=== PATIENT | male | born 1945 | race African-American/Black ===

== ENCOUNTER 2016-08-17 07:40 | Day surgery (SDC) | payer OTHER, BC ==
[2016-08-17 08:48] LABS: MCH 28.3 pg (25.7-33.7); MCHC 31.1 g/dl (32.0-35.9); MEAN CELL VOLUME 91.2 fl (80-96); MEAN PLT VOLUME 9.9 fl (7.5-11.1); PLATELET COUNT 618 K/MM3 (134-434); RDW 31.2 % (11.9-15.9); WHITE BLOOD COUNT 12.5 K/mm3 (4.0-10.0)
[2016-08-17 09:13] LABS: BILIRUBIN,DIRECT 0.3 mg/dL (0.0-0.2); BILIRUBIN,TOTAL 1.3 mg/dL (0.2-1.0); CALCIUM 9.1 mg/dL (8.5-10.1); CREATININE 0.7 mg/dL (0.7-1.3); TOT PROT 6.2 g/dl (6.4-8.2)
[2016-08-17 10:38] LABS: METAMYELOCYTE 1 % (0-2)
[2016-08-17 10:39] LABS: ANISOCYTOSIS 3+; HYPOCHROMIA 2+; MICROCYTOSIS 1+; PLATELET ESTIMATE MOD INCREASED (NORMAL); POLYCHROMASIA 1+
[2016-08-17] MEDS ORDERED: FUROSEMIDE 100 MG/10 ML INJECTABLE VIAL ONE (18:04)
[2016-08-17] MEDS ORDERED: FUROSEMIDE 40 MG/4 ML INJECTABLE VIAL IVPUSH STA (18:19)
[2016-08-17 20:09] LABS: MCH 27.8 pg (25.7-33.7); MCHC 30.8 g/dl (32.0-35.9); MEAN CELL VOLUME 90.3 fl (80-96); RDW 25.2 % (11.9-15.9)
[2016-08-17 21:16] LABS: PLATELET COUNT 604 K/MM3 (134-434); PLATELET ESTIMATE INCREASED (NORMAL)
[2016-08-17 22:12] LABS: MEAN PLT VOLUME 10.5 fl (7.5-11.1)
--- NOTE | 2016-08-17 23:05 | HP ---
Satellite [facility] - Chief Complaint Chief Complaint: Here for elective blood transfusion. no complaints History Source: Patient Limitations to Obtaining History: No Limitations - Past Medical History Allergies/Adverse Reactions: Allergies Allergy/AdvReac Type Severity Reaction Status Date / Time No Known Allergies Allergy Verified 07/12/16 12:22 Cardiovascular: Yes: HTN Pulmonary: Yes: COPD Heme/Onc: Yes: Myeloproliferative Synd, Other (MDS) - Current Medications Current Medications: Medication Instructions Recorded Tamsulosin HCl 0.4 mg PO DAILY 08/31/12 Anagrelide HCl [Agrylin -] 1 mg PO BID 04/11/14 Aspirin [ASA -] 81 mg PO DAILY 04/11/14 Prochlorperazine Maleate 10 mg PO PRN PRN 12/22/15 Deferasirox [Jadenu] 720 mg OD BID 07/12/16 Sotalol HCl [Betapace -] 80 mg PO BID@0800,2000 #60 tablet 07/14/16 Ceftin - 500 mg PO BID 08/17/16 Omeprazole 20 mg PO DAILY 08/17/16 Prednisone 10 mg PO BID 08/17/16 Satellite Physical Exam - Physical Examination Vital Signs: Vital Signs Period Temp Pulse Resp BP Sys/Paredes Pulse Ox Last 24 Hr 97.9 F-98.2 F 75-79 20-20 128-137/62-65 99 General Appearance: Well Nourished, Well Developed, Alert & Oriented x3 Lung: Clear to auscultation, Normal air movement Heart: Regular rate & rhythm, Normal S1, Normal S2 Abdomen: Soft, No tenderness, Normal bowel sounds Extremities: No edema Neurological: Intact Satellite Impression/Plan - Impression/Plan Impression: 71 y/o patient with myeloproliferative disorder. On anagrelide/asa/ jadenu/prednisone. transfuse
[2016-08-18 07:28] LABS: MCH 28.3 pg (25.7-33.7); MCHC 32.1 g/dl (32.0-35.9); MEAN CELL VOLUME 88.3 fl (80-96); MEAN PLT VOLUME 8.4 fl (7.5-11.1); PLATELET COUNT 489 K/MM3 (134-434); RDW 24.6 % (11.9-15.9); WHITE BLOOD COUNT 13.6 K/mm3 (4.0-10.0)
--- NOTE | 2016-08-18 17:27 | PN ---
Progress Note (short form) - Note Progress Note: Patient seen and examined Denies any complaints Last Vital Signs Temp Pulse Resp BP Pulse Ox 97.9 F 75 20 125/57 98 08/18/16 14:09 08/18/16 14:09 08/18/16 14:09 08/18/16 14:09 08/18/16 09:00 HEENT: VIVIAN, EOM Intact Oropharynx: No thrush, No mucositis Cor: RSR, No murmurs, No gallops Lungs: Clear to P&A Abd: Soft, Normal bowel sounds, No organomegaly Ext:No significant edema Skin: No rashes, Integument intact Abnormal Lab Results 08/17/16 08/17/16 08/18/16 06:00 19:20 06:00 WBC 13.0 H 13.6 H RBC 2.92 L 2.85 L Hgb 8.1 L D 8.1 L Hct 26.4 L D 25.2 L MCHC 30.8 L RDW 25.2 H 24.6 H Plt Count 604 H 489 H Crossmatch See Detail Abnormal Lab Results 08/17/16 08/17/16 08/18/16 06:00 19:20 06:00 WBC 13.0 H 13.6 H RBC 2.92 L 2.85 L Hgb 8.1 L D 8.1 L Hct 26.4 L D 25.2 L MCHC 30.8 L RDW 25.2 H 24.6 H Plt Count 604 H 489 H Crossmatch See Detail MEds reviewed A/P 71 y/o patient with MPD On agrylin/jadenu/ASA On prednisone 10mg bid s/p 3 units PRBCs
[2016-08-18] MEDS ORDERED: FUROSEMIDE 40 MG/4 ML INJECTABLE VIAL IVPB ONE (17:48)
[2016-08-18 18:50] VITALS: BP 143/63; PULSE 80; TEMP 98.1
== END 2016-08-18 19:31 | disposition home or self-care (01) ==
LOC: JBLOOD 07:40 → J7W 07:41 → JBLOOD 08-18 19:31
PROVIDERS: ATTEND Internal Medicine Hematology & Oncology
PROC: 30233N1 Transfusion of Nonautologous Red Blood Cells into Peripheral Vein, Percutaneous Approach (ICD-10-PCS; principal; 2016-08-17)
DX: D46.9 Myelodysplastic syndrome, unspecified (principal); I10 Essential (primary) hypertension; J44.9 Chronic obstructive pulmonary disease, unspecified
CPT/HCPCS: 36415; 36430; 80048; 80076; 85025; 85027; 86850; 86900; 86901; 86922; P9038; P9058

== ENCOUNTER 2016-10-17 08:01 | Day surgery (SDC) | payer OTHER, BC ==
[2016-10-17 09:08] LABS: MCH 29.8 pg (25.7-33.7); MCHC 31.3 g/dl (32.0-35.9); MEAN CELL VOLUME 95.2 fl (80-96); MEAN PLT VOLUME 10.4 fl (7.5-11.1); PLATELET COUNT 210 K/MM3 (134-434); RDW 34.6 % (11.9-15.9); WHITE BLOOD COUNT 15.3 K/mm3 (4.0-10.0)
[2016-10-17 09:29] LABS: ALBUMIN 4.2 g/dl (3.4-5.0); ANION GAP 6 (8-16); BILIRUBIN,TOTAL 1.7 mg/dL (0.2-1.0); CALCIUM 9.4 mg/dL (8.5-10.1); CO2 31 mmol/L (21-32); CREATININE 0.7 mg/dL (0.7-1.3); GLUCOSE,RANDOM 91 mg/dL (74-106); SGOT/AST 16 U/L (15-37); SGPT/ALT 30 U/L (12-78); TOT PROT 6.4 g/dl (6.4-8.2)
[2016-10-17 09:30] LABS: ALK PHOS 55 U/L (45-117)
[2016-10-17 16:47] VITALS: BP 134/62; PULSE 90; TEMP 98.4
[2016-10-17 19:05] LABS: METAMYELOCYTE 1 % (0-2)
[2016-10-17 19:06] LABS: ANISOCYTOSIS 2+; HYPOCHROMIA 1+; MICROCYTOSIS 1+; OVALOCYTES 1+; PLATELET ESTIMATE ADEQUATE (NORMAL); POLYCHROMASIA 1+
[2016-10-17 20:40] LABS: MCH 29.7 pg (25.7-33.7); MCHC 32.1 g/dl (32.0-35.9); MEAN CELL VOLUME 92.6 fl (80-96); RDW 29.3 % (11.9-15.9); WHITE BLOOD COUNT 13.1 K/mm3 (4.0-10.0)
--- NOTE | 2016-10-17 20:46 | HP ---
Satellite [facility] - Chief Complaint Chief Complaint: here for elective blood transfusion. RLE pain much improved History Source: Patient Limitations to Obtaining History: No Limitations - Past Medical History Allergies/Adverse Reactions: Allergies Allergy/AdvReac Type Severity Reaction Status Date / Time No Known Allergies Allergy Verified 07/12/16 12:22 Cardiovascular: Yes: HTN Pulmonary: Yes: COPD Heme/Onc: Yes: Myeloproliferative Synd, Other (MDS) - Current Medications Current Medications: Home Medications Medication Instructions Recorded Tamsulosin HCl 0.4 mg PO DAILY 08/31/12 Anagrelide HCl [Agrylin -] 1 mg PO BID 04/11/14 Aspirin [ASA -] 81 mg PO DAILY 04/11/14 Deferasirox [Jadenu] 720 mg OD BID 07/12/16 Sotalol HCl [Betapace -] 80 mg PO BID@0800,2000 #60 tablet 07/14/16 Ceftin - 500 mg PO BID 08/17/16 Omeprazole 20 mg PO DAILY 08/17/16 Prednisone 10 mg PO BID 08/17/16 Atovaquone 1,500 mg PO DAILY 10/17/16 Satellite Physical Exam - Physical Examination Vital Signs: Vital Signs Period Temp Pulse Resp BP Sys/Paredes Pulse Ox Last 24 Hr 98.0 F-98.4 F 90-98 20-20 134-134/62-85 General Appearance: Alert & Oriented x3, No Distress Lung: Clear to auscultation, Normal air movement Heart: Regular rate & rhythm, Normal S1, Normal S2 Abdomen: Soft, No tenderness, Normal bowel sounds Neurological: Intact Satellite Impression/Plan - Impression/Plan Impression: 71 y/o with myeloproliferative disorder. on anagrelide/asa/jadenu. transfuse 2 units prbcs. continue prednisone. f/u outpatient 2 weeks
[2016-10-18 02:57] LABS: PLATELET COUNT 211 K/MM3 (134-434)
[2016-10-18 02:58] LABS: PLATELET COMMENT2 NO CLUMPING NOTED; PLATELET ESTIMATE ADEQUATE (NORMAL)
[2016-10-18 02:59] LABS: ANISOCYTOSIS 1+; HYPOCHROMIA 2+; MICROCYTOSIS 1+; POIKILOCYTOSIS 1+; POLYCHROMASIA 1+
== END 2016-10-17 22:14 | disposition home or self-care (01) ==
LOC: JBLOOD 08:01 → J7W 08:01 → JBLOOD 22:14
PROVIDERS: ATTEND Internal Medicine Hematology & Oncology
PROC: 30233N1 Transfusion of Nonautologous Red Blood Cells into Peripheral Vein, Percutaneous Approach (ICD-10-PCS; principal; 2016-10-17)
DX: D64.9 Anemia, unspecified (principal); D75.81 Myelofibrosis
CPT/HCPCS: 36415; 36430; 80053; 85025; 86850; 86900; 86901; 86922; P9038; P9058

== ENCOUNTER 2016-11-21 06:59 | Day surgery (SDC) | payer OTHER, BC ==
[2016-11-21] MEDS ORDERED: FUROSEMIDE 40 MG/4 ML INJECTABLE VIAL IVPUSH SCH (11:30)
[2016-11-21 12:31] LABS: ALBUMIN 3.8 g/dl (3.4-5.0); ALK PHOS 44 U/L (45-117); ANION GAP 9 (8-16); BILIRUBIN,TOTAL 1.2 mg/dL (0.2-1.0); CALCIUM 8.8 mg/dL (8.5-10.1); CO2 26 mmol/L (21-32); COCKROFT - GAULT 0; CREATININE 0.7 mg/dL (0.7-1.3); GLUCOSE,RANDOM 115 mg/dL (74-106); SGOT/AST 16 U/L (15-37); SGPT/ALT 32 U/L (12-78)
[2016-11-21 12:32] LABS: MCH 29.5 pg (25.7-33.7); MCHC 30.7 g/dl (32.0-35.9); MEAN PLT VOLUME 10.3 fl (7.5-11.1); RDW 34.1 % (11.9-15.9); WHITE BLOOD COUNT 14.4 K/mm3 (4.0-10.0)
[2016-11-21 15:10] LABS: PLATELET COUNT 246 K/MM3 (134-434); PLATELET ESTIMATE ADEQUATE (NORMAL)
[2016-11-21 15:11] LABS: HYPOCHROMIA 2+; TEAR DROP CELLS 2+
[2016-11-21 15:12] LABS: FRAGMENTED CELL FEW; PLATELET COMMENT2 NO CLUMPING NOTED; TARGET CELLS 2+
[2016-11-21 23:30] VITALS: BP 153/70; PULSE 81; TEMP 98.4
--- NOTE | 2016-11-22 06:59 | HP ---
[facility] - Chief Complaint Chief Complaint: Patient seen and examined 11/21/16. Admitted for elective blood transfusion. denies any specific complaints History Source: Patient Limitations to Obtaining History: No Limitations - Past Medical History Allergies/Adverse Reactions: Allergies Allergy/AdvReac Type Severity Reaction Status Date / Time No Known Allergies Allergy Verified 07/12/16 12:22 Cardiovascular: Yes: HTN Pulmonary: Yes: COPD Heme/Onc: Yes: Myeloproliferative Synd, Other (MDS) - Current Medications Current Medications: Home Medications Medication Instructions Recorded Tamsulosin HCl 0.4 mg PO DAILY 08/31/12 Anagrelide HCl [Agrylin -] 1 mg PO BID 04/11/14 Aspirin [ASA -] 81 mg PO DAILY 04/11/14 Deferasirox [Jadenu] 720 mg OD BID 07/12/16 Sotalol HCl [Betapace -] 80 mg PO BID@0800,2000 #60 tablet 07/14/16 Ceftin - 500 mg PO BID 08/17/16 Omeprazole 20 mg PO DAILY 08/17/16 Prednisone 10 mg PO BID 08/17/16 Atovaquone 1,500 mg PO DAILY 10/17/16 [facility] Physical Exam - Physical Examination Vital Signs: Vital Signs Period Temp Pulse Resp BP Sys/Paredes Pulse Ox Last 24 Hr 98.4 F-99.4 F 80-81 18-20 115-161/52-80 General Appearance: Well Nourished, Alert & Oriented x3 Lung: Clear to auscultation, Normal air movement Heart: Regular rate & rhythm, Normal S1, Normal S2 Abdomen: Soft, No tenderness Extremities: No edema Neurological: Intact Satellite Impression/Plan - Impression/Plan Impression: MPD/MDS. transfusion dependent. On prednisone, anagrelide, asa, mepron. On jadenu. platelets well controlled. 2 units PRBCs with lasix in between. f/u 2 weeks
== END 2016-11-21 22:43 | disposition home or self-care (01) ==
LOC: JONCBLOOD 06:59 → J7W 09:06 → JONCBLOOD 22:43
PROVIDERS: ATTEND Internal Medicine Hematology & Oncology
PROC: 30233N1 Transfusion of Nonautologous Red Blood Cells into Peripheral Vein, Percutaneous Approach (ICD-10-PCS; principal; 2016-11-21)
DX: D46.9 Myelodysplastic syndrome, unspecified (principal)
CPT/HCPCS: 36415; 36430; 80053; 85027; 86850; 86900; 86901; 86922; P9038; P9058

== ENCOUNTER 2017-01-05 07:19 | Day surgery (SDC) | payer OTHER, BC ==
[2017-01-05 09:34] LABS: MCHC 30.3 g/dl (32.0-35.9); MEAN CELL VOLUME 95.7 fl (80-96); MEAN PLT VOLUME 10.9 fl (7.5-11.1); WHITE BLOOD COUNT 19.8 K/mm3 (4.0-10.0)
[2017-01-05 10:00] LABS: ALBUMIN 4.4 g/dl (3.4-5.0); ALK PHOS 58 U/L (45-117); ANION GAP 5 (8-16); BILIRUBIN,TOTAL 1.4 mg/dL (0.2-1.0); CALCIUM 9.7 mg/dL (8.5-10.1); CO2 30 mmol/L (21-32); COCKROFT - GAULT 0; CREATININE 0.7 mg/dL (0.7-1.3); GLUCOSE,RANDOM 97 mg/dL (74-106); SGOT/AST 22 U/L (15-37); SGPT/ALT 29 U/L (12-78); TOT PROT 6.6 g/dl (6.4-8.2)
[2017-01-05] MEDS ORDERED: FUROSEMIDE 40 MG/4 ML INJECTABLE VIAL IVPUSH ONE ×2 (10:00→14:30)
[2017-01-05 12:51] LABS: HYPOCHROMIA 3+; MICROCYTOSIS 2+; PLATELET COUNT 330 K/MM3 (134-434)
[2017-01-05 12:52] LABS: ANISOCYTOSIS 2+
--- NOTE | 2017-01-05 14:53 | HP ---
Satellite [facility] - Chief Complaint Chief Complaint: Here for f/u of MPD. Denies any fever/chills/cough/SOB/ abdominal pain/nausea/vomiting/diarrhea/urinary symptoms History Source: Patient Limitations to Obtaining History: No Limitations - Past Medical History Allergies/Adverse Reactions: Allergies Allergy/AdvReac Type Severity Reaction Status Date / Time No Known Allergies Allergy Verified 07/12/16 12:22 Cardiovascular: Yes: HTN Pulmonary: Yes: COPD Heme/Onc: Yes: Myeloproliferative Synd, Other (MDS) - Current Medications Current Medications: Home Medications Medication Instructions Recorded Tamsulosin HCl 0.4 mg PO DAILY 08/31/12 Anagrelide HCl [Agrylin -] 1 mg PO BID 04/11/14 Aspirin [ASA -] 81 mg PO DAILY 04/11/14 Deferasirox [Jadenu] 720 mg OD BID 07/12/16 Sotalol HCl [Betapace -] 80 mg PO BID@0800,2000 #60 tablet 07/14/16 Ceftin - 500 mg PO BID 08/17/16 Omeprazole 20 mg PO DAILY 08/17/16 Prednisone 10 mg PO BID 08/17/16 Atovaquone 1,500 mg PO DAILY 10/17/16 Satellite Physical Exam - Physical Examination Vital Signs: Vital Signs Period Temp Pulse Resp BP Sys/Paredes Pulse Ox Last 24 Hr 97.8 F 72 18 122/74 General Appearance: Well Nourished, Well Developed Lung: Clear to auscultation, Normal air movement Heart: Regular rate & rhythm, Normal S1, Normal S2 Abdomen: Soft, No tenderness, Normal bowel sounds Extremities: No edema Neurological: Intact Satellite Impression/Plan - Impression/Plan Impression: Myeloproliferative disorder/MDS. transfusion dependent. continue anagrelide/asa/prednisone/mepron, jadenu. patient leaving on vacation and returning on 01/25
[2017-01-05] MEDS ORDERED: FUROSEMIDE 100 MG/10 ML INJECTABLE VIAL ONE (15:30)
[2017-01-05 21:27] LABS: MCH 28.5 pg (25.7-33.7); MCHC 31.1 g/dl (32.0-35.9); MEAN CELL VOLUME 91.6 fl (80-96); MEAN PLT VOLUME 11.2 fl (7.5-11.1); PLATELET COUNT 335 K/MM3 (134-434); WHITE BLOOD COUNT 21.3 K/mm3 (4.0-10.0)
[2017-01-05 21:31] VITALS: BP 149/77; PULSE 86; TEMP 98.8
[2017-01-06 03:19] LABS: PLATELET ESTIMATE INCREASED (NORMAL)
[2017-01-06 03:20] LABS: PLATELET COMMENT2 FEW GIANT PLTS; PLATELET COMMENT3 NO CLUMPING NOTED
== END 2017-01-05 21:48 | disposition home or self-care (01) ==
LOC: JONCBLOOD 07:19 → J7W 08:34 → JONCBLOOD 21:48
PROVIDERS: ATTEND Internal Medicine Hematology & Oncology
PROC: 30233N1 Transfusion of Nonautologous Red Blood Cells into Peripheral Vein, Percutaneous Approach (ICD-10-PCS; principal; 2017-01-05)
PROC: 3E033GC Introduction of Other Therapeutic Substance into Peripheral Vein, Percutaneous Approach (ICD-10-PCS; 2017-01-05)
DX: D46.9 Myelodysplastic syndrome, unspecified (principal); I10 Essential (primary) hypertension; J44.9 Chronic obstructive pulmonary disease, unspecified
CPT/HCPCS: 36415; 36430; 80053; 85027; 86850; 86900; 86901; 86922; P9038; P9058

== ENCOUNTER 2017-01-07 10:46 | Emergency (ER) | payer OTHER, BC ==
[2017-01-07 10:51] VITALS: TEMP 98; BMI 24.3
--- NOTE | 2017-01-07 11:08 | PDOC ---
History of Present Illness - General History Source: Patient Exam Limitations: No Limitations - History of Present Illness Initial Comments: 01/07/17 11:26 The patient is a 71 year old male with a significant past medical history of myeloproliferative disorder and hypertension, who presents to the ER with left hip swelling and pain s/p fall last night. Patient states he slipped and fell in his bathtub, landing on the bathroom floor. Patient says he hit the left side of his body. On interview, patient states he has pain and swelling in the left hip. He says he has difficulty walking and decreased range of motion to the left leg secondary to the pain. Denies loss of consciousness Denies back pain or head trauma Denies lightheadedness, dizziness Denies numbness or paresthesia Cracking And Fanning Machine Operator: Dr. Bogdan Childs Oncologist: Dr. Guzman <Nicolette Wagner - Last Filed: 01/07/17 13:17> <Reba Escoto - Last Filed: 01/07/17 13:31> - General Chief Complaint: Injury Stated Complaint: FALL/ SWOLLEN LT SIDE, PAIN Time Seen by Provider: 01/07/17 10:55 Past History <Nicolette Wagner - Last Filed: 01/07/17 13:17> - Past Medical History Anemia: Yes Asthma: No Cancer: Yes (Blood (MDS)) Cardiac Disorders: Yes CVA: No COPD: No CHF: No Dementia: No Diabetes: No GI Disorders: No Disorders: No HTN: Yes Hypercholesterolemia: No Liver Disease: No Seizures: No Thyroid Disease: No - Surgical History Abdominal Surgery: Yes (RT INGUINAL HERNIA) Appendectomy: No Cardiac Surgery: No Cholecystectomy: No Lung Surgery: No Neurologic Surgery: No Orthopedic Surgery: No - Psycho/Social/Smoking Cessation Hx Suicidal Ideation: No Smoking Status: Yes Smoking History: Former smoker Have you smoked in the past 12 months: No Number of Cigarettes Smoked Daily: 0 If you are a former smoker, when did you quit?: 1 YR Information on smoking cessation initiated: No 'Breaking Loose' booklet given: 08/17/16 Hx Alcohol Use: No Drug/Substance Use Hx: No Substance Use Type: None Hx Substance Use Treatment: No <Reba Escoto - Last Filed: 01/07/17 13:31> - Past Medical History Allergies/Adverse Reactions: Allergies Allergy/AdvReac Type Severity Reaction Status Date / Time No Known Allergies Allergy Verified 01/07/17 10:51 Home Medications: Ambulatory Orders Tamsulosin HCl 0.4 mg PO DAILY 08/31/12 Anagrelide HCl [Agrylin -] 1 mg PO BID 04/11/14 Aspirin [ASA -] 81 mg PO DAILY 04/11/14 Deferasirox [Jadenu] 720 mg OD BID 07/12/16 Sotalol HCl [Betapace -] 80 mg PO BID@0800,2000 #60 tablet 07/14/16 Omeprazole 20 mg PO DAILY 08/17/16 Prednisone 10 mg PO BID 08/17/16 Atovaquone 1,500 mg PO DAILY 10/17/16 Methocarbamol [Robaxin -] 500 mg PO BID PRN #14 tablet 01/07/17 Tramadol HCl [Ultram -] 50 mg PO Q6H PRN #12 tablet MDD 4 tabs 01/07/17 Review of Systems - Review of Systems Able to Perform ROS?: Yes Comments:: 01/07/17 11:26 GENERAL/CONSTITUTIONAL: No fever or chills. No weakness. HEAD, EYES, EARS, NOSE AND THROAT: No change in vision. No ear pain or discharge. No sore throat. CARDIOVASCULAR: No chest pain or shortness of breath. RESPIRATORY: No cough, wheezing, or hemoptysis. GASTROINTESTINAL: No nausea, vomiting, diarrhea or constipation. GENITOURINARY: No dysuria, frequency, or change in urination. MUSCULOSKELETAL: (+) left hip swelling and associated pain. No neck or back pain. SKIN: No rash NEUROLOGIC: No headache, vertigo, loss of consciousness, or change in strength/ sensation. ENDOCRINE: No increased thirst. No abnormal weight change. HEMATOLOGIC/LYMPHATIC: No anemia, easy bleeding, or history of blood clots. ALLERGIC/IMMUNOLOGIC: No hives or skin allergy. <Uts,Nicolette - Last Filed: 01/07/17 13:17> *Physical Exam - Vital Signs Last Vital Signs Temp Pulse Resp BP Pulse Ox 98.0 F 90 20 115/62 98 01/07/17 10:48 01/07/17 10:48 01/07/17 10:48 01/07/17 10:48 01/07/17 10:48 <Uts,Nicolette - Last Filed: 01/07/17 13:17> - Vital Signs Last Vital Signs Temp Pulse Resp BP Pulse Ox 98.0 F 90 20 115/62 98 01/07/17 10:48 01/07/17 10:48 01/07/17 10:48 01/07/17 10:48 01/07/17 10:48 - Physical Exam Comments: GENERAL: Awake, alert, and fully oriented, in no acute distress HEAD: No signs of trauma EYES: PERRLA, EOMI, sclera anicteric, conjunctiva clear ENT: Auricles normal inspection, hearing grossly normal, nares patent, oropharynx clear without exudates. Moist mucosa NECK: Normal ROM, supple, no lymphadenopathy, JVD, or masses LUNGS: Breath sounds equal, clear to auscultation bilaterally. No wheezes, and no crackles HEART: Regular rate and rhythm, normal S1 and S2, no murmurs, rubs or gallops ABDOMEN: Soft, nontender, normoactive bowel sounds. No guarding, no rebound. No masses EXTREMITIES: L hip slightly decreased forward flexion due to pain. +Tenderness to L hip and iliac crest. Remainder of extremities with normal range of motion, no edema. No clubbing or cyanosis. No cords, erythema, or tenderness NEUROLOGICAL: Cranial nerves II through XII grossly intact. Normal speech. Motor and sensation intact. +Antalgic gait. SKIN: Warm, Dry, normal turgor, no rashes or lesions noted. <Reba Escoto - Last Filed: 01/07/17 13:31> ED Treatment Course - RADIOLOGY Radiograph Interpretation: 01/07/17 13:18 Left hip/pelvis XR impression reported by Dr. Dov Ramos: Old left hip deformity. No acute pathology appreciated <[facility]Wilmera - Last Filed: 01/07/17 13:17> *DC/Admit/Observation/Transfer <[facility] HospitalNicolette - Last Filed: 01/07/17 13:17> - Discharge Dispostion Admit: No <Reba Escoto - Last Filed: 01/07/17 13:31> Diagnosis at time of Disposition: Low back pain Qualifiers: Chronicity: acute Back pain laterality: unspecified Sciatica presence: without sciatica Qualified Code(s): M54.5 - Low back pain - Discharge Dispostion Disposition: HOME Condition at time of disposition: Stable - Prescriptions Prescriptions: Methocarbamol [Robaxin -] 500 mg PO BID PRN #14 tablet PRN Reason: Muscle Spasms Tramadol HCl [Ultram -] 50 mg PO Q6H PRN #12 tablet MDD 4 tabs PRN Reason: Pain
[2017-01-07] MEDS ORDERED: traMADol HCL 50 MG TABLET PO ONE (12:19)
[2017-01-07] MEDS ORDERED: traMADol HCL 50 MG TABLET ONE (12:30)
[2017-01-07 13:39] VITALS: BP 132/72; PULSE 79
== END 2017-01-07 13:38 | disposition home or self-care (01) ==
LOC: JER 10:46
DX: M54.5 Low back pain (principal); C94.6 Myelodysplastic disease, not elsewhere classified; W18.2XXA Fall in (into) shower or empty bathtub, initial encounter; Y93.E1 Activity, personal bathing and showering; Y92.012 Bathroom of single-family (private) house as the place of occurrence of the external cause
CPT/HCPCS: 73523-TC; 99282-25

== ENCOUNTER 2017-01-27 08:11 | Day surgery (SDC) | payer OTHER, BC ==
[2017-01-27 08:36] LABS: MCH 29.1 pg (25.7-33.7); MCHC 30.9 g/dl (32.0-35.9); MEAN CELL VOLUME 93.9 fl (80-96); MEAN PLT VOLUME 10.5 fl (7.5-11.1); PLATELET COUNT 353 K/MM3 (134-434); RDW 33.3 % (11.9-15.9)
[2017-01-27 08:37] LABS: WHITE BLOOD COUNT 19.1 K/mm3 (4.0-10.0)
[2017-01-27 09:02] LABS: ALBUMIN 3.8 g/dl (3.4-5.0); ALK PHOS 54 U/L (45-117); ANION GAP 6 (8-16); BILIRUBIN,TOTAL 1.5 mg/dL (0.2-1.0); CALCIUM 9.5 mg/dL (8.5-10.1); CO2 28 mmol/L (21-32); CREATININE 0.6 mg/dL (0.7-1.3); GLUCOSE,RANDOM 94 mg/dL (74-106); SGOT/AST 18 U/L (15-37); SGPT/ALT 23 U/L (12-78); TOT PROT 5.9 g/dl (6.4-8.2)
[2017-01-27 09:51] LABS: METAMYELOCYTE 1 % (0-2)
[2017-01-27 09:56] LABS: HYPOCHROMIA 2+
[2017-01-27 09:57] LABS: ANISOCYTOSIS 4+; FRAGMENTED CELL FEW; MICROCYTOSIS 1+; SCHISTOCYTES FEW; TARGET CELLS 3+; TEAR DROP CELLS FEW
[2017-01-27 10:04] LABS: PLATELET COMMENT2 FEW GIANT PLTS; PLATELET ESTIMATE ADEQUATE (NORMAL)
[2017-01-27 10:40] VITALS: TEMP 98.2
[2017-01-27] MEDS ORDERED: FUROSEMIDE 40 MG/4 ML INJECTABLE VIAL IVPUSH ONE (15:15)
--- NOTE | 2017-01-27 17:50 | HP ---
Satellite [facility] - Chief Complaint Chief Complaint: PAtient seen and examined. Here for f/u of MPD. No fever/ chills/cough/SOB/abdominal pain/n/vomiting/diarhea/urinary symptoms History Source: Patient Limitations to Obtaining History: No Limitations - Past Medical History Allergies/Adverse Reactions: Allergies Allergy/AdvReac Type Severity Reaction Status Date / Time No Known Allergies Allergy Verified 01/07/17 10:51 Cardiovascular: Yes: HTN Pulmonary: Yes: COPD Heme/Onc: Yes: Myeloproliferative Synd, Other (MDS) - Current Medications Current Medications: Home Medications Medication Instructions Recorded Tamsulosin HCl 0.4 mg PO DAILY 08/31/12 Anagrelide HCl [Agrylin -] 1 mg PO BID 04/11/14 Aspirin [ASA -] 81 mg PO DAILY 04/11/14 Deferasirox [Jadenu] 720 mg OD BID 07/12/16 Sotalol HCl [Betapace -] 80 mg PO BID@0800,2000 #60 tablet 07/14/16 Omeprazole 20 mg PO DAILY 08/17/16 Prednisone 10 mg PO BID 08/17/16 Atovaquone 1,500 mg PO DAILY 10/17/16 Methocarbamol [Robaxin -] 500 mg PO BID PRN #14 tablet 01/07/17 Tramadol HCl [Ultram -] 50 mg PO Q6H PRN #12 tablet MDD 4 01/07/17 tabs Satellite Physical Exam - Physical Examination Vital Signs: Vital Signs Period Temp Pulse Resp BP Sys/Paredes Pulse Ox Last 24 Hr 98.2 F 86 17 150/68 General Appearance: Well Nourished, Alert & Oriented x3 Lung: Clear to auscultation, Normal air movement Heart: Regular rate & rhythm, Normal S1, Normal S2 Abdomen: Soft, No tenderness Extremities: No edema Neurological: Intact Satellite Impression/Plan - Impression/Plan Impression: MPD. On anagrelide/jadenu/ASA/prednisone. getting PRBCS. platelets well controlled
[2017-01-27 20:45] LABS: MCH 28.6 pg (25.7-33.7); MCHC 30.7 g/dl (32.0-35.9); MEAN CELL VOLUME 93.4 fl (80-96); MEAN PLT VOLUME 9.9 fl (7.5-11.1); PLATELET COUNT 299 K/MM3 (134-434); RDW 31.1 % (11.9-15.9); WHITE BLOOD COUNT 19.6 K/mm3 (4.0-10.0)
[2017-01-27 21:21] VITALS: BP 140/72; PULSE 85
== END 2017-01-27 21:00 | disposition home or self-care (01) ==
LOC: JONCBLOOD 08:11 → J7W 08:12 → JONCBLOOD 21:00
PROVIDERS: ATTEND Internal Medicine Hematology & Oncology
PROC: 30233N1 Transfusion of Nonautologous Red Blood Cells into Peripheral Vein, Percutaneous Approach (ICD-10-PCS; principal; 2017-01-27)
PROC: 3E033GC Introduction of Other Therapeutic Substance into Peripheral Vein, Percutaneous Approach (ICD-10-PCS; 2017-01-27)
DX: D46.9 Myelodysplastic syndrome, unspecified (principal); I10 Essential (primary) hypertension; J44.9 Chronic obstructive pulmonary disease, unspecified; Z79.82 Long term (current) use of aspirin
CPT/HCPCS: 36415; 36430; 80053; 85027; 86850; 86900; 86901; 86922; P9038; P9058

== ENCOUNTER 2017-02-28 07:20 | Day surgery (SDC) | payer OTHER, BC ==
[2017-02-28 08:36] LABS: MCH 28.8 pg (25.7-33.7); MCHC 31.3 g/dl (32.0-35.9); MEAN CELL VOLUME 91.8 fl (80-96); MEAN PLT VOLUME 10.6 fl (7.5-11.1); PLATELET COUNT 413 K/MM3 (134-434); WHITE BLOOD COUNT 23.8 K/mm3 (4.0-10.0)
[2017-02-28] MEDS ORDERED: FUROSEMIDE 40 MG/4 ML INJECTABLE VIAL IVPUSH ONE ×2 (11:00→13:45)
[2017-02-28 12:23] LABS: ANISOCYTOSIS 4+; MICROCYTOSIS 1+; TARGET CELLS 3+; TEAR DROP CELLS 1+
[2017-02-28 20:59] LABS: MCH 27.4 pg (25.7-33.7); MCHC 30.4 g/dl (32.0-35.9); MEAN CELL VOLUME 90.2 fl (80-96); MEAN PLT VOLUME 10.9 fl (7.5-11.1); WHITE BLOOD COUNT 25.7 K/mm3 (4.0-10.0)
--- NOTE | 2017-02-28 21:17 | HP ---
Admitting History and Physical - Admission Chief Complaint: Symptomatic anemia History Source: Patient, Medical Record - Past Medical History Cardiovascular: Yes: HTN Pulmonary: Yes: COPD Heme/Onc: Yes: Myeloproliferative Synd, Other (MDS) - Past Surgical History Past Surgical History: Yes: Hernia Repair - Smoking History Smoking history: Former smoker Have you smoked in the past 12 months: No Aproximately how many cigarettes per day: 0 If you are a former smoker, when did you quit?: 1 YR - Alcohol/Substance Use Hx Alcohol Use: No Home Medications - Allergies Allergies/Adverse Reactions: Allergies Allergy/AdvReac Type Severity Reaction Status Date / Time No Known Allergies Allergy Verified 01/07/17 10:51 - Home Medications Home Medications: Ambulatory Orders Tamsulosin HCl 0.4 mg PO DAILY 08/31/12 Anagrelide HCl [Agrylin -] 1 mg PO BID 04/11/14 Aspirin [ASA -] 81 mg PO DAILY 04/11/14 Deferasirox [Jadenu] 720 mg OD BID 07/12/16 Sotalol HCl [Betapace -] 80 mg PO BID@0800,2000 #60 tablet 07/14/16 Omeprazole 20 mg PO DAILY 08/17/16 Prednisone 10 mg PO BID 08/17/16 Atovaquone 1,500 mg PO DAILY 10/17/16 Methocarbamol [Robaxin -] 500 mg PO BID PRN #14 tablet 01/07/17 Tramadol HCl [Ultram -] 50 mg PO Q6H PRN #12 tablet MDD 4 tabs 01/07/17 Cefuroxime Axetil [Ceftin -] 500 mg PO Q12H 01/27/17 Amlodipine Besylate [Norvasc -] 5 mg PO DAILY 02/28/17 Review of Systems - Review of Systems Constitutional: denies: Diaphoresis, Lethargy, Loss of Appetite, Night Sweats, Weakness Eyes: reports: Other (for cataract surgery) HENT: denies: Difficult Swallowing Neck: denies: Pain on Movement, Stiffness Cardiovascular: denies: Chest Pain, Shortness of Breath Respiratory: denies: SOB, SOB on Exertion Gastrointestinal: denies: Constipation, Diarrhea, Nausea, Vomiting Genitourinary: reports: Other (nocturia x 2). denies: Burning, Dysuria Musculoskeletal: reports: No Symptoms Integumentary: reports: No Symptoms Neurological: reports: No Symptoms, Seizure Hematology/Lymphatic: denies: Easily Bruised, Excessive Bleeding, Swollen Glands Psychiatric: reports: No Symptoms Physical Examination Vital Signs: Vital Signs Temperature 98.2 F 02/28/17 13:49 Pulse Rate 86 02/28/17 13:49 Respiratory Rate 18 02/28/17 13:49 Blood Pressure 127/56 02/28/17 13:49 O2 Sat by Pulse Oximetry (%) Constitutional: Yes: No Distress Eyes: Yes: PERRL. No: Ptosis, Sclera Icterus HENT: No: Nasal Congestion, Pharyngeal Erythema, Thrush Neck: Yes: Supple. No: Lymphadenopathy, Thyromegaly Cardiovascular: Yes: Regular Rate and Rhythm Respiratory: Yes: CTA Bilaterally Gastrointestinal: Yes: Normal Bowel Sounds, Soft Renal/: No: CVA Tenderness - Left, CVA Tenderness - Right Musculoskeletal: No: Muscle Pain Extremities: No: Calf Tenderness, Cyanosis Edema: No Integumentary: Yes: WNL Neurological: Yes: WNL ...Motor Strength: WNL Psychiatric: Yes: WNL Problem List - Problems (1) MDS (myelodysplastic syndrome) Assessment/Plan: MDS/MPD on agrylin /prednisone Code(s): D46.9 - MYELODYSPLASTIC SYNDROME, UNSPECIFIED (2) Anemia Assessment/Plan: Symptomatic anemia For transfusion of 2 packed cells. Code(s): D64.9 - ANEMIA, UNSPECIFIED Qualifiers:
[2017-02-28 21:38] LABS: PLATELET COMMENT2 MANY LARGE PLTS; PLATELET COUNT 388 K/MM3 (134-434); PLATELET ESTIMATE ADEQUATE (NORMAL)
[2017-02-28 21:47] VITALS: TEMP 98.3
[2017-02-28 22:50] VITALS: BP 145/66; PULSE 81
== END 2017-02-28 21:35 | disposition home or self-care (01) ==
LOC: JONCBLOOD 07:20 → J7W 07:49 → JONCBLOOD 21:35
PROVIDERS: ATTEND Internal Medicine Hematology & Oncology
PROC: 30233N1 Transfusion of Nonautologous Red Blood Cells into Peripheral Vein, Percutaneous Approach (ICD-10-PCS; principal; 2017-02-28)
PROC: 3E033GC Introduction of Other Therapeutic Substance into Peripheral Vein, Percutaneous Approach (ICD-10-PCS; 2017-02-28)
DX: D46.9 Myelodysplastic syndrome, unspecified (principal)
CPT/HCPCS: 36415; 36430; 85027; 86850; 86900; 86901; 86922; 96374; P9038; P9058

== ENCOUNTER 2017-03-15 07:28 | Day surgery (SDC) | payer OTHER, BC ==
[2017-03-15 08:25] LABS: MCH 27.5 pg (25.7-33.7); MCHC 30.8 g/dl (32.0-35.9); MEAN CELL VOLUME 89.5 fl (80-96); MEAN PLT VOLUME 10.5 fl (7.5-11.1); PLATELET COUNT 332 K/MM3 (134-434); RDW 30.6 % (11.9-15.9); WHITE BLOOD COUNT 18.8 K/mm3 (4.0-10.0)
[2017-03-15 08:52] LABS: ALBUMIN 4.2 g/dl (3.4-5.0); ALK PHOS 58 U/L (45-117); ANION GAP 9 (8-16); BILIRUBIN,DIRECT 0.3 mg/dL (0.0-0.2); BILIRUBIN,TOTAL 1.5 mg/dL (0.2-1.0); CALCIUM 9.1 mg/dL (8.5-10.1); CO2 29 mmol/L (21-32); CREATININE 0.6 mg/dL (0.7-1.3); GLUCOSE,RANDOM 90 mg/dL (74-106); SGOT/AST 14 U/L (15-37); SGPT/ALT 23 U/L (12-78); TOT PROT 6.3 g/dl (6.4-8.2)
[2017-03-15 09:54] LABS: ANISOCYTOSIS 3+; HYPOCHROMIA 3+; MICROCYTOSIS 1+; PLATELET ESTIMATE ADEQUATE (NORMAL); SCHISTOCYTES 1+; TARGET CELLS 2+
[2017-03-15 14:23] LABS: BASOPHIL 1.9 % (0-2.0); EOSINOPHIL 1.3 % (0-4.5); MCH 28.2 pg (25.7-33.7); MCHC 31.5 g/dl (32.0-35.9); MEAN CELL VOLUME 89.4 fl (80-96); MEAN PLT VOLUME 10.8 fl (7.5-11.1); NEUTROPHILS 84.2 % (42.8-82.8); RDW 28.2 % (11.9-15.9); WHITE BLOOD COUNT 18.5 K/mm3 (4.0-10.0)
[2017-03-15] MEDS ORDERED: FUROSEMIDE 40 MG/4 ML INJECTABLE VIAL IVPB ONE (14:49)
[2017-03-15 15:29] LABS: PLATELET COMMENT2 NO CLOTTING DETECTED; PLATELET ESTIMATE SLT INCREASED (NORMAL)
--- NOTE | 2017-03-15 16:02 | HP ---
Satellite [facility] - Chief Complaint History of Present Illness: here for PRBC transfusion History Source: Patient Limitations to Obtaining History: No Limitations - Past Medical History Allergies/Adverse Reactions: Allergies Allergy/AdvReac Type Severity Reaction Status Date / Time No Known Allergies Allergy Verified 01/07/17 10:51 Cardiovascular: Yes: HTN Pulmonary: Yes: COPD Heme/Onc: Yes: Myeloproliferative Synd, Other (MDS) - Current Medications Current Medications: Home Medications Medication Instructions Recorded Tamsulosin HCl 0.4 mg PO DAILY 08/31/12 Anagrelide HCl [Agrylin -] 1 mg PO BID 04/11/14 Aspirin [ASA -] 81 mg PO DAILY 04/11/14 Deferasirox [Jadenu] 720 mg OD BID 07/12/16 Sotalol HCl [Betapace -] 80 mg PO BID@0800,2000 #60 tablet 07/14/16 Omeprazole 20 mg PO DAILY 08/17/16 Prednisone 10 mg PO BID 08/17/16 Atovaquone 1,500 mg PO DAILY 10/17/16 Methocarbamol [Robaxin -] 500 mg PO BID PRN #14 tablet 01/07/17 Tramadol HCl [Ultram -] 50 mg PO Q6H PRN #12 tablet MDD 4 01/07/17 tabs Cefuroxime Axetil [Ceftin -] 500 mg PO Q12H 01/27/17 Amlodipine Besylate [Norvasc -] 5 mg PO DAILY 02/28/17 Satellite Physical Exam - Physical Examination Vital Signs: Vital Signs Period Temp Pulse Resp BP Sys/Paredes Pulse Ox Last 24 Hr 97.7 F-97.9 F 70-70 20-20 112-112/59-59 General Appearance: Well Nourished, Well Developed, Alert & Oriented x3 Lung: Clear to auscultation Heart: Regular rate & rhythm Breasts: Soft, Non-Tender Satellite Impression/Plan - Impression/Plan Impression: MPD. On anagrelide/jadenu/ASA/prednisone. getting PRBCS. Will give 2U ,with lasix inbetween
[2017-03-15 18:17] VITALS: BP 142/68; PULSE 77; TEMP 98.2
== END 2017-03-15 18:17 | disposition home or self-care (01) ==
LOC: JINFUSION 07:28 → J7W 07:29 → JINFUSION 18:17
PROVIDERS: ATTEND Internal Medicine Hematology & Oncology
PROC: 30233N1 Transfusion of Nonautologous Red Blood Cells into Peripheral Vein, Percutaneous Approach (ICD-10-PCS; principal; 2017-03-15)
DX: D46.9 Myelodysplastic syndrome, unspecified (principal); D64.9 Anemia, unspecified
CPT/HCPCS: 36415; 36430; 80048; 80076; 85025; 86850; 86900; 86901; 86922; P9038; P9058

== ENCOUNTER 2017-04-25 13:30 | Day surgery (SDC) | payer OTHER, BC ==
[2017-04-25] MEDS ORDERED: FUROSEMIDE 40 MG/4 ML INJECTABLE VIAL IVPUSH SCH (14:15)
--- NOTE | 2017-04-25 14:37 | HP ---
Satellite [facility] - Chief Complaint Chief Complaint: Here for prbc History of Present Illness: Here for 2U PRBC transfusion, sent from office, Hgb is low during the office visit. he feels fatigued and short of breath, denies any bleeding History Source: Patient Limitations to Obtaining History: No Limitations - Past Medical History Allergies/Adverse Reactions: Allergies Allergy/AdvReac Type Severity Reaction Status Date / Time No Known Allergies Allergy Verified 01/07/17 10:51 Cardiovascular: Yes: HTN Pulmonary: Yes: COPD Heme/Onc: Yes: Myeloproliferative Synd, Other (MDS) - Current Medications Current Medications: Home Medications Medication Instructions Recorded Tamsulosin HCl 0.4 mg PO DAILY 08/31/12 Anagrelide HCl [Agrylin -] 1 mg PO BID 04/11/14 Aspirin [ASA -] 81 mg PO DAILY 04/11/14 Deferasirox [Jadenu] 720 mg OD BID 07/12/16 Sotalol HCl [Betapace -] 80 mg PO BID@0800,2000 #60 tablet 07/14/16 Omeprazole 20 mg PO DAILY 08/17/16 Prednisone 10 mg PO BID 08/17/16 Atovaquone 1,500 mg PO DAILY 10/17/16 Methocarbamol [Robaxin -] 500 mg PO BID PRN #14 tablet 01/07/17 Tramadol HCl [Ultram -] 50 mg PO Q6H PRN #12 tablet MDD 4 01/07/17 tabs Cefuroxime Axetil [Ceftin -] 500 mg PO Q12H 01/27/17 Amlodipine Besylate [Norvasc -] 5 mg PO DAILY 02/28/17 Satellite Physical Exam - Physical Examination General Appearance: Well Developed, Alert & Oriented x3, Calm ENT: No Discharge Heart: Regular rate & rhythm, Normal S1, Normal S2 Abdomen: Soft, No tenderness Extremities: No edema, No tenderness/swelling Satellite Impression/Plan - Impression/Plan Impression: MPD. On anagrelide/jadenu/ASA/prednisone. getting PRBCS. Will give 2U ,with lasix inbetween
[2017-04-25 15:03] LABS: ALBUMIN 4.2 g/dl (3.4-5.0); ANION GAP 12 (8-16); BILIRUBIN,TOTAL 1.8 mg/dL (0.2-1.0); CALCIUM 9.2 mg/dL (8.5-10.1); CO2 24 mmol/L (21-32); CREATININE 0.8 mg/dL (0.7-1.3); GLUCOSE,RANDOM 97 mg/dL (74-106); SGOT/AST 14 U/L (15-37); SGPT/ALT 20 U/L (12-78); TOT PROT 6.5 g/dl (6.4-8.2)
[2017-04-25 15:04] LABS: ALK PHOS 57 U/L (45-117)
[2017-04-25 16:26] LABS: MCH 26.5 pg (25.7-33.7); MCHC 29.7 g/dl (32.0-35.9); MEAN PLT VOLUME 11.1 fl (7.5-11.1); PLATELET COUNT 608 K/MM3 (134-434); RDW 32.6 % (11.9-15.9); WHITE BLOOD COUNT 20.9 K/mm3 (4.0-10.0)
[2017-04-25 17:42] LABS: PLATELET ESTIMATE MOD INCREASED (NORMAL)
[2017-04-25 17:43] LABS: ANISOCYTOSIS 3+; MACROCYTOSIS 1+; OVALOCYTE 1+; POIKILOCYTOSIS 2+; POLYCHROMASIA 1+; TEAR DROP CELLS 1+
[2017-04-25] MEDS ORDERED: FUROSEMIDE 40 MG/4 ML INJECTABLE VIAL ONE (20:15)
[2017-04-26 01:36] LABS: MCH 27.1 pg (25.7-33.7); MEAN CELL VOLUME 87.3 fl (80-96); PLATELET COUNT 580 K/MM3 (134-434); RDW 24.8 % (11.9-15.9); WHITE BLOOD COUNT 21.1 K/mm3 (4.0-10.0)
[2017-04-26 07:34] LABS: MCH 27.5 pg (25.7-33.7); MCHC 31.5 g/dl (32.0-35.9); MEAN CELL VOLUME 87.3 fl (80-96); MEAN PLT VOLUME 9.8 fl (7.5-11.1); PLATELET COUNT 495 K/MM3 (134-434); RDW 25.5 % (11.9-15.9); WHITE BLOOD COUNT 24.1 K/mm3 (4.0-10.0)
[2017-04-26 08:49] LABS: PLATELET ESTIMATE INCREASED (NORMAL)
[2017-04-26 08:50] LABS: ANISOCYTOSIS 3+; HYPOCHROMIA 2+; MICROCYTOSIS 1+; NUCLEATED RED BLOOD CELL 1 % (0-0); TOTAL CELLS COUNTED 100
--- NOTE | 2017-04-26 11:24 | PN ---
Progress Note (short form) - Note Progress Note: CBC reviewed One more unit of prbc ordered Pt agreed he denies any complains. discharge after one unit PRBC.
[2017-04-26 11:27] VITALS: BP 127/64; PULSE 92; TEMP 97.9
== END 2017-04-26 14:57 | disposition home or self-care (01) ==
LOC: JBLOOD 13:30 → J7W 13:31 → JBLOOD 04-26 14:57
PROVIDERS: ATTEND Internal Medicine Hematology & Oncology
PROC: 30233N1 Transfusion of Nonautologous Red Blood Cells into Peripheral Vein, Percutaneous Approach (ICD-10-PCS; principal; 2017-04-25)
DX: D46.9 Myelodysplastic syndrome, unspecified (principal)
CPT/HCPCS: 36415; 36430; 80053; 85025; 85027; 86850; 86900; 86901; 86922; P9038; P9058

== ENCOUNTER 2017-07-19 07:33 | Day surgery (SDC) | payer OTHER, BC ==
[2017-07-19 08:41] LABS: MCH 26.8 pg (25.7-33.7); MCHC 31.5 g/dl (32.0-35.9); MEAN CELL VOLUME 85.1 fl (80-96); MEAN PLT VOLUME 10.4 fl (7.5-11.1); PLATELET COUNT 470 K/MM3 (134-434); RDW 27.1 % (11.9-15.9); WHITE BLOOD COUNT 17.3 K/mm3 (4.0-10.0)
[2017-07-19 09:14] LABS: ALBUMIN 4.1 g/dl (3.4-5.0); ANION GAP 8 (8-16); BILIRUBIN,TOTAL 1.7 mg/dL (0.2-1.0); CALCIUM 8.7 mg/dL (8.5-10.1); CO2 25 mmol/L (21-32); CREATININE 0.7 mg/dL (0.7-1.3); GLUCOSE,RANDOM 91 mg/dL (74-106); SGOT/AST 10 U/L (15-37); SGPT/ALT 17 U/L (12-78); TOT PROT 6.3 g/dl (6.4-8.2)
[2017-07-19 09:15] LABS: ALK PHOS 68 U/L (45-117)
[2017-07-19] MEDS ORDERED: FUROSEMIDE 40 MG/4 ML INJECTABLE VIAL IVPUSH ONE (16:00)
--- NOTE | 2017-07-19 16:22 | HP ---
Satellite [facility] - Chief Complaint Chief Complaint: here for prbc History Source: Patient, Medical Record - Past Medical History Allergies/Adverse Reactions: Allergies Allergy/AdvReac Type Severity Reaction Status Date / Time No Known Allergies Allergy Verified 01/07/17 10:51 Cardiovascular: Yes: HTN Pulmonary: Yes: COPD Heme/Onc: Yes: Myeloproliferative Synd, Other (MDS) - Current Medications Current Medications: Home Medications Medication Instructions Recorded Tamsulosin HCl 0.4 mg PO DAILY 08/31/12 Anagrelide HCl [Agrylin -] 1 mg PO BID 04/11/14 Aspirin [ASA -] 81 mg PO DAILY 04/11/14 Deferasirox [Jadenu] 720 mg OD DAILY 07/12/16 Sotalol HCl [Betapace -] 80 mg PO BID@0800,2000 #60 tablet 07/14/16 Omeprazole 20 mg PO DAILY 08/17/16 Prednisone 10 mg PO BID 08/17/16 Atovaquone 1,500 mg PO DAILY 10/17/16 Amlodipine Besylate [Norvasc -] 5 mg PO DAILY 02/28/17 Gabapentin 300 mg PO BID 04/25/17 Satellite Physical Exam - Physical Examination Vital Signs: Vital Signs Period Temp Pulse Resp BP Sys/Paredes Pulse Ox Last 24 Hr 97.8 F-97.8 F 64-64 18-20 96-96/52-52 General Appearance: Well Nourished, Well Developed, Alert & Oriented x3 Heart: Regular rate & rhythm Abdomen: Soft Extremities: No edema Neurological: Alert, Oriented Satellite Impression/Plan - Impression/Plan Impression: for 2U PRBC. Followed by raheem
[2017-07-19] MEDS ORDERED: PORTA CATH FLUSH 10 ML IVPUSH ONE (16:53)
[2017-07-19 20:34] VITALS: BP 142/73; PULSE 87; TEMP 98.4
== END 2017-07-19 20:20 | disposition home or self-care (01) ==
LOC: JONCBLOOD 07:33 → J7W 08:18 → JONCBLOOD 20:20
PROVIDERS: ATTEND Internal Medicine Hematology & Oncology
PROC: 30233N1 Transfusion of Nonautologous Red Blood Cells into Peripheral Vein, Percutaneous Approach (ICD-10-PCS; principal; 2017-07-19)
DX: D46.9 Myelodysplastic syndrome, unspecified (principal)
CPT/HCPCS: 36415; 36430; 36511; 80053; 85027; 86850; 86900; 86901; 86922; P9038; P9058

== ENCOUNTER 2017-08-10 10:14 | Inpatient (IN) | payer OTHER, BC ==
[2017-08-10 11:10] LABS: HEMATOCRIT 21.5 % (35.4-49); MCH 25.7 pg (25.7-33.7); MCHC 29.8 g/dl (32.0-35.9); MEAN CELL VOLUME 86.2 fl (80-96); PLATELET COUNT 472 K/MM3 (134-434); RBC 2.49 M/mm3 (4.00-5.60); RDW 25.4 % (11.9-15.9); WHITE BLOOD COUNT 25.6 K/mm3 (4.0-10.0)
[2017-08-10 11:16] LABS: HEMOGLOBIN 6.4 GM/dL (11.7-16.9)
[2017-08-10 11:30] LABS: ALBUMIN 3.9 g/dl (3.4-5.0); ALK PHOS 70 U/L (45-117); ANION GAP 7 (8-16); BILIRUBIN,DIRECT 0.3 mg/dL (0.0-0.2); BILIRUBIN,TOTAL 1.4 mg/dL (0.2-1.0); BLOOD UREA NITROGEN 13 mg/dL (7-18); CALCIUM 9.1 mg/dL (8.5-10.1); CHLORIDE 107 mmol/L (98-107); CO2 28 mmol/L (21-32); CREATININE 0.8 mg/dL (0.7-1.3); GLUCOSE,RANDOM 115 mg/dL (74-106); POTASSIUM 4.5 mmol/L (3.5-5.1); SGOT/AST 11 U/L (15-37); SGPT/ALT 13 U/L (12-78); SODIUM 142 mmol/L (136-145); TOT PROT 6.4 g/dl (6.4-8.2)
[2017-08-10 11:31] LABS: BILIRUBIN,TOTAL 1.5 mg/dL (0.2-1.0); TOT PROT 6.5 g/dl (6.4-8.2)
[2017-08-10 13:30] LABS: ANISOCYTOSIS 1+; TARGET CELLS 1+
[2017-08-10] MEDS ORDERED: FUROSEMIDE 40 MG/4 ML INJECTABLE VIAL IVPUSH ONE ×2 (13:30→18:00)
[2017-08-10 13:31] LABS: OVALOCYTE 1+
--- NOTE | 2017-08-10 23:27 | HP ---
Satellite H - Chief Complaint Chief Complaint: Here for elective blood transfusion. Denies fever/chills/cough /SOB/abdominal pain/nausea/vomiting/diarrhea. ++ low back pain. HAd disk herniation in the past. Hsving difficulty ambulating History Source: Patient Limitations to Obtaining History: No Limitations - Past Medical History Allergies/Adverse Reactions: Allergies Allergy/AdvReac Type Severity Reaction Status Date / Time No Known Allergies Allergy Verified 01/07/17 10:51 Cardiovascular: Yes: HTN Pulmonary: Yes: COPD Heme/Onc: Yes: Myeloproliferative Synd, Other (MDS) - Current Medications Current Medications: Home Medications Medication Instructions Recorded Tamsulosin HCl 0.4 mg PO DAILY 08/31/12 Anagrelide HCl [Agrylin -] 1 mg PO BID 04/11/14 Aspirin [ASA -] 81 mg PO DAILY 04/11/14 Deferasirox [Jadenu] 720 mg OD DAILY 07/12/16 Sotalol HCl [Betapace -] 80 mg PO BID@0800,2000 #60 tablet 07/14/16 Omeprazole 20 mg PO DAILY 08/17/16 Prednisone 5 mg PO DAILY 08/17/16 Atovaquone 1,500 mg PO DAILY 10/17/16 Amlodipine Besylate [Norvasc -] 5 mg PO DAILY 02/28/17 Gabapentin 300 mg PO BID 04/25/17 Satellite Physical Exam - Physical Examination Vital Signs: Vital Signs Period Temp Pulse Resp BP Sys/Paredes Pulse Ox Last 24 Hr 97.7 F-98.8 F 83-89 18-18 108-145/55-65 General Appearance: Well Developed, Alert & Oriented x3 Lung: Clear to auscultation, Normal air movement Heart: Regular rate & rhythm, Normal S1, Normal S2 Abdomen: Soft, No tenderness, Normal bowel sounds Extremities: No edema Neurological: Intact Satellite Impression/Plan - Impression/Plan Impression: 72 y/o patient with myeloproliferative disorder. Here for elective blood transfusion. low back pain --check CT LS spine. check neuro consult. physical therapy
--- NOTE | 2017-08-11 09:50 | CONSULT ---
Consult - text type - Consultation Consultation Note: Neurology History of Present Illness The patient is a 71 year old male with a significant past medical history of myeloproliferative disorder and hypertension, who is admitted for transfusion but reports acute on chronic low back. States he was movign some furniture several days ago and felt a pop and since has been having worsened low back pain. He did have an MRI L spine from 03/2017 which I reviewed and has multilevel disc degeneration and hernation with nerve root compression and neural foramna stenosis. Has been taking fátima 600mg twice daily with some relief but still with discomfort. Past History - Past Medical History Anemia: Yes Asthma: No Cancer: Yes (Blood (MDS)) Cardiac Disorders: Yes CVA: No COPD: No CHF: No Dementia: No Diabetes: No GI Disorders: No Disorders: No HTN: Yes Hypercholesterolemia: No Liver Disease: No Seizures: No Thyroid Disease: No - Surgical History Abdominal Surgery: Yes (RT INGUINAL HERNIA) Appendectomy: No Cardiac Surgery: No Cholecystectomy: No Lung Surgery: No Neurologic Surgery: No Orthopedic Surgery: No - Psycho/Social/Smoking Cessation Hx Suicidal Ideation: No Smoking Status: Yes Smoking History: Former smoker Have you smoked in the past 12 months: No Number of Cigarettes Smoked Daily: 0 If you are a former smoker, when did you quit?: 1 YR Information on smoking cessation initiated: No 'Breaking Loose' booklet given: 08/17/16 Hx Alcohol Use: No Drug/Substance Use Hx: No Substance Use Type: None Hx Substance Use Treatment: No - Past Medical History Allergies/Adverse Reactions: Allergies Allergy/AdvReac Type Severity Reaction Status Date / Time No Known Allergies Allergy Verified 01/07/17 10:51 Home Medication List Medication Instructions Recorded Confirmed Type Tamsulosin HCl 0.4 mg PO DAILY 08/31/12 07/19/17 History Anagrelide HCl [Agrylin -] 1 mg PO BID 04/11/14 07/19/17 History Aspirin [ASA -] 81 mg PO DAILY 04/11/14 07/19/17 History Deferasirox [Jadenu] 720 mg OD DAILY 07/12/16 07/19/17 History Omeprazole 20 mg PO DAILY 08/17/16 07/19/17 History Prednisone 5 mg PO DAILY 08/17/16 07/19/17 History Atovaquone 1,500 mg PO DAILY 10/17/16 07/19/17 History Amlodipine Besylate [Norvasc -] 5 mg PO DAILY 02/28/17 07/19/17 History Gabapentin 300 mg PO BID 04/25/17 07/19/17 History Review of Systems GENERAL/CONSTITUTIONAL: No fever or chills. No weakness. HEAD, EYES, EARS, NOSE AND THROAT: No change in vision. No ear pain or discharge. No sore throat. CARDIOVASCULAR: No chest pain or shortness of breath. RESPIRATORY: No cough, wheezing, or hemoptysis. GASTROINTESTINAL: No nausea, vomiting, diarrhea or constipation. GENITOURINARY: No dysuria, frequency, or change in urination. MUSCULOSKELETAL: (+) left hip swelling and associated pain. No neck or back pain. SKIN: No rash NEUROLOGIC: No headache, vertigo, loss of consciousness, or change in strength/ sensation. ENDOCRINE: No increased thirst. No abnormal weight change. HEMATOLOGIC/LYMPHATIC: No anemia, easy bleeding, or history of blood clots. ALLERGIC/IMMUNOLOGIC: No hives or skin allergy. *Physical Exam Vital Signs Period Temp Pulse Resp BP Sys/Paredes Pulse Ox Last 24 Hr 97.7 F-98.8 F 79-89 18-20 108-145/55-65 GENERAL: Awake, alert, and fully oriented, in no acute distress HEAD: No signs of trauma EYES: PERRLA, EOMI, sclera anicteric, conjunctiva clear ENT: Auricles normal inspection, hearing grossly normal, nares patent, oropharynx clear without exudates. Moist mucosa NECK: Normal ROM, supple, no lymphadenopathy, JVD, or masses LUNGS: Breath sounds equal, clear to auscultation bilaterally. No wheezes, and no crackles HEART: Regular rate and rhythm, normal S1 and S2, no murmurs, rubs or gallops ABDOMEN: Soft, nontender, normoactive bowel sounds. No guarding, no rebound. No masses EXTREMITIES: L hip slightly decreased forward flexion due to pain. +Tenderness to L hip and iliac crest. Remainder of extremities with normal range of motion, no edema. No clubbing or cyanosis. No cords, erythema, or tenderness NEUROLOGICAL: Cranial nerves II through XII grossly intact. Normal speech. Strenght grossly 5-/5 in LE, pain limited, gait deferred SKIN: Warm, Dry, normal turgor, no rashes or lesions noted. MRI L spine reviewed Plan: 71 year old male with a significant past medical history of myeloproliferative disorder and hypertension, who is admitted for transfusion but reports acute on chronic low back. States he was movign some furniture several days ago and felt a pop and since has been having worsened low back pain. He did have an MRI L spine from 03/2017 which I reviewed and has multilevel disc degeneration and hernation with nerve root compression and neural foramna stenosis. Has been taking fátima 600mg twice daily with some relief but still with discomfort. Will add muscle relaxant and will increase fátima to 600mg three times a day. Phyiscial therapy order. Consider pain mgmt consult for further pain mgmt. Awaiting L spine CT result.
[2017-08-11] MEDS: CYCLOBENZAPRINE HCL 10 MG TABLET (FP) PO SCH ×2 (11:04→22:23)
[2017-08-11 12:00] LABS: EOS % 0.9 % (0-4.5); HEMATOCRIT 25.6 % (35.4-49); HEMOGLOBIN 7.9 GM/dL (11.7-16.9); LYMPH % 8.1 % (8-40); MCH 26.5 pg (25.7-33.7); MEAN CELL VOLUME 85.6 fl (80-96); MEAN PLT VOLUME 10.8 fl (7.5-11.1); MONO % 3.4 % (3.8-10.2); NEUT % 83.6 % (42.8-82.8); PLATELET COUNT 389 K/MM3 (134-434); RBC 2.99 M/mm3 (4.00-5.60); RDW 20.2 % (11.9-15.9); WHITE BLOOD COUNT 19.1 K/mm3 (4.0-10.0)
--- NOTE | 2017-08-11 14:12 | CONSULT ---
Consult Consult Specialty:: Pain Management Reason for Consultation:: Back pain - History of Present Illness Chief Complaint: Back pain History of Present Illness: 72 yr male with h/o LBP s/p moving the furniture at home. Gupta 9/10 mostly localized but also feels pain in legs , no numbness and tingling. no bowel/bladder issues. he was admitted for blood transfusion for MDS. - Past Medical History Cardio/Vascular: Yes: HTN Pulmonary: Yes: COPD Heme/Onc: Yes: Myeloproliferative Synd - Past Surgical History Past Surgical History: Yes: Hernia Repair - Alcohol/Substance Use Hx Alcohol Use: No - Smoking History Smoking history: Never smoked Have you smoked in the past 12 months: No Aproximately how many cigarettes per day: 0 If you are a former smoker, when did you quit?: 1 YR - Social History Usual Living Arrangement: Alone Home Medications - Allergies Allergies/Adverse Reactions: Allergies Allergy/AdvReac Type Severity Reaction Status Date / Time No Known Allergies Allergy Verified 01/07/17 10:51 - Home Medications Home Medications: Ambulatory Orders Tamsulosin HCl 0.4 mg PO DAILY 08/31/12 Anagrelide HCl [Agrylin -] 1 mg PO BID 04/11/14 Aspirin [ASA -] 81 mg PO DAILY 04/11/14 Deferasirox [Jadenu] 720 mg OD DAILY 07/12/16 Sotalol HCl [Betapace -] 80 mg PO BID@0800,2000 #60 tablet 07/14/16 Omeprazole 20 mg PO DAILY 08/17/16 Prednisone 5 mg PO DAILY 08/17/16 Atovaquone 1,500 mg PO DAILY 10/17/16 Amlodipine Besylate [Norvasc -] 5 mg PO DAILY 02/28/17 Gabapentin 300 mg PO BID 04/25/17 Review of Systems - Review of Systems Constitutional: reports: No Symptoms Eyes: reports: No Symptoms HENT: reports: No Symptoms Neck: reports: No Symptoms Respiratory: reports: No Symptoms Gastrointestinal: reports: No Symptoms Genitourinary: reports: No Symptoms, Other (BPH) Musculoskeletal: reports: Back Pain Neurological: reports: No Symptoms Psychiatric: reports: No Symptoms Pain Intensity: 9 Physical Exam Vital Signs: Vital Signs Temperature 98.5 F 08/11/17 06:28 Pulse Rate 79 08/11/17 06:28 Respiratory Rate 20 08/11/17 06:28 Blood Pressure 140/65 08/11/17 06:28 O2 Sat by Pulse Oximetry (%) Constitutional: Yes: Well Nourished, No Distress Eyes: Yes: WNL HENT: Yes: WNL Neck: Yes: WNL Respiratory: Yes: WNL Gastrointestinal: Yes: WNL Musculoskeletal: Yes: Back Pain, Other (Tenderness + Paraspinal muscles spasm) Extremities: Yes: WNL Edema: No Neurological: Yes: WNL ...Motor Strength: WNL Labs: CBC, BMP 08/11/17 11:30 08/10/17 10:43 Imaging - Results Cat Scan: Report Reviewed Problem List - Problems (1) Compression fracture of L1 lumbar vertebra Code(s): S32.010A - WEDGE COMPRESSION FRACTURE OF FIRST LUMBAR VERTEBRA, INIT Qualifiers: Encounter type: initial encounter Fracture type: closed Qualified Code(s) : S32.010A - Wedge compression fracture of first lumbar vertebra, initial encounter for closed fracture Assessment/Plan Discussed in details and answered all the questions. 1. continue current care 1. Consult with Spine Surgeon 3. Physical therapy 4. He may need Back Brace after Spine surgeon evaluation and Physical therapy eval. 5. Percocet 5/325 po q6 PRN . Please call me at [phone] if no improvement. Thanks Dr. Mccabe
[2017-08-11] MEDS ORDERED: DOCUSATE SODIUM 100 MG CAPSULE (FP) PO PRN (14:17)
[2017-08-11] MEDS: GABAPENTIN 300 MG CAPSULE (FP) PO SCH ×2 (16:38→22:23)
[2017-08-11] MEDS: oxyCODONE HCL 5 MG TABLET PO PRN (20:07)
--- NOTE | 2017-08-12 01:54 | PN ---
Progress Note (short form) - Note Progress Note: Patient seen and examined 08/11/17 c/o back pain' aFVSS HEENT: VIVIAN, EOM Intact Oropharynx: No thrush, No mucositis Neck: Supple Cor: RSR, No murmurs, No gallops Lungs: Clear to P&A Abd: Soft, Normal bowel sounds, No organomegaly Ext:No significant edema Abnormal Lab Results 08/11/17 11:30 WBC 19.1 H RBC 2.99 L D Hgb 7.9 L D Hct 25.6 L D MCHC 31.0 L RDW 20.2 H D Neutrophils % 83.6 H Monocytes % 3.4 L Basophils % 4.0 H Home Medication List Medication Instructions Recorded Confirmed Type Tamsulosin HCl 0.4 mg PO DAILY 08/31/12 08/11/17 History Anagrelide HCl [Agrylin -] 1 mg PO BID 04/11/14 08/11/17 History Aspirin [ASA -] 81 mg PO DAILY 04/11/14 08/11/17 History Deferasirox [Jadenu] 720 mg OD DAILY 07/12/16 08/11/17 History Omeprazole 20 mg PO DAILY 08/17/16 08/11/17 History Prednisone 5 mg PO DAILY 08/17/16 08/11/17 History Atovaquone 1,500 mg PO DAILY 10/17/16 08/11/17 History Amlodipine Besylate [Norvasc -] 5 mg PO DAILY 02/28/17 08/11/17 History Gabapentin 600 mg PO BID 04/25/17 08/11/17 History Active Medications Generic Name Dose Route Start Last Admin Trade Name Freq PRN Reason Stop Dose Admin Amlodipine Besylate 5 mg 08/12/17 10:00 Norvasc - PO DAILY ABBY Anagrelide HCl 1 mg 08/12/17 10:00 Agrylin PO BID ABBY Aspirin 81 mg 08/12/17 10:00 Asa - PO DAILY ABBY Atovaquone 1,500 mg 08/12/17 08:00 Mepron - PO DAILY@0800 ABBY Cyclobenzaprine HCl 10 mg 08/11/17 10:00 08/11/17 22:23 Flexeril - PO 10 mg BID ABBY Administration Docusate Sodium 100 mg 08/11/17 14:17 Colace - PO Q8H PRN CONSTIPATION Gabapentin 600 mg 08/11/17 14:00 08/12/17 05:20 Neurontin - PO 600 mg TID ABBY Administration Non-Formulary Medication 1 each 08/12/17 10:00 Patient's Own Med PO DAILY ABBY Oxycodone HCl 5 mg 08/11/17 14:17 08/12/17 05:21 Roxicodone - PO 5 mg Q6H PRN Administration PAIN Prednisone 5 mg 08/12/17 10:00 Deltasone - PO DAILY [facility] Senna 2 tab 08/12/17 07:42 Senna - PO HS PRN CONSTIPATION Sotalol HCl 80 mg 08/12/17 10:00 Betapace - PO BID [facility] Tamsulosin HCl 0.4 mg 08/12/17 08:30 Flomax - PO DAILY@0830 ABBY A/P 72 y/o patient with myeloproliferative disorder, on anagrelide Here for transfusions also noted to have back pain-- CT L spine shows L1 vertebral compression fx will get neuro/neurosurgery consults pain control physical therapy
[2017-08-12] MEDS: GABAPENTIN 300 MG CAPSULE (FP) PO SCH ×3 (05:20→22:13)
[2017-08-12] MEDS: oxyCODONE HCL 5 MG TABLET PO PRN ×2 (05:21→19:21)
[2017-08-12] MEDS ORDERED: SENNOSIDES 8.6MG TABLET (FP) PO PRN (07:42)
[2017-08-12] MEDS: TAMSULOSIN HCL 0.4 MG CAP.ER.24H (FP) PO SCH (08:40)
[2017-08-12] MEDS: SOTALOL HCL 80 MG TABLET (FP) PO SCH ×2 (10:00→22:13)
[2017-08-12] MEDS: ASPIRIN 81 MG CHEWABLE TABLETS PO SCH (10:00)
[2017-08-12] MEDS: amLODIPine BESYLATE 5 MG TABLET (FP) PO SCH (10:01)
[2017-08-12] MEDS: predniSONE 5 MG TABLET (UD) PO SCH (10:01)
[2017-08-12] MEDS: ANAGRELIDE HCL 1 MG PO SCH ×2 (11:09→22:13)
--- NOTE | 2017-08-12 11:17 | PN ---
Progress Note (short form) - Note Progress Note: NEUROSURGERY CONSULT DICTATED Chart reviewed History obtained MRI/CT reviewed h/o myeloproliferative disorder and hypertension reports acute on chronic low back. Moving furniture several days ago and felt a pop with worsening low back pain. MRI earlier in the year only demonstrated DDD. EMG last year reportedly showed "nerve problem" R foot PE: AF, VSS HEENT- NC/AT; Neck- supple; Cor- RR; Lungs- CTA; Abd- benign; Ext- old R ankle fx, no sign of DVT CN- intact; Motor- 4+-5 B UE/LE; Sensation- mildly decreased distal vibration distal B LE; DTR- hyporeflexic; Back- mild tenderness waist to waist WBC 19.1, HGB 7.9, Hct 25.6; BUN/Cr 13/0.8 MRI LS spine (): multilevel DDD, facet hypertrophy, ligamentum hypertrophy , mild foramenal narrowing at multiple levels; R L3-4 paracentral disc pritrusion/extrusion with mild thecal sac impingement and prox foramenal narrowing; L5-S1 disc bulge with facet hypetrophy B L5-S1 foramenal stenosis R > L LS CT- L1 burst fx with 50% vertebral column height reduction, 20 % anterior canal impingement Oteoporotic L1 burst fracture R L3-4 paracentral HNP and L5-S1 disc bulge and foramenal stenosis Neurosurgical intervention not recommended as pt has no significant deficits Recommend TLSO brace x 3 months when OOB If persistent pain consider vertebroplasty (not a good candidate for kyphoplastic as posterior cortex is breached) with time Observed for worsening pain, strength, sensation, B/B dysfunction, though most burst fractures when not associated with neurological deficit initially generally heal and remodel with time
--- NOTE | 2017-08-12 11:24 | CON.CARD ---
Cardiology Consult (text) - Consultation Consultation Note: covering for Dr Childs - History of Present Illness Chief Complaint: admitted for elective blood transfusion History of Present Illness: 72 m hx of anemia, MDS/MPD , pafib, sent to ER for elective prbcs. Pt has no cp , sob, palps, dizzy, loc, pnd, orthopnea, le edema. Cardio consulted due to need for anagralide which can cause long qt. - History Source History Provided By: Patient, Medical Record Limitations to Obtaining History: No Limitations - Past Medical History Cardio/Vascular: Yes: HTN Pulmonary: Yes: COPD Heme/Onc: Yes: Myeloproliferative Synd, Other (MDS) - Past Surgical History Past Surgical History: Yes: Hernia Repair - Alcohol/Substance Use Hx Alcohol Use: No - Smoking History Smoking history: Former smoker Home Medications - Allergies Allergies/Adverse Reactions: Allergies Allergy/AdvReac Type Severity Reaction Status Date / Time No Known Allergies Allergy Verified 01/07/17 10:51 - Home Medications Home Medications: Tamsulosin HCl 0.4 mg PO DAILY 08/31/12 Anagrelide HCl [Agrylin -] 1 mg PO BID 04/11/14 Aspirin [ASA -] 81 mg PO DAILY 04/11/14 Deferasirox [Jadenu] 720 mg OD DAILY 07/12/16 Sotalol HCl [Betapace -] 80 mg PO BID@0800,2000 #60 tablet 07/14/16 Omeprazole 20 mg PO DAILY 08/17/16 Prednisone 5 mg PO DAILY 08/17/16 Atovaquone 1,500 mg PO DAILY 10/17/16 Amlodipine Besylate [Norvasc -] 5 mg PO DAILY 02/28/17 Gabapentin 600 mg PO BID 04/25/17 Review of Systems - Review of Systems Constitutional: denies: Chills, Fever Cardiovascular: denies: Chest Pain, Shortness of Breath Respiratory: denies: Cough, Hemoptysis, Orthopnea, PND, SOB, SOB on Exertion Gastrointestinal: denies: Abdominal Pain, Constipation, Melena, Rectal Bleeding Genitourinary: denies: Dysuria Musculoskeletal: denies: Joint Pain Neurological: denies: Dizziness, Headache, Seizure, Syncope Vital Signs: Vital Signs Period Temp Pulse Resp BP Sys/Paredes Pulse Ox Last 24 Hr 97.9 F-98.3 F 76-84 18-18 125-140/56-63 Neck: Yes: Supple Respiratory: Yes: CTA Bilaterally Gastrointestinal: Yes: Normal Bowel Sounds, Soft. No: Tenderness Cardiovascular: Yes: Pulse Irregular JVD: No Carotid Bruit: No PMI: Non-Displaced Heart Sounds: Yes: S1, S2. No: Gallop Murmur: No: Systolic Murmur Edema: No no jaundice diaphoresis - Other Data Labs, Other Data: Laboratory Last Values WBC 19.1 K/mm3 (4.0-10.0) H 08/11/17 11:30 RBC 2.99 M/mm3 (4.00-5.60) L D 08/11/17 11:30 Hgb 7.9 GM/dL (11.7-16.9) L D 08/11/17 11:30 Hct 25.6 % (35.4-49) L D 08/11/17 11:30 MCV 85.6 fl (80-96) 08/11/17 11:30 MCH 26.5 pg (25.7-33.7) 08/11/17 11:30 MCHC 31.0 g/dl (32.0-35.9) L 08/11/17 11:30 RDW 20.2 % (11.9-15.9) H D 08/11/17 11:30 Plt Count 389 K/MM3 (134-434) 08/11/17 11:30 MPV 10.8 fl (7.5-11.1) 08/11/17 11:30 Total Counted 100 08/10/17 10:43 Neutrophils % 83.6 % (42.8-82.8) H 08/11/17 11:30 Neutrophils % (Manual) 78.0 % (42.8-82.8) 08/10/17 10:43 Band Neutrophils % 11.0 % 08/10/17 10:43 Lymphocytes % 8.1 % (8-40) 08/11/17 11:30 Lymphocytes % (Manual) 7.0 % (8-40) L D 08/10/17 10:43 Monocytes % 3.4 % (3.8-10.2) L 08/11/17 11:30 Monocytes % (Manual) 2 % (3.8-10.2) L D 08/10/17 10:43 Eosinophils % 0.9 % (0-4.5) 08/11/17 11:30 Basophils % 4.0 % (0-2.0) H 08/11/17 11:30 Basophils % (Manual) 2.0 % (0-2.0) 08/10/17 10:43 Nucleated RBC % 2 % (0-0) H 08/10/17 10:43 Hypochromia 1+ 08/10/17 10:43 Anisocytosis 1+ 08/10/17 10:43 Target Cells 1+ 08/10/17 10:43 Ovalocytes 1+ 08/10/17 10:43 Sodium 142 mmol/L (136-145) 08/10/17 10:43 Potassium 4.5 mmol/L (3.5-5.1) 08/10/17 10:43 Chloride 107 mmol/L (98-107) 08/10/17 10:43 Carbon Dioxide 28 mmol/L (21-32) 08/10/17 10:43 Anion Gap 7 (8-16) L 08/10/17 10:43 BUN 13 mg/dL (7-18) 08/10/17 10:43 Creatinine 0.8 mg/dL (0.7-1.3) 08/10/17 10:43 Creat Clearance w eGFR > 60 (>60) 08/10/17 10:43 Random Glucose 115 mg/dL (74-106) H 08/10/17 10:43 Calcium 9.1 mg/dL (8.5-10.1) 08/10/17 10:43 Total Bilirubin 1.5 mg/dL (0.2-1.0) H 08/10/17 10:43 Direct Bilirubin 0.3 mg/dL (0.0-0.2) H 08/10/17 10:43 AST 10 U/L (15-37) L 08/10/17 10:43 ALT 13 U/L (12-78) 08/10/17 10:43 Alkaline Phosphatase 71 U/L (45-117) 08/10/17 10:43 Total Protein 6.5 g/dl (6.4-8.2) 08/10/17 10:43 Albumin 4.0 g/dl (3.4-5.0) 08/10/17 10:43 Blood Type B POSITIVE 01/04/18 10:43 Antibody Screen Negative 08/10/17 10:43 Crossmatch See Detail 08/10/17 10:43 echo 07/2016: nl lv/rv, mod arnulfo, mod mr, mod-sev tr, rvsp 50-60 a/p: 72 m hx of anemia, MDS/MPD , pafib, sent to ER for elective prbcs. mds, anemia: -prbcs per Heme pafb: -maintained on sotalol at home, rate controlled, cont same -not on ac 2/2 severe anemia from MDS, cont asa as has been doing -pt requires anagralide for mds which can prolong qtc, as well as sotalol -would check ecg here to see qtc. If stable/nl then can continue these meds with periodic monitoring of ecg
[2017-08-12] MEDS: JADENU 360 MG PO SCH (12:37)
[2017-08-12] MEDS: ATOVAQUONE 750 MG/5 ML (UNIT-DOSE PACKAGING) PO SCH (12:38)
--- NOTE | 2017-08-12 13:22 | EKG ---
Test Reason : Blood Pressure : / mmHG Vent. Rate : 082 BPM Atrial Rate : 082 BPM P-R Int : 182 ms QRS Dur : 084 ms QT Int : 380 ms P-R-T Axes : 059 008 044 degrees QTc Int : 443 ms SINUS RHYTHM WITH PREMATURE ATRIAL COMPLEXES OTHERWISE NORMAL ECG WHEN COMPARED WITH ECG OF 20-FEB-2017 08:22, PREMATURE ATRIAL COMPLEXES ARE NOW PRESENT Confirmed by MORIAH DICKENS MD ([id number]) on 08/12/2017 1:21:52 PM Referred By: Darlene HERNANDEZ Confirmed By:MORIAH DICKENS MD
--- NOTE | 2017-08-12 13:42 | CONS ---
DATE OF CONSULTATION: 08/12/2017 REQUESTING PHYSICIAN: Yashira Mendoza MD CLINICAL TRIAL ASSOCIATE: Chance Escobar MD, Neurosurgery. CHIEF COMPLAINT: L1 burst fracture. HISTORY OF PRESENT ILLNESS: The patient is a 72-year-old, right-handed male with a history of myeloproliferative disorder and anemia, who was lifting a nightstand at the bedside about 5 days ago and felt increasing mid-back pain. He had previously experienced lower back pain. He had a couple MRI in the last couple years, which only demonstrated degenerative disk disease. After the onset of acute lower back pain and hearing a pop in his back, the pain has persisted. He has been taking gabapentin and oxycodone which helps his pain somewhat. He denies bowel or bladder incontinence. Pain is worse with straining. He has no leg weakness or tingling even though he does have intermittent numbness. He reportedly had an EMG done last year, which demonstrated some abnormality in the right foot area. PAST MEDICAL HISTORY: Significant for hypertension, COPD, myeloproliferative disorder, lumbar degenerative disk disease, hypercholesterolemia. MEDICATIONS ON ADMISSION: Included Flomax, Agrylin, baby aspirin, Jadenu, Betapace, omeprazole, prednisone, Norvasc, gabapentin, atovaquone. ALLERGIES: There is no known drug allergy. FAMILY HISTORY: Noncontributory. SOCIAL HISTORY: He does not smoke or drink. He lives at home. REVIEW OF SYSTEMS: Otherwise negative for other major cardiovascular, pulmonary , gastrointestinal, genitourinary, endocrinological, neurological, or psychological problem except for the above. PHYSICAL EXAMINATION: Vital Signs: Temperature is 98.3, blood pressure is 140/63 with pulse rate of 76. HEENT: Examination shows him to be normocephalic, atraumatic, anicteric. Neck: Supple with no carotid bruit. Coronary: Examination demonstrated a regular rhythm. Lungs: Clear to auscultation bilaterally. Abdomen: Benign. Extremities: Examination showed no signs of DVT. He has a chronic old right ankle fracture. Neurologic: He is awake and alert and oriented x4. Cranial nerve examination is intact 2-12. Motor examination shows 4+ to 5/5 strength in the bilateral upper and lower extremities without fasciculation or atrophy. Sensory examination is intact to light touch. He does have decreased distal lower extremity vibratory sensation. Deep tendon reflexes are hyporeflexic throughout. There is no pathologic long tract sign. Back: Examination of his back shows tenderness along the waist line and just above, that is slightly different from the prior lower back pain that he experienced which is generally lower. Gait is not tested for safety reasons. LABORATORY: Examination shows a white blood cell count of 19, hemoglobin 7.9, and platelet count is 389,000. Serum sodium is 142, and potassium is 4.5. BUN is 13 and creatinine 0.8 respectively. LFTs are normal except for increasing bilirubin at 1.5. MRI examination of the lumbar spine from March 2017 demonstrated multi-level degenerative disk disease with broad-base disk bulge and right-sided, small extruded disk at L3-4 with thecal sac impingement. There is right L3-4 foraminal narrowing. There is L5-S1 broad-based disk bulge and facet hypertrophy resulting in [id number]-[id number]-left L5-S1 foraminal stenosis. Facet hypertrophy is noted at multiple levels. Lumbar lordosis is maintained. The L3-4 right-sided paracentral disk protrusion/extrusion is slightly more pronounced than in prior MRI from 2013. CT scan of the lumbar spine demonstrated mild spondylosis throughout. There is a L1 vertebral fracture with approximately 50% reduction of vertebral column height. There is retropulsion of posterior cortex with about 15% to 20% impingement in the anterior spinal canal. IMPRESSION: 1. Acute L1 osteoporotic vertebral burst fracture. 2. Myeloproliferative disorder. 3. Hypertension. 4. Chronic obstructive pulmonary disease on chronic steroid. RECOMMENDATIONS: The patient presents with 5-day history of increasing mid-to- lower back pain as a result of an osteoporotic compression fracture. He was lifting, and this likely has come about as a result. A prior MRI only demonstrated degenerative disk disease, and he previously had the right L3-4 paracentral disk protrusion with a small extruded disk fragment. That MRI was back in March. His pain is now mostly slightly higher, and it is bilateral. The neurological examination is nonfocal at this time other than his symptoms are most consistent with peripheral neuropathy. He does have CT scan evidence of acute L1 fracture with the posterior cortex breach. There is approximately 15% to 20% anterior canal impingement. As the patient has no neurological deficit, no neurosurgical intervention is recommended. Generally, vertebral burst fractures will heal and remodel with time. A TLSO brace is recommended. This is to be used whenever the patient is out of bed. If pain persists, the patient could be considered for vertebroplasty. The patient is advised to observe for any increasing weakness, numbness, or loss of bowel/bladder control. All questions were answered at the bedside. The patient expresses understanding of his condition as well as his treatment options. CHANCE ESCOBAR M.D. DANIEL/[id number] MTDD
[2017-08-12] MEDS: CYCLOBENZAPRINE HCL 10 MG TABLET (FP) PO SCH ×2 (15:44→22:13)
--- NOTE | 2017-08-12 16:34 | PN ---
Progress Note (short form) - Note Progress Note: pt seen and examined seen by NSG continues to have pain , no incontinence. HEENT: VIVIAN, EOM Intact Oropharynx: No thrush, No mucositis Neck: Supple Cor: RSR, No murmurs, No gallops Lungs: Clear to P&A Abd: Soft, Normal bowel sounds, No organomegaly Ext:No significant edema Temp Pulse Resp BP Pulse Ox 98.1 F 86 18 125/65 08/12/17 15:04 08/12/17 15:04 08/12/17 15:04 08/12/17 15:04 CBC, BMP 08/11/17 11:30 08/10/17 10:43 Current Medications Generic Name Dose Route Start Last Admin Trade Name Freq PRN Reason Stop Dose Admin Amlodipine Besylate 5 mg 08/12/17 10:00 08/12/17 10:01 Norvasc - PO Not Given DAILY ABBY Anagrelide HCl 1 mg 08/12/17 10:00 08/12/17 11:09 Agrylin PO Not Given BID ABBY Aspirin 81 mg 08/12/17 10:00 08/12/17 10:00 Asa - PO Not Given DAILY ABBY Atovaquone 1,500 mg 08/12/17 08:00 08/12/17 12:38 Mepron - PO 1,500 mg DAILY@0800 ABBY Administration Cyclobenzaprine HCl 10 mg 08/11/17 10:00 08/12/17 15:44 Flexeril - PO Not Given BID ABBY Docusate Sodium 100 mg 08/11/17 14:17 Colace - PO Q8H PRN CONSTIPATION Gabapentin 600 mg 08/11/17 14:00 08/12/17 15:43 Neurontin - PO 600 mg TID ABBY Administration Nf-Jadenu 360mg Tabs 2 each 08/12/17 10:00 08/12/17 12:37 PO 2 each DAILY ABBY Administration Oxycodone HCl 5 mg 08/11/17 14:17 08/12/17 05:21 Roxicodone - PO 5 mg Q6H PRN Administration PAIN Prednisone 5 mg 08/12/17 10:00 08/12/17 10:01 Deltasone - PO Not Given DAILY ABBY Senna 2 tab 08/12/17 07:42 Senna - PO HS PRN CONSTIPATION Sotalol HCl 80 mg 08/12/17 10:00 08/12/17 10:00 Betapace - PO Not Given BID [facility] Tamsulosin HCl 0.4 mg 08/12/17 08:30 08/12/17 08:40 Flomax - PO Not Given DAILY@0830 ABBY 72 y/o patient with myeloproliferative disorder, on anagrelide for labs in the am appreciate NSG, for TLSO brace for CT L spine shows L1 vertebral compression fx pain control, seen by , presently on oxy, will monitor on the same regimen appreciate cardiology input , will f.u on ECG physical therapy
[2017-08-12] MEDS ORDERED: PT OWN MED DRAWER 7, Y5N ONE (22:10)
[2017-08-13] MEDS: GABAPENTIN 300 MG CAPSULE (FP) PO SCH ×3 (06:27→21:03)
[2017-08-13] MEDS: oxyCODONE HCL 5 MG TABLET PO PRN ×2 (06:30→21:02)
[2017-08-13 08:13] LABS: HEMATOCRIT 17.4 % (35.4-49); MCH 28.2 pg (25.7-33.7); MCHC 31.9 g/dl (32.0-35.9); MEAN CELL VOLUME 88.4 fl (80-96); MEAN PLT VOLUME 10.3 fl (7.5-11.1); RBC 1.97 M/mm3 (4.00-5.60); RDW 20.7 % (11.9-15.9); WHITE BLOOD COUNT 9.4 K/mm3 (4.0-10.0)
[2017-08-13 08:22] LABS: ADD RBC MORPHOLOGY YES
[2017-08-13 08:24] LABS: HEMOGLOBIN 5.5 GM/dL (11.7-16.9)
[2017-08-13 08:35] LABS: ALBUMIN 3.5 g/dl (3.4-5.0); ALK PHOS 64 U/L (45-117); ANION GAP 3 (8-16); BILIRUBIN,TOTAL 1.3 mg/dL (0.2-1.0); BLOOD UREA NITROGEN 17 mg/dL (7-18); CALCIUM 8.5 mg/dL (8.5-10.1); CHLORIDE 106 mmol/L (98-107); CO2 32 mmol/L (21-32); CREATININE 0.8 mg/dL (0.7-1.3); GLUCOSE,RANDOM 77 mg/dL (74-106); POTASSIUM 4.3 mmol/L (3.5-5.1); SGOT/AST 9 U/L (15-37); SGPT/ALT 10 U/L (12-78); SODIUM 141 mmol/L (136-145); TOT PROT 5.8 g/dl (6.4-8.2)
[2017-08-13] MEDS ORDERED: PT OWN MED DRAWER 7, Y5N ONE ×2 (09:49→15:21)
[2017-08-13 09:53] LABS: ANISOCYTOSIS 2+
[2017-08-13] MEDS: TAMSULOSIN HCL 0.4 MG CAP.ER.24H (FP) PO SCH (09:55)
[2017-08-13] MEDS: predniSONE 5 MG TABLET (UD) PO SCH (09:55)
[2017-08-13] MEDS: amLODIPine BESYLATE 5 MG TABLET (FP) PO SCH (09:55)
[2017-08-13] MEDS: CYCLOBENZAPRINE HCL 10 MG TABLET (FP) PO SCH ×2 (09:55→21:03)
[2017-08-13] MEDS: SOTALOL HCL 80 MG TABLET (FP) PO SCH ×2 (09:55→21:03)
[2017-08-13] MEDS: ANAGRELIDE HCL 0.5 MG CAPSULE PO SCH ×2 (09:56→21:03)
[2017-08-13] MEDS: ASPIRIN 81 MG CHEWABLE TABLETS PO SCH (09:57)
[2017-08-13] MEDS: ATOVAQUONE 750 MG/5 ML (UNIT-DOSE PACKAGING) PO SCH (09:57)
[2017-08-13 10:03] LABS: HEMATOCRIT 26.1 % (35.4-49); HEMOGLOBIN 8.2 GM/dL (11.7-16.9); MCH 27.4 pg (25.7-33.7); MCHC 31.3 g/dl (32.0-35.9); MEAN CELL VOLUME 87.6 fl (80-96); MEAN PLT VOLUME 9.7 fl (7.5-11.1); RBC 2.98 M/mm3 (4.00-5.60); RDW 20.7 % (11.9-15.9); WHITE BLOOD COUNT 16.1 K/mm3 (4.0-10.0)
--- NOTE | 2017-08-13 10:16 | PN ---
Progress Note (short form) - Note Progress Note: NEUROSURGERY h/o myeloproliferative disorder and hypertension reports acute on chronic low back. Moving furniture several days ago and felt a pop with worsening low back pain. MRI earlier in the year only demonstrated DDD. EMG last year reportedly showed "nerve problem" R foot. Pain slightly better than previously on meds. PE: AF, VSS HEENT- NC/AT; Neck- supple; Cor- RR; Lungs- CTA; Abd- benign; Ext- old R ankle fx, no sign of DVT CN- intact; Motor- 4+-5 B UE/LE; Sensation- mildly decreased distal vibration distal B LE; DTR- hyporeflexic; Back- mild tenderness waist to waist MRI LS spine (): multilevel DDD, facet hypertrophy, ligamentum hypertrophy , mild foramenal narrowing at multiple levels; R L3-4 paracentral disc pritrusion/extrusion with mild thecal sac impingement and prox foramenal narrowing; L5-S1 disc bulge with facet hypetrophy B L5-S1 foramenal stenosis R > L LS CT- L1 burst fx with 50% vertebral column height reduction, 20 % anterior canal impingement Oteoporotic L1 burst fracture R L3-4 paracentral HNP and L5-S1 disc bulge and foramenal stenosis Neurosurgical intervention not recommended as pt has no significant deficits Recommend TLSO brace x 3 months when OOB If persistent pain consider vertebroplasty (not a good candidate for kyphoplastic as posterior cortex is breached) with time Observed for worsening pain, strength, sensation, B/B dysfunction, and pt aware Most traumatic burst fractures when not associated with neurological deficit initially generally heal and remodel with time, though some further vertebral height reduction possible given osteoporosis/steroid use
[2017-08-13 11:11] LABS: PLATELET COUNT 266 K/MM3 (134-434); PLATELET ESTIMATE ADEQUATE
--- NOTE | 2017-08-13 11:11 | PN ---
Progress Note (short form) - Note Progress Note: s: no cp sob palps dizzy o: Vital Signs Period Temp Pulse Resp BP Sys/Paredes Pulse Ox Last 24 Hr 98.1 F-98.6 F 75-87 12-20 121-147/64-85 96 Neck: Yes: Supple Respiratory: Yes: CTA Bilaterally Gastrointestinal: Yes: Normal Bowel Sounds, Soft. No: Tenderness Cardiovascular: Yes: Pulse Irregular JVD: No PMI: Non-Displaced Heart Sounds: Yes: S1, S2. No: Gallop Murmur: No: Systolic Murmur Edema: No no jaundice diaphoresis Current Medications Generic Name Dose Route Start Last Admin Trade Name Freq PRN Reason Stop Dose Admin Amlodipine Besylate 5 mg 08/12/17 10:00 08/13/17 09:55 Norvasc - PO 5 mg DAILY ABBY Administration Anagrelide HCl 1 mg 08/13/17 10:00 08/13/17 09:56 Agrylin - PO 1 mg BID ABBY Administration Aspirin 81 mg 08/12/17 10:00 08/13/17 09:57 Asa - PO 81 mg DAILY ABBY Administration Atovaquone 1,500 mg 08/12/17 08:00 08/13/17 09:57 Mepron - PO 1,500 mg DAILY@0800 ABBY Administration Cyclobenzaprine HCl 10 mg 08/11/17 10:00 08/13/17 09:55 Flexeril - PO 10 mg BID ABBY Administration Docusate Sodium 100 mg 08/11/17 14:17 08/12/17 19:21 Colace - PO 100 mg Q8H PRN Administration CONSTIPATION Gabapentin 600 mg 08/11/17 14:00 08/13/17 06:27 Neurontin - PO 600 mg TID ABBY Administration Nf-Jadenu 360mg Tabs 2 each 08/12/17 10:00 08/12/17 12:37 PO 2 each DAILY ABBY Administration Oxycodone HCl 5 mg 08/11/17 14:17 08/13/17 06:30 Roxicodone - PO 5 mg Q6H PRN Administration PAIN Prednisone 5 mg 08/12/17 10:00 08/13/17 09:55 Deltasone - PO 5 mg DAILY ABBY Administration Senna 2 tab 08/12/17 07:42 Senna - PO HS PRN CONSTIPATION Sotalol HCl 80 mg 08/12/17 10:00 08/13/17 09:55 Betapace - PO 80 mg BID ABBY Administration Tamsulosin HCl 0.4 mg 08/12/17 08:30 08/13/17 09:55 Flomax - PO 0.4 mg DAILY@0830 ABBY Administration CBC, BMP 08/13/17 09:35 08/13/17 06:30 echo 07/2016: nl lv/rv, mod arnulfo, mod mr, mod-sev tr, rvsp 50-60 a/p: 72 m hx of anemia, MDS/MPD , pafib, sent to ER for elective prbcs. mds, anemia: -prbcs per Heme pafib: -maintained on sotalol at home, rate controlled, cont same -not on ac 2/2 severe anemia from MDS, cont asa as has been doing -pt requires anagralide for mds which can prolong qtc, as well as sotalol-->ECG done here 08/12/17 is unremarkable and shows normal qtc. -can continue anagralide and sotalol with periodic monitoring of ecg
[2017-08-13 11:16] LABS: PLATELET COUNT 266 K/MM3 (134-434)
--- NOTE | 2017-08-13 11:31 | PN ---
Progress Note (short form) - Note Progress Note: pt seen and examined CBC error this am, repeat hgb with 8.2. Pt condition unchanged. HEENT: VIVIAN, EOM Intact Oropharynx: No thrush, No mucositis Neck: Supple Cor: RSR, No murmurs, No gallops Lungs: Clear to P&A Abd: Soft, Normal bowel sounds, No organomegaly Ext:No significant edema Last Vital Signs Temp Pulse Resp BP Pulse Ox 98.5 F 75 12 146/64 96 08/13/17 05:48 08/13/17 05:48 08/13/17 05:48 08/13/17 05:48 08/12/17 21:00 CBC, BMP 08/13/17 09:35 08/13/17 06:30 Current Medications Generic Name Dose Route Start Last Admin Trade Name Freq PRN Reason Stop Dose Admin Amlodipine Besylate 5 mg 08/12/17 10:00 08/13/17 09:55 Norvasc - PO 5 mg DAILY ABBY Administration Anagrelide HCl 1 mg 08/13/17 10:00 08/13/17 09:56 Agrylin - PO 1 mg BID ABBY Administration Aspirin 81 mg 08/12/17 10:00 08/13/17 09:57 Asa - PO 81 mg DAILY ABBY Administration Atovaquone 1,500 mg 08/12/17 08:00 08/13/17 09:57 Mepron - PO 1,500 mg DAILY@0800 ABBY Administration Cyclobenzaprine HCl 10 mg 08/11/17 10:00 08/13/17 09:55 Flexeril - PO 10 mg BID ABBY Administration Docusate Sodium 100 mg 08/11/17 14:17 08/12/17 19:21 Colace - PO 100 mg Q8H PRN Administration CONSTIPATION Gabapentin 600 mg 08/11/17 14:00 08/13/17 06:27 Neurontin - PO 600 mg TID ABBY Administration Nf-Jadenu 360mg Tabs 2 each 08/12/17 10:00 08/12/17 12:37 PO 2 each DAILY ABBY Administration Oxycodone HCl 5 mg 08/11/17 14:17 08/13/17 06:30 Roxicodone - PO 5 mg Q6H PRN Administration PAIN Prednisone 5 mg 08/12/17 10:00 08/13/17 09:55 Deltasone - PO 5 mg DAILY ABBY Administration Senna 2 tab 08/12/17 07:42 Senna - PO HS PRN CONSTIPATION Sotalol HCl 80 mg 08/12/17 10:00 08/13/17 09:55 Betapace - PO 80 mg BID ABBY Administration Tamsulosin HCl 0.4 mg 08/12/17 08:30 08/13/17 09:55 Flomax - PO 0.4 mg DAILY@0830 ABBY Administration 72 y/o patient with myeloproliferative disorder, on anagrelide for labs in the am ,monitor CBC L1 compression fracture: conservative mgmt. pain control On oxy prn, cyclobenzaprine, gabapentin , will consider long acting? appreciate Cardiology, will c.w BB and Anagrelide, with frequent monitoring of CBC physical therapy
[2017-08-13] MEDS: JADENU 360 MG PO SCH (12:03)
[2017-08-14] MEDS ORDERED: PT OWN MED DRAWER 7, Y5N ONE ×2 (05:33→08:46)
[2017-08-14] MEDS: oxyCODONE HCL 5 MG TABLET PO PRN ×3 (06:25→21:32)
[2017-08-14] MEDS: GABAPENTIN 300 MG CAPSULE (FP) PO SCH ×3 (06:25→21:31)
[2017-08-14] MEDS: predniSONE 5 MG TABLET (UD) PO SCH (09:02)
[2017-08-14] MEDS: amLODIPine BESYLATE 5 MG TABLET (FP) PO SCH (09:02)
[2017-08-14] MEDS: CYCLOBENZAPRINE HCL 10 MG TABLET (FP) PO SCH ×2 (09:02→21:31)
[2017-08-14] MEDS: JADENU 360 MG PO SCH (09:02)
[2017-08-14] MEDS: SOTALOL HCL 80 MG TABLET (FP) PO SCH ×2 (09:02→21:30)
[2017-08-14] MEDS: ASPIRIN 81 MG CHEWABLE TABLETS PO SCH (09:02)
[2017-08-14] MEDS: ATOVAQUONE 750 MG/5 ML (UNIT-DOSE PACKAGING) PO SCH (09:03)
[2017-08-14] MEDS: TAMSULOSIN HCL 0.4 MG CAP.ER.24H (FP) PO SCH (09:03)
[2017-08-14] MEDS: ANAGRELIDE HCL 0.5 MG CAPSULE PO SCH ×2 (09:03→21:30)
--- NOTE | 2017-08-14 10:08 | PN ---
Progress Note (short form) - Note Progress Note: NEUROSURGERY Pain better 3-4 when lying down, 6 when up, better than on admission Sitting up in bed PE: AF, VSS HEENT- NC/AT; Neck- supple; Cor- RR; Lungs- CTA; Abd- benign; Ext- old R ankle fx, no sign of DVT CN- intact; Motor- 4+-5 B UE/LE, L DF 4/5; Sensation- mildly decreased distal vibration distal B LE; DTR- hyporeflexic; Back- mild tenderness waist to waist LS CT- L1 burst fx with 50% vertebral column height reduction, 20 % anterior canal impingement Oteoporotic L1 burst fracture R L3-4 paracentral HNP and L5-S1 disc bulge and foramenal stenosis Neurosurgical intervention not recommended as pt has no significant deficits Recommended TLSO brace x 3 months when OOB (order to central supply) If persistent pain consider vertebroplasty Observed for worsening pain, strength, sensation, B/B dysfunction, and pt aware Most traumatic burst fractures when not associated with neurological deficit initially generally heal and remodel with time, though some further vertebral height reduction possible given osteoporosis/steroid use
--- NOTE | 2017-08-14 10:24 | PN ---
Progress Note (short form) - Note Progress Note: Neurology History of Present Illness The patient is a 71 year old male with a significant past medical history of myeloproliferative disorder and hypertension, who is admitted for transfusion but reports acute on chronic low back. States he was movign some furniture several days ago and felt a pop and since has been having worsened low back pain. He did have an MRI L spine from 03/2017 which I reviewed and has multilevel disc degeneration and hernation with nerve root compression and neural foramna stenosis. CT L spine, L1 compression Fx reported, seen by Dr. Mccabe and Dr. Patel, notes reviewed. Getting pain mgmt, Dr. Patel recommended vertebroplasty and patient considering further intervention. Active Medications Amlodipine Besylate (Norvasc -) 5 mg PO DAILY [facility] Last Admin: 08/14/17 09:02 Dose: 5 mg Anagrelide HCl (Agrylin -) 1 mg PO BID [facility] Last Admin: 08/14/17 09:03 Dose: 1 mg Aspirin (Asa -) 81 mg PO DAILY [facility] Last Admin: 08/14/17 09:02 Dose: 81 mg Atovaquone (Mepron -) 1,500 mg PO DAILY@0800 [facility] Last Admin: 08/14/17 09:03 Dose: 1,500 mg Cyclobenzaprine HCl (Flexeril -) 10 mg PO BID [facility] Last Admin: 08/14/17 09:02 Dose: 10 mg Docusate Sodium (Colace -) 100 mg PO Q8H PRN PRN Reason: CONSTIPATION Last Admin: 08/12/17 19:21 Dose: 100 mg Gabapentin (Neurontin -) 600 mg PO TID [facility] Last Admin: 08/14/17 06:25 Dose: 600 mg Nf-Jadenu 360mg Tabs 2 each PO DAILY [facility] Last Admin: 08/14/17 09:02 Dose: 2 each Oxycodone HCl (Roxicodone -) 5 mg PO Q6H PRN PRN Reason: PAIN Last Admin: 08/14/17 06:25 Dose: 5 mg Prednisone (Deltasone -) 5 mg PO DAILY [facility] Last Admin: 08/14/17 09:02 Dose: 5 mg Senna (Senna -) 2 tab PO HS PRN PRN Reason: CONSTIPATION Sotalol HCl (Betapace -) 80 mg PO BID [facility] Last Admin: 08/14/17 09:02 Dose: 80 mg Tamsulosin HCl (Flomax -) 0.4 mg PO DAILY@0830 [facility] Last Admin: 08/14/17 09:03 Dose: 0.4 mg *Physical Exam Vital Signs Period Temp Pulse Resp BP Sys/Paredes Pulse Ox Last 24 Hr 97.5 F-98.4 F 86-100 16-20 111-148/66-75 96 GENERAL: Awake, alert, and fully oriented, in no acute distress HEAD: No signs of trauma EYES: PERRLA, EOMI, sclera anicteric, conjunctiva clear ENT: Auricles normal inspection, hearing grossly normal, nares patent, oropharynx clear without exudates. Moist mucosa NECK: Normal ROM, supple, no lymphadenopathy, JVD, or masses LUNGS: Breath sounds equal, clear to auscultation bilaterally. No wheezes, and no crackles HEART: Regular rate and rhythm, normal S1 and S2, no murmurs, rubs or gallops ABDOMEN: Soft, nontender, normoactive bowel sounds. No guarding, no rebound. No masses EXTREMITIES: L hip slightly decreased forward flexion due to pain. +Tenderness to L hip and iliac crest. Remainder of extremities with normal range of motion, no edema. No clubbing or cyanosis. No cords, erythema, or tenderness NEUROLOGICAL: Cranial nerves II through XII grossly intact. Normal speech. Strenght grossly 5-/5 in LE, pain limited, gait deferred SKIN: Warm, Dry, normal turgor, no rashes or lesions noted. MRI L spine reviewed CT L spine reviewed Plan: 71 year old male with a significant past medical history of myeloproliferative disorder and hypertension, who is admitted for transfusion but reports acute on chronic low back. States he was moving some furniture and felt a pop and since has been having worsened low back pain. He did have an MRI L spine from 03/2017 which I reviewed and has multilevel disc degeneration and hernation with nerve root compression and neural foramna stenosis. CT L spine with L1 fx noted. Has been taking fátima 600mg twice daily with some relief but still with discomfort. Added muscle relaxantand is also on prednisone with some relief. Dr. Patel note appreciated and being considered for vertebroplasty.
[2017-08-14 10:34] LABS: BASO % 4.1 % (0-2.0); EOS % 3.1 % (0-4.5); HEMATOCRIT 27.4 % (35.4-49); HEMOGLOBIN 8.5 GM/dL (11.7-16.9); LYMPH % 14.9 % (8-40); MCH 26.9 pg (25.7-33.7); MEAN CELL VOLUME 86.8 fl (80-96); MEAN PLT VOLUME 10.9 fl (7.5-11.1); MONO % 3.5 % (3.8-10.2); NEUT % 74.4 % (42.8-82.8); PLATELET COUNT 240 K/MM3 (134-434); RBC 3.16 M/mm3 (4.00-5.60); RDW 21.5 % (11.9-15.9); WHITE BLOOD COUNT 20.1 K/mm3 (4.0-10.0)
--- NOTE | 2017-08-14 10:48 | PN ---
Progress Note (short form) - Note Progress Note: 72 year old AA male known case of hypertension, paroxysmal atrial fib, myelodysplastic syndrome admitted with acute low back pain after moving a piece of furniture. C/o of back pain, no Sob or chest discomfort. On Anagrelide which can prolong Qtc for thrombocythemia. Active Medications Generic Name Dose Route Start Last Admin Trade Name Freq PRN Reason Stop Dose Admin Amlodipine Besylate 5 mg 08/12/17 10:00 08/15/17 09:18 Norvasc - PO 5 mg DAILY ABBY Administration Anagrelide HCl 1 mg 08/13/17 10:00 08/15/17 09:20 Agrylin - PO 1 mg BID ABBY Administration Aspirin 81 mg 08/12/17 10:00 08/15/17 09:18 Asa - PO 81 mg DAILY ABBY Administration Atovaquone 1,500 mg 08/12/17 08:00 08/15/17 09:34 Mepron - PO Not Given DAILY@0800 ABBY Cyclobenzaprine HCl 10 mg 08/11/17 10:00 08/15/17 09:19 Flexeril - PO 10 mg BID ABBY Administration Docusate Sodium 100 mg 08/11/17 14:17 08/12/17 19:21 Colace - PO 100 mg Q8H PRN Administration CONSTIPATION Gabapentin 600 mg 08/11/17 14:00 08/15/17 06:20 Neurontin - PO 600 mg TID ABBY Administration Nf-Jadenu 360mg Tabs 2 each 08/12/17 10:00 08/15/17 09:20 PO 2 each DAILY ABBY Administration Oxycodone HCl 5 mg 08/14/17 19:47 08/15/17 09:56 Roxicodone - PO 5 mg Q6H PRN Administration Prednisone 5 mg 08/12/17 10:00 08/15/17 09:18 Deltasone - PO 5 mg DAILY ABBY Administration Senna 2 tab 08/12/17 07:42 Senna - PO HS PRN CONSTIPATION Sotalol HCl 80 mg 08/12/17 10:00 08/15/17 09:18 Betapace - PO 80 mg BID ABBY Administration Tamsulosin HCl 0.4 mg 08/12/17 08:30 08/15/17 09:18 Flomax - PO 0.4 mg DAILY@0830 ABBY Administration 72 year old AA male, c/o back pain, pallor+, no cyanosis, clubbing or jaundice. Last Vital Signs Temp Pulse Resp BP Pulse Ox 98 F 87 18 157/76 96 08/15/17 09:53 08/15/17 09:53 08/15/17 09:53 08/15/17 09:53 08/14/17 09:00 NECK: Supple, no JVD, carotids equal, no bruits heard. HEART: PMI in the 5th ICS, no heaves or thrills, No murmur or gallops heard. LUNGS: Clear. ABDOMEN: Soft, nontender, no hepatomegaly, dullnes left upper quadrant. EXTREMITIES: No edema or calf tenderness. CBC, BMP 08/14/17 09:35 08/13/17 06:30 A: 1.Hypertension. 2.Myelodysplastic syndrome. 3.Low back pain, related to compression fracture. 4.Paroxysmal atrial fibrillation. P: 1.Close f/u EKG. 2.Continue current therapy.
[2017-08-14 11:15] LABS: ADD RBC MORPHOLOGY YES
[2017-08-14 11:16] LABS: ANISOCYTOSIS 2+; OVALOCYTE 1+; PLATELET ESTIMATE ADEQUATE; TARGET CELLS 1+; TEAR DROP CELLS 1+
--- NOTE | 2017-08-14 18:20 | PN ---
Progress Note (short form) - Note Progress Note: Patient seen and examined 08/11/17 c/o back pain' Last Vital Signs Temp Pulse Resp BP Pulse Ox 98.1 F 84 20 130/60 96 08/14/17 21:35 08/14/17 21:35 08/14/17 21:35 08/14/17 21:35 08/14/17 09:00 HEENT: VIVIAN, EOM Intact Oropharynx: No thrush, No mucositis Neck: Supple Cor: RSR, No murmurs, No gallops Lungs: Clear to P&A Abd: Soft, Normal bowel sounds, No organomegaly Ext:No significant edema Abnormal Lab Results 08/14/17 09:35 WBC 20.1 H RBC 3.16 L Hgb 8.5 L Hct 27.4 L MCHC 31.0 L RDW 21.5 H Monocytes % 3.5 L Basophils % 4.1 H Active Medications Amlodipine Besylate (Norvasc -) 5 mg PO DAILY [facility] Last Admin: 08/14/17 09:02 Dose: 5 mg Anagrelide HCl (Agrylin -) 1 mg PO BID [facility] Last Admin: 08/14/17 21:30 Dose: 1 mg Aspirin (Asa -) 81 mg PO DAILY [facility] Last Admin: 08/14/17 09:02 Dose: 81 mg Atovaquone (Mepron -) 1,500 mg PO DAILY@0800 [facility] Last Admin: 08/14/17 09:03 Dose: 1,500 mg Cyclobenzaprine HCl (Flexeril -) 10 mg PO BID [facility] Last Admin: 08/14/17 21:31 Dose: 10 mg Docusate Sodium (Colace -) 100 mg PO Q8H PRN PRN Reason: CONSTIPATION Last Admin: 08/12/17 19:21 Dose: 100 mg Gabapentin (Neurontin -) 600 mg PO TID [facility] Last Admin: 08/14/17 21:31 Dose: 600 mg Nf-Jadenu 360mg Tabs 2 each PO DAILY [facility] Last Admin: 08/14/17 09:02 Dose: 2 each Oxycodone HCl (Roxicodone -) 5 mg PO Q6H PRN Last Admin: 08/14/17 21:32 Dose: 5 mg Prednisone (Deltasone -) 5 mg PO DAILY [facility] Last Admin: 08/14/17 09:02 Dose: 5 mg Senna (Senna -) 2 tab PO HS PRN PRN Reason: CONSTIPATION Sotalol HCl (Betapace -) 80 mg PO BID [facility] Last Admin: 08/14/17 21:30 Dose: 80 mg Tamsulosin HCl (Flomax -) 0.4 mg PO DAILY@0830 [facility] Last Admin: 08/14/17 09:03 Dose: 0.4 mg A/P 72 y/o patient with myeloproliferative disorder, on anagrelide Here for transfusions also noted to have back pain-- CT L spine shows L1 vertebral compression fx pain control brace to f/uneuro surgery recs regarding kyphoplasty
[2017-08-15] MEDS: GABAPENTIN 300 MG CAPSULE (FP) PO SCH ×2 (06:20→15:13)
--- NOTE | 2017-08-15 08:13 | PN ---
Progress Note (short form) - Note Progress Note: NEUROSURGERY Pain to R hip area > L Thoracic-lumbar support brace at bedside Pt tried it last night PE: AF, VSS HEENT- NC/AT; Neck- supple; Cor- RR; Lungs- CTA; Abd- benign; Ext- old R ankle fx, no sign of DVT CN- intact; Motor- 5 B UE/LE; Sensation- mildly decreased distal vibration distal B LE; DTR- hyporeflexic; Back- mild tenderness waist to waist LS CT- L1 burst fx with avg 50% vertebral column height reduction, 20 % anterior canal impingement Oteoporotic L1 burst fracture R L3-4 paracentral HNP and L5-S1 disc bulge and foramenal stenosis Neurosurgical intervention not recommended as pt has no significant focal deficits referable to L1 fx TLSO brace x 3 months when OOB Upright LS spine x rays in 1 week to assess L1 vertebral stature If persistent pain consider vertebroplasty Observed for worsening pain, strength, sensation, B/B dysfunction, and pt aware OOB wth PT/brace today
[2017-08-15] MEDS ORDERED: PT OWN MED DRAWER 7, Y5N ONE ×2 (09:06→10:04)
[2017-08-15] MEDS: SOTALOL HCL 80 MG TABLET (FP) PO SCH (09:18)
[2017-08-15] MEDS: amLODIPine BESYLATE 5 MG TABLET (FP) PO SCH (09:18)
[2017-08-15] MEDS: ASPIRIN 81 MG CHEWABLE TABLETS PO SCH (09:18)
[2017-08-15] MEDS: predniSONE 5 MG TABLET (UD) PO SCH (09:18)
[2017-08-15] MEDS: TAMSULOSIN HCL 0.4 MG CAP.ER.24H (FP) PO SCH (09:18)
[2017-08-15] MEDS: CYCLOBENZAPRINE HCL 10 MG TABLET (FP) PO SCH (09:19)
[2017-08-15] MEDS: JADENU 360 MG PO SCH (09:20)
[2017-08-15] MEDS: ANAGRELIDE HCL 0.5 MG CAPSULE PO SCH (09:20)
[2017-08-15] MEDS: ATOVAQUONE 750 MG/5 ML (UNIT-DOSE PACKAGING) PO SCH ×2 (09:34→15:03)
[2017-08-15] MEDS: oxyCODONE HCL 5 MG TABLET PO PRN (09:56)
--- NOTE | 2017-08-15 10:35 | PN ---
Progress Note (short form) - Note Progress Note: Neurology History of Present Illness The patient is a 71 year old male with a significant past medical history of myeloproliferative disorder and hypertension, who is admitted for transfusion but reports acute on chronic low back. States he was movign some furniture several days ago and felt a pop and since has been having worsened low back pain. He did have an MRI L spine from 03/2017 which I reviewed and has multilevel disc degeneration and hernation with nerve root compression and neural foramna stenosis. CT L spine, L1 compression Fx reported, seen by Dr. Mccabe and Dr. Patel, notes reviewed. Getting pain mgmt, Dr. Patel recommended vertebroplasty and patient considering further intervention. This AM, seen walking with physical therapist and with antalgic gait and requiring rolling walker but still with two therapists seemed slightly unsteady. Has brace in place and this is also difficult for him to put on. Discussed with patient, therapist, and case picker, rehab maybe of benefit. Patient interested in facility nearby and in agreement. 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 Active Medications Amlodipine Besylate (Norvasc -) 5 mg PO DAILY [facility] Last Admin: 08/15/17 09:18 Dose: 5 mg Anagrelide HCl (Agrylin -) 1 mg PO BID [facility] Last Admin: 08/15/17 09:20 Dose: 1 mg Aspirin (Asa -) 81 mg PO DAILY [facility] Last Admin: 08/15/17 09:18 Dose: 81 mg Atovaquone (Mepron -) 1,500 mg PO DAILY@0800 [facility] Last Admin: 08/15/17 09:34 Dose: Not Given Cyclobenzaprine HCl (Flexeril -) 10 mg PO BID [facility] Last Admin: 08/15/17 09:19 Dose: 10 mg Docusate Sodium (Colace -) 100 mg PO Q8H PRN PRN Reason: CONSTIPATION Last Admin: 08/12/17 19:21 Dose: 100 mg Gabapentin (Neurontin -) 600 mg PO TID [facility] Last Admin: 08/15/17 06:20 Dose: 600 mg Nf-Jadenu 360mg Tabs 2 each PO DAILY [facility] Last Admin: 08/15/17 09:20 Dose: 2 each Oxycodone HCl (Roxicodone -) 5 mg PO Q6H PRN Last Admin: 08/15/17 09:56 Dose: 5 mg Prednisone (Deltasone -) 5 mg PO DAILY [facility] Last Admin: 08/15/17 09:18 Dose: 5 mg Senna (Senna -) 2 tab PO HS PRN PRN Reason: CONSTIPATION Sotalol HCl (Betapace -) 80 mg PO BID [facility] Last Admin: 08/15/17 09:18 Dose: 80 mg Tamsulosin HCl (Flomax -) 0.4 mg PO DAILY@0830 [facility] Last Admin: 08/15/17 09:18 Dose: 0.4 mg *Physical Exam Vital Signs Temperature 98 F 08/15/17 09:53 Pulse Rate 87 08/15/17 09:53 Respiratory Rate 18 08/15/17 09:53 Blood Pressure 157/76 08/15/17 09:53 O2 Sat by Pulse Oximetry (%) 96 08/14/17 09:00 GENERAL: Awake, alert, and fully oriented, in no acute distress HEAD: No signs of trauma EYES: PERRLA, EOMI, sclera anicteric, conjunctiva clear ENT: Auricles normal inspection, hearing grossly normal, nares patent, oropharynx clear without exudates. Moist mucosa NECK: Normal ROM, supple, no lymphadenopathy, JVD, or masses LUNGS: Breath sounds equal, clear to auscultation bilaterally. No wheezes, and no crackles HEART: Regular rate and rhythm, normal S1 and S2, no murmurs, rubs or gallops ABDOMEN: Soft, nontender, normoactive bowel sounds. No guarding, no rebound. No masses EXTREMITIES: L hip slightly decreased forward flexion due to pain. +Tenderness to L hip and iliac crest. Remainder of extremities with normal range of motion, no edema. No clubbing or cyanosis. No cords, erythema, or tenderness NEUROLOGICAL: Cranial nerves II through XII grossly intact. Normal speech. Strenght grossly 5-/5 in LE, pain limited, gait deferred SKIN: Warm, Dry, normal turgor, no rashes or lesions noted. MRI L spine reviewed CT L spine reviewed Plan: 71 year old male with a significant past medical history of myeloproliferative disorder and hypertension, who is admitted for transfusion but reports acute on chronic low back. States he was moving some furniture and felt a pop and since has been having worsened low back pain. He did have an MRI L spine from 03/2017 which I reviewed and has multilevel disc degeneration and hernation with nerve root compression and neural foramna stenosis. CT L spine with L1 fx noted. Has been taking fátima 600mg twice daily with some relief but still with discomfort. Added muscle relaxantand is also on prednisone with some relief. Dr. Patel note appreciated and being considered for vertebroplasty. Antalgic gait and requiring rolling walker with brace in place and this is also difficult for him to put on. Discussed with patient, therapist, and case picker, rehab maybe of benefit. Patient interested in facility nearby and in agreement. 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 Monitor for fall precautions Will need assistance with putting on and taking off brace at facility
--- NOTE | 2017-08-15 13:11 | PN ---
Progress Note (short form) - Note Progress Note: Pt seen and examined. Chart reviewed. Pain a little better PT notes reviewed All consults reviewed. O/E: HEENT: VIVIAN, EOM Intact Oropharynx: No thrush, No mucositis Neck: Supple Cor: RSR, No murmurs, No gallops Lungs: Clear to P&A Abd: Soft, Normal bowel sounds, No organomegaly Ext:No significant edema Last Vital Signs Temp Pulse Resp BP Pulse Ox 98 F 87 18 157/76 96 08/15/17 09:53 08/15/17 09:53 08/15/17 09:53 08/15/17 09:53 08/14/17 09:00 CBC, BMP 08/14/17 09:35 08/13/17 06:30 Current Medications Generic Name Dose Route Start Last Admin Trade Name Freq PRN Reason Stop Dose Admin Amlodipine Besylate 5 mg 08/12/17 10:00 08/15/17 09:18 Norvasc - PO 5 mg DAILY [facility] Administration Anagrelide HCl 1 mg 08/13/17 10:00 08/15/17 09:20 Agrylin - PO 1 mg BID [facility] Administration Aspirin 81 mg 08/12/17 10:00 08/15/17 09:18 Asa - PO 81 mg DAILY [facility] Administration Atovaquone 1,500 mg 08/12/17 08:00 08/15/17 09:34 Mepron - PO Not Given DAILY@0800 [facility] Cyclobenzaprine HCl 10 mg 08/11/17 10:00 08/15/17 09:19 Flexeril - PO 10 mg BID [facility] Administration Docusate Sodium 100 mg 08/11/17 14:17 08/12/17 19:21 Colace - PO 100 mg Q8H PRN Administration CONSTIPATION Gabapentin 600 mg 08/11/17 14:00 08/15/17 06:20 Neurontin - PO 600 mg TID [facility] Administration Nf-Jadenu 360mg Tabs 2 each 08/12/17 10:00 08/15/17 09:20 PO 2 each DAILY [facility] Administration Oxycodone HCl 5 mg 08/14/17 19:47 08/15/17 09:56 Roxicodone - PO 5 mg Q6H PRN Administration Prednisone 5 mg 08/12/17 10:00 08/15/17 09:18 Deltasone - PO 5 mg DAILY [facility] Administration Senna 2 tab 08/12/17 07:42 Senna - PO HS PRN CONSTIPATION Sotalol HCl 80 mg 08/12/17 10:00 08/15/17 09:18 Betapace - PO 80 mg BID [facility] Administration Tamsulosin HCl 0.4 mg 08/12/17 08:30 08/15/17 09:18 Flomax - PO 0.4 mg DAILY@0830 [facility] Administration 72 y/o patient with myeloproliferative disorder, on anagrelide Here for transfusions also noted to have back pain-- CT L spine shows L1 vertebral compression fx Appreciate NSG/Neuro c/s/PT eval pain control TLSO brace need a Lumbar spine Xray in ONE week as per NSG ( 08/22/2017 ) for [facility] today. PRBCs prior to d/c ALL the meds to be continued including anagrelide/Jadenu/Asa/pred/Atovoquone and others 08/29/2017 1130- follow-up in office.
--- NOTE | 2017-08-15 15:18 | DS ---
Physical Examination Vital Signs: Vital Signs Temperature 97.9 F 08/15/17 15:00 Pulse Rate 86 08/15/17 15:00 Respiratory Rate 20 08/15/17 15:00 Blood Pressure 115/63 08/15/17 15:00 O2 Sat by Pulse Oximetry (%) 96 08/14/17 09:00 Labs: CBC, BMP 08/14/17 09:35 08/13/17 06:30 Discharge Summary Reason For Visit: OSTEOMYELOFIBROSIS Current Active Problems Compression fracture of L1 lumbar vertebra (Acute) Hospital Course: 72 y/o patient with myeloproliferative disorder, on anagrelide Here for transfusions also noted to have back pain-- CT L spine shows L1 vertebral compression fx Appreciate NSG/Neuro c/s/PT eval pain control TLSO brace need a Lumbar spine Xray in ONE week as per NSG ( 08/22/2017 ) for [facility] today. PRBCs prior to d/c ALL the meds to be continued including anagrelide/Jadenu/Asa/pred/Atovoquone and others 08/29/2017 1130- follow-up in office. Condition: Fair - Instructions Disposition: [facility]ILITY - Home Medications Comprehensive Discharge Medication List: Ambulatory Orders Tamsulosin HCl 0.4 mg PO DAILY 08/31/12 Anagrelide HCl [Agrylin -] 1 mg PO BID 04/11/14 Aspirin [ASA -] 81 mg PO DAILY 04/11/14 Deferasirox [Jadenu] 720 mg OD DAILY 07/12/16 Sotalol HCl [Betapace -] 80 mg PO BID@0800,2000 #60 tablet 07/14/16 Omeprazole 20 mg PO DAILY 08/17/16 Prednisone 5 mg PO DAILY 08/17/16 Atovaquone 1,500 mg PO DAILY 10/17/16 Amlodipine Besylate [Norvasc -] 5 mg PO DAILY 02/28/17 Gabapentin 600 mg PO BID 04/25/17
[2017-08-15 18:35] VITALS: BP 131/66; PULSE 85; TEMP 98.3
== END 2017-08-15 20:51 | DRG 552 ==
LOC: JONCBLOOD 10:14 → J7W 10:14
PROVIDERS: ADMIT Internal Medicine Hematology & Oncology; ATTEND Internal Medicine Hematology & Oncology
PROC: 30233N1 Transfusion of Nonautologous Red Blood Cells into Peripheral Vein, Percutaneous Approach (ICD-10-PCS; principal; 2017-08-10)
DX: S32.010A Wedge compression fracture of first lumbar vertebra, initial encounter for closed fracture (principal); D47.4 Osteomyelofibrosis; D46.9 Myelodysplastic syndrome, unspecified; J44.9 Chronic obstructive pulmonary disease, unspecified; I10 Essential (primary) hypertension; K40.90 Unilateral inguinal hernia, without obstruction or gangrene, not specified as recurrent; M51.37 Other intervertebral disc degeneration, lumbosacral region; I48.0 Paroxysmal atrial fibrillation; M54.5 Low back pain; Z87.891 Personal history of nicotine dependence; G54.4 Lumbosacral root disorders, not elsewhere classified; X58.XXXA Exposure to other specified factors, initial encounter; Y93.89 Activity, other specified; Y92.098 Other place in other non-institutional residence as the place of occurrence of the external cause
CPT/HCPCS: 36415; 36430; 36511; 72131-TC; 80048; 80053; 80076; 85025; 85027; 86850; 86900; 86901; 86922; 93005; 93010; 97116-GP; 97161-GP; P9038; P9058

== ENCOUNTER 2017-09-18 22:06 | Observation (INO) | payer OTHER, BC ==
--- NOTE | 2017-09-18 22:38 | PDOC ---
History of Present Illness - General History Source: Patient Exam Limitations: No Limitations - History of Present Illness Initial Comments: 09/18/17 22:33 The patient is a 72M with a PMH of myelodysplastic disorder and HTN who presents to the ER from [facility] stating he requires a transfusion. The patient states that he fractured one of his vertebrae and he's at [facility] for rehab. He says that they take his blood once a week to check for hgb levels. He says that on their last draw, his hgb was in the 6's which is very low for him so he came to the ER. He denies any complaints including palpitations, lightheadedness, SOB. <Ethan Dumont - Last Filed: 09/19/17 03:22> <China Mittal - Last Filed: 09/19/17 07:02> - General Chief Complaint: Revisit, Lab Variance Stated Complaint: REVISIT, ABNORMAL LABS Time Seen by Provider: 09/18/17 22:11 Past History - Past Medical History Anemia: Yes Asthma: No Cancer: Yes (Blood (MDS)) Cardiac Disorders: Yes CVA: No COPD: Yes CHF: No DVT: No Dementia: No Diabetes: No GI Disorders: No Disorders: No HTN: Yes Hypercholesterolemia: No Liver Disease: No Seizures: No Thyroid Disease: No - Surgical History Abdominal Surgery: Yes (RT INGUINAL HERNIA) Appendectomy: No Cardiac Surgery: No Cholecystectomy: No Lung Surgery: No Neurologic Surgery: No Orthopedic Surgery: No - Suicide/Smoking/Psychosocial Hx Smoking Status: Yes Smoking History: Never smoked Have you smoked in the past 12 months: No Number of Cigarettes Smoked Daily: 0 If you are a former smoker, when did you quit?: 1 YR Information on smoking cessation initiated: No 'Breaking Loose' booklet given: 08/17/16 Hx Alcohol Use: No Drug/Substance Use Hx: No Substance Use Type: None Hx Substance Use Treatment: No <Ethan Dumont - Last Filed: 09/19/17 03:22> <China Mittal - Last Filed: 09/19/17 07:02> - Past Medical History Allergies/Adverse Reactions: Allergies Allergy/AdvReac Type Severity Reaction Status Date / Time No Known Allergies Allergy Verified 09/18/17 22:19 Home Medications: Ambulatory Orders Tamsulosin HCl 0.4 mg PO DAILY 08/31/12 Anagrelide HCl [Agrylin -] 1 mg PO BID 04/11/14 Aspirin [ASA -] 81 mg PO DAILY 04/11/14 Deferasirox [Jadenu] 720 mg OD DAILY 07/12/16 Sotalol HCl [Betapace -] 80 mg PO BID@0800,2000 #60 tablet 07/14/16 Omeprazole 20 mg PO DAILY 08/17/16 Prednisone 5 mg PO DAILY 08/17/16 Atovaquone 1,500 mg PO DAILY 10/17/16 Amlodipine Besylate [Norvasc -] 5 mg PO DAILY 02/28/17 Gabapentin 600 mg PO BID 04/25/17 Review of Systems - Review of Systems Able to Perform ROS?: Yes Comments:: 09/19/17 00:37 GENERAL/CONSTITUTIONAL: No fever or chills. No weakness. HEAD, EYES, EARS, NOSE AND THROAT: No change in vision. No ear pain or discharge. No sore throat. CARDIOVASCULAR: No chest pain, palpitations, or lightheadedness. RESPIRATORY: No cough, wheezing, shortness of breath, or hemoptysis. GASTROINTESTINAL: No nausea, vomiting, diarrhea, constipation, or abdominal pain. GENITOURINARY: No dysuria, frequency, hematuria, or change in urination. MUSCULOSKELETAL: No joint or muscle swelling or pain. No neck or back pain. SKIN: No rash or lesions. NEUROLOGIC: No headache, numbness, tingling, weakness, loss of consciousness, or change in strength/sensation. ENDOCRINE: No increased thirst. No abnormal weight change. HEMATOLOGIC/LYMPHATIC: Positive for anemia. No easy bleeding or history of blood clots. ALLERGIC/IMMUNOLOGIC: No hives or skin allergy. Is the patient limited Malay proficient: No <Ethan Dumont - Last Filed: 09/19/17 03:22> *Physical Exam - Vital Signs Last Vital Signs Temp Pulse Resp BP Pulse Ox 98.7 F 89 14 135/66 96 09/18/17 22:19 09/18/17 22:19 09/18/17 22:19 09/18/17 22:19 09/18/17 22:19 - Physical Exam Comments: 09/19/17 00:37 GENERAL: Well developed, well nourished. Awake and alert. No acute distress. In spinal brace. HEENT: Normocephalic, atraumatic. Hearing grossly normal. Moist mucous membranes. PERRLA, EOMI. No conjunctival pallor. Sclera are non-icteric. NECK: Supple. Full ROM. No JVD. CARDIOVASCULAR: Regular rate and rhythm. No murmurs, rubs, or gallops. PULMONARY: No evidence of respiratory distress. Lungs clear to auscultation bilaterally. No wheezing, rales or rhonchi. ABDOMINAL: Soft. Non-tender. Non-distended. No rebound or guarding. GENITOURINARY: No CVA tenderness bilaterally. MUSCULOSKELETAL: Normal range of motion at all joints. No bony deformities or tenderness. EXTREMITIES: No cyanosis. No clubbing. No edema. No calf tenderness. SKIN: Warm and dry. Normal capillary refill. No rashes. No jaundice. NEUROLOGICAL: Alert, awake, appropriate. Cranial nerves 2-12 intact. Normal speech. Gait is normal without ataxia. PSYCHIATRIC: Cooperative. Good eye contact. Appropriate mood and affect. <Ethan Dumont - Last Filed: 09/19/17 03:22> - Vital Signs Last Vital Signs Temp Pulse Resp BP Pulse Ox 98.5 F 77 15 128/66 98 09/19/17 06:33 09/19/17 06:33 09/19/17 06:33 09/19/17 06:33 09/19/17 06:33 <China Mittal - Last Filed: 09/19/17 07:02> Heart Score/ECG Review #1 09/19/17 07:01 Twelve-lead EKG was performed and reviewed by me. Normal sinus rhythm, rate 82. Normal axis and intervals. No ST elevations. <China Mittal - Last Filed: 09/19/17 07:02> ED Treatment Course - LABORATORY CBC & Chemistry Diagram: 09/19/17 00:50 09/19/17 00:50 <Ethan Dumont - Last Filed: 09/19/17 03:22> - LABORATORY CBC & Chemistry Diagram: 09/19/17 00:50 09/19/17 00:50 - ADDITIONAL ORDERS Additional order review: Laboratory Results 09/19/17 09/19/17 09/19/17 00:50 00:50 00:50 PT with INR 14.40 H INR 1.27 H PTT (Actin FS) 27.4 D Sodium 146 H Potassium 4.4 Chloride 107 Carbon Dioxide 26 Anion Gap 13 BUN 20 H Creatinine 0.9 Creat Clearance w eGFR > 60 Random Glucose 88 Calcium 8.8 Magnesium 1.8 Total Bilirubin 1.7 H D AST 7 L D ALT 11 L Alkaline Phosphatase 59 Total Protein 6.3 L Albumin 4.2 Blood Type B POSITIVE Antibody Screen Negative Crossmatch See Detail 09/19/17 00:50 RBC 2.27 L D MCV 85.6 MCHC 30.6 L RDW 25.8 H MPV 10.5 Neutrophils % No Result Required. Lymphocytes % No Result Required. - RADIOLOGY Radiology Studies Ordered: Category Date Time Status CHEST PA & LAT [RAD] Stat Radiology 09/19/17 00:11 Taken <China Mittal - Last Filed: 09/19/17 07:02> Medical Decision Making - Medical Decision Making 09/19/17 00:37 The patient is a 72 M with a PMH of MDS who presents after having a low Hgb at his rehab facility. Pending labs and possible transfusion. 09/19/17 01:54 Hgb 5.9. 2 units PRBC's ordered. 09/19/17 03:23 Pt endorsed to [facility]. <Ethan Dumont - Last Filed: 09/19/17 03:22> *DC/Admit/Observation/Transfer - Discharge Dispostion Admit: Yes <Ethan Dumont - Last Filed: 09/19/17 03:22> <China Mittal - Last Filed: 09/19/17 07:02> Diagnosis at time of Disposition: MDS (myelodysplastic syndrome) - Discharge Dispostion Condition at time of disposition: Guarded
--- NOTE | 2017-09-19 00:45 | PDOC ---
Attending Attestation - HPI HPI: 09/19/17 02:23 The patient is a 72 year old male with history of MDS sent from [facility] for transfusions for anemia noted today. The patient reports his last blood draw demonstrated Hg in the low 6.s. On evaluation, the patient denies any chest pain , palpitations, shortness of breath, or lightheadedness. He denies any other physical complaint. - Physicial Exam PE: 09/19/17 02:26 GENERAL: Awake, alert, and fully oriented, in no acute distress HEAD: No signs of trauma EYES: PERRLA, EOMI, sclera anicteric, conjunctiva clear ENT: Auricles normal inspection, hearing grossly normal, nares patent, oropharynx clear without exudates. Moist mucosa NECK: Normal ROM, supple, no lymphadenopathy, JVD, or masses LUNGS: Breath sounds equal, clear to auscultation bilaterally. No wheezes, and no crackles HEART: Regular rate and rhythm, normal S1 and S2, no murmurs, rubs or gallops ABDOMEN: Soft, nontender, normoactive bowel sounds. No guarding, no rebound. No masses EXTREMITIES: Normal range of motion, no edema. No clubbing or cyanosis. No cords, erythema, or tenderness BACK: No midline spinal tenderness in cervical/thoracic/lumbar region NEUROLOGICAL: Normal speech, cranial nerves intact, negative pronator drift, 5/ 5 strength in all 4 extremities, normal sensation to light touch in all 4 extremities, normal cerebellar exam, normal gait, normal reflexes and tone SKIN: Warm, Dry, normal turgor, no rashes or lesions noted. - Medical Decision Making 09/19/17 02:29 Documentation prepared by Wendy Celeste, acting as medical dir for China Mittal MD. <Wendy Celeste - Last Filed: 09/19/17 02:23> - Resident Resident Name: Ethan Dumont - ED Attending Attestation I have performed the following: I have examined & evaluated the patient, The case was reviewed & discussed with the resident, I agree w/resident's findings & plan, Exceptions are as noted - Medical Decision Making 09/19/17 00:42 72-year-old male with MDS, transfusion dependent presents emergency Department with hemoglobin of 6.1. Vitals unremarkable. Exam unremarkable. Will repeat labs and transfuse/admit to observation if necessary 09/19/17 03:35 HGB 5.9, pt ordered for 2 units, admitted to Dr. Gardner for further management. Case discussed in detail with admitting physician including history, physical exam and ancillary studies. Admitting physician has assumed care for the patient, will follow all pending diagnostics and will complete the evaluation and treatment. <China Mittal - Last Filed: 09/19/17 03:43>
[2017-09-19 01:05] LABS: HEMATOCRIT 19.4 % (35.4-49); MCH 26.2 pg (25.7-33.7); MCHC 30.6 g/dl (32.0-35.9); MEAN CELL VOLUME 85.6 fl (80-96); MEAN PLT VOLUME 10.5 fl (7.5-11.1); PLATELET COUNT 338 K/MM3 (134-434); RBC 2.27 M/mm3 (4.00-5.60); RDW 25.8 % (11.9-15.9)
[2017-09-19 01:20] LABS: INR 1.27 (0.82-1.09); PROTHROMBIN TIME (PATIENT) 14.4 SEC (9.98-11.88)
[2017-09-19 01:23] LABS: ACTIVATED PTT 27.4 SECONDS (26.9-34.4)
[2017-09-19 01:25] LABS: HEMOGLOBIN 5.9 GM/dL (11.7-16.9)
[2017-09-19 01:38] LABS: ALBUMIN 4.2 g/dl (3.4-5.0); ANION GAP 13 (8-16); BILIRUBIN,TOTAL 1.7 mg/dL (0.2-1.0); BLOOD UREA NITROGEN 20 mg/dL (7-18); CALCIUM 8.8 mg/dL (8.5-10.1); CHLORIDE 107 mmol/L (98-107); CO2 26 mmol/L (21-32); CREATININE 0.9 mg/dL (0.7-1.3); GLUCOSE,RANDOM 88 mg/dL (74-106); MAGNESIUM 1.8 mg/dL (1.8-2.4); POTASSIUM 4.4 mmol/L (3.5-5.1); SGOT/AST 7 U/L (15-37); SGPT/ALT 11 U/L (12-78); SODIUM 146 mmol/L (136-145); TOT PROT 6.3 g/dl (6.4-8.2)
[2017-09-19 01:39] LABS: ALK PHOS 59 U/L (45-117)
--- NOTE | 2017-09-19 04:18 | HP ---
CHIEF COMPLAINT: low hemoglobin PCP: Ela Mosquera [facility] [place] HISTORY OF PRESENT ILLNESS: This is a 72 year old male with a significant past medical history of myelodysplastic disorder who presented to the ED with a low hemoglobin from his STR facility. He is there for a L1 fracture. Pt with no acute complaints on exam. He reports this is the lowest his Hgb has been since he has been receiving transfusions. ER course was notable for: (1) Hgb 5.9 Recent Travel: pt denies PAST MEDICAL HISTORY: myelodysplastic d/o, HTN, L1 fracture, BPH PAST SURGICAL HISTORY: R inguinal hernia repair 1960s L cataract surgery Social History: Smoking: quit 1 year ago, smoked 5-6 cig/day since age 13 Alcohol: pt denies Drugs: pt denies Family History: mother age 85, alzheimers disease father "young", "heat stroke" brother with HTN Allergies No Known Allergies Allergy (Verified 09/18/17 22:19) HOME MEDICATIONS: 3 Medication Instructions Recorded Tamsulosin HCl 0.4 mg PO DAILY 08/31/12 Anagrelide HCl [Agrylin -] 1 mg PO BID 04/11/14 Aspirin [ASA -] 81 mg PO DAILY 04/11/14 Deferasirox [Jadenu] 720 mg OD DAILY 07/12/16 Sotalol HCl [Betapace -] 80 mg PO BID@0800,2000 #60 tablet 07/14/16 Omeprazole 20 mg PO DAILY 08/17/16 Prednisone 2.5 mg PO DAILY 08/17/16 Atovaquone 1,500 mg PO DAILY 10/17/16 Amlodipine Besylate [Norvasc -] 5 mg PO DAILY 02/28/17 Gabapentin 600 mg PO BID 04/25/17 fosamax 35mg po every Monday calcium/vitamin D 500mg/400u po BID icy hot patch 1 patch to low back REVIEW OF SYSTEMS CONSTITUTIONAL: Absent: fever, chills, diaphoresis, generalized weakness, malaise, loss of appetite, weight change HEENT: Absent: rhinorrhea, nasal congestion, throat pain, throat swelling, difficulty swallowing, mouth swelling, ear pain, eye pain, visual changes CARDIOVASCULAR: Absent: chest pain, syncope, palpitations, irregular heart rate, lightheadedness , peripheral edema RESPIRATORY: Absent: cough, shortness of breath, dyspnea with exertion, orthopnea, wheezing, stridor, hemoptysis GASTROINTESTINAL: Absent: abdominal pain, abdominal distension, nausea, vomiting, diarrhea, constipation, melena, hematochezia GENITOURINARY: Absent: dysuria, frequency, urgency, hesitancy, hematuria, flank pain, genital pain MUSCULOSKELETAL: Absent: myalgia, arthralgia, joint swelling, back pain, neck pain SKIN: Absent: rash, itching, pallor HEMATOLOGIC/IMMUNOLOGIC: Absent: easy bleeding, easy bruising, lymphadenopathy, frequent infections ENDOCRINE: Absent: unexplained weight gain, unexplained weight loss, heat intolerance, cold intolerance NEUROLOGIC: Absent: headache, focal weakness or paresthesias, dizziness, unsteady gait, seizure, mental status changes, bladder or bowel incontinence PSYCHIATRIC: Absent: anxiety, depression, suicidal or homicidal ideation, hallucinations. PHYSICAL EXAMINATION Vital Signs - 24 hr 3 09/18/17 22:19 Temperature 98.7 F Pulse Rate 89 Respiratory 14 Rate Blood Pressure 135/66 O2 Sat by Pulse 96 Oximetry (%) GENERAL: Awake, alert, and fully oriented, in no acute distress. HEAD: Normal with no signs of trauma. EYES: Pupils equal, round and reactive to light, extraocular movements intact, sclera anicteric, conjunctiva clear, pale. No lid lag. EARS, NOSE, THROAT: Ears normal, nares patent, oropharynx clear without exudates. Moist mucous membranes. NECK: Normal range of motion, supple without lymphadenopathy, JVD, or masses. LUNGS: Breath sounds equal, clear to auscultation bilaterally. No wheezes, and no crackles. No accessory muscle use. HEART: Regular rate and rhythm, normal S1 and S2 without murmur, rub or gallop. ABDOMEN: Soft, nontender, not distended, normoactive bowel sounds, no guarding, no rebound, no masses. No hepatomegaly or splenomegaly. MUSCULOSKELETAL: Normal range of motion at all joints. No bony deformities or tenderness. No CVA tenderness. UPPER EXTREMITIES: 2+ pulses, warm, well-perfused. No cyanosis. No clubbing. No peripheral edema. LOWER EXTREMITIES: 2+ pulses, warm, well-perfused. No calf tenderness. No peripheral edema. NEUROLOGICAL: Cranial nerves II-XII intact. Normal speech. Normal gait. PSYCHIATRIC: Cooperative. Good eye contact. Appropriate mood and affect. SKIN: Warm, dry, normal turgor, no rashes or lesions noted, normal capillary refill. Slightly pale Laboratory Results - last 24 hr 3 09/19/17 09/19/17 09/19/17 00:50 00:50 00:50 WBC 16.0 H RBC 2.27 L D Hgb 5.9 L* D Hct 19.4 L D MCV 85.6 MCH 26.2 MCHC 30.6 L RDW 25.8 H Plt Count 338 D MPV 10.5 Neutrophils % No Result Required. Lymphocytes % No Result Required. PT with INR 14.40 H INR 1.27 H PTT (Actin FS) 27.4 D Sodium Potassium Chloride Carbon Dioxide Anion Gap BUN Creatinine Creat Clearance w eGFR Random Glucose Calcium Magnesium Total Bilirubin AST ALT Alkaline Phosphatase Total Protein Albumin Blood Type B POSITIVE Antibody Screen Negative Crossmatch See Detail 3 09/19/17 00:50 WBC RBC Hgb Hct MCV MCH MCHC RDW Plt Count MPV Neutrophils % Lymphocytes % PT with INR INR PTT (Actin FS) Sodium 146 H Potassium 4.4 Chloride 107 Carbon Dioxide 26 Anion Gap 13 BUN 20 H Creatinine 0.9 Creat Clearance w eGFR > 60 Random Glucose 88 Calcium 8.8 Magnesium 1.8 Total Bilirubin 1.7 H D AST 7 L D ALT 11 L Alkaline Phosphatase 59 Total Protein 6.3 L Albumin 4.2 Blood Type Antibody Screen Crossmatch ASSESSMENT/PLAN: 72yM with PMH myelodysplastic d/o, HTN, L1 fracture, BPH presented with low H/H. anemia secondary to myelodysplastic disease - transfuse 2uPRBC - CBC after transfusions complete - heme consult HTN - cont home norvasc, betapace BPH - cont home flomax DVT PPX - deferred, anticipated LOS <48h FEN - tolerating po - BMP ok - low sodium diet Dispo: Pt currently requires further observation for receipt of 2u PRBC. Visit type - Emergency Visit Emergency Visit: Yes ED Registration Date: 09/18/17 Care time: The patient presented to the Emergency Department on the above date and was hospitalized for further evaluation of their emergent condition. - New Patient This patient is new to me today: Yes Date on this admission: 09/19/17 - Critical Care Critical Care patient: No
[2017-09-19 04:39] LABS: ANISOCYTOSIS 3+; MACROCYTOSIS 1+; PLATELET ESTIMATE NORMAL; TARGET CELLS 1+
[2017-09-19] MEDS: SOTALOL HCL 80 MG TABLET (FP) PO SCH ×2 (08:47→20:48)
[2017-09-19] MEDS: TAMSULOSIN HCL 0.4 MG CAP.ER.24H (FP) PO SCH (08:47)
[2017-09-19] MEDS: predniSONE 5 MG TABLET (UD) PO SCH (09:54)
[2017-09-19] MEDS: GABAPENTIN 300 MG CAPSULE (FP) PO SCH ×2 (09:54→21:17)
[2017-09-19] MEDS: ASPIRIN 81 MG CHEWABLE TABLETS PO SCH (09:54)
[2017-09-19] MEDS: ANAGRELIDE HCL 1 MG PO SCH ×2 (09:54→22:35)
[2017-09-19] MEDS: amLODIPine BESYLATE 5 MG TABLET (FP) PO SCH (09:54)
[2017-09-19] MEDS: ATOVAQUONE 750 MG/5 ML (UNIT-DOSE PACKAGING) PO SCH (09:54)
[2017-09-19] MEDS: PANTOPRAZOLE 20 MG TABLET (FP) PO SCH (09:54)
[2017-09-19] MEDS: CALCIUM 500MG/VIT-D 200 UNITS COMBO TABLET (FP) PO SCH ×2 (09:54→21:17)
--- NOTE | 2017-09-19 11:10 | PN ---
Progress Note, Physician Chief Complaint: admitted for low hgb s/p one unit prbc - Current Medication List Current Medications: Active Medications Amlodipine Besylate (Norvasc -) 5 mg PO DAILY [facility] Last Admin: 09/19/17 09:54 Dose: 5 mg Anagrelide HCl (Agrylin) 1 mg PO BID [facility] Last Admin: 09/19/17 09:54 Dose: 1 mg Aspirin (Asa -) 81 mg PO DAILY [facility] Last Admin: 09/19/17 09:54 Dose: 81 mg Atovaquone (Mepron -) 1,500 mg PO DAILY [facility] Last Admin: 09/19/17 09:54 Dose: 1,500 mg Calcium Carbonate/Cholecalciferol (Os-Kristopher 500+D -) 1 tab PO BID [facility] Last Admin: 09/19/17 09:54 Dose: 1 tab Gabapentin (Neurontin -) 600 mg PO BID [facility] Last Admin: 09/19/17 09:54 Dose: 600 mg Non-Formulary Medication (Deferasirox [Jadenu]) 720 mg OD DAILY [facility] Pantoprazole Sodium (Protonix -) 20 mg PO DAILY [facility] Last Admin: 09/19/17 09:54 Dose: 20 mg Prednisone (Deltasone -) 2.5 mg PO DAILY [facility] Last Admin: 09/19/17 09:54 Dose: 2.5 mg Sotalol HCl (Betapace -) 80 mg PO BID@0800,2000 [facility] Last Admin: 09/19/17 08:47 Dose: 80 mg Tamsulosin HCl (Flomax -) 0.4 mg PO DAILY@0830 [facility] Last Admin: 09/19/17 08:47 Dose: 0.4 mg - Objective Vital Signs: Vital Signs Temperature 98.4 F 09/19/17 07:48 Pulse Rate 80 09/19/17 07:48 Respiratory Rate 18 09/19/17 07:48 Blood Pressure 123/50 09/19/17 07:48 O2 Sat by Pulse Oximetry (%) 100 09/19/17 07:48 Constitutional: Yes: Calm Cardiovascular: Yes: Murmur, S1, S2 Respiratory: Yes: CTA Bilaterally Gastrointestinal: Yes: Normal Bowel Sounds, Soft Edema: No Neurological: Yes: Alert, Oriented Labs: CBC, BMP 09/19/17 00:50 09/19/17 00:50 INR, PTT INR 1.27 (0.82-1.09) H 09/19/17 00:50 Problem List - Problems (1) Anemia Assessment/Plan: recheck cbc transfuse one more unit heme eval Code(s): D64.9 - ANEMIA, UNSPECIFIED Qualifiers: (2) MDS (myelodysplastic syndrome) Assessment/Plan: heme eval on Agrylin Code(s): D46.9 - MYELODYSPLASTIC SYNDROME, UNSPECIFIED (3) Paroxysmal atrial fibrillation Assessment/Plan: sotalol Code(s): I48.0 - PAROXYSMAL ATRIAL FIBRILLATION (4) Compression fracture of L1 lumbar vertebra Assessment/Plan: getting rheba at [facility] doesnot want to go back there wants another snf PT eval [facility] Code(s): S32.010A - WEDGE COMPRESSION FRACTURE OF FIRST LUMBAR VERTEBRA, INIT Qualifiers: Encounter type: initial encounter Fracture type: closed Qualified Code(s) : S32.010A - Wedge compression fracture of first lumbar vertebra, initial encounter for closed fracture
--- NOTE | 2017-09-19 13:55 | PN ---
Progress Note (short form) - Note Progress Note: Pt seen and examined. Was sent for PRBCs from [facility]. O/E: HEENT: VIVIAN, EOM Intact Oropharynx: No thrush, No mucositis Neck: Supple Cor: RSR, No murmurs, No gallops Lungs: Clear to P&A Abd: Soft, Normal bowel sounds, No organomegaly Ext:No significant edema Last Vital Signs Temp Pulse Resp BP Pulse Ox 98.8 F 84 20 120/70 98 09/19/17 13:05 09/19/17 13:05 09/19/17 13:05 09/19/17 13:05 09/19/17 13:05 CBC, BMP 09/19/17 00:50 09/19/17 00:50 Current Medications Generic Name Dose Route Start Last Admin Trade Name Freq PRN Reason Stop Dose Admin Amlodipine Besylate 5 mg 09/19/17 10:00 09/19/17 09:54 Norvasc - PO 5 mg DAILY ABBY Administration Anagrelide HCl 1 mg 09/19/17 10:00 09/19/17 09:54 Agrylin PO 1 mg BID ABBY Administration Aspirin 81 mg 09/19/17 10:00 09/19/17 09:54 Asa - PO 81 mg DAILY ABBY Administration Atovaquone 1,500 mg 09/19/17 10:00 09/19/17 09:54 Mepron - PO 1,500 mg DAILY ABBY Administration Calcium Carbonate/Cholecalciferol 1 tab 09/19/17 10:00 09/19/17 09:54 Os-Kristopher 500+D - PO 1 tab BID ABBY Administration Gabapentin 600 mg 09/19/17 10:00 09/19/17 09:54 Neurontin - PO 600 mg BID ABBY Administration Non-Formulary Medication 720 mg 09/19/17 10:00 Deferasirox [Jadenu] OD DAILY ABBY Pantoprazole Sodium 20 mg 09/19/17 10:00 09/19/17 09:54 Protonix - PO 20 mg DAILY ABBY Administration Prednisone 2.5 mg 09/19/17 10:00 09/19/17 09:54 Deltasone - PO 2.5 mg DAILY ABBY Administration Sotalol HCl 80 mg 09/19/17 08:00 09/19/17 08:47 Betapace - PO 80 mg BID@0800,2000 ABBY Administration Tamsulosin HCl 0.4 mg 09/19/17 08:30 09/19/17 08:47 Flomax - PO 0.4 mg DAILY@0830 ABBY Administration 72 y/o patient with myeloproliferative disorder, on anagrelide -repeat CBC -s/p 2U PRBCs -c.w jadenu and anagrelide. -c/w Asa/pred/Atovoquone h/o L1 fracture TLSO brace as per him doing well at rehab. seen NS[facility] as an OP. Dispo: he has told me though the facility is not his favorite, but he does think that the therapist really helping him and would like to go back. But he wanted to discuss certain logistics with CCM. CCM consulted prior for OP f/u
[2017-09-19 14:10] VITALS: BMI 23.5
--- NOTE | 2017-09-19 16:41 | EKG ---
Test Reason : Blood Pressure : / mmHG Vent. Rate : 082 BPM Atrial Rate : 082 BPM P-R Int : 168 ms QRS Dur : 084 ms QT Int : 398 ms P-R-T Axes : 041 015 048 degrees QTc Int : 464 ms POOR DATA QUALITY, INTERPRETATION MAY BE ADVERSELY AFFECTED NORMAL SINUS RHYTHM NORMAL ECG WHEN COMPARED WITH ECG OF 12-AUG-2017 12:38, PREMATURE ATRIAL COMPLEXES ARE NO LONGER PRESENT Confirmed by MD Abner, Kb ([id number]) on 09/19/2017 4:40:42 PM Referred By: Confirmed By:Kb Levine MD
[2017-09-19 17:31] LABS: HEMATOCRIT 22.7 % (35.4-49); HEMOGLOBIN 7.3 GM/dL (11.7-16.9); MCH 27.6 pg (25.7-33.7); MCHC 32.3 g/dl (32.0-35.9); MEAN CELL VOLUME 85.4 fl (80-96); MEAN PLT VOLUME 10.9 fl (7.5-11.1); PLATELET COUNT 386 K/MM3 (134-434); RBC 2.65 M/mm3 (4.00-5.60); RDW 19.7 % (11.9-15.9); WHITE BLOOD COUNT 17.3 K/mm3 (4.0-10.0)
[2017-09-19 20:59] LABS: SMUDGE CELLS FEW
[2017-09-19 21:00] LABS: ANISOCYTOSIS 1+; PLATELET ESTIMATE ADEQUATE
[2017-09-20 07:32] LABS: HEMATOCRIT 25.9 % (35.4-49); HEMOGLOBIN 8.6 GM/dL (11.7-16.9); MCH 27.5 pg (25.7-33.7); MCHC 33.1 g/dl (32.0-35.9); MEAN CELL VOLUME 83.1 fl (80-96); MEAN PLT VOLUME 9.9 fl (7.5-11.1); RBC 3.11 M/mm3 (4.00-5.60); RDW 17.6 % (11.9-15.9); WHITE BLOOD COUNT 15.3 K/mm3 (4.0-10.0)
--- NOTE | 2017-09-20 07:35 | PN ---
Progress Note, Physician History of Present Illness: feels better no cp - Current Medication List Current Medications: Active Medications Amlodipine Besylate (Norvasc -) 5 mg PO DAILY [facility] Last Admin: 09/19/17 09:54 Dose: 5 mg Anagrelide HCl (Agrylin) 1 mg PO BID [facility] Last Admin: 09/19/17 22:35 Dose: 1 mg Aspirin (Asa -) 81 mg PO DAILY [facility] Last Admin: 09/19/17 09:54 Dose: 81 mg Atovaquone (Mepron -) 1,500 mg PO DAILY [facility] Last Admin: 09/19/17 09:54 Dose: 1,500 mg Calcium Carbonate/Cholecalciferol (Os-Kristopher 500+D -) 1 tab PO BID [facility] Last Admin: 09/19/17 21:17 Dose: 1 tab Gabapentin (Neurontin -) 600 mg PO BID [facility] Last Admin: 09/19/17 21:17 Dose: 600 mg Non-Formulary Medication (Deferasirox [Jadenu]) 720 mg OD DAILY [facility] Pantoprazole Sodium (Protonix -) 20 mg PO DAILY [facility] Last Admin: 09/19/17 09:54 Dose: 20 mg Prednisone (Deltasone -) 2.5 mg PO DAILY [facility] Last Admin: 09/19/17 09:54 Dose: 2.5 mg Sotalol HCl (Betapace -) 80 mg PO BID@0800,2000 [facility] Last Admin: 09/19/17 20:48 Dose: 80 mg Tamsulosin HCl (Flomax -) 0.4 mg PO DAILY@0830 [facility] Last Admin: 09/19/17 08:47 Dose: 0.4 mg - Objective Vital Signs: Vital Signs Temperature 98.8 F 09/20/17 06:00 Pulse Rate 77 09/20/17 06:00 Respiratory Rate 20 09/20/17 06:00 Blood Pressure 134/64 09/20/17 06:00 O2 Sat by Pulse Oximetry (%) 97 09/20/17 00:35 Cardiovascular: Yes: Regular Rate and Rhythm Respiratory: Yes: Regular, CTA Bilaterally Gastrointestinal: Yes: Normal Bowel Sounds, Soft. No: Tenderness Labs: CBC, BMP 09/19/17 00:50 INR, PTT INR 1.27 (0.82-1.09) H 09/19/17 00:50 Assessment/Plan - Problems (1) Anemia Assessment/Plan: recheck cbc transfuse one more unit heme eval noted Code(s): D64.9 - ANEMIA, UNSPECIFIED Qualifiers: (2) MDS (myelodysplastic syndrome) Assessment/Plan: heme eval on Agrylin Code(s): D46.9 - MYELODYSPLASTIC SYNDROME, UNSPECIFIED (3) Paroxysmal atrial fibrillation Assessment/Plan: sotalol Code(s): I48.0 - PAROXYSMAL ATRIAL FIBRILLATION (4) Compression fracture of L1 lumbar vertebra Assessment/Plan: getting Rehab at [facility] PT eval [facility] Code(s): S32.010A - WEDGE COMPRESSION FRACTURE OF FIRST LUMBAR VERTEBRA, INIT Qualifiers: Encounter type: initial encounter Fracture type: closed Qualified Code(s) : S32.010A - Wedge compression fracture of first lumbar vertebra, initial encounter for closed fracture
[2017-09-20] MEDS: PANTOPRAZOLE 20 MG TABLET (FP) PO SCH (10:13)
[2017-09-20] MEDS: ASPIRIN 81 MG CHEWABLE TABLETS PO SCH (10:13)
[2017-09-20] MEDS: CALCIUM 500MG/VIT-D 200 UNITS COMBO TABLET (FP) PO SCH (10:13)
[2017-09-20] MEDS: TAMSULOSIN HCL 0.4 MG CAP.ER.24H (FP) PO SCH (10:13)
[2017-09-20] MEDS: SOTALOL HCL 80 MG TABLET (FP) PO SCH (10:13)
[2017-09-20] MEDS: amLODIPine BESYLATE 5 MG TABLET (FP) PO SCH (10:14)
[2017-09-20] MEDS: GABAPENTIN 300 MG CAPSULE (FP) PO SCH (10:14)
[2017-09-20] MEDS: predniSONE 5 MG TABLET (UD) PO SCH (10:14)
[2017-09-20] MEDS ORDERED: PT OWN MED DRAWER 7, Y5N ONE (10:17)
[2017-09-20] MEDS: ATOVAQUONE 750 MG/5 ML (UNIT-DOSE PACKAGING) PO SCH (10:18)
[2017-09-20] MEDS: ANAGRELIDE HCL 1 MG PO SCH (10:18)
[2017-09-20 10:46] LABS: MACROCYTOSIS 1+; OVALOCYTE 1+; PLATELET ESTIMATE NORMAL
[2017-09-20 11:06] LABS: PLATELET COUNT 332 K/MM3 (134-434)
[2017-09-20 17:12] VITALS: BP 140/67; PULSE 84; TEMP 98.6
[2017-09-20] MEDS: DEFERASIROX 720 MG OD SCH (18:09)
== END 2017-09-20 17:52 ==
LOC: JER 22:06 → JERBED 09-19 03:23 → J8W 09-19 14:08
PROVIDERS: ADMIT Internal Medicine; ATTEND Family Medicine
PROC: 30233N1 Transfusion of Nonautologous Red Blood Cells into Peripheral Vein, Percutaneous Approach (ICD-10-PCS; principal; 2017-09-19)
DX: D46.9 Myelodysplastic syndrome, unspecified (principal); D63.0 Anemia in neoplastic disease; I10 Essential (primary) hypertension; N40.0 Benign prostatic hyperplasia without lower urinary tract symptoms; I48.0 Paroxysmal atrial fibrillation; S32.010D Wedge compression fracture of first lumbar vertebra, subsequent encounter for fracture with routine healing; X58.XXXD Exposure to other specified factors, subsequent encounter
CPT/HCPCS: 36415; 36430; 71046-TC-FY; 72100-TC-FY; 80053; 83735; 85025; 85610; 85730; 86850; 86900; 86901; 86922; 93005; 93010; 97116-GP; 97161-GP; 99284-25; G0378; P9038; P9058

== ENCOUNTER 2017-10-13 07:24 | Day surgery (SDC) | payer OTHER, BC ==
[2017-10-13] MEDS ORDERED: FUROSEMIDE 40 MG/4 ML INJECTABLE VIAL IVPUSH SCH (08:30)
[2017-10-13 10:03] LABS: HEMATOCRIT 20.7 % (35.4-49); MCH 27.1 pg (25.7-33.7); MCHC 31.3 g/dl (32.0-35.9); MEAN CELL VOLUME 86.6 fl (80-96); MEAN PLT VOLUME 10.1 fl (7.5-11.1); PLATELET COUNT 255 K/MM3 (134-434); RBC 2.39 M/mm3 (4.00-5.60); RDW 23.3 % (11.9-15.9); WHITE BLOOD COUNT 19.9 K/mm3 (4.0-10.0)
[2017-10-13 10:20] LABS: ALBUMIN 3.9 g/dl (3.4-5.0); ALK PHOS 77 U/L (45-117); ANION GAP 11 (8-16); BILIRUBIN,DIRECT 0.3 mg/dL (0.0-0.2); BLOOD UREA NITROGEN 13 mg/dL (7-18); CALCIUM 8.9 mg/dL (8.5-10.1); CHLORIDE 108 mmol/L (98-107); CO2 25 mmol/L (21-32); CREATININE 0.7 mg/dL (0.7-1.3); GLUCOSE,RANDOM 79 mg/dL (74-106); POTASSIUM 4.6 mmol/L (3.5-5.1); SGOT/AST 12 U/L (15-37); SGPT/ALT 7 U/L (12-78); SODIUM 144 mmol/L (136-145); TOT PROT 6.4 g/dl (6.4-8.2)
[2017-10-13 10:21] LABS: HEMOGLOBIN 6.5 GM/dL (11.7-16.9)
[2017-10-13] MEDS ORDERED: PORTA CATH FLUSH 10 ML IVPUSH ONE (11:33)
--- NOTE | 2017-10-13 12:36 | HP ---
[facility] - Chief Complaint History of Present Illness: Here for PRBCs. Pt seen and examined. d/c from rehab. Yet to see . Back pain still present, on brace. +fatigue History Source: Patient - Past Medical History Allergies/Adverse Reactions: Allergies Allergy/AdvReac Type Severity Reaction Status Date / Time No Known Allergies Allergy Verified 09/18/17 22:19 Cardiovascular: Yes: HTN Pulmonary: Yes: COPD Heme/Onc: Yes: Myeloproliferative Synd - Current Medications Current Medications: Home Medications Medication Instructions Recorded Tamsulosin HCl 0.4 mg PO DAILY 08/31/12 Anagrelide HCl [Agrylin -] 1 mg PO BID 04/11/14 Aspirin [ASA -] 81 mg PO DAILY 04/11/14 Deferasirox [Jadenu] 720 mg OD DAILY 07/12/16 Sotalol HCl [Betapace -] 80 mg PO BID@0800,2000 #60 tablet 07/14/16 Prednisone 2.5 mg PO DAILY 08/17/16 Atovaquone 1,500 mg PO DAILY 10/17/16 Amlodipine Besylate [Norvasc -] 5 mg PO DAILY 02/28/17 Gabapentin 600 mg PO BID 04/25/17 Acetaminophen [Acetaminophen ER] 650 mg PO Q6H PRN 09/19/17 Alendronate Na [Fosamax (Weekly)] 70 mg PO MO 09/19/17 Calcium Carbonate/Vitamin D3 2 tab PO DAILY 09/19/17 [Calcium 500-Vit D3 400 Tablet] Menthol [Icy Hot] 1 each TP DAILY 09/19/17 Satellite Physical Exam - Physical Examination Vital Signs: Vital Signs Period Temp Pulse Resp BP Sys/Paredes Pulse Ox Last 24 Hr 98 F-98.3 F 66-68 16-18 118-132/55-60 General Appearance: Well Developed, Alert & Oriented x3 ENT: No Discharge Heart: Regular rate & rhythm, Normal S1 Abdomen: Soft, No tenderness Extremities: No edema Neurological: Alert, Oriented Satellite Impression/Plan - Impression/Plan Impression: PRBCs X 2 today. will f/'u in office post PRBCS. with
[2017-10-13 20:42] LABS: HEMATOCRIT 27.4 % (35.4-49); HEMOGLOBIN 8.8 GM/dL (11.7-16.9); MCH 27.2 pg (25.7-33.7); MCHC 31.9 g/dl (32.0-35.9); MEAN CELL VOLUME 85.2 fl (80-96); MEAN PLT VOLUME 10.8 fl (7.5-11.1); PLATELET COUNT 266 K/MM3 (134-434); RBC 3.22 M/mm3 (4.00-5.60); RDW 19.8 % (11.9-15.9); WHITE BLOOD COUNT 22.7 K/mm3 (4.0-10.0)
[2017-10-13 22:31] LABS: ANISOCYTOSIS 1+; PLATELET ESTIMATE ADEQUATE; TARGET CELLS 1+
[2017-10-14 08:21] VITALS: BP 141/72; PULSE 80; TEMP 97.9
== END 2017-10-14 08:56 | disposition home or self-care (01) ==
LOC: JONCBLOOD 07:24 → J7W 08:04 → JONCBLOOD 10-14 08:56
PROVIDERS: ATTEND Internal Medicine Hematology & Oncology
PROC: 30233N1 Transfusion of Nonautologous Red Blood Cells into Peripheral Vein, Percutaneous Approach (ICD-10-PCS; principal; 2017-10-13)
DX: D46.9 Myelodysplastic syndrome, unspecified (principal)
CPT/HCPCS: 36415; 36430; 80048; 80076; 85025; 85027; 86850; 86900; 86901; 86922; 87177; 87209; 87324; 87449; P9038; P9058

== ENCOUNTER 2017-12-08 07:27 | Day surgery (SDC) | payer OTHER, BC ==
[2017-12-08] MEDS ORDERED: FUROSEMIDE 40 MG/4 ML INJECTABLE VIAL IVPUSH SCH (08:30)
[2017-12-08 08:59] LABS: HEMATOCRIT 19.1 % (35.4-49); HEMOGLOBIN 5.9 GM/dL (11.7-16.9); MCH 26.7 pg (25.7-33.7); MCHC 31.1 g/dl (32.0-35.9); MEAN CELL VOLUME 85.7 fl (80-96); MEAN PLT VOLUME 10.8 fl (7.5-11.1); PLATELET COUNT 492 K/MM3 (134-434); RBC 2.23 M/mm3 (4.00-5.60); RDW 37.4 % (11.9-15.9)
[2017-12-08 09:12] LABS: WHITE BLOOD COUNT 17.4 K/mm3 (4.0-10.0)
[2017-12-08 09:25] LABS: ANION GAP 8 (8-16); BLOOD UREA NITROGEN 12 mg/dL (7-18); CALCIUM 8.8 mg/dL (8.5-10.1); CHLORIDE 108 mmol/L (98-107); CO2 27 mmol/L (21-32); CREATININE 0.7 mg/dL (0.7-1.3); GLUCOSE,RANDOM 106 mg/dL (74-106); POTASSIUM 4.4 mmol/L (3.5-5.1); SODIUM 143 mmol/L (136-145)
--- NOTE | 2017-12-08 09:39 | HP ---
[facility]ellite H - Chief Complaint History of Present Illness: Patient with MPD/MDS. here for PRBCs. Seen in office this Monday.Pt seen and examined. Feels fatigue. History Source: Patient, Medical Record - Past Medical History Allergies/Adverse Reactions: Allergies Allergy/AdvReac Type Severity Reaction Status Date / Time No Known Allergies Allergy Verified 09/18/17 22:19 Cardiovascular: Yes: HTN Pulmonary: Yes: COPD Heme/Onc: Yes: Myeloproliferative Synd - Current Medications Current Medications: Home Medications Medication Instructions Recorded Tamsulosin HCl 0.4 mg PO DAILY 08/31/12 Anagrelide HCl [Agrylin -] 1 mg PO BID 04/11/14 Aspirin [ASA -] 81 mg PO DAILY 04/11/14 Deferasirox [Jadenu] 720 mg OD DAILY 07/12/16 Sotalol HCl [Betapace -] 80 mg PO BID@0800,2000 #60 tablet 07/14/16 Prednisone 2.5 mg PO DAILY 08/17/16 Atovaquone 1,500 mg PO DAILY 10/17/16 Amlodipine Besylate [Norvasc -] 5 mg PO DAILY 02/28/17 Gabapentin 600 mg PO BID 04/25/17 Acetaminophen [Acetaminophen ER] 650 mg PO Q6H PRN 09/19/17 Alendronate Na [Fosamax (Weekly)] 70 mg PO MO 09/19/17 Calcium Carbonate/Vitamin D3 2 tab PO DAILY 09/19/17 [Calcium 500-Vit D3 400 Tablet] Menthol [Icy Hot] 1 each TP DAILY 09/19/17 Satellite Physical Exam - Physical Examination General Appearance: Well Nourished, Alert & Oriented x3 ENT: No Discharge Lung: Clear to auscultation Heart: Regular rate & rhythm Abdomen: Soft Extremities: No edema Neurological: Alert, Oriented Satellite Impression/Plan - Impression/Plan Impression: for 2U PRBCs today. f/u in office post d/c
[2017-12-08 10:14] LABS: ALBUMIN 3.9 g/dl (3.4-5.0); BILIRUBIN,DIRECT 0.3 mg/dL (0.0-0.2); BILIRUBIN,TOTAL 0.9 mg/dL (0.2-1.0); TOT PROT 5.8 g/dl (6.4-8.2)
[2017-12-08 18:26] VITALS: PULSE 18
[2017-12-08 21:53] LABS: HEMATOCRIT 23.4 % (35.4-49); HEMOGLOBIN 7.6 GM/dL (11.7-16.9); MCH 27.6 pg (25.7-33.7); MCHC 32.3 g/dl (32.0-35.9); MEAN CELL VOLUME 85.4 fl (80-96); RBC 2.74 M/mm3 (4.00-5.60); RDW 29.7 % (11.9-15.9); WHITE BLOOD COUNT 15.6 K/mm3 (4.0-10.0)
[2017-12-08 22:51] LABS: MEAN PLT VOLUME 10.1 fl (7.5-11.1); PLATELET COUNT 393 K/MM3 (134-434)
[2017-12-09 09:01] LABS: BASO % 4.9 % (0-2.0); EOS % 2.8 % (0-4.5); HEMATOCRIT 26.3 % (35.4-49); HEMOGLOBIN 8.5 GM/dL (11.7-16.9); LYMPH % 13.2 % (8-40); MCH 27.6 pg (25.7-33.7); MCHC 32.5 g/dl (32.0-35.9); MEAN CELL VOLUME 84.8 fl (80-96); MEAN PLT VOLUME 9.8 fl (7.5-11.1); MONO % 2.8 % (3.8-10.2); NEUT % 76.3 % (42.8-82.8); RDW 25.8 % (11.9-15.9); WHITE BLOOD COUNT 18.4 K/mm3 (4.0-10.0)
[2017-12-09 09:30] LABS: PLATELET COUNT 397 K/MM3 (134-434)
[2017-12-09 09:43] VITALS: BP 144/64; TEMP 98.3
== END 2017-12-09 10:00 | disposition home or self-care (01) ==
LOC: JONCBLOOD 07:27 → J7W 07:31 → JONCBLOOD 12-09 10:00
PROVIDERS: ATTEND Internal Medicine Hematology & Oncology
PROC: 30233N1 Transfusion of Nonautologous Red Blood Cells into Peripheral Vein, Percutaneous Approach (ICD-10-PCS; principal; 2017-12-08)
DX: D46.4 Refractory anemia, unspecified (principal)
CPT/HCPCS: 36415; 36430; 80048; 80076; 85025; 85027; 86850; 86900; 86901; 86922; P9038; P9058

== ENCOUNTER 2018-02-05 08:17 | Day surgery (SDC) | payer OTHER, BC ==
[2018-02-05 09:46] LABS: BASO % 6.5 % (0-2.0); EOS % 3.5 % (0-4.5); HEMATOCRIT 22.1 % (35.4-49); LYMPH % 15.1 % (8-40); MCH 26.7 pg (25.7-33.7); MONO % 3.3 % (3.8-10.2); NEUT % 71.6 % (42.8-82.8); PLATELET COUNT 451 K/MM3 (134-434); RBC 2.57 M/mm3 (4.00-5.60); RDW 36.7 % (11.9-15.9); WHITE BLOOD COUNT 15.2 K/mm3 (4.0-10.0)
[2018-02-05 09:58] LABS: HEMOGLOBIN 6.8 GM/dL (11.7-16.9)
[2018-02-05 10:13] LABS: ALK PHOS 62 U/L (45-117); ANION GAP 8 (8-16); BILIRUBIN,TOTAL 1.4 mg/dL (0.2-1.0); BLOOD UREA NITROGEN 13 mg/dL (7-18); CALCIUM 8.7 mg/dL (8.5-10.1); CHLORIDE 108 mmol/L (98-107); CO2 27 mmol/L (21-32); CREATININE 0.6 mg/dL (0.7-1.3); GLUCOSE,RANDOM 86 mg/dL (74-106); MAGNESIUM 1.9 mg/dL (1.8-2.4); POTASSIUM 4.2 mmol/L (3.5-5.1); SGOT/AST 16 U/L (15-37); SGPT/ALT 16 U/L (12-78); SODIUM 143 mmol/L (136-145); TOT PROT 6.4 g/dl (6.4-8.2)
[2018-02-05 11:46] LABS: ANISOCYTOSIS 3+; PLATELET ESTIMATE INCREASED; TARGET CELLS 2+; TEAR DROP CELLS 2+
[2018-02-05] MEDS ORDERED: FUROSEMIDE 40 MG/4 ML INJECTABLE VIAL IVPUSH ONE (13:30)
[2018-02-05] MEDS ORDERED: POTASSIUM CHLORIDE TABS 20 MEQ TABLET.ER (FP) PO ONE (13:30)
--- NOTE | 2018-02-05 15:09 | HP ---
[facility]ellite [facility] - Chief Complaint Chief Complaint: Patient here for elective blood transfusion. Deies any fever/ chills/cough/SOB/abdominal pain/n/v/diarrhea. No urinary symptoms History Source: Patient - Past Medical History Allergies/Adverse Reactions: Allergies Allergy/AdvReac Type Severity Reaction Status Date / Time No Known Allergies Allergy Verified 09/18/17 22:19 Cardiovascular: Yes: HTN Pulmonary: Yes: COPD Heme/Onc: Yes: Myeloproliferative Synd - Current Medications Current Medications: Home Medications Medication Instructions Recorded Tamsulosin HCl 0.4 mg PO DAILY 08/31/12 Anagrelide HCl [Agrylin -] 1 mg PO BID 04/11/14 Aspirin [ASA -] 81 mg PO DAILY 04/11/14 Deferasirox [Jadenu] 720 mg OD DAILY 07/12/16 Sotalol HCl [Betapace -] 80 mg PO BID@0800,2000 #60 tablet 07/14/16 Prednisone 2.5 mg PO DAILY 08/17/16 Atovaquone 1,500 mg PO DAILY 10/17/16 Amlodipine Besylate [Norvasc -] 5 mg PO DAILY 02/28/17 Gabapentin 600 mg PO BID 04/25/17 Acetaminophen [Acetaminophen ER] 650 mg PO Q6H PRN 09/19/17 Alendronate Na [Fosamax (Weekly)] 70 mg PO MO 09/19/17 Calcium Carbonate/Vitamin D3 2 tab PO DAILY 09/19/17 [Calcium 500-Vit D3 400 Tablet] Menthol [Icy Hot] 1 each TP DAILY 09/19/17 Satellite Physical Exam - Physical Examination General Appearance: Well Nourished, Alert & Oriented x3 Lung: Clear to auscultation, Normal air movement Heart: Regular rate & rhythm, Normal S1, Normal S2 Abdomen: Soft, No tenderness, Normal bowel sounds Extremities: No edema Neurological: Intact Satellite Impression/Plan - Impression/Plan Impression: MDS/MPD. On anagrelide/aspirin. Iron overload. For transfusion for Hgb 6.8
[2018-02-05] MEDS ORDERED: PORTA CATH FLUSH 10 ML IVPUSH ONE (16:00)
[2018-02-05 21:15] LABS: EOS % 2.7 % (0-4.5); HEMATOCRIT 25.1 % (35.4-49); HEMOGLOBIN 7.7 GM/dL (11.7-16.9); LYMPH % 12.7 % (8-40); MCH 26.2 pg (25.7-33.7); MCHC 30.7 g/dl (32.0-35.9); MEAN CELL VOLUME 85.4 fl (80-96); MEAN PLT VOLUME 10.1 fl (7.5-11.1); MONO % 3.7 % (3.8-10.2); NEUT % 75.1 % (42.8-82.8); PLATELET COUNT 456 K/MM3 (134-434); RBC 2.94 M/mm3 (4.00-5.60); RDW 29.4 % (11.9-15.9); WHITE BLOOD COUNT 14.1 K/mm3 (4.0-10.0)
[2018-02-05 23:10] LABS: SMUDGE CELLS FEW
[2018-02-05 23:11] LABS: ANISOCYTOSIS 3+; PLATELET ESTIMATE SLT INCREASE
[2018-02-06 06:12] VITALS: TEMP 98
[2018-02-06 10:44] VITALS: BP 145/65; PULSE 79
== END 2018-02-06 09:16 | disposition home or self-care (01) ==
LOC: JONCBLOOD 08:17 → J7W 08:44 → JONCBLOOD 02-06 09:16
PROVIDERS: ATTEND Internal Medicine Hematology & Oncology
PROC: 30233N1 Transfusion of Nonautologous Red Blood Cells into Peripheral Vein, Percutaneous Approach (ICD-10-PCS; principal; 2018-02-05)
DX: D46.9 Myelodysplastic syndrome, unspecified (principal); I10 Essential (primary) hypertension; J44.9 Chronic obstructive pulmonary disease, unspecified
CPT/HCPCS: 36415; 36430; 36511; 80053; 83735; 84550; 85025; 86850; 86900; 86901; 86922; P9038; P9058

== ENCOUNTER 2018-04-26 07:35 | Day surgery (SDC) | payer OTHER, BC ==
[2018-04-26 10:16] LABS: BASO % 4.5 % (0-2.0); EOS % 2.8 % (0-4.5); HEMATOCRIT 22.6 % (35.4-49); LYMPH % 10.6 % (8-40); MCH 27.1 pg (25.7-33.7); MCHC 30.7 g/dl (32.0-35.9); MEAN CELL VOLUME 88.2 fl (80-96); MEAN PLT VOLUME 9.4 fl (7.5-11.1); NEUT % 79.1 % (42.8-82.8); PLATELET COUNT 372 K/MM3 (134-434); RBC 2.56 M/mm3 (4.00-5.60); WHITE BLOOD COUNT 24.6 K/mm3 (4.0-10.0)
[2018-04-26 10:23] LABS: HEMOGLOBIN 6.9 GM/dL (11.7-16.9)
[2018-04-26 12:09] LABS: ANISOCYTOSIS 1+; MACROCYTOSIS 1+; OVALOCYTE 1+; PLATELET ESTIMATE NORMAL; TARGET CELLS 1+
--- NOTE | 2018-04-26 21:25 | HP ---
[facility]ellite H - Chief Complaint Chief Complaint: Here for elective blood transfusion. Denies any symptoms History Source: Patient - Past Medical History Allergies/Adverse Reactions: Allergies Allergy/AdvReac Type Severity Reaction Status Date / Time No Known Allergies Allergy Verified 09/18/17 22:19 Cardiovascular: Yes: HTN Pulmonary: Yes: COPD Heme/Onc: Yes: Myeloproliferative Synd - Current Medications Current Medications: Home Medications Medication Instructions Recorded Tamsulosin HCl 0.4 mg PO DAILY 08/31/12 Anagrelide HCl [Agrylin -] 1 mg PO BID 04/11/14 Aspirin [ASA -] 81 mg PO DAILY 04/11/14 Deferasirox [Jadenu] 720 mg OD DAILY 07/12/16 Sotalol HCl [Betapace -] 80 mg PO BID@0800,2000 #60 tablet 07/14/16 Prednisone 2.5 mg PO DAILY 08/17/16 Atovaquone 1,500 mg PO DAILY 10/17/16 Amlodipine Besylate [Norvasc -] 5 mg PO DAILY 02/28/17 Gabapentin 600 mg PO BID 04/25/17 Acetaminophen [Acetaminophen ER] 650 mg PO Q6H PRN 09/19/17 Alendronate Na [Fosamax (Weekly)] 70 mg PO MO 09/19/17 Calcium Carbonate/Vitamin D3 2 tab PO DAILY 09/19/17 [Calcium 500-Vit D3 400 Tablet] Menthol [Icy Hot] 1 each TP DAILY 09/19/17 [facility]ellite Physical Exam - Physical Examination Vital Signs: Vital Signs Period Temp Pulse Resp BP Sys/Paredes Pulse Ox Last 24 Hr 98.2 F-98.6 F 67-80 20-20 116-148/56-76 General Appearance: Alert & Oriented x3 Lung: Clear to auscultation Heart: Regular rate & rhythm, Normal S1, Normal S2 Abdomen: Soft, No tenderness Extremities: No edema Neurological: Intact Satellite Impression/Plan - Impression/Plan Impression: Myeloproliferative disorder. Transfusion dependency. On anagrelide /asa for thrombocytosis
[2018-04-27 08:15] VITALS: BP 140/63; PULSE 71; TEMP 98.1
== END 2018-04-27 09:16 | disposition home or self-care (01) ==
LOC: JONCBLOOD 07:35 → J7W 08:13 → JONCBLOOD 04-27 09:16
PROVIDERS: ATTEND Internal Medicine Hematology & Oncology
PROC: 30233N1 Transfusion of Nonautologous Red Blood Cells into Peripheral Vein, Percutaneous Approach (ICD-10-PCS; principal; 2018-04-26)
DX: D46.9 Myelodysplastic syndrome, unspecified (principal)
CPT/HCPCS: 36415; 36430; 85025; 86850; 86900; 86901; 86922; P9038; P9058

== ENCOUNTER 2018-06-11 07:19 | Day surgery (SDC) | payer OTHER, BC ==
[2018-06-11 09:51] LABS: BASO % 6.5 % (0-2.0); EOS % 3.3 % (0-4.5); HEMATOCRIT 20.2 % (35.4-49); LYMPH % 13.1 % (8-40); MCH 28.3 pg (25.7-33.7); MCHC 32.7 g/dl (32.0-35.9); MEAN CELL VOLUME 86.5 fl (80-96); MEAN PLT VOLUME 10.6 fl (7.5-11.1); MONO % 3.4 % (3.8-10.2); NEUT % 73.7 % (42.8-82.8); PLATELET COUNT 218 K/MM3 (134-434); RBC 2.34 M/mm3 (4.00-5.60); RDW 32.4 % (11.9-15.9); WHITE BLOOD COUNT 15.3 K/mm3 (4.0-10.0)
[2018-06-11 10:21] LABS: ALK PHOS 69 U/L (45-117); ANION GAP 9 MMOL/L (8-16); BILIRUBIN,TOTAL 1.2 mg/dL (0.2-1); BLOOD UREA NITROGEN 10 mg/dL (7-18); CALCIUM 8.6 mg/dL (8.5-10.1); CHLORIDE 108 mmol/L (98-107); CO2 26 mmol/L (21-32); CREATININE 0.5 mg/dL (0.55-1.3); GLUCOSE,RANDOM 78 mg/dL (74-106); POTASSIUM 4.6 mmol/L (3.5-5.1); SGOT/AST 13 U/L (15-37); SGPT/ALT 13 U/L (13-61); SODIUM 144 mmol/L (136-145); TOT PROT 6.2 g/dl (6.4-8.2)
[2018-06-11 10:26] LABS: HEMOGLOBIN 6.6 GM/dL (11.7-16.9)
[2018-06-11 12:22] LABS: ANISOCYTOSIS 2+; MACROCYTOSIS 1+; OVALOCYTE 1+; PLATELET ESTIMATE NORMAL; TARGET CELLS 1+
[2018-06-11] MEDS ORDERED: PORTA CATH FLUSH 10 ML IVPUSH ONE (14:58)
[2018-06-11 15:06] VITALS: BP 120/53; PULSE 76; TEMP 98.1
[2018-06-11 19:06] LABS: HEMOGLOBIN 8.5 GM/dL (11.7-16.9); MCH 28.3 pg (25.7-33.7); MCHC 32.8 g/dl (32.0-35.9); MEAN CELL VOLUME 86.2 fl (80-96); MEAN PLT VOLUME 11.2 fl (7.5-11.1); PLATELET COUNT 234 K/MM3 (134-434); RBC 3.01 M/mm3 (4.00-5.60); RDW 26.3 % (11.9-15.9); WHITE BLOOD COUNT 19.1 K/mm3 (4.0-10.0)
== END 2018-06-11 22:18 | disposition home or self-care (01) ==
LOC: JONCBLOOD 07:19 → J7W 08:46 → JONCBLOOD 22:18
PROVIDERS: ATTEND Internal Medicine Hematology & Oncology
PROC: 30233N1 Transfusion of Nonautologous Red Blood Cells into Peripheral Vein, Percutaneous Approach (ICD-10-PCS; principal; 2018-06-11)
DX: D46.9 Myelodysplastic syndrome, unspecified (principal)
CPT/HCPCS: 36415; 36430; 80053; 85025; 85027; 86850; 86900; 86901; 86922; P9038; P9058

== ENCOUNTER 2018-08-03 08:26 | Day surgery (SDC) | payer OTHER, BC ==
[2018-08-03 10:51] LABS: HEMATOCRIT 18.6 % (35.4-49); MCH 26.5 pg (25.7-33.7); MCHC 31.4 g/dl (32.0-35.9); MEAN CELL VOLUME 84.4 fl (80-96); MEAN PLT VOLUME 10.5 fl (7.5-11.1); PLATELET COUNT 229 K/MM3 (134-434); RBC 2.21 M/mm3 (4.00-5.60); RDW 30.6 % (11.9-15.9); WHITE BLOOD COUNT 9.6 K/mm3 (4.0-10.0)
[2018-08-03 11:01] LABS: HEMOGLOBIN 5.9 GM/dL (11.7-16.9)
[2018-08-03 20:21] VITALS: TEMP 98.5
--- NOTE | 2018-08-03 23:13 | HP ---
[facility] - Chief Complaint Chief Complaint: Here for elective blood transfusion. No fever/chills/cough/SOB /abdominal pain/nausea/vomiting/diarrhea/urinary symptoms History Source: Patient - Past Medical History Allergies/Adverse Reactions: Allergies Allergy/AdvReac Type Severity Reaction Status Date / Time No Known Allergies Allergy Verified 09/18/17 22:19 Cardiovascular: Yes: HTN Pulmonary: Yes: COPD Heme/Onc: Yes: Myeloproliferative Synd - Current Medications Current Medications: Home Medications Medication Instructions Recorded Tamsulosin HCl 0.4 mg PO DAILY 08/31/12 Anagrelide HCl [Agrylin -] 1 mg PO BID 04/11/14 Aspirin [ASA -] 81 mg PO DAILY 04/11/14 Deferasirox [Jadenu] 720 mg OD DAILY 07/12/16 Sotalol HCl [Betapace -] 80 mg PO BID@0800,2000 #60 tablet 07/14/16 Prednisone 2.5 mg PO DAILY 08/17/16 Atovaquone 1,500 mg PO DAILY 10/17/16 Amlodipine Besylate [Norvasc -] 5 mg PO DAILY 02/28/17 Gabapentin 600 mg PO BID 04/25/17 Acetaminophen [Acetaminophen ER] 650 mg PO Q6H PRN 09/19/17 Alendronate Na [Fosamax (Weekly)] 70 mg PO MO 09/19/17 Calcium Carbonate/Vitamin D3 2 tab PO DAILY 09/19/17 [Calcium 500-Vit D3 400 Tablet] Menthol [Icy Hot] 1 each TP DAILY 09/19/17 Satellite Physical Exam - Physical Examination Vital Signs: Vital Signs Period Temp Pulse Resp BP Sys/Paredes Pulse Ox Last 24 Hr 98.1 F-98.5 F 77-84 - 118-142/49-68 96 General Appearance: Alert & Oriented x3 Lung: Clear to auscultation, Normal air movement Heart: Regular rate & rhythm, Normal S1, Normal S2 Abdomen: Soft, No tenderness Extremities: No edema Satellite Impression/Plan - Impression/Plan Impression: 73 y/o patient with MPD/MDS, overlap syndrome. Admitted for elective blood transfusion. For possible hernia surgery on 08/17/18. Platelest well controlled. Understands risks/benefits of surgery
[2018-08-04 10:48] LABS: BASO % 1.3 % (0-2.0); EOS % 4.1 % (0-4.5); HEMATOCRIT 23.6 % (35.4-49); MEAN CELL VOLUME 82.1 fl (80-96); MEAN PLT VOLUME 10.7 fl (7.5-11.1); MONO % 3.5 % (3.8-10.2); NEUT % 84.1 % (42.8-82.8); PLATELET COUNT 268 K/MM3 (134-434); RBC 2.87 M/mm3 (4.00-5.60); RDW 25.1 % (11.9-15.9); WHITE BLOOD COUNT 16.5 K/mm3 (4.0-10.0)
[2018-08-04 12:01] VITALS: BP 144/67; PULSE 84
[2018-08-04 12:43] LABS: ANISOCYTOSIS 1+; MACROCYTOSIS 0; PLATELET ESTIMATE NORMAL
== END 2018-08-04 12:07 | disposition home or self-care (01) ==
LOC: JONCBLOOD 08:26 → J6S 08:40 → JONCBLOOD 08-04 12:07
PROVIDERS: ATTEND Internal Medicine Hematology & Oncology
PROC: 30233N1 Transfusion of Nonautologous Red Blood Cells into Peripheral Vein, Percutaneous Approach (ICD-10-PCS; principal; 2018-08-03)
DX: D46.9 Myelodysplastic syndrome, unspecified (principal); I10 Essential (primary) hypertension
CPT/HCPCS: 36415; 36430; 85025; 85027; 86850; 86900; 86901; 86922; P9038; P9058

== ENCOUNTER 2018-08-15 05:49 | Day surgery (SDC) | payer OTHER, BC ==
[2018-08-15 09:04] LABS: HEMATOCRIT 20.8 % (35.4-49); MCH 27.3 pg (25.7-33.7); MCHC 32.5 g/dl (32.0-35.9); MEAN CELL VOLUME 84.1 fl (80-96); MEAN PLT VOLUME 10.2 fl (7.5-11.1); PLATELET COUNT 315 K/MM3 (134-434); RBC 2.47 M/mm3 (4.00-5.60); RDW 26.3 % (11.9-15.9); WHITE BLOOD COUNT 9.9 K/mm3 (4.0-10.0)
[2018-08-15 09:22] LABS: HEMOGLOBIN 6.8 GM/dL (11.7-16.9)
[2018-08-15 09:40] LABS: ALBUMIN 3.8 g/dl (3.4-5.0); ALK PHOS 64 U/L (45-117); ANION GAP 7 MMOL/L (8-16); BILIRUBIN,DIRECT 0.3 mg/dL (0.0-0.2); BILIRUBIN,TOTAL 1.3 mg/dL (0.2-1); BLOOD UREA NITROGEN 12 mg/dL (7-18); CALCIUM 8.5 mg/dL (8.5-10.1); CHLORIDE 108 mmol/L (98-107); CO2 28 mmol/L (21-32); CREATININE 0.5 mg/dL (0.55-1.3); GLUCOSE,RANDOM 85 mg/dL (74-106); POTASSIUM 4.4 mmol/L (3.5-5.1); SGOT/AST 12 U/L (15-37); SGPT/ALT 14 U/L (13-61); SODIUM 143 mmol/L (136-145); TOT PROT 5.8 g/dl (6.4-8.2)
[2018-08-15] MEDS ORDERED: FUROSEMIDE 40 MG/4 ML INJECTABLE VIAL IVPUSH ONE (12:30)
[2018-08-15] MEDS ORDERED: PORTA CATH FLUSH 10 ML IVPUSH ONE (16:14)
[2018-08-15 17:37] VITALS: BP 148/60; PULSE 84; TEMP 97.9
[2018-08-15 19:20] LABS: HEMATOCRIT 23.7 % (35.4-49); MCHC 33.6 g/dl (32.0-35.9); MEAN CELL VOLUME 83.3 fl (80-96); MEAN PLT VOLUME 9.9 fl (7.5-11.1); PLATELET COUNT 305 K/MM3 (134-434); RBC 2.84 M/mm3 (4.00-5.60); RDW 22.1 % (11.9-15.9); WHITE BLOOD COUNT 11.2 K/mm3 (4.0-10.0)
== END 2018-08-15 20:12 | disposition home or self-care (01) ==
LOC: JONCBLOOD 05:49 → J7W 07:32 → JONCBLOOD 20:12
PROVIDERS: ATTEND Internal Medicine Hematology & Oncology
PROC: 30233N1 Transfusion of Nonautologous Red Blood Cells into Peripheral Vein, Percutaneous Approach (ICD-10-PCS; principal; 2018-08-15)
DX: D46.9 Myelodysplastic syndrome, unspecified (principal)
CPT/HCPCS: 36415; 36430; 80048; 80076; 85027; 86850; 86900; 86901; 86922; P9038; P9058

== ENCOUNTER 2018-09-07 07:16 | Day surgery (SDC) | payer OTHER, BC ==
[2018-09-07] MEDS ORDERED: FUROSEMIDE 40 MG/4 ML INJECTABLE VIAL IVPUSH SCH (09:15)
[2018-09-07 10:35] LABS: HEMATOCRIT 20.6 % (35.4-49); MCH 27.7 pg (25.7-33.7); MCHC 31.7 g/dl (32.0-35.9); MEAN CELL VOLUME 87.4 fl (80-96); MEAN PLT VOLUME 10.4 fl (7.5-11.1); PLATELET COUNT 296 K/MM3 (134-434); RBC 2.36 M/mm3 (4.00-5.60); RDW 25.8 % (11.9-15.9); WHITE BLOOD COUNT 14.1 K/mm3 (4.0-10.0)
[2018-09-07 10:38] LABS: HEMOGLOBIN 6.5 GM/dL (11.7-16.9)
--- NOTE | 2018-09-07 10:44 | HP ---
Admitting History and Physical - Primary Care Physician PCP: Dr. Ac - Admission Chief Complaint: Elective transfusion History Source: Patient Limitations to Obtaining History: No Limitations - Past Medical History Cardiovascular: Yes: HTN Pulmonary: Yes: COPD Heme/Onc: Yes: Myeloproliferative Synd - Past Surgical History Past Surgical History: Yes: Hernia Repair - Smoking History Smoking history: Never smoked Have you smoked in the past 12 months: No Aproximately how many cigarettes per day: 0 If you are a former smoker, when did you quit?: 1 YR - Alcohol/Substance Use Hx Alcohol Use: No Home Medications - Allergies Allergies/Adverse Reactions: Allergies Allergy/AdvReac Type Severity Reaction Status Date / Time No Known Allergies Allergy Verified 09/18/17 22:19 - Home Medications Home Medications: Ambulatory Orders Tamsulosin HCl 0.4 mg PO DAILY 08/31/12 Anagrelide HCl [Agrylin -] 1 mg PO BID 04/11/14 Aspirin [ASA -] 81 mg PO DAILY 04/11/14 Sotalol HCl [Betapace -] 80 mg PO BID@0800,2000 #60 tablet 07/14/16 Amlodipine Besylate [Norvasc -] 5 mg PO DAILY 02/28/17 Alendronate Na [Fosamax (Weekly)] 70 mg PO WEEKLY 09/19/17 Calcium Carbonate/Vitamin D3 [Calcium 500-Vit D3 400 Tablet] 2 tab PO DAILY Menthol [Icy Hot] 1 each TP DAILY 09/19/17 Review of Systems - Review of Systems Constitutional: denies: Loss of Appetite, Unintentional Wgt. Loss, Weakness Eyes: denies: Double Vision, Photophobia, Recent Change in Vision HENT: denies: Difficult Swallowing, Epistaxis, Hearing Loss, Throat Pain Neck: denies: Pain on Movement, Stiffness, Swollen Glands, Tenderness Cardiovascular: denies: Chest Pain, Palpitations, Shortness of Breath Respiratory: reports: Exercise Intolerance. denies: Hemoptysis Gastrointestinal: denies: Abdominal Pain, Constipation, Diarrhea Genitourinary: denies: Burning Musculoskeletal: reports: Back Pain Integumentary: denies: Erythema Neurological: reports: Other (left carotid stenosis) Hematology/Lymphatic: denies: Easily Bruised, Excessive Bleeding, Swollen Glands Psychiatric: reports: No Symptoms Physical Examination Constitutional: Yes: No Distress Eyes: Yes: PERRL. No: Diplopia, Ptosis, Sclera Icterus HENT: Yes: Atraumatic, Normocephalic. No: Tonsillar Exudate Neck: Yes: Supple, Trachea Midline. No: Lymphadenopathy, Thyromegaly Cardiovascular: Yes: Regular Rate and Rhythm, Murmur Respiratory: Yes: WNL Gastrointestinal: Yes: Normal Bowel Sounds, Soft. No: Hepatomegaly, Splenomegaly Musculoskeletal: Yes: Back Pain Extremities: No: Calf Tenderness, Cyanosis Edema: No Integumentary: Yes: WNL Neurological: Yes: WNL Psychiatric: Yes: WNL Labs: CBC, BMP 09/07/18 09:35 Problem List - Problems (1) Anemia Assessment/Plan: MDS/MPD For transfusion therapy Code(s): D64.9 - ANEMIA, UNSPECIFIED Qualifiers: (2) Carotid arterial disease Assessment/Plan: Left carotid artery disease Endarterectomy planned--09/10 Code(s): I77.9 - DISORDER OF ARTERIES AND ARTERIOLES, UNSPECIFIED
[2018-09-07 10:45] LABS: ALK PHOS 59 U/L (45-117); ANION GAP 9 MMOL/L (8-16); BILIRUBIN,DIRECT 0.4 mg/dL (0.0-0.2); BILIRUBIN,TOTAL 1.3 mg/dL (0.2-1); BLOOD UREA NITROGEN 14 mg/dL (7-18); CALCIUM 8.8 mg/dL (8.5-10.1); CHLORIDE 108 mmol/L (98-107); CO2 24 mmol/L (21-32); CREATININE 0.6 mg/dL (0.55-1.3); GLUCOSE,RANDOM 134 mg/dL (74-106); POTASSIUM 4.5 mmol/L (3.5-5.1); SGOT/AST 14 U/L (15-37); SGPT/ALT 14 U/L (13-61); SODIUM 141 mmol/L (136-145); TOT PROT 5.9 g/dl (6.4-8.2)
[2018-09-07] MEDS ORDERED: PORTA CATH FLUSH 10 ML IVPUSH ONE (11:12)
[2018-09-07 21:24] LABS: HEMATOCRIT 24.2 % (35.4-49); MCH 29.1 pg (25.7-33.7); MCHC 33.1 g/dl (32.0-35.9); MEAN CELL VOLUME 87.8 fl (80-96); MEAN PLT VOLUME 10.8 fl (7.5-11.1); PLATELET COUNT 284 K/MM3 (134-434); RBC 2.75 M/mm3 (4.00-5.60); RDW 19.7 % (11.9-15.9); WHITE BLOOD COUNT 12.8 K/mm3 (4.0-10.0)
[2018-09-08 08:08] VITALS: BP 143/69; PULSE 73; TEMP 97.8
[2018-09-08 10:28] LABS: HEMATOCRIT 28.8 % (35.4-49); HEMOGLOBIN 9.5 GM/dL (11.7-16.9); MCH 28.8 pg (25.7-33.7); MCHC 32.9 g/dl (32.0-35.9); MEAN CELL VOLUME 87.6 fl (80-96); MEAN PLT VOLUME 10.4 fl (7.5-11.1); PLATELET COUNT 261 K/MM3 (134-434); RBC 3.28 M/mm3 (4.00-5.60); RDW 17.8 % (11.9-15.9)
[2018-09-08 10:43] LABS: INR 1.3 (0.83-1.09); PROTHROMBIN TIME (PATIENT) 15.4 SEC (9.7-13.0)
[2018-09-08 10:46] LABS: ACTIVATED PTT 35.5 SECONDS (25.2-36.5)
[2018-09-08 10:51] LABS: ALBUMIN 3.9 g/dl (3.4-5.0); ALK PHOS 61 U/L (45-117); ANION GAP 7 MMOL/L (8-16); BILIRUBIN,TOTAL 1.5 mg/dL (0.2-1); BLOOD UREA NITROGEN 13 mg/dL (7-18); CALCIUM 8.8 mg/dL (8.5-10.1); CHLORIDE 108 mmol/L (98-107); CO2 28 mmol/L (21-32); CREATININE 0.5 mg/dL (0.55-1.3); GLUCOSE,RANDOM 97 mg/dL (74-106); POTASSIUM 4.6 mmol/L (3.5-5.1); SGOT/AST 12 U/L (15-37); SGPT/ALT 16 U/L (13-61); SODIUM 143 mmol/L (136-145); TOT PROT 6.1 g/dl (6.4-8.2)
== END 2018-09-08 13:24 | disposition home or self-care (01) ==
LOC: JONCBLOOD 07:16 → J7W 08:22 → JONCBLOOD 09-08 13:24
PROVIDERS: ATTEND Internal Medicine Hematology & Oncology
PROC: 30233N1 Transfusion of Nonautologous Red Blood Cells into Peripheral Vein, Percutaneous Approach (ICD-10-PCS; principal; 2018-09-07)
DX: D46.9 Myelodysplastic syndrome, unspecified (principal)
CPT/HCPCS: 36415; 36430; 36511; 80048; 80053; 80076; 85027; 85610; 85730; 86850; 86900; 86901; 86922; P9038; P9058

== ENCOUNTER 2018-09-10 11:00 | Inpatient (IN) | payer OTHER, BC ==
[~2018-09-10 11:00] MED LIST: HEPARIN NA (PORCINE) 5,000 UNITS/ML 1ML VIAL SQ ONE; LIDOCAINE HCL 0.5%, 5 MG/ML (50mL SDVIAL) INF ONE
[2018-09-10] MEDS ORDERED: HEPARIN NA (PORCINE) 5,000 UNITS/ML 1ML VIAL ONE ×3 (12:07→14:48)
[2018-09-10] MEDS ORDERED: LIDOCAINE HCL 0.5%, 5 MG/ML (50mL SDVIAL) ONE (12:09)
[2018-09-10 13:15] LABS: HEMATOCRIT 29.9 % (35.4-49); MCH 29.7 pg (25.7-33.7); MCHC 33.3 g/dl (32.0-35.9); RBC 3.36 M/mm3 (4.00-5.60); RDW 20.4 % (11.9-15.9); WHITE BLOOD COUNT 16.2 K/mm3 (4.0-10.0)
[2018-09-10] MEDS ORDERED: ROCURONIUM BROMIDE 50 MG/5 ML VIAL ONE ×3 (13:21→15:39)
[2018-09-10] MEDS ORDERED: ETOMIDATE 20 MG/10 ML AMPUL IVPUSH ONE (13:21)
[2018-09-10] MEDS ORDERED: MIDAZOLAM HCL 2 MG/2 ML SINGLE DOSE VIAL ONE (13:21)
[2018-09-10] MEDS ORDERED: PHENYLEPHRINE HCL 10 MG/1 ML SINGLE DOSE VIAL ONE (13:21)
[2018-09-10] MEDS ORDERED: LIDOCAINE HCL/PF 2% SDV 5ML VIAL ONE (13:26)
[2018-09-10] MEDS ORDERED: PROPOFOL 20 ML ONE (14:00)
[2018-09-10] MEDS ORDERED: ceFAZolin SODIUM 1 GM VIAL ONE (14:14)
[2018-09-10] MEDS ORDERED: HEPARIN NA (PORCINE) 5,000 UNITS/ML 1ML VIAL SQ ONE (14:30)
[2018-09-10] MEDS ORDERED: PROTAMINE SULFATE 50 MG/5 ML VIAL ONE (15:48)
[2018-09-10] MEDS ORDERED: POVIDONE-IODINE OINTMENT 10% - 28.4 GM TUBE ONE (15:54)
--- NOTE | 2018-09-10 16:09 | OP ---
Operative Note - Note: Operative Date: 09/10/18 Pre-Operative Diagnosis: Left Carotid stenosis Operation: Left carotid endarterectomy Findings: High bifurcation left carotid, small diameter left ICA Eccentric plaque in proximal ICA with severe luminal stenosis Implants: Thin collagen coated Dacron patch Post-Operative Diagnosis: Same as Pre-op Surgeon: Hernan Holloway [place]: Irasema Tim Anesthesiologist/CLOUD ARCHITECT: Lani Mcdermott Anesthesia: General Specimens Removed: Left carotid plaque Estimated Blood Loss (mls): 50
--- NOTE | 2018-09-10 16:13 | HP ---
Admitting History and Physical - Primary Care Physician PCP: Alfredito Ortega - Admission History of Present Illness: 73 year old man was found to have left carotid bruit during work-up for hernia surgery. Carotid Duplex and MRA confirmed a severe stenosis >90%. He has no prior history of CVA, TIA or TMB History Source: Patient, Medical Record - Past Medical History Cardiovascular: Yes: AFIB, HTN Pulmonary: Yes: COPD Heme/Onc: Yes: Myeloproliferative Synd, Other (Thrombocytosis) - Past Surgical History Past Surgical History: Yes: Hernia Repair - Smoking History Smoking history: Never smoked Have you smoked in the past 12 months: No Aproximately how many cigarettes per day: 0 If you are a former smoker, when did you quit?: 1 YR - Alcohol/Substance Use Hx Alcohol Use: No Home Medications - Allergies Allergies/Adverse Reactions: Allergies Allergy/AdvReac Type Severity Reaction Status Date / Time No Known Allergies Allergy Verified 09/07/18 14:05 - Home Medications Home Medications: Ambulatory Orders Tamsulosin HCl 0.4 mg PO DAILY 08/31/12 Anagrelide HCl [Agrylin -] 1 mg PO BID 04/11/14 Aspirin [ASA -] 81 mg PO DAILY 04/11/14 Sotalol HCl [Betapace -] 80 mg PO BID@0800,2000 #60 tablet 07/14/16 Amlodipine Besylate [Norvasc -] 5 mg PO DAILY 02/28/17 Calcium Carbonate/Vitamin D3 [Calcium 500-Vit D3 400 Tablet] 2 tab PO DAILY Physical Examination Vital Signs: Vital Signs Temperature 98.0 F 09/10/18 13:18 Pulse Rate 66 09/10/18 13:18 Respiratory Rate 20 09/10/18 13:18 Blood Pressure 126/55 L 09/10/18 13:18 O2 Sat by Pulse Oximetry (%) 98 09/10/18 13:18 Constitutional: Yes: No Distress Eyes: Yes: WNL HENT: Yes: WNL Neck: Yes: Supple, Other (bilateral bruit) Cardiovascular: Yes: Regular Rate and Rhythm Respiratory: Yes: Regular Gastrointestinal: Yes: Soft Extremities: Yes: WNL Edema: No Peripheral Pulses WNL: Yes Neurological: Yes: Alert, Oriented Labs: CBC, BMP 09/10/18 12:53 Problem List - Problems (1) Carotid stenosis, left Assessment/Plan: Severe stenosis left ICA, asymptomatic. After discussion of risks and benefits of carotid surgery patient requested procedure to lower risk for future stroke. Code(s): I65.22 - OCCLUSION AND STENOSIS OF LEFT CAROTID ARTERY
[2018-09-10] MEDS ORDERED: ONDANSETRON 4 MG/2 ML VIAL IVPB PRN (16:16)
[2018-09-10] MEDS ORDERED: DEXTROSE 5%-0.45% SALINE 1,000 ML IV SCH (16:30)
--- NOTE | 2018-09-10 16:30 | CONSULT ---
Consultation: REQUESTING PROVIDER:Dr Cruz CONSULT REQUEST: We have been asked to medically evaluate this patient for ( post op monitoring ). HISTORY OF PRESENT ILLNESS: 73 year old man with h/o HTN, AFIB, , COPD was found to have left carotid bruit during work-up for hernia surgery. Carotid Duplex and MRA confirmed a severe stenosis >90%. He has no prior history of CVA, TIA or TMB. pt presented to ICU S/p left carotid endarterectomy denies nay fever, chills, N/V/D/C , denies any chest pain , sob , denies palpitation , abdominal pain or urinary symptoms. denies any headache, blurry vision, focal weakness , numbness, tingling REVIEW OF SYSTEMS: CONSTITUTIONAL: Absent: fever, chills, diaphoresis, generalized weakness, malaise, loss of appetite, weight change HEENT: Absent: rhinorrhea, nasal congestion, throat pain, throat swelling, difficulty swallowing, mouth swelling, ear pain, eye pain, visual changes CARDIOVASCULAR: Absent: chest pain, syncope, palpitations, irregular heart rate, lightheadedness , peripheral edema RESPIRATORY: Absent: cough, shortness of breath, dyspnea with exertion, orthopnea, wheezing, stridor, hemoptysis GASTROINTESTINAL: Absent: abdominal pain, abdominal distension, nausea, vomiting, diarrhea, constipation, melena, hematochezia GENITOURINARY: Absent: dysuria, frequency, urgency, hesitancy, hematuria, flank pain, genital pain MUSCULOSKELETAL: Absent: myalgia, arthralgia, joint swelling, back pain, neck pain SKIN: Absent: rash, itching, pallor ENDOCRINE: Absent: unexplained weight gain, unexplained weight loss, heat intolerance, cold intolerance NEUROLOGIC: Absent: headache, focal weakness or paresthesias, dizziness, unsteady gait, seizure, mental status changes, bladder or bowel incontinence PSYCHIATRIC: Absent: anxiety, depression, suicidal or homicidal ideation, hallucinations. PHYSICAL EXAMINATION Vital Signs - 24 hr 09/10/18 13:18 Temperature 98.0 F Pulse Rate 66 Respiratory 20 Rate Blood Pressure 126/55 L O2 Sat by Pulse 98 Oximetry (%) GENERAL: Awake, alert, and fully oriented, in no acute distress. HEAD: Normal with no signs of trauma. EYES: Pupils equal, round and reactive to light, extraocular movements intact, EARS, NOSE, THROAT: Ears normal, nares patent, oropharynx clear without exudates. Moist mucous membranes. NECK: Normal range of motion, sipple , left carotid surgery wound covered with gauze LUNGS: Breath sounds equal, clear to auscultation bilaterally. No wheezes, and no crackles. No accessory muscle use. HEART: Regular rate and rhythm, normal S1 and S2 without murmur, rub or gallop. ABDOMEN: Soft, nontender, not distended, normoactive bowel sounds, no guarding, MUSCULOSKELETAL: Normal range of motion at all joints. No bony deformities or tenderness. No CVA tenderness. LOWER EXTREMITIES: 2+ pulses, warm, well-perfused. No calf tenderness. No peripheral edema. NEUROLOGICAL: Cranial nerves II-XII intact. Normal speech. PSYCHIATRIC: Cooperative. Good eye contact. Appropriate mood and affect. SKIN: Warm, dry, normal turgor, Laboratory Results - last 24 hr 09/10/18 09/10/18 12:53 12:53 WBC 16.2 H RBC 3.36 L Hgb 10.0 L Hct 29.9 L MCV 89.0 MCH 29.7 MCHC 33.3 RDW 20.4 H Plt Count No Result Required. Platelet Comment Mod plt clumping Blood Type B POSITIVE Antibody Screen Negative Active Medications Generic Name Dose Route Start Last Admin Trade Name Freq PRN Reason Stop Dose Admin Amlodipine Besylate 5 mg 09/11/18 10:00 Norvasc - PO DAILY [facility] Anagrelide HCl 1 mg 09/10/18 22:00 Agrylin - PO BID [facility] Aspirin 81 mg 09/11/18 10:00 Asa - PO DAILY [facility] Enoxaparin Sodium 30 mg 09/11/18 10:00 Lovenox - SQ DAILY [facility] Hydromorphone HCl 2 mg 09/10/18 16:16 Dilaudid Injection - IVPB Q3H PRN PAIN LEVEL 6-10 Cefazolin Sodium 50 mls @ 100 mls/hr 09/10/18 18:00 Ancef 1 Gm Premixed Ivpb - IVPB 09/11/18 02:29 Q8H-IV ABBY Dextrose/Sodium Chloride 1,000 mls @ 75 mls/hr 09/10/18 16:30 D5-1/2ns - IV ASDIR [facility] Non-Formulary Medication 2 tab 09/11/18 10:00 Calcium Carbonate/Vitamin D3 [Calcium 500-Vit D3 400 Tablet] PO DAILY [facility] Ondansetron HCl 4 mg 09/10/18 16:16 Zofran Injection IVPB Q6H PRN NAUSEA Oxycodone/Acetaminophen 1 combo 09/10/18 16:16 Percocet 5/325 - PO Q4H PRN PAIN LEVEL 1-5 Oxycodone/Acetaminophen 2 combo 09/10/18 16:16 Percocet 5/325 - PO Q4H PRN PAIN LEVEL 6-10 Sotalol HCl 80 mg 09/10/18 20:00 Betapace - PO BID@0800,2000 [facility] Tamsulosin HCl 0.4 mg 09/11/18 10:00 Flomax - PO DAILY [facility] CBC, BMP 09/10/18 12:53 ASSESSMENT/PLAN: 73 year old male with pmhx of HTN , COPD, AFIB not on AC , recent diagnosed carotid stenosis (90% on left side )presented to the ICU post carotidectomy for monitoring # Neuro: * AAOx3 * denies any blurry vision or headach Cardiovascular # S/P carotidedtomy * POD#0 * Pain management per anesthesia Dilauded 2 mg Q 3hr PRN , Percocet 1 or 2 mg po Q 4hr PRN * clear liquids advance tomorrow as tolerated * PT/OT * IV fluids D5/1/2 NS @ 75CC/hr * resume home meds * CBC, CMP, PT, PTT, INR, Mg, P in AM * follow surgeon recommendations * head of bed elevated 30-45 degree * aspiration precautions * Cefazolin X1 * ASA 81 mg po daily , Anagrelide 1 mg po BID * zofran for nausea # HTN # PAFIB * stable , resume home meds Norvasc 5 mg po daily , sotalol 80 po bid Pulm # COPD * Not in exacerbation * resume home meds Heme # Myeloprophelative disorder * or regular transfusion last session was last Monday * f/u out pt # PBH * resume Tamsolusin 0.4 PO daily GI: no active issues * clear liquid today and advance tomorrow to low sodium diet # Musculoskeletal * FROL all ext # FEN * F: D5/1/2 NS @ 75 CC/hr * E: Monitor lytes * N: clear liquid tonight , advance to low sodium diet tomorrow # Proph * DVTS: SCDS , lovenox 30 SQ daily * GI not needed # Dispo: monitor iN ICU # Code status : full code Dispo: We will continue to follow the patient. Thank you for this consultative opportunity. Visit type - Emergency Visit Emergency Visit: Yes ED Registration Date: 09/10/18 Care time: The patient presented to the Emergency Department on the above date and was hospitalized for further evaluation of their emergent condition. - New Patient This patient is new to me today: Yes Date on this admission: 09/10/18 - Critical Care Critical Care patient: Yes Total Critical Care Time (in minutes): 45 Critical Care Statement: The care of this patient involved high complexity decision making to prevent further life threatening deterioration of the patient 's condition and/or to evaluate & treat vital organ system(s) failure or risk of failure.
[2018-09-10] MEDS ORDERED: oxyCODONE HCL 5 MG TABLET PO PRN ×2 (17:09→17:10)
[2018-09-10] MEDS ORDERED: ACETAMINOPHEN 325 MG TABLET (FP) PO PRN ×2 (17:09→17:10)
[2018-09-10] MEDS: CEFAZOLIN 1 GM/D5W 1 GM/50 ML BAG IVPB SCH (18:27)
[2018-09-10] MEDS ORDERED: NITROGLYCERIN 25MG/D5W 250ML 25 MG/250 ML ML IVPB SCH (18:30)
[2018-09-10] MEDS ORDERED: METOCLOPRAMIDE HCL INJECTION 10 MG/2 ML VIAL IVPUSH ONE (19:14)
[2018-09-10] MEDS: HYDROmorphone HCl 2 MG/ML VIAL IVPB PRN (19:56)
[2018-09-10 21:34] LABS: BASO % 5.5 % (0-2.0); EOS % 2.3 % (0-4.5); HEMATOCRIT 28.1 % (35.4-49); HEMOGLOBIN 9.2 GM/dL (11.7-16.9); MCH 29.2 pg (25.7-33.7); MCHC 32.8 g/dl (32.0-35.9); MEAN CELL VOLUME 89.1 fl (80-96); MEAN PLT VOLUME 11.1 fl (7.5-11.1); MONO % 2.4 % (3.8-10.2); NEUT % 82.8 % (42.8-82.8); RBC 3.15 M/mm3 (4.00-5.60); RDW 20.3 % (11.9-15.9)
[2018-09-10 21:42] LABS: WHITE BLOOD COUNT 36.2 K/mm3 (4.0-10.0)
[2018-09-10 22:00] LABS: INR 1.35 (0.83-1.09)
[2018-09-10] MEDS ORDERED: ANAGRELIDE HCL 0.5 MG CAPSULE PO SCH (22:00)
[2018-09-10 22:03] LABS: ACTIVATED PTT 32.8 SECONDS (25.2-36.5)
[2018-09-10] MEDS: SOTALOL HCL 80 MG TABLET (FP) PO SCH (22:15)
[2018-09-10 22:25] LABS: PLATELET COUNT 311 K/MM3 (134-434)
[2018-09-10 22:26] LABS: ANISOCYTOSIS 2+; PLATELET ESTIMATE ADEQUATE; TARGET CELLS FEW
[2018-09-11] MEDS: CEFAZOLIN 1 GM/D5W 1 GM/50 ML BAG IVPB SCH (03:26)
[2018-09-11] MEDS: HYDROmorphone HCl 2 MG/ML VIAL IVPB PRN (03:29)
[2018-09-11 06:21] LABS: EOS % 0.4 % (0-4.5); MCH 28.4 pg (25.7-33.7); MCHC 32.1 g/dl (32.0-35.9); MEAN CELL VOLUME 88.5 fl (80-96); MEAN PLT VOLUME 10.4 fl (7.5-11.1); MONO % 2.4 % (3.8-10.2); NEUT % 86.2 % (42.8-82.8); PLATELET COUNT 484 K/MM3 (134-434); RBC 3.16 M/mm3 (4.00-5.60); RDW 20.6 % (11.9-15.9)
[2018-09-11 06:47] LABS: ANION GAP 4 MMOL/L (8-16); BLOOD UREA NITROGEN 18 mg/dL (7-18); CALCIUM 8.8 mg/dL (8.5-10.1); CHLORIDE 108 mmol/L (98-107); CO2 30 mmol/L (21-32); CREATININE 0.4 mg/dL (0.55-1.3); GLUCOSE,RANDOM 141 mg/dL (74-106); MAGNESIUM 1.8 mg/dL (1.8-2.4); PHOSPHOROUS 4.6 mg/dL (2.5-4.9); POTASSIUM 4.8 mmol/L (3.5-5.1); SODIUM 142 mmol/L (136-145)
--- NOTE | 2018-09-11 07:36 | PN ---
Progress Note (short form) - Note Progress Note: POD#1 Pt seen this am. He has no complaints of SOB/difficulty swallowing. Last night the patient had vomiting and elevated BP, started of a nitro drip. According to the nursing his neck hematoma was unchanged overnight. Vital Signs Period Temp Pulse Resp BP Sys/Paredes Pulse Ox Last 24 Hr 97.4 F-98.4 F 64-92 15-20 126-171/55-87 98-100 GEN: A&0x3, following commands HEENT: anterior neck soft, trachea midline without any stridor with auscultation. Posterior neck/mandible area with firm palpable mass. Left side droop to corner of his mouth, smile asymmetrical and unable to puff out left side of cheek. Tongue midline. Able to raise eyebrows symetrical and keep eye shut with resistance. Neuro: moving all upper/lower extremities without difficulty and against resistance. CBC, BMP 02// 05:30 02// 05:30 A/P: 73 yo male s/p left CEA, POD #1 with hematoma, h/o PVD/HTN Continue to titrate nitro for elevated BP Npo for possible evacuation of hematoma and further monitoring Aspirin 81 mg held this am. Pt seen by hematology, 1 unit platlets transfused.
[2018-09-11] MEDS: SOTALOL HCL 80 MG TABLET (FP) PO SCH (08:29)
[2018-09-11] MEDS ORDERED: TAMSULOSIN HCL 0.4 MG CAP PO SCH (08:30)
[2018-09-11] MEDS ORDERED: amLODIPine BESYLATE 5 MG TABLET (FP) PO SCH (10:00)
[2018-09-11] MEDS ORDERED: ENOXAPARIN NA (PORCINE) 30 MG/0.3 ML DISP.SYRIN SQ SCH (10:00)
[2018-09-11] MEDS ORDERED: ASPIRIN 81 MG CHEWABLE TABLETS PO SCH (10:00)
[2018-09-11] MEDS ORDERED: CALCIUM 500MG/VIT-D 200 UNITS COMBO TABLET (FP) PO SCH (10:00)
--- NOTE | 2018-09-11 10:04 | OP ---
DATE OF OPERATION: 09/10/2018 SURGEON: Hernan Holloway MD PRODUCTION GRADER: TORI Tim PROCEDURE: Left carotid endarterectomy. PREOPERATIVE DIAGNOSIS: Left carotid stenosis. POSTOPERATIVE DIAGNOSIS: Left carotid stenosis. ANESTHESIA: General. ANESTHESIOLOGIST: Baldemar OPERATIVE FINDINGS: There was high bifurcation of the left common carotid. There was plaque at the origin of the left internal carotid artery with greater than 90% stenosis. DESCRIPTION OF PROCEDURE: Following routine patient identification with side and site verification, general anesthesia was induced. The left neck and chest were prepped with ChloraPrep. A time-out was performed. A skin incision was made in the upper neck near the angle of the jaw over the carotid artery, which had been mapped preoperatively with duplex imaging. The subcutaneous tissues were divided using cautery for hemostasis. The platysmal was divided. The anterior border of the sternocleidomastoid was freed with cautery and also retracted laterally. Crossing venous branches were ligated with silk ties and divided. The common carotid artery was mobilized at the base of the incision and secured with an umbilical tape. Distal dissection allowed identification of the bifurcation. The external carotid was mobilized and secured with a Vessel Loop. The internal carotid was then exposed to a point distal to atherosclerotic disease. The hypoglossal nerve was identified and left undisturbed in its bed. The internal carotid artery was felt to be of small caliber. Evaluation with a handheld Doppler showed there was flow within the vessel. The patient was systemically heparinized. The internal carotid was occluded with a Yasargil clip, the external with a Vessel Loop, and the common carotid with a vascular clamp. A longitudinal arteriotomy was made from the common to the internal carotid artery to a point distal to occluding plaque. Back bleeding from the distal internal carotid artery was pulsatile. Endarterectomy was performed to remove all plaque from the common, internal, and external branches. Loose media fibers were removed. The distal intima was tacked down with interrupted sutures of 7-0 Prolene to prevent dissection. The arteriotomy was then closed with a thin collagen-coated Dacron patch, which was sutured to the arterial martines with 6-0 Prolene sutures. Prior to completion of the suture line, the artery was allowed to back bleed and flush, and the limb was filled with heparin saline solution. The suture line was completed , and flow was restored first to the external and then the internal carotid artery. Evaluation of the handheld Doppler revealed good flow in all branches. Surgicel was applied to control any suture site bleeding. The hemostasis was achieved. The wounds were irrigated and closed with interrupted suture of 3-0 Vicryl and skin she. Sterile dressings were applied. The patient was awakened from anesthesia and extubated and found to be intact neurologic condition. He was transferred to the ICU in stable condition. Rajinder MEEHAN/[id number] MTDD
[2018-09-11] MEDS ORDERED: ONDANSETRON 4 MG/2 ML VIAL IVPB PRN (11:58)
[2018-09-11] MEDS ORDERED: NICARDIPINE 25 MG in DEXTROSE 5%-WATER - 240 ML IVPB SCH ×2 (12:00→19:48)
[2018-09-11] MEDS ORDERED: RAPID SEQUENCE INTUBATION KIT NR ONE (12:40)
[2018-09-11] MEDS ORDERED: PROPOFOL 200 MG/20 ML VIAL IVPUSH ONE (12:41)
[2018-09-11] MEDS ORDERED: SUCCINYLCHOLINE CHLORIDE 200 MG/10 ML VIAL IVPUSH ONE (12:41)
[2018-09-11] MEDS ORDERED: PROPOFOL 1,000,000 MCG/100 ML VIAL IVPUSH SCH (12:45)
[2018-09-11] MEDS ORDERED: HEPARIN NA (PORCINE) 5,000 UNITS/ML 1ML VIAL ONE ×2 (12:53→12:54)
[2018-09-11] MEDS ORDERED: LIDOCAINE HCL 1%, 10 MG/ML (20ML VIAL) ONE (12:54)
[2018-09-11] MEDS ORDERED: PAPAVERINE HCL 30 MG/1 ML 10 ML VIAL NR ONE (12:54)
[2018-09-11] MEDS ORDERED: PROPOFOL 20 ML ONE (13:06)
[2018-09-11] MEDS ORDERED: ROCURONIUM BROMIDE 50 MG/5 ML VIAL ONE ×2 (13:07→17:18)
[2018-09-11] MEDS ORDERED: ceFAZolin SODIUM 1 GM VIAL ONE (13:31)
[2018-09-11] MEDS ORDERED: ceFAZolin SODIUM 1 GM VIAL IVPB ONE (13:32)
[2018-09-11] MEDS ORDERED: PHENYLEPHRINE HCL 10 MG/1 ML SINGLE DOSE VIAL ONE ×2 (13:44→15:58)
[2018-09-11] MEDS ORDERED: BACITRACIN 50,000 UNITS VIAL TP ONE (13:48)
[2018-09-11] MEDS ORDERED: POVIDONE-IODINE OINTMENT 10% - 28.4 GM TUBE ONE ×2 (13:55→16:53)
--- NOTE | 2018-09-11 14:00 | PN ---
Teaching Attending Note Name of Resident: Reba Cotton ATTENDING PHYSICIAN STATEMENT I saw and evaluated the patient. I reviewed the resident's note and discussed the case with the resident. I agree with the resident's findings and plan as documented. SUBJECTIVE: Pt seen and examined in the ICU. Post op hematoma stable this AM but then coughed with expansion of hematoma with new dysphagia and voice changes. Pt electively intubated by anesthesia and brought back to OR for exploration. OBJECTIVE: Vital Signs Period Temp Pulse Resp BP Sys/Paredes Pulse Ox Last 24 Hr 97.1 F-98.4 F 64-92 15-20 139-171/57-87 100-100 Intake & Output 09/08/18 09/09/18 09/10/18 09/11/18 23:59 23:59 23:59 23:59 Intake Total 950 1659 Output Total 400 350 Balance 550 1309 Gen: intubated, sedated Neck: left neck edema Heart: RRR Lung: decreased breath sounds at the bases Abd: soft, nontender Ext: no edema CBC, BMP 09/11/18 05:30 09/11/18 05:30 Active Medications Acetaminophen (Tylenol -) 325 mg PO Q4H PRN PRN Reason: PAIN SCALE 1-5 Stop: 09/13/18 17:08 Acetaminophen (Tylenol -) 650 mg PO Q4H PRN PRN Reason: PAIN SCALE 6-10 Stop: 09/13/18 17:09 Amlodipine Besylate (Norvasc -) 5 mg PO DAILY [facility] Last Admin: 09/11/18 09:26 Dose: 5 mg Calcium Carbonate/Cholecalciferol (Os-Kristopher 500+D -) 2 tab PO DAILY [facility] Last Admin: 09/11/18 09:26 Dose: Not Given Hydromorphone HCl (Dilaudid Vial -) 2 mg IVPB Q3H PRN PRN Reason: PAIN LEVEL 6-10 Last Admin: 09/11/18 03:29 Dose: 2 mg Dextrose/Sodium Chloride (D5-1/2ns -) 1,000 mls @ 75 mls/hr IV ASDIR [facility] Last Admin: 09/10/18 15:30 Dose: 75 mls/hr Nicardipine HCl 25 mg/ (Dextrose) 250 mls @ 25 mls/hr IVPB TITR [facility]; Protocol Propofol (Diprivan -) 1,000,000 mcg in 100 mls @ 1.837 mls/hr IVPUSH TITR [facility]; Protocol Ondansetron HCl (Zofran Injection) 8 mg IVPB Q6H PRN PRN Reason: NAUSEA Oxycodone HCl (Roxicodone -) 5 mg PO Q4H PRN PRN Reason: PAIN SCALE 1-5 Oxycodone HCl (Roxicodone -) 10 mg PO Q4H PRN PRN Reason: PAIN SCALE 6-10 Sotalol HCl (Betapace -) 80 mg PO BID@0800,2000 [facility] Last Admin: 09/11/18 08:29 Dose: 80 mg Tamsulosin HCl (Flomax -) 0.4 mg PO DAILY@0830 [facility] Last Admin: 09/11/18 08:29 Dose: Not Given ASSESSMENT AND PLAN: Left Carotid Stenosis s/p L CEA Post op Hematoma/Bleeding Acute Respiratory Failure Atrial Fibrillation Myeloproliferative Disorder HTN COPD - back to OR for exploration - transfuse PRBC, platelets - monitor CBC - BP control - pain control - rate control - holding anticoagulation - will need to assess for cuff leak when ready for extubation - DVT prophylaxis - continue ICU monitoring critical care time spent in reviewing chart, evaluating patient and formulating plan 35 min
--- NOTE | 2018-09-11 14:13 | CONSULT ---
Consult Consult Specialty:: Hematology-Oncology Referred by:: Dr. Holloway Reason for Consultation:: MPD/MDS overlap syndrome - History of Present Illness Chief Complaint: Long standing MPD/MDS overlap on various meds who underwent left carotid endarterectomy. Developed hematoma post op. - History Source History Provided By: Patient, Medical Record - Past Medical History Cardio/Vascular: Yes: AFIB, HTN Pulmonary: Yes: COPD - Past Surgical History Past Surgical History: Yes: Hernia Repair - Alcohol/Substance Use Hx Alcohol Use: No - Smoking History Smoking history: Never smoked Have you smoked in the past 12 months: No Aproximately how many cigarettes per day: 0 If you are a former smoker, when did you quit?: 1 YR - Social History Usual Living Arrangement: Alone Home Medications - Allergies Allergies/Adverse Reactions: Allergies Allergy/AdvReac Type Severity Reaction Status Date / Time No Known Allergies Allergy Verified 09/07/18 14:05 - Home Medications Home Medications: Ambulatory Orders Tamsulosin HCl 0.4 mg PO DAILY 08/31/12 Anagrelide HCl [Agrylin -] 1 mg PO BID 04/11/14 Aspirin [ASA -] 81 mg PO DAILY 04/11/14 Sotalol HCl [Betapace -] 80 mg PO BID@0800,2000 #60 tablet 07/14/16 Amlodipine Besylate [Norvasc -] 5 mg PO DAILY 02/28/17 Calcium Carbonate/Vitamin D3 [Calcium 500-Vit D3 400 Tablet] 2 tab PO DAILY Review of Systems - Review of Systems Constitutional: reports: Unintentional Wgt. Loss, Weakness. denies: Night Sweats Eyes: denies: Double Vision, Photophobia HENT: reports: Difficult Swallowing Neck: reports: Decreased ROM, Pain on Movement, Stiffness, Tenderness, Other ( hematoma post surgery) Cardiovascular: denies: Shortness of Breath Respiratory: reports: Exercise Intolerance, SOB on Exertion Gastrointestinal: reports: No Symptoms Genitourinary: reports: Frequency. denies: Dysuria, Flank Pain, Hematuria Musculoskeletal: reports: Back Pain. denies: Extremity Pain Integumentary: denies: Erythema, Rash Neurological: reports: No Symptoms Endocrine: reports: No Symptoms Hematology/Lymphatic: reports: Easily Bruised. denies: Swollen Glands Psychiatric: reports: No Symptoms Physical Exam Vital Signs: Vital Signs Temperature 97.1 F L 09/11/18 10:00 Pulse Rate 90 09/11/18 12:00 Respiratory Rate 17 09/11/18 12:00 Blood Pressure 162/85 09/11/18 12:00 O2 Sat by Pulse Oximetry (%) 100 09/11/18 10:00 Constitutional: Yes: Moderate Distress Eyes: Yes: PERRL. No: Ptosis HENT: Yes: Normocephalic, Hoarseness. No: Epistaxis, Thrush Neck: Yes: Other (s/p surgery ; left neck hematoma) Cardiovascular: Yes: Regular Rate and Rhythm Respiratory: Yes: Regular Gastrointestinal: Yes: Normal Bowel Sounds, Soft. No: Hepatomegaly, Splenomegaly Renal/: No: CVA Tenderness - Left, CVA Tenderness - Right, Hematuria Musculoskeletal: Yes: Back Pain Extremities: No: Calf Tenderness Edema: No Neurological: Yes: WNL ...Motor Strength: WNL Psychiatric: Yes: WNL Labs: CBC, BMP 09/11/18 05:30 09/11/18 05:30 Problem List - Problems (1) Carotid stenosis, left Assessment/Plan: 90% left carotid occlusion s/p left CEA. Hematoma post op Had been on ASA prior to surgical procedure Code(s): I65.22 - OCCLUSION AND STENOSIS OF LEFT CAROTID ARTERY (2) HTN (hypertension) Code(s): I10 - ESSENTIAL (PRIMARY) HYPERTENSION Qualifiers: Hypertension type: essential hypertension Qualified Code(s): I10 - Essential (primary) hypertension (3) MDS (myelodysplastic syndrome) Assessment/Plan: Patient has overlap syndrome of MDS/MPD. Has been on multiple meds in past. Recently on anagrelide and ASA. Anagrelide discontinued 09/08, ASA continued. Transfusion dependent and received 2 units of packed cells on 09/08. Surgery with left CEA 09/10 and developed post op hematoma in neck. Has received 2 units of platelets 09/10 and additional 2 units to be administered on 09/11 . 1/3 of MPD plateletes are dysfunctional and MDS platelets likewise can be dysfunctional. In addition, patient had been on ASA prior to procedure. All predispose to thrombocytopathy. INR-1.35, PTT-32.8. No intervention required . Code(s): D46.9 - MYELODYSPLASTIC SYNDROME, UNSPECIFIED (4) Anemia Assessment/Plan: Secondary to Overlap MPD/MDS Transfusion dependent . Trial of erythropoietin a and revlimid in past unsuccessful. Code(s): D64.9 - ANEMIA, UNSPECIFIED Qualifiers:
[2018-09-11] MEDS ORDERED: MIDAZOLAM HCL 2 MG/2 ML SINGLE DOSE VIAL ONE (14:17)
[2018-09-11 14:21] LABS: TARGET CELLS FEW
[2018-09-11] MEDS ORDERED: METOPROLOL TARTRATE 5 MG/5 ML VIAL IVPUSH PRN ×2 (14:47→19:48)
[2018-09-11] MEDS ORDERED: ACETAMINOPHEN 650 MG SUPP.RECT PR PRN ×2 (14:50→19:48)
[2018-09-11] MEDS ORDERED: SODIUM CHLORIDE 1,000 ML IV SCH (15:00)
[2018-09-11] MEDS ORDERED: DESMOPRESSIN ACETATE 4 MCG/ML AMP IVPB ONE (15:24)
[2018-09-11 15:56] LABS: ANION GAP 6 MMOL/L (8-16); BLOOD UREA NITROGEN 16 mg/dL (7-18); CALCIUM 8.8 mg/dL (8.5-10.1); CHLORIDE 108 mmol/L (98-107); CO2 28 mmol/L (21-32); CREATININE 0.6 mg/dL (0.55-1.3); GLUCOSE,RANDOM 127 mg/dL (74-106); POTASSIUM 4.8 mmol/L (3.5-5.1); SODIUM 143 mmol/L (136-145)
[2018-09-11] MEDS ORDERED: THROMBIN (BOVINE) 5,000 UNIT VIAL TP ONE (16:01)
[2018-09-11 16:05] LABS: BASO % 2.5 % (0-2.0); EOS % 0.2 % (0-4.5); HEMATOCRIT 28.1 % (35.4-49); HEMOGLOBIN 8.8 GM/dL (11.7-16.9); LYMPH % 3.4 % (8-40); MCH 28.1 pg (25.7-33.7); MCHC 31.5 g/dl (32.0-35.9); MEAN CELL VOLUME 89.1 fl (80-96); MONO % 4.2 % (3.8-10.2); NEUT % 89.7 % (42.8-82.8); RBC 3.15 M/mm3 (4.00-5.60); RDW 19.7 % (11.9-15.9)
[2018-09-11 16:11] LABS: WHITE BLOOD COUNT 41.2 K/mm3 (4.0-10.0)
[2018-09-11 16:16] LABS: INR 1.18 (0.83-1.09)
--- NOTE | 2018-09-11 17:21 | PN ---
Progress Note (short form) - Note Progress Note: SUBJECTIVE Patient seen and examined at the bedside. Reports that his pain is adequately controlled. No shortness of breath. Patient with swelling on the left side of his neck. In anticipation for possible hematoma evacuation, patient was transfused two units of platelets, aspirin was held, and he was kept NPO. He later complained of difficulty swallowing and sensation of mass in the back of his throat, which corresponded with expanding hematoma. Patient coughed, and bleeding extended through the gauze dressing on his neck that was recently changed. Vascular surgery team made the decision to take patient back to the OR. Patient was intubated around 12:45pm while in the ICU in preparation for the procedure. Per surgical PA no active bleed was found, though there was a significant clot and evacuation of the hemotoma. Patient brought back to the ICU and still intubated, however, found to still be bleeding. PRBCs, DDAVP, and platelets were ordered per recommendations from hematology. CXR with opacification of the RUL, significant for atelectasis. Again evaluated by vascular surgery team who brought patient back to the OR for the second time today. OBJECTIVE Vital Signs Temperature 97.1 F L 09/11/18 10:00 Pulse Rate 86 09/11/18 14:00 Respiratory Rate 14 09/11/18 14:32 Blood Pressure 104/53 L 09/11/18 14:00 O2 Sat by Pulse Oximetry (%) 100 09/11/18 10:00 General: Intubated and sedated Head: No signs of trauma Eyes: EOMI, sclera anicteric ENT: Moist mucus membranes Neck: bulge on left side of neck, bleeding Lungs: diminished breath sounds at bilateral bases Cardio: Regular rhythm, S1 and S2 present Abdomen: Soft, nontender Extremities: Normal range of motion, Distal pulses present SKIN: Warm, Dry, normal turgor Neurologic: Sedated ASSESSMENT 73yo M with myeloproliferative disorder, hypertension, Afib, COPD status post left carotid endarterectomy on 09/11/18. Course complicated by expanding neck hematoma as described above. Left the unit to be taken to the OR. PLAN POD #1 -Hematoma -Pain control: Dilauded 2 mg q3hr PRN, Percocet 1 or 2 mg po q4hr PRN -surgery following -head of bed elevated 30-45 degree -aspiration precautions -Dexamethasone q8h NEURO Propofol drip while intubated CV History of hypertension, AFib -Was on nitro drip, switched to cardene -hold home meds while NPO HEME Myeloproliferative disorder -dependent on transfusions, last transfused 09/07/18 -Heme/onc following -Normal transfusion threshold GI Nausea -Zofran dose increased PULM RUL Atelectasis History of COPD -Intubated -assess for cuff leak when ready for extubation FEN D5-1/2NS @75cc/hr Follow electrolytes, replete as needed NPO PPX VTE: SCD's GI: Protonix #Disposition: Continue to monitor in the ICU #Full Code
--- NOTE | 2018-09-11 17:30 | OP ---
Operative Note - Note: Operative Date: 09/11/18 (1 PM) Pre-Operative Diagnosis: Left neck hematoma following carotid endarterectomy Operation: Exploration left neck wound. Placement of drain Findings: Hematoma overlying carotid artery. No active arterial or venous bleeding seen Post-Operative Diagnosis: Same as Pre-op Surgeon: Hernan Holloway Director Of Compensation: Irasema Tim Anesthesiologist/WELDING MACHINE OPERATOR SUBMERGED ARC: Lani Mcdermott Anesthesia: General Estimated Blood Loss (mls): 150 (clot) Drains & Tubes with Location: J-P in wound
--- NOTE | 2018-09-11 17:32 | OP ---
Operative Note - Note: Operative Date: 09/11/18 Pre-Operative Diagnosis: Recurrent hemorrhage left neck wound Operation: Exploration left neck wound, suture carotid artery Findings: Fresh clot over carotid artery. Small bleeding site at apex of patch Surgeon: Hernan Holloway Pony Trimmer: Irasema Tim Anesthesiologist/DRY FINISHER: Dov Quiñonez Anesthesia: General Estimated Blood Loss (mls): 50
--- NOTE | 2018-09-11 17:33 | SURG ---
Surgery Restrooms Or Lounges Maid Note Restrooms Or Lounges Maid: Irasema Tim PA-C Date of Service: 09/10/18 Diagnosis: Left Carotid stenosis Procedure: Left carotid endarterectomy I was present for the entirety of the operative procedure. For further detail, please refer to operative report. Visit type - Case Type Case Type: Scheduled - Emergency Emergency Visit: No - New patient This patient is new to me today: Yes Date on this admission: 09/10/18
[2018-09-11 17:59] LABS: PLATELET COUNT 649 K/MM3 (134-434)
[2018-09-11 18:00] LABS: MEAN PLT VOLUME 10.1 fl (7.5-11.1)
[2018-09-11 18:10] LABS: ANISOCYTOSIS 1+
[2018-09-11 18:11] LABS: MACROCYTOSIS 1+
[2018-09-11 18:12] LABS: PLATELET ESTIMATE MOD INCREASED
[2018-09-11] MEDS ORDERED: PANTOPRAZOLE SODIUM 40 MG VIAL IVPUSH SCH (19:00)
[2018-09-11] MEDS ORDERED: fentaNYL CITRATE 250 MCG/5 ML VIAL ONE ×2 (19:29→23:59)
[2018-09-11] MEDS ORDERED: HYDROmorphone HCl 2 MG/ML VIAL IVPB PRN (19:48)
[2018-09-11] MEDS: SODIUM CHLORIDE 1,000 ML IV SCH (20:14)
[2018-09-11] MEDS: PROPOFOL 1,000,000 MCG/100 ML VIAL IVPUSH SCH (20:14)
[2018-09-11] MEDS: FENTANYL INJECTION 500 MCG in DEXTROSE 5%-WATER - 90 ML IVPB SCH (20:14)
[2018-09-11] MEDS ORDERED: CEFAZOLIN 1 GM/D5W 1 GM/50 ML BAG IVPB SCH ×2 (21:30)
[2018-09-11] MEDS: DEXAMETHASONE SOD PHOSPHATE 10 MG/1 ML VIAL IVPUSH SCH (21:43)
--- NOTE | 2018-09-11 21:51 | PN ---
Progress Note (short form) - Note Progress Note: ICU progress note: Cardiology9:40pm 73 yr old man AA gentleman with a hx of HTN, MPD, hx of paroxysmal Afib, hemachromatosis, left ventricular diastolic dysfunction, recurring anemia, thrombocytopenia and critical carotid artery stenosis, underwent left carotid end artectomy. Patient after a bout of coughing developed hematoma over the left neck and patient was intubated as a precautionary measure for airway protection. Post- operatively he was hypertensive requiring nitroprusside. Presently patient is sedated and is hemodynamically stable. Patient received 5 unit of platelets, with one pending, 1 unit of DDAVP, and 2 units of prbcs. He required re-op to locate the source of the bleed. Active Medications Acetaminophen (Tylenol Suppository -) 650 mg ND Q6H PRN PRN Reason: FEVER Dexamethasone Sodium Phosphate (Decadron Injection -) 10 mg IVPUSH Q8H-IV ABBY Last Admin: 09/11/18 21:43 Dose: 10 mg Hydromorphone HCl (Dilaudid Vial -) 1 mg IVPB Q6H PRN PRN Reason: PAIN LEVEL 6-10 Fentanyl 500 mcg/ Dextrose 100 mls @ 5 mls/hr IVPB TITR ABBY; Protocol Last Titration: 09/11/18 21:43 Dose: 50 mcg/hr, 10 mls/hr Nicardipine HCl 25 mg/ (Dextrose) 250 mls @ 25 mls/hr IVPB TITR ABBY; Protocol Last Admin: 09/11/18 20:15 Dose: Not Given Propofol (Diprivan -) 1,000,000 mcg in 100 mls @ 1.837 mls/hr IVPUSH TITR ABBY; Protocol Last Admin: 09/11/18 20:14 Dose: 50 mcg/kg/min, 18.371 mls/hr Sodium Chloride (Normal Saline -) 1,000 mls @ 75 mls/hr IV ASDIR ABBY Last Admin: 09/11/18 20:14 Dose: 75 mls/hr Metoprolol Tartrate (Lopressor Injection -) 5 mg IVPUSH Q6H PRN PRN Reason: HYPERTENSION Mupirocin (Bactroban Ointment (For Decolonization) -) 1 applic NS BID ABBY Stop: 09/16/18 21:59 Pantoprazole Sodium (Protonix Iv) 40 mg IVPUSH DAILY ABBY Last Vital Signs Temp Pulse Resp BP Pulse Ox 99.3 F 85 18 140/58 L 98 09/11/18 18:16 09/11/18 20:00 09/11/18 21:19 09/11/18 20:00 09/11/18 19:51 Physical exam Neck: no JVD on right side,HRJ -ve. swelling left side with drainage tube with minimal drainage Heart: PMI in 5th intercostal space, no heaves or thrills, S1, S2 are normal. Grade 2/6 ejection systolic murmur in 2nd right intercostal space no diastolic murmur or gallops heard. Lungs: clear on auscultation b/l. Abdomen: soft, nontender, no hepatomegaly or palpable masses. 2+ spleenomegaly Ext: no calf tenderness or dependent edema, pulses are normal CBC, BMP 09/11/18 15:25 09/11/18 15:25 09/11/18 09/11/18 14:30 15:25 PT with INR 14.00 H INR 1.18 H Fibrinogen 212.0 L Impression: 1. Hypertension, Hypertensive cardiovascular disease, currently normotensive 2. Post-operative bleeding from surgical site. 3. Status post- left carotid end artectomy 4. Myeloproliferative disorder. 5. History of moderate tricuspid regurgitation. Recommendation: 1. ECG today and in the morning 2. Troponin levels x2 3. Follow up chest xray Prognosis: Guarded
[2018-09-11] MEDS: MUPIROCIN 2% TOPICAL OINTMENT FOR DECOLONIZATION NS SCH (21:53)
[2018-09-11] MEDS ORDERED: DEXAMETHASONE SOD PHOSPHATE 10 MG/1 ML VIAL IVPUSH SCH (22:00)
[2018-09-11] MEDS ORDERED: MUPIROCIN 2% TOPICAL OINTMENT FOR DECOLONIZATION NS SCH (22:00)
[2018-09-11] MEDS ORDERED: CHLORHEXIDINE GLUCONATE 4% CLEANSER FOR DECOLONIZATION TP SCH (22:00)
[2018-09-11 22:47] LABS: HEMATOCRIT 23.8 % (35.4-49); HEMOGLOBIN 7.8 GM/dL (11.7-16.9); MCH 28.9 pg (25.7-33.7); MEAN CELL VOLUME 87.7 fl (80-96); RBC 2.71 M/mm3 (4.00-5.60); RDW 18.7 % (11.9-15.9)
[2018-09-11 22:53] LABS: WHITE BLOOD COUNT 33.8 K/mm3 (4.0-10.0)
[2018-09-11 23:20] LABS: INR 1.27 (0.83-1.09)
[2018-09-11 23:23] LABS: ACTIVATED PTT 31.9 SECONDS (25.2-36.5)
[2018-09-11 23:49] LABS: MEAN PLT VOLUME 10.6 fl (7.5-11.1); PLATELET COUNT 587 K/MM3 (134-434)
[2018-09-12] MEDS: DEXAMETHASONE SOD PHOSPHATE 10 MG/1 ML VIAL IVPUSH SCH ×3 (03:22→18:38)
[2018-09-12] MEDS ORDERED: fentaNYL CITRATE 250 MCG/5 ML VIAL ONE ×3 (05:57→20:08)
[2018-09-12 06:55] LABS: EOS % 0.1 % (0-4.5); HEMATOCRIT 22.7 % (35.4-49); HEMOGLOBIN 7.6 GM/dL (11.7-16.9); LYMPH % 6.4 % (8-40); MCH 28.9 pg (25.7-33.7); MCHC 33.3 g/dl (32.0-35.9); MEAN PLT VOLUME 10.6 fl (7.5-11.1); MONO % 1.2 % (3.8-10.2); NEUT % 90.3 % (42.8-82.8); PLATELET COUNT 571 K/MM3 (134-434); RBC 2.61 M/mm3 (4.00-5.60); RDW 18.7 % (11.9-15.9); WHITE BLOOD COUNT 23.4 K/mm3 (4.0-10.0)
[2018-09-12] MEDS: FENTANYL INJECTION 500 MCG in DEXTROSE 5%-WATER - 90 ML IVPB SCH ×3 (07:00→21:55)
[2018-09-12 07:14] LABS: ALBUMIN 3.5 g/dl (3.4-5.0); ALK PHOS 62 U/L (45-117); ANION GAP 5 MMOL/L (8-16); BILIRUBIN,TOTAL 0.8 mg/dL (0.2-1); BLOOD UREA NITROGEN 25 mg/dL (7-18); CALCIUM 7.7 mg/dL (8.5-10.1); CHLORIDE 109 mmol/L (98-107); CO2 28 mmol/L (21-32); CREATININE 0.7 mg/dL (0.55-1.3); GLUCOSE,RANDOM 108 mg/dL (74-106); PHOSPHOROUS 4.4 mg/dL (2.5-4.9); POTASSIUM 5.7 mmol/L (3.5-5.1); SGOT/AST 16 U/L (15-37); SGPT/ALT 13 U/L (13-61); SODIUM 141 mmol/L (136-145); TOT PROT 5.7 g/dl (6.4-8.2)
--- NOTE | 2018-09-12 07:29 | PN ---
Progress Note (short form) - Note Progress Note: Patient seen and examined Intubated , sedated . Events noted Second surgical procedure for bleeding site sutured Currently receiving packed cells with fall in Hct to 23% Has received 6 units of platelets and DDAVP to date. Left neck are less swollen s/p evacuation of hematoma and surgery Current wound dressing site dry withminimal J-P drainage . Dressing changed 2 x over night Last Vital Signs Temp Pulse Resp BP Pulse Ox 99.9 F H 73 16 122/60 98 09/12/18 06:00 09/12/18 06:00 09/12/18 06:40 09/12/18 06:00 09/11/18 19:51 HEENT: VIVIAN, EOM Intact Oropharynx:intubated Cor: RSR, systolic murmur Lungs: Clear to P&A Abd: Soft, Normal bowel sounds, No organomegaly Ext:No significant edema Skin: No rashes, Integument intact CBC, BMP 09/12/18 05:30 Current Medications Generic Name Dose Route Start Last Admin Trade Name Freq PRN Reason Stop Dose Admin Acetaminophen 650 mg 09/11/18 19:48 Tylenol Suppository - IA Q6H PRN FEVER Dexamethasone Sodium Phosphate 10 mg 09/11/18 22:00 09/12/18 03:22 Decadron Injection - IVPUSH 10 mg Q8H-IV ABBY Administration Hydromorphone HCl 1 mg 09/11/18 19:48 Dilaudid Vial - IVPB Q6H PRN PAIN LEVEL 6-10 Fentanyl 500 mcg/ Dextrose 100 mls @ 5 mls/hr 09/11/18 19:15 09/11/18 21:43 IVPB 50 mcg/hr TITR ABBY 10 mls/hr Titration Protocol 25 MCG/HR Nicardipine HCl 25 mg/ 250 mls @ 25 mls/hr 09/11/18 19:48 09/11/18 20:15 Dextrose IVPB Not Given TITR ABBY Protocol 2.5 MG/HR Propofol 1,000,000 mcg in 100 mls @ 1.837 mls/hr 09/11/18 19:48 09/11/18 20: 14 Diprivan - IVPUSH 50 mcg/kg/min TITR ABBY 18.371 mls/hr Administration Protocol 5 MCG/KG/MIN Sodium Chloride 1,000 mls @ 75 mls/hr 09/11/18 19:48 09/11/18 20:14 Normal Saline - IV 75 mls/hr ASDIR ABBY Administration Metoprolol Tartrate 5 mg 09/12/18 09:00 Lopressor Injection - IVPUSH Q6H-IV ABBY Mupirocin 1 applic 09/11/18 22:00 09/11/18 21:53 Bactroban Ointment (For Decolonization) - NS 09/16/18 21:59 1 applic BID ABBY Administration Pantoprazole Sodium 40 mg 09/12/18 10:00 Protonix Iv IVPUSH DAILY ABBY Impression: Intubated / sedated MDS/MPD S/P left CEA S/P re-exploration x 2 - evacuation of hematoma, and suturing of bleeding site s/p 6 units of platelets and DDAVP for thrombocytopathy secondary to ASA and underlying MPD /MDS ANEMIA-transfuse to Hct > 25% Hyperkalemia Suggest Maintain Hct > 25 %; Hb >8.0 gm Obtain plasma K+ as patient may have pseudohyperkalemia from thrombocytosis Use plasma K+ level to treat or not to treat K+ level Patient with thrombocytopathy from ASA and underlying hematologic disorder ( MDS /MPD overlap syndrome) . If bleeding re-occurs- platelets are treatment of choice. Call prn Problem List - Problems (1) Carotid stenosis, left Code(s): I65.22 - OCCLUSION AND STENOSIS OF LEFT CAROTID ARTERY (2) HTN (hypertension) Code(s): I10 - ESSENTIAL (PRIMARY) HYPERTENSION Qualifiers: Hypertension type: essential hypertension Qualified Code(s): I10 - Essential (primary) hypertension (3) MDS (myelodysplastic syndrome) Code(s): D46.9 - MYELODYSPLASTIC SYNDROME, UNSPECIFIED (4) Anemia Code(s): D64.9 - ANEMIA, UNSPECIFIED Qualifiers:
[2018-09-12 07:34] LABS: INR 1.26 (0.83-1.09); PROTHROMBIN TIME (PATIENT) 14.9 SEC (9.7-13.0)
[2018-09-12 07:36] LABS: ACTIVATED PTT 32.2 SECONDS (25.2-36.5)
--- NOTE | 2018-09-12 08:02 | PN ---
Physical Exam: SUBJECTIVE: Patient seen and examined intubated sedated . on propofol 50 and fentanyl 100 mcg/hr surgery wound change 3 times over night Hgb this Am 7.6 , recieved 1 PRBC improved to 8.5 Keep Hgb > 8 plt transfuse as needed if start bleeding CXR improved repeat CBc this afternoon OBJECTIVE: Vital Signs Period Temp Pulse Resp BP Sys/Paredes Pulse Ox Last 24 Hr 97.1 F-99.9 F 73-92 14-20 104-166/51-85 10-100 General: Intubated and sedated Head: NC /AT ENT: Moist mucus membranes, intubated Neck: bulge on left side of neck, oozing Lungs: diminished breath sounds at bilateral bases Cardio: Regular rhythm, 2/6 systolic murmur RUSB , Abdomen: Soft, nontender Extremities: Normal range of motion, Distal pulses present SKIN: Warm, Dry, normal turgor Neurologic: Sedated Laboratory Results - last 24 hr 09/10/18 09/11/18 09/11/18 12:53 05:30 14:30 WBC RBC Hgb Hct MCV MCH MCHC RDW Plt Count MPV Absolute Neuts (auto) Total Counted 100 Neutrophils % Neutrophils % (Manual) 96.0 H* Band Neutrophils % 2.0 Lymphocytes % Lymphocytes % (Manual) 0.0 L Monocytes % Monocytes % (Manual) 1 L Eosinophils % Eosinophils % (Manual) 1.0 Basophils % Nucleated RBC % Differential Comment Hypochromia 1+ Platelet Estimate Platelet Comment Rare giant plts Polychromasia Basophilic Stippling 1+ Anisocytosis Macrocytosis Target Cells Few PT with INR INR PTT (Actin FS) Fibrinogen 212.0 L Sodium Potassium Chloride Carbon Dioxide Anion Gap BUN Creatinine Creat Clearance w eGFR Random Glucose Calcium Phosphorus Magnesium Total Bilirubin AST ALT Alkaline Phosphatase Creatine Kinase Troponin I Total Protein Albumin Blood Type B POSITIVE Antibody Screen Negative Crossmatch See Detail Crossmatch IS Only See Detail 09/11/18 09/11/18 09/11/18 14:30 15:25 15:25 WBC 41.2 H* RBC 3.15 L Hgb 8.8 L Hct 28.1 L MCV 89.1 MCH 28.1 MCHC 31.5 L RDW 19.7 H Plt Count 649 H D MPV 10.1 Absolute Neuts (auto) 36.9 H Total Counted 100 Neutrophils % 89.7 H Neutrophils % (Manual) 90.0 H D Band Neutrophils % 3.0 Lymphocytes % 3.4 L D Lymphocytes % (Manual) 3.0 L D Monocytes % 4.2 Monocytes % (Manual) 4 D Eosinophils % 0.2 Eosinophils % (Manual) Basophils % 2.5 H D Nucleated RBC % 0 Differential Comment Man diff performed Hypochromia Platelet Estimate Mod increased Platelet Comment Slide scanned. Polychromasia 1+ Basophilic Stippling 1+ Anisocytosis 1+ Macrocytosis 1+ Target Cells PT with INR Cancelled INR Cancelled PTT (Actin FS) 32.5 Fibrinogen Sodium 143 Potassium 4.8 Chloride 108 H Carbon Dioxide 28 Anion Gap 6 L BUN 16 Creatinine 0.6 Creat Clearance w eGFR > 60 Random Glucose 127 H Calcium 8.8 Phosphorus Magnesium Total Bilirubin AST ALT Alkaline Phosphatase Creatine Kinase Troponin I Total Protein Albumin Blood Type Antibody Screen Crossmatch Crossmatch IS Only 09/11/18 09/11/18 09/11/18 15:25 22:20 22:20 WBC 33.8 H* RBC 2.71 L Hgb 7.8 L Hct 23.8 L D MCV 87.7 MCH 28.9 MCHC 33.0 RDW 18.7 H Plt Count 587 H MPV 10.6 Absolute Neuts (auto) Total Counted Neutrophils % Neutrophils % (Manual) Band Neutrophils % Lymphocytes % Lymphocytes % (Manual) Monocytes % Monocytes % (Manual) Eosinophils % Eosinophils % (Manual) Basophils % Nucleated RBC % Differential Comment Hypochromia Platelet Estimate Platelet Comment Polychromasia Basophilic Stippling Anisocytosis Macrocytosis Target Cells PT with INR 14.00 H INR 1.18 H PTT (Actin FS) Fibrinogen Sodium Potassium Chloride Carbon Dioxide Anion Gap BUN Creatinine Creat Clearance w eGFR Random Glucose Calcium Phosphorus Magnesium Total Bilirubin AST ALT Alkaline Phosphatase Creatine Kinase 59 Troponin I < 0.02 Total Protein Albumin Blood Type Antibody Screen Crossmatch Crossmatch IS Only 09/11/18 09/11/18 09/12/18 22:20 22:20 05:30 WBC RBC 2.61 L Hgb 7.6 L Hct 22.7 L MCV 87.0 MCH 28.9 MCHC 33.3 RDW 18.7 H Plt Count 571 H MPV 10.6 Absolute Neuts (auto) 21.2 H Total Counted Neutrophils % 90.3 H Neutrophils % (Manual) Band Neutrophils % Lymphocytes % 6.4 L D Lymphocytes % (Manual) Monocytes % 1.2 L Monocytes % (Manual) Eosinophils % 0.1 Eosinophils % (Manual) Basophils % 2.0 Nucleated RBC % Differential Comment Hypochromia Platelet Estimate Platelet Comment Polychromasia Basophilic Stippling Anisocytosis Macrocytosis Target Cells PT with INR 15.00 H INR 1.27 H PTT (Actin FS) 31.9 Fibrinogen 239.0 Sodium Potassium Chloride Carbon Dioxide Anion Gap BUN Creatinine Creat Clearance w eGFR Random Glucose Calcium Phosphorus Magnesium Total Bilirubin AST ALT Alkaline Phosphatase Creatine Kinase Troponin I Total Protein Albumin Blood Type Antibody Screen Crossmatch Crossmatch IS Only 09/12/18 09/12/18 09/12/18 05:30 05:30 05:30 WBC RBC Hgb Hct MCV MCH MCHC RDW Plt Count MPV Absolute Neuts (auto) Total Counted Neutrophils % Neutrophils % (Manual) Band Neutrophils % Lymphocytes % Lymphocytes % (Manual) Monocytes % Monocytes % (Manual) Eosinophils % Eosinophils % (Manual) Basophils % Nucleated RBC % Differential Comment Hypochromia Platelet Estimate Platelet Comment Polychromasia Basophilic Stippling Anisocytosis Macrocytosis Target Cells PT with INR 14.90 H INR 1.26 H PTT (Actin FS) 32.2 Fibrinogen Sodium 141 Potassium 5.7 H Chloride 109 H Carbon Dioxide 28 Anion Gap 5 L BUN 25 H Creatinine 0.7 Creat Clearance w eGFR > 60 Random Glucose 108 H Calcium 7.7 L Phosphorus 4.4 Magnesium 2.0 Total Bilirubin 0.8 AST 16 ALT 13 Alkaline Phosphatase 62 Creatine Kinase Troponin I < 0.02 Total Protein 5.7 L Albumin 3.5 Blood Type Antibody Screen Crossmatch Crossmatch IS Only Active Medications Generic Name Dose Route Start Last Admin Trade Name Freq PRN Reason Stop Dose Admin Acetaminophen 650 mg 09/11/18 19:48 Tylenol Suppository - NM Q6H PRN FEVER Dexamethasone Sodium Phosphate 10 mg 09/11/18 22:00 09/12/18 03:22 Decadron Injection - IVPUSH 10 mg Q8H-IV ABBY Administration Hydromorphone HCl 1 mg 09/11/18 19:48 Dilaudid Vial - IVPB Q6H PRN PAIN LEVEL 6-10 Fentanyl 500 mcg/ Dextrose 100 mls @ 5 mls/hr 09/11/18 19:15 09/11/18 21:43 IVPB 50 mcg/hr TITR ABBY 10 mls/hr Titration Protocol 25 MCG/HR Nicardipine HCl 25 mg/ 250 mls @ 25 mls/hr 09/11/18 19:48 09/11/18 20:15 Dextrose IVPB Not Given TITR ABBY Protocol 2.5 MG/HR Propofol 1,000,000 mcg in 100 mls @ 1.837 mls/hr 09/11/18 19:48 09/11/18 20: 14 Diprivan - IVPUSH 50 mcg/kg/min TITR ABBY 18.371 mls/hr Administration Protocol 5 MCG/KG/MIN Sodium Chloride 1,000 mls @ 75 mls/hr 09/11/18 19:48 09/11/18 20:14 Normal Saline - IV 75 mls/hr ASDIR ABBY Administration Metoprolol Tartrate 5 mg 09/12/18 09:00 Lopressor Injection - IVPUSH Q6H-IV ABBY Mupirocin 1 applic 09/11/18 22:00 09/11/18 21:53 Bactroban Ointment (For Decolonization) - NS 09/16/18 21:59 1 applic BID ABBY Administration Pantoprazole Sodium 40 mg 09/12/18 10:00 Protonix Iv IVPUSH DAILY ABBY CBC, BMP 09/12/18 05:30 09/12/18 05:30 ASSESSMENT/PLAN: 73yo M with myeloproliferative disorder, hypertension, Afib, COPD status post left carotid endarterectomy on 09/11/18. Course complicated by expanding neck hematoma as described above. Left the unit to be taken to the OR. #S/p Carotic gang rider aretectomy lefti side POD #2 -Hematoma drained 40 CC over night -Pain control: Dilauded 1 mg q4hr PRN, Tylenol 650 NM Q 6hr -surgery following -head of bed elevated 30-45 degree -aspiration precautions -Dexamethasone 10 mg IVPb q8h #NEURO Propofol drip , fentanyl while intubated #CV - hypertension, PAFib -BP on low side , hold BP meds for now HEME Myeloproliferative disorder -dependent on transfusions, last transfused 09/07/18 -Heme/onc following -Normal transfusion threshold - S/P Total of 6 Plt mono donors , 2 PRBC, 1 DDAVP GI Nausea -Zofran dose increased PULM RUL Atelectasis History of COPD -Intubated -assess for cuff leak when ready for extubation -possible extubation tomorrow -ABG stable - mucus blug resolved FEN no standing fluids Follow electrolytes, replete as needed NPO PPX VTE: SCD's GI: Protonix #Disposition: Continue to monitor in the ICU #Full Code Follow CBC at 4 pm Visit type - Emergency Visit Emergency Visit: Yes ED Registration Date: 09/10/18 Care time: The patient presented to the Emergency Department on the above date and was hospitalized for further evaluation of their emergent condition. - New Patient This patient is new to me today: No - Critical Care Critical Care patient: Yes Total Critical Care Time (in minutes): 45 Critical Care Statement: The care of this patient involved high complexity decision making to prevent further life threatening deterioration of the patient 's condition and/or to evaluate & treat vital organ system(s) failure or risk of failure.
--- NOTE | 2018-09-12 08:18 | PN ---
Progress Note (short form) - Note Progress Note: POD#2/#1(hemtom,ma evaculation) Vital Signs Period Temp Pulse Resp BP Sys/Paredes Pulse Ox Last 24 Hr 97.1 F-99.9 F 73-92 14-20 104-166/51-85 10-100 MODESTA-40 ml, dark blood GEN: Intubated and sedated NECK: Soft, dressing c/d/i(changed overnight by nursing staff) CBC, BMP 09/12/18 05:30 09/12/18 05:30 A/P; 73 yo male s/p Left CEA with post of bleeding and evacuation of neck hematoma Plan to keep intubated today/airway with swelling yesterday. IV decadron every 8 hours Sedation as needed while on the vent Repeat H&H after PRBC finished this am Continue MODESTA
[2018-09-12] MEDS ORDERED: METOPROLOL TARTRATE 5 MG/5 ML VIAL IVPUSH SCH (09:00)
[2018-09-12] MEDS: MUPIROCIN 2% TOPICAL OINTMENT FOR DECOLONIZATION NS SCH ×2 (09:31→22:03)
[2018-09-12] MEDS: PANTOPRAZOLE SODIUM 40 MG VIAL IVPUSH SCH (09:31)
[2018-09-12] MEDS: SODIUM CHLORIDE 1,000 ML IV SCH ×2 (10:30→21:54)
[2018-09-12 10:44] LABS: HEMATOCRIT 25.7 % (35.4-49); HEMOGLOBIN 8.5 GM/dL (11.7-16.9); MCH 29.1 pg (25.7-33.7); MEAN CELL VOLUME 88.1 fl (80-96); MEAN PLT VOLUME 10.7 fl (7.5-11.1); PLATELET COUNT 624 K/MM3 (134-434); RBC 2.92 M/mm3 (4.00-5.60); RDW 17.9 % (11.9-15.9)
[2018-09-12] MEDS: METOPROLOL TARTRATE 5 MG/5 ML VIAL IVPUSH SCH ×3 (11:00→22:01)
[2018-09-12 11:35] LABS: PLATELET ESTIMATE INCREASED
--- NOTE | 2018-09-12 11:37 | EKG ---
Test Reason : Blood Pressure : / mmHG Vent. Rate : 080 BPM Atrial Rate : 080 BPM P-R Int : 202 ms QRS Dur : 074 ms QT Int : 390 ms P-R-T Axes : 067 029 039 degrees QTc Int : 449 ms NORMAL SINUS RHYTHM SEPTAL INFARCT (CITED ON OR BEFORE 23-APR-2018) ABNORMAL ECG WHEN COMPARED WITH ECG OF 23-APR-2018 08:23, NO SIGNIFICANT CHANGE WAS FOUND Confirmed by IGOR WALLACE, AMENA ([id number]) on 09/12/2018 11:36:47 AM Referred By: Hernan Holloway Confirmed By:AMENA COSTA MD
--- NOTE | 2018-09-12 11:38 | EKG ---
Test Reason : Blood Pressure : / mmHG Vent. Rate : 073 BPM Atrial Rate : 073 BPM P-R Int : 178 ms QRS Dur : 074 ms QT Int : 392 ms P-R-T Axes : 052 011 032 degrees QTc Int : 431 ms POOR DATA QUALITY, INTERPRETATION MAY BE ADVERSELY AFFECTED NORMAL SINUS RHYTHM SEPTAL INFARCT (CITED ON OR BEFORE 23-APR-2018) ABNORMAL ECG WHEN COMPARED WITH ECG OF 11-SEP-2018 22:06, NO SIGNIFICANT CHANGE WAS FOUND Confirmed by IGOR WALLACE, AMENA ([id number]) on 09/12/2018 11:38:01 AM Referred By: Hernan Holloway Confirmed By:AMENA COSTA MD
[2018-09-12] MEDS: PROPOFOL 1,000,000 MCG/100 ML VIAL IVPUSH SCH ×2 (12:42→21:55)
--- NOTE | 2018-09-12 12:46 | PN ---
Teaching Attending Note Name of Resident: Manny Rosas ATTENDING PHYSICIAN STATEMENT I saw and evaluated the patient. I reviewed the resident's note and discussed the case with the resident. I agree with the resident's findings and plan as documented. SUBJECTIVE: Pt seen and examined in the ICU. Remains intubated, sedated. Transfused 2 units PRBC, 6 units platelets. Drain now serosanguinous. OBJECTIVE: Vital Signs Period Temp Pulse Resp BP Sys/Paredes Pulse Ox Last 24 Hr 98.1 F-99.9 F 73-92 14-20 104-145/51-75 10-100 Intake & Output 09/09/18 09/10/18 09/11/18 09/12/18 23:59 23:59 23:59 23:59 Intake Total 950 3891 1568 Output Total 400 805 740 Balance 550 3086 828 Weight 63.106 kg Gen: intubated, sedated Heart: RRR Lung: decreased breath sounds at the bases Abd: soft, nontender Ext: no edema Drain serosanguinous CBC, BMP 09/12/18 10:00 09/12/18 05:30 Active Medications Acetaminophen (Tylenol Suppository -) 650 mg FL Q6H PRN PRN Reason: FEVER Dexamethasone Sodium Phosphate (Decadron Injection -) 10 mg IVPUSH Q8H-IV ABBY Last Admin: 09/12/18 09:31 Dose: 10 mg Hydromorphone HCl (Dilaudid Vial -) 1 mg IVPB Q6H PRN PRN Reason: PAIN LEVEL 6-10 Fentanyl 500 mcg/ Dextrose 100 mls @ 5 mls/hr IVPB TITR ABBY; Protocol Last Titration: 09/11/18 21:43 Dose: 50 mcg/hr, 10 mls/hr Nicardipine HCl 25 mg/ (Dextrose) 250 mls @ 25 mls/hr IVPB TITR ABBY; Protocol Last Admin: 09/11/18 20:15 Dose: Not Given Propofol (Diprivan -) 1,000,000 mcg in 100 mls @ 1.837 mls/hr IVPUSH TITR ABBY; Protocol Last Admin: 09/11/18 20:14 Dose: 50 mcg/kg/min, 18.371 mls/hr Sodium Chloride (Normal Saline -) 1,000 mls @ 75 mls/hr IV ASDIR ABBY Last Admin: 09/11/18 20:14 Dose: 75 mls/hr Metoprolol Tartrate (Lopressor Injection -) 5 mg IVPUSH Q6H-IV [facility] Mupirocin (Bactroban Ointment (For Decolonization) -) 1 applic NS BID [facility] Stop: 09/16/18 21:59 Last Admin: 09/12/18 09:31 Dose: 1 applic Pantoprazole Sodium (Protonix Iv) 40 mg IVPUSH DAILY [facility] Last Admin: 09/12/18 09:31 Dose: 40 mg ASSESSMENT AND PLAN: Left Carotid Stenosis s/p L CEA Post op Hematoma/Bleeding Acute Respiratory Failure Atrial Fibrillation Myeloproliferative Disorder HTN COPD - monitor H/H - transfuse PRBC as needed - BP control - pain control - rate control - holding anticoagulation - hold sedation in AM if no further bleeding to assess mental status - spontaneous breathing trials as tolerated when mental status improved - will need to assess for cuff leak when ready for extubation - DVT prophylaxis - continue ICU monitoring critical care time spent in reviewing chart, evaluating patient and formulating plan 35 min
--- NOTE | 2018-09-12 13:30 | PN ---
Progress Note (short form) - Note Progress Note: POD 1 s/p control of post-CEA bleed. Pt remains intiubated/sedated, VSS in ICU. No apparent anesthetic issues/complications
--- NOTE | 2018-09-12 16:54 | PN ---
Progress Note (short form) - Note Progress Note: 73 yr old man AA gentleman with a hx of HTN, MPD, hx of paroxysmal Afib, hemachromatosis, left ventricular diastolic dysfunction, recurring anemia, thrombocytopenia and critical carotid artery stenosis, underwent left carotid end artectomy. Patient after a bout of coughing developed hematoma over the left neck and patient was intubated as a precautionary measure for airway protection. had ongoing bleedind and went back to the OR and hemostasis was achieved. Patient remains intubated, still on Propofol and deeply sedated. hemodynamically stable. Active Medications Acetaminophen (Tylenol Suppository -) 650 mg [place] Q6H PRN PRN Reason: FEVER Dexamethasone Sodium Phosphate (Decadron Injection -) 10 mg IVPUSH Q8H-IV [facility] Last Admin: 09/12/18 09:31 Dose: 10 mg Hydromorphone HCl (Dilaudid Vial -) 1 mg IVPB Q6H PRN PRN Reason: PAIN LEVEL 6-10 Fentanyl 500 mcg/ Dextrose 100 mls @ 5 mls/hr IVPB TITR [facility]; Protocol Last Admin: 09/12/18 14:36 Dose: 100 mcg/hr, 20 mls/hr Nicardipine HCl 25 mg/ (Dextrose) 250 mls @ 25 mls/hr IVPB TITR [facility]; Protocol Last Admin: 09/11/18 20:15 Dose: Not Given Propofol (Diprivan -) 1,000,000 mcg in 100 mls @ 1.837 mls/hr IVPUSH TITR [facility]; Protocol Last Titration: 09/12/18 14:37 Dose: 35 mcg/kg/min, 12.859 mls/hr Sodium Chloride (Normal Saline -) 1,000 mls @ 75 mls/hr IV ASDIR [facility] Last Admin: 09/12/18 10:30 Dose: 75 mls/hr Metoprolol Tartrate (Lopressor Injection -) 5 mg IVPUSH Q6H-IV [facility] Last Admin: 09/12/18 16:00 Dose: Not Given Mupirocin (Bactroban Ointment (For Decolonization) -) 1 applic NS BID [facility] Stop: 09/16/18 21:59 Last Admin: 09/12/18 09:31 Dose: 1 applic Pantoprazole Sodium (Protonix Iv) 40 mg IVPUSH DAILY [facility] Last Admin: 09/12/18 09:31 Dose: 40 mg Last Vital Signs Temp Pulse Resp BP Pulse Ox 99.2 F 88 14 110/50 L 100 09/12/18 14:00 09/12/18 16:00 09/12/18 15:19 09/12/18 16:00 09/12/18 09:00 O: Neck: No JVD, HRJ -ve. decrese in left swelling, minimal drainage tube with minimal drainage Heart: PMI in 5th intercostal space, no heaves or thrills, S1, S2 are normal. Grade I/ ejection systolic murmur in 2nd right intercostal space no diastolic murmur or gallops heard. Lungs: clear on auscultation b/l. Abdomen: soft, nontender, no hepatomegaly or palpable masses. 2+ splenomegaly Ext: no calf tenderness or dependent edema, pulses are normal CBC, BMP 09/12/18 10:00 09/12/18 05:30 Troponin, BNP 09/11/18 09/12/18 22:20 05:30 Troponin I < 0.02 < 0.02 Impression: 1. Hypertension, Hypertensive cardiovascular disease, currently normotensive 2. Post-operative bleeding from surgical site. 3. Status post left carotid end artectomy 4. Post operative bleeding and hematoma. 5. Myeloproliferative disorder. 6. History of moderate tricuspid regurgitation. Recommendation: 1. Hold Metropolol unless patient is hypertensive. 2. F/u CBC and BMP.
[2018-09-13] MEDS ORDERED: fentaNYL CITRATE 250 MCG/5 ML VIAL ONE ×2 (01:10→08:17)
[2018-09-13] MEDS: DEXAMETHASONE SOD PHOSPHATE 10 MG/1 ML VIAL IVPUSH SCH ×3 (01:39→18:23)
[2018-09-13] MEDS: METOPROLOL TARTRATE 5 MG/5 ML VIAL IVPUSH SCH ×4 (03:00→21:06)
[2018-09-13 06:26] LABS: BASO % 0.6 % (0-2.0); HEMOGLOBIN 9.1 GM/dL (11.7-16.9); LYMPH % 4.9 % (8-40); MCHC 32.5 g/dl (32.0-35.9); MEAN CELL VOLUME 89.2 fl (80-96); MEAN PLT VOLUME 9.9 fl (7.5-11.1); MONO % 1.8 % (3.8-10.2); NEUT % 92.7 % (42.8-82.8); PLATELET COUNT 1019 K/MM3 (134-434); RBC 3.13 M/mm3 (4.00-5.60); RDW 19.5 % (11.9-15.9)
[2018-09-13 06:44] LABS: INR 1.13 (0.83-1.09); PROTHROMBIN TIME (PATIENT) 13.3 SEC (9.7-13.0)
[2018-09-13 06:46] LABS: ACTIVATED PTT 31.7 SECONDS (25.2-36.5)
[2018-09-13] MEDS ORDERED: PT OWN MED DRAWER 7, Y5N ONE ×3 (08:18→20:40)
[2018-09-13 08:33] LABS: ALBUMIN 3.6 g/dl (3.4-5.0); ALK PHOS 59 U/L (45-117); ANION GAP 7 MMOL/L (8-16); BILIRUBIN,TOTAL 0.7 mg/dL (0.2-1); BLOOD UREA NITROGEN 47 mg/dL (7-18); CALCIUM 8.6 mg/dL (8.5-10.1); CHLORIDE 113 mmol/L (98-107); CO2 25 mmol/L (21-32); CREATININE 0.9 mg/dL (0.55-1.3); GLUCOSE,RANDOM 118 mg/dL (74-106); MAGNESIUM 2.3 mg/dL (1.8-2.4); PHOSPHOROUS 5.5 mg/dL (2.5-4.9); SGOT/AST 12 U/L (15-37); SGPT/ALT 13 U/L (13-61); SODIUM 145 mmol/L (136-145); TOT PROT 5.8 g/dl (6.4-8.2)
--- NOTE | 2018-09-13 08:39 | PN ---
Progress Note (short form) - Note Progress Note: Intubated and sedated VSS Neck swelling unchanged Drain with minimal drainage Hgb stable For extubation today D/C drain Problem List - Problems (1) Carotid stenosis, left Code(s): I65.22 - OCCLUSION AND STENOSIS OF LEFT CAROTID ARTERY
[2018-09-13] MEDS ORDERED: CALCIUM GLUCONATE 10% - 1,000 MG/10 ML VIAL IVPB ONE (09:00)
[2018-09-13] MEDS: MUPIROCIN 2% TOPICAL OINTMENT FOR DECOLONIZATION NS SCH ×2 (09:08→21:34)
[2018-09-13] MEDS: PANTOPRAZOLE SODIUM 40 MG VIAL IVPUSH SCH (09:09)
[2018-09-13] MEDS: HYDROXYUREA 500 MG CAPSULE PO SCH ×2 (10:05→21:33)
[2018-09-13] MEDS: amLODIPine BESYLATE 2.5 MG TABLET (FP) PO ONE ×2 (10:19→10:47)
[2018-09-13] MEDS ORDERED: ALBUTEROL SO4 0.083% IH SOL 2.5 MG/3 ML VIAL.NEB. NEB ONE (10:24)
[2018-09-13] MEDS ORDERED: INSULIN REGULAR HUMAN 100 UNITS/ML *VIAL IVPUSH ONE (10:26)
[2018-09-13] MEDS ORDERED: DEXTROSE 50%-WATER - 25 GM/50 ML VIAL IVPUSH ONE (10:28)
[2018-09-13] MEDS ORDERED: DEXTROSE 50%-WATER 25 GM/50 ML DISP.SYRIN ONE (10:35)
--- NOTE | 2018-09-13 10:59 | PN ---
Teaching Attending Note Name of Resident: Reba Cotton ATTENDING PHYSICIAN STATEMENT I saw and evaluated the patient. I reviewed the resident's note and discussed the case with the resident. I agree with the resident's findings and plan as documented. SUBJECTIVE: Pt seen and examined in the ICU. Intubated, arousable off sedation. Tolerated CPAP/PS trials with good cuff leak and subsequently extubated. OBJECTIVE: Vital Signs Period Temp Pulse Resp BP Sys/Paredes Pulse Ox Last 24 Hr 98.5 F-99.3 F 74-94 14-19 100-144/47-99 100-100 Intake & Output 09/10/18 09/11/18 09/12/18 09/13/18 23:59 23:59 23:59 23:59 Intake Total 950 3891 2921 1212 Output Total 380 575 3531 500 Balance 550 3086 1873 712 Weight 63.049 kg 64.7 kg Gen: extubated Heart: RRR Lung: decreased breath sounds at the bases Abd: soft, nontender Ext: no edema CBC, BMP 09/13/18 05:30 09/13/18 05:30 Active Medications Acetaminophen (Tylenol Suppository -) 650 mg [place] Q6H PRN PRN Reason: FEVER Anagrelide HCl (Agrylin) 1 mg PO ONCE ONE Stop: 09/13/18 11:01 Anagrelide HCl (Agrylin) 1 mg PO TID [facility] Dexamethasone Sodium Phosphate (Decadron Injection -) 10 mg IVPUSH Q8H-IV [facility] Last Admin: 09/13/18 09:08 Dose: 10 mg Hydromorphone HCl (Dilaudid Vial -) 1 mg IVPB Q6H PRN PRN Reason: PAIN LEVEL 6-10 Hydroxyurea (Hydrea -) 1,000 mg PO BID [facility] Last Admin: 09/13/18 10:05 Dose: 1,000 mg Fentanyl 500 mcg/ Dextrose 100 mls @ 5 mls/hr IVPB TITR [facility]; Protocol Last Admin: 09/12/18 21:55 Dose: 100 mcg/hr, 20 mls/hr Propofol (Diprivan -) 1,000,000 mcg in 100 mls @ 1.837 mls/hr IVPUSH TITR [facility]; Protocol Last Titration: 09/13/18 07:06 Dose: 50 mcg/kg/min, 18.371 mls/hr Sodium Chloride (Normal Saline -) 1,000 mls @ 75 mls/hr IV ASDIR [facility] Last Admin: 09/12/18 21:54 Dose: 75 mls/hr Metoprolol Tartrate (Lopressor Injection -) 5 mg IVPUSH Q6H-IV [facility] Last Admin: 09/13/18 09:07 Dose: 5 mg Mupirocin (Bactroban Ointment (For Decolonization) -) 1 applic NS BID [facility] Stop: 09/16/18 21:59 Last Admin: 09/13/18 09:08 Dose: 1 applic Pantoprazole Sodium (Protonix Iv) 40 mg IVPUSH DAILY [facility] Last Admin: 09/13/18 09:09 Dose: 40 mg ASSESSMENT AND PLAN: Left Carotid Stenosis s/p L CEA Post op Hematoma/Bleeding Acute Respiratory Failure Atrial Fibrillation Myeloproliferative Disorder HTN COPD - pt extubated - can decrease decadron to 6mg q8h - monitor H/H - transfuse PRBC as needed - monitor drain output - BP control - pain control - rate control - holding anticoagulation - hyperkalemia treatment - started on hydrea per onc - DVT prophylaxis - continue ICU monitoring critical care time spent in reviewing chart, evaluating patient and formulating plan 35 min
[2018-09-13] MEDS ORDERED: ANAGRELIDE HCL 1 MG PO ONE (11:00)
[2018-09-13 11:48] LABS: ANISOCYTOSIS 1+; MACROCYTOSIS 0; PLATELET ESTIMATE INCREASED; TARGET CELLS 1+
--- NOTE | 2018-09-13 11:52 | PN ---
Progress Note (short form) - Note Progress Note: SUBJECTIVE Patient seen and examined at the bedside. Passed spontaneous breathing trial and extubated this AM. OBJECTIVE Vital Signs Temperature 98.5 F 09/13/18 05:00 Pulse Rate 94 H 09/13/18 09:11 Respiratory Rate 17 09/13/18 09:09 Blood Pressure 140/65 09/13/18 09:07 O2 Sat by Pulse Oximetry (%) 100 09/13/18 09:11 General: Awake, alert Head: No signs of trauma Eyes: EOMI, sclera anicteric ENT: Dry mucus membranes Neck: Surgical site is clean, dry, and intact; drain present with scant contents Lungs: Diminished breath sounds at bilateral bases Cardio: Regular rhythm, S1 and S2 present Abdomen: Soft, nontender Extremities: Normal range of motion, Distal pulses present SKIN: Warm, Dry, normal turgor Neurologic: Following commands ASSESSMENT 73yo M with myeloproliferative disorder, hypertension, Afib, COPD status post left carotid endarterectomy on 09/10/18. Course complicated by expanding neck hematoma which was evacuated on 09/11/18. POD #2/#3. PLAN POD #2/#3 -Hematoma -Pain control: Dilauded 1 mg q6hr PRN -head of bed elevated 30-45 degree -aspiration precautions -Dexamethasone q8h, lowered dose to 6mg from 10mg -vascular surgery following NEURO No longer sedated CV History of hypertension, AFib -Cardene ggt for BP control -Goal Systolic: 130s-140s -Cardiology following HEME Myeloproliferative disorder -dependent on transfusions, last transfused 09/07/18 -Normal transfusion threshold -Hydroxyurea started for thrombocythemia -Heme/onc following PULM RUL Atelectasis History of COPD -Extubated 09/13/18 -on Venti Mask 40 FEN NS @75cc/hr Follow electrolytes, replete as needed -Hyperkalemia may be due to thrombolysis, however since plasma K is pending (it is a send-out test), will treat with albuterol, insulin, and Ca gluconate NPO with pending speech/swallow eval PPX VTE: SCD's GI: Protonix #Disposition: Continue to monitor in the ICU #Full Code
[2018-09-13] MEDS ORDERED: METOPROLOL TARTRATE 5 MG/5 ML VIAL IVPUSH ONE (12:04)
--- NOTE | 2018-09-13 13:18 | CONSULT ---
Admitting History and Physical - Primary Care Physician PCP: Hernan Holloway - Admission History of Present Illness: 73 year old man was found to have left carotid bruit during work-up for hernia surgery. Carotid Duplex and MRA confirmed a severe stenosis >90%. Surgery with left CEA 2. Post op hematoma stable this AM but then coughed with expansion of hematoma with new dysphagia and voice changes. Pt electively intubated by anesthesia and brought back to OR for exploration. Passed spontaneous breathing trial and extubated 9 AM today. Tolerated medication this am po, given by nursing. History Source: Patient, Family Member, Medical Record Limitations to Obtaining History: Clinical Condition (flat affect, o x 3, limited eye contact unless directed, tearful.) - Past Medical History Cardiovascular: Yes: AFIB, HTN Pulmonary: Yes: COPD Heme/Onc: Yes: Myeloproliferative Synd, Other (Thrombocytosis) - Past Surgical History Past Surgical History: Yes: Hernia Repair - Smoking History Smoking history: Never smoked Have you smoked in the past 12 months: No Aproximately how many cigarettes per day: 0 If you are a former smoker, when did you quit?: 1 YR - Alcohol/Substance Use Hx Alcohol Use: No History - Admission Reason For Visit: CAROTID STENOSIS - Diagnostics X-ray: Report Reviewed - General Mental Status: Alert and Oriented, Able to Follow Commands, Vague (reduced speech initially, rate of response, simple but accurate responses.), Flat Affect Attention: Mild Impairment, Moderate Impairment Ability to Follow Directions: Good - Hearing Hearing: Impaired Speech Evaluation - Communication Primary Language: GEORGIAN Communication: Yes: Simple Responses (able to name, repeat, respond to simple questions.) - Speech Production Intelligibility: Yes: Mildly Impaired - Speech Characteristics Voice Loudness: Mildly Soft/Quiet Voice Pitch: Yes: Normal Voice Phonatory-based Quality: Yes: Dysphonia (mild. not yet at baseline. Extubated today.) Nasal Resonance: Normal Articulation: Yes: Precise - Language/Auditory Comprehension Follows: Yes: 1 Stage Simple Commands Observation: Able to respond to yes/no queries: Yes, Yes/No Confusion: No, Comprehends Conversational Speech: Yes - Swallow Evaluation/Bedside Assessment Current Nutritional Intake: NPO Oral Secretions: Yes: WFL (small amount ofblood in back of right side of mouth, to be suctiioned by nsg) Dentition: Yes: Adequate Facial Symmetry at Rest: Symmetrical Facial Symmetry on Retraction: Symmetrical Facial Movement: Controlled Against Resistance Opening: Normal Against Resistance Closing: Normal Pucker Lips: Normal Smile: Normal Lingual Movement: Normal, Symmetric Lingual Speed of Movement: Normal Lingual Movement Strgth Against Opposition: Normal Lingual Movement Characteristics: Normal Velopharyngeal Movement: Normal Laryngeal Movement: Able to Palpate Rate of Intake: WFL Bolus Size: Small Chewing: WFL (not assessed per family's qwishes but suspected to be wnl.) Oral Prep Time: WFL A-P Transit: WFL Timing of Swallow: Delayed Coughing/Throat Clear: No Change in Voice: No Recommendations - Speech Evaluation, Impression/Plan Impression: Mild dysphonia, extubated this am. Swallow delayed but fairly brisk.Tolerated small careful sips of thin water and puree. 3 oz water deferred , to avoid possibly cough respond. Solids not attempted per family request. Voice/swallow will likely improve significantly by tmw. - Dysphagia Impressions/Plan Dysphagia Impressions: Minimal Impairment, Risk of Aspiration, Ongoing Evaluation *Silent aspiration: cannot be R/O at bedside Dysphagia Treatment Plan: Small Bites, Chin Tuck/Down, Clear Pocket Food, Trial Feedings, 1/2 tsp. at a time, Elevate HOB during feed - Recommendations Diet Consistency: Other (pureed type foods that pt desires. eg ice cream, pudding, soup,mahed potatoes) Liquids: Thin Liquids (single sips. monitor tolerance)
[2018-09-13] MEDS ORDERED: niCARdipine HCL 25 MG/10 ML AMPUL IVPB ONE (13:55)
[2018-09-13] MEDS ORDERED: ANAGRELIDE HCL 1 MG PO SCH (14:00)
[2018-09-13] MEDS: NICARDIPINE 25 MG in DEXTROSE 5%-WATER - 240 ML IVPB SCH (14:06)
--- NOTE | 2018-09-13 14:20 | PN ---
Progress Note (short form) - Note Progress Note: ID CONSULT DICTATED LOW GRADE TEMP S/P L CEA/ EVACUATION OF HEMATOMA MARKED LEUKOCYTOSIS IN SETTING OF MPS/ STEROIDS WOUND NOT CLINICALLY INFECTED CULTURES OBTAINED WILL OBSERVE OFF ANTIBIOTICS
--- NOTE | 2018-09-13 15:31 | CONS ---
DATE OF CONSULTATION: DATE OF DICTATION: 09/13/2018 HISTORY OF PRESENT ILLNESS: The patient is a 73-year-old male with a history of myeloproliferative syndrome who was evaluated for low-grade fever. The patient was found to have a left carotid bruit on preoperative examination for inguinal hernia repair. Imaging revealed greater than 90% stenosis of the carotid artery. The patient underwent a left carotid endarterectomy on September 10, 2018 with placement of a Dacron patch. Postoperatively, he developed bleeding and a hematoma. He required a return to the operating room on two separate occasions for evacuation of hematoma. He required transfusion of six units of platelets. Postoperatively, he remained intubated. There was some weaning difficulty. He was ultimately extubated. He was placed on steroids. His course was further complicated by marked leukocytosis and thrombocytosis, now with low-grade fever of 99.9. He is awake and alert. He has no focal complaint. He denies any respiratory tract symptoms, no complaints of pain at the site. There have been no reports of erythema or purulent drainage from the left neck surgical wound. Blood cultures have been obtained. He received cefazolin perioperatively. PAST MEDICAL HISTORY: Positive for myeloproliferative disorder, atrial fibrillation, COPD. ALLERGIES: No known drug allergies. MEDICATIONS: Decadron, Hydrea, Lopressor. SOCIAL HISTORY: He is a nonsmoker, nondrinker. He lives in the community. REVIEW OF SYSTEMS: Neurologic: No loss of consciousness, seizure activity or focal weakness. Cardiac: Negative for chest pain or palpitations. Respiratory: As per HPI. Gastrointestinal: Negative for vomiting or diarrhea. Genitourinary: Negative for urinary tract infection. LABORATORY DATA: White count 29.0, 95% neutrophils, 2 bands, 5 lymphocytes. Hematocrit 28.0, platelet count 1 million. Blood culture is preliminarily negative. A chest x-ray shows no infiltrate. There was atelectasis of the right upper lobe on previous x-ray. PHYSICAL EXAMINATION: General: The patient is awake and alert. He has been extubated. He is in no acute respiratory distress on nasal cannula. Vital Signs: Temperature 98.1, pulse 105 and regular, blood pressure 173/80, respiratory rate 20 per minute. HEENT: Sclerae anicteric. Neck: The left neck surgical wound has she in place. No erythema or purulent drainage. Heart: Heart sounds S1, S2. Lungs: Grossly clear. There is a port present, right chest. No erythema or tenderness. Abdomen: Soft. No tenderness elicited. No masses, rebound or rigidity. Extremities: Negative for edema, negative Emiliano sign. IMPRESSION: 1. Low-grade fever, status post left carotid endarterectomy and evacuation of hematoma. 2. Marked leukocytosis in the setting of myeloproliferative syndrome and steroids. PLAN: The wound does not appear to be clinically infected. Cultures have been obtained. We will observe him off antibiotic therapy. Should he develop higher-grade fever or localizing signs and symptoms of infection, we will start him on empiric antibiotic therapy. For now, we will observe him off and continue to monitor. MORIAH ALEGRIA M.D. [id number]
[2018-09-13 15:36] LABS: POTASSIUM 6.2 mmol/L (3.5-5.1)
[2018-09-13] MEDS ORDERED: FUROSEMIDE 40 MG/4 ML INJECTABLE VIAL ONE (16:12)
[2018-09-13] MEDS ORDERED: FUROSEMIDE 100 MG/10 ML INJECTABLE VIAL IVPB ONE (16:19)
--- NOTE | 2018-09-13 16:43 | EKG ---
Test Reason : Blood Pressure : / mmHG Vent. Rate : 095 BPM Atrial Rate : 095 BPM P-R Int : 184 ms QRS Dur : 082 ms QT Int : 334 ms P-R-T Axes : 072 031 068 degrees QTc Int : 419 ms NORMAL SINUS RHYTHM NORMAL ECG WHEN COMPARED WITH ECG OF 12-SEP-2018 05:25, NONSPECIFIC T WAVE ABNORMALITY NO LONGER EVIDENT IN ANTERIOR LEADS Confirmed by YESENIA WALLACE, LUCERO ([id number]) on 09/13/2018 4:43:02 PM Referred By: Hernan Holloway Confirmed By:LUCERO PATTERSON MD
[2018-09-13] MEDS ORDERED: DEXAMETHASONE SOD PHOSPHATE 10 MG/1 ML VIAL IVPB ONE (17:20)
--- NOTE | 2018-09-13 17:31 | PN ---
Progress Note, Physician Chief Complaint: pt is complaining of some difficulty in breathing can not distinguish if it is in his throat vs palate No stridor was noted but pt feeling chocking in his neck spoken with the surgeon Dr Grullon no surgical intervention is needed on his behalf spoken with Dr Guallpa and ailyn recommend decadran , bronchodilators , and Epinephrine citacain spray was ordered to help with pain in the palate ulcer HR in 150 and another dose of lopressor was given to him, DC fluids 20 lasix IV titrate nicardipin to keep BP 130-140 systolic pt develop Afib @ 160 I start him on Cardizim drip maintain BP > 120/80 EKG was done with Afib with RVR and faxed to Dr Ybarra if no improvement another cardizim bolus might needed. Neck CTA to R/O Air way compromise as soon as HR is stable Spoken with anesthesia to evaluate the air way - Current Medication List Current Medications: Active Medications Acetaminophen (Tylenol Suppository -) 650 mg [place] Q6H PRN PRN Reason: FEVER Albuterol/Ipratropium (Duoneb -) 1 amp NEB RQID [facility] Anagrelide HCl (Agrylin) 1 mg PO TID [facility] Benzocaine/Butamben/Tetracaine HCl (Cetacaine [place] -) 1 spray TP DAILY [facility] Dexamethasone Sodium Phosphate (Decadron Injection -) 6 mg IVPUSH Q8H-IV [facility] Dexamethasone Sodium Phosphate (Decadron Injection -) 20 mg IVPB ONCE ONE Stop: 09/13/18 17:21 Hydromorphone HCl (Dilaudid Vial -) 1 mg IVPB Q6H PRN PRN Reason: PAIN LEVEL 6-10 Hydroxyurea (Hydrea -) 1,000 mg PO BID [facility] Last Admin: 09/13/18 10:05 Dose: 1,000 mg Nicardipine HCl 25 mg/ (Dextrose) 250 mls @ 25 mls/hr IVPB TITR [facility]; Protocol Last Titration: 09/13/18 15:33 Dose: 5 mg/hr, 50 mls/hr Metoprolol Tartrate (Lopressor Injection -) 5 mg IVPUSH Q6H-IV [facility] Last Admin: 09/13/18 16:29 Dose: Not Given Mupirocin (Bactroban Ointment (For Decolonization) -) 1 applic NS BID [facility] Stop: 09/16/18 21:59 Last Admin: 09/13/18 09:08 Dose: 1 applic Pantoprazole Sodium (Protonix Iv) 40 mg IVPUSH DAILY [facility] Last Admin: 09/13/18 09:09 Dose: 40 mg - Objective Vital Signs: Vital Signs Temperature 99.1 F 09/13/18 14:00 Pulse Rate 113 H 09/13/18 16:29 Respiratory Rate 13 09/13/18 15:00 Blood Pressure 152/59 L 09/13/18 16:29 O2 Sat by Pulse Oximetry (%) 100 09/13/18 09:11 Labs: CBC, BMP 09/13/18 05:30 INR, PTT INR 1.13 (0.83-1.09) H 09/13/18 05:30 Fibrinogen 259.0 mg/dL (238-498) D 09/13/18 05:45
[2018-09-13 17:38] LABS: ANION GAP 4 MMOL/L (8-16); BLOOD UREA NITROGEN 38 mg/dL (7-18); CALCIUM 9.5 mg/dL (8.5-10.1); CHLORIDE 114 mmol/L (98-107); CO2 28 mmol/L (21-32); CREATININE 0.6 mg/dL (0.55-1.3); GLUCOSE,RANDOM 149 mg/dL (74-106); N-TERMINAL BNP 6457.7 pg/ml (5-125); POTASSIUM 4.8 mmol/L (3.5-5.1); SODIUM 145 mmol/L (136-145)
[2018-09-13] MEDS ORDERED: RACEPINEPHRINE IH SOL 2.25% 11.25 MG/0.5 ML VIAL NEB ONE (17:45)
[2018-09-13] MEDS ORDERED: dilTIAZem HCL 25 MG/5 ML - 5 ML VIAL ONE (17:45)
[2018-09-13] MEDS: DILTIAZEM INJECTION 125 MG in SODIUM CHLORIDE 100 ML IVPB SCH (17:50)
[2018-09-13] MEDS: TETRACAINE/BENZOCAINE/BUTAMBEN 20 GM SPR TP SCH (18:22)
[2018-09-13] MEDS ORDERED: FUROSEMIDE 40 MG/4 ML INJECTABLE VIAL IVPUSH ONE (18:32)
--- NOTE | 2018-09-13 18:55 | HOSP ---
Subjective - Review of Symptoms Events since last encounter: Asked by Dr. Rosas to evaluate patient due to new sensation of chocking in his neck. Pt seen and evaluated. He was extubated this am, he was feeling well, until an hour ago, when he started feeling something weird in his throat, like a foreign body in his throat. HE denies wheezing, he denies cough, he has occasional cough. He was on nicardipine gtt for HTN, but then went into A fib with RVR about an hour ago and was started on CArdizem gtt after stopping Nicardipine gtt. On exam: SBP 120-150 . HR 115-140. afebrile. Sat 99 % NC NAD. HEENT: no facial droop, EOMI, MMM. oropharynx with echymosis. eschar on R sided oropharynx. Uvula is not edematous and at mid line. NO stridor . L sided neck with longitudinal wound with she, slight edema noted ( same compared to Am per RN) Lungs: CTAB . No wheezes and no crackles A/P : 73 y/o gentleman with h/o COPD, HTN, A fib, blood disorder, and high grade carotid stenosis for which he had CEA on 09/10 . this was complicated with bleeding , now status post L neck exploration and suturing of L carotid artery. He was intubated then extubated this am. Now with foreign body sensation in his neck and throat. 1- DDX includes airway edema after extubation VS soft tissue hematoma . no stridor and no resp compromise. SAt 99% on NC. Give decadron obtain CT of neck after controlling HR Monitor respiration closely , in case rapid deterioration happen. low threshold for re-intubation if in distress or desaturating 2 - A fib with RVR : wonder if this is responsible for some of the feeling in neck. - was started on cardizem gtt. uptitrate as needed - monitor HR and BP. - No AC at this point with recent bleed - received 20 of IV lasix earlier . D/W family, RN, and Physical Examination Vital Signs: Vital Signs Temperature 99.1 F 09/13/18 14:00 Pulse Rate 170 H 09/13/18 17:50 Respiratory Rate 13 09/13/18 15:00 Blood Pressure 140/65 09/13/18 17:50 O2 Sat by Pulse Oximetry (%) 100 09/13/18 09:11 Labs: CBC, BMP 09/13/18 05:30 09/13/18 16:30 Critical Care Total Critical Care Time (in minutes): 30 Critical Care Statement: The care of this patient involved high complexity decision making to prevent further life threatening deterioration of the patient 's condition and/or to evaluate & treat vital organ system(s) failure or risk of failure.
[2018-09-13] MEDS: ALBUTEROL SO4 2.5/IPRATROPIUM 0.5 INH SOL 3 ML VIAL.NEB. NEB SCH (20:13)
--- NOTE | 2018-09-13 20:24 | PN ---
Progress Note (short form) - Note Progress Note: Patient seen and examined Seen after extubation this morning and later this evening Oriented in place,person, tie doing well Last Vital Signs Temp Pulse Resp BP Pulse Ox 98.2 F 98 H 18 141/64 100 09/14/18 01:00 09/14/18 01:00 09/14/18 01:00 09/14/18 01:00 09/13/18 20:55 Cor: RSR, No murmurs, No gallops Lungs: Clear to P&A Abd: Soft, Normal bowel sounds, No organomegaly Ext:No significant edema Labs/Meds reviewed A/P 73 y/o patient with MPD, afib, underwent left CEA Developed postoperative hematoma/bleeding --s/p reexploration and suturing Now extubated Doing relatively well Resume anagrelide and hydrea for throbocytosis Resue ASA rosita ok with surgical team Pseudohyperkalemia--check K in heparinized tube will follow
[2018-09-13] MEDS ORDERED: SOTALOL HCL 80 MG TABLET (FP) PO ONE (20:40)
[2018-09-13] MEDS: ANAGRELIDE HCL 1 MG PO SCH (21:34)
--- NOTE | 2018-09-13 21:59 | PN ---
Progress Note (short form) - Note Progress Note: CCU care 73 yr old man AA gentleman with a hx of HTN, MPD, hx of paroxysmal Afib, hemachromatosis, left ventricular diastolic dysfunction, recurring anemia, thrombocytopenia and critical carotid artery stenosis, underwent left carotid end artectomy complicated by left neck hematoma , Patient was extubated today and later became hypertensive and developed atrial fibrillation with rapid ventricular response poorly responsive to IV metroprolol and started on IV diltiazem, still having periods of rapid ventricular response. hemodynamically stable, earlier had SOB and IV fluids were stopped and BNP was obtained and 6457 and received IV lasix. no further SOB. had been off Sotalol while intubated. No chest pain or discomfort, no palpitation reported. On IV diltiazem 15mg/hr. Active Medications Acetaminophen (Tylenol Suppository -) 650 mg [place] Q6H PRN PRN Reason: FEVER Albuterol/Ipratropium (Duoneb -) 1 amp NEB RQID [facility] Last Admin: 09/13/18 20:13 Dose: Not Given Anagrelide HCl (Agrylin) 1 mg PO TID [facility] Benzocaine/Butamben/Tetracaine HCl (Cetacaine [place] -) 1 spray TP DAILY [facility] Last Admin: 09/13/18 18:22 Dose: 1 spray Dexamethasone Sodium Phosphate (Decadron Injection -) 6 mg IVPUSH Q8H-IV [facility] Last Admin: 09/13/18 18:23 Dose: Not Given Hydromorphone HCl (Dilaudid Vial -) 1 mg IVPB Q6H PRN PRN Reason: PAIN LEVEL 6-10 Hydroxyurea (Hydrea -) 1,000 mg PO BID [facility] Last Admin: 09/13/18 10:05 Dose: 1,000 mg Nicardipine HCl 25 mg/ (Dextrose) 250 mls @ 25 mls/hr IVPB TITR [facility]; Has been d/C'd. Last Titration: 09/13/18 15:33 Dose: 5 mg/hr, 50 mls/hr Diltiazem HCl 125 mg/ Sodium (Chloride) 125 mls @ 5 mls/hr IVPB TITR [facility]; Protocol Last Titration: 09/13/18 18:10 Dose: 10 mg/hr, 10 mls/hr Metoprolol Tartrate (Lopressor Injection -) 5 mg IVPUSH Q6H-IV [facility] Last Admin: 09/13/18 16:29 Dose: Not Given Mupirocin (Bactroban Ointment (For Decolonization) -) 1 applic NS BID [facility] Stop: 09/16/18 21:59 Last Admin: 09/13/18 09:08 Dose: 1 applic Pantoprazole Sodium (Protonix Iv) 40 mg IVPUSH DAILY [facility] Last Admin: 09/13/18 09:09 Dose: 40 mg Last Vital Signs Temp Pulse Resp BP Pulse Ox 98.6 F 160 H 12 165/75 99 09/13/18 17:00 09/13/18 18:10 09/13/18 18:00 09/13/18 18:10 09/13/18 18:30 O: Neck: No JVD, mildly +ve HJR on the right neck, decrease in left swelling, rt. carotid 2+. Heart: PMI in 5th intercostal space, no heaves or thrills, S1, S2 are normal. Grade I/ ejection systolic murmur in 2nd right intercostal space no diastolic murmur or gallops heard. Lungs: Decreased breath sounds, left base, fine creps at the right base. Abdomen: soft, nontender, no hepatomegaly or palpable masses. 2+ splenomegaly Ext: no calf tenderness or dependent edema, pulses are normal. Troponin, BNP 09/13/18 16:30 B-Natriuretic Peptide 6457.7 H CBC, BMP 09/13/18 05:30 09/13/18 16:30 Impression: 1. Dyspnea related to volume overload. 2. Poorly controlled hypertension partly related Volume overload/Saline. 2. New onset atrial fibrillation with rapid ventricular response. 3. Status post left carotid endartectomy 4. S/P bleeding and hematoma at the surgical site, resolved. 5. Myeloproliferative disorder with thrombocytosis. 6. History of moderate tricuspid regurgitation. Recommendation: 1. Discussed with resident to resume Sotalol 80mg. Q12H. 2. Close f/u of QTc interval and watch for ventriclar arrythmias and AV block. 3. IV diltiazem to be tapered off. 4. Lasix 40mg. in am. 5. BMP, CBC in am. 6. Troponin and CK today and am. 7. Discussion with Drs. Rodriguez and Amie regarding anticoagulation, high risk for bleeding and prefer ASA 81mg tonight. 8. Serial ECGs. Prognosis: Guarded. Time 2hrs 20mins.
[2018-09-14] MEDS ORDERED: ASPIRIN 81 MG CHEWABLE TABLETS PO SCH ×2 (00:30→10:00)
[2018-09-14] MEDS ORDERED: ASPIRIN 81 MG CHEWABLE TABLETS PO ONE (00:31)
[2018-09-14] MEDS: DEXAMETHASONE SOD PHOSPHATE 10 MG/1 ML VIAL IVPUSH SCH ×3 (01:13→17:32)
[2018-09-14] MEDS: METOPROLOL TARTRATE 5 MG/5 ML VIAL IVPUSH SCH ×3 (03:00→17:31)
[2018-09-14] MEDS: ANAGRELIDE HCL 1 MG PO SCH ×3 (06:07→21:21)
[2018-09-14 06:35] LABS: BASO % 0.9 % (0-2.0); HEMOGLOBIN 9.1 GM/dL (11.7-16.9); LYMPH % 4.1 % (8-40); MCH 29.5 pg (25.7-33.7); MCHC 33.7 g/dl (32.0-35.9); MEAN CELL VOLUME 87.6 fl (80-96); MEAN PLT VOLUME 9.2 fl (7.5-11.1); MONO % 1.3 % (3.8-10.2); NEUT % 93.7 % (42.8-82.8); RBC 3.08 M/mm3 (4.00-5.60); RDW 18.8 % (11.9-15.9); WHITE BLOOD COUNT 23.8 K/mm3 (4.0-10.0)
[2018-09-14 06:40] LABS: PLATELET COUNT 1147 K/MM3 (134-434)
[2018-09-14 06:47] LABS: INR 1.25 (0.83-1.09); PROTHROMBIN TIME (PATIENT) 14.8 SEC (9.7-13.0)
[2018-09-14 06:49] LABS: ACTIVATED PTT 31.2 SECONDS (25.2-36.5)
[2018-09-14 06:57] LABS: ALBUMIN 3.6 g/dl (3.4-5.0); ALK PHOS 57 U/L (45-117); ANION GAP 5 MMOL/L (8-16); BLOOD UREA NITROGEN 33 mg/dL (7-18); CALCIUM 8.7 mg/dL (8.5-10.1); CHLORIDE 111 mmol/L (98-107); CO2 31 mmol/L (21-32); CREATININE 0.5 mg/dL (0.55-1.3); GLUCOSE,RANDOM 147 mg/dL (74-106); MAGNESIUM 2.3 mg/dL (1.8-2.4); PHOSPHOROUS 2.3 mg/dL (2.5-4.9); POTASSIUM 4.9 mmol/L (3.5-5.1); SGOT/AST 16 U/L (15-37); SGPT/ALT 12 U/L (13-61); SODIUM 147 mmol/L (136-145)
[2018-09-14] MEDS: ALBUTEROL SO4 2.5/IPRATROPIUM 0.5 INH SOL 3 ML VIAL.NEB. NEB SCH ×4 (07:25→21:10)
[2018-09-14] MEDS ORDERED: dilTIAZem HCL 25 MG/5 ML - 5 ML VIAL ONE (07:28)
--- NOTE | 2018-09-14 07:36 | PN ---
Progress Note (short form) - Note Progress Note: POD#4/#3 Pt had episode of rapid a fib and started on cardizem drip and oral stalol resumed. Tolerated clears he is spitting up some blood stained mucous. Vital Signs Period Temp Pulse Resp BP Sys/Paredes Pulse Ox Last 24 Hr 98.2 F-99.1 F 63-170 10-22 120-177/56-97 99-100 GEN: A&0x3 CV: irregular Lungs: CTA b/l HEENT: dressing changed. No bleeding, she remain intact. His neck is soft. No stridor. Posterior pharynx with ecchymosis and blood clot/scab on back of pharynx Neuro: smile symmetrical, tongue midline, able to puff out cheeks symmetrically , moving all ext x4. 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
[2018-09-14] MEDS: SOTALOL HCL 80 MG TABLET (FP) PO SCH ×3 (08:44→21:20)
[2018-09-14] MEDS ORDERED: METOPROLOL TARTRATE 5 MG/5 ML VIAL IVPUSH ONE (09:01)
[2018-09-14] MEDS ORDERED: FUROSEMIDE 40 MG/4 ML INJECTABLE VIAL IVPUSH ONE (09:04)
[2018-09-14] MEDS ORDERED: PT OWN MED DRAWER 7, Y5N ONE ×2 (09:20→18:18)
[2018-09-14] MEDS: HYDROXYUREA 500 MG CAPSULE PO SCH ×2 (09:32→21:20)
[2018-09-14] MEDS: PANTOPRAZOLE SODIUM 40 MG VIAL IVPUSH SCH (09:33)
[2018-09-14] MEDS: MUPIROCIN 2% TOPICAL OINTMENT FOR DECOLONIZATION NS SCH ×2 (09:43→21:21)
[2018-09-14 09:51] LABS: ANISOCYTOSIS 0; MACROCYTOSIS 0; PLATELET ESTIMATE INCREASED; TARGET CELLS 2+
--- NOTE | 2018-09-14 09:57 | PN ---
Progress Note, Physician History of Present Illness: AWAKE, ALERT SEATED IN BED C/O OCCASIONAL COUGH NO C/O PAIN AT SURGICAL SITE AFEBRILE BC (-) CXR L ATELECTASIS - Current Medication List Current Medications: Active Medications Acetaminophen (Tylenol Suppository -) 650 mg [place] Q6H PRN PRN Reason: FEVER Albuterol/Ipratropium (Duoneb -) 1 amp NEB RQID REPLACED BY [facility] Last Admin: 09/14/18 07:25 Dose: Not Given Anagrelide HCl (Agrylin) 1 mg PO TID [facility]PL[facility] Last Admin: 09/14/18 06:07 Dose: 1 mg Benzocaine/Butamben/Tetracaine HCl (Cetacaine [place] -) 1 spray TP DAILY [facility]PL[facility]ED [facility] Last Admin: 09/13/18 18:22 Dose: 1 spray Dexamethasone Sodium Phosphate (Decadron Injection -) 6 mg IVPUSH Q8H-IV [facility]PL[facility] BY [facility] Last Admin: 09/14/18 09:32 Dose: 6 mg Hydromorphone HCl (Dilaudid Vial -) 1 mg IVPB Q6H PRN PRN Reason: PAIN LEVEL 6-10 Hydroxyurea (Hydrea -) 1,000 mg PO BID [facility]PL[facility]ED BY [facility] Last Admin: 09/14/18 09:32 Dose: 1,000 mg Nicardipine HCl 25 mg/ (Dextrose) 250 mls @ 25 mls/hr IVPB TITR REPLACED BY [facility]; Protocol Last Titration: 09/13/18 21:35 Dose: 0 mg/hr, 0 mls/hr Diltiazem HCl 125 mg/ Sodium (Chloride) 125 mls @ 5 mls/hr IVPB TITR REPLACED BY [facility]; Protocol Last Titration: 09/14/18 07:46 Dose: 15 mg/hr, 15 mls/hr Metoprolol Tartrate (Lopressor Injection -) 5 mg IVPUSH Q6H-IV REPLACED BY [facility] Last Admin: 09/14/18 08:25 Dose: 5 mg Mupirocin (Bactroban Ointment (For Decolonization) -) 1 applic NS BID REPLACED BY [facility] Stop: 09/16/18 21:59 Last Admin: 09/14/18 09:43 Dose: 1 applic Pantoprazole Sodium (Protonix Iv) 40 mg IVPUSH DAILY REPLACED BY [facility] Last Admin: 09/14/18 09:33 Dose: 40 mg Sotalol HCl (Betapace -) 80 mg PO BID REPLACED BY [facility] Last Admin: 02/08/19 09:31 Dose: Not Given - Objective Vital Signs: Vital Signs Temperature 98.2 F 09/14/18 01:00 Pulse Rate 135 H 09/14/18 09:30 Respiratory Rate 28 H 09/14/18 08:40 Blood Pressure 170/76 09/14/18 09:30 O2 Sat by Pulse Oximetry (%) 100 09/13/18 20:55 Constitutional: Yes: No Distress Eyes: Yes: Conjunctiva Clear Neck: Yes: Other (HAMMAD IN PLACE L NECK WOUND. NO ERYTHEMA.) Cardiovascular: Yes: Tachycardia, S1, S2. No: Regular Rate and Rhythm Respiratory: Yes: Other (FEW CREPITATIONS L BASE) Gastrointestinal: Yes: Normal Bowel Sounds, Soft. No: Tenderness Edema: No Labs: CBC, BMP 09/14/18 05:30 09/14/18 05:30 INR, PTT INR 1.25 (0.83-1.09) H 09/14/18 05:30 Fibrinogen 259.0 mg/dL (238-498) D 09/13/18 05:45 Assessment/Plan LOW GRADE POST OP FEVER RESOLVED BC (-) ATELECTASIS S/P L CEA, EVACUATION OF HEMATOMA MDS/ LEUKOCYTOSIS/ THROMBOCYTOSIS OBSERVE OFF ANTIBIOTICS
[2018-09-14] MEDS ORDERED: TETRACAINE/BENZOCAINE/BUTAMBEN 20 GM SPR TP PRN (11:47)
--- NOTE | 2018-09-14 12:11 | PN ---
Progress Note (short form) - Note Progress Note: cardiology, covering for Dr Childs s: no cp sob palps dizzy. still on dilt gtt o: Vital Signs Period Temp Pulse Resp BP Sys/Paredes Pulse Ox Last 24 Hr 98.2 F-99.1 F 63-170 10-28 120-176/56-103 99-100 Respiratory: Yes: CTA Bilaterally Gastrointestinal: Yes: Normal Bowel Sounds, Soft. No: Tenderness Cardiovascular: Yes: Pulse Irregular JVD: No PMI: Non-Displaced Heart Sounds: Yes: S1, S2. No: Gallop Murmur: No: Systolic Murmur Edema: No no jaundice diaphoresis Current Medications Generic Name Dose Route Start Last Admin Trade Name Freq PRN Reason Stop Dose Admin Acetaminophen 650 mg 09/11/18 19:48 Tylenol Suppository - [place] Q6H PRN FEVER Albuterol/Ipratropium 1 amp 09/13/18 20:00 09/14/18 11:25 Duoneb - NEB Not Given RQID [facility] Anagrelide HCl 1 mg 09/13/18 22:00 09/14/18 06:07 Agrylin PO 1 mg TID [facility] Administration Benzocaine/Butamben/Tetracaine HCl 1 spray 09/14/18 11:47 Cetacaine [place] - TP Q24H PRN ORAL PAIN/MOUTH SORES Dexamethasone Sodium Phosphate 6 mg 09/13/18 13:31 09/14/18 09:32 Decadron Injection - IVPUSH 09/15/18 07:00 6 mg Q8H-IV [facility] Administration Hydromorphone HCl 1 mg 09/11/18 19:48 Dilaudid Vial - IVPB Q6H PRN PAIN LEVEL 6-10 Hydroxyurea 1,000 mg 09/13/18 10:00 09/14/18 09:32 Hydrea - PO 1,000 mg BID [facility] Administration Nicardipine HCl 25 mg/ 250 mls @ 25 mls/hr 09/13/18 13:15 09/13/18 21:35 Dextrose IVPB 0 mg/hr TITR [facility] 0 mls/hr Titration Protocol 2.5 MG/HR Diltiazem HCl 125 mg/ Sodium 125 mls @ 5 mls/hr 09/13/18 17:45 09/14/18 07:46 Chloride IVPB 15 mg/hr TITR [facility] 15 mls/hr Titration Protocol 5 MG/HR Metoprolol Tartrate 5 mg 09/12/18 10:00 09/14/18 08:25 Lopressor Injection - IVPUSH 5 mg Q6H-IV [facility] Administration Mupirocin 1 applic 09/11/18 22:00 09/14/18 09:43 Bactroban Ointment (For Decolonization) - NS 09/16/18 21:59 1 applic BID [facility] Administration Pantoprazole Sodium 40 mg 09/12/18 10:00 09/14/18 09:33 Protonix Iv IVPUSH 40 mg DAILY [facility] Administration Sotalol HCl 80 mg 09/14/18 10:00 09/14/18 09:31 Betapace - PO Not Given BID [facility] Laboratory Last Values WBC 23.8 K/mm3 (4.0-10.0) H 09/14/18 05:30 RBC 3.08 M/mm3 (4.00-5.60) L 09/14/18 05:30 Hgb 9.1 GM/dL (11.7-16.9) L 09/14/18 05:30 Hct 27.0 % (35.4-49) L 09/14/18 05:30 MCV 87.6 fl (80-96) 09/14/18 05:30 MCH 29.5 pg (25.7-33.7) 09/14/18 05:30 MCHC 33.7 g/dl (32.0-35.9) 09/14/18 05:30 RDW 18.8 % (11.9-15.9) H 09/14/18 05:30 Plt Count 1147 K/MM3 (134-434) H 09/14/18 05:30 MPV 9.2 fl (7.5-11.1) 09/14/18 05:30 Absolute Neuts (auto) 22.3 K/mm3 (1.5-8.0) H 09/14/18 05:30 Total Counted 100 09/12/18 05:30 Neutrophils % 93.7 % (42.8-82.8) H 09/14/18 05:30 Neutrophils % (Manual) 93.9 % (42.8-82.8) H 09/14/18 05:30 Band Neutrophils % 5.1 % 09/14/18 05:30 Lymphocytes % 4.1 % (8-40) L 09/14/18 05:30 Lymphocytes % (Manual) 0.0 % (8-40) L 09/14/18 05:30 Monocytes % 1.3 % (3.8-10.2) L 09/14/18 05:30 Monocytes % (Manual) 0 % (3.8-10.2) L D 09/14/18 05:30 Eosinophils % 0.0 % (0-4.5) 09/14/18 05:30 Eosinophils % (Manual) 0.0 % (0-4.5) 09/14/18 05:30 Basophils % 0.9 % (0-2.0) 09/14/18 05:30 Basophils % (Manual) 0.0 % (0-2.0) 09/14/18 05:30 Myelocytes % (Man) 1 % (0-2) D 09/14/18 05:30 Promyelocytes % (Man) 0 % (0-2) 09/14/18 05:30 Blast Cells % (Manual) 0 % (0-0) 09/14/18 05:30 Nucleated RBC % 0 % (0-0) 09/14/18 05:30 Metamyelocytes 0 % (0-2) 09/14/18 05:30 Differential Comment Man diff performed 09/11/18 15:25 Hypochromia 0 09/14/18 05:30 Platelet Estimate Increased 09/14/18 05:30 Platelet Comment Giant platelets 09/12/18 05:30 Platelet Comment Slide scanned. 09/11/18 15:25 Polychromasia 0 09/14/18 05:30 Poikilocytosis 2+ 09/14/18 05:30 Basophilic Stippling 1+ 09/14/18 05:30 Anisocytosis 0 09/14/18 05:30 Microcytosis 0 09/14/18 05:30 Macrocytosis 0 09/14/18 05:30 Target Cells 2+ 09/14/18 05:30 Stomatocytes 1+ 09/14/18 05:30 ESR 7 mm/hr (0-20) 09/14/18 10:00 PT with INR 14.80 SEC (9.7-13.0) H 09/14/18 05:30 INR 1.25 (0.83-1.09) H 09/14/18 05:30 PTT (Actin FS) 31.2 SECONDS (25.2-36.5) 09/14/18 05:30 Fibrinogen 259.0 mg/dL (238-498) D 09/13/18 05:45 Sodium 147 mmol/L (136-145) H 09/14/18 05:30 Potassium 4.9 mmol/L (3.5-5.1) 09/14/18 05:30 Plasma Potassium 5.2 mmol/L (3.5-5.2) 09/12/18 08:45 Chloride 111 mmol/L (98-107) H 09/14/18 05:30 Carbon Dioxide 31 mmol/L (21-32) 09/14/18 05:30 Anion Gap 5 MMOL/L (8-16) L 09/14/18 05:30 BUN 33 mg/dL (7-18) H 09/14/18 05:30 Creatinine 0.5 mg/dL (0.55-1.3) L 09/14/18 05:30 Creat Clearance w eGFR > 60 (>60) 09/14/18 05:30 POC Glucometer 217 UNITS (80-120) 09/13/18 20:02 Random Glucose 147 mg/dL (74-106) H 09/14/18 05:30 Lactic Acid 1.7 mmol/L (0.4-2.0) 09/14/18 10:00 Calcium 8.7 mg/dL (8.5-10.1) 09/14/18 05:30 Phosphorus 2.3 mg/dL (2.5-4.9) L 09/14/18 05:30 Magnesium 2.3 mg/dL (1.8-2.4) 09/14/18 05:30 Total Bilirubin 1.0 mg/dL (0.2-1) 09/14/18 05:30 AST 16 U/L (15-37) 09/14/18 05:30 ALT 12 U/L (13-61) L 09/14/18 05:30 Alkaline Phosphatase 57 U/L (45-117) 09/14/18 05:30 Creatine Kinase 59 U/L (26-308) 09/11/18 22:20 Troponin I 0.06 ng/ml (0.00-0.05) H 09/14/18 10:00 C-Reactive Protein 0.8 MG/DL (0.00-0.3) H 09/14/18 10:00 B-Natriuretic Peptide 6457.7 pg/ml (5-125) H 09/13/18 16:30 Total Protein 6.0 g/dl (6.4-8.2) L 09/14/18 05:30 Albumin 3.6 g/dl (3.4-5.0) 09/14/18 05:30 Blood Type B POSITIVE 09/10/18 12:53 Antibody Screen Negative 09/10/18 12:53 Crossmatch See Detail 09/10/18 12:53 Crossmatch IS Only See Detail 09/10/18 12:53 echo 07/2016: nl lv/rv, mod arnulfo, mod mr, mod-sev tr, rvsp 50-60 tele: afib, with rvr a/p: 73 yr old man with a hx of HTN, MPD, hx of paroxysmal Afib, hemachromatosis, left ventricular diastolic dysfunction, recurring anemia, thrombocytopenia and critical carotid artery stenosis, underwent left carotid end artectomy complicated by left neck hematoma. pafib: -maintained on sotalol at home, held here while npo and then had afib with rvr so started dilt gtt. Now able to take po so sotalol started this am. Titrate off dilt as possible. Cont tele. -not on ac 2/2 anemia from MDS, has been on asa carotid stenosis s/p cea: -vascular following htn: -stable mds: -per heme elevated trop: -trop in borderline range with flat trend, not c/w acs. likely due to afib with rvr.
[2018-09-14] MEDS ORDERED: PHENOL 177 ML SPRAY BOTTLE MM PRN (12:14)
--- NOTE | 2018-09-14 12:36 | PN ---
Teaching Attending Note Name of Resident: Reba Cotton ATTENDING PHYSICIAN STATEMENT I saw and evaluated the patient. I reviewed the resident's note and discussed the case with the resident. I agree with the resident's findings and plan as documented. SUBJECTIVE: Patient seen and examined in the ICU. Remains extubated. Awake and alert. Some congested cough. Pain at the surgical site is better. OBJECTIVE: Intake & Output 09/11/18 09/12/18 09/13/18 09/14/18 23:59 23:59 23:59 23:59 Intake Total 3891 2921 2727 407 Output Total 805 1048 3450 154 Balance 3086 1873 -723 253 Weight 139 lb 142 lb 10.225 oz Last Vital Signs Temp Pulse Resp BP Pulse Ox 98.4 F 76 22 H 180/76 H 100 09/14/18 10:53 09/14/18 12:19 09/14/18 10:53 09/14/18 12:19 09/13/18 20:55 Active Medications Acetaminophen (Tylenol Suppository -) 650 mg [place] Q6H PRN PRN Reason: FEVER Albuterol/Ipratropium (Duoneb -) 1 amp NEB RQID [facility] Last Admin: 09/14/18 11:25 Dose: Not Given Anagrelide HCl (Agrylin) 1 mg PO TID [facility] Last Admin: 09/14/18 06:07 Dose: 1 mg Dexamethasone Sodium Phosphate (Decadron Injection -) 6 mg IVPUSH Q8H-IV [facility] Stop: 09/15/18 07:00 Last Admin: 09/14/18 09:32 Dose: 6 mg Hydromorphone HCl (Dilaudid Vial -) 1 mg IVPB Q6H PRN PRN Reason: PAIN LEVEL 6-10 Hydroxyurea (Hydrea -) 1,000 mg PO BID [facility] Last Admin: 09/14/18 09:32 Dose: 1,000 mg Nicardipine HCl 25 mg/ (Dextrose) 250 mls @ 25 mls/hr IVPB TITR [facility]; Protocol Last Titration: 09/13/18 21:35 Dose: 0 mg/hr, 0 mls/hr Diltiazem HCl 125 mg/ Sodium (Chloride) 125 mls @ 5 mls/hr IVPB TITR [facility]; Protocol Last Titration: 09/14/18 12:19 Dose: 10 mg/hr, 10 mls/hr Metoprolol Tartrate (Lopressor Injection -) 5 mg IVPUSH Q6H-IV [facility] Last Admin: 09/14/18 08:25 Dose: 5 mg Mupirocin (Bactroban Ointment (For Decolonization) -) 1 applic NS BID [facility] Stop: 09/16/18 21:59 Last Admin: 09/14/18 09:43 Dose: 1 applic Pantoprazole Sodium (Protonix Iv) 40 mg IVPUSH DAILY [facility] Last Admin: 09/14/18 09:33 Dose: 40 mg Phenol/Menthol (Chloraseptic -) 1 spray MM Q6H PRN PRN Reason: SORE THROAT Sotalol HCl (Betapace -) 80 mg PO BID [facility] Last Admin: 09/14/18 09:31 Dose: Not Given Gen: Extubated, NAD Heart: RRR Lung: decreased breath sounds at the bases Abd: soft, nontender Ext: no edema Laboratory Results - last 24 hr 09/10/18 09/12/18 09/13/18 12:53 08:45 05:30 WBC RBC Hgb Hct MCV MCH MCHC RDW Plt Count MPV Absolute Neuts (auto) Neutrophils % Neutrophils % (Manual) Band Neutrophils % Lymphocytes % Lymphocytes % (Manual) Monocytes % Monocytes % (Manual) Eosinophils % Eosinophils % (Manual) Basophils % Basophils % (Manual) Myelocytes % (Man) Promyelocytes % (Man) Blast Cells % (Manual) Nucleated RBC % Metamyelocytes Hypochromia Platelet Estimate Polychromasia Poikilocytosis Basophilic Stippling Anisocytosis Microcytosis Macrocytosis Target Cells Stomatocytes ESR PT with INR INR PTT (Actin FS) Sodium 145 Potassium 6.2 H* Plasma Potassium 5.2 Chloride 113 H Carbon Dioxide 25 Anion Gap 7 L BUN 47 H Creatinine 0.9 Creat Clearance w eGFR > 60 POC Glucometer Random Glucose 118 H Lactic Acid Calcium 8.6 Phosphorus 5.5 H Magnesium 2.3 Total Bilirubin 0.7 AST 12 L ALT 13 Alkaline Phosphatase 59 Troponin I < 0.02 C-Reactive Protein B-Natriuretic Peptide Total Protein 5.8 L Albumin 3.6 Crossmatch See Detail 09/13/18 09/13/18 09/14/18 16:30 20:02 05:30 WBC 23.8 H RBC 3.08 L Hgb 9.1 L Hct 27.0 L MCV 87.6 MCH 29.5 MCHC 33.7 RDW 18.8 H Plt Count 1147 H MPV 9.2 Absolute Neuts (auto) 22.3 H Neutrophils % 93.7 H Neutrophils % (Manual) 93.9 H Band Neutrophils % 5.1 Lymphocytes % 4.1 L Lymphocytes % (Manual) 0.0 L Monocytes % 1.3 L Monocytes % (Manual) 0 L D Eosinophils % 0.0 Eosinophils % (Manual) 0.0 Basophils % 0.9 Basophils % (Manual) 0.0 Myelocytes % (Man) 1 D Promyelocytes % (Man) 0 Blast Cells % (Manual) 0 Nucleated RBC % 0 Metamyelocytes 0 Hypochromia 0 Platelet Estimate Increased Polychromasia 0 Poikilocytosis 2+ Basophilic Stippling 1+ Anisocytosis 0 Microcytosis 0 Macrocytosis 0 Target Cells 2+ Stomatocytes 1+ ESR PT with INR INR PTT (Actin FS) Sodium 145 Potassium 4.8 Plasma Potassium Chloride 114 H Carbon Dioxide 28 Anion Gap 4 L BUN 38 H Creatinine 0.6 Creat Clearance w eGFR > 60 POC Glucometer 217 Random Glucose 149 H Lactic Acid Calcium 9.5 Phosphorus Magnesium Total Bilirubin AST ALT Alkaline Phosphatase Troponin I 0.05 C-Reactive Protein B-Natriuretic Peptide 6457.7 H Total Protein Albumin Crossmatch 09/14/18 09/14/18 09/14/18 05:30 05:30 10:00 WBC RBC Hgb Hct MCV MCH MCHC RDW Plt Count MPV Absolute Neuts (auto) Neutrophils % Neutrophils % (Manual) Band Neutrophils % Lymphocytes % Lymphocytes % (Manual) Monocytes % Monocytes % (Manual) Eosinophils % Eosinophils % (Manual) Basophils % Basophils % (Manual) Myelocytes % (Man) Promyelocytes % (Man) Blast Cells % (Manual) Nucleated RBC % Metamyelocytes Hypochromia Platelet Estimate Polychromasia Poikilocytosis Basophilic Stippling Anisocytosis Microcytosis Macrocytosis Target Cells Stomatocytes ESR PT with INR 14.80 H INR 1.25 H PTT (Actin FS) 31.2 Sodium 147 H Potassium 4.9 Plasma Potassium Chloride 111 H Carbon Dioxide 31 Anion Gap 5 L BUN 33 H Creatinine 0.5 L Creat Clearance w eGFR > 60 POC Glucometer Random Glucose 147 H Lactic Acid Calcium 8.7 Phosphorus 2.3 L Magnesium 2.3 Total Bilirubin 1.0 AST 16 ALT 12 L Alkaline Phosphatase 57 Troponin I 0.07 H 0.06 H C-Reactive Protein 0.8 H B-Natriuretic Peptide Total Protein 6.0 L Albumin 3.6 Crossmatch 09/14/18 09/14/18 10:00 10:00 WBC RBC Hgb Hct MCV MCH MCHC RDW Plt Count MPV Absolute Neuts (auto) Neutrophils % Neutrophils % (Manual) Band Neutrophils % Lymphocytes % Lymphocytes % (Manual) Monocytes % Monocytes % (Manual) Eosinophils % Eosinophils % (Manual) Basophils % Basophils % (Manual) Myelocytes % (Man) Promyelocytes % (Man) Blast Cells % (Manual) Nucleated RBC % Metamyelocytes Hypochromia Platelet Estimate Polychromasia Poikilocytosis Basophilic Stippling Anisocytosis Microcytosis Macrocytosis Target Cells Stomatocytes ESR 7 PT with INR INR PTT (Actin FS) Sodium Potassium Plasma Potassium Chloride Carbon Dioxide Anion Gap BUN Creatinine Creat Clearance w eGFR POC Glucometer Random Glucose Lactic Acid 1.7 Calcium Phosphorus Magnesium Total Bilirubin AST ALT Alkaline Phosphatase Troponin I C-Reactive Protein B-Natriuretic Peptide Total Protein Albumin Crossmatch ASSESSMENT AND PLAN: Left Carotid Stenosis s/p L CEA Post op Hematoma/Bleeding Acute Respiratory Failure Atrial Fibrillation Myeloproliferative Disorder HTN COPD - Decrease decadron - monitor H/H - Normal transfusion thresholds - monitor drain output - BP control - pain control - rate control - AC /Antiplatelet per Heme & Surgery - Hydrea per onc - DVT prophylaxis - Cardiac telemetry monitoring Dr Abad
--- NOTE | 2018-09-14 13:15 | EKG ---
Test Reason : Blood Pressure : / mmHG Vent. Rate : 132 BPM Atrial Rate : 125 BPM P-R Int : 000 ms QRS Dur : 082 ms QT Int : 310 ms P-R-T Axes : 000 -06 -26 degrees QTc Int : 459 ms ATRIAL FIBRILLATION WITH RAPID VENTRICULAR RESPONSE NONSPECIFIC ST AND T WAVE ABNORMALITY ABNORMAL ECG WHEN COMPARED WITH ECG OF 13-SEP-2018 17:56, NO SIGNIFICANT CHANGE WAS FOUND Confirmed by IGOR WALLACE, AMENA ([id number]) on 09/14/2018 1:15:11 PM Referred By: Hernan Holloway Confirmed By:AMENA COSTA MD
--- NOTE | 2018-09-14 13:24 | EKG ---
Test Reason : Blood Pressure : / mmHG Vent. Rate : 136 BPM Atrial Rate : 138 BPM P-R Int : 000 ms QRS Dur : 084 ms QT Int : 284 ms P-R-T Axes : 000 -04 100 degrees QTc Int : 427 ms ATRIAL FIBRILLATION WITH RAPID VENTRICULAR RESPONSE NONSPECIFIC ST AND T WAVE ABNORMALITY ABNORMAL ECG WHEN COMPARED WITH ECG OF 13-SEP-2018 09:13, ATRIAL FIBRILLATION HAS REPLACED SINUS RHYTHM Confirmed by IGOR WALLACE, AMENA ([id number]) on 09/14/2018 1:24:01 PM Referred By: Hernan Holloway Confirmed By:AMENA COSTA MD
[2018-09-14] MEDS: NICARDIPINE 25 MG in DEXTROSE 5%-WATER - 240 ML IVPB SCH (13:38)
--- NOTE | 2018-09-14 14:06 | PN ---
Progress Note, [facility] - Note Progress Note: Selected Entries 09/13/18 09/13/18 09/13/18 05:00 10:10 14:00 Breakfast Diet Tolerated Temperature 98.5 F 98.6 F 99.1 F 09/13/18 09/14/18 09/14/18 17:00 01:00 09:00 Breakfast 50% Diet Tolerated Well Temperature 98.6 F 98.2 F 09/14/18 09/14/18 10:53 11:26 Breakfast 50% Diet Tolerated Fair Temperature 98.4 F Laboratory Tests 09/12/18 09/13/18 09/14/18 05:30 05:30 05:30 WBC 23.4 H 29.0 H 23.8 H Cognitively intact. Flat affect. Mild dysphonia. Pt c/o throat pain when he coughs but not while swallowing. (-) 3 oz water test. Silent aspiration can not be r/o at bedside. Posterior right pharynx, at anterior faucial arch, there seems to be a small hematoma, but no nidia, red blood. Pt feels like somthing is in his throat. Intubation was reported to have been difficult. Poor PO intake Consider ENT to visualize pharynx/larynx. Continue puree/thin liquid, add Magic cup, Ann-Marie Ensure. Monitor pulm/nutritional status/signs of aspiration
--- NOTE | 2018-09-14 15:51 | PN ---
Progress Note (short form) - Note Progress Note: SUBJECTIVE Patient seen and examined at the bedside. Yesterday complained of trouble swallowing and throat irritation, but still satting well with no evidence of stridor or voice muffling. OBJECTIVE Vital Signs Temperature 98.4 F 09/14/18 10:53 Pulse Rate 82 09/14/18 15:07 Respiratory Rate 20 09/14/18 13:00 Blood Pressure 173/73 H 09/14/18 15:07 O2 Sat by Pulse Oximetry (%) 100 09/14/18 09:00 General: Awake, alert Head: No signs of trauma Eyes: EOMI, sclera anicteric ENT: Small hematoma present at posterior right pharynx Neck: Surgical site is clean, dry, and intact Lungs: Diminished breath sounds at bilateral bases Cardio: Regular rhythm, S1 and S2 present Abdomen: Soft, nontender Extremities: Normal range of motion, Distal pulses present SKIN: Warm, Dry, normal turgor Neurologic: CN II through XII grossly intact, Normal speech ASSESSMENT 73yo M with myeloproliferative disorder, hypertension, Afib, COPD status post left carotid endarterectomy on 09/10/18. Course complicated by expanding neck hematoma which was evacuated on 09/11/18. POD #3/#4. PLAN POD #3/#4 -Hematoma on posterior pharynx: ENT consulted -Pain control: Dilauded 1 mg q6hr PRN -head of bed elevated 30-45 degree -aspiration precautions -Dexamethasone q8h, lowered dose to 6mg from 10mg: dc steroids in the AM -vascular surgery following NEURO No longer sedated AAOx3 CV History of hypertension, AFib Elevated Tpn <0.02--->0.05--->0.07--->0.06, likely due to Afib with RVR Elevated BNP=6.5K -Diltiazem ggt for BP control -Resumed home sotalol -Lopressor PRN for rate control -Goal Systolic: 130s-140s -Re-started ASA 81mg -Cardiology following HEME Myeloproliferative disorder -dependent on transfusions, last transfused 09/07/18 -Normal transfusion threshold -Hydroxyurea for thrombocythemia -Heme/onc following PULM RUL Atelectasis History of COPD -Extubated 09/13/18 -on room air -incentive spirometer FEN NS @75cc/hr Follow electrolytes, replete as needed Advanced to puree diet with supplemental magic cup and chocolate ensure PPX VTE: SCD's GI: Protonix #Disposition: Continue to monitor in the ICU #Full Code
[2018-09-14] MEDS: ASPIRIN COATED 81 MG TABLET.EC PO SCH (17:31)
[2018-09-14] MEDS: DILTIAZEM INJECTION 125 MG in SODIUM CHLORIDE 100 ML IVPB SCH (17:45)
[2018-09-14] MEDS: amLODIPine BESYLATE 5 MG TABLET (FP) PO SCH (18:19)
--- NOTE | 2018-09-14 19:46 | PN ---
Progress Note (short form) - Note Progress Note: Patient seen and examined Seen after extubation this morning and later this evening Oriented in place,person, tie doing well Last Vital Signs Temp Pulse Resp BP Pulse Ox 98.2 F 98 H 18 141/64 100 09/14/18 01:00 09/14/18 01:00 09/14/18 01:00 09/14/18 01:00 09/13/18 20:55 Cor: RSR, No murmurs, No gallops Lungs: Clear to P&A Abd: Soft, Normal bowel sounds, No organomegaly Ext:No significant edema Labs/Meds reviewed A/P 73 y/o patient with MPD, afib, underwent left CEA Developed postoperative hematoma/bleeding --s/p reexploration and suturing Now extubated Doing relatively well Resume anagrelide and hydrea for thrombocytosis Resume ASA discussed with family at bed side
[2018-09-15] MEDS: DEXAMETHASONE SOD PHOSPHATE 10 MG/1 ML VIAL IVPUSH SCH (04:45)
[2018-09-15 07:03] LABS: BASO % 0.6 % (0-2.0); HEMATOCRIT 26.8 % (35.4-49); LYMPH % 3.9 % (8-40); MCH 29.8 pg (25.7-33.7); MCHC 33.5 g/dl (32.0-35.9); MEAN CELL VOLUME 88.9 fl (80-96); MONO % 3.5 % (3.8-10.2); RBC 3.02 M/mm3 (4.00-5.60); RDW 18.4 % (11.9-15.9); WHITE BLOOD COUNT 16.4 K/mm3 (4.0-10.0)
[2018-09-15] MEDS: ANAGRELIDE HCL 1 MG PO SCH ×3 (07:14→21:16)
[2018-09-15 07:21] LABS: ALBUMIN 3.4 g/dl (3.4-5.0); ALK PHOS 57 U/L (45-117); ANION GAP 5 MMOL/L (8-16); BLOOD UREA NITROGEN 36 mg/dL (7-18); CALCIUM 8.8 mg/dL (8.5-10.1); CHLORIDE 104 mmol/L (98-107); CO2 33 mmol/L (21-32); CREATININE 0.5 mg/dL (0.55-1.3); GLUCOSE,RANDOM 107 mg/dL (74-106); MAGNESIUM 2.2 mg/dL (1.8-2.4); PHOSPHOROUS 2.5 mg/dL (2.5-4.9); POTASSIUM 5.4 mmol/L (3.5-5.1); SGOT/AST 13 U/L (15-37); SGPT/ALT 12 U/L (13-61); SODIUM 142 mmol/L (136-145); TOT PROT 5.8 g/dl (6.4-8.2)
[2018-09-15 07:24] LABS: INR 1.28 (0.83-1.09); PROTHROMBIN TIME (PATIENT) 15.2 SEC (9.7-13.0)
[2018-09-15 07:27] LABS: ACTIVATED PTT 31.1 SECONDS (25.2-36.5)
[2018-09-15 07:50] LABS: PLATELET COUNT 1119 K/MM3 (134-434)
[2018-09-15] MEDS: TETRACAINE/BENZOCAINE/BUTAMBEN 20 GM SPR TP SCH (08:11)
--- NOTE | 2018-09-15 08:15 | PN ---
Progress Note (short form) - Note Progress Note: PULM/CCM POD#5 s/p L CEA Pt Seen and Examined in the ICU. CA+OX3, NAD, L side of Neck surgical site C/D/I , no bleeding. ACTIVE MEDS: Acetaminophen (Tylenol Suppository -) 650 mg [place] Q6H PRN PRN Reason: FEVER Albuterol/Ipratropium (Duoneb -) 1 amp NEB RQID [facility] Last Admin: 09/15/18 20:15 Dose: 1 amp Anagrelide HCl (Agrylin) 1 mg PO TID [facility] Last Admin: 09/15/18 21:16 Dose: 1 mg Aspirin (Ecotrin -) 81 mg PO DAILY [facility] Last Admin: 09/15/18 09:03 Dose: 81 mg Diltiazem HCl (Cardizem Injection -) 10 mg IVPUSH Q4H PRN PRN Reason: TACHYCARDIA Last Admin: 09/15/18 09:25 Dose: 10 mg Diltiazem HCl (Cardizem -) 30 mg PO Q6HPO [facility] Last Admin: 09/15/18 23:31 Dose: 30 mg Hydromorphone HCl (Dilaudid Vial -) 1 mg IVPB Q6H PRN PRN Reason: PAIN LEVEL 6-10 Last Admin: 09/15/18 05:23 Dose: 1 mg Hydroxyurea (Hydrea -) 1,000 mg PO BID [facility] Last Admin: 09/15/18 21:15 Dose: 1,000 mg Amiodarone HCl/Dextrose (Nexterone 360 Mg/200 Ml Bag) 360 mg in 200 mls @ 16.667 mls/hr IVPB Q12H [facility]; Protocol Last Admin: 09/15/18 17:00 Dose: 16.667 mls/hr Mupirocin (Bactroban Ointment (For Decolonization) -) 1 applic NS BID [facility] Stop: 09/16/18 21:59 Last Admin: 09/15/18 21:15 Dose: 1 applic Pantoprazole Sodium (Protonix -) 40 mg PO DAILY [facility] Last Admin: 09/15/18 09:03 Dose: 40 mg Phenol/Menthol (Chloraseptic -) 1 spray MM Q6H PRN PRN Reason: SORE THROAT Last Admin: 09/14/18 18:23 Dose: 1 spray Sotalol HCl (Betapace -) 80 mg PO BID [facility] Last Admin: 09/15/18 21:14 Dose: 80 mg Tamsulosin HCl (Flomax -) 0.4 mg PO DAILY@0830 [facility] Last Admin: 09/15/18 08:53 Dose: 0.4 mg Vital Signs Period Temp Pulse Resp BP Sys/Paredes Pulse Ox Last 24 Hr 97.7 F-99.1 F 65-168 14-28 107-169/53-105 100-100 Intake & Output 09/13/18 09/14/18 09/15/18 09/16/18 23:59 23:59 23:59 23:59 Intake Total 2727 1487 916 Output Total 3450 2814 750 Balance -723 -967 166 Weight 64.7 kg 61.689 kg GEN: 73 y/o man lying comfortable in bed HEENT: PERRL, an-icteric, MMM, L side of Neck surgical site C/D/I PULM: CTAB CV: nml S1, S2, irreg irreg, unable to appreciate any G/M/R ABD: Soft, Normal bowel sounds, No organomegaly EXT: + Pulses, WWP X4, (-) edema CBC, BMP 09/15/18 05:30 09/15/18 05:30 INR, PTT INR 1.28 (0.83-1.09) H 09/15/18 05:30 Fibrinogen 259.0 mg/dL (238-498) D 09/13/18 05:45 Microbiology 09/12/18 21:40 Blood - Peripheral Venous Blood Culture - Preliminary NO GROWTH OBTAINED AFTER 72 HOURS, INCUBATION TO CONTINUE FOR 2 DAYS. 09/12/18 21:10 Blood - Peripheral Venous Blood Culture - Preliminary NO GROWTH OBTAINED AFTER 72 HOURS, INCUBATION TO CONTINUE FOR 2 DAYS. RECENT STUDIES TO NOTE: CXR 09/15: A single AP view of the chest is been submitted. Since 09/14/2018, again of the neck left clips, right port, prominent mediastinum and atelectatic changes with pleural reaction at the left base. There is calcification by the left hilum. Correlation recommended ASSESSMENT AND PLAN: Left Carotid Stenosis POD#5 s/p L CEA Post op Hematoma/Bleeding Acute Respiratory Failure Atrial Fibrillation Myeloproliferative Disorder HTN COPD - Decrease decadron - monitor H/H - Normal transfusion thresholds - monitor drain output - BP control - pain control - rate control - AC /Antiplatelet per Heme & Surgery - Hydrea per onc - DVT prophylaxis - Transfer --> Tele DGL, RUTH- PULM/CCM [facility]/ICU Critical Care Total Critical Care Time (in minutes): 39 Critical Care Statement: The care of this patient involved high complexity decision making to prevent further life threatening deterioration of the patient 's condition and/or to evaluate & treat vital organ system(s) failure or risk of failure.
[2018-09-15] MEDS: ALBUTEROL SO4 2.5/IPRATROPIUM 0.5 INH SOL 3 ML VIAL.NEB. NEB SCH ×4 (08:38→20:15)
[2018-09-15] MEDS ORDERED: PT OWN MED DRAWER 7, Y5N ONE (08:41)
[2018-09-15] MEDS: TAMSULOSIN HCL 0.4 MG CAP PO SCH (08:53)
[2018-09-15] MEDS: MUPIROCIN 2% TOPICAL OINTMENT FOR DECOLONIZATION NS SCH ×2 (09:01→21:15)
[2018-09-15] MEDS: SOTALOL HCL 80 MG TABLET (FP) PO SCH ×2 (09:02→21:14)
[2018-09-15] MEDS: HYDROXYUREA 500 MG CAPSULE PO SCH ×2 (09:03→21:15)
[2018-09-15] MEDS: PANTOPRAZOLE 40 MG TABLET (FP) PO SCH (09:03)
[2018-09-15] MEDS: amLODIPine BESYLATE 5 MG TABLET (FP) PO SCH (09:03)
[2018-09-15] MEDS: ASPIRIN COATED 81 MG TABLET.EC PO SCH (09:03)
[2018-09-15] MEDS ORDERED: METOPROLOL TARTRATE 5 MG/5 ML VIAL ONE (09:08)
[2018-09-15] MEDS ORDERED: METOPROLOL TARTRATE 5 MG/5 ML VIAL IVPUSH ONE (09:23)
[2018-09-15] MEDS ORDERED: dilTIAZem HCL 50 MG/10 ML - 10 ML VIAL IVPUSH PRN (09:23)
[2018-09-15] MEDS ORDERED: dilTIAZem HCL 125 MG/25 ML - 25 ML VIAL ONE (09:23)
[2018-09-15 10:21] LABS: ANISOCYTOSIS 0; MACROCYTOSIS 0; PLATELET ESTIMATE INCREASED; TARGET CELLS 1+
--- NOTE | 2018-09-15 10:35 | PN ---
Progress Note (short form) - Note Progress Note: cardiology, covering for Dr Childs s: no cp sob palps dizzy. o: Vital Signs Period Temp Pulse Resp BP Sys/Paredes Pulse Ox Last 24 Hr 97.7 F-99.1 F 70-168 14-28 107-180/53-105 99-100 Respiratory: Yes: CTA Bilaterally Gastrointestinal: Yes: Normal Bowel Sounds, Soft. No: Tenderness Cardiovascular: Yes: Pulse Irregular JVD: No PMI: Non-Displaced Heart Sounds: Yes: S1, S2. No: Gallop Murmur: No: Systolic Murmur Edema: No no jaundice diaphoresis Current Medications Generic Name Dose Route Start Last Admin Trade Name Freq PRN Reason Stop Dose Admin Acetaminophen 650 mg 09/11/18 19:48 Tylenol Suppository - [place] Q6H PRN FEVER Albuterol/Ipratropium 1 amp 09/13/18 20:00 09/15/18 08:38 Duoneb - NEB 1 amp RQID [facility] Administration Anagrelide HCl 1 mg 09/13/18 22:00 09/15/18 07:14 Agrylin PO 1 mg TID [facility] Administration Aspirin 81 mg 09/14/18 16:30 09/15/18 09:03 Ecotrin - PO 81 mg DAILY [facility] Administration Diltiazem HCl 10 mg 09/15/18 09:23 09/15/18 09:25 Cardizem Injection - IVPUSH 10 mg Q4H PRN Administration TACHYCARDIA Diltiazem HCl 30 mg 09/15/18 09:25 Cardizem - PO Q6HPO [facility] Hydromorphone HCl 1 mg 09/11/18 19:48 09/15/18 05:23 Dilaudid Vial - IVPB 1 mg Q6H PRN Administration PAIN LEVEL 6-10 Hydroxyurea 1,000 mg 09/13/18 10:00 09/15/18 09:03 Hydrea - PO 1,000 mg BID [facility] Administration Mupirocin 1 applic 09/11/18 22:00 09/15/18 09:01 Bactroban Ointment (For Decolonization) - NS 09/16/18 21:59 1 applic BID [facility] Administration Pantoprazole Sodium 40 mg 09/15/18 10:00 09/15/18 09:03 Protonix - PO 40 mg DAILY [facility] Administration Phenol/Menthol 1 spray 09/14/18 12:14 09/14/18 18:23 Chloraseptic - MM 1 spray Q6H PRN Administration SORE THROAT Sotalol HCl 80 mg 09/14/18 10:00 09/15/18 09:02 Betapace - PO 80 mg BID [facility] Administration Tamsulosin HCl 0.4 mg 09/15/18 08:30 09/15/18 08:53 Flomax - PO 0.4 mg DAILY@0830 [facility] Administration CBC, BMP 09/15/18 05:30 09/15/18 05:30 echo 07/2016: nl lv/rv, mod arnulfo, mod mr, mod-sev tr, rvsp 50-60 tele: afib, with rvr a/p: 73 yr old man with a hx of HTN, MPD, hx of paroxysmal Afib, hemachromatosis, left ventricular diastolic dysfunction, recurring anemia, thrombocytopenia and critical carotid artery stenosis, underwent left carotid end artectomy complicated by left neck hematoma. pafib: -maintained on sotalol at home, held here while npo and then had afib with rvr so started dilt gtt. Sotalol resumed 09/14 but still with rvr at times. Dilt gtt stopped. Will start dilt 30 po q6h and dc norvasc for better rate control. Cont tele. -not on ac 2/2 anemia from MDS, has been on asa carotid stenosis s/p cea: -vascular following htn: -high at times, monitor now that starting dilt, titrate up prn mds: -per heme elevated trop: -trop in borderline range with flat trend, not c/w acs. likely due to afib with rvr.
[2018-09-15] MEDS: dilTIAZem HCL 30 MG TABLET (FP) PO SCH ×4 (10:37→23:31)
[2018-09-15] MEDS ORDERED: AMIODARONE IN DEXTROSE,ISO-OSM 360 MG/200 ML BAG ONE (10:45)
[2018-09-15] MEDS ORDERED: AMIODARONE HCL 150 MG/3 ML VIAL ONE (10:45)
--- NOTE | 2018-09-15 11:32 | PN ---
Progress Note (short form) - Note Progress Note: Awake and alert, complains of throat pain Tachycardia 130 bpm. Neck soft swelling, serosanguinous drainage on dressing Neuro intact, non-focal No further bleeding, neuro status unchanged. Tachyarhythmia on Amiodarone drip May be OOB when stable Problem List - Problems (1) Carotid stenosis, left Code(s): I65.22 - OCCLUSION AND STENOSIS OF LEFT CAROTID ARTERY
[2018-09-15] MEDS ORDERED: AMIODARONE HCL 150 MG/3 ML VIAL IVPUSH STA (12:20)
[2018-09-15] MEDS ORDERED: AMIODARONE IN DEXTROSE,ISO-OSM 150 MG/100 ML BAG IVPB ONE (12:27)
[2018-09-15] MEDS ORDERED: AMIODARONE IN DEXTROSE,ISO-OSM 360 MG/200 ML BAG IVPB ONE (12:31)
[2018-09-15] MEDS: AMIODARONE IN DEXTROSE,ISO-OSM 360 MG/200 ML BAG IVPB SCH (17:00)
--- NOTE | 2018-09-15 17:15 | CONSULT ---
Consult - text type - Consultation Consultation Note: ENT consult 73 yo man with a hx of recent left carotid surgery who underwent a prolonged intubation and now c/o throat discomfort. P/WD male laying comfortably in bed No stridor Oral cavity/oropharynx: normal except for an ulcerated posterior right buccal mucosa, with about 1 cm of exposed buccal fat and a pea sized clot, and moderate surrounding ecchymosis. Tiny abrasion/escar on the distal uvula. 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 Recommend: observation with the expectation of wound healing by secondary intention. The ecchymosis should resolve over the next 1-2 weeks, the ulcer may take longer. Outpatient follow up with me once discharged. If he worsens clinically, reconsult
--- NOTE | 2018-09-15 22:04 | PN ---
Progress Note, Physician Chief Complaint: Admitted for left CEA History of Present Illness: Denies pain or bleeding. No complaints today - Current Medication List Current Medications: Active Medications Acetaminophen (Tylenol Suppository -) 650 mg [place] Q6H PRN PRN Reason: FEVER Albuterol/Ipratropium (Duoneb -) 1 amp NEB RQID [facility] Last Admin: 09/15/18 20:15 Dose: 1 amp Anagrelide HCl (Agrylin) 1 mg PO TID [facility] Last Admin: 09/15/18 21:16 Dose: 1 mg Aspirin (Ecotrin -) 81 mg PO DAILY [facility] Last Admin: 09/15/18 09:03 Dose: 81 mg Diltiazem HCl (Cardizem Injection -) 10 mg IVPUSH Q4H PRN PRN Reason: TACHYCARDIA Last Admin: 09/15/18 09:25 Dose: 10 mg Diltiazem HCl (Cardizem -) 30 mg PO Q6HPO [facility] Last Admin: 09/15/18 17:54 Dose: 30 mg Hydromorphone HCl (Dilaudid Vial -) 1 mg IVPB Q6H PRN PRN Reason: PAIN LEVEL 6-10 Last Admin: 09/15/18 05:23 Dose: 1 mg Hydroxyurea (Hydrea -) 1,000 mg PO BID [facility] Last Admin: 09/15/18 21:15 Dose: 1,000 mg Amiodarone HCl/Dextrose (Nexterone 360 Mg/200 Ml Bag) 360 mg in 200 mls @ 16.667 mls/hr IVPB Q12H [facility]; Protocol Last Admin: 09/15/18 17:00 Dose: 16.667 mls/hr Mupirocin (Bactroban Ointment (For Decolonization) -) 1 applic NS BID [facility] Stop: 09/16/18 21:59 Last Admin: 09/15/18 21:15 Dose: 1 applic Pantoprazole Sodium (Protonix -) 40 mg PO DAILY [facility] Last Admin: 09/15/18 09:03 Dose: 40 mg Phenol/Menthol (Chloraseptic -) 1 spray MM Q6H PRN PRN Reason: SORE THROAT Last Admin: 09/14/18 18:23 Dose: 1 spray Sotalol HCl (Betapace -) 80 mg PO BID [facility] Last Admin: 09/15/18 21:14 Dose: 80 mg Tamsulosin HCl (Flomax -) 0.4 mg PO DAILY@0830 [facility] Last Admin: 09/15/18 08:53 Dose: 0.4 mg - Objective Vital Signs: Vital Signs Temperature 98.4 F 09/15/18 17:00 Pulse Rate 87 09/15/18 18:06 Respiratory Rate 23 H 09/15/18 18:06 Blood Pressure 126/64 09/15/18 18:06 O2 Sat by Pulse Oximetry (%) 100 09/15/18 20:07 Constitutional: Yes: No Distress Eyes: Yes: Conjunctiva Clear Cardiovascular: Yes: Regular Rate and Rhythm Respiratory: Yes: Regular, CTA Bilaterally Edema: No Labs: CBC, BMP 09/15/18 05:30 09/15/18 05:30 INR, PTT INR 1.28 (0.83-1.09) H 09/15/18 05:30 Fibrinogen 259.0 mg/dL (238-498) D 09/13/18 05:45 Assessment/Plan 73M with MPD, afib, s/p left CEA c/b postoperative hematoma s/p reexploration and suturing, now extubated. Re-started on anagrelide, hydrea Daily CBC Monitor closely for bleeding
[2018-09-16] MEDS: ANAGRELIDE HCL 1 MG PO SCH ×3 (05:56→22:45)
[2018-09-16] MEDS: dilTIAZem HCL 30 MG TABLET (FP) PO SCH ×3 (05:57→17:42)
[2018-09-16] MEDS: AMIODARONE IN DEXTROSE,ISO-OSM 360 MG/200 ML BAG IVPB SCH (05:57)
[2018-09-16] MEDS: ALBUTEROL SO4 2.5/IPRATROPIUM 0.5 INH SOL 3 ML VIAL.NEB. NEB SCH ×4 (08:39→20:29)
[2018-09-16] MEDS: PANTOPRAZOLE 40 MG TABLET (FP) PO SCH (09:59)
[2018-09-16] MEDS: ASPIRIN COATED 81 MG TABLET.EC PO SCH (09:59)
[2018-09-16] MEDS: SOTALOL HCL 80 MG TABLET (FP) PO SCH ×2 (09:59→22:46)
[2018-09-16] MEDS: TAMSULOSIN HCL 0.4 MG CAP PO SCH (09:59)
[2018-09-16] MEDS: HYDROXYUREA 500 MG CAPSULE PO SCH ×2 (10:04→22:45)
[2018-09-16] MEDS: MUPIROCIN 2% TOPICAL OINTMENT FOR DECOLONIZATION NS SCH (10:09)
--- NOTE | 2018-09-16 11:55 | PN ---
Progress Note (short form) - Note Progress Note: cardiology, covering for Dr Childs s: no cp sob palps dizzy. o: Vital Signs Period Temp Pulse Resp BP Sys/Paredes Pulse Ox Last 24 Hr 98 F-99.1 F 60-87 17-28 107-140/58-75 95-100 Respiratory: Yes: CTA Bilaterally Gastrointestinal: Yes: Normal Bowel Sounds, Soft. No: Tenderness Cardiovascular: Yes: Pulse Irregular JVD: No PMI: Non-Displaced Heart Sounds: Yes: S1, S2. No: Gallop Murmur: No: Systolic Murmur Edema: No no jaundice diaphoresis Current Medications Generic Name Dose Route Start Last Admin Trade Name Freq PRN Reason Stop Dose Admin Acetaminophen 650 mg 09/11/18 19:48 Tylenol Suppository - [place] Q6H PRN FEVER Albuterol/Ipratropium 1 amp 09/13/18 20:00 09/16/18 11:16 Duoneb - NEB 1 amp RQID [facility] Administration Anagrelide HCl 1 mg 09/13/18 22:00 09/16/18 05:56 Agrylin PO 1 mg TID [facility] Administration Aspirin 81 mg 09/14/18 16:30 09/16/18 09:59 Ecotrin - PO 81 mg DAILY [facility] Administration Diltiazem HCl 10 mg 09/15/18 09:23 09/15/18 09:25 Cardizem Injection - IVPUSH 10 mg Q4H PRN Administration TACHYCARDIA Diltiazem HCl 30 mg 09/15/18 09:25 09/16/18 05:57 Cardizem - PO 30 mg Q6HPO [facility] Administration Hydromorphone HCl 1 mg 09/11/18 19:48 09/15/18 05:23 Dilaudid Vial - IVPB 1 mg Q6H PRN Administration PAIN LEVEL 6-10 Hydroxyurea 1,000 mg 09/13/18 10:00 09/16/18 10:04 Hydrea - PO 1,000 mg BID [facility] Administration Mupirocin 1 applic 09/11/18 22:00 09/16/18 10:09 Bactroban Ointment (For Decolonization) - NS 09/16/18 21:59 1 applic BID [facility] Administration Pantoprazole Sodium 40 mg 09/15/18 10:00 09/16/18 09:59 Protonix - PO 40 mg DAILY [facility] Administration Phenol/Menthol 1 spray 09/14/18 12:14 09/14/18 18:23 Chloraseptic - MM 1 spray Q6H PRN Administration SORE THROAT Sotalol HCl 80 mg 09/14/18 10:00 09/16/18 09:59 Betapace - PO 80 mg BID [facility] Administration Tamsulosin HCl 0.4 mg 09/15/18 08:30 09/16/18 09:59 Flomax - PO 0.4 mg DAILY@0830 [facility] Administration CBC, BMP 09/15/18 05:30 09/15/18 05:30 echo 07/2016: nl lv/rv, mod arnulfo, mod mr, mod-sev tr, rvsp 50-60 tele: sr a/p: 73 yr old man with a hx of HTN, MPD, hx of paroxysmal Afib, hemachromatosis, left ventricular diastolic dysfunction, recurring anemia, thrombocytopenia and critical carotid artery stenosis, underwent left carotid end artectomy complicated by left neck hematoma. pafib: -maintained on sotalol at home, held here while npo and then had afib with rvr so started dilt gtt. Sotalol resumed 09/14 but still with rvr at times. Dilt gtt stopped. On 09/15 started dilt 30 po q6h for better rate control. Overnight amio gtt was started by ICU team. Currently in sr. Will dc amio gtt as pt is already on sotalol and should not receive both meds concurrently. -not on ac 2/2 anemia from MDS, has been on asa carotid stenosis s/p cea: -vascular following htn: -high at times, monitor now that starting dilt, titrate up prn mds: -per heme elevated trop: -trop in borderline range with flat trend, not c/w acs. likely due to afib with rvr.
--- NOTE | 2018-09-16 14:11 | PN ---
Progress Note (short form) - Note Progress Note: No distress HR 70 irregular. Neck swelling improved, small amount serosanguinous drainage on gauze Neuro intact Stable OOB Problem List - Problems (1) Carotid stenosis, left Code(s): I65.22 - OCCLUSION AND STENOSIS OF LEFT CAROTID ARTERY
--- NOTE | 2018-09-16 16:03 | OP ---
DATE OF OPERATION: 09/11/2018 SURGEON: Hernan Holloway MD PHARMACY TECHNICIAN ASSISTANT: TORI Tim PROCEDURE: Exploration of left neck wound and placement of drain. PREOPERATIVE DIAGNOSIS: Hematoma of left neck following carotid endarterectomy. POSTOPERATIVE DIAGNOSIS: Hematoma of left neck following carotid endarterectomy. ANESTHESIA: General. ANESTHESIOLOGIST: Lani Mcdermott MD OPERATIVE FINDINGS: Patient is 1 day status post left carotid endarterectomy. Following surgery, he developed a moderate hematoma of the left neck which remained stable overnight, but began increasing in size the morning after surgery. He was brought back to the operating room where approximately 150 mL of hematoma was removed. There was no visible bleeding site along the carotid artery patch or surrounding tissues. OPERATIVE PROCEDURE: Following routine patient identification with side and site verification, general anesthesia was induced with endotracheal intubation. The left neck was prepped with ChloraPrep. Fang were removed. Timeout was performed. The wound was reopened, and the sutures in the platysmal layer were divided. The hematoma was evacuated, and the wound was irrigated with saline. Careful inspection did not reveal any sign of active arterial or venous bleeding. A few small sites that were oozing were controlled with cautery. A Valsalva maneuver was performed, and there was no bleeding seen. A Vimal-Perry drain was placed in the wound, brought out through a separate stab wound on the posterior neck. The drain was sutured to the skin with 3-0 nylon. The wound was irrigated with bacitracin solution, and then, the wound was closed with interrupted suture of 3-0 Vicryl on the platysmal layer and skin fang. Sterile dressing was applied. The patient was transported, still intubated, back to the intensive care unit. HERNAN HOLLOWAY M.D. [id number]
--- NOTE | 2018-09-16 16:08 | OP ---
DATE OF OPERATION: 09/11/2018 SURGEON: Hernan Askew MD RIDE OPERATOR: [place] PROCEDURE: Re-exploration of left neck wound. PREOPERATIVE DIAGNOSIS: Recurrent hemorrhage from left neck. POSTOPERATIVE DIAGNOSIS: Recurrent hemorrhage from left neck. ANESTHESIA: General. ANESTHESIOLOGIST: Dov Quiñonez MD OPERATIVE FINDINGS: Patient developed recurrent bleeding from the left neck when he became hypertensive. He was brought back to the operating room, and a bleeding site was seen at the superior edge of the carotid patch. No other bleeding sites were identified. OPERATIVE PROCEDURE: Patient was brought to the operating room, intubated, and general anesthesia was induced. The left neck was prepped with ChloraPrep. Timeout was performed. [place] were removed, and the wound was opened. There was a small amount of fresh blood in the wound. Careful inspection revealed a site of bleeding at the apex of the patch on the internal carotid artery. A suture of 6-0 Prolene was placed to control this site. Wound was irrigated. Valsalva maneuver was performed. No additional sites of significant bleeding were identified. The drain was replaced, and the wound closed over the drain with interrupted suture of 3-0 Vicryl on the platysmal muscle and skin she. Sterile dressings were applied, and the patient was returned to the ICU intubated. HERNAN ASKWE M.D. [id number]
--- NOTE | 2018-09-16 17:08 | PN ---
Progress Note (short form) - Note Progress Note: PULM/CCM POD#6 s/p L CEA Pt Seen and Examined in the ICU. CA+OX3, NAD, L side of Neck surgical site C/D/I , no bleeding. ACTIVE MEDS: Acetaminophen (Tylenol Suppository -) 650 mg [place] Q6H PRN PRN Reason: FEVER Albuterol/Ipratropium (Duoneb -) 1 amp NEB RQID [facility] Last Admin: 09/16/18 15:40 Dose: 1 amp Anagrelide HCl (Agrylin) 1 mg PO TID [facility] Last Admin: 09/16/18 13:15 Dose: 1 mg Aspirin (Ecotrin -) 81 mg PO DAILY [facility] Last Admin: 09/16/18 09:59 Dose: 81 mg Diltiazem HCl (Cardizem Injection -) 10 mg IVPUSH Q4H PRN PRN Reason: TACHYCARDIA Last Admin: 09/15/18 09:25 Dose: 10 mg Diltiazem HCl (Cardizem -) 30 mg PO Q6HPO [facility] Last Admin: 09/16/18 13:16 Dose: 30 mg Hydromorphone HCl (Dilaudid Vial -) 1 mg IVPB Q6H PRN PRN Reason: PAIN LEVEL 6-10 Last Admin: 09/15/18 05:23 Dose: 1 mg Hydroxyurea (Hydrea -) 1,000 mg PO BID [facility] Last Admin: 09/16/18 10:04 Dose: 1,000 mg Mupirocin (Bactroban Ointment (For Decolonization) -) 1 applic NS BID [facility] Stop: 09/16/18 21:59 Last Admin: 09/16/18 10:09 Dose: 1 applic Pantoprazole Sodium (Protonix -) 40 mg PO DAILY [facility] Last Admin: 09/16/18 09:59 Dose: 40 mg Phenol/Menthol (Chloraseptic -) 1 spray MM Q6H PRN PRN Reason: SORE THROAT Last Admin: 09/14/18 18:23 Dose: 1 spray Sotalol HCl (Betapace -) 80 mg PO BID [facility] Last Admin: 09/16/18 09:59 Dose: 80 mg Tamsulosin HCl (Flomax -) 0.4 mg PO DAILY@0830 [facility] Last Admin: 09/16/18 09:59 Dose: 0.4 mg Vital Signs Period Temp Pulse Resp BP Sys/Paredes Pulse Ox Last 24 Hr 98 F-98.7 F 60-87 17-34 109-140/53-67 95-100 Intake & Output 09/13/18 09/14/18 09/15/18 09/16/18 23:59 23:59 23:59 23:59 Intake Total 2727 1487 916 249.2 Output Total 3450 2454 750 1700 Balance -723 -967 166 -1450.8 Weight 64.7 kg 61.689 kg 61.28 kg GEN: 73 y/o man lying comfortable in bed HEENT: PERRL, an-icteric, MMM, L side of Neck surgical site C/D/I PULM: CTAB CV: nml S1, S2, irreg irreg, unable to appreciate any G/M/R ABD: Soft, Normal bowel sounds, No organomegaly EXT: + Pulses, WWP X4, (-) edema NEURO: Intact CBC, BMP 09/15/18 05:30 09/15/18 05:30 INR, PTT INR 1.28 (0.83-1.09) H 09/15/18 05:30 Fibrinogen 259.0 mg/dL (238-498) D 09/13/18 05:45 Microbiology 09/12/18 21:40 Blood - Peripheral Venous Blood Culture - Preliminary NO GROWTH OBTAINED AFTER 72 HOURS, INCUBATION TO CONTINUE FOR 2 DAYS. 09/12/18 21:10 Blood - Peripheral Venous Blood Culture - Preliminary NO GROWTH OBTAINED AFTER 72 HOURS, INCUBATION TO CONTINUE FOR 2 DAYS. RECENT STUDIES TO NOTE: CXR 09/15: A single AP view of the chest is been submitted. Since 09/14/2018, again of the neck left clips, right port, prominent mediastinum and atelectatic changes with pleural reaction at the left base. There is calcification by the left hilum. Correlation recommended ASSESSMENT AND PLAN: Left Carotid Stenosis POD#6 s/p L CEA Post op Hematoma/Bleeding Acute Respiratory Failure Atrial Fibrillation Myeloproliferative Disorder HTN COPD - Decrease decadron - monitor H/H - Normal transfusion thresholds - BP control - pain control - rate control - AC /Antiplatelet per Heme & Surgery - Hydrea per onc - DVT prophylaxis - Transfer --> Tele DGL, ACNP- PULM/CCM [facility]/ICU
[2018-09-16] MEDS ORDERED: PT OWN MED DRAWER 7, Y5N ONE ×2 (17:19→18:56)
--- NOTE | 2018-09-16 18:44 | PN ---
Progress Note, Physician Chief Complaint: Admitted for left CEA History of Present Illness: Feels well. No bleeding. Denies chest pain, GRADY, SOB - Current Medication List Current Medications: Active Medications Acetaminophen (Tylenol Suppository -) 650 mg CO Q6H PRN PRN Reason: FEVER Albuterol/Ipratropium (Duoneb -) 1 amp NEB RQID [facility] Last Admin: 09/16/18 15:40 Dose: 1 amp Anagrelide HCl (Agrylin) 1 mg PO TID [facility] Last Admin: 09/16/18 13:15 Dose: 1 mg Aspirin (Ecotrin -) 81 mg PO DAILY [facility] Last Admin: 09/16/18 09:59 Dose: 81 mg Diltiazem HCl (Cardizem Injection -) 10 mg IVPUSH Q4H PRN PRN Reason: TACHYCARDIA Last Admin: 09/15/18 09:25 Dose: 10 mg Diltiazem HCl (Cardizem -) 30 mg PO Q6HPO [facility] Last Admin: 09/16/18 17:42 Dose: 30 mg Hydromorphone HCl (Dilaudid Vial -) 1 mg IVPB Q6H PRN PRN Reason: PAIN LEVEL 6-10 Last Admin: 09/15/18 05:23 Dose: 1 mg Hydroxyurea (Hydrea -) 1,000 mg PO BID [facility] Last Admin: 09/16/18 10:04 Dose: 1,000 mg Mupirocin (Bactroban Ointment (For Decolonization) -) 1 applic NS BID [facility] Stop: 09/16/18 21:59 Last Admin: 09/16/18 10:09 Dose: 1 applic Pantoprazole Sodium (Protonix -) 40 mg PO DAILY [facility] Last Admin: 09/16/18 09:59 Dose: 40 mg Phenol/Menthol (Chloraseptic -) 1 spray MM Q6H PRN PRN Reason: SORE THROAT Last Admin: 09/14/18 18:23 Dose: 1 spray Sotalol HCl (Betapace -) 80 mg PO BID [facility] Last Admin: 09/16/18 09:59 Dose: 80 mg Tamsulosin HCl (Flomax -) 0.4 mg PO DAILY@0830 [facility] Last Admin: 09/16/18 09:59 Dose: 0.4 mg - Objective Vital Signs: Vital Signs Temperature 98.7 F 09/16/18 14:00 Pulse Rate 74 09/16/18 16:00 Respiratory Rate 19 09/16/18 16:00 Blood Pressure 120/53 L 09/16/18 16:00 O2 Sat by Pulse Oximetry (%) 95 09/16/18 09:00 Constitutional: Yes: No Distress, Calm Eyes: Yes: Conjunctiva Clear Cardiovascular: Yes: Regular Rate and Rhythm Respiratory: Yes: Regular, CTA Bilaterally Gastrointestinal: Yes: Soft Edema: No Labs: CBC, BMP 09/15/18 05:30 09/15/18 05:30 INR, PTT INR 1.28 (0.83-1.09) H 09/15/18 05:30 Fibrinogen 259.0 mg/dL (238-498) D 09/13/18 05:45 Assessment/Plan 73M with MPD, afib, s/p left CEA c/b postoperative hematoma s/p reexploration and suturing, now extubated. Re-started on anagrelide, hydrea Please check CBC in the morning. Monitor closely for bleeding
[2018-09-17] MEDS: dilTIAZem HCL 30 MG TABLET (FP) PO SCH ×4 (01:56→17:47)
[2018-09-17 06:09] LABS: BASO % 1.6 % (0-2.0); EOS % 2.3 % (0-4.5); HEMOGLOBIN 8.3 GM/dL (11.7-16.9); LYMPH % 10.8 % (8-40); MCH 29.7 pg (25.7-33.7); MCHC 33.4 g/dl (32.0-35.9); MEAN CELL VOLUME 88.9 fl (80-96); MEAN PLT VOLUME 8.5 fl (7.5-11.1); MONO % 3.3 % (3.8-10.2); PLATELET COUNT 870 K/MM3 (134-434); RBC 2.81 M/mm3 (4.00-5.60); RDW 18.5 % (11.9-15.9); WHITE BLOOD COUNT 14.6 K/mm3 (4.0-10.0)
[2018-09-17 06:19] LABS: INR 1.22 (0.83-1.09); PROTHROMBIN TIME (PATIENT) 14.4 SEC (9.7-13.0)
[2018-09-17 06:22] LABS: ACTIVATED PTT 31.3 SECONDS (25.2-36.5)
[2018-09-17 06:37] LABS: ALBUMIN 2.9 g/dl (3.4-5.0); ALK PHOS 50 U/L (45-117); ANION GAP 3 MMOL/L (8-16); BILIRUBIN,TOTAL 0.6 mg/dL (0.2-1); BLOOD UREA NITROGEN 33 mg/dL (7-18); CALCIUM 8.8 mg/dL (8.5-10.1); CHLORIDE 102 mmol/L (98-107); CO2 35 mmol/L (21-32); CREATININE 0.5 mg/dL (0.55-1.3); GLUCOSE,RANDOM 86 mg/dL (74-106); POTASSIUM 5.5 mmol/L (3.5-5.1); SGOT/AST 11 U/L (15-37); SGPT/ALT 13 U/L (13-61); SODIUM 140 mmol/L (136-145); TOT PROT 4.8 g/dl (6.4-8.2)
[2018-09-17] MEDS: ALBUTEROL SO4 2.5/IPRATROPIUM 0.5 INH SOL 3 ML VIAL.NEB. NEB SCH ×4 (07:20→20:13)
[2018-09-17] MEDS: TAMSULOSIN HCL 0.4 MG CAP PO SCH (08:18)
--- NOTE | 2018-09-17 08:34 | PN ---
Progress Note (short form) - Note Progress Note: Surgery POD #7 Left with post op hematoma evacuation in OR. Seen and examined in chair at bedside with no complaints. Patient continues to tolerate his diet. He denies any CP, SOB, N/V fever, chills or H/A. Vital Signs Temp 97.7 F 09/17/18 08:00 Pulse 66 09/17/18 08:00 Resp 20 09/17/18 08:00 BP 115/64 09/17/18 08:00 Pulse Ox 96 09/16/18 21:00 Intake & Output 09/16/18 09/16/18 09/17/18 11:59 23:59 11:59 Intake Total 249.2 500 Output Total 967 157 9835 Balance -650.8 -300 -1100 Weight 135 lb 1.6 oz 141 lb Intake: IV 199.2 amiodarone 199.2 Oral 50 500 Output: Urine 420 126 9628 Montes 640 619 6976 Other: Voiding Method Indwelling Catheter Indwelling Catheter Bowel Movement No No No # Bowel Movements 1 Weight Measurement Method Built in [facility] Built in [facility] CBC, BMP 09/17/18 05:30 09/17/18 05:30 PE: A&Ox3, NAD Unlabored resp on RA HEENT: dressing changed- scant ss d/c over inferior aspect of dressing. Incision with No active bleeding. Small hematoma over proximal incision continues to improve, Surrounding tissue intact with she and no evidence of collection or active d/c His neck is soft. No stridor. Neuro: smile symmetrical, tongue midline, able to puff out cheeks symmetrically , moving all ext x4. Core Manager strength equal Problem List - Problems (1) Carotid stenosis, left Assessment/Plan: POD#7 Left with post op hematoma in the setting of myeloproliferative dz. Currently stable. 1) DVT prophylaxis per heme/onc 2) OOB with assist at tolerated-PT 3) Maintain BP control Vascular attending note to follow Code(s): I65.22 - OCCLUSION AND STENOSIS OF LEFT CAROTID ARTERY
[2018-09-17] MEDS: ANAGRELIDE HCL 1 MG PO SCH ×3 (09:00→22:11)
[2018-09-17] MEDS ORDERED: PT OWN MED DRAWER 7, Y5N ONE ×2 (10:29→18:00)
[2018-09-17] MEDS: HYDROXYUREA 500 MG CAPSULE PO SCH ×2 (10:32→21:34)
[2018-09-17] MEDS: SOTALOL HCL 80 MG TABLET (FP) PO SCH ×2 (10:47→21:34)
[2018-09-17] MEDS: PANTOPRAZOLE 40 MG TABLET (FP) PO SCH (10:47)
[2018-09-17] MEDS: ASPIRIN COATED 81 MG TABLET.EC PO SCH (10:47)
--- NOTE | 2018-09-17 11:07 | PN ---
Physical Exam: SUBJECTIVE: Patient seen and examined at bedside. He endorses improving pain at right sided neck. Denies changes in vision, lightheadedness, dizziness. OBJECTIVE: Vital Signs Period Temp Pulse Resp BP Sys/Paredes Pulse Ox Last 24 Hr 97.7 F-98.7 F 65-104 18-34 97-130/51-67 96 GENERAL: The patient is awake, alert, and fully oriented, in no acute distress. HEAD: Normocephalic, atraumatic. EYES: PERRL, extraocular movements intact, sclera anicteric, conjunctiva clear. ENT: Moist mucous membranes. Posterior oropharynx erythematous. Right sided buccal mucosa lesion noted without bleeding, drainage. NECK: Trachea midline, supple without lymphadenopathy. LUNGS: Breath sounds equal, clear to auscultation bilaterally. No wheezes, no crackles. No accessory muscle use. HEART: Regular rate and rhythm, S1, S2 without murmur, rub or gallop. ABDOMEN: Soft, nontender, nondistended. Normoactive bowel sounds X4 quadrants, no guarding, no rebound tenderness. EXTREMITIES: 2+ radial, dorsalis pedis pulses bilaterally. Warm, well-perfused. No lower extremity edema bilaterally. NEUROLOGICAL: Cranial nerves II through XII grossly intact. Normal speech. Strength 5/5 bilateral upper and lower extremities. PSYCH: Normal mood, normal affect upon my encounter. SKIN: Warm, dry. Left sided neck surgical site bandaged clean,dry, nondraining. Laboratory Results - last 24 hr 09/17/18 09/17/18 09/17/18 05:30 05:30 05:30 WBC 14.6 H RBC 2.81 L Hgb 8.3 L Hct 25.0 L MCV 88.9 MCH 29.7 MCHC 33.4 RDW 18.5 H Plt Count 870 H D MPV 8.5 Absolute Neuts (auto) 12.0 H Neutrophils % 82.0 Lymphocytes % 10.8 D Monocytes % 3.3 L Eosinophils % 2.3 D Basophils % 1.6 Nucleated RBC % 0 PT with INR 14.40 H INR 1.22 H PTT (Actin FS) 31.3 Sodium 140 Potassium 5.5 H Chloride 102 Carbon Dioxide 35 H Anion Gap 3 L BUN 33 H Creatinine 0.5 L Creat Clearance w eGFR > 60 Random Glucose 86 Calcium 8.8 Total Bilirubin 0.6 AST 11 L ALT 13 Alkaline Phosphatase 50 Total Protein 4.8 L Albumin 2.9 L Active Medications Generic Name Dose Route Start Last Admin Trade Name Freq PRN Reason Stop Dose Admin Acetaminophen 650 mg 09/11/18 19:48 Tylenol Suppository - [place] Q6H PRN FEVER Albuterol/Ipratropium 1 amp 09/13/18 20:00 09/17/18 07:20 Duoneb - NEB 1 amp RQID [facility] Administration Anagrelide HCl 1 mg 09/13/18 22:00 09/17/18 09:00 Agrylin PO Not Given TID ABBY Aspirin 81 mg 09/14/18 16:30 09/17/18 10:47 Ecotrin - PO 81 mg DAILY [facility] Administration Diltiazem HCl 10 mg 09/15/18 09:23 09/15/18 09:25 Cardizem Injection - IVPUSH 10 mg Q4H PRN Administration TACHYCARDIA Diltiazem HCl 30 mg 09/15/18 09:25 09/17/18 06:37 Cardizem - PO 30 mg Q6HPO [facility] Administration Hydroxyurea 1,000 mg 09/13/18 10:00 09/17/18 10:32 Hydrea - PO 1,000 mg BID [facility] Administration Pantoprazole Sodium 40 mg 09/15/18 10:00 09/17/18 10:47 Protonix - PO 40 mg DAILY [facility] Administration Phenol/Menthol 1 spray 09/14/18 12:14 09/14/18 18:23 Chloraseptic - MM 1 spray Q6H PRN Administration SORE THROAT Sodium Polystyrene Sulfonate 15 gm 09/17/18 12:00 Kayexalate - PO 09/17/18 12:01 ONCE ONE Sotalol HCl 80 mg 09/14/18 10:00 09/17/18 10:47 Betapace - PO 80 mg BID [facility] Administration Tamsulosin HCl 0.4 mg 09/15/18 08:30 09/17/18 08:18 Flomax - PO 0.4 mg DAILY@0830 [facility] Administration ASSESSMENT/PLAN: Patient is a 73 year old male with history of hypertension, COPD, Afib not on anticoagulation, myeloproliferative disorder admitted to ICU s/p left carotid endarterectomy/. Cardiovascular Hypertension Afib -Sotalol 80mg PO BID -Diltiazem 30mg Q6H -ASA 81mg PO daily Pulmonary COPD -Currently not in exacerbation -DuoNebs QID -Maintain oxygen saturation greater than 90% Genitourinary BPH -Flomax 0.4mg PO daily Hematologic Myeloproliferative disorder -Hydroxyurea 1000mg PO BID, per hematology -Anagrelide TID, per hematology -Hematology consult appreciated -Monitor Hb/ Hct. Hyperkalimia -Kayexalate 15mg PO one time dose. -Monitor CMP daily FEN -No IV fluids. Encourage judicious oral hydration -Hyperkalemia, follow CMP -Advanced to regular diet, per speech/ swallow recommendations. Prophylaxis -Per Hematology Disposition -Patient medically stable for transfer to Telemetry floor. Visit type - Emergency Visit Emergency Visit: Yes ED Registration Date: 09/10/18 Care time: The patient presented to the Emergency Department on the above date and was hospitalized for further evaluation of their emergent condition. - New Patient This patient is new to me today: Yes Date on this admission: 09/17/18 - Critical Care Critical Care patient: Yes Total Critical Care Time (in minutes): 35 Critical Care Statement: The care of this patient involved high complexity decision making to prevent further life threatening deterioration of the patient 's condition and/or to evaluate & treat vital organ system(s) failure or risk of failure. - Discharge Referral Referred to [facility] No
[2018-09-17] MEDS ORDERED: SODIUM POLYSTYRENE SULFONATE 15 GM/60 ML BOTTLE PO ONE (12:00)
--- NOTE | 2018-09-17 12:05 | PN ---
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 ENT consult-Oral assessment noted. Swallowing reassessed. Good tolerance of Anthony Cracker/thin water. Less pain. REC: Reg diet,thin liquids, Continue Ensure/Magic cup.
--- NOTE | 2018-09-17 12:28 | PN ---
Teaching Attending Note Name of Resident: Varsha Smyth ATTENDING PHYSICIAN STATEMENT I saw and evaluated the patient. I reviewed the resident's note and discussed the case with the resident. I agree with the resident's findings and plan as documented. SUBJECTIVE: Patient seen and examined in the ICU. Awake and alert. Some dry cough. Pain at the surgical site is better. OBJECTIVE: Intake & Output 09/14/18 09/15/18 09/16/18 09/17/18 23:59 23:59 23:59 23:59 Intake Total 1487 916 749.2 Output Total 2454 750 1700 1100 Balance -967 166 -950.8 -1100 Weight 136 lb 135 lb 1.6 oz 141 lb Last Vital Signs Temp Pulse Resp BP Pulse Ox 97.8 F 65 20 119/64 96 09/17/18 10:00 09/17/18 10:00 09/17/18 10:00 09/17/18 10:00 09/17/18 09:00 Active Medications Acetaminophen (Tylenol Suppository -) 650 mg [place] Q6H PRN PRN Reason: FEVER Albuterol/Ipratropium (Duoneb -) 1 amp NEB RQID [facility] Last Admin: 09/17/18 11:37 Dose: 1 amp Anagrelide HCl (Agrylin) 1 mg PO TID [facility] Last Admin: 09/17/18 09:00 Dose: Not Given Aspirin (Ecotrin -) 81 mg PO DAILY [facility] Last Admin: 09/17/18 10:47 Dose: 81 mg Diltiazem HCl (Cardizem Injection -) 10 mg IVPUSH Q4H PRN PRN Reason: TACHYCARDIA Last Admin: 09/15/18 09:25 Dose: 10 mg Diltiazem HCl (Cardizem -) 30 mg PO Q6HPO [facility] Last Admin: 09/17/18 06:37 Dose: 30 mg Hydroxyurea (Hydrea -) 1,000 mg PO BID [facility] Last Admin: 09/17/18 10:32 Dose: 1,000 mg Pantoprazole Sodium (Protonix -) 40 mg PO DAILY [facility] Last Admin: 09/17/18 10:47 Dose: 40 mg Phenol/Menthol (Chloraseptic -) 1 spray MM Q6H PRN PRN Reason: SORE THROAT Last Admin: 09/14/18 18:23 Dose: 1 spray Sotalol HCl (Betapace -) 80 mg PO BID [facility] Last Admin: 09/17/18 10:47 Dose: 80 mg Tamsulosin HCl (Flomax -) 0.4 mg PO DAILY@0830 [facility] Last Admin: 09/17/18 08:18 Dose: 0.4 mg Gen: Awake and alert, NAD Heart: RRR Lung: decreased breath sounds at the bases Abd: soft, nontender Ext: no edema Laboratory Results - last 24 hr 09/17/18 09/17/18 09/17/18 05:30 05:30 05:30 WBC 14.6 H RBC 2.81 L Hgb 8.3 L Hct 25.0 L MCV 88.9 MCH 29.7 MCHC 33.4 RDW 18.5 H Plt Count 870 H D MPV 8.5 Absolute Neuts (auto) 12.0 H Neutrophils % 82.0 Lymphocytes % 10.8 D Monocytes % 3.3 L Eosinophils % 2.3 D Basophils % 1.6 Nucleated RBC % 0 PT with INR 14.40 H INR 1.22 H PTT (Actin FS) 31.3 Sodium 140 Potassium 5.5 H Chloride 102 Carbon Dioxide 35 H Anion Gap 3 L BUN 33 H Creatinine 0.5 L Creat Clearance w eGFR > 60 Random Glucose 86 Calcium 8.8 Total Bilirubin 0.6 AST 11 L ALT 13 Alkaline Phosphatase 50 Total Protein 4.8 L Albumin 2.9 L ASSESSMENT AND PLAN: Left Carotid Stenosis s/p L CEA Post op Hematoma/Bleeding Acute Respiratory Failure Atrial Fibrillation Myeloproliferative Disorder HTN COPD - Decadron taper - monitor H/H - Normal transfusion thresholds - monitor drain output - BP control - pain control - rate control - AC /Antiplatelet per Heme & Surgery - Hydrea per onc - DVT prophylaxis - Cardiac telemetry monitoring Dr Abad
--- NOTE | 2018-09-17 17:21 | PATH ---
Surgical Pathology Report Patient Name: PERLA NEGRON [facility]. Rec. #: [id number] /Age/Gender: 1945 (Age: 73) / M Account: [id number] Location: ICU DISPATCH SUPERVISOR Taken: 09/10/2018 Received: 09/10/2018 Reported: 09/17/2018 Physicians: Hernan Holloway M.D. Specimen(s) Received A: LYMPH NODE LEFT CERVICAL B: LEFT CAROTID ARTERY PLAQUE Clinical History Stenosis left carotid artery Final Diagnosis A. CERVICAL LYMPH NODE, LEFT, EXCISION: LYMPH NODE WITH MILD PARACORTICAL HYPERPLASIA. NO DETECTABLE INVOLVEMENT BY LYMPHOMA, SEE COMMENT. SEE COMMENT. B. CAROTID ARTERY PLAQUE, LEFT, ENDARTERECTOMY: ATHEROMATOUS AND CALCIFIED PLAQUE. SEE COMMENT. Comment: Concurrent comprehensive flow cytometry shows no clonal B-cell populations or T-cell immunophenotypic aberrancies ([id number]). This case was sent to Dr. Km Parrish from [facility], [place], [place] ([id number]) the diagnosis above reflects his opinion. See [facility] report ([id number] and [id number]) for additional details. Electronically Signed Aliya Morin M.D. Gross Description A. Received fresh labeled "left cervical lymph node," is a 1.0 x 0.4 x 0.3 cm olivera red lymph node. A home office representative portion is placed in RPMI solution and saved in the refrigerator. The remainder of the specimen is entirely submitted in one cassette. B. Received in formalin labeled "left carotid artery plaque," is a 3.0 x 1.5 x 0.3 cm aggregate of multiple olivera-yellow, irregular portions of focally calcified plaque. It Support Consultant sections are submitted in one cassette, following decalcification. /09/10/201809/10/2018
--- NOTE | 2018-09-17 20:03 | PN ---
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
--- NOTE | 2018-09-17 22:16 | PN ---
Progress Note (short form) - Note Progress Note: CCU care. Dr. Esparza's f/u appreciated 73 yr old man AA gentleman with a hx of HTN, MPD, hx of paroxysmal Afib, hemachromatosis, left ventricular diastolic dysfunction, recurring anemia, thrombocytopenia and critical carotid artery stenosis, underwent left carotid end artectomy complicated by left neck hematoma , Patient was OOB, remains in sinus rhythm, no sob, no chest pain or discomfort.no palpitations. Active Medications Acetaminophen (Tylenol Suppository -) 650 mg [place] Q6H PRN PRN Reason: FEVER Albuterol/Ipratropium (Duoneb -) 1 amp NEB RQID [facility] Last Admin: 09/18/18 11:30 Dose: 1 amp Anagrelide HCl (Agrylin) 1 mg PO TID [facility] Last Admin: 09/18/18 06:24 Dose: 1 mg Aspirin (Ecotrin -) 81 mg PO DAILY [facility] Last Admin: 09/18/18 09:25 Dose: 81 mg Diltiazem HCl (Cardizem Injection -) 10 mg IVPUSH Q4H PRN PRN Reason: TACHYCARDIA Last Admin: 09/15/18 09:25 Dose: 10 mg Diltiazem HCl (Cardizem -) 30 mg PO Q6HPO [facility] Last Admin: 09/18/18 12:17 Dose: 30 mg Hydroxyurea (Hydrea -) 1,000 mg PO BID [facility] Last Admin: 09/18/18 09:25 Dose: 1,000 mg Pantoprazole Sodium (Protonix -) 40 mg PO DAILY [facility] Last Admin: 09/18/18 09:24 Dose: 40 mg Phenol/Menthol (Chloraseptic -) 1 spray MM Q6H PRN PRN Reason: SORE THROAT Last Admin: 09/14/18 18:23 Dose: 1 spray Sotalol HCl (Betapace -) 80 mg PO BID [facility] Last Admin: 09/18/18 09:25 Dose: 80 mg Tamsulosin HCl (Flomax -) 0.4 mg PO DAILY@0830 [facility] Last Admin: 09/18/18 09:24 Dose: 0.4 mg Last Vital Signs Temp Pulse Resp BP Pulse Ox 97 F L 70 19 143/61 100 09/18/18 08:45 09/18/18 08:45 09/18/18 08:45 09/18/18 08:45 09/18/18 08:40 O: Neck: No JVD, -ve HJR on the right neck, decrease in left neck swelling, rt. carotid 2+. Heart: PMI in 5th intercostal space, no heaves or thrills, S1, S2 are normal. Grade I/ ejection systolic murmur in 2nd right intercostal space, no diastolic murmur or gallops heard. Lungs: Clear bilaterally. Abdomen: soft, nontender, no hepatomegaly or palpable masses. 2+ splenomegaly Ext: no calf tenderness or dependent edema, pulses are normal. LABS: CBC: 09/17/18 WBC: 14,600. Hb: 8.3 gm/dl. Platelet count: 693993. BMP: Na. 14o. K:5.5. CL: 102. CO2.35 mmol/liter.BUN.33.creat. 0.5mg./dl. Impression: 1. Hypertension/HCVD, currently normotensive. 2. Paroxysmal atrial fibrillation, currently in sinus rhythm. 3. Status post left carotid endartectomy 4. S/P bleeding and hematoma at the surgical site, resolved. 5. Myeloproliferative disorder with thrombocytosis. 6. History of moderate tricuspid regurgitation. Recommendation: 1. Continue current cardiac therapy. 2. F/u BMP (mild elevation of K). 3. tranfer to telemetry. 4. Increase ambulation.
[2018-09-18] MEDS: dilTIAZem HCL 30 MG TABLET (FP) PO SCH ×4 (00:08→17:14)
[2018-09-18] MEDS: ANAGRELIDE HCL 1 MG PO SCH ×3 (06:24→21:27)
[2018-09-18 07:15] LABS: HEMATOCRIT 23.8 % (35.4-49); HEMOGLOBIN 7.9 GM/dL (11.7-16.9); MCH 29.7 pg (25.7-33.7); MCHC 33.4 g/dl (32.0-35.9); MEAN CELL VOLUME 88.9 fl (80-96); MEAN PLT VOLUME 8.9 fl (7.5-11.1); PLATELET COUNT 684 K/MM3 (134-434); RBC 2.67 M/mm3 (4.00-5.60); RDW 17.7 % (11.9-15.9); WHITE BLOOD COUNT 12.4 K/mm3 (4.0-10.0)
[2018-09-18] MEDS: ALBUTEROL SO4 2.5/IPRATROPIUM 0.5 INH SOL 3 ML VIAL.NEB. NEB SCH ×3 (07:48→16:02)
[2018-09-18 09:01] LABS: ALK PHOS 53 U/L (45-117); ANION GAP 6 MMOL/L (8-16); BILIRUBIN,TOTAL 0.4 mg/dL (0.2-1); CALCIUM 8.9 mg/dL (8.5-10.1); CHLORIDE 102 mmol/L (98-107); CO2 32 mmol/L (21-32); CREATININE 0.5 mg/dL (0.55-1.3); GLUCOSE,RANDOM 74 mg/dL (74-106); MAGNESIUM 2.3 mg/dL (1.8-2.4); PHOSPHOROUS 3.9 mg/dL (2.5-4.9); POTASSIUM 5.2 mmol/L (3.5-5.1); SGPT/ALT 15 U/L (13-61); SODIUM 140 mmol/L (136-145)
[2018-09-18] MEDS: PANTOPRAZOLE 40 MG TABLET (FP) PO SCH (09:24)
[2018-09-18] MEDS: TAMSULOSIN HCL 0.4 MG CAP PO SCH (09:24)
[2018-09-18] MEDS: SOTALOL HCL 80 MG TABLET (FP) PO SCH ×2 (09:25→21:28)
[2018-09-18] MEDS: ASPIRIN COATED 81 MG TABLET.EC PO SCH (09:25)
[2018-09-18] MEDS: HYDROXYUREA 500 MG CAPSULE PO SCH ×2 (09:25→21:28)
[2018-09-18 13:14] LABS: BLOOD UREA NITROGEN 25 mg/dL (7-18); SGOT/AST 11 U/L (15-37)
--- NOTE | 2018-09-18 13:41 | PN ---
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 Good tolerance.Pt reports doing "great" with diet. No further f/u indicated.
--- NOTE | 2018-09-18 18:27 | PN ---
Progress Note (short form) - Note Progress Note: Patient seen and examined Minimal drainage from distal sutures Last Vital Signs Temp Pulse Resp BP Pulse Ox 98.5 F 76 18 133/54 L 100 09/18/18 17:41 09/18/18 17:41 09/18/18 17:41 09/18/18 17:41 09/18/18 08:40 HEENT: VIVIAN, EOM Intact Oropharynx: No thrush, No mucositis, mild facial Neck: s/P left CEA Cor: RSR,systolic murmur Lungs: Clear to P&A Abd: Soft, Normal bowel sounds, liver 7 cm below RCM Ext:No significant edema Skin: No rashes, Integument intact CBC, BMP 09/18/18 05:20 09/18/18 05:20 Current Medications Generic Name Dose Route Start Last Admin Trade Name Freq PRN Reason Stop Dose Admin Acetaminophen 650 mg 09/11/18 19:48 Tylenol Suppository - [place] Q6H PRN FEVER Albuterol/Ipratropium 1 amp 09/13/18 20:00 09/18/18 16:02 Duoneb - NEB 1 amp RQID [facility]BBY Administration Anagrelide HCl 1 mg 09/13/18 22:00 09/18/18 13:39 Agrylin PO 1 mg TID [facility] Administration Aspirin 81 mg 09/14/18 16:30 09/18/18 09:25 Ecotrin - PO 81 mg DAILY [facility] Administration Diltiazem HCl 10 mg 09/15/18 09:23 09/15/18 09:25 Cardizem Injection - IVPUSH 10 mg Q4H PRN Administration TACHYCARDIA Diltiazem HCl 30 mg 09/15/18 09:25 09/18/18 17:14 Cardizem - PO 30 mg Q6HPO [facility]Y Administration Hydroxyurea 1,000 mg 09/13/18 10:00 09/18/18 09:25 Hydrea - PO 1,000 mg BID ABBY Administration Pantoprazole Sodium 40 mg 09/15/18 10:00 09/18/18 09:24 Protonix - PO 40 mg DAILY ABBY Administration Phenol/Menthol 1 spray 09/14/18 12:14 09/14/18 18:23 Chloraseptic - MM 1 spray Q6H PRN Administration SORE THROAT Sotalol HCl 80 mg 09/14/18 10:00 09/18/18 09:25 Betapace - PO 80 mg BID [facility]BBY Administration Tamsulosin HCl 0.4 mg 09/15/18 08:30 09/18/18 09:24 Flomax - PO 0.4 mg DAILY@0830 ABBY Administration Impression: 73 y/o patient with MPD, afib, underwent left CEA Developed postoperative hematoma/bleeding --s/p reexploration and suturing Anagrelide and hydrea have been re-instuted On ASA Monitor CBC and titrate meds. Problem List - Problems (1) Carotid stenosis, left Code(s): I65.22 - OCCLUSION AND STENOSIS OF LEFT CAROTID ARTERY (2) HTN (hypertension) Code(s): I10 - ESSENTIAL (PRIMARY) HYPERTENSION Qualifiers: Hypertension type: essential hypertension Qualified Code(s): I10 - Essential (primary) hypertension (3) MDS (myelodysplastic syndrome) Code(s): D46.9 - MYELODYSPLASTIC SYNDROME, UNSPECIFIED (4) Anemia Code(s): D64.9 - ANEMIA, UNSPECIFIED Qualifiers:
[2018-09-18] MEDS ORDERED: PT OWN MED DRAWER 7, Y5N ONE (20:59)
[2018-09-19] MEDS: dilTIAZem HCL 30 MG TABLET (FP) PO SCH ×4 (05:03→17:07)
[2018-09-19] MEDS: ANAGRELIDE HCL 1 MG PO SCH ×2 (05:04→21:42)
[2018-09-19 06:44] LABS: BASO % 2.5 % (0-2.0); EOS % 5.2 % (0-4.5); HEMATOCRIT 23.2 % (35.4-49); HEMOGLOBIN 7.7 GM/dL (11.7-16.9); LYMPH % 11.7 % (8-40); MCH 29.6 pg (25.7-33.7); MCHC 33.2 g/dl (32.0-35.9); MEAN PLT VOLUME 8.7 fl (7.5-11.1); MONO % 2.6 % (3.8-10.2); PLATELET COUNT 460 K/MM3 (134-434); RBC 2.61 M/mm3 (4.00-5.60); RDW 17.8 % (11.9-15.9); WHITE BLOOD COUNT 11.7 K/mm3 (4.0-10.0)
[2018-09-19] MEDS ORDERED: PT OWN MED DRAWER 7, Y5N ONE (06:52)
[2018-09-19 07:15] LABS: ALK PHOS 55 U/L (45-117); ANION GAP 5 MMOL/L (8-16); BILIRUBIN,TOTAL 0.5 mg/dL (0.2-1); BLOOD UREA NITROGEN 21 mg/dL (7-18); CALCIUM 8.4 mg/dL (8.5-10.1); CHLORIDE 101 mmol/L (98-107); CO2 33 mmol/L (21-32); CREATININE 0.5 mg/dL (0.55-1.3); GLUCOSE,RANDOM 82 mg/dL (74-106); MAGNESIUM 2.2 mg/dL (1.8-2.4); POTASSIUM 4.9 mmol/L (3.5-5.1); SGOT/AST 13 U/L (15-37); SGPT/ALT 15 U/L (13-61); SODIUM 138 mmol/L (136-145); TOT PROT 5.1 g/dl (6.4-8.2)
[2018-09-19] MEDS ORDERED: ACETAMINOPHEN 650 MG SUPP.RECT PR PRN (08:28)
[2018-09-19] MEDS ORDERED: PHENOL 177 ML SPRAY BOTTLE MM PRN (08:28)
[2018-09-19] MEDS: TAMSULOSIN HCL 0.4 MG CAP PO SCH (08:44)
[2018-09-19] MEDS: SOTALOL HCL 80 MG TABLET (FP) PO SCH ×2 (10:11→21:41)
[2018-09-19] MEDS: HYDROXYUREA 500 MG CAPSULE PO SCH ×2 (10:11→21:40)
[2018-09-19] MEDS: PANTOPRAZOLE 40 MG TABLET (FP) PO SCH (10:11)
[2018-09-19] MEDS: ASPIRIN COATED 81 MG TABLET.EC PO SCH (10:11)
[2018-09-19] MEDS ORDERED: POLYETHYLENE GLYCOL 3350 119 GM BTL PO ONE (13:00)
[2018-09-19] MEDS ORDERED: ANAGRELIDE HCL 1 MG PO SCH (14:00)
--- NOTE | 2018-09-19 16:38 | PN ---
Progress Note (short form) - Note Progress Note: 73 yr old man AA gentleman with a hx of HTN, MPD, hx of paroxysmal Afib, hemachromatosis, left ventricular diastolic dysfunction, recurring anemia, thrombocytopenia and critical carotid artery stenosis, underwent left carotid end artectomy complicated by left neck hematoma , No shortness of breath, no chest pain or discomfort. Patient has been ambulating and remains in sinus rhythm. Active Medications Acetaminophen (Tylenol Suppository -) 650 mg [place] Q6H PRN PRN Reason: FEVER Anagrelide HCl (Agrylin) 1 mg PO BID [facility] Aspirin (Ecotrin -) 81 mg PO DAILY [facility] Last Admin: 09/19/18 10:11 Dose: 81 mg Diltiazem HCl (Cardizem -) 30 mg PO Q6HPO [facility] Last Admin: 09/19/18 11:33 Dose: 30 mg Hydroxyurea (Hydrea -) 1,000 mg PO BID [facility] Last Admin: 09/19/18 10:11 Dose: 1,000 mg Pantoprazole Sodium (Protonix -) 40 mg PO DAILY [facility] Last Admin: 09/19/18 10:11 Dose: 40 mg Phenol/Menthol (Chloraseptic -) 1 spray MM Q6H PRN PRN Reason: SORE THROAT Sotalol HCl (Betapace -) 80 mg PO BID [facility] Last Admin: 09/19/18 10:11 Dose: 80 mg Tamsulosin HCl (Flomax -) 0.4 mg PO DAILY@0830 [facility] Last Admin: 09/19/18 08:44 Dose: 0.4 mg Last Vital Signs Temp Pulse Resp BP Pulse Ox 97.8 F 73 20 124/53 L 96 09/19/18 14:48 09/19/18 14:48 09/19/18 14:48 09/19/18 14:48 09/19/18 09:00 Neck: No JVD, -ve HJR on the right neck, further decrease in left neck swelling , rt. carotid 2+. Heart: PMI in 5th intercostal space, no heaves or thrills, S1, S2 are normal. Grade I/ ejection systolic murmur in 2nd right intercostal space, no diastolic murmur or gallops heard. Lungs: Clear bilaterally. Abdomen: soft, nontender, no hepatomegaly or palpable masses. 2+ splenomegaly Ext: no calf tenderness or dependent edema, pulses are normal. Laboratory Results - last 24 hr 09/19/18 09/19/18 05:30 05:30 WBC 11.7 H RBC 2.61 L Hgb 7.7 L Hct 23.2 L MCV 89.0 MCH 29.6 MCHC 33.2 RDW 17.8 H Plt Count 460 H D MPV 8.7 Absolute Neuts (auto) 9.1 H Neutrophils % 78.0 Lymphocytes % 11.7 Monocytes % 2.6 L Eosinophils % 5.2 H D Basophils % 2.5 H Nucleated RBC % 0 Sodium 138 Potassium 4.9 Chloride 101 Carbon Dioxide 33 H Anion Gap 5 L BUN 21 H Creatinine 0.5 L Creat Clearance w eGFR > 60 Random Glucose 82 Calcium 8.4 L Magnesium 2.2 Total Bilirubin 0.5 AST 13 L ALT 15 Alkaline Phosphatase 55 Total Protein 5.1 L Albumin 3.0 L Impression: 1. Hypertension/HCVD, currently normotensive. 2. Paroxysmal atrial fibrillation, currently in sinus rhythm. 3. Status post left carotid endartectomy 4. S/P bleeding and hematoma at the surgical site, resolved. 5. Myeloproliferative disorder with thrombocytosis. 6. History of moderate tricuspid regurgitation. 7. Anemia. Recommendation: 1. Continue current cardiac therapy. 2. F/u CBC. 3. Increase ambulation. Bogdan Childs M.D., F.A.C.C.
--- NOTE | 2018-09-19 18:37 | PN ---
Progress Note (short form) - Note Progress Note: Patient seen and examined Feels improved Ambulating in [place] and good appetite Somewhat constipated Last Vital Signs Temp Pulse Resp BP Pulse Ox 97.8 F 71 20 139/75 96 09/19/18 17:58 09/19/18 17:58 09/19/18 17:58 09/19/18 17:58 09/19/18 09:00 HEENT: VIVIAN, EOM Intact Oropharynx: No thrush, No mucositis Neck: no bleeding from left neck with some crusting distal staple area Cor: RSR, No murmurs, No gallops Lungs: Clear to P&A Abd: Soft, Normal bowel sounds, liver 6 cm Ext:No significant edema Skin: No rashes, Integument intact CBC, BMP 09/19/18 05:30 09/19/18 05:30 Current Medications Generic Name Dose Route Start Last Admin Trade Name Freq PRN Reason Stop Dose Admin Acetaminophen 650 mg 09/19/18 08:28 Tylenol Suppository - [place] Q6H PRN FEVER Anagrelide HCl 1 mg 09/19/18 22:00 Agrylin PO BID ABBY Aspirin 81 mg 09/19/18 10:00 09/19/18 10:11 Ecotrin - PO 81 mg DAILY ABBY Administration Diltiazem HCl 30 mg 09/19/18 12:00 09/19/18 17:07 Cardizem - PO 30 mg Q6HPO ABBY Administration Hydroxyurea 1,000 mg 09/19/18 10:00 09/19/18 10:11 Hydrea - PO 1,000 mg BID ABBY Administration Pantoprazole Sodium 40 mg 09/19/18 10:00 09/19/18 10:11 Protonix - PO 40 mg DAILY ABBY Administration Phenol/Menthol 1 spray 09/19/18 08:28 Chloraseptic - MM Q6H PRN SORE THROAT Sotalol HCl 80 mg 09/19/18 10:00 09/19/18 10:11 Betapace - PO 80 mg BID ABBY Administration Tamsulosin HCl 0.4 mg 09/19/18 08:30 09/19/18 08:44 Flomax - PO 0.4 mg DAILY@0830 ABBY Administration Impression: S/P LCEA with hematoma , evacuation, re bleed and re- exploration MDS/MPD On ASA and anagrelide Anemia - hct stable at 23% Plan current dose of hydrea and anagrelide may need adjustment on 09/20. May need transfusion prior to discharge. Problem List - Problems (1) Carotid stenosis, left Code(s): I65.22 - OCCLUSION AND STENOSIS OF LEFT CAROTID ARTERY (2) HTN (hypertension) Code(s): I10 - ESSENTIAL (PRIMARY) HYPERTENSION Qualifiers: Hypertension type: essential hypertension Qualified Code(s): I10 - Essential (primary) hypertension (3) MDS (myelodysplastic syndrome) Code(s): D46.9 - MYELODYSPLASTIC SYNDROME, UNSPECIFIED (4) Anemia Code(s): D64.9 - ANEMIA, UNSPECIFIED Qualifiers:
[2018-09-20] MEDS: dilTIAZem HCL 30 MG TABLET (FP) PO SCH ×4 (00:02→17:59)
[2018-09-20 06:45] LABS: BASO % 3.7 % (0-2.0); EOS % 5.1 % (0-4.5); HEMATOCRIT 23.6 % (35.4-49); LYMPH % 16.9 % (8-40); MCH 30.1 pg (25.7-33.7); MCHC 33.7 g/dl (32.0-35.9); MEAN CELL VOLUME 89.3 fl (80-96); MEAN PLT VOLUME 9.1 fl (7.5-11.1); MONO % 2.4 % (3.8-10.2); NEUT % 71.9 % (42.8-82.8); PLATELET COUNT 264 K/MM3 (134-434); RBC 2.65 M/mm3 (4.00-5.60); RDW 18.2 % (11.9-15.9)
[2018-09-20 07:08] LABS: ALBUMIN 3.3 g/dl (3.4-5.0); ALK PHOS 57 U/L (45-117); ANION GAP 4 MMOL/L (8-16); BILIRUBIN,TOTAL 0.6 mg/dL (0.2-1); BLOOD UREA NITROGEN 24 mg/dL (7-18); CALCIUM 8.5 mg/dL (8.5-10.1); CHLORIDE 102 mmol/L (98-107); CO2 33 mmol/L (21-32); CREATININE 0.5 mg/dL (0.55-1.3); GLUCOSE,RANDOM 79 mg/dL (74-106); POTASSIUM 4.9 mmol/L (3.5-5.1); SGOT/AST 17 U/L (15-37); SGPT/ALT 17 U/L (13-61); SODIUM 138 mmol/L (136-145); TOT PROT 5.4 g/dl (6.4-8.2); URIC ACID 7.7 mg/dL (2.6-7.2)
[2018-09-20] MEDS: PANTOPRAZOLE 40 MG TABLET (FP) PO SCH (09:23)
[2018-09-20] MEDS: ANAGRELIDE HCL 1 MG PO SCH ×2 (09:24→21:46)
[2018-09-20] MEDS: HYDROXYUREA 500 MG CAPSULE PO SCH (09:24)
[2018-09-20] MEDS: TAMSULOSIN HCL 0.4 MG CAP PO SCH (09:24)
[2018-09-20] MEDS: ASPIRIN COATED 81 MG TABLET.EC PO SCH (09:24)
[2018-09-20] MEDS: SOTALOL HCL 80 MG TABLET (FP) PO SCH ×2 (09:24→21:47)
--- NOTE | 2018-09-20 09:28 | PN ---
Progress Note (short form) - Note Progress Note: Vascular Surgery: Pt without complaints of CP/SOB. OOB and ambulating. Voiding without difficulty. Tolerating a diet. Vital Signs Period Temp Pulse Resp BP Sys/Paredes Pulse Ox Last 24 Hr 97 F-98.5 F 71-76 20-20 124-155/53-82 95-95 GEN: A&0x3 Neck: Mild swelling under the suture line. No drainage noted. Removed several she and placed steri-strip. Neck remains soft. CBC, BMP 09/20/18 05:30 09/20/18 05:30 A/P: s/p Left CEA with reoperation for evacuation of hematoma Continue oral HTN meds as per cardiology T&S ordered, transfuse as per hematology, continue hydrea and agrelide. Plts now 264 D/w Dr. Holloway
--- NOTE | 2018-09-20 10:59 | PN ---
Progress Note (short form) - Note Progress Note: 73 yr old man AA gentleman with a hx of HTN, MPD, hx of paroxysmal Afib, hemachromatosis, left ventricular diastolic dysfunction, recurring anemia, thrombocytopenia and critical carotid artery stenosis, underwent left carotid end artectomy complicated by left neck hematoma , No shortness of breath, no chest pain or discomfort. Patient has been ambulating and remains in sinus rhythm. Fang being remove. A Active Medications Generic Name Dose Route Start Last Admin Trade Name Freq PRN Reason Stop Dose Admin Acetaminophen 650 mg 09/19/18 08:28 Tylenol Suppository - [place] Q6H PRN FEVER Anagrelide HCl 1 mg 09/19/18 22:00 09/20/18 09:24 Agrylin PO 1 mg BID ABBY Administration Aspirin 81 mg 09/19/18 10:00 09/20/18 09:24 Ecotrin - PO 81 mg DAILY ABBY Administration Diltiazem HCl 30 mg 09/19/18 12:00 09/20/18 05:44 Cardizem - PO 30 mg Q6HPO ABBY Administration Pantoprazole Sodium 40 mg 09/19/18 10:00 09/20/18 09:23 Protonix - PO 40 mg DAILY ABBY Administration Phenol/Menthol 1 spray 09/19/18 08:28 Chloraseptic - MM Q6H PRN SORE THROAT Sotalol HCl 80 mg 09/19/18 10:00 09/20/18 09:24 Betapace - PO 80 mg BID ABBY Administration Tamsulosin HCl 0.4 mg 09/19/18 08:30 09/20/18 09:24 Flomax - PO 0.4 mg DAILY@0830 ABBY Administration Last Vital Signs Temp Pulse Resp BP Pulse Ox 97 F L 75 20 129/63 95 09/20/18 08:47 09/20/18 08:47 09/20/18 08:47 09/20/18 08:47 09/20/18 09:10 Neck: No JVD, -ve HJR on the right neck, further decrease in left neck swelling , rt. carotid 2+. Heart: PMI in 5th intercostal space, no heaves or thrills, S1, S2 are normal. Grade I/ ejection systolic murmur in 2nd right intercostal space, no diastolic murmur or gallops heard. Lungs: Clear bilaterally. Abdomen: soft, nontender, no hepatomegaly or palpable masses. 2+ splenomegaly Ext: no calf tenderness or dependent edema, pulses are normal. CBC, BMP 09/20/18 05:30 09/20/18 05:30 Impression: 1. Hypertension/HCVD, currently normotensive. 2. Paroxysmal atrial fibrillation, currently in sinus rhythm. 3. Status post left carotid endartectomy 4. S/P bleeding and hematoma at the surgical site, resolved. 5. Myeloproliferative disorder with thrombocytosis. 6. History of moderate tricuspid regurgitation. 7. Anemia. Recommendation: 1. Continue current cardiac therapy. 2. F/u CBC. 3. Increase ambulation. Bogdan Childs M.D., F.A.C.C.
[2018-09-20] MEDS ORDERED: PT OWN MED DRAWER 7, Y5N ONE (21:13)
--- NOTE | 2018-09-20 23:21 | PN ---
Progress Note (short form) - Note Progress Note: Patient seen and examined Doing well clinically AFVSS Cor: RSR, No murmurs, No gallops Lungs: Clear to P&A Abd: Soft, Normal bowel sounds, No organomegaly Ext:No significant edema Labs/Meds reviewed A/P 73 y/o patient with MPD, afib, underwent left CEA Developed postoperative hematoma/bleeding --s/p reexploration and suturing Resumed anagrelide and hydrea for thrombocytosis Resumed ASA Platelet count trendig down---stop hydrea. decrease anagrelide monitor CBC
[2018-09-21] MEDS: dilTIAZem HCL 30 MG TABLET (FP) PO SCH ×5 (01:00→23:31)
[2018-09-21 07:36] LABS: BASO % 2.2 % (0-2.0); EOS % 3.8 % (0-4.5); HEMATOCRIT 24.3 % (35.4-49); LYMPH % 14.8 % (8-40); MCH 29.7 pg (25.7-33.7); MCHC 33.1 g/dl (32.0-35.9); MEAN CELL VOLUME 89.8 fl (80-96); MEAN PLT VOLUME 9.5 fl (7.5-11.1); MONO % 3.2 % (3.8-10.2); PLATELET COUNT 169 K/MM3 (134-434); WHITE BLOOD COUNT 9.9 K/mm3 (4.0-10.0)
[2018-09-21] MEDS ORDERED: PT OWN MED DRAWER 7, Y5N ONE (08:55)
[2018-09-21] MEDS: TAMSULOSIN HCL 0.4 MG CAP PO SCH (09:01)
[2018-09-21] MEDS: ASPIRIN COATED 81 MG TABLET.EC PO SCH (09:01)
[2018-09-21] MEDS: SOTALOL HCL 80 MG TABLET (FP) PO SCH ×2 (09:01→21:36)
[2018-09-21] MEDS: PANTOPRAZOLE 40 MG TABLET (FP) PO SCH (09:01)
[2018-09-21] MEDS ORDERED: ANAGRELIDE HCL 0.5 MG CAPSULE PO SCH (10:00)
--- NOTE | 2018-09-21 12:50 | PN ---
Progress Note (short form) - Note Progress Note: POD #11 Resting comfortably without complaint. sitting on edge of bed eating lunch. He continues to gett OOB and ambulate hallways unassisted. Voiding spontaneously. Denies n/v/f/c, weak or dizzy. Denies CP, palpitations, SOB or ALEXANDRA. Last Vital Signs Temp Pulse Resp BP Pulse Ox 97.4 F L 72 20 104/74 96 09/21/18 10:00 09/21/18 10:00 09/21/18 10:00 09/21/18 10:00 09/21/18 09:00 TRENDS 09/17/18 09/18/18 09/19/18 09/20/18 09/21/18 05:30 05:20 05:30 05:30 05:45 Hgb 7.9 L 7.7 L 8.0 Hct 23.8 L 23.2 L 23.6 24.3 Plt Count 870 H D 684 H D 460 H D 264 169 PE GEN: A&0x3 Neck: Several she removed 2 and intermittent steri strips placed. Mild swelling under the staple line. No drainage. Neck remains soft. Neuro: GMNVI (puffs out cheeks, shrugs shoulders, negative lingual deviation) Problem List - Problems (1) Carotid stenosis, left Assessment/Plan: POD #11 s/p Left CEA, takeback POD 1 twice for wound exploration and hematoma evacuation, MODESTA drain placement - Cont HTN meds as per Cardio - Per Hematology: stop Hydrea and decrease Anagrelide due to dropping PLTS - Trend HH ...transfuse PRBC prn - Trend CBC - ASA 81mg daily - Cont OOB and ambulate - Above plan discussed with Dr. Holloway and agrees Code(s): I65.22 - OCCLUSION AND STENOSIS OF LEFT CAROTID ARTERY
--- NOTE | 2018-09-21 13:30 | PN ---
Progress Note (short form) - Note Progress Note: 73 yr old man AA gentleman with a hx of HTN, MPD, hx of paroxysmal Afib, hemachromatosis, left ventricular diastolic dysfunction, recurring anemia, thrombocytopenia and critical carotid artery stenosis, underwent left carotid end artectomy complicated by left neck hematoma , No shortness of breath, no chest pain or discomfort. Patient has been ambulating and remains in sinus rhythm. Fang being remove. Active Medications Acetaminophen (Tylenol Suppository -) 650 mg [place] Q6H PRN PRN Reason: FEVER Anagrelide HCl (Agrylin) 1 mg PO BID [facility] Aspirin (Ecotrin -) 81 mg PO DAILY [facility] Last Admin: 09/24/18 09:26 Dose: 81 mg Diltiazem HCl (Cardizem -) 30 mg PO Q6HPO [facility] Last Admin: 09/24/18 11:31 Dose: 30 mg Pantoprazole Sodium (Protonix -) 40 mg PO DAILY [facility] Last Admin: 09/24/18 09:26 Dose: 40 mg Phenol/Menthol (Chloraseptic -) 1 spray MM Q6H PRN PRN Reason: SORE THROAT Sotalol HCl (Betapace -) 80 mg PO BID [facility] Last Admin: 09/24/18 09:26 Dose: 80 mg Tamsulosin HCl (Flomax -) 0.4 mg PO DAILY@0830 [facility] Last Admin: 09/24/18 09:26 Dose: 0.4 mg Last Vital Signs Temp Pulse Resp BP Pulse Ox 97.4 F 72 20 104/74 96 09/21/18 10:00 09/21/18 10:00 09/21/18 10:00 09/21/18 10:00 09/21/18 09:00 Neck: No JVD, -ve HJR on the right neck, further decrease in left neck swelling , rt. carotid 2+. Heart: PMI in 5th intercostal space, no heaves or thrills, S1, S2 are normal. Grade I/ ejection systolic murmur in 2nd right intercostal space, no diastolic murmur or gallops heard. Lungs: Clear bilaterally. Abdomen: soft, nontender, no hepatomegaly or palpable masses. 2+ splenomegaly Ext: no calf tenderness or dependent edema, pulses are normal. CBC, BMP CBC 09/21/18 5:45 WBC: 9.9, Hgb 8.0, Hct 24.3, Plt 169 09/20/18 05:30 Impression: 1. Hypertension/HCVD, currently normotensive. 2. Paroxysmal atrial fibrillation, currently in sinus rhythm. 3. Status post left carotid endartectomy 4. S/P bleeding and hematoma at the surgical site, resolved. 5. Myeloproliferative disorder with thrombocytosis. 6. History of moderate tricuspid regurgitation. 7. Anemia. Recommendation: 1. Continue current cardiac therapy. 2. F/u CBC. 3. Increase ambulation. Bogdan Childs M.D., F.A.C.C.
--- NOTE | 2018-09-21 13:57 | PN ---
Physical Exam: SUBJECTIVE: Patient seen and examined OBJECTIVE: Vital Signs Period Temp Pulse Resp BP Sys/Pareeds Pulse Ox Last 24 Hr 97.4 F-98.6 F 68-81 18-20 104-147/54-74 96-99 GENERAL: The patient is awake, alert, and fully oriented, in no acute distress. HEAD: Normal with no signs of trauma. EYES: PERRL, extraocular movements intact, sclera anicteric, conjunctiva clear. No ptosis. ENT: Ears normal, nares patent, oropharynx clear without exudates, moist mucous membranes. NECK: Trachea midline, full range of motion, supple. LUNGS: Breath sounds equal, clear to auscultation bilaterally, no wheezes, no crackles, no accessory muscle use. HEART: Regular rate and rhythm, S1, S2 without murmur, rub or gallop. ABDOMEN: Soft, nontender, nondistended, normoactive bowel sounds, no guarding, no rebound, no hepatosplenomegaly, no masses. EXTREMITIES: 2+ pulses, warm, well-perfused, no edema. NEUROLOGICAL: Cranial nerves II through XII grossly intact. Normal speech, gait not observed. PSYCH: Normal mood, normal affect. SKIN: Warm, dry, normal turgor, no rashes or lesions noted Laboratory Results - last 24 hr 09/21/18 05:45 WBC 9.9 RBC 2.70 L Hgb 8.0 L Hct 24.3 L MCV 89.8 MCH 29.7 MCHC 33.1 RDW 18.0 H Plt Count 169 D MPV 9.5 Absolute Neuts (auto) 7.5 Neutrophils % 76.0 Lymphocytes % 14.8 Monocytes % 3.2 L Eosinophils % 3.8 Basophils % 2.2 H Nucleated RBC % 0 Platelet Comment Rare giant plts Active Medications Generic Name Dose Route Start Last Admin Trade Name Freq PRN Reason Stop Dose Admin Acetaminophen 650 mg 09/19/18 08:28 Tylenol Suppository - [place] Q6H PRN FEVER Anagrelide HCl 0.5 mg 09/21/18 10:00 09/21/18 09:02 Agrylin - PO 0.5 mg BID ABBY Administration Aspirin 81 mg 09/19/18 10:00 09/21/18 09:01 Ecotrin - PO 81 mg DAILY ABBY Administration Diltiazem HCl 30 mg 09/19/18 12:00 09/21/18 11:54 Cardizem - PO 30 mg Q6HPO ABBY Administration Pantoprazole Sodium 40 mg 09/19/18 10:00 09/21/18 09:01 Protonix - PO 40 mg DAILY ABBY Administration Phenol/Menthol 1 spray 09/19/18 08:28 Chloraseptic - MM Q6H PRN SORE THROAT Sotalol HCl 80 mg 09/19/18 10:00 09/21/18 09:01 Betapace - PO 80 mg BID ABBY Administration Tamsulosin HCl 0.4 mg 09/19/18 08:30 09/21/18 09:01 Flomax - PO 0.4 mg DAILY@0830 ABBY Administration ASSESSMENT/PLAN: 73 year old man with h/o MPD, HTN, AFIB, COPD S/p left carotid endarterectomy with /p reexploration and suturing due to expanding hematoma. MPD: hold hydroxyuruea anagrelide until uptrend in platelets ; monitor cbc will follow Visit type - Emergency Visit Emergency Visit: Yes ED Registration Date: 09/10/18 Care time: The patient presented to the Emergency Department on the above date and was hospitalized for further evaluation of their emergent condition. - New Patient This patient is new to me today: No - Critical Care Critical Care patient: No
--- NOTE | 2018-09-21 18:23 | PN ---
Teaching Attending Note Name of Resident: Tasha Triplett ATTENDING PHYSICIAN STATEMENT I saw and evaluated the patient. I reviewed the resident's note and discussed the case with the resident. I agree with the resident's findings and plan as documented. SUBJECTIVE: Patient seen and examined Continuing to improve clinically Last Vital Signs Temp Pulse Resp BP Pulse Ox 98 F 76 20 96/45 L 96 09/21/18 14:00 09/21/18 14:00 09/21/18 14:00 09/21/18 14:00 09/21/18 09:00 HEENT: VIVIAN, EOM Intact Neck:she Cor: RSR, No murmurs, No gallops Lungs: Clear to P&A Abd: Soft, Normal bowel sounds, liver 7 cm Ext:No significant edema Skin: No rashes, Integument intact CBC, BMP 09/21/18 05:45 09/20/18 05:30 Current Medications Generic Name Dose Route Start Last Admin Trade Name Freq PRN Reason Stop Dose Admin Acetaminophen 650 mg 09/19/18 08:28 Tylenol Suppository - [place] Q6H PRN FEVER Anagrelide HCl 0.5 mg 09/21/18 10:00 09/21/18 09:02 Agrylin - PO 0.5 mg BID ABBY Administration Aspirin 81 mg 09/19/18 10:00 09/21/18 09:01 Ecotrin - PO 81 mg DAILY ABBY Administration Diltiazem HCl 30 mg 09/19/18 12:00 09/21/18 17:13 Cardizem - PO 30 mg Q6HPO ABBY Administration Pantoprazole Sodium 40 mg 09/19/18 10:00 09/21/18 09:01 Protonix - PO 40 mg DAILY ABBY Administration Phenol/Menthol 1 spray 09/19/18 08:28 Chloraseptic - MM Q6H PRN SORE THROAT Sotalol HCl 80 mg 09/19/18 10:00 09/21/18 09:01 Betapace - PO 80 mg BID ABBY Administration Tamsulosin HCl 0.4 mg 09/19/18 08:30 09/21/18 09:01 Flomax - PO 0.4 mg DAILY@0830 ABBY Administration OBJECTIVE: MPD/MDS anemia chemotherapy S/P left CEA bleeding s/p hematoma evacuation and re bleed L- Plan discontinue agrylin and hydrea for now. re introduce when counts improved,CEA ASSESSMENT AND PLAN: Problem List - Problems (1) Carotid stenosis, left Code(s): I65.22 - OCCLUSION AND STENOSIS OF LEFT CAROTID ARTERY (2) HTN (hypertension) Code(s): I10 - ESSENTIAL (PRIMARY) HYPERTENSION Qualifiers: Hypertension type: essential hypertension Qualified Code(s): I10 - Essential (primary) hypertension (3) MDS (myelodysplastic syndrome) Code(s): D46.9 - MYELODYSPLASTIC SYNDROME, UNSPECIFIED (4) Anemia Code(s): D64.9 - ANEMIA, UNSPECIFIED Qualifiers:
[2018-09-21 23:59] VITALS: BMI 20.8
[2018-09-22] MEDS: dilTIAZem HCL 30 MG TABLET (FP) PO SCH ×3 (06:17→17:46)
[2018-09-22 07:25] LABS: BASO % 3.1 % (0-2.0); EOS % 3.4 % (0-4.5); HEMATOCRIT 24.6 % (35.4-49); HEMOGLOBIN 8.4 GM/dL (11.7-16.9); LYMPH % 23.3 % (8-40); MCH 30.8 pg (25.7-33.7); MCHC 34.3 g/dl (32.0-35.9); MEAN CELL VOLUME 89.6 fl (80-96); MEAN PLT VOLUME 10.5 fl (7.5-11.1); MONO % 3.6 % (3.8-10.2); NEUT % 66.6 % (42.8-82.8); PLATELET COUNT 173 K/MM3 (134-434); RBC 2.75 M/mm3 (4.00-5.60); RDW 17.8 % (11.9-15.9); WHITE BLOOD COUNT 8.7 K/mm3 (4.0-10.0)
[2018-09-22 07:55] LABS: INR 1.23 (0.83-1.09); PROTHROMBIN TIME (PATIENT) 14.5 SEC (9.7-13.0)
[2018-09-22 07:59] LABS: ACTIVATED PTT 30.7 SECONDS (25.2-36.5)
[2018-09-22] MEDS: PANTOPRAZOLE 40 MG TABLET (FP) PO SCH (09:22)
[2018-09-22] MEDS: TAMSULOSIN HCL 0.4 MG CAP PO SCH (09:22)
[2018-09-22] MEDS: ASPIRIN COATED 81 MG TABLET.EC PO SCH (09:22)
[2018-09-22] MEDS ORDERED: PT OWN MED DRAWER 7, Y5N ONE ×2 (09:23→20:46)
[2018-09-22] MEDS: SOTALOL HCL 80 MG TABLET (FP) PO SCH ×2 (09:24→21:16)
--- NOTE | 2018-09-22 13:01 | PN ---
Progress Note (short form) - Note Progress Note: VSS Neck swelling much improved. Fang out OK for discharge as per Medicine. F/U 2 weeks in my office Problem List - Problems (1) Carotid stenosis, left Code(s): I65.22 - OCCLUSION AND STENOSIS OF LEFT CAROTID ARTERY
[2018-09-22 13:44] LABS: PLATELET ESTIMATE ADEQUATE
--- NOTE | 2018-09-22 15:24 | PN ---
Progress Note (short form) - Note Progress Note: Patient seen in follow up. No new complaints. No significant events overnight. Inpatient Meds reviewed. Current Medications Generic Name Dose Route Start Last Admin Trade Name Sheila PRN Reason Stop Dose Admin Acetaminophen 650 mg 09/19/18 08:28 Tylenol Suppository - [place] Q6H PRN FEVER Aspirin 81 mg 09/19/18 10:00 09/22/18 09:22 Ecotrin - PO 81 mg DAILY ABBY Administration Diltiazem HCl 30 mg 09/19/18 12:00 09/22/18 13:09 Cardizem - PO 30 mg Q6HPO ABBY Administration Pantoprazole Sodium 40 mg 09/19/18 10:00 09/22/18 09:22 Protonix - PO 40 mg DAILY ABBY Administration Phenol/Menthol 1 spray 09/19/18 08:28 Chloraseptic - MM Q6H PRN SORE THROAT Sotalol HCl 80 mg 09/19/18 10:00 09/22/18 09:24 Betapace - PO 80 mg BID ABBY Administration Tamsulosin HCl 0.4 mg 09/19/18 08:30 09/22/18 09:22 Flomax - PO 0.4 mg DAILY@0830 ABBY Administration On Examination: Last Vital Signs Temp Pulse Resp BP Pulse Ox 98.3 F 66 18 111/52 L 100 09/22/18 10:00 09/22/18 10:00 09/22/18 10:00 09/22/18 10:00 09/22/18 10:00 General: In no acute distress, lying comfortably in bed. Extremities: No pallor or icterus. No pedal edema. No palpable lymphadenopathy. Chest: breathing comfortably Abdomen: Non-distended, non-tender, no palpable organomegaly. Neuro: Alert, oriented, non-focal. Labs: CBC, BMP 09/22/18 07:00 09/20/18 05:30 Assessment. MDS/MPN, with prior marked thrombocytosis, now with platelets trending down. HU and and Agrylin held. S/p CEA complicated by hematoma/hemorrhage - now with no evidence bleeding. Will need close monitoring of platelets, with appropriate reintroduction of anti -platelet agents and dose titration.
[2018-09-23] MEDS: dilTIAZem HCL 30 MG TABLET (FP) PO SCH ×4 (00:32→17:41)
[2018-09-23] MEDS: ASPIRIN COATED 81 MG TABLET.EC PO SCH (09:29)
[2018-09-23] MEDS: TAMSULOSIN HCL 0.4 MG CAP PO SCH (09:29)
[2018-09-23] MEDS: SOTALOL HCL 80 MG TABLET (FP) PO SCH ×2 (09:29→21:31)
[2018-09-23] MEDS: PANTOPRAZOLE 40 MG TABLET (FP) PO SCH (09:29)
[2018-09-23 12:14] LABS: HEMATOCRIT 25.6 % (35.4-49); HEMOGLOBIN 8.5 GM/dL (11.7-16.9); MCH 29.9 pg (25.7-33.7); MCHC 33.1 g/dl (32.0-35.9); MEAN CELL VOLUME 90.2 fl (80-96); MEAN PLT VOLUME 11.3 fl (7.5-11.1); PLATELET COUNT 290 K/MM3 (134-434); RBC 2.84 M/mm3 (4.00-5.60); RDW 18.4 % (11.9-15.9); RETICULOCYTES 0.96 % (0.5-1.5); WHITE BLOOD COUNT 15.3 K/mm3 (4.0-10.0)
[2018-09-23 12:15] LABS: ANION GAP 5 MMOL/L (8-16); BLOOD UREA NITROGEN 28 mg/dL (7-18); CALCIUM 8.6 mg/dL (8.5-10.1); CHLORIDE 103 mmol/L (98-107); CO2 32 mmol/L (21-32); CREATININE 0.5 mg/dL (0.55-1.3); GLUCOSE,RANDOM 85 mg/dL (74-106); POTASSIUM 5.1 mmol/L (3.5-5.1); SODIUM 139 mmol/L (136-145)
--- NOTE | 2018-09-23 12:23 | PN ---
Progress Note (short form) - Note Progress Note: Patient seen in follow up. No new complaints. No significant events overnight. Inpatient Meds reviewed. Current Medications Generic Name Dose Route Start Last Admin Trade Name Sheila PRN Reason Stop Dose Admin Acetaminophen 650 mg 09/19/18 08:28 Tylenol Suppository - [place] Q6H PRN FEVER Aspirin 81 mg 09/19/18 10:00 09/23/18 09:29 Ecotrin - PO 81 mg DAILY ABBY Administration Diltiazem HCl 30 mg 09/19/18 12:00 09/23/18 06:13 Cardizem - PO 30 mg Q6HPO ABBY Administration Pantoprazole Sodium 40 mg 09/19/18 10:00 09/23/18 09:29 Protonix - PO 40 mg DAILY ABBY Administration Phenol/Menthol 1 spray 09/19/18 08:28 Chloraseptic - MM Q6H PRN SORE THROAT Sotalol HCl 80 mg 09/19/18 10:00 09/23/18 09:29 Betapace - PO 80 mg BID ABBY Administration Tamsulosin HCl 0.4 mg 09/19/18 08:30 09/23/18 09:29 Flomax - PO 0.4 mg DAILY@0830 ABBY Administration On Examination: Last Vital Signs Temp Pulse Resp BP Pulse Ox 97.8 F 63 15 122/56 L 98 09/23/18 08:27 09/23/18 08:27 09/23/18 08:29 09/23/18 08:27 09/23/18 08:29 General: In no acute distress, lying comfortably in bed. Extremities: No pallor or icterus. No pedal edema. No palpable lymphadenopathy. Chest: breathing comfortably Abdomen: Non-distended, non-tender, no palpable organomegaly. Neuro: Alert, oriented, non-focal. Labs: CBC, BMP 09/23/18 11:20 09/23/18 11:20 Assessment. MDS/MPN, with prior marked thrombocytosis, now with platelets trending down. HU and and Agrylin held. S/p CEA complicated by hematoma/hemorrhage - now with no evidence bleeding. Will need close monitoring of platelets, (platelets pending today) with appropriate reintroduction of anti-platelet agents and dose titration. Patient was onlyn on Agrylin 2mgs daily at home.
[2018-09-23] MEDS: ANAGRELIDE HCL 0.5 MG CAPSULE PO SCH (22:11)
[2018-09-24] MEDS: dilTIAZem HCL 30 MG TABLET (FP) PO SCH ×5 (00:56→23:21)
[2018-09-24] MEDS ORDERED: PT OWN MED DRAWER 7, Y5N ONE (09:17)
[2018-09-24] MEDS: ASPIRIN COATED 81 MG TABLET.EC PO SCH (09:26)
[2018-09-24] MEDS: SOTALOL HCL 80 MG TABLET (FP) PO SCH ×2 (09:26→23:21)
[2018-09-24] MEDS: TAMSULOSIN HCL 0.4 MG CAP PO SCH (09:26)
[2018-09-24] MEDS: PANTOPRAZOLE 40 MG TABLET (FP) PO SCH (09:26)
[2018-09-24] MEDS: ANAGRELIDE HCL 0.5 MG CAPSULE PO SCH (09:27)
--- NOTE | 2018-09-24 11:32 | PN ---
Progress Note (short form) - Note Progress Note: Patient seen and examined Doing well clinically Last Vital Signs Temp Pulse Resp BP Pulse Ox 97.8 F 66 16 121/51 L 98 09/24/18 08:41 09/24/18 08:41 09/24/18 08:41 09/24/18 08:41 09/24/18 08:41 Cor: RSR, No murmurs, No gallops Lungs: Clear to P&A Abd: Soft, Normal bowel sounds, No organomegaly Ext:No significant edema Abnormal Lab Results 09/23/18 09/23/18 11:20 11:20 WBC 15.3 H RBC 2.84 L Hgb 8.5 L Hct 25.6 L RDW 18.4 H MPV 11.3 H Anion Gap 5 L BUN 28 H Creatinine 0.5 L Active Medications Generic Name Dose Route Start Last Admin Trade Name Freq PRN Reason Stop Dose Admin Acetaminophen 650 mg 09/19/18 08:28 Tylenol Suppository - [place] Q6H PRN FEVER Anagrelide HCl 1 mg 09/24/18 22:00 Agrylin PO BID BABY Aspirin 81 mg 09/19/18 10:00 09/24/18 09:26 Ecotrin - PO 81 mg DAILY ABBY Administration Diltiazem HCl 30 mg 09/19/18 12:00 09/24/18 06:28 Cardizem - PO 30 mg Q6HPO ABBY Administration Pantoprazole Sodium 40 mg 09/19/18 10:00 09/24/18 09:26 Protonix - PO 40 mg DAILY ABBY Administration Phenol/Menthol 1 spray 09/19/18 08:28 Chloraseptic - MM Q6H PRN SORE THROAT Sotalol HCl 80 mg 09/19/18 10:00 09/24/18 09:26 Betapace - PO 80 mg BID ABBY Administration Tamsulosin HCl 0.4 mg 09/19/18 08:30 09/24/18 09:26 Flomax - PO 0.4 mg DAILY@0830 ABBY Administration A/P 73 y/o patient with MPD, afib, underwent left CEA Developed postoperative hematoma/bleeding --s/p reexploration and suturing Resumed anagrelide. on aspirin 81mg daily monitor cbc d/c planning
--- NOTE | 2018-09-24 12:00 | PN ---
"Progress Note (short form) - Note Progress Note: POD #14 Resting comfortably without complaint. He continues to get OOB and ambulate hallways unassisted. Voiding spontaneously. Denies n/v/f/c, weak or dizzy. Denies CP, palpitations, SOB or ALEXANDRA. Last Vital Signs Temp Pulse Resp BP Pulse Ox 97.8 F 66 16 121/51 L 98 18/19 08:41 09/24/18 08:41 09/24/18 08:41 09/24/18 08:41 09/24/18 08:41 BMP 09/23/18 11:20 PLT TREND 02//19 //09/22/07/23/19 05:30 05:45 07:00 11:20 Plt Count 264 169 173 290 PE GEN: A&0x3 Neck: steri strips intact. Mild swelling under the staple line. No drainage. Neck remains soft. Neuro: GMNVI (puffs out cheeks, shrugs shoulders, negative lingual deviation) Problem List - Problems (1) Carotid stenosis, left Assessment/Plan: POD #14 s/p Left CEA, takeback POD 1 twice for wound exploration and hematoma evacuation, MODESTA drain placement. Myeloproliferative disorder with thrombocytosis - f/u Cardio | Cont HTN meds as per Cardio - ID following due to PLATELETS - ASA 81mg daily - Cont OOB and ambulate - DC planning 2 to home - Above plan discussed with Dr. Holloway and agrees Code(s): I65.22 - OCCLUSION AND STENOSIS OF LEFT CAROTID ARTERY"
[2018-09-24] MEDS: ANAGRELIDE HCL 1 MG PO SCH (23:21)
[2018-09-25 06:34] LABS: BASO % 0.7 % (0-2.0); EOS % 2.5 % (0-4.5); HEMATOCRIT 23.2 % (35.4-49); HEMOGLOBIN 7.6 GM/dL (11.7-16.9); MCH 29.6 pg (25.7-33.7); MCHC 32.9 g/dl (32.0-35.9); MEAN CELL VOLUME 90.2 fl (80-96); MONO % 2.9 % (3.8-10.2); NEUT % 69.9 % (42.8-82.8); PLATELET COUNT 470 K/MM3 (134-434); RBC 2.58 M/mm3 (4.00-5.60); RDW 18.6 % (11.9-15.9); WHITE BLOOD COUNT 15.1 K/mm3 (4.0-10.0)
[2018-09-25 06:40] LABS: INR 1.26 (0.83-1.09); PROTHROMBIN TIME (PATIENT) 14.9 SEC (9.7-13.0)
[2018-09-25 06:42] LABS: ACTIVATED PTT 32.3 SECONDS (25.2-36.5)
[2018-09-25] MEDS: dilTIAZem HCL 30 MG TABLET (FP) PO SCH ×4 (06:49→23:05)
[2018-09-25 06:59] LABS: ALBUMIN 3.5 g/dl (3.4-5.0); ALK PHOS 63 U/L (45-117); ANION GAP 6 MMOL/L (8-16); BILIRUBIN,TOTAL 0.6 mg/dL (0.2-1); BLOOD UREA NITROGEN 21 mg/dL (7-18); CALCIUM 8.3 mg/dL (8.5-10.1); CHLORIDE 105 mmol/L (98-107); CO2 29 mmol/L (21-32); CREATININE 0.5 mg/dL (0.55-1.3); GLUCOSE,RANDOM 72 mg/dL (74-106); POTASSIUM 5.1 mmol/L (3.5-5.1); SGOT/AST 15 U/L (15-37); SGPT/ALT 16 U/L (13-61); SODIUM 140 mmol/L (136-145); TOT PROT 5.6 g/dl (6.4-8.2)
[2018-09-25] MEDS: TAMSULOSIN HCL 0.4 MG CAP PO SCH (09:14)
[2018-09-25] MEDS: ASPIRIN COATED 81 MG TABLET.EC PO SCH (09:42)
[2018-09-25] MEDS: SOTALOL HCL 80 MG TABLET (FP) PO SCH ×2 (09:42→22:44)
[2018-09-25] MEDS: PANTOPRAZOLE 40 MG TABLET (FP) PO SCH (09:42)
[2018-09-25] MEDS: ANAGRELIDE HCL 1 MG PO SCH ×2 (09:43→22:44)
--- NOTE | 2018-09-25 10:48 | PN ---
Progress Note (short form) - Note Progress Note: Covering for Dr. Childs 73 yr old man AA gentleman with a hx of HTN, MPD, hx of paroxysmal Afib, hemachromatosis, left ventricular diastolic dysfunction, recurring anemia, thrombocytopenia and critical carotid artery stenosis, underwent left carotid end artectomy complicated by left neck hematoma No chest pain, palps, dyspnea, edema, she removed today. Current Medications Acetaminophen (Tylenol Suppository -) 650 mg [place] Q6H PRN PRN Reason: FEVER Anagrelide HCl (Agrylin) 1 mg PO BID [facility] Last Admin: 09/25/18 09:43 Dose: 1 mg Aspirin (Ecotrin -) 81 mg PO DAILY [facility] Last Admin: 09/25/18 09:42 Dose: 81 mg Diltiazem HCl (Cardizem -) 30 mg PO Q6HPO [facility] Last Admin: 09/25/18 06:49 Dose: 30 mg Pantoprazole Sodium (Protonix -) 40 mg PO DAILY [facility] Last Admin: 09/25/18 09:42 Dose: 40 mg Phenol/Menthol (Chloraseptic -) 1 spray MM Q6H PRN PRN Reason: SORE THROAT Sotalol HCl (Betapace -) 80 mg PO BID [facility] Last Admin: 09/25/18 09:42 Dose: 80 mg Tamsulosin HCl (Flomax -) 0.4 mg PO DAILY@0830 [facility] Last Admin: 09/25/18 09:14 Dose: 0.4 mg Vital Signs Period Temp Pulse Resp BP Sys/Paredes Pulse Ox Last 24 Hr 97.6 F-98.7 F 65-72 16-18 102-129/45-78 98-98 Neck: No JVD, -ve HJR on the right neck, further decrease in left neck swelling , rt. carotid 2+. Heart: PMI in 5th intercostal space, no heaves or thrills, S1, S2 are normal. Grade I/ ejection systolic murmur in 2nd right intercostal space, no diastolic murmur or gallops heard. Lungs: Clear bilaterally. Abdomen: soft, nontender, no hepatomegaly or palpable masses. 2+ splenomegaly Ext: no calf tenderness or dependent edema, pulses are normal. tele: sinus Impression: 1. Hypertension/HCVD, currently normotensive. 2. Paroxysmal atrial fibrillation, currently in sinus rhythm. 3. Status post left carotid endartectomy 4. S/P bleeding and hematoma at the surgical site, resolved. 5. Myeloproliferative disorder with thrombocytosis. 6. History of moderate tricuspid regurgitation. 7. Anemia. Recommendation: 1. Continue current cardiac therapy, aspirin restarted 2. plan per vascular 3. Increase ambulation.
--- NOTE | 2018-09-25 11:59 | PN ---
Progress Note (short form) - Note Progress Note: Pt without any complaints. Tolerating a diet. No CP/SOB. Pt seen today with Dr. Holloway Vital Signs Period Temp Pulse Resp BP Sys/Paredes Pulse Ox Last 24 Hr 97.6 F-98.7 F 65-72 16-18 102-129/45-78 98-98 GEN: A&0x3, NAD Neck: inc c/d/i with steri-strips. Two remaining she removed. Hemtoma soft, minimal ecchymosis CBC, BMP 09/25/18 05:30 09/25/18 05:30 AP: 73 yo male s/p Left CEA with post-op hematoma evacuation Stable surgically Hematology follow up regarding anagrelide dose, plts now 470
[2018-09-25 12:10] LABS: ANISOCYTOSIS 2+; MACROCYTOSIS 0; PLATELET ESTIMATE INCREASED; TARGET CELLS 1+
--- NOTE | 2018-09-25 15:13 | PN ---
Physical Exam: SUBJECTIVE: Patient seen and examined; no new complaints; she removed; uptrend in platelets today to 470 OBJECTIVE: Vital Signs Period Temp Pulse Resp BP Sys/Paredes Pulse Ox Last 24 Hr 97.6 F-98.7 F 67-78 16-18 104-129/45-78 98-98 GENERAL: The patient is awake, alert, and fully oriented, in no acute distress. NECK: left neck s/p carotid entarterectomy; staple removed; incision c/d/i; swelling decreased LUNGS: Breath sounds equal, clear to auscultation bilaterally, no wheezes, no crackles, no accessory muscle use. HEART: Regular rate and rhythm, S1, S2 without murmur, rub or gallop. ABDOMEN: Soft, nontender, nondistended, normoactive bowel sounds, no guarding, no rebound, no hepatosplenomegaly, no masses. EXTREMITIES: 2+ pulses, warm, well-perfused, no edema. NEUROLOGICAL: Cranial nerves II through XII grossly intact. Normal speech, gait not observed. PSYCH: Normal mood, normal affect. SKIN: Warm, dry, normal turgor, no rashes or lesions noted Laboratory Results - last 24 hr 09/25/18 09/25/18 09/25/18 05:30 05:30 05:30 WBC 15.1 H RBC 2.58 L Hgb 7.6 L Hct 23.2 L MCV 90.2 MCH 29.6 MCHC 32.9 RDW 18.6 H Plt Count 470 H D MPV 11.0 Absolute Neuts (auto) 10.6 H Neutrophils % 69.9 Neutrophils % (Manual) 74.5 Band Neutrophils % 2.0 Lymphocytes % 24.0 Lymphocytes % (Manual) 12.3 D Monocytes % 2.9 L Monocytes % (Manual) 0 L D Eosinophils % 2.5 Eosinophils % (Manual) 3.1 Basophils % 0.7 Basophils % (Manual) 0.0 Myelocytes % (Man) 1 Promyelocytes % (Man) 0 Blast Cells % (Manual) 0 Nucleated RBC % 0 Metamyelocytes 2 D Hypochromia 1+ Platelet Estimate Increased Platelet Comment Giant platelets Polychromasia 2+ Poikilocytosis 2+ Basophilic Stippling 1+ Anisocytosis 2+ Microcytosis 2+ Macrocytosis 0 Target Cells 1+ [place] Cells 0 PT with INR 14.90 H INR 1.26 H PTT (Actin FS) 32.3 Sodium 140 Potassium 5.1 Chloride 105 Carbon Dioxide 29 Anion Gap 6 L BUN 21 H Creatinine 0.5 L Creat Clearance w eGFR > 60 Random Glucose 72 L Calcium 8.3 L Total Bilirubin 0.6 AST 15 ALT 16 Alkaline Phosphatase 63 Total Protein 5.6 L Albumin 3.5 Active Medications Generic Name Dose Route Start Last Admin Trade Name Freq PRN Reason Stop Dose Admin Acetaminophen 650 mg 09/19/18 08:28 Tylenol Suppository - [place] Q6H PRN FEVER Anagrelide HCl 1 mg 09/24/18 22:00 09/25/18 09:43 Agrylin PO 1 mg BID ABBY Administration Aspirin 81 mg 09/19/18 10:00 09/25/18 09:42 Ecotrin - PO 81 mg DAILY ABBY Administration Diltiazem HCl 30 mg 09/19/18 12:00 09/25/18 12:23 Cardizem - PO 30 mg Q6HPO ABBY Administration Pantoprazole Sodium 40 mg 09/19/18 10:00 09/25/18 09:42 Protonix - PO 40 mg DAILY ABBY Administration Phenol/Menthol 1 spray 09/19/18 08:28 Chloraseptic - MM Q6H PRN SORE THROAT Sotalol HCl 80 mg 09/19/18 10:00 09/25/18 09:42 Betapace - PO 80 mg BID ABBY Administration Tamsulosin HCl 0.4 mg 09/19/18 08:30 09/25/18 09:14 Flomax - PO 0.4 mg DAILY@0830 ABBY Administration ASSESSMENT/PLAN: 73 year old man with h/o MPD, HTN, AFIB, COPD S/p left carotid endarterectomy with /p reexploration and suturing due to expanding hematoma. MPD: anagrelide 1G bid asa 81mg qd uptrend in platelets today; to 470 from 290yesterday monitor cbc Visit type - Emergency Visit Emergency Visit: Yes ED Registration Date: 09/10/18 Care time: The patient presented to the Emergency Department on the above date and was hospitalized for further evaluation of their emergent condition. - New Patient This patient is new to me today: No - Critical Care Critical Care patient: No
[2018-09-25] MEDS: HYDROXYUREA 500 MG CAPSULE PO SCH (18:46)
--- NOTE | 2018-09-25 19:45 | PN ---
Teaching Attending Note Name of Resident: Tasha Triplett ATTENDING PHYSICIAN STATEMENT I saw and evaluated the patient. I reviewed the resident's note and discussed the case with the resident. I agree with the resident's findings and plan as documented. SUBJECTIVE: Patient seen and examined Rising platelet count To reinstitute hydrea. OBJECTIVE: ASSESSMENT AND PLAN: Problem List - Problems (1) Carotid stenosis, left Code(s): I65.22 - OCCLUSION AND STENOSIS OF LEFT CAROTID ARTERY (2) HTN (hypertension) Code(s): I10 - ESSENTIAL (PRIMARY) HYPERTENSION Qualifiers: Hypertension type: essential hypertension Qualified Code(s): I10 - Essential (primary) hypertension (3) MDS (myelodysplastic syndrome) Code(s): D46.9 - MYELODYSPLASTIC SYNDROME, UNSPECIFIED (4) Anemia Code(s): D64.9 - ANEMIA, UNSPECIFIED Qualifiers:
[2018-09-25] MEDS ORDERED: PT OWN MED DRAWER 7, Y5N ONE (21:54)
[2018-09-26] MEDS: dilTIAZem HCL 30 MG TABLET (FP) PO SCH ×4 (05:28→23:50)
[2018-09-26] MEDS: HYDROXYUREA 500 MG CAPSULE PO SCH ×2 (05:29→17:01)
[2018-09-26 07:20] LABS: BASO % 0.8 % (0-2.0); EOS % 2.3 % (0-4.5); HEMATOCRIT 23.3 % (35.4-49); HEMOGLOBIN 7.7 GM/dL (11.7-16.9); LYMPH % 20.6 % (8-40); MCH 29.9 pg (25.7-33.7); MEAN CELL VOLUME 90.7 fl (80-96); MEAN PLT VOLUME 10.3 fl (7.5-11.1); MONO % 2.5 % (3.8-10.2); NEUT % 73.8 % (42.8-82.8); PLATELET COUNT 603 K/MM3 (134-434); RBC 2.57 M/mm3 (4.00-5.60); RDW 19.1 % (11.9-15.9); WHITE BLOOD COUNT 17.9 K/mm3 (4.0-10.0)
[2018-09-26] MEDS: TAMSULOSIN HCL 0.4 MG CAP PO SCH (09:26)
[2018-09-26] MEDS: SOTALOL HCL 80 MG TABLET (FP) PO SCH ×2 (09:26→22:07)
[2018-09-26] MEDS: ASPIRIN COATED 81 MG TABLET.EC PO SCH (09:26)
[2018-09-26] MEDS: PANTOPRAZOLE 40 MG TABLET (FP) PO SCH (09:26)
[2018-09-26] MEDS: ANAGRELIDE HCL 1 MG PO SCH ×2 (09:28→22:09)
--- NOTE | 2018-09-26 11:11 | PN ---
Progress Note (short form) - Note Progress Note: Covering for Dr. Childs 73 yr old man AA gentleman with a hx of HTN, MPD, hx of paroxysmal Afib, hemachromatosis, left ventricular diastolic dysfunction, recurring anemia, thrombocytopenia and critical carotid artery stenosis, underwent left carotid end artectomy complicated by left neck hematoma No chest pain, palps, dyspnea, edema. Current Medications Acetaminophen (Tylenol Suppository -) 650 mg NM Q6H PRN PRN Reason: FEVER Anagrelide HCl (Agrylin) 1 mg PO BID [facility] Last Admin: 09/26/18 09:28 Dose: 1 mg Aspirin (Ecotrin -) 81 mg PO DAILY [facility] Last Admin: 09/26/18 09:26 Dose: 81 mg Diltiazem HCl (Cardizem -) 30 mg PO Q6HPO [facility] Last Admin: 09/26/18 05:28 Dose: 30 mg Hydroxyurea (Hydrea -) 500 mg PO Q12H [facility] Last Admin: 09/26/18 05:29 Dose: 500 mg Pantoprazole Sodium (Protonix -) 40 mg PO DAILY [facility] Last Admin: 09/26/18 09:26 Dose: 40 mg Phenol/Menthol (Chloraseptic -) 1 spray MM Q6H PRN PRN Reason: SORE THROAT Sotalol HCl (Betapace -) 80 mg PO BID [facility] Last Admin: 09/26/18 09:26 Dose: 80 mg Tamsulosin HCl (Flomax -) 0.4 mg PO DAILY@0830 [facility] Last Admin: 09/26/18 09:26 Dose: 0.4 mg Vital Signs Period Temp Pulse Resp BP Sys/Paredes Pulse Ox Last 24 Hr 97.7 F-98.6 F 68-78 18-18 111-132/48-72 97-98 Neck: No JVD, -ve HJR on the right neck, further decrease in left neck swelling , rt. carotid 2+. Heart: PMI in 5th intercostal space, no heaves or thrills, S1, S2 are normal. Grade I/ ejection systolic murmur in 2nd right intercostal space, no diastolic murmur or gallops heard. Lungs: Clear bilaterally. Abdomen: soft, nontender, no hepatomegaly or palpable masses. 2+ splenomegaly Ext: no calf tenderness or dependent edema, pulses are normal. tele: sinus Impression: 1. Hypertension/HCVD, currently normotensive. 2. Paroxysmal atrial fibrillation, currently in sinus rhythm. 3. Status post left carotid endartectomy 4. S/P bleeding and hematoma at the surgical site, resolved. 5. Myeloproliferative disorder with thrombocytosis. 6. History of moderate tricuspid regurgitation. 7. Anemia. Recommendation: 1. Continue current cardiac therapy. 2. plan per vascular 3. Manage MPD per hematology
--- NOTE | 2018-09-26 11:24 | DS ---
Physical Exam: SUBJECTIVE: Patient seen and examined OBJECTIVE: Vital Signs Temperature 97.7 F 09/26/18 07:58 Pulse Rate 68 09/26/18 07:58 Respiratory Rate 18 09/26/18 08:02 Blood Pressure 118/66 09/26/18 07:58 O2 Sat by Pulse Oximetry (%) 98 09/26/18 08:02 PHYSICAL EXAM GENERAL: The patient is awake, alert, and fully oriented, in no acute distress. HEAD: Normal with no signs of trauma. EYES: PERRL, extraocular movements intact, sclera anicteric, conjunctiva clear. ENT: Ears normal, nares patent, oropharynx clear without exudates, moist mucous membranes. NECK: Trachea midline, full range of motion, supple. LUNGS: Breath sounds equal, clear to auscultation bilaterally, no wheezes, no crackles, no accessory muscle use. HEART: Regular rate and rhythm, S1, S2 without murmur, rub or gallop. ABDOMEN: Soft, nontender, nondistended, normoactive bowel sounds, no guarding, no rebound, no hepatosplenomegaly, no masses. EXTREMITIES: 2+ pulses, warm, well-perfused, no edema. NEUROLOGICAL: Cranial nerves II through XII grossly intact. Normal speech, gait not observed. PSYCH: Normal mood, normal affect. SKIN: Warm, dry, normal turgor, no rashes or lesions noted. LABS CBC,CMP WBC 17.9 K/mm3 (4.0-10.0) H 09/26/18 05:30 RBC 2.57 M/mm3 (4.00-5.60) L 09/26/18 05:30 Hgb 7.7 GM/dL (11.7-16.9) L 09/26/18 05:30 Hct 23.3 % (35.4-49) L 09/26/18 05:30 MCV 90.7 fl (80-96) 09/26/18 05:30 MCH 29.9 pg (25.7-33.7) 09/26/18 05:30 MCHC 33.0 g/dl (32.0-35.9) 09/26/18 05:30 RDW 19.1 % (11.9-15.9) H 09/26/18 05:30 Plt Count 603 K/MM3 (134-434) H D 09/26/18 05:30 MPV 10.3 fl (7.5-11.1) 09/26/18 05:30 Absolute Neuts (auto) 13.2 K/mm3 (1.5-8.0) H 09/26/18 05:30 Total Counted 100 09/22/18 07:00 Neutrophils % 73.8 % (42.8-82.8) 09/26/18 05:30 Neutrophils % (Manual) 74.5 % (42.8-82.8) 09/25/18 05:30 Band Neutrophils % 2.0 % 09/25/18 05:30 Lymphocytes % 20.6 % (8-40) 09/26/18 05:30 Lymphocytes % (Manual) 12.3 % (8-40) D 09/25/18 05:30 Monocytes % 2.5 % (3.8-10.2) L 09/26/18 05:30 Monocytes % (Manual) 0 % (3.8-10.2) L D 09/25/18 05:30 Eosinophils % 2.3 % (0-4.5) 09/26/18 05:30 Eosinophils % (Manual) 3.1 % (0-4.5) 09/25/18 05:30 Basophils % 0.8 % (0-2.0) 09/26/18 05:30 Basophils % (Manual) 0.0 % (0-2.0) 09/25/18 05:30 Myelocytes % (Man) 1 % (0-2) 09/25/18 05:30 Promyelocytes % (Man) 0 % (0-2) 09/25/18 05:30 Blast Cells % (Manual) 0 % (0-0) 09/25/18 05:30 Nucleated RBC % 1 % (0-0) H 09/26/18 05:30 Metamyelocytes 2 % (0-2) D 09/25/18 05:30 Differential Comment Man diff performed 09/11/18 15:25 Hypochromia 1+ 09/25/18 05:30 Platelet Estimate Increased 09/25/18 05:30 Platelet Comment Giant platelets 09/25/18 05:30 Platelet Comment Slide scanned. 09/11/18 15:25 Polychromasia 2+ 09/25/18 05:30 Poikilocytosis 2+ 09/25/18 05:30 Basophilic Stippling 1+ 09/25/18 05:30 Anisocytosis 2+ 09/25/18 05:30 Microcytosis 2+ 09/25/18 05:30 Macrocytosis 0 09/25/18 05:30 Target Cells 1+ 09/25/18 05:30 Stomatocytes 1+ 09/14/18 05:30 [place] Cells 0 09/25/18 05:30 ESR 7 mm/hr (0-20) 09/14/18 10:00 Retic Count 0.96 % (0.5-1.5) 09/23/18 11:20 Sodium 140 mmol/L (136-145) 09/25/18 05:30 Potassium 5.1 mmol/L (3.5-5.1) 09/25/18 05:30 Plasma Potassium 5.2 mmol/L (3.5-5.2) 09/12/18 08:45 Chloride 105 mmol/L (98-107) 09/25/18 05:30 Carbon Dioxide 29 mmol/L (21-32) 09/25/18 05:30 Anion Gap 6 MMOL/L (8-16) L 09/25/18 05:30 BUN 21 mg/dL (7-18) H 09/25/18 05:30 Creatinine 0.5 mg/dL (0.55-1.3) L 09/25/18 05:30 Creat Clearance w eGFR > 60 (>60) 09/25/18 05:30 POC Glucometer 217 UNITS (80-120) 09/13/18 20:02 Random Glucose 72 mg/dL (74-106) L 09/25/18 05:30 Lactic Acid 1.7 mmol/L (0.4-2.0) 09/14/18 10:00 Uric Acid 7.7 mg/dL (2.6-7.2) H 09/20/18 05:30 Calcium 8.3 mg/dL (8.5-10.1) L 09/25/18 05:30 Phosphorus 3.9 mg/dL (2.5-4.9) 09/18/18 05:20 Magnesium 2.2 mg/dL (1.8-2.4) 09/19/18 05:30 Total Bilirubin 0.6 mg/dL (0.2-1) 09/25/18 05:30 AST 15 U/L (15-37) 09/25/18 05:30 ALT 16 U/L (13-61) 09/25/18 05:30 Alkaline Phosphatase 63 U/L (45-117) 09/25/18 05:30 Creatine Kinase 59 U/L (26-308) 09/11/18 22:20 Troponin I 0.06 ng/ml (0.00-0.05) H 09/14/18 17:30 C-Reactive Protein 0.8 MG/DL (0.00-0.3) H 09/14/18 10:00 B-Natriuretic Peptide 6457.7 pg/ml (5-125) H 09/13/18 16:30 Total Protein 5.6 g/dl (6.4-8.2) L 09/25/18 05:30 Albumin 3.5 g/dl (3.4-5.0) 09/25/18 05:30 HOSPITAL COURSE: Date of Admission:09/10/18 Date of Discharge: 09/26/18 73 year old man was found to have left carotid bruit during work-up for hernia surgery. Carotid Duplex and MRA confirmed a severe stenosis >90%. He had no prior history of CVA, TIA or TMB. Pt presented for scheduled carotid endarterectomy. Pt had surgery if no complications or issues, was admitted to the hospital and placed in the ICU for overnight close observation. In the morning pt was noted to has a Left neck hematoma and had issues with vomiting and high BP overnight, pt was made NPO for possible exploration of wound and hematoma evacuation. During the day, pt had coughing episode with rapid expansion of the hematoma with new dysphagia and voice changes. It was decided that pt would have elective intubation by anesthesia and pt was brought back to the OR for wound exploration and hematoma evacuation. The incision was opened and explored without incident a drain was placed and pt was sent back to the ICU. Hematology was consulted as pt has history of meylodysplastic syndrome which was most like the cause of his bleeding. Multiple treatment methods suggested by Hematology were implemented including platelet transfusion and pt was closely observed in the ICU. Pt continued to improve and was transferred to the floor. Pt at this time is doing well and will be discharged home with.... Minutes to complete discharge: 25 Visit type - Case Type Case Type: Scheduled - Emergency Emergency Visit: No - New patient This patient is new to me today: Yes Date on this admission: 09/26/18
[2018-09-26 13:56] LABS: ANISOCYTOSIS 1+; MACROCYTOSIS 1+; OVALOCYTE 1+; PLATELET ESTIMATE INCREASED; TARGET CELLS 1+
--- NOTE | 2018-09-26 15:08 | PN ---
Teaching Attending Note Name of Resident: Jared Howell ATTENDING PHYSICIAN STATEMENT I saw and evaluated the patient. I reviewed the resident's note and discussed the case with the resident. I agree with the resident's findings and plan as documented. SUBJECTIVE: Patient has no complaints. OBJECTIVE: Vital Signs Period Temp Pulse Resp BP Sys/Paredes Pulse Ox Last 24 Hr 97.7 F-98.6 F 68-78 18-18 111-132/48-72 97-98 HEART: S1S2, RRR, (+) 2/6 SM LUNGS: Clear ABDOMEN: Soft, non-tender, non-distended, normal BS EXTREMITIES: No edema Laboratory Results - last 24 hr 09/26/18 05:30 WBC 17.9 H RBC 2.57 L Hgb 7.7 L Hct 23.3 L MCV 90.7 MCH 29.9 MCHC 33.0 RDW 19.1 H Plt Count 603 H D MPV 10.3 Absolute Neuts (auto) 13.2 H Neutrophils % 73.8 Neutrophils % (Manual) 78.0 Band Neutrophils % 1.0 Lymphocytes % 20.6 Lymphocytes % (Manual) 12.0 Monocytes % 2.5 L Monocytes % (Manual) 6 D Eosinophils % 2.3 Eosinophils % (Manual) 2.0 Basophils % 0.8 Basophils % (Manual) 0.0 Myelocytes % (Man) 0 D Promyelocytes % (Man) 0 Blast Cells % (Manual) 0 Nucleated RBC % 1 H Metamyelocytes 0 D Hypochromia 0 Platelet Estimate Increased Platelet Comment Present Polychromasia 1+ Poikilocytosis 2+ Basophilic Stippling 1+ Anisocytosis 1+ Microcytosis 1+ Macrocytosis 1+ Target Cells 1+ Ovalocytes 1+ Current Medications Generic Name Dose Route Start Last Admin Trade Name Freq PRN Reason Stop Dose Admin Acetaminophen 650 mg 09/19/18 08:28 Tylenol Suppository - [place] Q6H PRN FEVER Anagrelide HCl 1 mg 09/24/18 22:00 09/26/18 09:28 Agrylin PO 1 mg BID ABBY Administration Aspirin 81 mg 09/19/18 10:00 09/26/18 09:26 Ecotrin - PO 81 mg DAILY ABBY Administration Diltiazem HCl 30 mg 09/19/18 12:00 09/26/18 13:16 Cardizem - PO 30 mg Q6HPO ABBY Administration Hydroxyurea 500 mg 09/25/18 18:00 09/26/18 05:29 Hydrea - PO 500 mg Q12H ABBY Administration Pantoprazole Sodium 40 mg 09/19/18 10:00 09/26/18 09:26 Protonix - PO 40 mg DAILY ABBY Administration Phenol/Menthol 1 spray 09/19/18 08:28 Chloraseptic - MM Q6H PRN SORE THROAT Sotalol HCl 80 mg 09/19/18 10:00 09/26/18 09:26 Betapace - PO 80 mg BID ABBY Administration Tamsulosin HCl 0.4 mg 09/19/18 08:30 09/26/18 09:26 Flomax - PO 0.4 mg DAILY@0830 ABBY Administration ASSESSMENT AND PLAN: This is a 73 year old man with a history of HTN, atrial fib, COPD, BPH, myleodysplastic syndrome/myeloproliferative disorder with thrombocytosis and anemia who was admitted for left carotid endarterectomy on 09/10/18 complicated by left neck hematoma and thrombocytosis. 1. MDS/MPD with thrombocytosis and anemia - Transfused 2 units PRBCs, 6 units platelets during this admission - Hemoglobin is stable - Platelet count increasing - Continue aspirin - Agrylin and Hydrea have been started - Continue to monitor hgb, platelets 2. Left carotid stenosis - s/p left carotid endartectomy on 09/10 3. Post-op left neck hematoma - s/p evacuation, drain placement, and carotid suture placement on 09/11 4. Paroxysmal atrial fibrillation - Currently in sinus rhythm - Continue Sotalol, Cardizem 5. HTN - Continue Cardizem 6. COPD - Stable 7. BPH - Continue Flomax
--- NOTE | 2018-09-26 15:19 | PN ---
Physical Exam: SUBJECTIVE: Patient seen and examined at bedside. Pt is a 73 y/o M w/PMH of HTN , Afib (not on AC), COPD, myleoproliferative d/o (w/thrombocytosis and anemia requiring transfusions). He was found to have L carotid bruit on work up foe L inguinal hernia repair and MRA showed >90% stenosis. Pt had L carotid endartectomy on 09/10/18 and subsequently had hematoma formed which required evacuation on 09/11/18 with MODESTA drain placement. Pt was also taken into OR on for suture placement on carotid artery. He remained intubated until 09/13/18. Over the time period b/w 09/10/18 and 09/11/18 pt required 6 units of platelets and 2 PRBCs. He has been improving since and is currently surgically stable for discharge but his platelets have been noted to be elevated and trended from 407 to 603 today and has not yet been cleared by hematology for discharge. Pt currently feels well and offers no complaints. He is able to move his neck, swallow, has his voice back, eats regular diet w/o issue, is ambulating. Denies N/V/F/C, CP, SOB, abd pain, change in bowel or urinary habits, bleeding from surgical wound, blood in urine, LE edema, palpitations. OBJECTIVE: Vital Signs Temperature 97.7 F 09/26/18 07:58 Pulse Rate 68 09/26/18 07:58 Respiratory Rate 18 09/26/18 08:02 Blood Pressure 118/66 09/26/18 07:58 O2 Sat by Pulse Oximetry (%) 98 09/26/18 08:02 GENERAL: The patient is awake, alert, and fully oriented, in no acute distress. EYES: extraocular movements intact, sclera anicteric, conjunctiva clear. ENT: Ears normal, nares patent. NECK: L neck w/steri-strips, surgical site clean, dry, with no signs of infection. No bruits. LUNGS: Breath sounds equal, clear to auscultation bilaterally, no wheezes, no crackles, no accessory muscle use. HEART: Regular rate and rhythm, S1, S2. Systolic murmur in all 4 regions, loudest in tricuspid area. ABDOMEN: Soft, nontender, nondistended, normoactive bowel sounds EXTREMITIES: warm, well-perfused, no edema. No calf tenderness. NEUROLOGICAL: Cranial nerves II through XII grossly intact. Normal speech, gait not observed. PSYCH: Normal mood, normal affect. SKIN: Warm, dry. L neck w/steri-strips, surgical site clean, dry, with no signs of infection. Laboratory Results - last 24 hr 09/26/18 05:30 WBC 17.9 H RBC 2.57 L Hgb 7.7 L Hct 23.3 L MCV 90.7 MCH 29.9 MCHC 33.0 RDW 19.1 H Plt Count 603 H D MPV 10.3 Absolute Neuts (auto) 13.2 H Neutrophils % 73.8 Neutrophils % (Manual) 78.0 Band Neutrophils % 1.0 Lymphocytes % 20.6 Lymphocytes % (Manual) 12.0 Monocytes % 2.5 L Monocytes % (Manual) 6 D Eosinophils % 2.3 Eosinophils % (Manual) 2.0 Basophils % 0.8 Basophils % (Manual) 0.0 Myelocytes % (Man) 0 D Promyelocytes % (Man) 0 Blast Cells % (Manual) 0 Nucleated RBC % 1 H Metamyelocytes 0 D Hypochromia 0 Platelet Estimate Increased Platelet Comment Present Polychromasia 1+ Poikilocytosis 2+ Basophilic Stippling 1+ Anisocytosis 1+ Microcytosis 1+ Macrocytosis 1+ Target Cells 1+ Ovalocytes 1+ Active Medications Generic Name Dose Route Start Last Admin Trade Name Freq PRN Reason Stop Dose Admin Acetaminophen 650 mg 09/19/18 08:28 Tylenol Suppository - [place] Q6H PRN FEVER Anagrelide HCl 1 mg 09/24/18 22:00 09/26/18 09:28 Agrylin PO 1 mg BID ABBY Administration Aspirin 81 mg 09/19/18 10:00 09/26/18 09:26 Ecotrin - PO 81 mg DAILY ABBY Administration Diltiazem HCl 30 mg 09/19/18 12:00 09/26/18 13:16 Cardizem - PO 30 mg Q6HPO ABBY Administration Hydroxyurea 500 mg 09/25/18 18:00 09/26/18 05:29 Hydrea - PO 500 mg Q12H ABBY Administration Pantoprazole Sodium 40 mg 09/19/18 10:00 09/26/18 09:26 Protonix - PO 40 mg DAILY ABBY Administration Phenol/Menthol 1 spray 09/19/18 08:28 Chloraseptic - MM Q6H PRN SORE THROAT Sotalol HCl 80 mg 09/19/18 10:00 09/26/18 09:26 Betapace - PO 80 mg BID ABBY Administration Tamsulosin HCl 0.4 mg 09/19/18 08:30 09/26/18 09:26 Flomax - PO 0.4 mg DAILY@0830 ABBY Administration ASSESSMENT/PLAN: 73 y/o M w/PMH of HTN, Afib (not on AC), COPD, myleoproliferative d/o (w/ thrombocytosis and anemia requiring transfusions) initially admitted for L carotid endarectomy on 09/10/18 with course complicated by L neck hematoma s/p endarterectomy requring drain and suture on carotid artery on 09/11/18. Currently being managed for thrombocytosis. -Myeloproliferative d/o w/thrombocytosis -Hematology on board, f/u recs -c/w hydroxyurea 500 mg bid, anagrelide 1 mg bid -Monitor H/H and platelets -L carotid stenosis s/p L carotid endartectomy on 09/10/18 -also s/p L neck hematoma evacuation and drain placement and carotid suture placement on 09/11/18 -surgical site clean, dry, no signs of infection -can f/u with surgery as outpatient, cleared from surgical standpoint for discharge -Afib -Cardiology on board -c/w sotalol 80 mg po bid, diltiazem 30 mg po q6h -Echo on 09/2015 shows: LV mildly dilated. LVEF nl. LA mod dilated. RA mod dilated. Mod MR. Mod to Severe TR. RVSP elevated at 50-60 mmHg -COPD -not in active exacerbation -keep O2 saturation above 90% -BPH -c/w tamsulosin 0.4 mg po qd -CAD -c/w ASA 81 mg po qd -DVT ppx -EAM and SCDs -GI ppx -Protonix 40 mg PO qd -FEN -No fluids -Monitor electrolytes -Regular diet -Dispo: Monitor on telemetry Visit type - Emergency Visit Emergency Visit: Yes ED Registration Date: 09/10/18 Care time: The patient presented to the Emergency Department on the above date and was hospitalized for further evaluation of their emergent condition. - New Patient This patient is new to me today: Yes Date on this admission: 09/26/18 - Critical Care Critical Care patient: No
--- NOTE | 2018-09-26 18:01 | PN ---
Physical Exam: SUBJECTIVE: Patient seen and examined; again rise in platelets today; OBJECTIVE: Vital Signs Period Temp Pulse Resp BP Sys/Paredes Pulse Ox Last 24 Hr 97.7 F-98.6 F 68-78 18-18 105-132/48-72 97-98 GENERAL: The patient is awake, alert, and fully oriented, in no acute distress. NECK: stables removed left neck ; c/d/i no swelling or erythema noted LUNGS: Breath sounds equal, clear to auscultation bilaterally, no wheezes, no crackles, no accessory muscle use. HEART: Regular rate and rhythm, S1, S2 without murmur, rub or gallop. ABDOMEN: Soft, nontender, nondistended, normoactive bowel sounds, no guarding, no rebound, no hepatosplenomegaly, no masses. EXTREMITIES: 2+ pulses, warm, well-perfused, no edema. NEUROLOGICAL: Cranial nerves II through XII grossly intact. Normal speech, gait not observed. PSYCH: Normal mood, normal affect. SKIN: Warm, dry, normal turgor, no rashes or lesions noted Laboratory Results - last 24 hr 09/26/18 05:30 WBC 17.9 H RBC 2.57 L Hgb 7.7 L Hct 23.3 L MCV 90.7 MCH 29.9 MCHC 33.0 RDW 19.1 H Plt Count 603 H D MPV 10.3 Absolute Neuts (auto) 13.2 H Neutrophils % 73.8 Neutrophils % (Manual) 78.0 Band Neutrophils % 1.0 Lymphocytes % 20.6 Lymphocytes % (Manual) 12.0 Monocytes % 2.5 L Monocytes % (Manual) 6 D Eosinophils % 2.3 Eosinophils % (Manual) 2.0 Basophils % 0.8 Basophils % (Manual) 0.0 Myelocytes % (Man) 0 D Promyelocytes % (Man) 0 Blast Cells % (Manual) 0 Nucleated RBC % 1 H Metamyelocytes 0 D Hypochromia 0 Platelet Estimate Increased Platelet Comment Present Polychromasia 1+ Poikilocytosis 2+ Basophilic Stippling 1+ Anisocytosis 1+ Microcytosis 1+ Macrocytosis 1+ Target Cells 1+ Ovalocytes 1+ Active Medications Generic Name Dose Route Start Last Admin Trade Name Freq PRN Reason Stop Dose Admin Acetaminophen 650 mg 09/19/18 08:28 Tylenol Suppository - [place] Q6H PRN FEVER Anagrelide HCl 1 mg 09/24/18 22:00 09/26/18 09:28 Agrylin PO 1 mg BID ABBY Administration Aspirin 81 mg 09/19/18 10:00 09/26/18 09:26 Ecotrin - PO 81 mg DAILY ABBY Administration Diltiazem HCl 30 mg 09/19/18 12:00 09/26/18 17:01 Cardizem - PO 30 mg Q6HPO ABBY Administration Hydroxyurea 500 mg 09/25/18 18:00 09/26/18 17:01 Hydrea - PO 500 mg Q12H ABBY Administration Pantoprazole Sodium 40 mg 09/19/18 10:00 09/26/18 09:26 Protonix - PO 40 mg DAILY ABBY Administration Phenol/Menthol 1 spray 09/19/18 08:28 Chloraseptic - MM Q6H PRN SORE THROAT Sotalol HCl 80 mg 09/19/18 10:00 09/26/18 09:26 Betapace - PO 80 mg BID ABBY Administration Tamsulosin HCl 0.4 mg 09/19/18 08:30 09/26/18 09:26 Flomax - PO 0.4 mg DAILY@0830 ABBY Administration ASSESSMENT/PLAN: 73 year old man with h/o MPD, HTN, AFIB, COPD S/p left carotid endarterectomy with /p reexploration and suturing due to expanding hematoma. MPD: leukocytosis nted; no signs of infection; overlap from MDS anagrelide 1G bid asa 81mg qd hydrea uptrend in platelets today; monitor cbc can dc tommorrow ; f/u woth Dr. Ac on Monday Visit type - Emergency Visit Emergency Visit: Yes ED Registration Date: 09/10/18 Care time: The patient presented to the Emergency Department on the above date and was hospitalized for further evaluation of their emergent condition. - New Patient This patient is new to me today: No - Critical Care Critical Care patient: No
--- NOTE | 2018-09-26 20:15 | PN ---
Teaching Attending Note Name of Resident: Tasha Triplett ATTENDING PHYSICIAN STATEMENT I saw and evaluated the patient. I reviewed the resident's note and discussed the case with the resident. I agree with the resident's findings and plan as documented. SUBJECTIVE: Patient seen and examined Clinical improvement Back to baseline Labs noted OK for discharge on hydrea and anagrelide with ASA with office follow up with Dr. Ac. OBJECTIVE: ASSESSMENT AND PLAN: Problem List - Problems (1) Carotid stenosis, left Code(s): I65.22 - OCCLUSION AND STENOSIS OF LEFT CAROTID ARTERY (2) HTN (hypertension) Code(s): I10 - ESSENTIAL (PRIMARY) HYPERTENSION Qualifiers: Hypertension type: essential hypertension Qualified Code(s): I10 - Essential (primary) hypertension (3) MDS (myelodysplastic syndrome) Code(s): D46.9 - MYELODYSPLASTIC SYNDROME, UNSPECIFIED (4) Anemia Code(s): D64.9 - ANEMIA, UNSPECIFIED Qualifiers:
[2018-09-27] MEDS: dilTIAZem HCL 30 MG TABLET (FP) PO SCH ×2 (06:48→12:09)
[2018-09-27] MEDS: HYDROXYUREA 500 MG CAPSULE PO SCH (06:48)
[2018-09-27 07:21] LABS: EOS % 2.6 % (0-4.5); HEMATOCRIT 23.6 % (35.4-49); HEMOGLOBIN 7.7 GM/dL (11.7-16.9); LYMPH % 13.3 % (8-40); MCHC 32.7 g/dl (32.0-35.9); MEAN CELL VOLUME 91.8 fl (80-96); MEAN PLT VOLUME 10.1 fl (7.5-11.1); MONO % 3.6 % (3.8-10.2); NEUT % 73.5 % (42.8-82.8); PLATELET COUNT 690 K/MM3 (134-434); RBC 2.57 M/mm3 (4.00-5.60); RDW 18.8 % (11.9-15.9); WHITE BLOOD COUNT 16.8 K/mm3 (4.0-10.0)
[2018-09-27 07:29] LABS: INR 1.25 (0.83-1.09); PROTHROMBIN TIME (PATIENT) 14.8 SEC (9.7-13.0)
[2018-09-27 07:32] LABS: ACTIVATED PTT 34.5 SECONDS (25.2-36.5)
[2018-09-27 07:46] LABS: ALBUMIN 3.4 g/dl (3.4-5.0); ANION GAP 6 MMOL/L (8-16); BLOOD UREA NITROGEN 19 mg/dL (7-18); CALCIUM 8.4 mg/dL (8.5-10.1); CHLORIDE 105 mmol/L (98-107); CO2 29 mmol/L (21-32); CREATININE 0.5 mg/dL (0.55-1.3); GLUCOSE,RANDOM 67 mg/dL (74-106); POTASSIUM 5.2 mmol/L (3.5-5.1); SODIUM 140 mmol/L (136-145)
[2018-09-27] MEDS: TAMSULOSIN HCL 0.4 MG CAP PO SCH (08:36)
[2018-09-27] MEDS ORDERED: PT OWN MED DRAWER 7, Y5N ONE (10:12)
[2018-09-27] MEDS: ANAGRELIDE HCL 1 MG PO SCH (10:18)
[2018-09-27] MEDS: SOTALOL HCL 80 MG TABLET (FP) PO SCH (10:19)
[2018-09-27] MEDS: PANTOPRAZOLE 40 MG TABLET (FP) PO SCH (10:19)
[2018-09-27] MEDS: ASPIRIN COATED 81 MG TABLET.EC PO SCH (10:19)
[2018-09-27 11:00] LABS: ANISOCYTOSIS 2+; MACROCYTOSIS 2+; OVALOCYTE 1+; PLATELET ESTIMATE INCREASED; TARGET CELLS 1+
--- NOTE | 2018-09-27 11:32 | PN ---
Progress Note (short form) - Note Progress Note: cardiology, covering for Dr Childs s: no cp sob palps dizzy. o: Vital Signs Period Temp Pulse Resp BP Sys/Paredes Pulse Ox Last 24 Hr 97.3 F-98.5 F 65-78 18-18 105-140/49-61 98-100 Respiratory: Yes: CTA Bilaterally Gastrointestinal: Yes: Normal Bowel Sounds, Soft. No: Tenderness Cardiovascular: Yes: Pulse Irregular JVD: No PMI: Non-Displaced Heart Sounds: Yes: S1, S2. No: Gallop Murmur: No: Systolic Murmur Edema: No no jaundice diaphoresis Current Medications Generic Name Dose Route Start Last Admin Trade Name Freq PRN Reason Stop Dose Admin Acetaminophen 650 mg 09/19/18 08:28 Tylenol Suppository - [place] Q6H PRN FEVER Anagrelide HCl 1 mg 09/24/18 22:00 09/27/18 10:18 Agrylin PO 1 mg BID ABBY Administration Aspirin 81 mg 09/19/18 10:00 09/27/18 10:19 Ecotrin - PO 81 mg DAILY ABBY Administration Diltiazem HCl 30 mg 09/19/18 12:00 09/27/18 06:48 Cardizem - PO 30 mg Q6HPO ABBY Administration Hydroxyurea 500 mg 09/25/18 18:00 09/27/18 06:48 Hydrea - PO 500 mg Q12H ABBY Administration Pantoprazole Sodium 40 mg 09/19/18 10:00 09/27/18 10:19 Protonix - PO 40 mg DAILY ABBY Administration Phenol/Menthol 1 spray 09/19/18 08:28 Chloraseptic - MM Q6H PRN SORE THROAT Sotalol HCl 80 mg 09/19/18 10:00 09/27/18 10:19 Betapace - PO 80 mg BID ABBY Administration Tamsulosin HCl 0.4 mg 09/19/18 08:30 09/27/18 08:36 Flomax - PO 0.4 mg DAILY@0830 ABBY Administration CBC, BMP 09/27/18 06:00 09/27/18 06:00 echo 07/2016: nl lv/rv, mod arnulfo, mod mr, mod-sev tr, rvsp 50-60 tele: sr a/p: 73 yr old man with a hx of HTN, MPD, hx of paroxysmal Afib, hemachromatosis, left ventricular diastolic dysfunction, recurring anemia, thrombocytopenia and critical carotid artery stenosis, underwent left carotid end artectomy complicated by left neck hematoma. pafib: -rate controlled on sotalol and dilt. Will change to long acting dilt 120 qd. -not on ac 2/2 anemia from MDS, has been on asa carotid stenosis s/p cea: -vascular following htn: -continue current meds mds: -per heme elevated trop: -trop in borderline range with flat trend, not c/w acs. likely due to afib with rvr. cardiac cuellar stable
--- NOTE | 2018-09-27 13:04 | PN ---
Teaching Attending Note Name of Resident: Aliya Bonilla ATTENDING PHYSICIAN STATEMENT I saw and evaluated the patient. I reviewed the resident's note and discussed the case with the resident. I agree with the resident's findings and plan as documented. SUBJECTIVE: asymptomatic. denies Cp, SOB, fever, chills, N/V/C/D OBJECTIVE: Last Vital Signs Temp Pulse Resp BP Pulse Ox 97.9 F 68 18 117/54 L 97 09/27/18 12:14 09/27/18 12:14 09/27/18 12:14 09/27/18 12:14 09/27/18 12:20 General NAD ASSESSMENT AND PLAN: 73 yr old man with a hx of HTN, MPD, hx of paroxysmal Afib, hemachromatosis, left ventricular diastolic dysfunction, recurring anemia, thrombocytopenia and critical carotid artery stenosis, underwent left carotid end artectomy complicated by left neck hematoma. 1. Carotid artery stenosis- s/p CEA. 2. Thrombophilia- slowly trending up. as per hematology ok to d/c on hydrea, anagrelide and asa. will f/u with heme for repeat labs on Monday 3. anemia- low Hgb but stable. hematology aware of low Hgb and being placed on hydrea. normal transfusions thresholds. 4. d/c home
--- NOTE | 2018-09-27 13:08 | DS ---
Physical Exam: SUBJECTIVE: Patient seen this morning and without any complaints. Patient looking forward to going home. OBJECTIVE: Vital Signs Temperature 97.8 F 09/27/18 13:57 Pulse Rate 76 09/27/18 13:57 Respiratory Rate 18 09/27/18 12:14 Blood Pressure 112/48 L 09/27/18 13:57 O2 Sat by Pulse Oximetry (%) 97 09/27/18 12:20 PHYSICAL EXAM GENERAL: The patient is awake, alert, and fully oriented, in no acute distress. EYES: extraocular movements intact, sclera anicteric, conjunctiva clear. ENT: Ears normal, nares patent. NECK: L neck w/steri-strips, surgical site clean, dry, with no signs of infection. No bruits. LUNGS: Breath sounds equal, clear to auscultation bilaterally, no wheezes, no crackles, no accessory muscle use. HEART: Regular rate and rhythm, S1, S2. Systolic murmur in all 4 regions, loudest in tricuspid area. ABDOMEN: Soft, nontender, nondistended, normoactive bowel sounds EXTREMITIES: warm, well-perfused, no edema. No calf tenderness. NEUROLOGICAL: Cranial nerves II through XII grossly intact. Normal speech, gait not observed. PSYCH: Normal mood, normal affect. SKIN: Warm, dry. L neck w/steri-strips, surgical site clean, dry, with no signs of infection. LABS CBC, BMP 09/27/18 06:00 09/27/18 06:00 HOSPITAL COURSE: Date of Admission:09/10/18 Patient admitted by vascular surgeon for L carotid stenosis with MRA >90% stenosis. Left carotid endarterectomy 09/10/18. he then developed a hematoma and was intubated until 09/13. Patient received 2 untis of PRBC. Hgb remained stable. Patient evaluated by surgery and cleared for discharge. While in the hospital patient's platelets were found to be elevated. Patient evaluated by Dr. Johns and hx of myelodysplastic syndrome. . patient able to tolerate hydroxyurea and anagrelide with platelets staying steady in the 600's. Patient will follow up with [facility] as an outpatient. blood cx: no growth soft tissue xray 09/13: no obvious airway deformity/compromise, left basilar opacity maybe basis of atelectasis and or infiltrate CXR:right port, prominent mediastinum and atelectatic changes with pleural reaction at left base, calcification of left hilum Date of Discharge: 09/27/18 Minutes to complete discharge: 45 Discharge Summary Reason For Visit: CAROTID STENOSIS Current Active Problems Carotid stenosis, left (Acute) Condition: Stable - Instructions Diet, Activity, Other Instructions: You were hospitalized due to needing a procedure to remove the plaque from your neck artery (carotid endarterectomy). The resulting clot in your neck was also taken out and it was made sure that your bleeding stopped. You received multiple transfusions for your blood count and platelets. You were also seen by hematology (Dr. Johns) due to your myeloproliferative disorder which caused your blood count and your platelet count to become abnormal. You were continued on a special medication which normalized your platelet count as well. MEDICATIONS: Cardiology saw you and changed your medications around. Please take Diltiazem CD 120mg DAILY as it is now long-acting. Please continue your Sotalol 80mg TWICE DAILY medication as it has been prescribed previously. Please continue taking a baby aspirin as you cannot be on blood thinners due to your myeloproliferative disorder Your Anagrelide (Angrylin) was INCREASED to 1mg TWICE DAILY Continue Hydroxyurea 500mg TWICE DAILY as well Continue your home Protonix 40mg DAILY dose and Flomax 0.4mg DAILY dose. --All medications were sent to the [facility] on [address] The strips on your neck will eventually fall off by themselves. Please do NOT submerge your wound in water (like taking a bath). Try to keep the area dry as well. Follow-up: Please follow-up with Dr. Johns or Dr. Ac. You have an appointment on Monday 10:15 am booked at their offices (address provided in the packet) Please follow-up with Dr. Ortega within 1 week to follow-up your hospital course. Please follow-up with Dr. Holloway in the first week of October for your post -operative evaluation. Referrals: Genaro Johns MD [Staff Physician] - Alfredito Ortega [Staff Physician] - Hernan Holloway MD [Staff Physician] - Disposition: HOME - Home Medications Comprehensive Discharge Medication List: Ambulatory Orders Tamsulosin HCl 0.4 mg PO DAILY 08/31/12 Aspirin [ASA -] 81 mg PO DAILY 04/11/14 Calcium Carbonate/Vitamin D3 [Calcium 500-Vit D3 400 Tablet] 2 tab PO DAILY Amlodipine Besylate [Norvasc -] 5 mg PO DAILY #30 tablet 09/27/18 Anagrelide HCl [Agrylin] 1 mg PO BID #60 capsule 09/27/18 Diltiazem Cd [Cardizem Cd -] 120 mg PO DAILY #30 cap.cd.24h 09/27/18 Hydroxyurea [Hydrea 500Mg Capsule -] 500 mg PO Q12H #60 capsule 09/27/18 Sotalol HCl [Betapace -] 80 mg PO BID@0800,2000 #60 tablet 09/27/18 This patient is new to me today: Yes Date on this admission: 09/28/18 Emergency Visit: No Critical Care patient: No - Discharge Referral Referred to [facility] No
[2018-09-27 13:58] VITALS: BP 112/48; PULSE 76; TEMP 97.8
== END 2018-09-27 14:28 | disposition home or self-care (01) | DRG 37 ==
LOC: JSAMEDAYSX 11:59 → JICU 16:52 → J4W 09-17 20:24
PROVIDERS: ADMIT Internal Medicine; ATTEND Internal Medicine
PROC: 03CJ0Z6 (ICD-10-PCS; 2018-09-10)
PROC: 03CN0Z6 (ICD-10-PCS; 2018-09-10)
PROC: 03CL0Z6 (ICD-10-PCS; 2018-09-10)
PROC: 03UJ0JZ Supplement Left Common Carotid Artery with Synthetic Substitute, Open Approach (ICD-10-PCS; 2018-09-10)
PROC: 03UL0JZ Supplement Left Internal Carotid Artery with Synthetic Substitute, Open Approach (ICD-10-PCS; 2018-09-10)
PROC: 03UN0JZ Supplement Left External Carotid Artery with Synthetic Substitute, Open Approach (ICD-10-PCS; 2018-09-10)
PROC: 3E06017 Introduction of Other Thrombolytic into Central Artery, Open Approach (ICD-10-PCS; 2018-09-10)
PROC: 03CL0Z6 (ICD-10-PCS; principal; 2018-09-10 13:30)
PROC: 0W360ZZ Control Bleeding in Neck, Open Approach (ICD-10-PCS; 2018-09-11)
PROC: 30233N1 Transfusion of Nonautologous Red Blood Cells into Peripheral Vein, Percutaneous Approach (ICD-10-PCS; 2018-09-11)
PROC: 30233R1 Transfusion of Nonautologous Platelets into Peripheral Vein, Percutaneous Approach (ICD-10-PCS; 2018-09-11)
PROC: 0WJ63ZZ Inspection of Neck, Percutaneous Approach (ICD-10-PCS; 2018-09-11)
PROC: 0W9630Z Drainage of Neck with Drainage Device, Percutaneous Approach (ICD-10-PCS; 2018-09-11)
PROC: 5A09357 Assistance with Respiratory Ventilation, Less than 24 Consecutive Hours, Continuous Positive Airway Pressure (ICD-10-PCS; 2018-09-13)
DX: I65.22 Occlusion and stenosis of left carotid artery (principal); J96.00 Acute respiratory failure, unspecified whether with hypoxia or hypercapnia; I97.638 Postprocedural hematoma of a circulatory system organ or structure following other circulatory system procedure; I97.618 Postprocedural hemorrhage of a circulatory system organ or structure following other circulatory system procedure; J98.11 Atelectasis; Y83.8 Other surgical procedures as the cause of abnormal reaction of the patient, or of later complication, without mention of misadventure at the time of the procedure; Y92.230 Patient room in hospital as the place of occurrence of the external cause; D46.9 Myelodysplastic syndrome, unspecified; J44.9 Chronic obstructive pulmonary disease, unspecified; I34.0 Nonrheumatic mitral (valve) insufficiency; I48.0 Paroxysmal atrial fibrillation; I36.1 Nonrheumatic tricuspid (valve) insufficiency; D69.6 Thrombocytopenia, unspecified; E87.5 Hyperkalemia; I11.9 Hypertensive heart disease without heart failure; R13.19 Other dysphagia; N40.0 Benign prostatic hyperplasia without lower urinary tract symptoms; Z87.891 Personal history of nicotine dependence; I73.9 Peripheral vascular disease, unspecified; R63.4 Abnormal weight loss; Z68.20 Body mass index [BMI] 20.0-20.9, adult; R11.0 Nausea
CPT/HCPCS: 31500; 36415; 36430; 36511; 70360-TC-FY; 71045-TC-FY; 80048; 80053; 80076; 82040; 82550; 82962; 83605; 83735; 83880; 84100; 84132; 84484; 84550; 85025; 85027; 85044; 85384; 85610; 85651; 85730; 86140; 86850; 86900; 86901; 86922; 87040; 88304-TC; 88307-TC; 93005; 93010; 94002; 94010; 94640; J0282; J1100; J1644; J2597; J7030; J8999; P9034; P9038; P9058

== ENCOUNTER 2018-10-06 08:45 | Day surgery (SDC) | payer OTHER, BC ==
[2018-10-06 10:36] LABS: BASO % 8.4 % (0-2.0); EOS % 4.2 % (0-4.5); HEMATOCRIT 19.1 % (35.4-49); LYMPH % 13.1 % (8-40); MCH 31.4 pg (25.7-33.7); MCHC 33.5 g/dl (32.0-35.9); MEAN CELL VOLUME 93.7 fl (80-96); MEAN PLT VOLUME 10.9 fl (7.5-11.1); NEUT % 69.3 % (42.8-82.8); RBC 2.03 M/mm3 (4.00-5.60); RDW 20.5 % (11.9-15.9)
[2018-10-06 11:01] LABS: HEMOGLOBIN 6.4 GM/dL (11.7-16.9)
[2018-10-06 14:40] LABS: PLATELET COUNT 255 K/MM3 (134-434)
[2018-10-06 14:42] LABS: OVALOCYTE 1+; PLATELET ESTIMATE ADEQUATE
[2018-10-07 05:36] LABS: EOS % 8.4 % (0-4.5); HEMATOCRIT 21.9 % (35.4-49); HEMOGLOBIN 7.5 GM/dL (11.7-16.9); MCH 31.3 pg (25.7-33.7); MCHC 34.2 g/dl (32.0-35.9); MEAN CELL VOLUME 91.6 fl (80-96); MEAN PLT VOLUME 9.4 fl (7.5-11.1); NEUT % 59.6 % (42.8-82.8); PLATELET COUNT 202 K/MM3 (134-434); RBC 2.39 M/mm3 (4.00-5.60); RDW 16.5 % (11.9-15.9); WHITE BLOOD COUNT 5.6 K/mm3 (4.0-10.0)
[2018-10-07 12:01] VITALS: BP 127/73; PULSE 71; TEMP 98.1
== END 2018-10-07 14:08 | disposition home or self-care (01) ==
LOC: J7W 08:45 → JBLOOD 08:45 → J7W 09:09 → JBLOOD 10-07 14:08
PROVIDERS: ATTEND Internal Medicine Hematology & Oncology
PROC: 30233N1 Transfusion of Nonautologous Red Blood Cells into Peripheral Vein, Percutaneous Approach (ICD-10-PCS; principal; 2018-10-06)
DX: D46.9 Myelodysplastic syndrome, unspecified (principal)
CPT/HCPCS: 36415; 36430; 85025; 86850; 86900; 86901; 86922; P9038; P9058

== ENCOUNTER 2018-10-31 08:23 | Day surgery (SDC) | payer OTHER, BC ==
[2018-10-31 09:43] LABS: HEMOGLOBIN 8.3 GM/dL (11.7-16.9); MCH 31.7 pg (25.7-33.7); MCHC 33.1 g/dl (32.0-35.9); MEAN CELL VOLUME 95.5 fl (80-96); MEAN PLT VOLUME 11.3 fl (7.5-11.1); PLATELET COUNT 271 K/MM3 (134-434); RBC 2.61 M/mm3 (4.00-5.60); RDW 22.5 % (11.9-15.9); WHITE BLOOD COUNT 12.2 K/mm3 (4.0-10.0)
[2018-10-31 10:13] LABS: ALBUMIN 4.4 g/dl (3.4-5.0); ALK PHOS 75 U/L (45-117); ANION GAP 6 MMOL/L (8-16); BILIRUBIN,DIRECT 0.4 mg/dL (0.0-0.2); BILIRUBIN,TOTAL 1.6 mg/dL (0.2-1); BLOOD UREA NITROGEN 29 mg/dL (7-18); CALCIUM 8.7 mg/dL (8.5-10.1); CHLORIDE 104 mmol/L (98-107); CO2 28 mmol/L (21-32); CREATININE 0.8 mg/dL (0.55-1.3); GLUCOSE,RANDOM 120 mg/dL (74-106); POTASSIUM 4.9 mmol/L (3.5-5.1); SGOT/AST 17 U/L (15-37); SGPT/ALT 20 U/L (13-61); SODIUM 138 mmol/L (136-145); TOT PROT 6.6 g/dl (6.4-8.2)
[2018-10-31 16:38] VITALS: BP 123/57; PULSE 77; TEMP 98.3
== END 2018-10-31 17:48 | disposition home or self-care (01) ==
LOC: JONCBLOOD 08:23 → J7W 08:23 → JONCBLOOD 17:48
PROVIDERS: ATTEND Internal Medicine Hematology & Oncology
PROC: 30233N1 Transfusion of Nonautologous Red Blood Cells into Peripheral Vein, Percutaneous Approach (ICD-10-PCS; principal; 2018-10-31)
DX: D46.9 Myelodysplastic syndrome, unspecified (principal)
CPT/HCPCS: 36415; 36430; 80048; 80053; 80076; 85027; P9038; P9058

== ENCOUNTER 2018-11-21 14:21 | Inpatient (IN) | payer OTHER, BC ==
[2018-11-21 15:53] LABS: HEMATOCRIT 15.6 % (35.4-49); MCH 32.1 pg (25.7-33.7); MCHC 32.7 g/dl (32.0-35.9); MEAN CELL VOLUME 98.2 fl (80-96); MEAN PLT VOLUME 11.3 fl (7.5-11.1); PLATELET COUNT 252 K/MM3 (134-434); RBC 1.58 M/mm3 (4.00-5.60); RDW 22.9 % (11.9-15.9); WHITE BLOOD COUNT 8.2 K/mm3 (4.0-10.0)
[2018-11-21 16:08] LABS: HEMOGLOBIN 5.1 GM/dL (11.7-16.9)
[2018-11-21 16:45] LABS: ANION GAP 7 MMOL/L (8-16); BLOOD UREA NITROGEN 21 mg/dL (7-18); CALCIUM 9.3 mg/dL (8.5-10.1); CHLORIDE 106 mmol/L (98-107); CO2 28 mmol/L (21-32); CREATININE 0.8 mg/dL (0.55-1.3); GLUCOSE,RANDOM 135 mg/dL (74-106); LDH 181 U/L (87-246); SODIUM 141 mmol/L (136-145); URIC ACID 9.1 mg/dL (2.6-7.2)
[2018-11-21] MEDS ORDERED: FUROSEMIDE 40 MG/4 ML INJECTABLE VIAL IVPUSH ONE (22:30)
[2018-11-22 07:33] LABS: EOS % 2.6 % (0-4.5); HEMATOCRIT 19.1 % (35.4-49); LYMPH % 21.4 % (8-40); MCH 32.2 pg (25.7-33.7); MCHC 34.1 g/dl (32.0-35.9); MEAN CELL VOLUME 94.4 fl (80-96); MEAN PLT VOLUME 11.2 fl (7.5-11.1); MONO % 5.4 % (3.8-10.2); NEUT % 66.6 % (42.8-82.8); PLATELET COUNT 224 K/MM3 (134-434); RBC 2.03 M/mm3 (4.00-5.60); RDW 15.1 % (11.9-15.9)
[2018-11-22 08:04] LABS: HEMOGLOBIN 6.5 GM/dL (11.7-16.9)
[2018-11-22 08:28] LABS: ANION GAP 6 MMOL/L (8-16); BLOOD UREA NITROGEN 13 mg/dL (7-18); CHLORIDE 118 mmol/L (98-107); CO2 24 mmol/L (21-32); CREATININE 0.4 mg/dL (0.55-1.3); GLUCOSE,RANDOM 63 mg/dL (74-106); POTASSIUM 3.1 mmol/L (3.5-5.1); SODIUM 148 mmol/L (136-145)
[2018-11-22 09:02] LABS: EOS % 2.4 % (0-4.5); HEMATOCRIT 19.9 % (35.4-49); LYMPH % 18.3 % (8-40); MCH 32.3 pg (25.7-33.7); MCHC 34.4 g/dl (32.0-35.9); MEAN CELL VOLUME 93.9 fl (80-96); MEAN PLT VOLUME 10.7 fl (7.5-11.1); MONO % 3.8 % (3.8-10.2); NEUT % 70.5 % (42.8-82.8); PLATELET COUNT 228 K/MM3 (134-434); RBC 2.12 M/mm3 (4.00-5.60); WHITE BLOOD COUNT 7.6 K/mm3 (4.0-10.0)
[2018-11-22] MEDS ORDERED: PORTA CATH FLUSH 10 ML IVPUSH ONE (09:06)
[2018-11-22 09:07] LABS: HEMOGLOBIN 6.8 GM/dL (11.7-16.9)
[2018-11-22 09:11] LABS: CALCIUM 6.3 mg/dL (8.5-10.1)
[2018-11-22] MEDS ORDERED: POTASSIUM CHLORIDE TABS 20 MEQ TABLET.ER (FP) PO ONE (10:30)
[2018-11-22] MEDS: KCL 10 MEQ IVPB 10 MEQ/100 ML INFUS.BAG IVPB SCH (10:45)
[2018-11-22] MEDS ORDERED: CALCIUM GLUCONATE 10% - 1,000 MG/10 ML VIAL IVPB ONE (11:00)
[2018-11-22 12:14] LABS: ALBUMIN 2.4 g/dl (3.4-5.0); ALK PHOS 39 U/L (45-117); BILIRUBIN,DIRECT 0.2 mg/dL (0.0-0.2); BILIRUBIN,TOTAL 1.1 mg/dL (0.2-1); SGOT/AST 8 U/L (15-37); SGPT/ALT 11 U/L (13-61); TOT PROT 3.8 g/dl (6.4-8.2)
[2018-11-22 19:32] LABS: HEMATOCRIT 22.4 % (35.4-49); HEMOGLOBIN 7.5 GM/dL (11.7-16.9); MCH 31.9 pg (25.7-33.7); MCHC 33.7 g/dl (32.0-35.9); MEAN CELL VOLUME 94.5 fl (80-96); MEAN PLT VOLUME 11.3 fl (7.5-11.1); PLATELET COUNT 218 K/MM3 (134-434); RBC 2.37 M/mm3 (4.00-5.60); RDW 14.8 % (11.9-15.9); WHITE BLOOD COUNT 8.6 K/mm3 (4.0-10.0)
[2018-11-22 20:06] LABS: ANION GAP 4 MMOL/L (8-16); BLOOD UREA NITROGEN 19 mg/dL (7-18); CALCIUM 9.1 mg/dL (8.5-10.1); CHLORIDE 106 mmol/L (98-107); CO2 31 mmol/L (21-32); CREATININE 0.7 mg/dL (0.55-1.3); GLUCOSE,RANDOM 93 mg/dL (74-106); SODIUM 140 mmol/L (136-145)
[2018-11-22 20:25] LABS: POTASSIUM 6.2 mmol/L (3.5-5.1)
[2018-11-22 21:11] LABS: BASO % 3.4 % (0-2.0); EOS % 3.4 % (0-4.5); HEMATOCRIT 21.8 % (35.4-49); HEMOGLOBIN 7.3 GM/dL (11.7-16.9); LYMPH % 15.6 % (8-40); MCH 31.8 pg (25.7-33.7); MCHC 33.7 g/dl (32.0-35.9); MEAN CELL VOLUME 94.4 fl (80-96); MEAN PLT VOLUME 10.8 fl (7.5-11.1); NEUT % 72.6 % (42.8-82.8); PLATELET COUNT 228 K/MM3 (134-434); RBC 2.31 M/mm3 (4.00-5.60); RDW 14.5 % (11.9-15.9); WHITE BLOOD COUNT 8.7 K/mm3 (4.0-10.0)
[2018-11-22 22:07] LABS: ANION GAP 4 MMOL/L (8-16); BLOOD UREA NITROGEN 20 mg/dL (7-18); CALCIUM 9.3 mg/dL (8.5-10.1); CHLORIDE 105 mmol/L (98-107); CO2 31 mmol/L (21-32); CREATININE 0.6 mg/dL (0.55-1.3); GLUCOSE,RANDOM 93 mg/dL (74-106); POTASSIUM 5.7 mmol/L (3.5-5.1); SODIUM 140 mmol/L (136-145)
--- NOTE | 2018-11-22 22:14 | HP ---
Satellite [facility] - Chief Complaint Chief Complaint: Here for elective blood transfusion History Source: Caregiver - Past Medical History Allergies/Adverse Reactions: Allergies Allergy/AdvReac Type Severity Reaction Status Date / Time No Known Allergies Allergy Verified 09/07/18 14:05 Cardiovascular: Yes: AFIB, HTN Pulmonary: Yes: COPD Heme/Onc: Yes: Myeloproliferative Synd, Other (Thrombocytosis) - Current Medications Current Medications: Home Medications Medication Instructions Recorded Tamsulosin HCl 0.4 mg PO DAILY 08/31/12 Aspirin [ASA -] 81 mg PO DAILY 04/11/14 Calcium Carbonate/Vitamin D3 2 tab PO DAILY 09/19/17 [Calcium 500-Vit D3 400 Tablet] Amlodipine Besylate [Norvasc -] 5 mg PO DAILY #30 tablet 09/27/18 Anagrelide HCl [Agrylin] 1 mg PO BID #60 capsule 09/27/18 Diltiazem Cd [Cardizem Cd -] 120 mg PO DAILY #30 cap.cd.24h 09/27/18 Hydroxyurea [Hydrea 500Mg Capsule 500 mg PO Q12H #60 capsule 09/27/18 -] Sotalol HCl [Betapace -] 80 mg PO BID@0800,2000 #60 tablet 09/27/18 Satellite Physical Exam - Physical Examination Vital Signs: Vital Signs Period Temp Pulse Resp BP Sys/Paredes Pulse Ox Last 24 Hr 85 F-98.9 F 73-98 18-18 120-145/59-98 General Appearance: Alert & Oriented x3 Lung: Clear to auscultation Heart: Regular rate & rhythm, Normal S1, Normal S2 Abdomen: Soft, No tenderness, Normal bowel sounds Extremities: No edema Neurological: Intact Satellite Impression/Plan - Impression/Plan Impression: 73 y/o patient with MDS/MPD. Transfusion dependent. For 3 rd unit PRBCS today. Replete lytes
[2018-11-23] MEDS: KCL 10 MEQ IVPB 10 MEQ/100 ML INFUS.BAG IVPB SCH (05:52)
[2018-11-23 08:12] LABS: BASO % 3.9 % (0-2.0); EOS % 4.3 % (0-4.5); HEMATOCRIT 22.6 % (35.4-49); HEMOGLOBIN 7.7 GM/dL (11.7-16.9); LYMPH % 19.2 % (8-40); MCHC 34.2 g/dl (32.0-35.9); MEAN CELL VOLUME 93.5 fl (80-96); MONO % 4.6 % (3.8-10.2); PLATELET COUNT 219 K/MM3 (134-434); RBC 2.42 M/mm3 (4.00-5.60); RDW 15.2 % (11.9-15.9); WHITE BLOOD COUNT 7.9 K/mm3 (4.0-10.0)
[2018-11-23 08:40] LABS: ANION GAP 3 MMOL/L (8-16); BLOOD UREA NITROGEN 18 mg/dL (7-18); CALCIUM 9.1 mg/dL (8.5-10.1); CHLORIDE 102 mmol/L (98-107); CO2 31 mmol/L (21-32); CREATININE 0.5 mg/dL (0.55-1.3); GLUCOSE,RANDOM 78 mg/dL (74-106); SODIUM 137 mmol/L (136-145)
--- NOTE | 2018-11-23 09:25 | PN ---
Progress Note (short form) - Note Progress Note: Patient seen and examined S/P 3 units of packed cells. Hb/Hct remains depressed (7.7g/22.6%) Will plan for additional units of packed cells Last Vital Signs Temp Pulse Resp BP Pulse Ox 98.2 F 72 18 155/69 11/23/18 05:52 11/23/18 05:52 11/23/18 05:52 11/23/18 05:52 HEENT: VIVIAN, EOM Intact Oropharynx: No thrush, No mucositis Neck: Supple Nodes: Without adenopathy Cor: RSR,systolic murmur Lungs: Clear to P&A Abd: Soft, liver 6 cm, spleen 6 cm Ext:No significant edema Skin: No rashes, Integument intact CBC, BMP 11/23/18 06:15 11/23/18 06:15 Impression: MPD/Thrombocytosis Anemia Plan : Transfuse 2 additional units of packed cells.
[2018-11-23] MEDS ORDERED: FUROSEMIDE 20 MG TABLET (FP) PO SCH (09:31)
[2018-11-23 13:27] VITALS: BMI 19.5
[2018-11-23] MEDS ORDERED: PT OWN MED DRAWER 7, Y5N ONE (16:20)
[2018-11-23] MEDS ORDERED: DRONABINOL 2.5 MG CAPSULE PO SCH (16:30)
[2018-11-23 19:50] VITALS: BP 122/68; PULSE 76; TEMP 98
[2018-11-23 19:58] LABS: BASO % 2.7 % (0-2.0); EOS % 4.5 % (0-4.5); HEMATOCRIT 27.7 % (35.4-49); HEMOGLOBIN 9.4 GM/dL (11.7-16.9); MCH 32.1 pg (25.7-33.7); MCHC 34.1 g/dl (32.0-35.9); MEAN CELL VOLUME 94.2 fl (80-96); MONO % 4.9 % (3.8-10.2); NEUT % 71.9 % (42.8-82.8); RBC 2.94 M/mm3 (4.00-5.60); RDW 14.2 % (11.9-15.9); WHITE BLOOD COUNT 8.6 K/mm3 (4.0-10.0)
[2018-11-23 21:23] LABS: MEAN PLT VOLUME 10.9 fl (7.5-11.1); PLATELET COUNT 212 K/MM3 (134-434); PLATELET ESTIMATE ADEQUATE
== END 2018-11-23 20:48 | disposition home or self-care (01) | DRG 842 ==
LOC: JONCBLOOD 14:21 → J7W 14:22 → JONCBLOOD 11-22 19:44 → J7W 11-22 19:45
PROVIDERS: ADMIT Internal Medicine Hematology & Oncology; ATTEND Internal Medicine Hematology & Oncology
PROC: 30233N1 Transfusion of Nonautologous Red Blood Cells into Peripheral Vein, Percutaneous Approach (ICD-10-PCS; principal; 2018-11-21)
DX: D47.Z9 Other specified neoplasms of uncertain behavior of lymphoid, hematopoietic and related tissue (principal); C94.6 Myelodysplastic disease, not elsewhere classified; I48.91 Unspecified atrial fibrillation; J44.9 Chronic obstructive pulmonary disease, unspecified; I10 Essential (primary) hypertension; D47.3 Essential (hemorrhagic) thrombocythemia; D63.0 Anemia in neoplastic disease
CPT/HCPCS: 36415; 36430; 36511; 80048; 80076; 83615; 84550; 85025; 85027; 86850; 86900; 86901; 86922; P9038; P9058

== ENCOUNTER 2018-12-12 07:56 | Day surgery (SDC) | payer OTHER, BC ==
[2018-12-12 09:13] LABS: BASO % 3.7 % (0-2.0); EOS % 2.3 % (0-4.5); HEMATOCRIT 22.4 % (35.4-49); HEMOGLOBIN 7.1 GM/dL (11.7-16.9); LYMPH % 13.2 % (8-40); MCH 31.1 pg (25.7-33.7); MCHC 31.8 g/dl (32.0-35.9); MEAN PLT VOLUME 10.6 fl (7.5-11.1); MONO % 4.1 % (3.8-10.2); NEUT % 76.7 % (42.8-82.8); PLATELET COUNT 342 K/MM3 (134-434); RBC 2.28 M/mm3 (4.00-5.60); RDW 15.4 % (11.9-15.9); WHITE BLOOD COUNT 9.9 K/mm3 (4.0-10.0)
[2018-12-12 09:51] LABS: CALCIUM 8.6 mg/dL (8.5-10.1); CREATININE 0.5 mg/dL (0.55-1.3); POTASSIUM 4.3 mmol/L (3.5-5.1); URIC ACID 7.1 mg/dL (2.6-7.2)
[2018-12-12] MEDS ORDERED: PORTA CATH FLUSH 10 ML IVPUSH ONE (18:15)
[2018-12-12 20:50] LABS: BASO % 3.6 % (0-2.0); EOS % 2.4 % (0-4.5); HEMATOCRIT 25.1 % (35.4-49); HEMOGLOBIN 8.3 GM/dL (11.7-16.9); MCH 31.4 pg (25.7-33.7); MCHC 33.1 g/dl (32.0-35.9); MEAN CELL VOLUME 94.8 fl (80-96); MEAN PLT VOLUME 9.6 fl (7.5-11.1); MONO % 4.4 % (3.8-10.2); NEUT % 75.6 % (42.8-82.8); PLATELET COUNT 245 K/MM3 (134-434); RBC 2.65 M/mm3 (4.00-5.60); RDW 14.7 % (11.9-15.9); WHITE BLOOD COUNT 9.4 K/mm3 (4.0-10.0)
[2018-12-13 07:12] LABS: BASO % 3.4 % (0-2.0); HEMATOCRIT 26.1 % (35.4-49); HEMOGLOBIN 8.9 GM/dL (11.7-16.9); LYMPH % 11.2 % (8-40); MCH 31.4 pg (25.7-33.7); MCHC 34.1 g/dl (32.0-35.9); MEAN CELL VOLUME 92.1 fl (80-96); MEAN PLT VOLUME 10.5 fl (7.5-11.1); MONO % 2.8 % (3.8-10.2); NEUT % 80.6 % (42.8-82.8); PLATELET COUNT 273 K/MM3 (134-434); RBC 2.83 M/mm3 (4.00-5.60); WHITE BLOOD COUNT 10.4 K/mm3 (4.0-10.0)
[2018-12-13 08:55] VITALS: BP 132/58; PULSE 77; TEMP 98.8
== END 2018-12-13 10:16 | disposition home or self-care (01) ==
LOC: JONCBLOOD 07:56 → J7W 08:11 → JONCBLOOD 12-13 10:16
PROVIDERS: ATTEND Internal Medicine Hematology & Oncology
PROC: 30233N1 Transfusion of Nonautologous Red Blood Cells into Peripheral Vein, Percutaneous Approach (ICD-10-PCS; principal; 2018-12-12)
DX: C94.6 Myelodysplastic disease, not elsewhere classified (principal)
CPT/HCPCS: 36415; 36430; 36511; 80048; 83615; 84550; 85025; 86850; 86900; 86901; 86922; P9038; P9058

== ENCOUNTER 2019-01-14 13:00 | Inpatient (IN) | payer OTHER, BC ==
[2019-01-14 13:39] LABS: HEMATOCRIT 19.7 % (35.4-49); MCH 31.7 pg (25.7-33.7); MCHC 33.3 g/dl (32.0-35.9); MEAN CELL VOLUME 95.2 fl (80-96); MEAN PLT VOLUME 11.2 fl (7.5-11.1); PLATELET COUNT 232 K/MM3 (134-434); RBC 2.07 M/mm3 (4.00-5.60); RDW 16.6 % (11.9-15.9)
[2019-01-14 14:02] LABS: ALBUMIN 4.3 g/dl (3.4-5.0); BILIRUBIN,TOTAL 1.8 mg/dL (0.2-1); BLOOD UREA NITROGEN 33.8 mg/dL (7-18); CALCIUM 9.5 mg/dL (8.5-10.1); POTASSIUM 5.5 mmol/L (3.5-5.1); TOT PROT 6.6 g/dl (6.4-8.2)
[2019-01-14 14:16] LABS: HEMOGLOBIN 6.6 GM/dL (11.7-16.9)
--- NOTE | 2019-01-14 20:04 | HP ---
Satellite [facility] - Chief Complaint Chief Complaint: Here for follow up of myeloproliferative disorder. Symptomatic anemia - Past Medical History Allergies/Adverse Reactions: Allergies Allergy/AdvReac Type Severity Reaction Status Date / Time No Known Allergies Allergy Verified 09/07/18 14:05 Cardiovascular: Yes: AFIB, HTN Pulmonary: Yes: COPD Heme/Onc: Yes: Myeloproliferative Synd, Other (Thrombocytosis) - Current Medications Current Medications: Home Medications Medication Instructions Recorded Tamsulosin HCl 0.4 mg PO DAILY 08/31/12 Aspirin [ASA -] 81 mg PO DAILY 04/11/14 Calcium Carbonate/Vitamin D3 2 tab PO DAILY 09/19/17 [Calcium 500-Vit D3 400 Tablet] Amlodipine Besylate [Norvasc -] 5 mg PO DAILY #30 tablet 09/27/18 Anagrelide HCl [Agrylin] 1 mg PO BID #60 capsule 09/27/18 Diltiazem Cd [Cardizem Cd -] 120 mg PO DAILY #30 cap.cd.24h 09/27/18 Hydroxyurea [Hydrea 500Mg Capsule 500 mg PO Q12H #60 capsule 09/27/18 -] Sotalol HCl [Betapace -] 80 mg PO BID@0800,2000 #60 tablet 09/27/18 Satellite Physical Exam - Physical Examination Vital Signs: Vital Signs Period Temp Pulse Resp BP Sys/Paredes Pulse Ox Last 24 Hr 98.3 F-98.3 F 76-81 18-18 109-126/46-58 General Appearance: Alert & Oriented x3 Lung: Clear to auscultation, Normal air movement Heart: Regular rate & rhythm, Normal S1, Normal S2 Abdomen: Soft, No tenderness, Normal bowel sounds Extremities: No edema Neurological: Intact Satellite Impression/Plan - Impression/Plan Impression: Symptomatic anemia. myeloproliferative disorder. Transfuse PRBCS
[2019-01-15 10:31] LABS: BASO % 5.4 % (0-2.0); EOS % 2.4 % (0-4.5); HEMATOCRIT 23.3 % (35.4-49); HEMOGLOBIN 7.9 GM/dL (11.7-16.9); LYMPH % 17.3 % (8-40); MCH 31.6 pg (25.7-33.7); MCHC 33.7 g/dl (32.0-35.9); MEAN CELL VOLUME 93.9 fl (80-96); MEAN PLT VOLUME 11.3 fl (7.5-11.1); MONO % 3.8 % (3.8-10.2); NEUT % 71.1 % (42.8-82.8); RBC 2.49 M/mm3 (4.00-5.60); RDW 14.2 % (11.9-15.9); WHITE BLOOD COUNT 6.8 K/mm3 (4.0-10.0)
[2019-01-15 12:31] LABS: ANISOCYTOSIS 1+; MACROCYTOSIS 1+; PLATELET ESTIMATE NORMAL
[2019-01-15 13:10] LABS: PLATELET COUNT 199 K/MM3 (134-434)
[2019-01-15 18:20] LABS: HEMATOCRIT 23.4 % (35.4-49); HEMOGLOBIN 7.8 GM/dL (11.7-16.9); MCH 31.2 pg (25.7-33.7); MCHC 33.3 g/dl (32.0-35.9); MEAN CELL VOLUME 93.6 fl (80-96); PLATELET COUNT 189 K/MM3 (134-434); RDW 14.5 % (11.9-15.9); WHITE BLOOD COUNT 6.5 K/mm3 (4.0-10.0)
--- NOTE | 2019-01-15 20:39 | PN ---
Progress Note (short form) - Note Progress Note: Patient seen and examined Has received 3 units of packed cells to date Remains with sigMyeloproliferative Disorder Symptomatic anemianificant anemia. Less SOB and dyspneic however. To give additional packed cells . Last Vital Signs Temp Pulse Resp BP Pulse Ox 97.9 F 77 18 119/61 97 01/15/19 18:00 01/15/19 18:00 01/15/19 18:00 01/15/19 18:00 01/15/19 10:00 HEENT: VIVIAN, EOM Intact Oropharynx: No thrush, No mucositis Cor: RSR, systolic murmur, No gallops Lungs: Clear to P&A Abd: Soft, Normal bowel sounds, hepatosplenomegaly Ext:No significant edema Skin: No rashes, Integument intact CBC, BMP 01/15/19 18:00 01/14/19 13:26 Impression: Myeloproliferative disorder Symptomatic anemia S/P 3 units of packed cells Will give additional packed cells.
[2019-01-15] MEDS ORDERED: SODIUM POLYSTYRENE SULFONATE 15 GM/60 ML BOTTLE PO ONE (20:40)
[2019-01-16 01:51] VITALS: BMI 19.1
[2019-01-16 08:15] LABS: BASO % 4.3 % (0-2.0); EOS % 3.6 % (0-4.5); HEMATOCRIT 26.3 % (35.4-49); LYMPH % 18.7 % (8-40); MCH 31.8 pg (25.7-33.7); MCHC 34.4 g/dl (32.0-35.9); MEAN CELL VOLUME 92.3 fl (80-96); MEAN PLT VOLUME 11.2 fl (7.5-11.1); MONO % 4.9 % (3.8-10.2); NEUT % 68.5 % (42.8-82.8); RBC 2.85 M/mm3 (4.00-5.60); RDW 14.2 % (11.9-15.9)
[2019-01-16] MEDS ORDERED: TAMSULOSIN HCL 0.4 MG CAP PO SCH (08:30)
[2019-01-16] MEDS ORDERED: PT OWN MED DRAWER 7, Y5N ONE (08:59)
[2019-01-16 09:24] LABS: BILIRUBIN,TOTAL 2.3 mg/dL (0.2-1); BLOOD UREA NITROGEN 20.3 mg/dL (7-18); CALCIUM 8.6 mg/dL (8.5-10.1); CREATININE 0.6 mg/dL (0.55-1.3); POTASSIUM 4.6 mmol/L (3.5-5.1); TOT PROT 5.9 g/dl (6.4-8.2)
[2019-01-16 09:44] LABS: PLATELET COUNT 187 K/MM3 (134-434)
[2019-01-16] MEDS ORDERED: amLODIPine BESYLATE 5 MG TABLET (FP) PO SCH (10:00)
[2019-01-16] MEDS ORDERED: HYDROXYUREA 500 MG CAPSULE PO SCH (10:00)
[2019-01-16] MEDS ORDERED: CALCIUM 500MG/VIT-D 200 UNITS COMBO TABLET (FP) PO SCH (10:00)
[2019-01-16] MEDS ORDERED: SOTALOL HCL 80 MG TABLET (FP) PO SCH (10:00)
[2019-01-16] MEDS ORDERED: ASPIRIN COATED 81 MG TABLET.EC PO SCH (10:00)
[2019-01-16] MEDS ORDERED: ANAGRELIDE HCL 1 MG PO SCH (10:00)
--- NOTE | 2019-01-16 17:39 | PN ---
Progress Note (short form) - Note Progress Note: Received 4 units of packed cells. Hb increased to 9.0 , Ht-26.3% For discharge and office follow up.
[2019-01-16 18:12] VITALS: BP 145/67; PULSE 83; TEMP 98
== END 2019-01-16 19:30 | disposition home or self-care (01) | DRG 842 ==
LOC: JONCBLOOD 13:00 → J5S 13:09 → JONCBLOOD 01-15 18:58 → J5S 01-15 19:00 → JONCBLOOD 01-16 01:12 → J5S 01-16 01:12
PROVIDERS: ADMIT Internal Medicine Hematology & Oncology; ATTEND Internal Medicine Hematology & Oncology
PROC: 30233N1 Transfusion of Nonautologous Red Blood Cells into Peripheral Vein, Percutaneous Approach (ICD-10-PCS; principal; 2019-01-14)
DX: C94.6 Myelodysplastic disease, not elsewhere classified (principal); D64.9 Anemia, unspecified; I10 Essential (primary) hypertension; J44.9 Chronic obstructive pulmonary disease, unspecified; I48.91 Unspecified atrial fibrillation
CPT/HCPCS: 36415; 36430; 36511; 80053; 85025; 85027; 86850; 86900; 86901; 86922; P9038; P9058

== ENCOUNTER 2019-01-31 08:18 | Day surgery (SDC) | payer OTHER, BC ==
[2019-01-31 08:58] LABS: HEMATOCRIT 21.3 % (35.4-49); MCHC 32.7 g/dl (32.0-35.9); MEAN CELL VOLUME 94.8 fl (80-96); MEAN PLT VOLUME 10.9 fl (7.5-11.1); PLATELET COUNT 282 K/MM3 (134-434); RBC 2.25 M/mm3 (4.00-5.60); RDW 15.3 % (11.9-15.9); WHITE BLOOD COUNT 8.6 K/mm3 (4.0-10.0)
[2019-01-31 09:20] LABS: ALBUMIN 3.9 g/dl (3.4-5.0); BILIRUBIN,TOTAL 0.9 mg/dL (0.2-1); CALCIUM 8.8 mg/dL (8.5-10.1); CREATININE 0.6 mg/dL (0.55-1.3); POTASSIUM 4.8 mmol/L (3.5-5.1); TOT PROT 5.9 g/dl (6.4-8.2)
[2019-01-31 09:59] LABS: BILIRUBIN,DIRECT 0.3 mg/dL (0.0-0.2)
[2019-01-31] MEDS ORDERED: FUROSEMIDE 40 MG/4 ML INJECTABLE VIAL IVPUSH SCH (10:00)
--- NOTE | 2019-01-31 22:36 | HP ---
Satellite [facility] - Chief Complaint Chief Complaint: Here for elective blood transfusion. Denies SOB/CP/any other symptoms History Source: Patient - Past Medical History Allergies/Adverse Reactions: Allergies Allergy/AdvReac Type Severity Reaction Status Date / Time No Known Allergies Allergy Verified 09/07/18 14:05 Cardiovascular: Yes: AFIB, HTN Pulmonary: Yes: COPD Heme/Onc: Yes: Myeloproliferative Synd, Other (Thrombocytosis) - Current Medications Current Medications: Home Medications Medication Instructions Recorded Tamsulosin HCl 0.4 mg PO DAILY 08/31/12 Aspirin [ASA -] 81 mg PO DAILY 04/11/14 Calcium Carbonate/Vitamin D3 2 tab PO DAILY 09/19/17 [Calcium 500-Vit D3 400 Tablet] Amlodipine Besylate [Norvasc -] 5 mg PO DAILY #30 tablet 09/27/18 Anagrelide HCl [Agrylin] 1 mg PO BID #60 capsule 09/27/18 Diltiazem Cd [Cardizem Cd -] 120 mg PO DAILY #30 cap.cd.24h 09/27/18 Hydroxyurea [Hydrea 500Mg Capsule 500 mg PO Q12H #60 capsule 09/27/18 -] Sotalol HCl [Betapace -] 80 mg PO BID@0800,2000 #60 tablet 09/27/18 Satellite Physical Exam - Physical Examination Vital Signs: Vital Signs Period Temp Pulse Resp BP Sys/Paredes Pulse Ox Last 24 Hr 98.3 F-98.5 F 68-74 18-18 120-139/55-55 General Appearance: Alert & Oriented x3 Lung: Clear to auscultation Heart: Regular rate & rhythm, Normal S1, Normal S2 Abdomen: Soft, No tenderness Extremities: No edema Neurological: Intact Satellite Impression/Plan - Impression/Plan Impression: MPD/MDS. Worsening transfusion requirement and performance status. For blood transfusion
[2019-01-31 23:34] LABS: BASO % 3.4 % (0-2.0); HEMATOCRIT 22.6 % (35.4-49); HEMOGLOBIN 7.7 GM/dL (11.7-16.9); MCH 31.3 pg (25.7-33.7); MCHC 33.9 g/dl (32.0-35.9); MEAN CELL VOLUME 92.2 fl (80-96); MEAN PLT VOLUME 10.3 fl (7.5-11.1); MONO % 3.7 % (3.8-10.2); NEUT % 73.9 % (42.8-82.8); PLATELET COUNT 235 K/MM3 (134-434); RBC 2.46 M/mm3 (4.00-5.60); RDW 14.3 % (11.9-15.9); WHITE BLOOD COUNT 8.1 K/mm3 (4.0-10.0)
[2019-02-01 10:23] VITALS: BP 124/53; PULSE 75; TEMP 98.4
== END 2019-02-01 10:49 | disposition home or self-care (01) ==
LOC: JBLOOD 08:18 → J5S 08:21 → JBLOOD 02-01 10:49
PROVIDERS: ATTEND Internal Medicine Hematology & Oncology
PROC: 30233N1 Transfusion of Nonautologous Red Blood Cells into Peripheral Vein, Percutaneous Approach (ICD-10-PCS; principal; 2019-01-31)
DX: D46.9 Myelodysplastic syndrome, unspecified (principal)
CPT/HCPCS: 36415; 36430; 36511; 80053; 80076; 85025; 85027; 86850; 86900; 86901; 86922; P9038; P9058

== ENCOUNTER 2019-02-14 08:15 | Day surgery (SDC) | payer OTHER, BC ==
[2019-02-14 09:48] LABS: HEMATOCRIT 18.5 % (35.4-49); MCH 31.6 pg (25.7-33.7); MCHC 33.6 g/dl (32.0-35.9); MEAN CELL VOLUME 93.9 fl (80-96); MEAN PLT VOLUME 10.9 fl (7.5-11.1); PLATELET COUNT 230 K/MM3 (134-434); RBC 1.97 M/mm3 (4.00-5.60); RDW 14.8 % (11.9-15.9); WHITE BLOOD COUNT 6.6 K/mm3 (4.0-10.0)
[2019-02-14 10:19] VITALS: BMI 19.5
[2019-02-14 10:19] LABS: ALBUMIN 3.9 g/dl (3.4-5.0); BILIRUBIN,DIRECT 0.4 mg/dL (0.0-0.2); BILIRUBIN,TOTAL 1.1 mg/dL (0.2-1); BLOOD UREA NITROGEN 14.9 mg/dL (7-18); CALCIUM 8.7 mg/dL (8.5-10.1); CREATININE 0.5 mg/dL (0.55-1.3); POTASSIUM 4.5 mmol/L (3.5-5.1); TOT PROT 5.8 g/dl (6.4-8.2)
[2019-02-14 10:22] LABS: HEMOGLOBIN 6.2 GM/dL (11.7-16.9)
[2019-02-14] MEDS ORDERED: FUROSEMIDE 40 MG/4 ML INJECTABLE VIAL IVPUSH ONE (11:00)
--- NOTE | 2019-02-14 21:43 | HP ---
Satellite [facility] - Chief Complaint Chief Complaint: PAtient seen and examined. Denies any complaints History Source: Patient - Past Medical History Allergies/Adverse Reactions: Allergies Allergy/AdvReac Type Severity Reaction Status Date / Time No Known Allergies Allergy Verified 09/07/18 14:05 Cardiovascular: Yes: AFIB, HTN Pulmonary: Yes: COPD Heme/Onc: Yes: Myeloproliferative Synd, Other (Thrombocytosis) - Current Medications Current Medications: Home Medications Medication Instructions Recorded Tamsulosin HCl 0.4 mg PO DAILY 08/31/12 Aspirin [ASA -] 81 mg PO DAILY 04/11/14 Calcium Carbonate/Vitamin D3 2 tab PO DAILY 09/19/17 [Calcium 500-Vit D3 400 Tablet] Amlodipine Besylate [Norvasc -] 5 mg PO DAILY #30 tablet 09/27/18 Anagrelide HCl [Agrylin] 1 mg PO BID #60 capsule 09/27/18 Diltiazem Cd [Cardizem Cd -] 120 mg PO DAILY #30 cap.cd.24h 09/27/18 Hydroxyurea [Hydrea 500Mg Capsule 500 mg PO Q12H #60 capsule 09/27/18 -] Sotalol HCl [Betapace -] 80 mg PO BID@0800,2000 #60 tablet 09/27/18 Satellite Physical Exam - Physical Examination Vital Signs: Vital Signs Period Temp Pulse Resp BP Sys/Paredes Pulse Ox Last 24 Hr 98.3 F-98.4 F 72-79 16-18 121-140/51-60 General Appearance: Alert & Oriented x3 Lung: Clear to auscultation Heart: Regular rate & rhythm, Normal S1, Normal S2 Abdomen: Soft, No tenderness Extremities: No edema Neurological: Intact Satellite Impression/Plan - Impression/Plan Impression: 73 y/o patient wi MPD. For elective blood transfusion
[2019-02-14 23:57] LABS: BASO % 3.5 % (0-2.0); EOS % 2.5 % (0-4.5); HEMOGLOBIN 7.4 GM/dL (11.7-16.9); LYMPH % 15.9 % (8-40); MCH 30.2 pg (25.7-33.7); MCHC 33.5 g/dl (32.0-35.9); MEAN CELL VOLUME 90.1 fl (80-96); MEAN PLT VOLUME 10.4 fl (7.5-11.1); NEUT % 73.1 % (42.8-82.8); PLATELET COUNT 210 K/MM3 (134-434); RBC 2.44 M/mm3 (4.00-5.60); WHITE BLOOD COUNT 6.6 K/mm3 (4.0-10.0)
[2019-02-15 09:24] VITALS: BP 125/51; PULSE 79; TEMP 99
== END 2019-02-15 10:51 | disposition home or self-care (01) ==
LOC: J7W 08:15 → JONCBLOOD 08:15
PROVIDERS: ATTEND Internal Medicine Hematology & Oncology
PROC: 30233N1 Transfusion of Nonautologous Red Blood Cells into Peripheral Vein, Percutaneous Approach (ICD-10-PCS; principal; 2019-02-14)
DX: D46.9 Myelodysplastic syndrome, unspecified (principal)
CPT/HCPCS: 36415; 36430; 36511; 80048; 80076; 85025; 85027; 86850; 86900; 86901; 86922; P9038; P9058

== ENCOUNTER 2019-03-07 08:41 | Day surgery (SDC) | payer OTHER, BC ==
[2019-03-07 10:15] LABS: HEMATOCRIT 19.6 % (35.4-49); MCH 30.6 pg (25.7-33.7); MCHC 33.3 g/dl (32.0-35.9); MEAN CELL VOLUME 92.1 fl (80-96); MEAN PLT VOLUME 10.8 fl (7.5-11.1); PLATELET COUNT 292 K/MM3 (134-434); RBC 2.12 M/mm3 (4.00-5.60); RDW 15.8 % (11.9-15.9); WHITE BLOOD COUNT 9.3 K/mm3 (4.0-10.0)
[2019-03-07 10:29] LABS: HEMOGLOBIN 6.5 GM/dL (11.7-16.9)
[2019-03-07 10:48] LABS: ALBUMIN 4.3 g/dl (3.4-5.0); BILIRUBIN,DIRECT 0.3 mg/dL (0.0-0.2); BILIRUBIN,TOTAL 1.3 mg/dL (0.2-1); BLOOD UREA NITROGEN 18.2 mg/dL (7-18); CALCIUM 9.3 mg/dL (8.5-10.1); CREATININE 0.6 mg/dL (0.55-1.3); POTASSIUM 4.7 mmol/L (3.5-5.1); TOT PROT 6.1 g/dl (6.4-8.2)
[2019-03-07] MEDS ORDERED: FUROSEMIDE 40 MG/4 ML INJECTABLE VIAL IVPUSH ONE ×2 (14:00→18:30)
[2019-03-07] MEDS ORDERED: PORTA CATH FLUSH 10 ML IVPUSH PRN (14:21)
--- NOTE | 2019-03-07 21:52 | HP ---
Satellite H - Chief Complaint Chief Complaint: Elective admitted for transfusion. No fever/chills/cough/SOB/ gi losses History Source: Patient - Past Medical History Allergies/Adverse Reactions: Allergies Allergy/AdvReac Type Severity Reaction Status Date / Time No Known Allergies Allergy Verified 09/07/18 14:05 Cardiovascular: Yes: AFIB, HTN Pulmonary: Yes: COPD Heme/Onc: Yes: Myeloproliferative Synd, Other (Thrombocytosis) - Current Medications Current Medications: Home Medications Medication Instructions Recorded Tamsulosin HCl 0.4 mg PO DAILY 08/31/12 Aspirin [ASA -] 81 mg PO DAILY 04/11/14 Calcium Carbonate/Vitamin D3 2 tab PO DAILY 09/19/17 [Calcium 500-Vit D3 400 Tablet] Amlodipine Besylate [Norvasc -] 5 mg PO DAILY #30 tablet 09/27/18 Anagrelide HCl [Agrylin] 1 mg PO BID #60 capsule 09/27/18 Diltiazem Cd [Cardizem Cd -] 120 mg PO DAILY #30 cap.cd.24h 09/27/18 Hydroxyurea [Hydrea 500Mg Capsule 500 mg PO Q12H #60 capsule 09/27/18 -] Sotalol HCl [Betapace -] 80 mg PO BID@0800,2000 #60 tablet 09/27/18 Satellite Physical Exam - Physical Examination Vital Signs: Vital Signs Period Temp Pulse Resp BP Sys/Paredes Pulse Ox Last 24 Hr 98.4 F-99.0 F 80-80 18-18 100-146/48-66 General Appearance: Well Developed Lung: Clear to auscultation, Normal air movement Heart: Regular rate & rhythm, Normal S1, Normal S2 Abdomen: Soft, No tenderness Extremities: No edema Neurological: Intact Satellite Impression/Plan - Impression/Plan Impression: 73 y/o patient with MDS-MPD. Elective blood transfusion
[2019-03-08 09:27] VITALS: BP 125/57; PULSE 80; TEMP 98.4
== END 2019-03-08 09:49 | disposition home or self-care (01) ==
LOC: JONCBLOOD 08:41 → J5S 08:42 → JONCBLOOD 03-08 09:49
PROVIDERS: ATTEND Internal Medicine Hematology & Oncology
PROC: 30233N1 Transfusion of Nonautologous Red Blood Cells into Peripheral Vein, Percutaneous Approach (ICD-10-PCS; principal; 2019-03-07)
DX: D46.9 Myelodysplastic syndrome, unspecified (principal)
CPT/HCPCS: 36415; 36430; 36511; 80048; 80076; 85027; 86850; 86900; 86901; 86922; P9038; P9058

== ENCOUNTER 2019-03-22 08:43 | Day surgery (SDC) | payer OTHER, BC ==
[2019-03-22 10:27] LABS: HEMATOCRIT 19.6 % (35.4-49); MCH 30.5 pg (25.7-33.7); MCHC 32.9 g/dl (32.0-35.9); MEAN CELL VOLUME 92.7 fl (80-96); MEAN PLT VOLUME 11.1 fl (7.5-11.1); PLATELET COUNT 239 K/MM3 (134-434); RBC 2.11 M/mm3 (4.00-5.60); RDW 16.3 % (11.9-15.9); WHITE BLOOD COUNT 9.2 K/mm3 (4.0-10.0)
[2019-03-22 10:36] LABS: HEMOGLOBIN 6.4 GM/dL (11.7-16.9)
[2019-03-22 10:40] LABS: INR 1.37 (0.83-1.09); PROTHROMBIN TIME (PATIENT) 16.2 SEC (9.7-13.0)
[2019-03-22 11:02] LABS: ALBUMIN 3.8 g/dl (3.4-5.0); BLOOD UREA NITROGEN 15.9 mg/dL (7-18); CALCIUM 8.6 mg/dL (8.5-10.1); CREATININE 0.6 mg/dL (0.55-1.3); POTASSIUM 4.5 mmol/L (3.5-5.1); TOT PROT 5.8 g/dl (6.4-8.2)
--- NOTE | 2019-03-22 14:16 | HP ---
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 - Past Medical History Cardiovascular: Yes: AFIB, HTN Pulmonary: Yes: COPD Heme/Onc: Yes: Myeloproliferative Synd, Other (Thrombocytosis) - Past Surgical History Past Surgical History: Yes: Hernia Repair - Smoking History Smoking history: Former smoker Have you smoked in the past 12 months: No Aproximately how many cigarettes per day: 0 If you are a former smoker, when did you quit?: 1 YR - Alcohol/Substance Use Hx Alcohol Use: Yes Home Medications - Allergies Allergies/Adverse Reactions: Allergies Allergy/AdvReac Type Severity Reaction Status Date / Time No Known Allergies Allergy Verified 09/07/18 14:05 - Home Medications Home Medications: Ambulatory Orders Tamsulosin HCl 0.4 mg PO DAILY 08/31/12 Aspirin [ASA -] 81 mg PO DAILY 04/11/14 Calcium Carbonate/Vitamin D3 [Calcium 500-Vit D3 400 Tablet] 2 tab PO DAILY Amlodipine Besylate [Norvasc -] 5 mg PO DAILY #30 tablet 09/27/18 Anagrelide HCl [Agrylin] 1 mg PO BID #60 capsule 09/27/18 Diltiazem Cd [Cardizem Cd -] 120 mg PO DAILY #30 cap.cd.24h 09/27/18 Hydroxyurea [Hydrea 500Mg Capsule -] 500 mg PO Q12H #60 capsule 09/27/18 Sotalol HCl [Betapace -] 80 mg PO BID@0800,2000 #60 tablet 09/27/18 Review of Systems - Review of Systems Constitutional: reports: Weakness. denies: Chills, Loss of Appetite, Night Sweats Eyes: denies: Blurred Vision, Double Vision HENT: denies: Difficult Swallowing, Throat Pain Neck: denies: Stiffness, Tenderness Cardiovascular: denies: Chest Pain, Shortness of Breath Respiratory: denies: SOB on Exertion Gastrointestinal: denies: Abdominal Pain, Nausea, Vomiting Genitourinary: denies: Burning, Dysuria, Frequency Breasts: denies: Skin Changes Integumentary: denies: Eczema, Erythema Neurological: reports: No Symptoms Hematology/Lymphatic: denies: Excessive Bleeding, Swollen Glands Psychiatric: reports: No Symptoms Physical Examination Vital Signs: Vital Signs Temperature 97.9 F 03/22/19 12:54 Pulse Rate 72 03/22/19 12:54 Respiratory Rate 20 03/22/19 12:54 Blood Pressure 116/54 L 03/22/19 12:54 O2 Sat by Pulse Oximetry (%) Constitutional: Yes: No Distress Eyes: Yes: PERRL HENT: Yes: Normocephalic. No: Hoarseness, Pharyngeal Erythema Neck: No: Lymphadenopathy, Tenderness, Thyromegaly Cardiovascular: Yes: Regular Rate and Rhythm Gastrointestinal: Yes: Hepatomegaly, Splenomegaly Renal/: No: CVA Tenderness - Left, CVA Tenderness - Right Musculoskeletal: No: Back Pain, Joint Swelling Extremities: Yes: WNL Edema: No Integumentary: Yes: WNL Neurological: Yes: WNL ...Motor Strength: WNL Psychiatric: Yes: WNL Labs: CBC, BMP 03/22/19 10:10 03/22/19 10:10 Problem List - Problems (1) MDS (myelodysplastic syndrome) Assessment/Plan: Prior multiple treatment regimens . Symptomatic anemia. Transfusion dependent Not responsive to growth factors . For transfusion of packed cells/. Would give 2 units of packed cells. Check Hb/Hct. If Hct< 25%, would give 3rd unit of packed cells. Code(s): D46.9 - MYELODYSPLASTIC SYNDROME, UNSPECIFIED (2) Anemia Assessment/Plan: Secondary to MDS/MPD For transfusion therapy. Code(s): D64.9 - ANEMIA, UNSPECIFIED Qualifiers:
[2019-03-22] MEDS ORDERED: FUROSEMIDE 40 MG/4 ML INJECTABLE VIAL IVPUSH ONE (17:00)
[2019-03-22] MEDS ORDERED: PORTA CATH FLUSH 10 ML IVPUSH PRN (22:12)
[2019-03-22 23:23] LABS: HEMATOCRIT 24.6 % (35.4-49); HEMOGLOBIN 7.9 GM/dL (11.7-16.9); MCH 29.8 pg (25.7-33.7); MCHC 32.3 g/dl (32.0-35.9); MEAN CELL VOLUME 92.4 fl (80-96); RBC 2.66 M/mm3 (4.00-5.60); RDW 15.4 % (11.9-15.9); WHITE BLOOD COUNT 10.7 K/mm3 (4.0-10.0)
[2019-03-23 01:48] LABS: EOS % 2.8 % (0-4.5); LYMPH % 15.6 % (8-40); MEAN PLT VOLUME 10.9 fl (7.5-11.1); MONO % 3.5 % (3.8-10.2); NEUT % 75.1 % (42.8-82.8); PLATELET COUNT 227 K/MM3 (134-434)
[2019-03-23 02:04] LABS: ANISOCYTOSIS 3+; MACROCYTOSIS 0; PLATELET ESTIMATE NORMAL; TARGET CELLS 2+; TEAR DROP CELLS 1+
[2019-03-23 07:50] LABS: BASO % 3.8 % (0-2.0); EOS % 1.8 % (0-4.5); LYMPH % 15.5 % (8-40); MCH 31.3 pg (25.7-33.7); MCHC 34.5 g/dl (32.0-35.9); MEAN CELL VOLUME 90.7 fl (80-96); MEAN PLT VOLUME 11.2 fl (7.5-11.1); MONO % 3.6 % (3.8-10.2); NEUT % 75.3 % (42.8-82.8); RBC 2.86 M/mm3 (4.00-5.60); RDW 14.8 % (11.9-15.9); WHITE BLOOD COUNT 9.3 K/mm3 (4.0-10.0)
[2019-03-23 09:13] LABS: ALBUMIN 3.6 g/dl (3.4-5.0); BILIRUBIN,TOTAL 1.7 mg/dL (0.2-1); BLOOD UREA NITROGEN 14.6 mg/dL (7-18); CALCIUM 8.7 mg/dL (8.5-10.1); CREATININE 0.6 mg/dL (0.55-1.3); POTASSIUM 4.6 mmol/L (3.5-5.1); TOT PROT 5.4 g/dl (6.4-8.2)
[2019-03-23 13:11] LABS: PLATELET COUNT 209 K/MM3 (134-434)
[2019-03-23 13:28] VITALS: BP 136/57; PULSE 77; TEMP 98.2
== END 2019-03-23 13:21 | disposition home or self-care (01) ==
LOC: J7W 08:43 → JONCBLOOD 08:43
PROVIDERS: ATTEND Internal Medicine Hematology & Oncology
PROC: 30233N1 Transfusion of Nonautologous Red Blood Cells into Peripheral Vein, Percutaneous Approach (ICD-10-PCS; principal; 2019-03-22)
DX: D46.9 Myelodysplastic syndrome, unspecified (principal)
CPT/HCPCS: 36415; 36430; 36511; 80053; 85025; 85027; 85610; 86850; 86900; 86901; 86922; P9038; P9058

== ENCOUNTER 2019-04-02 10:24 | Emergency (ER) | payer OTHER, BC ==
[2019-04-02 10:36] VITALS: TEMP 97.7
[2019-04-02 11:36] VITALS: BP 124/58; PULSE 67
--- NOTE | 2019-04-02 11:42 | PDOC ---
*Physical Exam - Vital Signs Last Vital Signs Temp Pulse Resp BP Pulse Ox 97.7 F 67 18 124/58 L 97 04/02/19 10:30 04/02/19 11:35 04/02/19 10:30 04/02/19 11:35 04/02/19 10:30 ED Treatment Course - LABORATORY CBC & Chemistry Diagram: 04/02/19 12:03 04/02/19 12:03 Medical Decision Making - Medical Decision Making 04/02/19 11:41 Patient seen as pre-attending w/Dr. Mcmahan (PGY-2) 73 year old male with a PMH of Paroxysmal AFib, HTN, MDS, CAD (s/p carotid endarectomy 09/2018) presents with 2 day h/o R ankle pain. States pain started Monday morning and is localized to calcaneal tendon and R lateral malleolus. Will obtain ankle XR ([facility] rules); also consider Achilles Tenonditis ( less likely rupture as patient ambulatory, plantar/dorsiflexion intact), also consider gout, low clinical suspicion for septic joint. Tylenol for pain control. Will contact Heme/Onc pending labs. CRP elevated, other labs unremarkable Dr. Mcmahan discussed c/w Dr. Johns, patient can f/u as outpatient, suggests referral to rheumatology. *DC/Admit/Observation/Transfer Diagnosis at time of Disposition: Achilles tendonitis - Discharge Dispostion Disposition: HOME Condition at time of disposition: Stable - Referrals Referrals: Tomas Hope MD [Staff Physician] - Alfredito Ortega [Primary Care Provider] - - Patient Instructions Printed Discharge Instructions: DI for Tendinitis Additional Instructions: You were seen in the ED for R heel pain. You were evaluated with labwork and imaging. Your results were unremarkable. There does not appear to be an acute need for immediate hospitalization. You are advised to follow up with your Primary Care Physician within 1 week. You were given a referral to Dr. Hope, Rheumatology and advised to follow up within 1 week. Take over the counter Tylenol for pain Return to the ED immediately if you experience worsening pain, inability to walk , warmth, swelling or redness to the ankle or fevers. - Post Discharge Activity
[2019-04-02] MEDS ORDERED: ACETAMINOPHEN 500 MG TABLET (FP) PO ONE (11:47)
--- NOTE | 2019-04-02 11:48 | PDOC ---
Attending Attestation - Resident Resident Name: Tamika Mcmahan - ED Attending Attestation I have performed the following: I have examined & evaluated the patient, The case was reviewed & discussed with the resident, I agree w/resident's findings & plan, Exceptions are as noted
--- NOTE | 2019-04-02 12:01 | PDOC ---
History of Present Illness - General Chief Complaint: Pain Stated Complaint: RT ANKLE PAIN Time Seen by Provider: 04/02/19 10:46 - History of Present Illness Initial Comments: 04/02/19 12:12 73 yr old man with a hx of HTN, MPD, hx of paroxysmal Afib, hemachromatosis, left ventricular diastolic dysfunction, recurring anemia, thrombocytopenia and critical carotid artery stenosis who presents with 3 days of R ankle and achilles pain with swelling. He denies any trauma, denies any floroquilones use , denies any fevers, n/v/d/c, dysuria, hematuria. Has no other complaints. Follows with Dr. Johns and Dr. Yashira MOORE GENERAL/CONSTITUTIONAL: No fever or chills. No weakness. HEAD, EYES, EARS, NOSE AND THROAT: No change in vision. No ear pain or discharge. No sore throat. CARDIOVASCULAR: No chest pain or shortness of breath RESPIRATORY: No cough, wheezing, or hemoptysis. GASTROINTESTINAL: No nausea, vomiting, diarrhea or constipation. GENITOURINARY: No dysuria, frequency, or change in urination. MUSCULOSKELETAL: See HPI. No neck or back pain. SKIN: No rash NEUROLOGIC: No headache, vertigo, loss of consciousness, or change in strength/ sensation. PE GENERAL: Awake, alert, and fully oriented, in no acute distress HEAD: No signs of trauma, normocephalic, atraumatic EYES: EOMI, sclera anicteric, conjunctiva clear ENT: oropharynx clear without exudates. Moist mucosa NECK: Normal ROM, supple LUNGS: No distress, speaks full sentences, clear to auscultation bilaterally HEART: Regular rate and rhythm, normal S1 and S2, no murmurs, rubs or gallops, peripheral pulses normal and equal bilaterally. ABDOMEN: Soft, nontender, normoactive bowel sounds. No guarding, no rebound. No masses EXTREMITIES : R ankle, slight edema, tenderness to achilles tendon, pain with dorsiflexion, nv intact NEUROLOGICAL: Cranial nerves II through XII grossly intact. Normal speech, normal gait, no focal sensorimotor deficits SKIN: Warm, Dry, normal turgor, no rashes or lesions noted MDM DDX including but not limited to: achilles tendonitis, r/o fracture less likely gout and infectious as joint not significantly tender or warm W/U: - cbc, cmp, coags, esr, crp TX: - tylenol ED Course: Will reach out to Dr. Johns and Dr. Ac D/C with referral to Jayy Mcmahan, PGY2 Emergency Medicine Past History - Past Medical History Allergies/Adverse Reactions: Allergies Allergy/AdvReac Type Severity Reaction Status Date / Time No Known Allergies Allergy Verified 04/02/19 10:36 Home Medications: Ambulatory Orders Tamsulosin HCl 0.4 mg PO DAILY 08/31/12 Aspirin [ASA -] 81 mg PO DAILY 04/11/14 Amlodipine Besylate [Norvasc -] 5 mg PO DAILY #30 tablet 09/27/18 Hydroxyurea [Hydrea 500Mg Capsule -] 500 mg PO Q12H #60 capsule 09/27/18 Sotalol HCl [Betapace -] 80 mg PO BID@0800,2000 #60 tablet 09/27/18 Anagrelide HCl [Agrylin] 2 mg PO DAILY 04/02/19 Omeprazole 20 mg PO DAILY 04/02/19 Anemia: Yes Cancer: Yes (Blood (MDS)) Cardiac Disorders: Yes COPD: No DVT: No GI Disorders: Yes Disorders: Yes HTN: Yes - Surgical History Abdominal Surgery: Yes (RT INGUINAL HERNIA) Appendectomy: No Cardiac Surgery: No Cholecystectomy: No Lung Surgery: No Neurologic Surgery: No Orthopedic Surgery: No - Suicide/Smoking/Psychosocial Hx Smoking Status: Yes Smoking History: Never smoked Have you smoked in the past 12 months: No Number of Cigarettes Smoked Daily: 0 If you are a former smoker, when did you quit?: 1 YR 'Breaking Loose' booklet given: 08/17/16 Hx Alcohol Use: Yes Drug/Substance Use Hx: No Substance Use Type: None Hx Substance Use Treatment: No *Physical Exam - Vital Signs Last Vital Signs Temp Pulse Resp BP Pulse Ox 97.7 F 67 18 124/58 L 97 04/02/19 10:30 04/02/19 11:35 04/02/19 10:30 04/02/19 11:35 04/02/19 10:30 ED Treatment Course - LABORATORY CBC & Chemistry Diagram: 04/02/19 12:03 04/02/19 12:03 *DC/Admit/Observation/Transfer Diagnosis at time of Disposition: Achilles tendonitis - Discharge Dispostion Disposition: HOME Condition at time of disposition: Stable Decision to Admit order: No - Referrals Referrals: Alfredito Ortega [Primary Care Provider] - Tomas Hope MD [Staff Physician] - - Patient Instructions Printed Discharge Instructions: DI for Tendinitis Additional Instructions: You were seen in the ED for R heel pain. You were evaluated with labwork and imaging. Your results were unremarkable. There does not appear to be an acute need for immediate hospitalization. You are advised to follow up with your Primary Care Physician within 1 week. You were given a referral to Dr. Hope, Rheumatology and advised to follow up within 1 week. Take over the counter Tylenol for pain Return to the ED immediately if you experience worsening pain, inability to walk , warmth, swelling or redness to the ankle or fevers. - Post Discharge Activity
[2019-04-02 12:48] LABS: BASO % 4.5 % (0-2.0); EOS % 2.2 % (0-4.5); HEMATOCRIT 24.1 % (35.4-49); HEMOGLOBIN 7.8 GM/dL (11.7-16.9); LYMPH % 10.4 % (8-40); MCH 30.6 pg (25.7-33.7); MCHC 32.5 g/dl (32.0-35.9); MEAN CELL VOLUME 94.1 fl (80-96); MEAN PLT VOLUME 9.5 fl (7.5-11.1); MONO % 4.4 % (3.8-10.2); NEUT % 78.5 % (42.8-82.8); PLATELET COUNT 206 K/MM3 (134-434); RBC 2.56 M/mm3 (4.00-5.60); RDW 16.2 % (11.9-15.9); WHITE BLOOD COUNT 8.7 K/mm3 (4.0-10.0)
[2019-04-02 12:59] LABS: INR 1.31 (0.83-1.09); PROTHROMBIN TIME (PATIENT) 15.5 SEC (9.7-13.0)
[2019-04-02 13:02] LABS: ACTIVATED PTT 36.6 SECONDS (25.2-36.5)
--- NOTE | 2019-04-02 13:09 | PDOC ---
Documentation entered by Jb Ugarte SCRIBE, acting as scribe for Beth Gaona MD. Beth Gaona MD: This documentation has been prepared by the Shanel reese Renju, SCRIBE, under my direction and personally reviewed by me in its entirety. I confirm that the documentation accurately reflects all work, treatment, procedures, and medical decision making performed by me. Attending Attestation - Resident Resident Name: Tamika Mcmahan - ED Attending Attestation I have performed the following: I have examined & evaluated the patient, The case was reviewed & discussed with the resident, I agree w/resident's findings & plan, Exceptions are as noted - HPI HPI: 04/02/19 12:52 The patient is a 73 year old man with a past medical history of paroxysmal Afib , HTN, MPD, left ventricular diastolic dysfunction, hemachromatosis, recurring anemia, thrombocytopenia and carotid artery stenosis who presents to the emergency department for evaluation of 3 days of worsening R ankle and achilles pain with swelling, exacerbated with flexion. He states he is unable to bear weight secondary to pain. Denies recent trauma. No recent medication change or use of antibiotics. No new exercises or new shoes. No hx of rheumatoid arthritis. He states he lives by himself at his home which does not have stairs , and notes he ambulates without any devices. Denies chest pain, shortness of breath, headache, and dizziness. Denies fevers, chills, nausea, vomiting, and any bowel/bladder problems. - Physicial Exam PE: 04/02/19 12:52 GENERAL: The patient is in no acute distress. HEAD: Normal with no signs of trauma. EYES: PERRLA, EOMI, sclera anicteric, conjunctiva clear. ENT: Ears normal, nares patent, oropharynx clear without exudates. Moist mucous membranes. NECK: Normal range of motion, supple without lymphadenopathy, JVD, or masses. LUNGS: Breath sounds equal, clear to auscultation bilaterally. No wheezes, and no crackles. HEART:(+)Systolic ejection murmur. Regular rate and rhythm. ABDOMEN: Soft, nontender, normoactive bowel sounds. No guarding, no rebound. No masses palpable. EXTREMITIES: (+)Tenderness at the Achilles tendon, no redness, worse with dorsiflexion, warm. No tenderness in foot or heel. NEUROLOGICAL: Cranial nerves II through XII grossly intact. Normal speech. No focal neurological deficits. MUSCULOSKELETAL: Back non-tender to palpation, no CVA tenderness SKIN: Warm, Dry, normal turgor, no rashes or lesions noted. - Medical Decision Making 04/02/19 13:05 73 yo M presenting with a complaint of Right achilles tendon pain No trauma No fevers or chills NO swelling No new medication (or antibiotics) Will do: Basic Labs, ESR, CRP (Eval for anemia, infection) Xray ankle Analgesia Will call ortho Will call Dr. Ac ReAssess 04/03/19 07:51 Laboratory Tests 04/02/19 04/02/19 12:03 12:03 WBC 8.7 Hgb 7.8 L Hct 24.1 L Plt Count 206 Basophils % 4.5 H BUN 18.6 H Creatinine 0.4 L Uric Acid 7.0 C-Reactive Protein 1.4 H Call placed to Dr Ac Pt is at his baseline She recommends follow up with Dr Hope Pt will be asked to take Tylenol/Motrin for pain control Monitor for achilles tendon rupture
[2019-04-02 13:18] LABS: ALBUMIN 3.6 g/dl (3.4-5.0); BILIRUBIN,TOTAL 0.8 mg/dL (0.2-1); BLOOD UREA NITROGEN 18.6 mg/dL (7-18); CREATININE 0.4 mg/dL (0.55-1.3); TOT PROT 5.6 g/dl (6.4-8.2)
[2019-04-02 14:25] LABS: ERYTHROCYTE SEDIMENTATION RATE 9 mm/hr (0-20)
== END 2019-04-02 15:15 | disposition home or self-care (01) ==
LOC: JER 10:24
DX: M76.61 Achilles tendinitis, right leg (principal); I48.0 Paroxysmal atrial fibrillation; I11.0 Hypertensive heart disease with heart failure; I50.30 Unspecified diastolic (congestive) heart failure; D69.6 Thrombocytopenia, unspecified; D64.9 Anemia, unspecified; D46.9 Myelodysplastic syndrome, unspecified; I65.29 Occlusion and stenosis of unspecified carotid artery
CPT/HCPCS: 36415; 73610-TC-RT-FY; 80053; 84550; 85025; 85610; 85651; 85730; 86140; 86850; 86900; 86901; 99282-25

== ENCOUNTER 2019-05-03 08:59 | Day surgery (SDC) | payer OTHER, BC ==
[2019-05-03 10:14] LABS: HEMATOCRIT 20.9 % (35.4-49); HEMOGLOBIN 6.6 GM/dL (11.7-16.9); MCH 30.2 pg (25.7-33.7); MCHC 31.7 g/dl (32.0-35.9); MEAN CELL VOLUME 95.1 fl (80-96); MEAN PLT VOLUME 10.7 fl (7.5-11.1); PLATELET COUNT 272 K/MM3 (134-434); RDW 26.4 % (11.9-15.9)
[2019-05-03 10:41] LABS: ALBUMIN 4.1 g/dl (3.4-5.0); BILIRUBIN,TOTAL 1.1 mg/dL (0.2-1); BLOOD UREA NITROGEN 15.3 mg/dL (7-18); CALCIUM 8.9 mg/dL (8.5-10.1); CREATININE 0.6 mg/dL (0.55-1.3); POTASSIUM 4.5 mmol/L (3.5-5.1); TOT PROT 5.9 g/dl (6.4-8.2)
--- NOTE | 2019-05-03 12:16 | HP ---
Admitting History and Physical - Past Medical History Cardiovascular: Yes: AFIB, HTN Pulmonary: Yes: COPD Heme/Onc: Yes: Myeloproliferative Synd, Other (Thrombocytosis) - Past Surgical History Past Surgical History: Yes: Hernia Repair - Smoking History Smoking history: Never smoked Have you smoked in the past 12 months: No Aproximately how many cigarettes per day: 0 If you are a former smoker, when did you quit?: 1 YR - Alcohol/Substance Use Hx Alcohol Use: Yes Home Medications - Allergies Allergies/Adverse Reactions: Allergies Allergy/AdvReac Type Severity Reaction Status Date / Time No Known Allergies Allergy Verified 04/02/19 10:36 - Home Medications Home Medications: Ambulatory Orders Tamsulosin HCl 0.4 mg PO DAILY 08/31/12 Aspirin [ASA -] 81 mg PO DAILY 04/11/14 Amlodipine Besylate [Norvasc -] 5 mg PO DAILY #30 tablet 09/27/18 Sotalol HCl [Betapace -] 80 mg PO BID@0800,2000 #60 tablet 09/27/18 Anagrelide HCl [Agrylin] 2 mg PO DAILY 04/02/19 Omeprazole 20 mg PO DAILY 04/02/19 Hydroxyurea [Hydrea 500Mg Capsule -] 500 mg PO ASDIR 05/03/19 Physical Examination Labs: CBC, BMP 05/03/19 09:40 05/03/19 09:40 Assessment/Plan Patient seen and examined MPD/MDS s/p multiple prior treatment regimens S/P carotid endarterectomy S/P bleeding post C.E. with re-exploration Recently transfusion dependent HEENT: VIVIAN, EOM Intact Oropharynx: No thrush, No mucositis Neck: Supple Cor: RSR, No murmurs, No gallops Lungs: Clear to P&A Abd: Soft, Normal bowel sounds, No organomegaly Ext:No significant edema Skin: No rashes, Integument intact CBC, BMP 05/03/19 09:40 05/03/19 09:40 Impression: Symptomatic anemia MPD/MDS Plan -transfusion therapy
[2019-05-03 14:10] VITALS: BP 127/49; PULSE 78; TEMP 97.7
[2019-05-03] MEDS ORDERED: PORTA CATH FLUSH 10 ML IVPUSH ONE (14:10)
== END 2019-05-03 20:45 | disposition home or self-care (01) ==
LOC: JONCBLOOD 08:59 → J7W 09:01 → JONCBLOOD 20:45
PROVIDERS: ATTEND Internal Medicine Hematology & Oncology
PROC: 30233N1 Transfusion of Nonautologous Red Blood Cells into Peripheral Vein, Percutaneous Approach (ICD-10-PCS; principal; 2019-05-03)
DX: D46.9 Myelodysplastic syndrome, unspecified (principal); D47.3 Essential (hemorrhagic) thrombocythemia; I10 Essential (primary) hypertension; I48.91 Unspecified atrial fibrillation; J44.9 Chronic obstructive pulmonary disease, unspecified
CPT/HCPCS: 36415; 36430; 36511; 80053; 85027; 86850; 86900; 86901; 86922; P9038; P9058

== ENCOUNTER 2019-05-28 08:38 | Inpatient (IN) | payer OTHER, BC ==
[2019-05-28] MEDS ORDERED: FUROSEMIDE 40 MG/4 ML INJECTABLE VIAL IVPUSH PRN (09:38)
[2019-05-28] MEDS ORDERED: ALTEPLASE 2 MG VIAL CVP ONE (11:00)
[2019-05-28 11:11] LABS: BASO % 3.4 % (0-2.0); EOS % 2.7 % (0-4.5); HEMATOCRIT 17.6 % (35.4-49); LYMPH % 17.4 % (8-40); MCH 30.2 pg (25.7-33.7); MEAN CELL VOLUME 94.4 fl (80-96); MEAN PLT VOLUME 10.8 fl (7.5-11.1); MONO % 2.7 % (3.8-10.2); NEUT % 73.8 % (42.8-82.8); PLATELET COUNT 276 K/MM3 (134-434); RBC 1.86 M/mm3 (4.00-5.60); RDW 28.3 % (11.9-15.9)
[2019-05-28 11:22] LABS: INR 1.43 (0.83-1.09); PROTHROMBIN TIME (PATIENT) 16.9 SEC (9.7-13.0)
[2019-05-28 11:34] LABS: HEMOGLOBIN 5.6 GM/dL (11.7-16.9)
[2019-05-28 11:44] LABS: ALBUMIN 3.5 g/dl (3.4-5.0); BLOOD UREA NITROGEN 13.4 mg/dL (7-18); CALCIUM 8.5 mg/dL (8.5-10.1); CREATININE 0.7 mg/dL (0.55-1.3); POTASSIUM 4.6 mmol/L (3.5-5.1); TOT PROT 5.3 g/dl (6.4-8.2)
[2019-05-28 23:22] LABS: BASO % 4.7 % (0-2.0); EOS % 3.4 % (0-4.5); HEMATOCRIT 21.6 % (35.4-49); HEMOGLOBIN 7.1 GM/dL (11.7-16.9); LYMPH % 19.7 % (8-40); MCH 29.4 pg (25.7-33.7); MCHC 32.9 g/dl (32.0-35.9); MEAN CELL VOLUME 89.5 fl (80-96); MEAN PLT VOLUME 10.4 fl (7.5-11.1); MONO % 3.2 % (3.8-10.2); PLATELET COUNT 250 K/MM3 (134-434); RBC 2.41 M/mm3 (4.00-5.60); RDW 18.1 % (11.9-15.9); WHITE BLOOD COUNT 9.4 K/mm3 (4.0-10.0)
[2019-05-28 23:40] LABS: ALBUMIN 3.4 g/dl (3.4-5.0); BILIRUBIN,TOTAL 1.1 mg/dL (0.2-1); BLOOD UREA NITROGEN 14.1 mg/dL (7-18); CALCIUM 8.6 mg/dL (8.5-10.1); CREATININE 0.6 mg/dL (0.55-1.3); POTASSIUM 4.2 mmol/L (3.5-5.1); TOT PROT 5.1 g/dl (6.4-8.2)
[2019-05-29 07:46] LABS: EOS % 3.3 % (0-4.5); HEMATOCRIT 22.9 % (35.4-49); HEMOGLOBIN 7.5 GM/dL (11.7-16.9); LYMPH % 21.2 % (8-40); MCH 29.7 pg (25.7-33.7); MCHC 32.9 g/dl (32.0-35.9); MEAN CELL VOLUME 90.4 fl (80-96); MEAN PLT VOLUME 9.3 fl (7.5-11.1); MONO % 2.5 % (3.8-10.2); PLATELET COUNT 195 K/MM3 (134-434); RBC 2.53 M/mm3 (4.00-5.60); RDW 24.6 % (11.9-15.9)
--- NOTE | 2019-05-29 11:41 | HP ---
CHIEF COMPLAINT: PCP: HISTORY OF PRESENT ILLNESS: 73 yo m w/ PMH HLD, HTN, MM, transfusion dependent anemia who was admitted as a satellite for Hb 5.6. Patient is requiring a 3rd unit of blood and is being converted to inpatient for this purpose. PAST SURGICAL HISTORY: Social History: Smoking: denies Alcohol: denies Drugs: denies Allergies No Known Allergies Allergy (Verified 04/02/19 10:36) HOME MEDICATIONS: Home Medications Medication Instructions Recorded Tamsulosin HCl 0.4 mg PO DAILY 08/31/12 Aspirin [ASA -] 81 mg PO DAILY 04/11/14 Amlodipine Besylate [Norvasc -] 5 mg PO DAILY #30 tablet 09/27/18 Sotalol HCl [Betapace -] 80 mg PO BID@0800,2000 #60 tablet 09/27/18 Anagrelide HCl [Agrylin] 2 mg PO DAILY 04/02/19 Omeprazole 20 mg PO DAILY 04/02/19 Hydroxyurea [Hydrea 500Mg Capsule 500 mg PO ASDIR 05/03/19 -] REVIEW OF SYSTEMS CONSTITUTIONAL: Absent: fever, chills, diaphoresis, generalized weakness, malaise, loss of appetite, weight change HEENT: Absent: rhinorrhea, nasal congestion, throat pain, throat swelling, difficulty swallowing, mouth swelling, ear pain, eye pain, visual changes CARDIOVASCULAR: Absent: chest pain, syncope, palpitations, irregular heart rate, lightheadedness , peripheral edema RESPIRATORY: Absent: cough, shortness of breath, dyspnea with exertion, orthopnea, wheezing, stridor, hemoptysis GASTROINTESTINAL: Absent: abdominal pain, abdominal distension, nausea, vomiting, diarrhea, constipation, melena, hematochezia GENITOURINARY: Absent: dysuria, frequency, urgency, hesitancy, hematuria, flank pain, genital pain MUSCULOSKELETAL: Absent: myalgia, arthralgia, joint swelling, back pain, neck pain SKIN: Absent: rash, itching, pallor HEMATOLOGIC/IMMUNOLOGIC: Absent: easy bleeding, easy bruising, lymphadenopathy, frequent infections ENDOCRINE: Absent: unexplained weight gain, unexplained weight loss, heat intolerance, cold intolerance NEUROLOGIC: Absent: headache, focal weakness or paresthesias, dizziness, unsteady gait, seizure, mental status changes, bladder or bowel incontinence PSYCHIATRIC: Absent: anxiety, depression, suicidal or homicidal ideation, hallucinations. PHYSICAL EXAMINATION Vital Signs - 24 hr 05/28/19 05/28/19 05/28/19 13:10 13:40 15:03 Temperature 98.7 F 98.8 F 97.9 F Pulse Rate 79 96 H 75 Respiratory 20 20 18 Rate Blood Pressure 128/59 L 110/60 123/68 05/28/19 05/28/19 05/28/19 17:00 17:20 18:30 Temperature 98.9 F 98.9 F 98.2 F Pulse Rate 75 75 74 Respiratory 20 20 20 Rate Blood Pressure 136/54 L 141/58 L 137/54 L 05/28/19 05/28/19 05/29/19 18:45 22:00 06:02 Temperature 98.9 F 99 F 97.9 F Pulse Rate 76 59 L 70 Respiratory 20 18 20 Rate Blood Pressure 127/67 131/75 148/64 05/29/19 08:41 Temperature 98.2 F Pulse Rate 71 Respiratory 18 Rate Blood Pressure 138/60 GENERAL: Awake, alert, and fully oriented, in no acute distress. EYES: Pupils equal, round and reactive to light, extraocular movements intact, sclera anicteric, conjunctiva clear. No lid lag. Conjunctival pallor noted LUNGS: Breath sounds equal, clear to auscultation bilaterally. No wheezes, and no crackles. No accessory muscle use. HEART: Regular rate and rhythm, normal S1 and S2 without murmur, rub or gallop. ABDOMEN: Soft, nontender, not distended, normoactive bowel sounds, no guarding, no rebound, no masses. No hepatomegaly or splenomegaly. LOWER EXTREMITIES: 2+ pulses, warm, well-perfused. No calf tenderness. No peripheral edema. NEUROLOGICAL: Cranial nerves II-X intact. Normal speech. PSYCHIATRIC: Cooperative. Good eye contact. Appropriate mood and affect. SKIN: Warm, dry, normal turgor, no rashes or lesions noted, normal capillary refill. Laboratory Results - last 24 hr 05/28/19 05/28/19 05/28/19 10:50 10:50 10:50 WBC 9.0 RBC 1.86 L Hgb 5.6 L* Hct 17.6 L D MCV 94.4 MCH 30.2 MCHC 32.0 RDW 28.3 H Plt Count 276 MPV 10.8 Absolute Neuts (auto) 6.7 Neutrophils % 73.8 Lymphocytes % 17.4 Monocytes % 2.7 L Eosinophils % 2.7 Basophils % 3.4 H Nucleated RBC % 0 Sodium 142 Potassium 4.6 Chloride 108 H Carbon Dioxide 27 Anion Gap 6 L BUN 13.4 Creatinine 0.7 Est GFR (CKD-EPI)AfAm 107.75 Est GFR (CKD-EPI)NonAf 92.97 Random Glucose 139 H Calcium 8.5 Total Bilirubin 1.0 AST 10 L ALT 16 Alkaline Phosphatase 73 Total Protein 5.3 L Albumin 3.5 Blood Type B POSITIVE Antibody Screen Negative Crossmatch See Detail 05/28/19 05/28/19 05/29/19 23:10 23:10 06:30 WBC 9.4 9.0 RBC 2.41 L 2.53 L Hgb 7.1 L 7.5 L Hct 21.6 L D 22.9 L MCV 89.5 90.4 MCH 29.4 29.7 MCHC 32.9 32.9 RDW 18.1 H 24.6 H Plt Count 250 MPV 10.4 Absolute Neuts (auto) 6.5 6.3 Neutrophils % 69.0 70.0 Lymphocytes % 19.7 21.2 Monocytes % 3.2 L 2.5 L Eosinophils % 3.4 3.3 Basophils % 4.7 H 3.0 H Nucleated RBC % 0 0 Sodium 142 Potassium 4.2 Chloride 107 Carbon Dioxide 31 Anion Gap 3 L BUN 14.1 Creatinine 0.6 Est GFR (CKD-EPI)AfAm 114.80 Est GFR (CKD-EPI)NonAf 99.05 Random Glucose 83 Calcium 8.6 Total Bilirubin 1.1 H AST 12 L ALT 14 Alkaline Phosphatase 69 Total Protein 5.1 L Albumin 3.4 Blood Type Antibody Screen Crossmatch ASSESSMENT/PLAN: 73 yo m w/ PMH HLD, HTN, MM, transfusion dependent anemia who was admitted as a satellite for Hb 5.6. Patient is requiring a 3rd unit of blood and is being converted to inpatient for this purpose. #transfusion dependent anemia 2/2 MDS -initial Hb 5.6 -Hb 7.1 after 2u PRBC -Hb 7.5 today -per EMR, patient's baseline Hb ~ 8-9 -given patient's transfusion dependent anemia, will elect to transfuse a 3rd unit with a goal of Hb 8 to avoid having the patient come into the hospital for another transfusion in the near future. -will transfuse 1uPRBC -f/u post transfusion cbc -will discharge home later today if Hb stable Visit type - Emergency Visit Emergency Visit: No - New Patient This patient is new to me today: Yes Date on this admission: 05/29/19 - Critical Care Critical Care patient: No ATTENDING PHYSICIAN STATEMENT I saw and evaluated the patient. I reviewed the resident's note and discussed the case with the resident. I agree with the resident's findings and plan as documented. SUBJECTIVE: OBJECTIVE: ASSESSMENT AND PLAN:
[2019-05-29] MEDS ORDERED: ASPIRIN 81 MG CHEWABLE TABLETS PO SCH (11:45)
[2019-05-29] MEDS ORDERED: amLODIPine BESYLATE 5 MG TABLET (FP) PO SCH (11:45)
[2019-05-29] MEDS ORDERED: TAMSULOSIN HCL 0.4 MG CAP PO SCH (11:45)
[2019-05-29] MEDS ORDERED: HYDROXYUREA 500 MG CAPSULE PO SCH (11:45)
[2019-05-29 12:09] VITALS: BMI 19.5
[2019-05-29 12:42] LABS: PLATELET ESTIMATE NORMAL
[2019-05-29] MEDS ORDERED: PANTOPRAZOLE 20 MG TABLET (FP) PO SCH (13:15)
[2019-05-29 13:51] VITALS: BP 111/49; PULSE 72; TEMP 98.6
[2019-05-29 17:18] LABS: HEMATOCRIT 25.3 % (35.4-49); HEMOGLOBIN 8.1 GM/dL (11.7-16.9); MCH 29.2 pg (25.7-33.7); MCHC 32.2 g/dl (32.0-35.9); MEAN CELL VOLUME 90.6 fl (80-96); PLATELET COUNT 226 K/MM3 (134-434); RBC 2.79 M/mm3 (4.00-5.60); RDW 19.4 % (11.9-15.9); WHITE BLOOD COUNT 9.6 K/mm3 (4.0-10.0)
[2019-05-29] MEDS ORDERED: SOTALOL HCL 80 MG TABLET (FP) PO SCH (20:00)
--- NOTE | 2019-05-29 21:34 | DS ---
Physical Exam: SUBJECTIVE: Patient seen and examined at bedside. Feels well. OBJECTIVE: Vital Signs Period Temp Pulse Resp BP Sys/Paredes Pulse Ox Last 24 Hr 97.9 F-99 F 59-74 18-20 109-148/45-75 PHYSICAL EXAM GENERAL: The patient is awake, alert, and fully oriented, in no acute distress. HEAD: Normal with no signs of trauma. LUNGS: Breath sounds equal, clear to auscultation bilaterally, no wheezes, no crackles, no accessory muscle use. HEART: Regular rate and rhythm, S1, S2 without murmur, rub or gallop. ABDOMEN: Soft, nontender, nondistended, normoactive bowel sounds, no guarding, no rebound, no hepatosplenomegaly, no masses. EXTREMITIES: 2+ pulses, warm, well-perfused, no edema. NEUROLOGICAL: Cranial nerves II through X grossly intact. Normal speech, gait not observed. LABS Laboratory Results - last 24 hr 05/28/19 05/28/19 05/28/19 10:50 23:10 23:10 WBC 9.4 RBC 2.41 L Hgb 7.1 L Hct 21.6 L D MCV 89.5 MCH 29.4 MCHC 32.9 RDW 18.1 H Plt Count 250 MPV 10.4 Absolute Neuts (auto) 6.5 Neutrophils % 69.0 Lymphocytes % 19.7 Monocytes % 3.2 L Eosinophils % 3.4 Basophils % 4.7 H Nucleated RBC % 0 Platelet Estimate Platelet Comment Sodium 142 Potassium 4.2 Chloride 107 Carbon Dioxide 31 Anion Gap 3 L BUN 14.1 Creatinine 0.6 Est GFR (CKD-EPI)AfAm 114.80 Est GFR (CKD-EPI)NonAf 99.05 Random Glucose 83 Calcium 8.6 Total Bilirubin 1.1 H AST 12 L ALT 14 Alkaline Phosphatase 69 Total Protein 5.1 L Albumin 3.4 Blood Type B POSITIVE Antibody Screen Negative Crossmatch See Detail 05/29/19 05/29/19 06:30 16:35 WBC 9.0 9.6 RBC 2.53 L 2.79 L Hgb 7.5 L 8.1 L Hct 22.9 L 25.3 L MCV 90.4 90.6 MCH 29.7 29.2 MCHC 32.9 32.2 RDW 24.6 H 19.4 H Plt Count 195 D 226 MPV 9.3 D 11.0 D Absolute Neuts (auto) 6.3 Neutrophils % 70.0 Lymphocytes % 21.2 Monocytes % 2.5 L Eosinophils % 3.3 Basophils % 3.0 H Nucleated RBC % 0 Platelet Estimate Normal Platelet Comment Present Sodium Potassium Chloride Carbon Dioxide Anion Gap BUN Creatinine Est GFR (CKD-EPI)AfAm Est GFR (CKD-EPI)NonAf Random Glucose Calcium Total Bilirubin AST ALT Alkaline Phosphatase Total Protein Albumin Blood Type Antibody Screen Crossmatch HOSPITAL COURSE: Date of Admission:05/28/19 Patient was admitted as a satellite for symptomatic anemia. He received 2u PRBC and Hb went from 5.8 to 7.4. Baseline approximately 8-9. Patient required a 3rd unit of PRBC to bring him back to baseline. He was admitted for this purpose. Post transfusion CBC showed Hb 8.1. Patient felt well, better than when he came in. He was discharged home with instructions to follow up with his PCP as well as Dr. Ac. None of his medications were changed. Date of Discharge: 05/29/19 Minutes to complete discharge: 30 Discharge Summary Problems reviewed: Yes Reason For Visit: MYELODYSPLASTIC SYNDROME, UNSPECIFIED Condition: Improved - Instructions Diet, Activity, Other Instructions: You were admitted for the treatment of your transfusion dependent anemia. You received a total of 3 units of blood. Please resume taking your home medications as prescribed. Please follow up with your primary care doctor. Please follow up with Dr. Ac after discharge. If you begin to experience shortness of breath, chest pain or if any of your symptoms become worse, please call your doctor or return to the emergency department. Referrals: Yashira Mendoza MD [Staff Physician] - Disposition: HOME - Home Medications Comprehensive Discharge Medication List: Ambulatory Orders Tamsulosin HCl 0.4 mg PO DAILY 08/31/12 Aspirin [ASA -] 81 mg PO DAILY 04/11/14 Amlodipine Besylate [Norvasc -] 5 mg PO DAILY #30 tablet 09/27/18 Sotalol HCl [Betapace -] 80 mg PO BID@0800,1999 #60 tablet 09/27/18 Anagrelide HCl [Agrylin] 2 mg PO DAILY 04/02/19 Omeprazole 20 mg PO DAILY 04/02/19 Hydroxyurea [Hydrea 500Mg Capsule -] 500 mg PO ASDIR 09/27/19 This patient is new to me today: No Emergency Visit: No Critical Care patient: No - Discharge Referral Referred to [facility] Med P.C[facility] No ATTENDING PHYSICIAN STATEMENT I saw and evaluated the patient. I reviewed the resident's note and discussed the case with the resident. I agree with the resident's findings and plan as documented. SUBJECTIVE: OBJECTIVE: ASSESSMENT AND PLAN:
== END 2019-05-29 18:26 | disposition home or self-care (01) | DRG 812 ==
LOC: JONCBLOOD 08:38 → J7W 08:39 → JONCBLOOD 08:39 → J7W 08:39
PROVIDERS: ADMIT Internal Medicine Hematology & Oncology; ATTEND Internal Medicine Hematology & Oncology
PROC: 30233N1 Transfusion of Nonautologous Red Blood Cells into Peripheral Vein, Percutaneous Approach (ICD-10-PCS; principal; 2019-05-28)
DX: D46.9 Myelodysplastic syndrome, unspecified (principal); I10 Essential (primary) hypertension; E78.5 Hyperlipidemia, unspecified; D63.0 Anemia in neoplastic disease
CPT/HCPCS: 36415; 36430; 36511; 80053; 83735; 85025; 85027; 85610; 86850; 86900; 86901; 86922; J2997; P9038; P9058

== ENCOUNTER 2019-06-24 06:44 | Day surgery (SDC) | payer OTHER, BC ==
[2019-06-24 09:08] LABS: HEMATOCRIT 22.2 % (35.4-49); MCH 27.9 pg (25.7-33.7); MCHC 30.5 g/dl (32.0-35.9); MEAN CELL VOLUME 91.6 fl (80-96); MEAN PLT VOLUME 11.1 fl (7.5-11.1); PLATELET COUNT 413 K/MM3 (134-434); RBC 2.43 M/mm3 (4.00-5.60); RDW 26.6 % (11.9-15.9)
[2019-06-24 09:21] LABS: WHITE BLOOD COUNT 16.1 K/mm3 (4.0-10.0)
[2019-06-24 09:22] LABS: HEMOGLOBIN 6.8 GM/dL (11.7-16.9)
[2019-06-24 09:31] LABS: ALBUMIN 3.9 g/dl (3.4-5.0); BLOOD UREA NITROGEN 14.6 mg/dL (7-18); CALCIUM 8.9 mg/dL (8.5-10.1); CREATININE 0.6 mg/dL (0.55-1.3); POTASSIUM 4.6 mmol/L (3.5-5.1); TOT PROT 5.7 g/dl (6.4-8.2)
[2019-06-24] MEDS ORDERED: FUROSEMIDE 40 MG/4 ML INJECTABLE VIAL IVPUSH ONE (14:30)
--- NOTE | 2019-06-24 22:12 | HP ---
Satellite [facility] - Chief Complaint Chief Complaint: here for elective blood transfusion - Past Medical History Allergies/Adverse Reactions: Allergies Allergy/AdvReac Type Severity Reaction Status Date / Time No Known Allergies Allergy Verified 04/02/19 10:36 Cardiovascular: Yes: AFIB, HTN Pulmonary: Yes: COPD Heme/Onc: Yes: Myeloproliferative Synd, Other (Thrombocytosis) - Current Medications Current Medications: Home Medications Medication Instructions Recorded Tamsulosin HCl 0.4 mg PO DAILY 08/31/12 Aspirin [ASA -] 81 mg PO DAILY 04/11/14 Amlodipine Besylate [Norvasc -] 5 mg PO DAILY #30 tablet 09/27/18 Sotalol HCl [Betapace -] 80 mg PO BID@0800,1999 #60 tablet 09/27/18 Anagrelide HCl [Agrylin] 2 mg PO DAILY 04/02/19 Omeprazole 20 mg PO DAILY 04/02/19 Hydroxyurea [Hydrea 500Mg Capsule 500 mg PO ASDIR 05/03/19 -] Satellite Physical Exam - Physical Examination Vital Signs: Vital Signs Period Temp Pulse Resp BP Sys/Paredes Pulse Ox Last 24 Hr 97.8 F-98.4 F 70-78 20-20 109-157/48-67 General Appearance: Alert & Oriented x3 Lung: Clear to auscultation Heart: Regular rate & rhythm, Normal S1, Normal S2 Abdomen: Soft, No tenderness Extremities: No edema Neurological: Intact Satellite Impression/Plan - Impression/Plan Impression: 73 y/o patient with myeloproliferative disorder. for elective transfusion for hgb 6.8
[2019-06-25 08:32] VITALS: BP 146/65; PULSE 67; TEMP 97.7
[2019-06-25 09:01] LABS: BASO % 3.8 % (0-2.0); EOS % 2.8 % (0-4.5); HEMATOCRIT 26.6 % (35.4-49); HEMOGLOBIN 8.4 GM/dL (11.7-16.9); LYMPH % 12.9 % (8-40); MCH 28.4 pg (25.7-33.7); MCHC 31.6 g/dl (32.0-35.9); MEAN CELL VOLUME 89.8 fl (80-96); MEAN PLT VOLUME 11.3 fl (7.5-11.1); MONO % 2.3 % (3.8-10.2); NEUT % 78.2 % (42.8-82.8); RBC 2.97 M/mm3 (4.00-5.60); RDW 18.5 % (11.9-15.9); WHITE BLOOD COUNT 14.9 K/mm3 (4.0-10.0)
[2019-06-25 12:25] LABS: PLATELET ESTIMATE NORMAL
[2019-06-25 13:17] LABS: PLATELET COUNT 360 K/MM3 (134-434)
== END 2019-06-25 09:00 | disposition home or self-care (01) ==
LOC: JONCBLOOD 06:44 → J7W 08:16 → JONCBLOOD 06-25 09:00
PROVIDERS: ATTEND Internal Medicine Hematology & Oncology
PROC: 30233N1 Transfusion of Nonautologous Red Blood Cells into Peripheral Vein, Percutaneous Approach (ICD-10-PCS; principal; 2019-06-24)
DX: D46.9 Myelodysplastic syndrome, unspecified (principal); D47.3 Essential (hemorrhagic) thrombocythemia; I10 Essential (primary) hypertension; I48.91 Unspecified atrial fibrillation; J44.9 Chronic obstructive pulmonary disease, unspecified
CPT/HCPCS: 36415; 36430; 36511; 80053; 85025; 85027; 86850; 86900; 86901; 86922; P9038; P9058

== ENCOUNTER 2019-07-15 14:10 | Day surgery (SDC) | payer OTHER, BC ==
[2019-07-15 16:55] LABS: EOS % 2.2 % (0-4.5); HEMATOCRIT 20.8 % (35.4-49); LYMPH % 8.2 % (8-40); MCH 27.4 pg (25.7-33.7); MCHC 30.3 g/dl (32.0-35.9); MEAN CELL VOLUME 90.6 fl (80-96); MONO % 2.6 % (3.8-10.2); PLATELET COUNT 460 K/MM3 (134-434); RDW 25.1 % (11.9-15.9); WHITE BLOOD COUNT 17.1 K/mm3 (4.0-10.0)
[2019-07-15 16:59] LABS: HEMOGLOBIN 6.3 GM/dL (11.7-16.9)
[2019-07-15 17:08] LABS: ALBUMIN 3.6 g/dl (3.4-5.0); BILIRUBIN,TOTAL 0.9 mg/dL (0.2-1); CALCIUM 8.7 mg/dL (8.5-10.1); CREATININE 0.5 mg/dL (0.55-1.3); POTASSIUM 4.7 mmol/L (3.5-5.1); TOT PROT 5.4 g/dl (6.4-8.2)
[2019-07-15] MEDS ORDERED: POTASSIUM CHLORIDE TABS 20 MEQ TABLET.ER (FP) PO ONE (18:00)
[2019-07-15] MEDS ORDERED: FUROSEMIDE 40 MG/4 ML INJECTABLE VIAL IVPUSH ONE (18:00)
[2019-07-15 18:32] LABS: ANISOCYTOSIS 3+
[2019-07-15 18:33] LABS: PLATELET ESTIMATE SLT INCREASE
--- NOTE | 2019-07-15 20:08 | HP ---
Satellite [facility] - Chief Complaint Chief Complaint: Patient seen and examined. Feels well. Denies any complaints History Source: Patient - Past Medical History Allergies/Adverse Reactions: Allergies Allergy/AdvReac Type Severity Reaction Status Date / Time No Known Allergies Allergy Verified 04/02/19 10:36 Cardiovascular: Yes: AFIB, HTN Pulmonary: Yes: COPD Heme/Onc: Yes: Myeloproliferative Synd, Other (Thrombocytosis) - Current Medications Current Medications: Home Medications Medication Instructions Recorded Tamsulosin HCl 0.4 mg PO DAILY 08/31/12 Aspirin [ASA -] 81 mg PO DAILY 04/11/14 Amlodipine Besylate [Norvasc -] 5 mg PO DAILY #30 tablet 09/27/18 Sotalol HCl [Betapace -] 80 mg PO BID@0800,1999 #60 tablet 09/27/18 Anagrelide HCl [Agrylin] 2 mg PO DAILY 04/02/19 Omeprazole 20 mg PO DAILY 04/02/19 Hydroxyurea [Hydrea 500Mg Capsule 500 mg PO ASDIR 05/03/19 -] Satellite Physical Exam - Physical Examination Vital Signs: Vital Signs Period Temp Pulse Resp BP Sys/Paredes Pulse Ox Last 24 Hr 98.1 F 69 18 139/66 General Appearance: Alert & Oriented x3 Lung: Clear to auscultation, Normal air movement Heart: Regular rate & rhythm, Normal S1, Normal S2 Abdomen: Soft Extremities: No edema Neurological: Intact Satellite Impression/Plan - Impression/Plan Impression: 74 y/o patient with MDS/MPD. For elective blood transfusion
[2019-07-16 06:03] VITALS: PULSE 69
[2019-07-16 07:26] LABS: BASO % 3.8 % (0-2.0); EOS % 2.8 % (0-4.5); HEMATOCRIT 26.6 % (35.4-49); HEMOGLOBIN 8.3 GM/dL (11.7-16.9); LYMPH % 7.1 % (8-40); MCH 27.5 pg (25.7-33.7); MCHC 31.3 g/dl (32.0-35.9); MEAN PLT VOLUME 10.7 fl (7.5-11.1); MONO % 2.5 % (3.8-10.2); NEUT % 83.8 % (42.8-82.8); PLATELET COUNT 427 K/MM3 (134-434); RBC 3.03 M/mm3 (4.00-5.60); RDW 18.5 % (11.9-15.9); WHITE BLOOD COUNT 18.4 K/mm3 (4.0-10.0)
[2019-07-16 08:26] VITALS: BP 160/67; TEMP 99
[2019-07-16 09:29] LABS: ANISOCYTOSIS 2+; MACROCYTOSIS 2+; PLATELET ESTIMATE NORMAL; TARGET CELLS 1+; TEAR DROP CELLS 2+
== END 2019-07-16 12:18 | disposition home or self-care (01) ==
LOC: J7W 14:10 → JONCBLOOD 14:10
PROVIDERS: ATTEND Internal Medicine Hematology & Oncology
PROC: 30233N1 Transfusion of Nonautologous Red Blood Cells into Peripheral Vein, Percutaneous Approach (ICD-10-PCS; principal; 2019-07-15)
DX: D46.9 Myelodysplastic syndrome, unspecified (principal); D47.3 Essential (hemorrhagic) thrombocythemia; I48.91 Unspecified atrial fibrillation; I10 Essential (primary) hypertension; J44.9 Chronic obstructive pulmonary disease, unspecified
CPT/HCPCS: 36415; 36430; 36511; 80053; 85025; 86850; 86900; 86901; 86922; P9038; P9058

== ENCOUNTER 2019-09-09 08:34 | Day surgery (SDC) | payer OTHER, BC ==
[2019-09-09 09:46] LABS: BASO % 3.7 % (0-2.0); EOS % 2.4 % (0-4.5); HEMATOCRIT 23.9 % (35.4-49); HEMOGLOBIN 7.1 GM/dL (11.7-16.9); LYMPH % 11.1 % (8-40); MCH 26.6 pg (25.7-33.7); MCHC 29.8 g/dl (32.0-35.9); MONO % 2.4 % (3.8-10.2); NEUT % 80.4 % (42.8-82.8); RBC 2.69 M/mm3 (4.00-5.60); RDW 34.7 % (11.9-15.9)
[2019-09-09 09:52] LABS: WHITE BLOOD COUNT 32.4 K/mm3 (4.0-10.0)
[2019-09-09 10:23] LABS: ALBUMIN 3.8 g/dl (3.4-5.0); BILIRUBIN,TOTAL 0.8 mg/dL (0.2-1); CALCIUM 9.1 mg/dL (8.5-10.1); CREATININE 0.5 mg/dL (0.55-1.3); POTASSIUM 4.6 mmol/L (3.5-5.1); TOT PROT 5.9 g/dl (6.4-8.2)
[2019-09-09 12:32] LABS: ANISOCYTOSIS 2+; MACROCYTOSIS 0; PLATELET ESTIMATE INCREASED; TARGET CELLS 2+
[2019-09-09 13:33] LABS: MEAN PLT VOLUME 10.4 fl (7.5-11.1); PLATELET COUNT 822 K/MM3 (134-434)
[2019-09-09] MEDS ORDERED: PORTA CATH FLUSH 10 ML IVPUSH ONE (15:06)
[2019-09-09 19:17] VITALS: BP 151/62; PULSE 79; TEMP 98.5
== END 2019-09-09 19:19 | disposition home or self-care (01) ==
LOC: JONCBLOOD 08:34 → J7W 08:35 → JONCBLOOD 19:19
PROVIDERS: ATTEND Internal Medicine Hematology & Oncology
PROC: 30233N1 Transfusion of Nonautologous Red Blood Cells into Peripheral Vein, Percutaneous Approach (ICD-10-PCS; principal; 2019-09-09)
DX: D64.9 Anemia, unspecified (principal); D47.3 Essential (hemorrhagic) thrombocythemia; I48.91 Unspecified atrial fibrillation; I10 Essential (primary) hypertension; J44.9 Chronic obstructive pulmonary disease, unspecified
CPT/HCPCS: 36415; 36430; 36511; 80053; 85025; 86850; 86900; 86901; 86922; P9038; P9058

== ENCOUNTER 2019-10-07 08:09 | Day surgery (SDC) | payer OTHER, BC ==
[2019-10-07 09:25] LABS: BASO % 0.8 % (0-2.0); EOS % 1.9 % (0-4.5); HEMATOCRIT 21.6 % (35.4-49); LYMPH % 12.2 % (8-40); MCH 26.5 pg (25.7-33.7); MCHC 30.5 g/dl (32.0-35.9); MEAN CELL VOLUME 86.9 fl (80-96); MEAN PLT VOLUME 10.1 fl (7.5-11.1); MONO % 1.9 % (3.8-10.2); NEUT % 83.2 % (42.8-82.8); PLATELET COUNT 275 K/MM3 (134-434); RBC 2.48 M/mm3 (4.00-5.60); RDW 31.7 % (11.9-15.9); WHITE BLOOD COUNT 27.1 K/mm3 (4.0-10.0)
[2019-10-07 09:26] LABS: HEMOGLOBIN 6.6 GM/dL (11.7-16.9)
[2019-10-07 09:58] LABS: ALBUMIN 3.7 g/dl (3.4-5.0); BILIRUBIN,TOTAL 0.7 mg/dL (0.2-1); BLOOD UREA NITROGEN 12.1 mg/dL (7-18); CALCIUM 8.5 mg/dL (8.5-10.1); CREATININE 0.6 mg/dL (0.55-1.3); POTASSIUM 4.3 mmol/L (3.5-5.1); TOT PROT 5.8 g/dl (6.4-8.2)
[2019-10-07 10:31] LABS: ANISOCYTOSIS 3+; MACROCYTOSIS 2+; PLATELET ESTIMATE NORMAL; TARGET CELLS 1+
--- NOTE | 2019-10-07 10:44 | HP ---
Satellite [facility] - Chief Complaint Chief Complaint: PAtient seen and examined. Feels well. Denies any complaints - Past Medical History Allergies/Adverse Reactions: Allergies Allergy/AdvReac Type Severity Reaction Status Date / Time No Known Allergies Allergy Verified 04/02/19 10:36 Cardiovascular: Yes: AFIB, HTN Pulmonary: Yes: COPD Heme/Onc: Yes: Myeloproliferative Synd, Other (Thrombocytosis) - Current Medications Current Medications: Home Medications Medication Instructions Recorded Tamsulosin HCl 0.4 mg PO DAILY 08/31/12 Aspirin [ASA -] 81 mg PO DAILY 04/11/14 Amlodipine Besylate [Norvasc -] 5 mg PO DAILY #30 tablet 09/27/18 Sotalol HCl [Betapace -] 80 mg PO BID@0800,2000 #60 tablet 09/27/18 Anagrelide HCl [Agrylin] 2 mg PO DAILY 04/02/19 Omeprazole 20 mg PO DAILY 04/02/19 Hydroxyurea [Hydrea 500Mg Capsule 500 mg PO ASDIR 05/03/19 -] Satellite Physical Exam - Physical Examination General Appearance: Well Developed, Alert & Oriented x3 Lung: Clear to auscultation, Normal air movement Heart: Regular rate & rhythm, Normal S1, Normal S2 Abdomen: Soft, No tenderness, Normal bowel sounds Extremities: No edema Neurological: Intact Satellite Impression/Plan - Impression/Plan Impression: MDS/MPD. Elective blood transfusion for hgb 6.6. Continue anagrelide
[2019-10-07 17:59] VITALS: BP 108/43; PULSE 80; TEMP 98.3
== END 2019-10-07 19:44 | disposition home or self-care (01) ==
LOC: JONCBLOOD 08:09 → J7W 08:10 → JONCBLOOD 19:44
PROVIDERS: ATTEND Internal Medicine Hematology & Oncology
PROC: 30243N1 Transfusion of Nonautologous Red Blood Cells into Central Vein, Percutaneous Approach (ICD-10-PCS; principal; 2019-10-07)
DX: D64.9 Anemia, unspecified (principal); D47.3 Essential (hemorrhagic) thrombocythemia; I10 Essential (primary) hypertension; I48.91 Unspecified atrial fibrillation; J44.9 Chronic obstructive pulmonary disease, unspecified
CPT/HCPCS: 36415; 36430; 36511; 80053; 85025; 86850; 86900; 86901; 86922; P9038; P9058

== ENCOUNTER 2020-04-23 12:25 | Day surgery (SDC) | payer OTHER, BC ==
[2020-04-23] MEDS ORDERED: PORTA CATH FLUSH 10 ML IVPUSH ONE (18:25)
[2020-04-24 08:19] VITALS: BP 134/74; PULSE 83; TEMP 97.6
== END 2020-04-24 09:45 | disposition home or self-care (01) ==
LOC: JONCBLOOD 12:25 → J7W 12:26 → JONCBLOOD 04-24 09:45
PROVIDERS: ATTEND Internal Medicine Hematology & Oncology
PROC: 30233N1 Transfusion of Nonautologous Red Blood Cells into Peripheral Vein, Percutaneous Approach (ICD-10-PCS; principal; 2020-04-23)
DX: C94.6 Myelodysplastic disease, not elsewhere classified (principal); D63.0 Anemia in neoplastic disease; I10 Essential (primary) hypertension
CPT/HCPCS: 36430; 86850; 86900; 86901; 86922; P9058

== ENCOUNTER 2020-05-07 08:35 | Inpatient (IN) | payer OTHER, BC ==
--- OUTSIDE RECORDS SUMMARY | 2020-05-07 08:46 | XMS ---
:1945 Author Organization [facility] Support Name Relationship Address Phone RE, RETIRED Unavailable Unavailable Unavailable RE Unavailable Unavailable Unavailable SONIDO JACOBS SON [address] [place] [address] BETTY NEGRON DAUGHTER [address] [place] [address] Re-disclosure Warning The records that you are about to access may contain information from federally- assisted alcohol or drug abuse programs. If such information is present, then the following federally mandated warning applies: This information has been disclosed to you from records protected by federal confidentiality rules (42 CFR part 2). The federal rules prohibit you from making any further disclosure of this information unless further disclosure is expressly permitted by the written consent of the person to whom it pertains or as otherwise permitted by 42 CFR part 2. A general authorization for the release of medical or other information is NOT sufficient for this purpose. The Federal rules restrict any use of the information to criminally investigate or prosecute any alcohol or drug abuse patient.The records that you are about to access may contain highly sensitive health information, the redisclosure of which is protected by Article 27-F of the [facility] Public Health law. If you continue you may haveaccess to information: Regarding HIV / AIDS; Provided by facilities licensed or operated by the [facility] Office of Mental Health; or Provided by the [facility] Office for People With Developmental Disabilities. If such information is present, then the following [facility] mandated warning applies: This information has been disclosed to you from confidential records which are protected by state law. State law prohibits you from making any further disclosure of this information without the specific written consent of the person to whom it pertains, or as otherwise permitted by law. Any unauthorized further disclosure in violation of state law may result in a fine or fpc sentence or both. A general authorization for the release of medical or other information is NOT sufficient authorization for further disclosure. Insurance Providers Payer name Policy type Policy ID Covered Covered democrat's Policy P uli / Coverage democrat ID relationship to Sharma Inf ormation type sharma BC PPO [id number] SP [id number] MEDICARE [id number] SP [id number] BC PPO [id number] SP [id number] PPO [id number] SP [id number]
[2020-05-07 10:25] LABS: BASO % 4.1 % (0-2.0); EOS % 1.8 % (0-4.5); HEMATOCRIT 18.2 % (35.4-49); LYMPH % 5.4 % (8-40); MCH 25.2 pg (25.7-33.7); MCHC 30.5 g/dl (32.0-35.9); MEAN CELL VOLUME 82.6 fl (80-96); MEAN PLT VOLUME 9.9 fl (7.5-11.1); MONO % 1.5 % (3.8-10.2); NEUT % 87.2 % (42.8-82.8); PLATELET COUNT 122 K/MM3 (134-434); RDW 29.7 % (11.9-15.9); WHITE BLOOD COUNT 25.4 K/mm3 (4.0-10.0)
[2020-05-07 10:28] LABS: HEMOGLOBIN 5.6 GM/dL (11.7-16.9)
--- NOTE | 2020-05-07 10:48 | CON.HO ---
Consult - text type - Consultation Consultation Note: Called bedside to evaluate Mr Santana prior to 2 units scheduled PRBC. He has +2 pitting edema b/l and reports this is worse than his baseline. We will give Lasix 40mg IV push between his two units of blood. He also has Lasix 20mg PO prescribed m/w/ which he should continue on dc. He also reports some bruising on his left gluteal region. He denies any hx of trauma to the area. General: in NAD, A&Ox3, able to speak in full sentences. 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 Patient understands above plan and agrees. All questions were answered to the satisfaction of the patient.
[2020-05-07 10:53] LABS: ALBUMIN 3.4 g/dl (3.4-5.0); BILIRUBIN,TOTAL 1.3 mg/dL (0.2-1); BLOOD UREA NITROGEN 15.1 mg/dL (7-18); CALCIUM 8.2 mg/dL (8.5-10.1); CREATININE 0.6 mg/dL (0.55-1.3); POTASSIUM 4.5 mmol/L (3.5-5.1); TOT PROT 5.6 g/dl (6.4-8.2)
[2020-05-07 12:13] LABS: ANISOCYTOSIS 1+; MACROCYTOSIS 0; PLATELET ESTIMATE DECREASED; TARGET CELLS 1+; TEAR DROP CELLS 1+
[2020-05-07] MEDS ORDERED: FUROSEMIDE 40 MG/4 ML INJECTABLE VIAL IVPUSH ONE (16:00)
[2020-05-07] MEDS: ACETAMINOPHEN 325 MG TABLET (FP) PO PRN (23:54)
[2020-05-07] MEDS: oxyCODONE HCL 5 MG TABLET PO PRN (23:55)
--- NOTE | 2020-05-08 06:17 | CON.CARD ---
Consult Consult Specialty:: Cardiology for Referred by:: Dr Kaplan Reason for Consultation:: Pedal edema - History of Present Illness Chief Complaint: Bilateral LE edema History of Present Illness: 74 M MDS, AF, Moderate MR/TR/PHTN admitted for PRBCS found to have pedal edema. Right LE markedly more swollen than left, with ecchymosis over right hip and some pain- a CT was ordered by Onc. LE venous duplex also pending. His weight has been increasing, even prior to this admission. Denies SOB/CP/palps. Takes Lasix 20mg TIW at home. Also on Amlodipine which may contribute to edema. - History Source History Provided By: Patient, Medical Record - Past Medical History Cardio/Vascular: Yes: AFIB, HTN, Mitral Insufficiency, Pulmonary Hypertension Pulmonary: Yes: COPD Gastrointestinal: No: Ascites, Cancer, Constipation, Crohn's Disease, Diverticulitis, Diverticulosis, Esophageal Varices, Gastritis, GERD, GI Bleed, Hemorrhoids, Hiatal Hernia, Inflamatory Bowel Disease, Irritable Bowel Disease, Pancreatitis, Peptic Ulcer Disease, Ulcerative Colitis, Other Hepatobiliary: No: Cirrhosis, Cholelithiasis, Cholecystitis, Choledocholithiasis, Hepatitis A, Hepatitis B, Hepatitis C, Other Renal/: No: Renal Failure, Renal Inusuff, BPH, Cancer, Hematuria, Hemodialysis, Neurogenic Bladder, Renal Calculi, UTI, Other Heme/Onc: No: Anemia, B12 Deficiency, Bleeding Disorder, Cancer, Current Chemotherapy, Current Radiation Therapy, Hemochromatosis, Hypercoaguable State, Myeloproliferative Synd, Sickle Cell Disease, Sickle Cell Trait, Thrombocytopenia, Other Infectious Disease: No: AIDS, C-Diff, Herpes Zoster, HIV, MRSA, STD's, Tuberculosis, VREF, Other Psych: No: Addictions, Anxiety, Bipolar, Depression, Panic, Psychosis, Schizophrenia, Other Musculoskeletal: No: Bursitis, Chronic low back pain, Hemiparesis, Hemiplegia, Osteoarthritis, Paraplegia, Other ENT: No: Allergic Rhinitis, Sinusitis, Other Endocrine: No: Mansfield's Disease, Timur's Disease, Diabetes Insipidus, Diabetes Mellitus, Hyperparathyroidism, Hyperthyroidism, Hypothyroidism, Osteopenia, SIADH, Other Dermatology: No: Basal Cell, Cellulitis, Eczema, Melanoma, Psoriasis, Squamous Cell, Other - Past Surgical History Past Surgical History: Yes: Hernia Repair - Alcohol/Substance Use Hx Alcohol Use: Yes - Smoking History Smoking history: Never smoked Have you smoked in the past 12 months: No Aproximately how many cigarettes per day: 0 If you are a former smoker, when did you quit?: 1 YR - Social History Usual Living Arrangement: Alone History of Recent Travel: No Home Medications - Allergies Allergies/Adverse Reactions: Allergies Allergy/AdvReac Type Severity Reaction Status Date / Time No Known Allergies Allergy Verified 04/02/19 10:36 - Home Medications Home Medications: Ambulatory Orders Tamsulosin HCl 0.4 mg PO DAILY 08/31/12 Aspirin [ASA -] 81 mg PO DAILY 04/11/14 Amlodipine Besylate [Norvasc -] 5 mg PO DAILY #30 tablet 09/27/18 Sotalol HCl [Betapace -] 80 mg PO BID@0800,1999 #60 tablet 09/27/18 Anagrelide HCl [Agrylin] 2 mg PO DAILY 04/02/19 Family Medical History Family History: Unremarkable (not pertinent to this presentation) Review of Systems Findings/Remarks: see HPI - Review of Systems Constitutional: reports: Weakness Eyes: reports: No Symptoms HENT: reports: No Symptoms Cardiovascular: reports: Edema Respiratory: reports: Exercise Intolerance Gastrointestinal: reports: No Symptoms Genitourinary: reports: No Symptoms Breasts: reports: No Symptoms Reported Musculoskeletal: reports: Joint Pain (right hip) Integumentary: reports: No Symptoms Neurological: reports: No Symptoms Endocrine: reports: No Symptoms Hematology/Lymphatic: reports: No Symptoms Psychiatric: reports: No Symptoms - Risk Factors Known Risk Factors: Yes: Age, Hypertension Vital Signs: Vital Signs Temperature 98.6 F 05/07/20 19:51 Pulse Rate 85 05/07/20 19:51 Respiratory Rate 18 05/07/20 19:51 Blood Pressure 138/70 05/07/20 19:51 O2 Sat by Pulse Oximetry (%) 95 05/07/20 19:51 Constitutional: Yes: No Distress, Calm Eyes: Yes: Conjunctiva Clear HENT: Yes: Atraumatic Neck: Yes: Trachea Midline Respiratory: Yes: CTA Bilaterally (no wheezing or rales) Gastrointestinal: Yes: Soft (mildly distended) Cardiovascular: Yes: Pulse Irregular JVD: Yes Carotid Bruit: No PMI: Non-Displaced Heart Sounds: Yes: S1, S2 (irreg) Edema: Yes Edema: LLE: 2+, RLE: 3+ Peripheral Pulses WNL: Yes Neurological: Yes: Alert, Oriented ...Motor Strength: WNL Psychiatric: Yes: WNL - Other Data Labs, Other Data: CBC, BMP 05/07/20 10:00 05/07/20 10:00 Laboratory Tests 05/08/20 05/08/20 05/08/20 06:30 06:30 06:30 WBC 22.1 H Hgb 5.4 L* Plt Count 101 L INR 1.52 H Sodium 142 Potassium 4.3 BUN 24.9 H Creatinine 0.6 Uric Acid 11.1 H LD Total 612 H Total Protein 4.8 L Albumin 3.0 L Echo: Pending Imaging - Results EKG: Pending Assessment/Plan IMP/PLAN: 74yr old man with a hx of HTN, MDS, hx of paroxysmal Afib, hemachromatosis, left ventricular diastolic dysfunction, recurring anemia, thrombocytopenia and critical carotid artery stenosis s/p CEA here for elective PRBC transfusion found to have worsened b/l LE edema and R hip pain. 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 Trial of diuresis. mds: As per Oncology
[2020-05-08 08:29] LABS: BASO % 3.8 % (0-2.0); EOS % 1.3 % (0-4.5); HEMATOCRIT 16.8 % (35.4-49); LYMPH % 3.6 % (8-40); MCH 26.5 pg (25.7-33.7); MEAN CELL VOLUME 82.8 fl (80-96); MEAN PLT VOLUME 10.1 fl (7.5-11.1); MONO % 1.9 % (3.8-10.2); NEUT % 89.4 % (42.8-82.8); PLATELET COUNT 101 K/MM3 (134-434); RBC 2.03 M/mm3 (4.00-5.60); RDW 25.6 % (11.9-15.9); WHITE BLOOD COUNT 22.1 K/mm3 (4.0-10.0)
[2020-05-08 08:45] LABS: INR 1.52 (0.83-1.09)
[2020-05-08 08:48] LABS: ACTIVATED PTT 47.5 SECONDS (25.2-36.5)
[2020-05-08 08:49] LABS: HEMOGLOBIN 5.4 GM/dL (11.7-16.9)
[2020-05-08 09:00] LABS: BILIRUBIN,TOTAL 2.3 mg/dL (0.2-1); BLOOD UREA NITROGEN 24.9 mg/dL (7-18); CALCIUM 7.5 mg/dL (8.5-10.1); CREATININE 0.6 mg/dL (0.55-1.3); POTASSIUM 4.3 mmol/L (3.5-5.1); TOT PROT 4.8 g/dl (6.4-8.2); URIC ACID 11.1 mg/dL (2.6-7.2)
[2020-05-08 09:53] LABS: ANISOCYTOSIS 3+; MACROCYTOSIS 0; PLATELET ESTIMATE DECREASED
[2020-05-08] MEDS ORDERED: FUROSEMIDE 40 MG/4 ML INJECTABLE VIAL IVPUSH SCH (10:00)
[2020-05-08] MEDS ORDERED: ASPIRIN 81 MG CHEWABLE TABLETS PO SCH (10:00)
[2020-05-08 10:09] LABS: BASO % 1.1 % (0-2.0); EOS % 1.4 % (0-4.5); HEMATOCRIT 15.2 % (35.4-49); LYMPH % 4.9 % (8-40); MCH 25.9 pg (25.7-33.7); MCHC 31.5 g/dl (32.0-35.9); MEAN CELL VOLUME 82.3 fl (80-96); MEAN PLT VOLUME 10.4 fl (7.5-11.1); MONO % 1.3 % (3.8-10.2); NEUT % 91.3 % (42.8-82.8); PLATELET COUNT 110 K/MM3 (134-434); RBC 1.85 M/mm3 (4.00-5.60); RDW 26.5 % (11.9-15.9); WHITE BLOOD COUNT 21.5 K/mm3 (4.0-10.0)
[2020-05-08 10:13] LABS: HEMOGLOBIN 4.8 GM/dL (11.7-16.9)
--- NOTE | 2020-05-08 10:28 | EKG ---
Test Reason : Blood Pressure : / mmHG Vent. Rate : 076 BPM Atrial Rate : 076 BPM P-R Int : 194 ms QRS Dur : 086 ms QT Int : 426 ms P-R-T Axes : 049 -12 005 degrees QTc Int : 479 ms NORMAL SINUS RHYTHM WITH SINUS ARRHYTHMIA NONSPECIFIC T WAVE ABNORMALITY PROLONGED QT ABNORMAL ECG Confirmed by MORIAH DICKENS MD ([id number]) on 05/08/2020 10:27:56 AM Referred By: Confirmed By:MORIAH DICKENS MD
[2020-05-08 10:48] LABS: ANISOCYTOSIS 3+; MACROCYTOSIS 0; PLATELET ESTIMATE DECREASED
[2020-05-08] MEDS: SOTALOL HCL 80 MG TABLET (FP) PO SCH ×2 (10:56→21:32)
[2020-05-08] MEDS ORDERED: PHYTONADIONE 10 MG/1 ML AMP IVPB ONE (11:00)
--- NOTE | 2020-05-08 11:11 | PN.HO ---
Progress Note, Physician Chief Complaint: B/L EDEMA History of Present Illness: 74M with transfusion dependent MDS/MPN, Afib on sotalol presents for scheduled outpatient PRBC transfusion of 2 units. On arrival yesterday, he was endorsing b/l lower extremity pitting edema (worse than baseline) and some bruising on his right gluteal area which was new. He had some pain over the area as well. Denied any trauma. He did not endorse any SOB, cough, fevers or abdominal distention. He received 2 units of PRBC with Lasix 40mg IV in between units however in the evening he was endorsing worsening edema of the lower extremity, R>L. Hb this am did not respond to the two units of PRBC given yesterday. Plan to give 1 unit of PRBC again and image lower extremities, admit to medicine with tele monitoring. - Current Medication List Current Medications: Active Medications Acetaminophen (Tylenol -) 650 mg PO Q6H PRN PRN Reason: PAIN LEVEL 1-3 Last Admin: 05/07/20 23:54 Dose: 650 mg Documented by: Furosemide (Lasix Injection -) 40 mg IVPUSH DAILY [facility] Oxycodone HCl (Roxicodone -) 5 mg PO Q6H PRN PRN Reason: PAIN LEVEL 4 - 6 Last Admin: 05/07/20 23:55 Dose: 5 mg Documented by: Sotalol HCl (Betapace -) 80 mg PO BID [facility] Last Admin: 05/08/20 10:56 Dose: 80 mg Documented by: - Objective Vital Signs: Vital Signs Temperature 98.4 F 05/08/20 06:00 Pulse Rate 83 05/08/20 06:00 Respiratory Rate 18 05/08/20 06:00 Blood Pressure 120/54 L 05/08/20 06:00 O2 Sat by Pulse Oximetry (%) 96 05/08/20 06:00 Constitutional: Yes: Well Nourished Eyes: Yes: Conjunctiva Clear, EOM Intact HENT: Yes: Atraumatic, Normocephalic Neck: Yes: WNL Cardiovascular: Yes: Other (LUSB murmur present) Respiratory: Yes: CTA Bilaterally Gastrointestinal: Yes: Normal Bowel Sounds, Soft Extremities: Yes: Other (b/l lower extremity edema; +2 pitting; slightly improved from yesterday (knees down) however marked edema of the right upper thigh which is new from yesterday) Edema: Yes Labs: CBC, BMP 05/08/20 09:45 05/08/20 06:30 INR, PTT INR 1.52 (0.83-1.09) H 05/08/20 06:30 Assessment/Plan 74M with MDS/MPN transfusion dependent, afib on sotalol presents for PRBC transfusion c/b lower extremity edema and hematoma -Will request admission to medicine with tele -HOLD Aspirin 81 -CT abd/pelvis and lower extremity ordered (with attention to the right lower extremity as edema in the right thigh and hip is new from yesterday) both limbs are well perfused and warm with strong b/l pedal pulses and no change in color. Will need serial exams to monitor for comparment syndrome -b/l duplex ordered -ordered LDH, haptoglobin, FOBT, fibrinogen, VWF workup -will give IV Vitamin K 10mg x1 -f/u echo - if hematoma worsens or any signs of bleeding on CT scan, 1 unit of platelets is advised since patient was on asa
--- NOTE | 2020-05-08 12:01 | HP ---
CHIEF COMPLAINT: anemia PCP: HISTORY OF PRESENT ILLNESS: Patient is a 74 y/o male with a history of HLD, HTN, MDS/MPN, paroxysmal afib , transfusion dependent anemia who was admitted as a satellite for Hb 4.8. Patient complains of new right lower extremity pain. Patient received two units of PRBC with 40 of lasix in between units but his Hgb did not respond. Patient reports his only pain is in his lower leg, feels like a tight feeling. he did not have any trauma. Denies fever, chills, nausea, vomtiing, chest pain. ER course was notable for: (1) (2) (3) Recent Travel: PAST MEDICAL HISTORY:HLD, HTN, MM, transfusion dependent anemia Social History: Smoking: denies Alcohol: denies Drugs: denies Allergies No Known Allergies Allergy (Verified 04/02/19 10:36) HOME MEDICATIONS: Home Medications Medication Instructions Recorded Tamsulosin HCl 0.4 mg PO DAILY 08/31/12 Aspirin [ASA -] 81 mg PO DAILY 04/11/14 Amlodipine Besylate [Norvasc -] 5 mg PO DAILY #30 tablet 09/27/18 Sotalol HCl [Betapace -] 80 mg PO BID@0800,2000 #60 tablet 09/27/18 Anagrelide HCl [Agrylin] 2 mg PO DAILY 04/02/19 REVIEW OF SYSTEMS CONSTITUTIONAL: Absent: fever, chills, diaphoresis, generalized weakness, malaise, loss of appetite, weight change HEENT: Absent: rhinorrhea, nasal congestion, throat pain, throat swelling, difficulty swallowing, mouth swelling, ear pain, eye pain, visual changes CARDIOVASCULAR: Absent: chest pain, syncope, palpitations, irregular heart rate, lightheadedness, peripheral edema RESPIRATORY: Absent: cough, shortness of breath, dyspnea with exertion, orthopnea, wheezing, stridor, hemoptysis GASTROINTESTINAL: Absent: abdominal pain, abdominal distension, nausea, vomiting, diarrhea, con stipation, melena, hematochezia GENITOURINARY: Absent: dysuria, frequency, urgency, hesitancy, hematuria, flank pain, genital pain MUSCULOSKELETAL: Absent: myalgia, arthralgia, joint swelling, back pain, neck pain SKIN: Absent: rash, itching, pallor HEMATOLOGIC/IMMUNOLOGIC: Absent: easy bleeding, easy bruising, lymphadenopathy, frequent infections ENDOCRINE: Absent: unexplained weight gain, unexplained weight loss, heat intolerance, cold intolerance NEUROLOGIC: Absent: headache, focal weakness or paresthesias, dizziness, unsteady gait, seizure, mental status changes, bladder or bowel incontinence PSYCHIATRIC: Absent: anxiety, depression, suicidal or homicidal ideation, hallucinations. PHYSICAL EXAMINATION Vital Signs Temperature 98.4 F 05/08/20 06:00 Pulse Rate 83 05/08/20 06:00 Respiratory Rate 18 05/08/20 06:00 Blood Pressure 120/54 L 05/08/20 06:00 O2 Sat by Pulse Oximetry (%) 96 05/08/20 06:00 GENERAL: Awake, alert, and fully oriented, in no acute distress. HEAD: Normal with no signs of trauma. EYES: Pupils equal, round and reactive to light, extraocular movements intact, sclera anicteric, conjunctiva clear. No lid lag. EARS, NOSE, THROAT: Ears normal, nares patent, oropharynx clear without exudates. Moist mucous membranes. LUNGS: Breath sounds equal, clear to auscultation bilaterally. No wheezes, and no crackles. No accessory muscle use. HEART: Regular rate and rhythm, 3/6 systolic murmur at midsternal border, chemo port upper R chest ABDOMEN: Soft, nontender, not distended, normoactive bowel sounds, no guarding, no rebound, no masses. No hepatomegaly or splenomegaly. LOWER EXTREMITIES: 2+ pulses, warm, well-perfused. No calf tenderness. 2+ pitting edema along right leg, none on left leg NEUROLOGICAL: Cranial nerves II-XII intact. Normal speech. Normal gait. PSYCHIATRIC: Cooperative. Good eye contact. Appropriate mood and affect. SKIN: hematoma extensive along right leg CBC, BMP 05/08/20 09:45 05/08/20 06:30 ASSESSMENT/PLAN: Patient is a 74 y/o male with a history of HLD, HTN, MDS/MPN, paroxysmal afib , transfusion dependent anemia who was admitted as a satellite for Hb 4.8. #transfusion dependent anemia with MDS/MPN - patient received 2 units yesterday, to receive one unit today - patient with a large gluteal hematoma, f/u imagine - followed by Heme ONC - given Vitamin K 10 mg po once - continue oxy for pain - if hgb drops can give unit of platelets - if patient becomes SOB with transfusion, can give extra dose of lasix # right lower extremity hematoma - CT shows extensive infiltration into muscle and fascia - will discuss with Dr. olivera - if hgb continues to drop, keep an eye for compartment syndrome #paroxysmal afib - continue Sotalol #acute on chronic CHF - f/u echo - lasix 40 IV daily #carotid stenosis - on ASA but will hold Family Medical History Family History: As Documented Visit type - Medication Review Med list reviewed for High Risk Meds patients 65 and older: Yes - Emergency Visit Emergency Visit: No - New Patient This patient is new to me today: Yes Date on this admission: 05/11/20 - Critical Care Critical Care patient: No ATTENDING PHYSICIAN STATEMENT I saw and evaluated the patient. I reviewed the resident's note and discussed the case with the resident. I agree with the resident's findings and plan as documented. SUBJECTIVE: OBJECTIVE: ASSESSMENT AND PLAN:
--- OUTSIDE RECORDS SUMMARY | 2020-05-08 12:23 | XMS ---
:1945 Author Organization [facility] Support Name Relationship Address Phone RE, RETIRED Unavailable Unavailable Unavailable RE Unavailable Unavailable Unavailable SONIDO JACOBS [address] [place] [address] BETTY NEGRON DAUGHTER [address] [phone] [place] [address] Re-disclosure Warning The records that you are [...] is protected by Article 27-F of the [facility] Public Health law. If you continue you may haveaccess to information: Regarding HIV / AIDS; Provided by facilities licensed or operated by the [facility] Office of Mental Health; or Provided by the [facility] Office for People With Developmental Disabilities. If such information is present, then the following [facility] mandated warning applies: This information has [...] law may result in a fine or mcc sentence or both. A general authorization for the release of medical or other information is NOT sufficient authorization for further disclosure. Insurance Providers Payer name Policy type Policy ID Covered Covered libertarian's Policy P uli / Coverage libertarian ID relationship to Sharma Inf ormation type sharma BC PPO [id number] SP [id number] MEDICARE [id number] SP [id number] PPO [id number] SP [id number] PPO [id number] SP [id number]
[2020-05-08] MEDS ORDERED: PHYTONADIONE 5 MG TABLET PO ONE (12:30)
--- NOTE | 2020-05-08 12:56 | ECHO ---
Version: 1 Name: PERLA NEGRON Exam: Adult Echocardiogram Study Date: 05/08/2020, 12:11 PM Age: 74 Years MMode/2D Measurements & Calculations IVSd: 1.00 cm LVIDs: 3.2 cm LVIDd: 4.6 cm LVPWd: 0.98 cm LAV (MOD-bp): 93.6 ml LVOT diam: 2.04 cm Ao root diam: 3.1 cm LA dimension: 4.9 cm Doppler Measurements & Calculations MV E max skyler: 104.0 cm/sec Med E/e': 15.7 MV A max skyler: 83.2 cm/sec Med Peak E' Skyler: 6.6 cm/sec MV E/A: 1.25 Lat E/e': 9.1 Lat Peak E' Skyler: 11.4 cm/sec MR max P.1 mmHg Ao max P.4 mmHg Ao V2 max: 208.8 cm/sec TR max skyler: 316.4 cm/sec TR max P.3 mmHg Left Ventricle Left ventricular systolic function is normal. Ejection Fraction = 55-60%. The transmitral spectral D oppler flow pattern is normal for age. Right Ventricle The right ventricle is borderline dilated. The right ventricular systolic function is grossly normal . Atria The left atrium is moderately dilated. The right atrium is mildly dilated. Mitral Valve There is mild mitral valve thickening. There is no mitral valve stenosis. There is mild mitral regur gitation. Tricuspid Valve The tricuspid valve is not well visualized, but is grossly normal. There is mild tricuspid regurgita tion. Right ventricular systolic pressure is elevated at 40-50mmHg. Aortic Valve There is mild to moderate aortic sclerosis.;. No hemodynamically significant valvular aortic stenosi s. No aortic regurgitation is present. Pulmonic Valve The pulmonic valve is normal in structure and function. There is no pulmonic valvular stenosis. Trac e pulmonic valvular regurgitation. Great Vessels The aortic root is normal size. Pericardium/Pleura There is no pericardial effusion. Summary Statements Left ventricular systolic function is normal. Ejection Fraction = 55-60%. The right ventricle is borderline dilated. The right ventricular systolic function is grossly normal. The left atrium is moderately dilated. The right atrium is mildly dilated. There is mild mitral regurgitation. There is mild tricuspid regurgitation. Right ventricular systolic pressure is elevated at 40-50mmHg. There is mild to moderate aortic sclerosis.; There is no pericardial effusion. MD Davalos *Edinson 05/08/2020, 12:56 PM Ordering Physician: Anoop Neves Performed By: Ginger Voss
--- NOTE | 2020-05-08 13:01 | PN ---
Teaching Attending Note Name of Resident: Aliya Bonilla ATTENDING PHYSICIAN STATEMENT I saw and evaluated the patient. I reviewed the resident's note and discussed the case with the resident. I agree with the resident's findings and plan as documented. SUBJECTIVE: 74yo M HLD, HTN, MDS, MPN, Afib who was originally admitted for satellite requiring transfusional support. Patient was noted to have Hgb of 5.8 and was give 2UPRBC. Overnight patient poorly responded and decreased to 4.8. Patient was seen by cardiology and hematology/oncology today and decision to transfuse, perform LExt CT, and transfer to telemetry was made. Patient was noted to have worsening hematoma of the R leg with taughtness increasing over the compartments today. Patient is to be admitted for likely acute blood loss anemia from said hematoma. Patient currently reports pain in his R leg due to the tautness, but otherwise denies any lightheadedness/dizziness, SOB, chest pain, palpitations, abdominal pain. Patient denies any overt trauma at this time OBJECTIVE: Vital Signs Temperature 97.9 F 05/08/20 13:35 Pulse Rate 79 05/08/20 13:35 Respiratory Rate 19 05/08/20 13:35 Blood Pressure 114/46 L 05/08/20 13:35 O2 Sat by Pulse Oximetry (%) 98 05/08/20 13:35 PE: GENERAL: Awake, alert, and fully oriented, NAD HEENT: [place], EOMI, pallor noted, MMM LUNGS: CTA bilaterally. No wheezes, and no crackles. No accessory muscle use. HEART: RRR, 3/6 systolic murmur at LLSB, chemo port upper R chest ABDOMEN: Soft, NT/ND, normoactive bowel sounds, no guarding, no rebound, no masses. No hepatomegaly or splenomegaly. LOWER EXTREMITIES: 2+ pulses, warm, well-perfused. No calf tenderness. 2+ pitting edema along right leg, none on left leg SKIN: extensive hematoma along right leg with ecchymotic changes CBC, BMP 05/08/20 09:45 05/08/20 06:30 Coagulation Studies 05/08/20 05/08/20 06:30 06:30 PT with INR 18.00 H INR 1.52 H PTT (Actin FS) 47.5 H Fibrinogen 191.0 L Active Medications Acetaminophen (Tylenol -) 650 mg PO Q6H PRN PRN Reason: PAIN LEVEL 1-3 Last Admin: 05/07/20 23:54 Dose: 650 mg Documented by: Furosemide (Lasix Injection -) 40 mg IVPUSH DAILY [facility] Oxycodone HCl (Roxicodone -) 5 mg PO Q6H PRN PRN Reason: PAIN LEVEL 4 - 6 Last Admin: 05/07/20 23:55 Dose: 5 mg Documented by: Sotalol HCl (Betapace -) 80 mg PO BID [facility] Last Admin: 05/08/20 10:56 Dose: 80 mg Documented by: ASSESSMENT AND PLAN: Acute Blood loss Anemia Myelodysplastic Syndrome Myeloproliferative neoplasia Atrial Fibrillation History of HTN History of HLD --Pt normally transfusion dependent with hgb ranging 7-9 periodically --Patient received 2U PRBC yesterday with poor response (Hgb 4.8 today) --Patient to receive 1U PRBC, CT lower extremities to r/o active acute bleed --CBC after each unit; likely will need more with target goal patient's baseline --Hold ASA currently due to bleed --Fibrinogen resulted with 191 today --Discussed with hem/onc to transfuse cryoprecipitate --Daily fibrinogen --Patient to transfer to telemetry --Cardiology consult appreciated: --Lasiv IV 40mg daily given and to continue --Patient may require Lasix 20mg IV hemodynamics pending due to transfusions --Monitor Plt; will transfuse 1 Plt considering clinically expanding hematoma --If worsens will consult vascular surgery for input --Continue Sotalol 80mg BID Dispo: Telemetry, transfusions, monitoring fluid status DO Bambi Manley IM
--- NOTE | 2020-05-08 15:07 | PN.HO ---
Progress Note (short form) - Note Progress Note: Scans concerning for hematoma of Right lower extremity although unclear if acute or chronic. Pending radiology to review. Fibrinogen 190 as well. Spoke with team and advised 1 unit of platelets as well as cryo. Continue to check fibrinogen daily. Flow cytometry will be sent off today and allopurinol has been started for elevated uric acid. Pending vascular surgery consult as well as there is risk for compartment syndrome and patient should be monitored very closely.
[2020-05-08] MEDS: ALLOPURINOL 300 MG TABLET (FP) PO SCH (16:15)
[2020-05-09 04:09] LABS: MCH 27.1 pg (25.7-33.7); MCHC 32.6 g/dl (32.0-35.9); MEAN CELL VOLUME 83.2 fl (80-96); MEAN PLT VOLUME 10.2 fl (7.5-11.1); PLATELET COUNT 120 K/MM3 (134-434); RBC 1.96 M/mm3 (4.00-5.60); RDW 22.6 % (11.9-15.9); WHITE BLOOD COUNT 20.8 K/mm3 (4.0-10.0)
[2020-05-09 04:14] LABS: HEMATOCRIT 16.3 % (35.4-49); HEMOGLOBIN 5.3 GM/dL (11.7-16.9)
[2020-05-09 04:28] LABS: CALCIUM 7.3 mg/dL (8.5-10.1); MAGNESIUM 1.9 mg/dL (1.8-2.4); POTASSIUM 4.2 mmol/L (3.5-5.1)
[2020-05-09 04:56] LABS: BLOOD UREA NITROGEN 20.2 mg/dL (7-18); CREATININE 0.6 mg/dL (0.55-1.3)
[2020-05-09] MEDS: SOTALOL HCL 80 MG TABLET (FP) PO SCH ×2 (10:00→21:24)
[2020-05-09] MEDS: ACETAMINOPHEN 325 MG TABLET (FP) PO PRN (10:00)
[2020-05-09] MEDS: FUROSEMIDE 40 MG/4 ML INJECTABLE VIAL IVPUSH SCH (10:00)
[2020-05-09] MEDS: ALLOPURINOL 300 MG TABLET (FP) PO SCH (10:09)
--- NOTE | 2020-05-09 10:12 | PN ---
Progress Note (short form) - Note Progress Note: Consult Specialty:: Cardiology for - History of Present Illness Chief Complaint: Bilateral LE edema History of Present Illness: 74 M MDS, AF, Moderate MR/TR/PHTN admitted for PRBCS found to have pedal edema. Right LE markedly more swollen than left, with ecchymosis over right hip and some pain- a CT was ordered by Onc. LE venous duplex also pending. His weight has been increasing, even prior to this admission. Denies SOB/CP/palps. Takes Lasix 20mg TIW at home. Also on Amlodipine which may contribute to edema. s: no cp palps dizzy; sob improving Current Medications Generic Name Dose Route Start Last Admin Trade Name Freq PRN Reason Stop Dose Admin Acetaminophen 650 mg 05/07/20 23:36 05/07/20 23:54 Tylenol - PO 650 mg Q6H PRN Administration PAIN LEVEL 1-3 Allopurinol 300 mg 05/08/20 15:00 05/08/20 16:15 Zyloprim - PO 300 mg DAILY ABBY Administration Furosemide 40 mg 05/08/20 10:34 Lasix Injection - IVPUSH DAILY ABBY Oxycodone HCl 5 mg 05/07/20 23:35 05/07/20 23:55 Roxicodone - PO 5 mg Q6H PRN Administration PAIN LEVEL 4 - 6 Sotalol HCl 80 mg 05/08/20 10:00 05/08/20 21:32 Betapace - PO Not Given BID ABBY Vital Signs Period Temp Pulse Resp BP Sys/Paredes Pulse Ox Last 24 Hr 97.7 F-98.5 F 75-90 16-20 99-114/39-53 96-99 Constitutional: Yes: No Distress, Calm Eyes: Yes: Conjunctiva Clear HENT: Yes: Atraumatic Neck: Yes: Trachea Midline Respiratory: Yes: CTA Bilaterally (no wheezing or rales) Gastrointestinal: Yes: Soft (mildly distended) Cardiovascular: Yes: Pulse Irregular JVD: Yes PMI: Non-Displaced Heart Sounds: Yes: S1, S2 (irreg) Edema: Yes Edema: LLE: 2+, RLE: 2+ Peripheral Pulses WNL: Yes Neurological: Yes: Alert, Oriented CBC, BMP 05/09/20 03:45 05/09/20 03:45 tele: sr Assessment/Plan IMP/PLAN: 74yr old man with a hx of HTN, MDS, hx of paroxysmal Afib, hemachromatosis, left ventricular diastolic dysfunction, recurring anemia, thrombocytopenia and critical carotid artery stenosis s/p CEA here for elective PRBC transfusion found to have worsened b/l LE edema and R hip pain. 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 with component of cor pulmonale/right sided failure: -echo here with nl lvef, mod phtn -remains volume overloaded on exam -cont Lasix 40mg IV daily with daily BMP and weights to monitor renal fx/lytes and clinical response to diuresis. at home was on lasix 20 three times a week, will likely need higher dose on dc. carotid stenosis s/p cea: -ASA 81mg daily when hematoma, anemia resolves htn: -stable mds: As per Oncology
[2020-05-09 10:51] LABS: HEMATOCRIT 18.8 % (35.4-49); MCH 27.2 pg (25.7-33.7); MCHC 32.5 g/dl (32.0-35.9); MEAN CELL VOLUME 83.5 fl (80-96); MEAN PLT VOLUME 10.9 fl (7.5-11.1); PLATELET COUNT 132 K/MM3 (134-434); RBC 2.26 M/mm3 (4.00-5.60); RDW 21.3 % (11.9-15.9)
[2020-05-09 11:08] LABS: INR 1.34 (0.83-1.09); PROTHROMBIN TIME (PATIENT) 15.8 SEC (9.7-13.0)
[2020-05-09 11:09] LABS: HEMOGLOBIN 6.1 GM/dL (11.7-16.9)
--- NOTE | 2020-05-09 20:36 | PN.HO ---
Progress Note, Physician History of Present Illness: Still with R hip pain. Reports that swelling is unchanged. - Current Medication List Current Medications: Active Medications Acetaminophen (Tylenol -) 650 mg PO Q6H PRN PRN Reason: PAIN LEVEL 1-3 Last Admin: 05/09/20 10:00 Dose: 650 mg Documented by: Allopurinol (Zyloprim -) 300 mg PO DAILY [facility] Last Admin: 05/09/20 10:09 Dose: 300 mg Documented by: Furosemide (Lasix Injection -) 40 mg IVPUSH DAILY [facility] Last Admin: 05/09/20 10:00 Dose: 40 mg Documented by: Oxycodone HCl (Roxicodone -) 5 mg PO Q6H PRN PRN Reason: PAIN LEVEL 4 - 6 Last Admin: 05/07/20 23:55 Dose: 5 mg Documented by: Sotalol HCl (Betapace -) 80 mg PO BID [facility] Last Admin: 05/09/20 10:00 Dose: 80 mg Documented by: - Objective Vital Signs: Vital Signs Temperature 98 F 05/09/20 18:00 Pulse Rate 79 05/09/20 18:00 Respiratory Rate 20 05/09/20 18:00 Blood Pressure 110/67 05/09/20 18:00 O2 Sat by Pulse Oximetry (%) 99 05/09/20 18:00 Constitutional: Yes: Calm Eyes: Yes: Conjunctiva Clear Respiratory: Yes: WNL Edema: Yes Edema: RLE: 2+ (L thigh w/ swelling/bruising) Labs: CBC, BMP 05/09/20 10:20 05/09/20 03:45 INR, PTT INR 1.34 (0.83-1.09) H 05/09/20 10:20 Fibrinogen 249.0 mg/dL (238-498) 05/09/20 10:20 Assessment/Plan 74M with MDS/MPN transfusion dependent, afib on sotalol admitted with spontaneous R. thigh hematoma. Plts >100. -Responded well to 1 u PRBC yesterday w/Hgb 5.3-->6.1. Also received cryo for fibrinogen 191 (249 today), Vit K for INR 1.3, and 1 unit of plts as pt was onasa -Aspirin on hold -LE negative for DVT - Vascular consult pending, monitor exam closely - On allopurinol for elevated UA. Peripheral flow pending.
[2020-05-09] MEDS: oxyCODONE HCL 5 MG TABLET PO PRN (21:24)
--- NOTE | 2020-05-09 22:25 | PN ---
Physical Exam: SUBJECTIVE: Patient seen and examined at bedside, now ambulating around room, R thigh hematoma improving, Hgb improved 6.1. VSS. OBJECTIVE: Vital Signs Period Temp Pulse Resp BP Sys/Paredes Pulse Ox Last 24 Hr 97.7 F-98.4 F 78-87 18-20 100-113/42-67 96-99 GENERAL: The patient is awake, alert, and fully oriented, in no acute distress. HEENT NC/AT, cachectic, pale NECK: Trachea midline, full range of motion, supple. LUNGS: bibasilar crackles HEART: Regular rate and rhythm, S1, S2 without murmur, rub or gallop. ABDOMEN: Soft, nontender, nondistended, normoactive bowel sounds, no guarding, no rebound, no hepatosplenomegaly, no masses. EXTREMITIES: 2+ pulses, warm, well-perfused, 2+ pitting edema RLE>LLE, R thigh bruising NEUROLOGICAL: Cranial nerves II through XII grossly intact. Normal speech, gait not observed. PSYCH: Normal mood, normal affect. SKIN: Warm, dry, normal turgor, no rashes or lesions noted Laboratory Results - last 24 hr 05/07/20 05/08/20 05/09/20 10:00 10:29 03:45 WBC RBC Hgb Hct MCV MCH MCHC RDW Plt Count MPV Haptoglobin < 10 L PT with INR INR PTT (Actin FS) Fibrinogen Sodium 143 Potassium 4.2 Chloride 110 H Carbon Dioxide 29 Anion Gap 5 L BUN 20.2 H Creatinine 0.6 Est GFR (CKD-EPI)AfAm 113.99 Est GFR (CKD-EPI)NonAf 98.35 Random Glucose 89 Calcium 7.3 L Magnesium 1.9 Blood Type B POSITIVE Antibody Screen Negative Crossmatch See Detail 05/09/20 05/09/20 05/09/20 03:45 10:20 10:20 WBC 20.8 H 23.0 H RBC 1.96 L 2.26 L Hgb 5.3 L* 6.1 L* Hct 16.3 L 18.8 L D MCV 83.2 83.5 MCH 27.1 27.2 MCHC 32.6 32.5 RDW 22.6 H 21.3 H Plt Count 120 L 132 L MPV 10.2 10.9 Haptoglobin PT with INR INR PTT (Actin FS) Fibrinogen 249.0 Sodium Potassium Chloride Carbon Dioxide Anion Gap BUN Creatinine Est GFR (CKD-EPI)AfAm Est GFR (CKD-EPI)NonAf Random Glucose Calcium Magnesium Blood Type Antibody Screen Crossmatch 05/09/20 05/09/20 10:20 10:20 WBC RBC Hgb Hct MCV MCH MCHC RDW Plt Count MPV Haptoglobin PT with INR 15.80 H INR 1.34 H PTT (Actin FS) 34.0 Fibrinogen Sodium Potassium Chloride Carbon Dioxide Anion Gap BUN Creatinine Est GFR (CKD-EPI)AfAm Est GFR (CKD-EPI)NonAf Random Glucose Calcium Magnesium Blood Type Antibody Screen Crossmatch Active Medications Generic Name Dose Route Start Last Admin Trade Name Freq PRN Reason Stop Dose Admin Acetaminophen 650 mg 05/07/20 23:36 05/09/20 10:00 Tylenol - PO 650 mg Q6H PRN Administration PAIN LEVEL 1-3 Allopurinol 300 mg 05/08/20 15:00 05/09/20 10:09 Zyloprim - PO 300 mg DAILY ABBY Administration Furosemide 40 mg 05/08/20 10:34 05/09/20 10:00 Lasix Injection - IVPUSH 40 mg DAILY ABBY Administration Oxycodone HCl 5 mg 05/07/20 23:35 05/09/20 21:24 Roxicodone - PO 5 mg Q6H PRN Administration PAIN LEVEL 4 - 6 Sotalol HCl 80 mg 05/08/20 10:00 05/09/20 21:24 Betapace - PO 80 mg BID ABBY Administration ASSESSMENT/PLAN: 74 M MDS/MPN, transfusion dependent HTN HLD Chronic pain Plan: Transfuse to achieve Hgb >6.0 (7 is baseline), avoid over transfusion d/t underlying CHFE Lasix daily Monitor cBC/fibrinogen (improved) Cont. Allopurinol Heme Onc following DVT ppx: SCD Visit type - Emergency Visit Emergency Visit: Yes ED Registration Date: 05/07/20 Care time: The patient presented to the Emergency Department on the above date and was hospitalized for further evaluation of their emergent condition. - New Patient This patient is new to me today: Yes Date on this admission: 05/09/20 - Critical Care Critical Care patient: No - Discharge Referral Referred to [facility] Med P.C.: No - Medication Review Med list reviewed for High Risk Meds patients 65 and older: Yes
[2020-05-10 07:03] LABS: EOS % 1.8 % (0-4.5); HEMATOCRIT 20.1 % (35.4-49); LYMPH % 8.6 % (8-40); MCH 26.7 pg (25.7-33.7); MCHC 31.7 g/dl (32.0-35.9); MEAN CELL VOLUME 84.1 fl (80-96); MEAN PLT VOLUME 10.2 fl (7.5-11.1); MONO % 1.3 % (3.8-10.2); NEUT % 86.3 % (42.8-82.8); PLATELET COUNT 104 K/MM3 (134-434); RBC 2.39 M/mm3 (4.00-5.60); RDW 20.6 % (11.9-15.9); WHITE BLOOD COUNT 25.1 K/mm3 (4.0-10.0)
[2020-05-10 07:34] LABS: HEMOGLOBIN 6.4 GM/dL (11.7-16.9)
[2020-05-10 07:36] LABS: ALBUMIN 3.1 g/dl (3.4-5.0); BILIRUBIN,TOTAL 1.3 mg/dL (0.2-1); CALCIUM 7.4 mg/dL (8.5-10.1); CREATININE 0.7 mg/dL (0.55-1.3); POTASSIUM 4.6 mmol/L (3.5-5.1); TOT PROT 5.1 g/dl (6.4-8.2)
[2020-05-10] MEDS: SOTALOL HCL 80 MG TABLET (FP) PO SCH ×2 (09:10→21:10)
[2020-05-10] MEDS: ALLOPURINOL 300 MG TABLET (FP) PO SCH (09:11)
[2020-05-10] MEDS: FUROSEMIDE 40 MG/4 ML INJECTABLE VIAL IVPUSH SCH (09:11)
--- NOTE | 2020-05-10 10:42 | PN ---
Progress Note (short form) - Note Progress Note: Consult Specialty:: Cardiology for - History of Present Illness Chief Complaint: Bilateral LE edema History of Present Illness: 74 M MDS, AF, Moderate MR/TR/PHTN admitted for PRBCS found to have pedal edema. Right LE markedly more swollen than left, with ecchymosis over right hip and some pain- a CT was ordered by Onc. LE venous duplex also pending. His weight has been increasing, even prior to this admission. Denies SOB/CP/palps. Takes Lasix 20mg TIW at home. Also on Amlodipine which may contribute to edema. s: no cp palps dizzy; sob improving, still with some le edema Current Medications Generic Name Dose Route Start Last Admin Trade Name Freq PRN Reason Stop Dose Admin Acetaminophen 650 mg 05/07/20 23:36 05/09/20 10:00 Tylenol - PO 650 mg Q6H PRN Administration PAIN LEVEL 1-3 Allopurinol 300 mg 05/08/20 15:00 05/10/20 09:11 Zyloprim - PO 300 mg DAILY ABBY Administration Furosemide 40 mg 05/08/20 10:34 05/10/20 09:11 Lasix Injection - IVPUSH 40 mg DAILY ABBY Administration Furosemide 40 mg 05/10/20 16:00 Lasix Injection - IVPUSH 05/10/20 16:01 ONCE ONE Oxycodone HCl 5 mg 05/07/20 23:35 05/09/20 21:24 Roxicodone - PO 5 mg Q6H PRN Administration PAIN LEVEL 4 - 6 Sotalol HCl 80 mg 05/08/20 10:00 05/10/20 09:10 Betapace - PO 80 mg BID ABBY Administration Vital Signs Period Temp Pulse Resp BP Sys/Paredes Pulse Ox Last 24 Hr 97.9 F-98.3 F 71-79 18-20 108-129/52-67 97-99 Constitutional: Yes: No Distress, Calm Eyes: Yes: Conjunctiva Clear HENT: Yes: Atraumatic Neck: Yes: Trachea Midline Respiratory: Yes: CTA Bilaterally (no wheezing or rales) Gastrointestinal: Yes: Soft (mildly distended) Cardiovascular: Yes: Pulse Irregular JVD: Yes PMI: Non-Displaced Heart Sounds: Yes: S1, S2 (irreg) Edema: Yes Edema: LLE: 2+, RLE: 2+ Peripheral Pulses WNL: Yes Neurological: Yes: Alert, Oriented CBC, BMP 05/10/20 05:45 05/10/20 05:45 tele: sr Assessment/Plan IMP/PLAN: 74yr old man with a hx of HTN, MDS, hx of paroxysmal Afib, hemachromatosis, left ventricular diastolic dysfunction, recurring anemia, thrombocytopenia and critical carotid artery stenosis s/p CEA here for elective PRBC transfusion found to have worsened b/l LE edema and R hip pain. 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 with component of cor pulmonale/right sided failure: -echo here with nl lvef, mod phtn -remains volume overloaded on exam, cr stable, will give additional dose of iv lasix this afternoon -daily BMP and weights to monitor renal fx/lytes and clinical response to diuresis. at home was on lasix 20 three times a week, will likely need higher dose on dc. carotid stenosis s/p cea: -ASA 81mg daily when hematoma, anemia resolves htn: -stable mds: As per Oncology spontaneous thigh hematoma: -resolving
[2020-05-10 11:41] LABS: ANISOCYTOSIS 2+; MACROCYTOSIS 1+; PLATELET ESTIMATE DECREASED
--- NOTE | 2020-05-10 13:12 | PN ---
Progress Note (short form) - Note Progress Note: SUBJECTIVE: Seen and examined at bedside. Hemoglobin 6.4 this morning. Patient denies shortness of breath. Markedly swollen lower extremities right greater than left with clear lungs. Breathing comfortably on room air OBJECTIVE Last Vital Signs Temp Pulse Resp BP Pulse Ox 97.9 F 78 18 123/67 97 05/10/20 10:00 05/10/20 10:00 05/10/20 10:00 05/10/20 10:00 05/10/20 10:00 PE: GEN: NAD HEENT: NC/AT PEARLL RESP: CTAB CARDS: RRR, -MRG ABD: soft, nt/nd +BS EXT: 4+ edema R>L Neuro: Non-focal, A&OX3 Labs/Imaging: reviewed ASSESSMENT/PLAN 74-year-old male history of transfusion dependent MDS, A. fib, pulmonary hyperte nsion presented for PRBC transfusion and was found to have severe anemia due to right lower extremity hematoma #Symptomatic acute blood loss anemia secondary to hematoma with underlying transfusion dependent MDS Status post cryoprecipitate, platelets and 3 units PRBC Hematology on board: Appreciate recommendations Given significant edema will further diuresis prior to giving additional units of blood Hold aspirin Continue allopurinol Anagrelide per hematology #Acute on chronic diastolic valvular CHF with right-sided failure Cardiology on board: Appreciate recommendations will receive 2 doses of Lasix today #A. fib Continue sotalol Holding aspirin secondary to bleed Visit type - Emergency Visit Emergency Visit: Yes ED Registration Date: 05/07/20 Care time: The patient presented to the Emergency Department on the above date and was hospitalized for further evaluation of their emergent condition. - New Patient This patient is new to me today: Yes Date on this admission: 05/10/20 - Critical Care Critical Care patient: No - Medication Review Med list reviewed for High Risk Meds patients 65 and older: Yes
[2020-05-10] MEDS: TAMSULOSIN HCL 0.4 MG CAP PO SCH (13:47)
[2020-05-10] MEDS ORDERED: FUROSEMIDE 40 MG/4 ML INJECTABLE VIAL IVPUSH ONE (16:00)
--- NOTE | 2020-05-10 16:57 | PN.HO ---
Progress Note, Physician History of Present Illness: Feels slightly less pain in R. thigh. Swelling unchanged. - Current Medication List Current Medications: Active Medications Acetaminophen (Tylenol -) 650 mg PO Q6H PRN PRN Reason: PAIN LEVEL 1-3 Last Admin: 05/09/20 10:00 Dose: 650 mg Documented by: Allopurinol (Zyloprim -) 300 mg PO DAILY [facility] Last Admin: 05/10/20 09:11 Dose: 300 mg Documented by: Furosemide (Lasix Injection -) 40 mg IVPUSH DAILY [facility] Last Admin: 05/10/20 09:11 Dose: 40 mg Documented by: Oxycodone HCl (Roxicodone -) 5 mg PO Q6H PRN PRN Reason: PAIN LEVEL 4 - 6 Last Admin: 05/09/20 21:24 Dose: 5 mg Documented by: Sotalol HCl (Betapace -) 80 mg PO BID [facility] Last Admin: 05/10/20 09:10 Dose: 80 mg Documented by: Tamsulosin HCl (Flomax -) 0.4 mg PO DAILY [facility] Last Admin: 05/10/20 13:47 Dose: 0.4 mg Documented by: - Objective Vital Signs: Vital Signs Temperature 98.6 F 05/10/20 14:00 Pulse Rate 76 05/10/20 14:00 Respiratory Rate 20 05/10/20 14:00 Blood Pressure 123/55 L 05/10/20 14:00 O2 Sat by Pulse Oximetry (%) 98 05/10/20 14:00 Constitutional: Yes: No Distress, Calm Eyes: Yes: Conjunctiva Clear Respiratory: Yes: Regular Extremities: Yes: Other (R thigh with swelling and ecchymosis. distal pulses + warm) Labs: CBC, BMP 05/10/20 05:45 05/10/20 05:45 INR, PTT INR 1.34 (0.83-1.09) H 05/09/20 10:20 Fibrinogen 249.0 mg/dL (238-498) 05/09/20 10:20 Assessment/Plan 74M with MDS/MPN transfusion dependent, afib on sotalol admitted with spon taneous R. thigh hematoma. Doing well. Hgb stable today 6.1-->6.4. -Responded well to 1 u PRBC on 05/08. Also received cryo for fibrinogen 191 (249 today), Vit K for INR 1.3, and 1 unit of plts as pt was on asa -Aspirin on hold -LE negative for DVT - Vascular consult pending, monitor exam closely - On allopurinol for elevated UA. Peripheral flow pending.
[2020-05-10] MEDS: oxyCODONE HCL 5 MG TABLET PO PRN (21:10)
--- NOTE | 2020-05-11 09:29 | PN ---
Physical Exam: SUBJECTIVE: Patient seen and examined this AM. No new complaints; R thigh remains swollen but pain improved. Denies any chest pain or SOB. OBJECTIVE: Vital Signs Period Temp Pulse Resp BP Sys/Paredes Pulse Ox Last 24 Hr 97.9 F-98.8 F 72-81 18-20 118-136/50-68 95-98 GENERAL: A&Ox3, NAD HEAD: NCTA EYES: PERRL, EOMI ENT: MMM NECK: Supple LUNGS: Diminished breath sounds at the base, no wheezes HEART: Regular rate and rhythm, S1, S2, 3/6 systolic murmur at Left midsternal border, chemo port R chest ABDOMEN: Obese, Soft, nontender, nondistended, + bowel sounds, no guarding EXTREMITIES: 2+ b/l nonpitting edema R> L, R lateral Gluteal area hematoma NEUROLOGICAL: Cranial nerves II through XII grossly intact. moving all extremities SKIN: Warm, dry Laboratory Last Values WBC 25.1 K/mm3 (4.0-10.0) H 05/10/20 05:45 RBC 2.39 M/mm3 (4.00-5.60) L 05/10/20 05:45 Hgb 6.4 GM/dL (11.7-16.9) L* 05/10/20 05:45 Hct 20.1 % (35.4-49) L 05/10/20 05:45 MCV 84.1 fl (80-96) 05/10/20 05:45 MCH 26.7 pg (25.7-33.7) 05/10/20 05:45 MCHC 31.7 g/dl (32.0-35.9) L 05/10/20 05:45 RDW 20.6 % (11.9-15.9) H 05/10/20 05:45 Plt Count 104 K/MM3 (134-434) L D 05/10/20 05:45 MPV 10.2 fl (7.5-11.1) 05/10/20 05:45 Absolute Neuts (auto) 21.7 K/mm3 (1.5-8.0) H 05/10/20 05:45 Neutrophils % 86.3 % (42.8-82.8) H 05/10/20 05:45 Neutrophils % (Manual) 89.0 % (42.8-82.8) H 05/10/20 05:45 Band Neutrophils % 4.0 % 05/10/20 05:45 Lymphocytes % 8.6 % (8-40) D 05/10/20 05:45 Lymphocytes % (Manual) 5.0 % (8-40) L D 05/10/20 05:45 Monocytes % 1.3 % (3.8-10.2) L 05/10/20 05:45 Monocytes % (Manual) 0 % (3.8-10.2) L D 05/10/20 05:45 Eosinophils % 1.8 % (0-4.5) 05/10/20 05:45 Eosinophils % (Manual) 2.0 % (0-4.5) 05/10/20 05:45 Basophils % 2.0 % (0-2.0) 05/10/20 05:45 Basophils % (Manual) 0.0 % (0-2.0) 05/10/20 05:45 Myelocytes % (Man) 0 % (0-2) 05/10/20 05:45 Promyelocytes % (Man) 0 % (0-2) 05/10/20 05:45 Blast Cells % (Manual) 0 % (0-0) 05/10/20 05:45 Nucleated RBC % 0 % (0-0) 05/10/20 05:45 Metamyelocytes 0 % (0-2) 05/10/20 05:45 Hypochromia 2+ 05/10/20 05:45 Platelet Estimate Decreased 05/10/20 05:45 Platelet Comment Present 05/07/20 10:00 Polychromasia 0 05/10/20 05:45 Poikilocytosis 1+ 05/10/20 05:45 Basophilic Stippling 1+ 05/07/20 10:00 Anisocytosis 2+ 05/10/20 05:45 Microcytosis 1+ 05/10/20 05:45 Macrocytosis 1+ 05/10/20 05:45 Spherocytes 1+ 05/07/20 10:00 Target Cells 1+ 05/07/20 10:00 Tear Drop Cells 1+ 05/07/20 10:00 Stomatocytes 1+ 05/07/20 10:00 Haptoglobin < 10 mg/dL (34-355) L 05/08/20 10:29 PT with INR 15.80 SEC (9.7-13.0) H 05/09/20 10:20 INR 1.34 (0.83-1.09) H 05/09/20 10:20 PTT (Actin FS) 34.0 SECONDS (25.2-36.5) 05/09/20 10:20 Fibrinogen 249.0 mg/dL (238-498) 05/09/20 10:20 Sodium 140 mmol/L (136-145) 05/10/20 05:45 Potassium 4.6 mmol/L (3.5-5.1) 05/10/20 05:45 Chloride 108 mmol/L (98-107) H 05/10/20 05:45 Carbon Dioxide 25 mmol/L (21-32) 05/10/20 05:45 Anion Gap 7 MMOL/L (8-16) L 05/10/20 05:45 BUN 24.0 mg/dL (7-18) H 05/10/20 05:45 Creatinine 0.7 mg/dL (0.55-1.3) 05/10/20 05:45 Est GFR (CKD-EPI)AfAm 106.99 05/10/20 05:45 Est GFR (CKD-EPI)NonAf 92.31 05/10/20 05:45 Random Glucose 78 mg/dL (74-106) 05/10/20 05:45 Uric Acid 11.1 mg/dL (2.6-7.2) H 05/08/20 06:30 Calcium 7.4 mg/dL (8.5-10.1) L 05/10/20 05:45 Magnesium 1.9 mg/dL (1.8-2.4) 05/09/20 03:45 Total Bilirubin 1.3 mg/dL (0.2-1) H 05/10/20 05:45 AST 22 U/L (15-37) 05/10/20 05:45 ALT 10 U/L (13-61) L 05/10/20 05:45 Alkaline Phosphatase 75 U/L (45-117) 05/10/20 05:45 LD Total 612 U/L (87-246) H 05/08/20 06:30 Total Protein 5.1 g/dl (6.4-8.2) L 05/10/20 05:45 Albumin 3.1 g/dl (3.4-5.0) L 05/10/20 05:45 Stool Occult Blood Negative (NEGATIVE) 05/09/20 04:00 SARS-CoV-2 (PCR) Negative (Negative) 05/08/20 11:00 Blood Type B POSITIVE 05/07/20 10:00 Antibody Screen Negative 05/07/20 10:00 Crossmatch See Detail 05/07/20 10:00 ASSESSMENT/PLAN: 74 y/o M PMHx Transfusion dependent MDS/MPN, AFib (on ASA, Not on AC due to anemia), pulmonary HTN, LV Diastolic dysfunction presented for outpatient PRBC transfusion and admitted for anemia due to RLE hematoma. Patient received 2u pRBC without appropriate response requiring admission and transfusion of one additional unit and IV Diuresis. Patient was evaluated by cardiology, ASA was held as imaging revealed RLE hematoma. Hematology consulted for Acute blood loss anemia requiring blood products. #Acute blood loss anemia -In the setting of RLE hematoma on imaging (Duplex negative) with underlying transfusion dependent MDS, now s/p 3u pRBCs, cryoprecipitate, platelets, vitamin K x 1; Hgb and Fibrogen responded appropriately -Would hold off on further transfusions for now unless signs of end organ damage -Follow direct sybil test to r/o delayed hemolytic transfusion reaction -Follow Flow Cytometry -Analgesia -IV Diuresis to avoid fluid overload -ASA on hold as per Cardio -Hold Anagrelide -Serial RLE Exams to monitor for comparment syndrome -Allopurinol for elevated Uric Acid -Vascular evaluation pending; Cardio evaluation appreciated -Daily CBC, Fibrinogen, uric acid, LFTs -Tele Visit type - Emergency Visit Emergency Visit: Yes ED Registration Date: 05/07/20 Care time: The patient presented to the Emergency Department on the above date and was hospitalized for further evaluation of their emergent condition. - New Patient This patient is new to me today: Yes Date on this admission: 05/14/20 - Critical Care Critical Care patient: No - Discharge Referral Referred to [facility] Med P.C[facility] No - Medication Review Med list reviewed for High Risk Meds patients 65 and older: Yes ATTENDING PHYSICIAN STATEMENT I saw and evaluated the patient. I reviewed the resident's note and discussed the case with the resident. I agree with the resident's findings and plan as documented. SUBJECTIVE: OBJECTIVE: ASSESSMENT AND PLAN:
[2020-05-11] MEDS ORDERED: PT OWN MED DRAWER 7, Y5N ONE (09:35)
[2020-05-11] MEDS: SOTALOL HCL 80 MG TABLET (FP) PO SCH ×2 (09:38→21:04)
[2020-05-11] MEDS: TAMSULOSIN HCL 0.4 MG CAP PO SCH (09:38)
[2020-05-11] MEDS: FUROSEMIDE 40 MG/4 ML INJECTABLE VIAL IVPUSH SCH (09:38)
[2020-05-11] MEDS: ALLOPURINOL 300 MG TABLET (FP) PO SCH (09:38)
--- NOTE | 2020-05-11 11:08 | PN ---
Progress Note (short form) - Note Progress Note: Consult Specialty:: Cardiology for - History of Present Illness Chief Complaint: Bilateral LE edema History of Present Illness: 74 M MDS, AF, Moderate MR/TR/PHTN admitted for PRBCS found to have pedal edema. Right LE markedly more swollen than left, with ecchymosis over right hip and some pain- a CT was ordered by Onc. LE venous duplex also pending. His weight has been increasing, even prior to this admission. Denies SOB/CP/palps. Takes Lasix 20mg TIW at home. Also on Amlodipine which may contribute to edema. s: no cp palps dizzy; sob improving, still with some le edema Current Medications Generic Name Dose Route Start Last Admin Trade Name Freq PRN Reason Stop Dose Admin Acetaminophen 650 mg 05/07/20 23:36 05/09/20 10:00 Tylenol - PO 650 mg Q6H PRN Administration PAIN LEVEL 1-3 Allopurinol 300 mg 05/08/20 15:00 05/11/20 09:38 Zyloprim - PO 300 mg DAILY [facility] Administration Furosemide 40 mg 05/08/20 10:34 05/11/20 09:38 Lasix Injection - IVPUSH 40 mg DAILY [facility] Administration Sotalol HCl 80 mg 05/08/20 10:00 05/11/20 09:38 Betapace - PO 80 mg BID [facility] Administration Tamsulosin HCl 0.4 mg 05/10/20 13:15 05/11/20 09:38 Flomax - PO 0.4 mg DAILY [facility] Administration Vital Signs Period Temp Pulse Resp BP Sys/Paredes Pulse Ox Last 24 Hr 98.1 F-98.8 F 72-81 18-20 118-136/50-68 95-98 Constitutional: Yes: No Distress, Calm Eyes: Yes: Conjunctiva Clear HENT: Yes: Atraumatic Neck: Yes: Trachea Midline Respiratory: Yes: CTA Bilaterally (no wheezing or rales) Gastrointestinal: Yes: Soft (mildly distended) Cardiovascular: Yes: Pulse Irregular JVD: Yes PMI: Non-Displaced Heart Sounds: Yes: S1, S2 (irreg) Edema: Yes Edema: LLE:1+, RLE: 1+ Peripheral Pulses WNL: Yes Neurological: Yes: Alert, Oriented CBC, BMP 05/10/20 05:45 05/10/20 05:45 tele: sr Assessment/Plan IMP/PLAN: 74yr old man with a hx of HTN, MDS, hx of paroxysmal Afib, hemachromatosis, left ventricular diastolic dysfunction, recurring anemia, thrombocytopenia and critical carotid artery stenosis s/p CEA here for elective PRBC transfusion found to have worsened b/l LE edema and R hip pain. 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 with component of cor pulmonale/right sided failure: -echo here with nl lvef, mod phtn -cont iv lasix -daily BMP and weights to monitor renal fx/lytes and clinical response to diuresis. at home was on lasix 20 three times a week, will likely need higher dose on dc. carotid stenosis s/p cea: -ASA 81mg daily when hematoma, anemia resolves htn: -stable mds: As per Oncology spontaneous thigh hematoma: -resolving -vascular consulted
--- NOTE | 2020-05-11 11:11 | PN ---
Teaching Attending Note Name of Resident: Aliya Bonilla ATTENDING PHYSICIAN STATEMENT I saw and evaluated the patient. I reviewed the resident's note and discussed the case with the resident. I agree with the resident's findings and plan as documented. Progress Note: SUBJECTIVE: Seen and examined at bedside. Pending labs. Pt denies dyspnea, CP, SOB. Edema slowly improving. OBJECTIVE Last Vital Signs Temp Pulse Resp BP Pulse Ox 98.1 F 75 18 121/68 95 05/11/20 06:00 05/11/20 06:00 05/11/20 06:00 05/11/20 06:00 05/11/20 06:00 PE: GEN: NAD HEENT: NC/AT PEARLL RESP: CTAB CARDS: RRR, -MRG ABD: soft, nt/nd +BS EXT: 3+ edema R>L Neuro: Non-focal, A&OX3 Labs/Imaging: reviewed ASSESSMENT/PLAN 74-year-old male history of transfusion dependent MDS, A. 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 fib Continue sotalol Holding aspirin secondary to bleed
[2020-05-11 11:18] LABS: BASO % 5.4 % (0-2.0); EOS % 2.2 % (0-4.5); HEMATOCRIT 20.2 % (35.4-49); LYMPH % 4.8 % (8-40); MCH 26.5 pg (25.7-33.7); MCHC 31.9 g/dl (32.0-35.9); MEAN CELL VOLUME 83.3 fl (80-96); MEAN PLT VOLUME 10.4 fl (7.5-11.1); MONO % 1.4 % (3.8-10.2); NEUT % 86.2 % (42.8-82.8); PLATELET COUNT 134 K/MM3 (134-434); RBC 2.43 M/mm3 (4.00-5.60); RDW 21.9 % (11.9-15.9); WHITE BLOOD COUNT 25.9 K/mm3 (4.0-10.0)
[2020-05-11 11:46] LABS: CALCIUM 7.6 mg/dL (8.5-10.1); CREATININE 0.6 mg/dL (0.55-1.3); POTASSIUM 4.4 mmol/L (3.5-5.1)
[2020-05-11 11:52] LABS: HEMOGLOBIN 6.5 GM/dL (11.7-16.9)
--- NOTE | 2020-05-11 11:55 | PN ---
Physical Exam: SUBJECTIVE: Patient seen this morning, reports his leg is a little bit better. No events overnight. OBJECTIVE: Vital Signs Period Temp Pulse Resp BP Sys/Paredes Pulse Ox Last 24 Hr 97.6 F-98.8 F 72-81 18-20 118-136/50-68 95-98 GENERAL: The patient is awake, alert, and fully oriented, in no acute distress. HEAD: Normal with no signs of trauma. EYES: PERRL, extraocular movements intact ENT: moist mucous membranes. LUNGS: Breath sounds equal, clear to auscultation bilaterally, no wheezes, no crackles, no accessory muscle use. HEART: Regular rate and rhythm, S1, S2 without murmur, rub or gallop. ABDOMEN: Soft, nontender, nondistended, normoactive bowel sounds, EXTREMITIES:pulses palpable, pitting edema b/l Right leg still edematous SKIN: Warm, dry, normal turgor, no rashes or lesions noted CBC, BMP 05/11/20 10:55 05/11/20 10:55 Active Medications Generic Name Dose Route Start Last Admin Trade Name Freq PRN Reason Stop Dose Admin Acetaminophen 650 mg 05/07/20 23:36 05/09/20 10:00 Tylenol - PO 650 mg Q6H PRN Administration PAIN LEVEL 1-3 Allopurinol 300 mg 05/08/20 15:00 05/11/20 09:38 Zyloprim - PO 300 mg DAILY [facility] Administration Furosemide 40 mg 05/08/20 10:34 05/11/20 09:38 Lasix Injection - IVPUSH 40 mg DAILY [facility] Administration Sotalol HCl 80 mg 05/08/20 10:00 05/11/20 09:38 Betapace - PO 80 mg BID [facility] Administration Tamsulosin HCl 0.4 mg 05/10/20 13:15 05/11/20 09:38 Flomax - PO 0.4 mg DAILY [facility] Administration ASSESSMENT/PLAN: #transfusion dependent anemia with MDS/MPN - patient has received multiple transfusions without much hgb response - Status post cryoprecipitate, platelets and 3 units PRBC - patient with a large gluteal hematoma - followed by Heme ONC - continue oxy for pain - if patient becomes SOB with any transfusion, can give extra dose of lasix - continue allopurinol # right lower extremity hematoma - CT shows extensive infiltration into muscle and fascia - will discuss with Dr. olivera - if hgb continues to drop, keep an eye for compartment syndrome #paroxysmal afib - continue Sotalol #acute on chronic CHF - echo: EF: 55-60%, RV borderline dilated - lasix 40 IV daily #carotid stenosis - on ASA but will hold Dispo: continue to monitor on tele Visit type - Emergency Visit Emergency Visit: No - New Patient This patient is new to me today: No - Critical Care Critical Care patient: No - Medication Review Med list reviewed for High Risk Meds patients 65 and older: Yes ATTENDING PHYSICIAN STATEMENT I saw and evaluated the patient. I reviewed the resident's note and discussed the case with the resident. I agree with the resident's findings and plan as documented. SUBJECTIVE: OBJECTIVE: ASSESSMENT AND PLAN:
--- NOTE | 2020-05-11 12:03 | CONSULT ---
- Consultation REQUESTING PROVIDER: Vascular Surgery -- Clark Howell CONSULT REQUEST: We have been asked to surgically evaluate this patient for Right thigh hematoma Hospitalist: Leobardo Holliday MD HPI: Called to gloria 74 yo male w/ PMHx as noted below. Presents to [facility] ED w/ c/o RLE (thigh) pain. States he noticed that his right leg was grossly swollen when he looked in the mirror. Also noticed the appearance of a bruise to lateral aspect of said leg. Admits to feeling weak, tired and becomes SOB. RLE CT: swelling/edema, large intramuscular/intrafascial hematoma involving lateral musculature of upper right thigh extending to the posterior muscles of thight --> knee. IN ED his H/H 5.6/8.2. Since admit to hospital he has received 3 pRBC, 1 PLT, 1 Cryo. Denies n/v/f/c, CP or palpitation. Denies Trauma. Denies motor or sensory deficits to RLE. PMHx: HLD, HTN, MDS/MPN, paroxysmal afib , transfusion dependent anemia PSHx: Home Meds Tamsulosin HCl 0.4 mg PO DAILY 08/31/12 Aspirin [ASA -] 81 mg PO DAILY 04/11/14 Amlodipine Besylate [Norvasc -] 5 mg PO DAILY #30 tablet 09/27/18 Sotalol HCl [Betapace -] 80 mg PO BID@0800,2000 #60 tablet 09/27/18 Anagrelide HCl [Agrylin] 2 mg PO DAILY 04/02/19 Allergies: NKDA. ROS: 12 Systems reviewed and considered negative except for what's contained in the HPI. PE: GENERAL: a&o. nad. HEAD: nc. at. EYES: PERRL, sclera anicteric, conjunctiva clear. LUNGS: unlabored respirations on room air HEART: afib ABD: soft. nt. nd UE: 2+ pulses, warm, well-perfused. No cyanosis. Cap refill <2 seconds. No peripheral edema. RLE: Thigh with ecchymosis to lateral aspect extending posteriorly towards midline (dependent). + pain. Negative:pallor/parasthesia. 3+ edema. Warm, well- perfused. No calf tenderness. Palpable femoral/pop/DP/PT. All compartments compressible. No evidence of compartment syndrome. Plantar flexion/extension intact NEUROLOGICAL: GMNVI bilat. PSYCH: Cooperative. Good eye contact. Appropriate mood and affect. Last Vital Signs Temp Pulse Resp BP Pulse Ox 97.6 F 74 18 118/56 L 96 05/11/20 10:00 05/11/20 10:00 05/11/20 10:00 05/11/20 10:00 05/11/20 10:00 CBC, BMP 05/11/20 10:55 05/11/20 10:55 INR, PTT INR 1.34 (0.83-1.09) H 05/09/20 10:20 Fibrinogen 249.0 mg/dL (238-498) 05/09/20 10:20 Laboratory Tests 05/08/20 05/09/20 11:00 04:00 Stool Occult Blood Negative SARS-CoV-2 (PCR) Negative Laboratory Tests 05/08/20 05/08/20 05/08/20 15:25 15:25 15:25 von Willebrand Activity Pending von Willebrand Antigen Pending von Willebrand Multimer Pending A/P: 74 yo male w/ h/o transfusion dependent anemia, presents to [facility] w/ RLE thigh hematoma, symptomatic anemia requiring pRBC, PLT and Cryo. Leukocytosis. No evidence of compartment syndrome -HemeOnc -- f/u f/u von Willebrand -Transfuse blood products to keep Hct > 30 -Trend WBC -Trend H/H -Hold AC -SCDs for DVT PPx -If suspect compartment syndrome recommend compartment pressures to be obtained (not needed at this time as doesn't meet criteria) -Cont medical management -Warm compress to right thigh lateral. -No surgical intervention Above plan discussed with Dr. Howell and agrees. Problem List - Problems (1) Hematoma of right thigh Code(s): S70.11XA - CONTUSION OF RIGHT THIGH, INITIAL ENCOUNTER (2) HTN (hypertension) Code(s): I10 - ESSENTIAL (PRIMARY) HYPERTENSION Qualifiers: Hypertension type: essential hypertension Qualified Code(s): I10 - Essential (primary) hypertension (3) MDS (myelodysplastic syndrome) Code(s): D46.9 - MYELODYSPLASTIC SYNDROME, UNSPECIFIED (4) Paroxysmal atrial fibrillation Code(s): I48.0 - PAROXYSMAL ATRIAL FIBRILLATION Visit type - Case Type Case Type: ED Admission - Emergency Emergency Visit: Yes ED Registration Date: 05/07/20 Care time: The patient presented to the Emergency Department on the above date and was hospitalized for further evaluation of their emergent condition. - New patient This patient is new to me today: Yes Date on this admission: 05/11/20
[2020-05-11 14:12] LABS: ANISOCYTOSIS 1+; MACROCYTOSIS 0; OVALOCYTE 1+; PLATELET ESTIMATE DECREASED; TARGET CELLS 1+; TEAR DROP CELLS 1+; TOXIC GRANULATION 2+
--- NOTE | 2020-05-11 14:32 | PN ---
Teaching Attending Note Name of Resident: Varsha Smyth ATTENDING PHYSICIAN STATEMENT I saw and evaluated the patient. I reviewed the resident's note and discussed the case with the resident. I agree with the resident's findings and plan as documented. 74M with MDS/MPN afib presented for scheduled prbc transfusion for hb 5; c/b LE edema as well as large right upper extremity hematoma -Hb stable at 6; patient asymptomatic with no signs of sob, chest pain or syncope -do not transfuse to certain "goal" hemoglobin as patient is showing signs of hemolysis with elevated t bili, LDH and low haptoglobin which is concerning for delayed transfusion reaction -please send off MIESHA/sybil to confirm -continue with daily uric acid levels, fibrinogen, PT/PTT, LFTS and cbc
[2020-05-12 08:36] LABS: HEMATOCRIT 19.7 % (35.4-49); MCH 26.6 pg (25.7-33.7); MCHC 31.5 g/dl (32.0-35.9); MEAN CELL VOLUME 84.3 fl (80-96); MEAN PLT VOLUME 11.1 fl (7.5-11.1); PLATELET COUNT 162 K/MM3 (134-434); RBC 2.33 M/mm3 (4.00-5.60); RDW 23.4 % (11.9-15.9); WHITE BLOOD COUNT 22.8 K/mm3 (4.0-10.0)
[2020-05-12 08:50] LABS: HEMOGLOBIN 6.2 GM/dL (11.7-16.9)
[2020-05-12 09:18] LABS: ALBUMIN 3.1 g/dl (3.4-5.0); BILIRUBIN,TOTAL 1.4 mg/dL (0.2-1); BLOOD UREA NITROGEN 19.8 mg/dL (7-18); CALCIUM 7.7 mg/dL (8.5-10.1); CREATININE 0.5 mg/dL (0.55-1.3); POTASSIUM 4.5 mmol/L (3.5-5.1); TOT PROT 5.2 g/dl (6.4-8.2)
[2020-05-12] MEDS: TAMSULOSIN HCL 0.4 MG CAP PO SCH (09:23)
[2020-05-12] MEDS: SOTALOL HCL 80 MG TABLET (FP) PO SCH ×2 (09:23→21:42)
[2020-05-12] MEDS: ALLOPURINOL 300 MG TABLET (FP) PO SCH (09:23)
[2020-05-12] MEDS: FUROSEMIDE 40 MG/4 ML INJECTABLE VIAL IVPUSH SCH ×2 (09:23→14:19)
--- NOTE | 2020-05-12 11:19 | PATH ---
Surgical Pathology Report Patient Name: PERLA NEGORN [facility]. Rec. #: [id number] /Age/Gender: 1945 (Age: 74) / M Account: [id number] Location: [facility] Taken: 05/08/2020 Received: 05/08/2020 Reported: 05/12/2020 Physicians: Dov Thomas M.D. Specimen(s) Received PERIPHERAL BLOOD Clinical History History of MDS (Transfusion dependent) with elevated WBC and uric acid Final Diagnosis COMPREHENSIVE FLOW PANEL performed and interpreted at [facility], [place], [place] ([id number]) shows the following: INTERPRETATION: Granulocytosis with left-shift. See comment. Comment: The history of MDS is noted. The findings are consistent with persistent disease. Please correlate clinically and morphologically. Phenotype: Granulocytes are increased with an increase in immature/left-shifted forms. However, no aberrant marker expression is noted. There is a small population of immature CD117+ cells, representing 1.5% of WBCs, that coexpress CD13 and CD33, without CD34. CD34+ blasts represent < 0.1% of WBCs. Lymphocytes are proportionally decreased but include rare B cells that appear polyclonal, NK cells and immunophenotypically normal CD4+ and CD8+ T cells in normal proportions. No evidence of a clonal lymphoid expansion. See [facility] report for additional details. Electronically Signed Aliya Morin M.D. Gross Description Received is one green top tube of peripheral blood which is sent to [facility]. DL/05/08/2020 saudi/05/08/2020
--- NOTE | 2020-05-12 11:29 | PN ---
Teaching Attending Note Name of Resident: Rosalio Mott ATTENDING PHYSICIAN STATEMENT I saw and evaluated the patient. I reviewed the resident's note and discussed the case with the resident. I agree with the resident's findings and plan as documented. Progress Note: SUBJECTIVE: Seen and examined at bedside. Denies shortness of breath, chest pain, dizziness. Hemoglobin 6.2 today. Pending Sybil test for hemolysis work- up. Continuing diuresis. Will increase Lasix dosing to twice daily OBJECTIVE Last Vital Signs Temp Pulse Resp BP Pulse Ox 97.9 F 76 18 142/61 96 05/12/20 10:00 05/12/20 10:00 05/12/20 10:00 05/12/20 10:00 05/12/20 10:00 PE: GEN: NAD HEENT: NC/AT [place]AR[place] RESP: CTAB CARDS: RRR, -MRG ABD: soft, nt/nd +BS EXT: 3+ edema R>L Neuro: Non-focal, A&OX3 Labs/Imaging: reviewed ASSESSMENT/PLAN 74-year-old male history of transfusion dependent MDS, A. fib, pulmonary hypertension presented for PRBC transfusion and was found to have severe anemia due to right lower extremity hematoma #Symptomatic acute blood loss anemia secondary to hematoma with underlying transfusion dependent MDS Do not transfuse to numerical goal but rather if symptomatic as pt is highly fluid overloaded and possibly hemolyzing Status post cryoprecipitate, platelets and 3 units PRBC Hematology on board: Appreciate recommendations Hold aspirin Continue allopurinol Anagrelide on hold per hematology #concern for hemolysis -low haptoglobin and high LDH. Possible delayed transfusion rxn -f/u sybil test (ordered) -heme on board -hgb currently stable #Acute on chronic diastolic valvular CHF with right-sided failure Cardiology on board: Appreciate recommendations increase lasix to 40mg IV bid #A. fib Continue sotalol Holding aspirin secondary to bleed
--- NOTE | 2020-05-12 11:55 | PN ---
Progress Note (short form) - Note Progress Note: Consult Specialty:: Cardiology for Chief Complaint: Bilateral LE edema s: lower ext edema improving, no chest pain, palps, dizziness, dyspnea never smoker Current Medications Generic Name Dose Route Start Last Admin Trade Name Freq PRN Reason Stop Dose Admin Acetaminophen 650 mg 05/07/20 23:36 05/09/20 10:00 Tylenol - PO 650 mg Q6H PRN Administration PAIN LEVEL 1-3 Allopurinol 300 mg 05/08/20 15:00 05/12/20 09:23 Zyloprim - PO 300 mg DAILY ABBY Administration Furosemide 40 mg 05/12/20 14:00 Lasix Injection - IVPUSH BIDLASIX ABBY Sotalol HCl 80 mg 05/08/20 10:00 05/12/20 09:23 Betapace - PO 80 mg BID ABBY Administration Tamsulosin HCl 0.4 mg 05/10/20 13:15 05/12/20 09:23 Flomax - PO 0.4 mg DAILY ABBY Administration Vital Signs Period Temp Pulse Resp BP Sys/Paredes Pulse Ox Last 24 Hr 97.7 F-98.3 F 74-82 18-20 112-142/52-70 95-98 Constitutional: Yes: No Distress, Calm Eyes: Yes: Conjunctiva Clear HENT: Yes: Atraumatic Neck: Yes: Trachea Midline Respiratory: Yes: CTA Bilaterally (no wheezing or rales) Gastrointestinal: Yes: Soft (mildly distended) Cardiovascular: Yes: Pulse Irregular JVD: Yes PMI: Non-Displaced Heart Sounds: Yes: S1, S2 (irreg) Edema: Yes Edema: LLE:trace, RLE: 1+ Peripheral Pulses WNL: Yes Neurological: Yes: Alert, Oriented Current Medications Generic Name Dose Route Start Last Admin Trade Name Freq PRN Reason Stop Dose Admin Acetaminophen 650 mg 05/07/20 23:36 05/09/20 10:00 Tylenol - PO 650 mg Q6H PRN Administration PAIN LEVEL 1-3 Allopurinol 300 mg 05/08/20 15:00 05/12/20 09:23 Zyloprim - PO 300 mg DAILY ABBY Administration Furosemide 40 mg 05/12/20 14:00 Lasix Injection - IVPUSH BIDLASIX ABBY Sotalol HCl 80 mg 05/08/20 10:00 05/12/20 09:23 Betapace - PO 80 mg BID ABBY Administration Tamsulosin HCl 0.4 mg 05/10/20 13:15 05/12/20 09:23 Flomax - PO 0.4 mg DAILY ABBY Administration tele: sr Assessment/Plan IMP/PLAN: 74yr old man with a hx of HTN, MDS, hx of paroxysmal Afib, hemachromatosis, left ventricular diastolic dysfunction, recurring anemia, thrombocytopenia and critical carotid artery stenosis s/p CEA here for elective PRBC transfusion found to have worsened b/l LE edema and R hip pain. 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 with component of cor pulmonale/right sided failure: -echo here with nl lvef, mod phtn -cont iv lasix - increased to 40 mg IV BID -daily BMP and weights to monitor renal fx/lytes and clinical response to diuresis. at home was on lasix 20 three times a week, will likely need higher dose on dc. carotid stenosis s/p cea: -ASA 81mg daily when hematoma, anemia resolves htn: -stable mds - manage per heme onc spontaneous thigh hematoma: -resolving -vascular consulted anemia - heme following - concern for hemolysis and delayed transfusion reaction, undergoing workup - monitoring H/H, avoiding transfusions for now
--- NOTE | 2020-05-12 17:20 | PN.HO ---
Progress Note (short form) - Note Progress Note: S: Pt seen and examined no new complaints. O: Last Vital Signs Temp Pulse Resp BP Pulse Ox 98.4 F 77 20 119/54 L 97 05/12/20 13:32 05/12/20 13:32 05/12/20 13:32 05/12/20 13:32 05/12/20 13:32 General: NAD HEENT: MMM CVS: S1, S2 Lungs: CTAB Abdomen: Soft, NT, ND Extremities: + Large hematoma RLE Assessment and Plan: 74 gentleman with MDS/MPN afib presented for scheduled prbc transfusion for hb 5; c/b LE edema as well as large RLE hematoma -Hb stable at 6.2; patient asymptomatic with no signs of sob, chest pain or syncope -Pending MIESHA/sybil test -continue with daily uric acid levels, fibrinogen, PT/PTT, LFTS and cbc
--- NOTE | 2020-05-12 17:24 | PN ---
Physical Exam: SUBJECTIVE: Patient seen and examined at bedside. No acute events overnight. OBJECTIVE: Vital Signs Period Temp Pulse Resp BP Sys/Paredes Pulse Ox Last 24 Hr 97.7 F-98.4 F 76-82 18-20 119-142/54-70 95-98 GENERAL: NAD HEAD: Normal with no signs of trauma. EYES: EOMI Sclera Clear. LUNGS: Clear to auscultation bilaterally HEART: +CHANEL with radiation to carotids. ABDOMEN: Soft, NDNT EXTREMITIES: 3+ pitting edema bilaterally up to upper thighs. Right leg more so than left. resolving echymosis lateral aspect right upper thigh. NEUROLOGICAL: Cranial nerves II through XII grossly intact. PSYCH: Normal mood, normal affect. Laboratory Results - last 24 hr 05/07/20 05/08/20 05/08/20 10:00 15:25 15:25 WBC RBC Hgb Hct MCV MCH MCHC RDW Plt Count MPV von Willebrand Activity 97 von Willebrand Antigen 142 Sodium Potassium Chloride Carbon Dioxide Anion Gap BUN Creatinine Est GFR (CKD-EPI)AfAm Est GFR (CKD-EPI)NonAf Random Glucose Calcium Total Bilirubin AST ALT Alkaline Phosphatase Total Protein Albumin Blood Type B POSITIVE Antibody Screen Negative Crossmatch See Detail 05/12/20 05/12/20 07:00 07:00 WBC 22.8 H RBC 2.33 L Hgb 6.2 L* Hct 19.7 L MCV 84.3 MCH 26.6 MCHC 31.5 L RDW 23.4 H Plt Count 162 D MPV 11.1 von Willebrand Activity von Willebrand Antigen Sodium 143 Potassium 4.5 Chloride 108 H Carbon Dioxide 31 Anion Gap 4 L BUN 19.8 H Creatinine 0.5 L Est GFR (CKD-EPI)AfAm 122.86 Est GFR (CKD-EPI)NonAf 106.01 Random Glucose 70 L Calcium 7.7 L Total Bilirubin 1.4 H AST 22 ALT 12 L Alkaline Phosphatase 80 Total Protein 5.2 L Albumin 3.1 L Blood Type Antibody Screen Crossmatch Active Medications Generic Name Dose Route Start Last Admin Trade Name Freq PRN Reason Stop Dose Admin Acetaminophen 650 mg 05/07/20 23:36 05/09/20 10:00 Tylenol - PO 650 mg Q6H PRN Administration PAIN LEVEL 1-3 Allopurinol 300 mg 05/08/20 15:00 05/12/20 09:23 Zyloprim - PO 300 mg DAILY ABBY Administration Furosemide 40 mg 05/12/20 14:00 05/12/20 14:19 Lasix Injection - IVPUSH 40 mg BIDLASIX ABBY Administration Sotalol HCl 80 mg 05/08/20 10:00 05/12/20 09:23 Betapace - PO 80 mg BID ABBY Administration Tamsulosin HCl 0.4 mg 05/10/20 13:15 05/12/20 09:23 Flomax - PO 0.4 mg DAILY ABBY Administration ASSESSMENT/PLAN: 74-year-old male history of transfusion dependent MDS, A. fib, pulmonary hypertension presented for PRBC transfusion and was found to have severe anemia due to right lower extremity hematoma #transfusion dependent anemia with MDS/MPN - patient has received multiple transfusions without much hgb response - Status post cryoprecipitate, platelets and 3 units PRBC - patient with a large gluteal hematoma - followed by Heme ONC---> -continue with daily uric acid levels, fibrinogen, PT/PTT, LFTS and cbc - if patient becomes SOB with any transfusion, can give extra dose of lasix. Lasix today increased to BID - continue allopurinol - Pending Conrad test for hemolysis work-up # right lower extremity hematoma - CT shows extensive infiltration into muscle and fascia - Subsiding. Continue to monitor daily #paroxysmal afib - continue Sotalol #acute on chronic CHF - echo: EF: 55-60%, RV borderline dilated - lasix 40 IV daily increased to BID #carotid stenosis - on ASA but will hold Dispo: continue to monitor on tele Visit type - Emergency Visit Emergency Visit: Yes ED Registration Date: 05/07/20 Care time: The patient presented to the Emergency Department on the above date and was hospitalized for further evaluation of their emergent condition. - New Patient This patient is new to me today: No - Critical Care Critical Care patient: No - Discharge Referral Referred to [facility] Med P.C.: No - Medication Review Med list reviewed for High Risk Meds patients 65 and older: Yes ATTENDING PHYSICIAN STATEMENT I saw and evaluated the patient. I reviewed the resident's note and discussed the case with the resident. I agree with the resident's findings and plan as documented. SUBJECTIVE: OBJECTIVE: ASSESSMENT AND PLAN:
[2020-05-13] MEDS: FUROSEMIDE 40 MG/4 ML INJECTABLE VIAL IVPUSH SCH ×2 (05:52→14:25)
[2020-05-13 07:46] LABS: HEMATOCRIT 20.1 % (35.4-49); MEAN CELL VOLUME 83.7 fl (80-96); MEAN PLT VOLUME 10.5 fl (7.5-11.1); PLATELET COUNT 296 K/MM3 (134-434); RBC 2.41 M/mm3 (4.00-5.60); RDW 23.6 % (11.9-15.9)
[2020-05-13 07:57] LABS: BLOOD UREA NITROGEN 22.3 mg/dL (7-18); CALCIUM 7.9 mg/dL (8.5-10.1); CREATININE 0.6 mg/dL (0.55-1.3); MAGNESIUM 2.3 mg/dL (1.8-2.4); PHOSPHOROUS 3.5 mg/dL (2.5-4.9); POTASSIUM 5.1 mmol/L (3.5-5.1)
[2020-05-13] MEDS: SOTALOL HCL 80 MG TABLET (FP) PO SCH ×2 (09:54→21:22)
[2020-05-13] MEDS: ALLOPURINOL 300 MG TABLET (FP) PO SCH (09:54)
[2020-05-13] MEDS: TAMSULOSIN HCL 0.4 MG CAP PO SCH (09:54)
--- NOTE | 2020-05-13 12:17 | PN ---
Progress Note (short form) - Note Progress Note: Consult Specialty:: Cardiology for Chief Complaint: Bilateral LE edema s: lower ext edema improving, R>L. no chest pain, palps, dizziness, dyspnea Current Medications Generic Name Dose Route Start Last Admin Trade Name Freq PRN Reason Stop Dose Admin Acetaminophen 650 mg 05/07/20 23:36 05/09/20 10:00 Tylenol - PO 650 mg Q6H PRN Administration PAIN LEVEL 1-3 Allopurinol 300 mg 05/08/20 15:00 05/13/20 09:54 Zyloprim - PO 300 mg DAILY ABBY Administration Furosemide 40 mg 05/12/20 14:00 05/13/20 05:52 Lasix Injection - IVPUSH 40 mg BIDLASIX ABBY Administration Sotalol HCl 80 mg 05/08/20 10:00 05/13/20 09:54 Betapace - PO 80 mg BID ABBY Administration Tamsulosin HCl 0.4 mg 05/10/20 13:15 05/13/20 09:54 Flomax - PO 0.4 mg DAILY ABBY Administration Vital Signs Period Temp Pulse Resp BP Sys/Paredes Pulse Ox Last 24 Hr 97.0 F-98.4 F 73-82 18-20 119-136/52-59 94-98 Constitutional: Yes: No Distress, Calm Eyes: Yes: Conjunctiva Clear HENT: Yes: Atraumatic Neck: Yes: Trachea Midline Respiratory: Yes: CTA Bilaterally (no wheezing or rales) Gastrointestinal: Yes: Soft (mildly distended) Cardiovascular: Yes: Pulse Irregular JVD: Yes PMI: Non-Displaced Heart Sounds: Yes: S1, S2 (irreg) Edema: Yes Edema: LLE:trace, RLE: 1+ Peripheral Pulses WNL: Yes Neurological: Yes: Alert, Oriented tele: sr Assessment/Plan IMP/PLAN: 74yr old man with a hx of HTN, MDS, hx of paroxysmal Afib, hemachromatosis, left ventricular diastolic dysfunction, recurring anemia, thrombocytopenia and critical carotid artery stenosis s/p CEA here for elective PRBC transfusion found to have worsened b/l LE edema and R hip pain. 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 with component of cor pulmonale/right sided failure: -echo here with nl lvef, mod phtn -cont iv lasix - increased to 40 mg IV BID on 05/12 -daily BMP and weights to monitor renal fx/lytes and clinical response to diuresis. at home was on lasix 20 three times a week, will likely need higher dose on dc. carotid stenosis s/p cea: -ASA 81mg daily when hematoma, anemia resolves htn: -stable mds - manage per heme onc spontaneous thigh hematoma: -resolving -vascular consulted anemia - heme following - concern for hemolysis, less likely transfusion reaction, also with hematoma - monitoring H/H, avoiding transfusions for now
--- NOTE | 2020-05-13 13:50 | PN ---
Teaching Attending Note Name of Resident: Rosalio Mott ATTENDING PHYSICIAN STATEMENT I saw and evaluated the patient. I reviewed the resident's note and discussed the case with the resident. I agree with the resident's findings and plan as documented. SUBJECTIVE: Seen and examined at bedside. Denies shortness of breath, chest pain, dizziness. Hemoglobin 6.3 today. Sybil test negative. Edema significantly improved in left lower extremity but severe edema remains in the right lower extremity. White blood cell count now greater than 30 OBJECTIVE Last Vital Signs Temp Pulse Resp BP Pulse Ox 97.9 F 80 16 128/58 L 100 05/13/20 10:00 05/13/20 10:00 05/13/20 10:00 05/13/20 10:00 05/13/20 10:00 PE: GEN: NAD HEENT: NC/AT [place] RESP: CTAB CARDS: RRR, -MRG ABD: soft, nt/nd +BS EXT: 3+ edema R>L Neuro: Non-focal, A&OX3 Labs/Imaging: reviewed ASSESSMENT/PLAN 74-year-old male history of transfusion dependent MDS, A. fib, pulmonary hypertension presented for PRBC transfusion and was found to have severe anemia due to right lower extremity hematoma #Symptomatic acute blood loss anemia secondary to hematoma with underlying transfusion dependent MDS Do not transfuse to numerical goal but rather if symptomatic as pt is highly fluid overloaded and possibly hemolyzing Status post cryoprecipitate, platelets and 3 units PRBC Hematology on board: Appreciate recommendations Hold aspirin Continue allopurinol Anagrelide on hold per hematology #Leukamoid rxn -heme on board: appreciate recs -no fever, sign of infection at this time. In setting of MDS and agressive diuresis -if fever or continued increase may need to reimage RLE #concern for hemolysis: Sybil test negative -low haptoglobin and high LDH. 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 fib Continue sotalol Holding aspirin secondary to bleed
[2020-05-13 15:11] VITALS: BMI 22.1
[2020-05-13 16:05] LABS: HEMOGLOBIN 6.3 GM/dL (11.7-16.9); WHITE BLOOD COUNT 30.2 K/mm3 (4.0-10.0)
--- NOTE | 2020-05-13 17:34 | PN.HO ---
Progress Note (short form) - Note Progress Note: Patient seen and examined Ambulating Reports rt. gluteal hematoma Last Vital Signs Temp Pulse Resp BP Pulse Ox 98.7 F 81 17 128/60 100 05/13/20 18:00 05/13/20 18:00 05/13/20 18:00 05/13/20 18:00 05/13/20 10:00 Cor: RSR, No murmurs, No gallops Lungs: Clear to P&A Abd: Soft, Normal bowel sounds, No organomegaly Ext:No significant edema Labs/Meds reviewed A/P 74 y/o patient with RARS -t , transfusion dependent, now admitted with rt, gluteal hematoma also with splenomegaly Flowcytometry -- Left shift Hgb 6.3 Conrad negative Aspirin stopped May need to resume anagrelide based on platelet count May need to transfuse prior to discharge
--- NOTE | 2020-05-13 18:24 | PN ---
Physical Exam: SUBJECTIVE: Patient seen and examined at bedside. No acute events overnight. OBJECTIVE: Vital Signs Period Temp Pulse Resp BP Sys/Paredes Pulse Ox Last 24 Hr 97.9 F-98.4 F 73-82 16-20 110-136/48-59 94-100 GENERAL: No acute distress HEAD: Normal with no signs of trauma. EYES: EOMI Sclera Clear. LUNGS: Clear to auscultation bilaterally HEART: +CHANEL with radiation to carotids. ABDOMEN: Soft, NDNT EXTREMITIES: 2+ pitting edema right lower extremity up to thigh. Echymosis lateral aspect right extremity and buttock. LLE 1+ edema. NEUROLOGICAL: Cranial nerves II through XII grossly intact. PSYCH: Normal mood, normal affect. Laboratory Results - last 24 hr 05/13/20 05/13/20 06:00 06:00 WBC 30.2 H* RBC 2.41 L Hgb 6.3 L* Hct 20.1 L MCV 83.7 MCH 26.0 MCHC 31.0 L RDW 23.6 H Plt Count 296 D MPV 10.5 Sodium 140 Potassium 5.1 Chloride 103 Carbon Dioxide 32 Anion Gap 5 L BUN 22.3 H Creatinine 0.6 Est GFR (CKD-EPI)AfAm 113.99 Est GFR (CKD-EPI)NonAf 98.35 Random Glucose 70 L Calcium 7.9 L Phosphorus 3.5 Magnesium 2.3 Active Medications Generic Name Dose Route Start Last Admin Trade Name Freq PRN Reason Stop Dose Admin Acetaminophen 650 mg 05/07/20 23:36 05/09/20 10:00 Tylenol - PO 650 mg Q6H PRN Administration PAIN LEVEL 1-3 Allopurinol 300 mg 05/08/20 15:00 05/13/20 09:54 Zyloprim - PO 300 mg DAILY ABBY Administration Furosemide 40 mg 05/12/20 14:00 05/13/20 14:25 Lasix Injection - IVPUSH 40 mg BIDLASIX ABBY Administration Sotalol HCl 80 mg 05/08/20 10:00 05/13/20 09:54 Betapace - PO 80 mg BID ABBY Administration Tamsulosin HCl 0.4 mg 05/10/20 13:15 05/13/20 09:54 Flomax - PO 0.4 mg DAILY ABBY Administration ASSESSMENT/PLAN: 74-year-old male history of transfusion dependent MDS, A. fib, pulmonary hypertension presented for PRBC transfusion and was found to have severe anemia due to right lower extremity hematoma #transfusion dependent anemia with MDS/MPN - patient has received multiple transfusions without much hgb response - Status post cryoprecipitate, platelets and 3 units PRBC - patient with a large gluteal hematoma - followed by Heme ONC---> -continue with daily uric acid levels, fibrinogen, PT/PTT, LFTS and cbc. May need to resume Anagrelide. - if patient becomes SOB with any transfusion, can give extra dose of lasix. Lasix 40 BID - continue allopurinol - Conrad test negative # right lower extremity hematoma - CT shows extensive infiltration into muscle and fascia - Subsiding. Continue to monitor daily #paroxysmal afib - continue Sotalol #acute on chronic CHF - echo: EF: 55-60%, RV borderline dilated - lasix 40 IV daily increased to BID #carotid stenosis - on ASA but will hold Dispo: continue to monitor on tele Visit type - Emergency Visit Emergency Visit: Yes ED Registration Date: 05/07/20 Care time: The patient presented to the Emergency Department on the above date and was hospitalized for further evaluation of their emergent condition. - New Patient This patient is new to me today: No - Critical Care Critical Care patient: No - Discharge Referral Referred to [facility] Med P.C.: No - Medication Review Med list reviewed for High Risk Meds patients 65 and older: Yes ATTENDING PHYSICIAN STATEMENT I saw and evaluated the patient. I reviewed the resident's note and discussed the case with the resident. I agree with the resident's findings and plan as documented. SUBJECTIVE: OBJECTIVE: ASSESSMENT AND PLAN:
[2020-05-14] MEDS: FUROSEMIDE 40 MG/4 ML INJECTABLE VIAL IVPUSH SCH ×2 (06:54→14:33)
[2020-05-14 08:15] LABS: BLOOD UREA NITROGEN 21.3 mg/dL (7-18); CALCIUM 8.4 mg/dL (8.5-10.1); CREATININE 0.6 mg/dL (0.55-1.3); MAGNESIUM 2.4 mg/dL (1.8-2.4); PHOSPHOROUS 4.1 mg/dL (2.5-4.9); POTASSIUM 5.7 mmol/L (3.5-5.1)
[2020-05-14 09:01] LABS: HEMATOCRIT 21.9 % (35.4-49); MCH 25.8 pg (25.7-33.7); MCHC 30.7 g/dl (32.0-35.9); MEAN CELL VOLUME 84.1 fl (80-96); MEAN PLT VOLUME 10.3 fl (7.5-11.1); PLATELET COUNT 513 K/MM3 (134-434); RDW 25.2 % (11.9-15.9)
[2020-05-14 09:11] LABS: HEMOGLOBIN 6.7 GM/dL (11.7-16.9)
[2020-05-14] MEDS: ALLOPURINOL 300 MG TABLET (FP) PO SCH (09:20)
[2020-05-14] MEDS: SOTALOL HCL 80 MG TABLET (FP) PO SCH ×2 (09:20→21:20)
[2020-05-14] MEDS: TAMSULOSIN HCL 0.4 MG CAP PO SCH (09:20)
--- NOTE | 2020-05-14 10:46 | PN ---
Physical Exam: SUBJECTIVE: Patient seen and examined this AM. No new complaints; R thigh remains swollen but pain improving. OBJECTIVE: Vital Signs Period Temp Pulse Resp BP Sys/Paredes Pulse Ox Last 24 Hr 98.0 F-98.7 F 72-81 16-18 110-133/48-60 95-96 GENERAL: A&Ox3, NAD HEAD: NCTA EYES: PERRL, EOMI ENT: MMM NECK: Supple LUNGS: Diminished breath sounds at the base, no wheezes HEART: Regular rate and rhythm, S1, S2, 3/6 systolic murmur at Left midsternal border, chemo port R chest ABDOMEN: Obese, Soft, nontender, nondistended, + bowel sounds, no guarding EXTREMITIES: 1+ b/l nonpitting edema R> L, R lateral Gluteal area hematoma NEUROLOGICAL: Cranial nerves II through XII grossly intact. moving all extremit ies SKIN: Warm, dry Laboratory Last Values WBC 37.0 K/mm3 (4.0-10.0) H* 05/14/20 06:45 RBC 2.60 M/mm3 (4.00-5.60) L 05/14/20 06:45 Hgb 6.7 GM/dL (11.7-16.9) L* 05/14/20 06:45 Hct 21.9 % (35.4-49) L 05/14/20 06:45 MCV 84.1 fl (80-96) 05/14/20 06:45 MCH 25.8 pg (25.7-33.7) 05/14/20 06:45 MCHC 30.7 g/dl (32.0-35.9) L 05/14/20 06:45 RDW 25.2 % (11.9-15.9) H 05/14/20 06:45 Plt Count 513 K/MM3 (134-434) H D 05/14/20 06:45 MPV 10.3 fl (7.5-11.1) 05/14/20 06:45 Absolute Neuts (auto) 22.3 K/mm3 (1.5-8.0) H 05/11/20 10:55 Neutrophils % 86.2 % (42.8-82.8) H 05/11/20 10:55 Neutrophils % (Manual) 78.0 % (42.8-82.8) 05/11/20 10:55 Band Neutrophils % 11.0 % 05/11/20 10:55 Lymphocytes % 4.8 % (8-40) L D 05/11/20 10:55 Lymphocytes % (Manual) 6.0 % (8-40) L 05/11/20 10:55 Monocytes % 1.4 % (3.8-10.2) L 05/11/20 10:55 Monocytes % (Manual) 0 % (3.8-10.2) L 05/11/20 10:55 Eosinophils % 2.2 % (0-4.5) 05/11/20 10:55 Eosinophils % (Manual) 1.0 % (0-4.5) 05/11/20 10:55 Basophils % 5.4 % (0-2.0) H* 05/11/20 10:55 Basophils % (Manual) 1.0 % (0-2.0) D 05/11/20 10:55 Myelocytes % (Man) 0 % (0-2) 05/11/20 10:55 Promyelocytes % (Man) 0 % (0-2) 05/11/20 10:55 Blast Cells % (Manual) 0 % (0-0) 05/11/20 10:55 Nucleated RBC % 1 % (0-0) H 05/11/20 10:55 Metamyelocytes 3 % (0-2) H D 05/11/20 10:55 Hypochromia 0 05/11/20 10:55 Toxic Granulation 2+ 05/11/20 10:55 Platelet Estimate Decreased 05/11/20 10:55 Platelet Comment Present 05/11/20 10:55 Polychromasia 1+ 05/11/20 10:55 Poikilocytosis 1+ 05/11/20 10:55 Basophilic Stippling 1+ 05/07/20 10:00 Anisocytosis 1+ 05/11/20 10:55 Microcytosis 1+ 05/11/20 10:55 Macrocytosis 0 05/11/20 10:55 Spherocytes 1+ 05/11/20 10:55 Target Cells 1+ 05/11/20 10:55 Tear Drop Cells 1+ 05/11/20 10:55 Ovalocytes 1+ 05/11/20 10:55 Stomatocytes 1+ 05/07/20 10:00 Acanthocytes (Spur) 1+ 05/11/20 10:55 Haptoglobin < 10 mg/dL (34-355) L 05/08/20 10:29 PT with INR 15.80 SEC (9.7-13.0) H 05/09/20 10:20 INR 1.34 (0.83-1.09) H 05/09/20 10:20 PTT (Actin FS) 34.0 SECONDS (25.2-36.5) 05/09/20 10:20 Fibrinogen 249.0 mg/dL (238-498) 05/09/20 10:20 von Willebrand Activity 97 % (50-200) 05/08/20 15:25 von Willebrand Antigen 142 % (50-200) 05/08/20 15:25 Sodium 140 mmol/L (136-145) 05/14/20 06:45 Potassium 5.7 mmol/L (3.5-5.1) H 05/14/20 06:45 Chloride 102 mmol/L (98-107) 05/14/20 06:45 Carbon Dioxide 34 mmol/L (21-32) H 05/14/20 06:45 Anion Gap 4 MMOL/L (8-16) L 05/14/20 06:45 BUN 21.3 mg/dL (7-18) H 05/14/20 06:45 Creatinine 0.6 mg/dL (0.55-1.3) 05/14/20 06:45 Est GFR (CKD-EPI)AfAm 113.99 05/14/20 06:45 Est GFR (CKD-EPI)NonAf 98.35 05/14/20 06:45 Random Glucose 73 mg/dL (74-106) L 05/14/20 06:45 Uric Acid 11.1 mg/dL (2.6-7.2) H 05/08/20 06:30 Calcium 8.4 mg/dL (8.5-10.1) L 05/14/20 06:45 Phosphorus 4.1 mg/dL (2.5-4.9) 05/14/20 06:45 Magnesium 2.4 mg/dL (1.8-2.4) 05/14/20 06:45 Total Bilirubin 1.4 mg/dL (0.2-1) H 05/12/20 07:00 AST 22 U/L (15-37) 05/12/20 07:00 ALT 12 U/L (13-61) L 05/12/20 07:00 Alkaline Phosphatase 80 U/L (45-117) 05/12/20 07:00 LD Total 612 U/L (87-246) H 05/08/20 06:30 Total Protein 5.2 g/dl (6.4-8.2) L 05/12/20 07:00 Albumin 3.1 g/dl (3.4-5.0) L 05/12/20 07:00 Stool Occult Blood Negative (NEGATIVE) 05/09/20 04:00 SARS-CoV-2 (PCR) Negative (Negative) 05/08/20 11:00 Blood Type B POSITIVE 05/07/20 10:00 Antibody Screen Negative 05/07/20 10:00 Direct Antiglob Test Negative (NEGATIVE) 05/11/20 12:05 Crossmatch See Detail 05/07/20 10:00 ASSESSMENT/PLAN: 74 y/o M PMHx Transfusion dependent MDS/MPN, AFib (on ASA, Not on AC due to anemia), pulmonary HTN, LV Diastolic dysfunction presented for outpatient PRBC transfusion and admitted for anemia due to RLE hematoma. Patient received 2u pRBC without appropriate response requiring admission and transfusion of one additional unit and IV Diuresis. Patient was evaluated by cardiology, ASA was held as imaging revealed RLE hematoma. Hematology consulted for Acute blood loss anemia requiring blood products. #Acute blood loss anemia -In the setting of RLE hematoma with underlying transfusion dependent MDS, now s/p 3u pRBCs, cryoprecipitate, platelets, vitamin K x 1; Hematoma now improving -Would hold off on further transfusions for now unless signs of end organ damage -Direct sybil negative, Flow Cytometry reveals left shift -Analgesia -IV Diuresis as per cardio/primary team -ASA on hold as per Cardio -Resume Anagrelide -Serial RLE Exams to monitor for comparment syndrome -Allopurinol for elevated Uric Acid -Daily CBC, Fibrinogen, uric acid, LFTs -Tele Visit type - Emergency Visit Emergency Visit: Yes ED Registration Date: 05/07/20 Care time: The patient presented to the Emergency Department on the above date and was hospitalized for further evaluation of their emergent condition. - New Patient This patient is new to me today: No - Critical Care Critical Care patient: No - Discharge Referral Referred to [facility] Med P.C[facility] No - Medication Review Med list reviewed for High Risk Meds patients 65 and older: Yes ATTENDING PHYSICIAN STATEMENT I saw and evaluated the patient. I reviewed the resident's note and discussed the case with the resident. I agree with the resident's findings and plan as documented. SUBJECTIVE: OBJECTIVE: ASSESSMENT AND PLAN:
--- NOTE | 2020-05-14 11:48 | PN ---
Progress Note (short form) - Note Progress Note: Consult Specialty:: Cardiology for - History of Present Illness Chief Complaint: Bilateral LE edema History of Present Illness: 74 M MDS, AF, Moderate MR/TR/PHTN admitted for PRBCS found to have pedal edema. Right LE markedly more swollen than left, with ecchymosis over right hip and some pain- a CT was ordered by Onc. LE venous duplex also pending. His weight has been increasing, even prior to this admission. Denies SOB/CP/palps. Takes Lasix 20mg TIW at home. Also on Amlodipine which may contribute to edema. s: no cp palps dizzy; sob improving, still with some mild le edema, almost resolved Current Medications Generic Name Dose Route Start Last Admin Trade Name Freq PRN Reason Stop Dose Admin Acetaminophen 650 mg 05/07/20 23:36 05/09/20 10:00 Tylenol - PO 650 mg Q6H PRN Administration PAIN LEVEL 1-3 Allopurinol 300 mg 05/08/20 15:00 05/14/20 09:20 Zyloprim - PO 300 mg DAILY ABBY Administration Furosemide 40 mg 05/12/20 14:00 05/14/20 06:54 Lasix Injection - IVPUSH 40 mg BIDLASIX ABBY Administration Sotalol HCl 80 mg 05/08/20 10:00 05/14/20 09:20 Betapace - PO 80 mg BID ABBY Administration Tamsulosin HCl 0.4 mg 05/10/20 13:15 05/14/20 09:20 Flomax - PO 0.4 mg DAILY ABBY Administration Vital Signs Period Temp Pulse Resp BP Sys/Paredes Pulse Ox Last 24 Hr 98.0 F-98.7 F 72-81 16-18 110-133/48-60 95-96 Constitutional: Yes: No Distress, Calm Eyes: Yes: Conjunctiva Clear HENT: Yes: Atraumatic Neck: Yes: Trachea Midline Respiratory: Yes: CTA Bilaterally (no wheezing or rales) Gastrointestinal: Yes: Soft (mildly distended) Cardiovascular: Yes: Pulse Irregular JVD: Yes PMI: Non-Displaced Heart Sounds: Yes: S1, S2 (irreg) Edema: trace Peripheral Pulses WNL: Yes Neurological: Yes: Alert, Oriented CBC, BMP 05/14/20 06:45 05/14/20 06:45 tele: sr Assessment/Plan 74yr old man with a hx of HTN, MDS, hx of paroxysmal Afib, hemachromatosis, left ventricular diastolic dysfunction, recurring anemia, thrombocytopenia and critical carotid artery stenosis s/p CEA here for elective PRBC transfusion found to have worsened b/LE edema and R hip pain. 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 at home was on lasix 20 three times a week, will likely need higher dose on dc. carotid stenosis s/p cea: -ASA 81mg daily when hematoma, anemia resolves htn: -stable mds - manage per heme onc spontaneous thigh hematoma: -resolving -vascular consulted anemia - heme following - concern for hemolysis, less likely transfusion reaction, also with hematoma - monitoring H/H, avoiding transfusions for now
--- NOTE | 2020-05-14 14:01 | PN ---
Teaching Attending Note Name of Resident: Rosalio Mott ATTENDING PHYSICIAN STATEMENT I saw and evaluated the patient. I reviewed the resident's note and discussed the case with the resident. I agree with the resident's findings and plan as documented. SUBJECTIVE: Seen and examined at bedside. Denies shortness of breath, chest pain, dizzines s. Hemoglobin 6.7 today. Edema continues to improve. WBC continues to increase now 37 OBJECTIVE Last Vital Signs Temp Pulse Resp BP Pulse Ox 98.3 F 72 18 133/59 L 96 05/14/20 06:00 05/14/20 06:00 05/14/20 06:00 05/14/20 06:00 05/14/20 06:00 PE:Per resident note Labs/Imaging: reviewed ASSESSMENT/PLAN 74-year-old male history of transfusion dependent MDS, A. fib, pulmonary hypertension presented for PRBC transfusion and was found to have severe anemia due to right lower extremity hematoma #Symptomatic acute blood loss anemia secondary to hematoma with underlying transfusion dependent MDS Do not transfuse to numerical goal but rather if symptomatic as pt is highly fluid overloaded and possibly hemolyzing Status post cryoprecipitate, platelets and 3 units PRBC Hematology on board: Appreciate recommendations Hold aspirin Continue allopurinol Restart anagrelide #Leukamoid rxn -heme on board: appreciate recs -no fever, sign of infection at this time. In setting of MDS and agressive diuresis -if fever or continued increase may need to reimage RLE #concern for hemolysis: Sybil test negative -low haptoglobin and high LDH. 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 fib Continue sotalol Holding aspirin secondary to bleed
--- NOTE | 2020-05-14 14:55 | PN ---
Teaching Attending Note Name of Resident: Varsha Smyth ATTENDING PHYSICIAN STATEMENT I saw and evaluated the patient. I reviewed the resident's note and discussed the case with the resident. I agree with the resident's findings and plan as documented. 74y M with MPN/MDS (transfusion dependent) presents for routine blood transfusion found to have a right thigh hematoma; now resolving. Course was complicated by acute CHF, currently on IV diuretics. -flow cytometry consistent with left shift -would restart home dose angrelide -encourage ambulation
--- NOTE | 2020-05-14 17:58 | PN ---
Physical Exam: SUBJECTIVE: Patient seen and examined at bedside. No acute events overnight. OBJECTIVE: Vital Signs Period Temp Pulse Resp BP Sys/Paredes Pulse Ox Last 24 Hr 98.0 F-98.7 F 72-81 17-18 128-133/58-62 95-96 GENERAL: No acute distress HEAD: Normal with no signs of trauma. EYES: EOMI Sclera Clear. LUNGS: Clear to auscultation bilaterally HEART: +CHANEL with radiation to carotids. ABDOMEN: Soft, NDNT EXTREMITIES: LLE very minimal edema. RLE still 2+ pitting edema up to thigh NEUROLOGICAL: Cranial nerves II through XII grossly intact. PSYCH: Normal mood, normal affect. Laboratory Results - last 24 hr 05/14/20 05/14/20 06:45 06:45 WBC 37.0 H* RBC 2.60 L Hgb 6.7 L* Hct 21.9 L MCV 84.1 MCH 25.8 MCHC 30.7 L RDW 25.2 H Plt Count 513 H D MPV 10.3 Sodium 140 Potassium 5.7 H Chloride 102 Carbon Dioxide 34 H Anion Gap 4 L BUN 21.3 H Creatinine 0.6 Est GFR (CKD-EPI)AfAm 113.99 Est GFR (CKD-EPI)NonAf 98.35 Random Glucose 73 L Calcium 8.4 L Phosphorus 4.1 Magnesium 2.4 Active Medications Generic Name Dose Route Start Last Admin Trade Name Freq PRN Reason Stop Dose Admin Acetaminophen 650 mg 05/07/20 23:36 05/09/20 10:00 Tylenol - PO 650 mg Q6H PRN Administration PAIN LEVEL 1-3 Allopurinol 300 mg 05/08/20 15:00 05/14/20 09:20 Zyloprim - PO 300 mg DAILY ABBY Administration Anagrelide HCl 1 mg 05/14/20 22:00 Agrylin PO BID ABBY Furosemide 40 mg 05/12/20 14:00 05/14/20 14:33 Lasix Injection - IVPUSH 40 mg BIDLASIX ABBY Administration Sotalol HCl 80 mg 05/08/20 10:00 05/14/20 09:20 Betapace - PO 80 mg BID ABBY Administration Tamsulosin HCl 0.4 mg 05/10/20 13:15 05/14/20 09:20 Flomax - PO 0.4 mg DAILY ABBY Administration ASSESSMENT/PLAN: 74-year-old male history of transfusion dependent MDS, A. fib, pulmonary hypertension presented for PRBC transfusion and was found to have severe anemia due to right lower extremity hematoma #transfusion dependent anemia with MDS/MPN - patient has received multiple transfusions without much hgb response - Status post cryoprecipitate, platelets and 3 units PRBC - patient with a large gluteal hematoma - followed by Heme ONC---> -continue with daily uric acid levels, fibrinogen, PT/PTT, LFTS and cbc. Anagrelide resumed - Case discussed with Dr Ac. Factor 8 level needed at this time to assess for bleeding risk for possible bone marrow intervention. - if patient becomes SOB with any transfusion, can give extra dose of lasix. Lasix 40 BID - continue allopurinol - Conrad test negative # right lower extremity hematoma - CT shows extensive infiltration into muscle and fascia - Subsiding. Continue to monitor daily #paroxysmal afib - continue Sotalol #acute on chronic CHF - echo: EF: 55-60%, RV borderline dilated - lasix 40 BID #carotid stenosis - on ASA but will hold Dispo: continue to monitor on tele Visit type - Emergency Visit Emergency Visit: Yes ED Registration Date: 05/07/20 Care time: The patient presented to the Emergency Department on the above date and was hospitalized for further evaluation of their emergent condition. - New Patient This patient is new to me today: No - Critical Care Critical Care patient: No - Discharge Referral Referred to [facility] Med P.C.: No - Medication Review Med list reviewed for High Risk Meds patients 65 and older: Yes ATTENDING PHYSICIAN STATEMENT I saw and evaluated the patient. I reviewed the resident's note and discussed the case with the resident. I agree with the resident's findings and plan as documented. SUBJECTIVE: OBJECTIVE: ASSESSMENT AND PLAN:
[2020-05-14] MEDS ORDERED: PT OWN MED DRAWER 7, Y5N ONE (20:51)
[2020-05-14] MEDS ORDERED: CALCIUM GLUCONATE 10% - 1,000 MG/10 ML VIAL IVPUSH ONE (20:54)
[2020-05-14] MEDS: ANAGRELIDE HCL 1 MG PO SCH (21:20)
--- NOTE | 2020-05-15 05:16 | PN ---
Progress Note, Physician Chief Complaint: feeling better Edema improved weight down tele: NSR, rare APCs - Current Medication List Current Medications: Active Medications Acetaminophen (Tylenol -) 650 mg PO Q6H PRN PRN Reason: PAIN LEVEL 1-3 Last Admin: 05/09/20 10:00 Dose: 650 mg Documented by: Allopurinol (Zyloprim -) 300 mg PO DAILY [facility] Last Admin: 05/14/20 09:20 Dose: 300 mg Documented by: Anagrelide HCl (Agrylin) 1 mg PO BID [facility] Last Admin: 05/14/20 21:20 Dose: 1 mg Documented by: Furosemide (Lasix Injection -) 40 mg IVPUSH BIDLASIX [facility] Last Admin: 05/14/20 14:33 Dose: 40 mg Documented by: Sotalol HCl (Betapace -) 80 mg PO BID [facility] Last Admin: 05/14/20 21:20 Dose: 80 mg Documented by: Tamsulosin HCl (Flomax -) 0.4 mg PO DAILY [facility] Last Admin: 05/14/20 09:20 Dose: 0.4 mg Documented by: - Objective Vital Signs: Vital Signs Temperature 98.2 F 05/15/20 02:00 Pulse Rate 71 05/15/20 02:00 Respiratory Rate 18 05/15/20 02:00 Blood Pressure 128/54 L 05/15/20 02:00 O2 Sat by Pulse Oximetry (%) 98 05/14/20 22:00 Constitutional: Yes: No Distress, Calm Eyes: Yes: Conjunctiva Clear, EOM Intact HENT: Yes: Atraumatic Neck: Yes: Supple Cardiovascular: Yes: Regular Rate and Rhythm Respiratory: Yes: CTA Bilaterally Gastrointestinal: Yes: Soft (nt, less distended) Edema: No Peripheral Pulses WNL: Yes Neurological: Yes: Alert, Oriented ...Motor Strength: WNL Labs: CBC, BMP 05/14/20 06:45 05/14/20 20:00 INR, PTT INR 1.34 (0.83-1.09) H 05/09/20 10:20 Fibrinogen 249.0 mg/dL (238-498) 05/09/20 10:20 Selected Entries 05/15/20 06:00 Weight 137 lb 9.6 oz Laboratory Tests 05/15/20 05/15/20 07:10 07:10 WBC Pending Hgb Pending Sodium 138 Potassium 5.4 H BUN 23.3 H Creatinine 0.6 Magnesium 2.4 - ....Imaging EKG: Image Reviewed Assessment/Plan Assessment/Plan 74yr old man with a hx of HTN, MDS, hx of paroxysmal Afib, hemachromatosis, left ventricular diastolic dysfunction, recurring anemia, thrombocytopenia and critical carotid artery stenosis s/p CEA here for elective PRBC transfusion found to have worsened b/LE edema and R hip pain. 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 at home was on lasix 20 three times a week, will likely need higher dose on dc. carotid stenosis s/p cea: -ASA 81mg daily when hematoma, anemia resolves htn: -stable mds: - manage per heme onc spontaneous thigh hematoma: -resolving -vascular consulted anemia: - heme following - concern for hemolysis, less likely transfusion reaction, also with hematoma - monitoring H/H, avoiding transfusions for now
[2020-05-15] MEDS: FUROSEMIDE 40 MG/4 ML INJECTABLE VIAL IVPUSH SCH (06:54)
[2020-05-15 07:53] LABS: HEMATOCRIT 21.4 % (35.4-49); MCH 26.1 pg (25.7-33.7); MCHC 30.8 g/dl (32.0-35.9); MEAN CELL VOLUME 84.8 fl (80-96); PLATELET COUNT 667 K/MM3 (134-434); RBC 2.52 M/mm3 (4.00-5.60); RDW 25.2 % (11.9-15.9); WHITE BLOOD COUNT 28.4 K/mm3 (4.0-10.0)
[2020-05-15 08:05] LABS: BLOOD UREA NITROGEN 23.3 mg/dL (7-18); CALCIUM 8.3 mg/dL (8.5-10.1); CREATININE 0.6 mg/dL (0.55-1.3); MAGNESIUM 2.4 mg/dL (1.8-2.4); PHOSPHOROUS 3.8 mg/dL (2.5-4.9); POTASSIUM 5.4 mmol/L (3.5-5.1)
[2020-05-15 08:37] LABS: HEMOGLOBIN 6.6 GM/dL (11.7-16.9)
[2020-05-15] MEDS ORDERED: PT OWN MED DRAWER 7, Y5N ONE ×3 (08:45→21:25)
[2020-05-15] MEDS: ANAGRELIDE HCL 1 MG PO SCH ×2 (10:01→21:26)
[2020-05-15] MEDS: ALLOPURINOL 300 MG TABLET (FP) PO SCH (10:01)
[2020-05-15] MEDS: SOTALOL HCL 80 MG TABLET (FP) PO SCH ×2 (10:01→21:26)
--- NOTE | 2020-05-15 11:41 | PN ---
Physical Exam: SUBJECTIVE: Patient seen and examined this AM. No new complaints; R thigh remains swollen but pain improving. OBJECTIVE: Vital Signs Period Temp Pulse Resp BP Sys/Paredes Pulse Ox Last 24 Hr 97.9 F-98.8 F 68-79 18-20 128-139/54-65 98-99 GENERAL: A&Ox3, NAD HEAD: NCTA EYES: PERRL, EOMI ENT: MMM NECK: Supple LUNGS: Diminished breath sounds at the base, no wheezes HEART: Regular rate and rhythm, S1, S2, 3/6 systolic murmur at Left midsternal border, chemo port R chest ABDOMEN: Obese, Soft, nontender, nondistended, + bowel sounds, no guarding EXTREMITIES: 1+ b/l nonpitting edema R> L, R lateral Gluteal area hematoma NEUROLOGICAL: Cranial nerves II through XII grossly intact. moving all extremiti es SKIN: Warm, dry Laboratory Last Values WBC 28.4 K/mm3 (4.0-10.0) H 05/15/20 07:10 RBC 2.52 M/mm3 (4.00-5.60) L 05/15/20 07:10 Hgb 6.6 GM/dL (11.7-16.9) L* 05/15/20 07:10 Hct 21.4 % (35.4-49) L 05/15/20 07:10 MCV 84.8 fl (80-96) 05/15/20 07:10 MCH 26.1 pg (25.7-33.7) 05/15/20 07:10 MCHC 30.8 g/dl (32.0-35.9) L 05/15/20 07:10 RDW 25.2 % (11.9-15.9) H 05/15/20 07:10 Plt Count 667 K/MM3 (134-434) H D 05/15/20 07:10 MPV 10.0 fl (7.5-11.1) 05/15/20 07:10 Absolute Neuts (auto) 22.3 K/mm3 (1.5-8.0) H 05/11/20 10:55 Neutrophils % 86.2 % (42.8-82.8) H 05/11/20 10:55 Neutrophils % (Manual) 78.0 % (42.8-82.8) 05/11/20 10:55 Band Neutrophils % 11.0 % 05/11/20 10:55 Lymphocytes % 4.8 % (8-40) L D 05/11/20 10:55 Lymphocytes % (Manual) 6.0 % (8-40) L 05/11/20 10:55 Monocytes % 1.4 % (3.8-10.2) L 05/11/20 10:55 Monocytes % (Manual) 0 % (3.8-10.2) L 05/11/20 10:55 Eosinophils % 2.2 % (0-4.5) 05/11/20 10:55 Eosinophils % (Manual) 1.0 % (0-4.5) 05/11/20 10:55 Basophils % 5.4 % (0-2.0) H* 05/11/20 10:55 Basophils % (Manual) 1.0 % (0-2.0) D 05/11/20 10:55 Myelocytes % (Man) 0 % (0-2) 05/11/20 10:55 Promyelocytes % (Man) 0 % (0-2) 05/11/20 10:55 Blast Cells % (Manual) 0 % (0-0) 05/11/20 10:55 Nucleated RBC % 1 % (0-0) H 05/11/20 10:55 Metamyelocytes 3 % (0-2) H D 05/11/20 10:55 Hypochromia 0 05/11/20 10:55 Toxic Granulation 2+ 05/11/20 10:55 Platelet Estimate Decreased 05/11/20 10:55 Platelet Comment Present 05/11/20 10:55 Polychromasia 1+ 05/11/20 10:55 Poikilocytosis 1+ 05/11/20 10:55 Basophilic Stippling 1+ 05/07/20 10:00 Anisocytosis 1+ 05/11/20 10:55 Microcytosis 1+ 05/11/20 10:55 Macrocytosis 0 05/11/20 10:55 Spherocytes 1+ 05/11/20 10:55 Target Cells 1+ 05/11/20 10:55 Tear Drop Cells 1+ 05/11/20 10:55 Ovalocytes 1+ 05/11/20 10:55 Stomatocytes 1+ 05/07/20 10:00 Acanthocytes (Spur) 1+ 05/11/20 10:55 Haptoglobin < 10 mg/dL (34-355) L 05/08/20 10:29 PT with INR 15.80 SEC (9.7-13.0) H 05/09/20 10:20 INR 1.34 (0.83-1.09) H 05/09/20 10:20 PTT (Actin FS) 34.0 SECONDS (25.2-36.5) 05/09/20 10:20 Fibrinogen 249.0 mg/dL (238-498) 05/09/20 10:20 von Willebrand Activity 97 % (50-200) 05/08/20 15:25 von Willebrand Antigen 142 % (50-200) 05/08/20 15:25 Sodium 138 mmol/L (136-145) 05/15/20 07:10 Potassium 5.4 mmol/L (3.5-5.1) H 05/15/20 07:10 Chloride 101 mmol/L (98-107) 05/15/20 07:10 Carbon Dioxide 35 mmol/L (21-32) H 05/15/20 07:10 Anion Gap 3 MMOL/L (8-16) L 05/15/20 07:10 BUN 23.3 mg/dL (7-18) H 05/15/20 07:10 Creatinine 0.6 mg/dL (0.55-1.3) 05/15/20 07:10 Est GFR (CKD-EPI)AfAm 113.99 05/15/20 07:10 Est GFR (CKD-EPI)NonAf 98.35 05/15/20 07:10 Random Glucose 84 mg/dL (74-106) 05/15/20 07:10 Uric Acid 11.1 mg/dL (2.6-7.2) H 05/08/20 06:30 Calcium 8.3 mg/dL (8.5-10.1) L 05/15/20 07:10 Phosphorus 3.8 mg/dL (2.5-4.9) 05/15/20 07:10 Magnesium 2.4 mg/dL (1.8-2.4) 05/15/20 07:10 Total Bilirubin 1.4 mg/dL (0.2-1) H 05/12/20 07:00 AST 22 U/L (15-37) 05/12/20 07:00 ALT 12 U/L (13-61) L 05/12/20 07:00 Alkaline Phosphatase 80 U/L (45-117) 05/12/20 07:00 LD Total 612 U/L (87-246) H 05/08/20 06:30 Total Protein 5.2 g/dl (6.4-8.2) L 05/12/20 07:00 Albumin 3.1 g/dl (3.4-5.0) L 05/12/20 07:00 Stool Occult Blood Negative (NEGATIVE) 05/09/20 04:00 SARS-CoV-2 (PCR) Negative (Negative) 05/08/20 11:00 Blood Type B POSITIVE 05/07/20 10:00 Antibody Screen Negative 05/07/20 10:00 Direct Antiglob Test Negative (NEGATIVE) 05/11/20 12:05 Crossmatch See Detail 05/07/20 10:00 ASSESSMENT/PLAN: 74 y/o M PMHx Transfusion dependent MDS/MPN, AFib (on ASA, Not on AC due to anemia), pulmonary HTN, LV Diastolic dysfunction presented for outpatient PRBC transfusion and admitted for anemia due to RLE hematoma. Patient received 2u pRBC without appropriate response requiring admission and transfusion of one additional unit and IV Diuresis. Patient was evaluated by cardiology, ASA was held as imaging revealed RLE hematoma. Hematology consulted for Acute blood loss anemia requiring blood products. #Acute blood loss anemia -In the setting of RLE hematoma with underlying transfusion dependent MDS, now s/p 3u pRBCs, cryoprecipitate, platelets, vitamin K x 1; Hematoma now improving -Would hold off on further transfusions for now unless signs of end organ damage -Direct sybil negative, Flow Cytometry reveals left shift -Analgesia -IV Diuresis as per cardio/primary team -ASA on hold as per Cardio -Continue Anagrelide -Serial RLE Exams to monitor for comparment syndrome -Allopurinol for elevated Uric Acid -Daily CBC, Fibrinogen, uric acid, LFTs -Tele Visit type - Emergency Visit Emergency Visit: Yes ED Registration Date: 05/07/20 Care time: The patient presented to the Emergency Department on the above date and was hospitalized for further evaluation of their emergent condition. - New Patient This patient is new to me today: Yes Date on this admission: 05/18/20 - Critical Care Critical Care patient: No - Discharge Referral Referred to [facility] Med P.C.: No - Medication Review Med list reviewed for High Risk Meds patients 65 and older: Yes ATTENDING PHYSICIAN STATEMENT I saw and evaluated the patient. I reviewed the resident's note and discussed the case with the resident. I agree with the resident's findings and plan as documented. SUBJECTIVE: OBJECTIVE: ASSESSMENT AND PLAN:
--- NOTE | 2020-05-15 14:22 | PN ---
Teaching Attending Note Name of Resident: Rosalio Mott ATTENDING PHYSICIAN STATEMENT I saw and evaluated the patient. I reviewed the resident's note and discussed the case with the resident. I agree with the resident's findings and plan as documented. SUBJECTIVE: Seen and examined at bedside. Denies shortness of breath, chest pain, dizzines s. Hemoglobin 6.7 today. Edema continues to improve. Patient developing contraction alkalosis. Lasix decreased to IV daily from twice daily OBJECTIVE Last Vital Signs Temp Pulse Resp BP Pulse Ox 97.9 F 69 20 134/65 99 05/15/20 10:00 05/15/20 10:00 05/15/20 10:00 05/15/20 10:00 05/15/20 10:00 PE:Per resident note Labs/Imaging: reviewed ASSESSMENT/PLAN 74-year-old male history of transfusion dependent MDS, A. fib, pulmonary hypertension presented for PRBC transfusion and was found to have severe anemia due to right lower extremity hematoma #Symptomatic acute blood loss anemia secondary to hematoma with underlying transfusion dependent MDS Do not transfuse to numerical goal but rather if symptomatic as pt is highly fluid overloaded and possibly hemolyzing Status post cryoprecipitate, platelets and 3 units PRBC Hematology on board: Appreciate recommendations Hold aspirin Continue allopurinol Restart anagrelide #Acute on chronic diastolic valvular CHF with right-sided failure Cardiology on board: Appreciate recommendations decrease lasix to 40IV daily. Decrease to oral over the weekend #Contraction alkalosis 2/2 lasix use -titrate down lasix #Leukamoid rxn -heme on board: appreciate recs -no fever, sign of infection at this time. In setting of MDS and agressive diuresis -if fever or continued increase may need to reimage RLE #concern for hemolysis: Sybil test negative -low haptoglobin and high LDH. 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 fib Continue sotalol Holding aspirin secondary to bleed
[2020-05-15] MEDS ORDERED: CALCIUM GLUCONATE 10% - 1,000 MG/10 ML VIAL IVPUSH ONE (14:42)
--- NOTE | 2020-05-15 14:49 | PN ---
Teaching Attending Note Name of Resident: Varsha Smyth ATTENDING PHYSICIAN STATEMENT I saw and evaluated the patient. I reviewed the resident's note and discussed the case with the resident. I agree with the resident's findings and plan as documented. 74M with MDS/MPN transfusion dependent came in for scheduled PRBC transfusion, c/b acute CHF and right thigh/gluteal hematoma. Hematoma/tightness in thigh improving. Patient is still on IV Lasix (once daily now) and team is optimizing his volume status. His Hb has been stable in the high 6 range without symptoms. Will plan to give one unit PRBC with extra Lasix when ready for d/c; patient then can f/u with Dr Yashira henry.
--- NOTE | 2020-05-15 18:31 | PN ---
Physical Exam: SUBJECTIVE: Patient seen and examined at bedside this AM. OBJECTIVE: Vital Signs Period Temp Pulse Resp BP Sys/Paredes Pulse Ox Last 24 Hr 97.9 F-98.8 F 68-79 18-20 114-139/50-65 93-99 GENERAL: No acute distress HEAD: Normal with no signs of trauma. EYES: EOMI Sclera Clear. LUNGS: Clear to auscultation bilaterally HEART: +CHANEL with radiation to carotids. ABDOMEN: Soft, NDNT EXTREMITIES: . RLE still 1+ edema NEUROLOGICAL: Cranial nerves II through XII grossly intact. PSYCH: Normal mood, normal affect. Laboratory Results - last 24 hr 05/14/20 05/14/20 05/15/20 19:45 20:00 07:10 WBC 28.4 H RBC 2.52 L Hgb 6.6 L* Hct 21.4 L MCV 84.8 MCH 26.1 MCHC 30.8 L RDW 25.2 H Plt Count 667 H D MPV 10.0 Sodium Potassium Cancelled 5.2 H Chloride Carbon Dioxide Anion Gap BUN Creatinine Est GFR (CKD-EPI)AfAm Est GFR (CKD-EPI)NonAf Random Glucose Calcium Phosphorus Magnesium 05/15/20 07:10 WBC RBC Hgb Hct MCV MCH MCHC RDW Plt Count MPV Sodium 138 Potassium 5.4 H Chloride 101 Carbon Dioxide 35 H Anion Gap 3 L BUN 23.3 H Creatinine 0.6 Est GFR (CKD-EPI)AfAm 113.99 Est GFR (CKD-EPI)NonAf 98.35 Random Glucose 84 Calcium 8.3 L Phosphorus 3.8 Magnesium 2.4 Active Medications Generic Name Dose Route Start Last Admin Trade Name Freq PRN Reason Stop Dose Admin Acetaminophen 650 mg 05/07/20 23:36 05/09/20 10:00 Tylenol - PO 650 mg Q6H PRN Administration PAIN LEVEL 1-3 Allopurinol 300 mg 05/08/20 15:00 05/15/20 10:01 Zyloprim - PO 300 mg DAILY ABBY Administration Anagrelide HCl 1 mg 05/14/20 22:00 05/15/20 10:01 Agrylin PO 1 mg BID ABBY Administration Furosemide 40 mg 05/16/20 10:00 Lasix Injection - IVPUSH DAILY ABBY Sotalol HCl 80 mg 05/08/20 10:00 10/09/20 10:01 Betapace - PO 80 mg BID ABBY Administration Tamsulosin HCl 0.4 mg 05/15/20 08:39 Flomax - PO DAILY@0830 [facility] ASSESSMENT/PLAN: 74-year-old male history of transfusion dependent MDS, A. fib, pulmonary hypertension presented for PRBC transfusion and was found to have severe anemia due to right lower extremity hematoma #transfusion dependent anemia with MDS/MPN - patient has received multiple transfusions without much hgb response - Status post cryoprecipitate, platelets and 3 units PRBC - patient with a large gluteal hematoma - followed by Heme ONC- Anagrelide resumed - Case discussed with Dr Ac. Factor 8 level needed at this time to assess for bleeding risk for possible bone marrow intervention. - if patient becomes SOB with any transfusion, can give extra dose of lasix. Lasix 40 Daily - continue allopurinol - Conrad test negative # right lower extremity hematoma - CT shows extensive infiltration into muscle and fascia - Subsiding. Continue to monitor daily #paroxysmal afib - continue Sotalol #acute on chronic CHF - echo: EF: 55-60%, RV borderline dilated - lasix 40 Daily now. Will attempt to switch back to PO over weekend #carotid stenosis - on ASA but will hold Dispo: continue to monitor on tele Visit type - Emergency Visit Emergency Visit: Yes ED Registration Date: 05/07/20 Care time: The patient presented to the Emergency Department on the above date and was hospitalized for further evaluation of their emergent condition. - New Patient This patient is new to me today: No - Critical Care Critical Care patient: No - Discharge Referral Referred to [facility] Med P.C.: No - Medication Review Med list reviewed for High Risk Meds patients 65 and older: Yes ATTENDING PHYSICIAN STATEMENT I saw and evaluated the patient. I reviewed the resident's note and discussed the case with the resident. I agree with the resident's findings and plan as documented. SUBJECTIVE: OBJECTIVE: ASSESSMENT AND PLAN:
[2020-05-16 06:45] LABS: HEMATOCRIT 21.7 % (35.4-49); MCH 25.7 pg (25.7-33.7); MCHC 30.1 g/dl (32.0-35.9); MEAN CELL VOLUME 85.4 fl (80-96); MEAN PLT VOLUME 9.7 fl (7.5-11.1); PLATELET COUNT 696 K/MM3 (134-434); RBC 2.54 M/mm3 (4.00-5.60); RDW 25.8 % (11.9-15.9); WHITE BLOOD COUNT 26.6 K/mm3 (4.0-10.0)
[2020-05-16 07:06] LABS: HEMOGLOBIN 6.5 GM/dL (11.7-16.9)
[2020-05-16 07:07] LABS: BLOOD UREA NITROGEN 27.1 mg/dL (7-18); CALCIUM 8.3 mg/dL (8.5-10.1); CREATININE 0.6 mg/dL (0.55-1.3); MAGNESIUM 2.2 mg/dL (1.8-2.4); PHOSPHOROUS 3.9 mg/dL (2.5-4.9); POTASSIUM 5.4 mmol/L (3.5-5.1)
[2020-05-16] MEDS: TAMSULOSIN HCL 0.4 MG CAP PO SCH (08:30)
[2020-05-16] MEDS: ANAGRELIDE HCL 1 MG PO SCH ×2 (09:07→21:08)
[2020-05-16] MEDS: ALLOPURINOL 300 MG TABLET (FP) PO SCH (09:07)
[2020-05-16] MEDS: SOTALOL HCL 80 MG TABLET (FP) PO SCH ×2 (09:08→21:08)
[2020-05-16] MEDS ORDERED: FUROSEMIDE 40 MG/4 ML INJECTABLE VIAL IVPUSH SCH (10:00)
--- NOTE | 2020-05-16 12:31 | PN ---
Progress Note (short form) - Note Progress Note: cc: edema s: edema near baseline, no chest pain, palps, dizziness, dyspnea Current Medications Generic Name Dose Route Start Last Admin Trade Name Sheila PRN Reason Stop Dose Admin Acetaminophen 650 mg 05/07/20 23:36 05/09/20 10:00 Tylenol - PO 650 mg Q6H PRN Administration PAIN LEVEL 1-3 Allopurinol 300 mg 05/08/20 15:00 05/16/20 09:07 Zyloprim - PO 300 mg DAILY ABBY Administration Anagrelide HCl 1 mg 05/14/20 22:00 05/16/20 09:07 Agrylin PO 1 mg BID ABBY Administration Furosemide 40 mg 05/16/20 10:00 05/16/20 09:08 Lasix Injection - IVPUSH 40 mg DAILY ABBY Administration Sotalol HCl 80 mg 05/08/20 10:00 05/16/20 09:08 Betapace - PO 80 mg BID ABBY Administration Tamsulosin HCl 0.4 mg 05/15/20 08:39 05/16/20 08:30 Flomax - PO 0.4 mg DAILY@0830 ABBY Administration Vital Signs Period Temp Pulse Resp BP Sys/Paredes Pulse Ox Last 24 Hr 97.9 F-98.5 F 69-78 17-20 114-138/50-59 93-95 Constitutional: Yes: No Distress, Calm Eyes: Yes: Conjunctiva Clear, EOM Intact HENT: Yes: Atraumatic Neck: Yes: Supple Cardiovascular: Yes: Regular Rate and Rhythm Respiratory: Yes: CTA Bilaterally Gastrointestinal: Yes: Soft (nt, less distended) Edema: No Peripheral Pulses WNL: Yes Neurological: Yes: Alert, Oriented no jaundice, diaphoresis not agitated Laboratory Last Values WBC 26.6 K/mm3 (4.0-10.0) H 05/16/20 05:55 RBC 2.54 M/mm3 (4.00-5.60) L 05/16/20 05:55 Hgb 6.5 GM/dL (11.7-16.9) L* 05/16/20 05:55 Hct 21.7 % (35.4-49) L 05/16/20 05:55 MCV 85.4 fl (80-96) 05/16/20 05:55 MCH 25.7 pg (25.7-33.7) 05/16/20 05:55 MCHC 30.1 g/dl (32.0-35.9) L 05/16/20 05:55 RDW 25.8 % (11.9-15.9) H 05/16/20 05:55 Plt Count 696 K/MM3 (134-434) H 05/16/20 05:55 MPV 9.7 fl (7.5-11.1) 05/16/20 05:55 Absolute Neuts (auto) 22.3 K/mm3 (1.5-8.0) H 05/11/20 10:55 Neutrophils % 86.2 % (42.8-82.8) H 05/11/20 10:55 Neutrophils % (Manual) 78.0 % (42.8-82.8) 05/11/20 10:55 Band Neutrophils % 11.0 % 05/11/20 10:55 Lymphocytes % 4.8 % (8-40) L D 05/11/20 10:55 Lymphocytes % (Manual) 6.0 % (8-40) L 05/11/20 10:55 Monocytes % 1.4 % (3.8-10.2) L 05/11/20 10:55 Monocytes % (Manual) 0 % (3.8-10.2) L 05/11/20 10:55 Eosinophils % 2.2 % (0-4.5) 05/11/20 10:55 Eosinophils % (Manual) 1.0 % (0-4.5) 05/11/20 10:55 Basophils % 5.4 % (0-2.0) H* 05/11/20 10:55 Basophils % (Manual) 1.0 % (0-2.0) D 05/11/20 10:55 Myelocytes % (Man) 0 % (0-2) 05/11/20 10:55 Promyelocytes % (Man) 0 % (0-2) 05/11/20 10:55 Blast Cells % (Manual) 0 % (0-0) 05/11/20 10:55 Nucleated RBC % 1 % (0-0) H 05/11/20 10:55 Metamyelocytes 3 % (0-2) H D 05/11/20 10:55 Hypochromia 0 05/11/20 10:55 Toxic Granulation 2+ 05/11/20 10:55 Platelet Estimate Decreased 05/11/20 10:55 Platelet Comment Present 05/11/20 10:55 Polychromasia 1+ 05/11/20 10:55 Poikilocytosis 1+ 05/11/20 10:55 Basophilic Stippling 1+ 05/07/20 10:00 Anisocytosis 1+ 05/11/20 10:55 Microcytosis 1+ 05/11/20 10:55 Macrocytosis 0 05/11/20 10:55 Spherocytes 1+ 05/11/20 10:55 Target Cells 1+ 05/11/20 10:55 Tear Drop Cells 1+ 05/11/20 10:55 Ovalocytes 1+ 05/11/20 10:55 Stomatocytes 1+ 05/07/20 10:00 Acanthocytes (Spur) 1+ 05/11/20 10:55 Haptoglobin < 10 mg/dL (34-355) L 05/08/20 10:29 PT with INR 15.80 SEC (9.7-13.0) H 05/09/20 10:20 INR 1.34 (0.83-1.09) H 05/09/20 10:20 PTT (Actin FS) 34.0 SECONDS (25.2-36.5) 05/09/20 10:20 Fibrinogen 249.0 mg/dL (238-498) 05/09/20 10:20 von Willebrand Activity 97 % (50-200) 05/08/20 15:25 von Willebrand Antigen 142 % (50-200) 05/08/20 15:25 Sodium 138 mmol/L (136-145) 05/16/20 05:55 Potassium 5.4 mmol/L (3.5-5.1) H 05/16/20 05:55 Chloride 101 mmol/L (98-107) 05/16/20 05:55 Carbon Dioxide 33 mmol/L (21-32) H 05/16/20 05:55 Anion Gap 4 MMOL/L (8-16) L 05/16/20 05:55 BUN 27.1 mg/dL (7-18) H 05/16/20 05:55 Creatinine 0.6 mg/dL (0.55-1.3) 05/16/20 05:55 Est GFR (CKD-EPI)AfAm 113.99 05/16/20 05:55 Est GFR (CKD-EPI)NonAf 98.35 05/16/20 05:55 Random Glucose 65 mg/dL (74-106) L 05/16/20 05:55 Uric Acid 11.1 mg/dL (2.6-7.2) H 05/08/20 06:30 Calcium 8.3 mg/dL (8.5-10.1) L 05/16/20 05:55 Phosphorus 3.9 mg/dL (2.5-4.9) 05/16/20 05:55 Magnesium 2.2 mg/dL (1.8-2.4) 05/16/20 05:55 Total Bilirubin 1.4 mg/dL (0.2-1) H 05/12/20 07:00 AST 22 U/L (15-37) 05/12/20 07:00 ALT 12 U/L (13-61) L 05/12/20 07:00 Alkaline Phosphatase 80 U/L (45-117) 05/12/20 07:00 LD Total 612 U/L (87-246) H 05/08/20 06:30 Total Protein 5.2 g/dl (6.4-8.2) L 05/12/20 07:00 Albumin 3.1 g/dl (3.4-5.0) L 05/12/20 07:00 Stool Occult Blood Negative (NEGATIVE) 05/09/20 04:00 SARS-CoV-2 (PCR) Negative (Negative) 05/08/20 11:00 Blood Type B POSITIVE 05/07/20 10:00 Antibody Screen Negative 05/07/20 10:00 Direct Antiglob Test Negative (NEGATIVE) 05/11/20 12:05 Crossmatch See Detail 05/07/20 10:00 Assessment/Plan 74yr old man with a hx of HTN, MDS, hx of paroxysmal Afib, hemachromatosis, left ventricular diastolic dysfunction, recurring anemia, thrombocytopenia and critical carotid artery stenosis s/p CEA here for elective PRBC transfusion found to have worsened b/LE edema and R hip pain. 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 with component of cor pulmonale/right sided failure: -echo here with nl lvef, mod phtn -improved with IV lasix, edema near baseline - transition to PO lasix in AM - 40 mg daily for now (was on 20 mg three times a week at home) -daily BMP and weights to monitor renal fx/lytes carotid stenosis s/p cea: -ASA 81mg daily when hematoma, anemia resolves htn: -stable mds: - manage per heme onc spontaneous thigh hematoma: -resolving -vascular consulted anemia: - heme following - concern for hemolysis, less likely transfusion reaction, also with hematoma - monitoring H/H, avoiding transfusions for now
--- NOTE | 2020-05-16 17:16 | PN ---
Progress Note (short form) - Note Progress Note: S: Patient without complaints or acute events. Patient H/H stabilized around 6.5. Patient has no dizziness/lightheadedness, SOB, CP, palpiations, abdominal pain. Vital Signs Temperature 97.9 F 05/16/20 15:00 Pulse Rate 74 05/16/20 15:00 Respiratory Rate 18 05/16/20 15:00 Blood Pressure 113/56 L 05/16/20 15:00 O2 Sat by Pulse Oximetry (%) 95 05/16/20 09:43 PE: Gen: NAd, awake, alert, oriented x3 HEENT: Nc/At, [place], sclera anicteric, MMM Neck: No JVD LUNG: CTA b/l without wheezes or rales CARD: RRR no murmurs appreciated ABD: Soft, NT/ND, + BS EXT: Trace edema R>L lower extremity to the ankle CBC, BMP 05/16/20 05:55 05/16/20 05:55 Hepatic Panel Total Bilirubin 1.4 mg/dL (0.2-1) H 05/12/20 07:00 AST 22 U/L (15-37) 05/12/20 07:00 ALT 12 U/L (13-61) L 05/12/20 07:00 Alkaline Phosphatase 80 U/L (45-117) 05/12/20 07:00 Albumin 3.1 g/dl (3.4-5.0) L 05/12/20 07:00 Active Medications Acetaminophen (Tylenol -) 650 mg PO Q6H PRN PRN Reason: PAIN LEVEL 1-3 Last Admin: 05/09/20 10:00 Dose: 650 mg Documented by: Allopurinol (Zyloprim -) 300 mg PO DAILY [facility] Last Admin: 05/16/20 09:07 Dose: 300 mg Documented by: Anagrelide HCl (Agrylin) 1 mg PO BID [facility] Last Admin: 05/16/20 09:07 Dose: 1 mg Documented by: Furosemide (Lasix -) 40 mg PO DAILY [facility] Sotalol HCl (Betapace -) 80 mg PO BID [facility] Last Admin: 05/16/20 09:08 Dose: 80 mg Documented by: Tamsulosin HCl (Flomax -) 0.4 mg PO DAILY@0830 [facility] Last Admin: 05/16/20 08:30 Dose: 0.4 mg Documented by: Assessment and Plans: Acute blood loss anemia 2/2 R thigh hematoma (resolved) Transfusion-dependent MDS/MPN Hyperkalemia Acute on chronic mixed HF Leukamoid Reacton related to above Paroxysmal Atrial Fibrillation History of BPH --Patient approaching euvolemia --Discussed with cardiology and transition to PO Lasix 40mg qdaily for tomorrow --Continue Sotalol home dose --s/p 3U PRBC, 1 platelet, 1 cryoprecipitate --Patient currently asymptomatic with Hgb 6.5. Will discuss with hem/onc if another transfusion is necessary in setting of difficult to control volume status and asymptomatic anemia in MDS --Holding ASA for now --Continue Allopruinol and Anagrelide --Continue Flomax for now --Given lasix IV dose today will monitor hyperkalemia (no ECG changes) and can repeat level tomorrow Dispo: Discuss with hem/onc; anticipating D/c home soon DO Bambi Manley
[2020-05-16] MEDS ORDERED: PT OWN MED DRAWER 7, Y5N ONE (20:52)
[2020-05-17 06:15] LABS: HEMATOCRIT 21.8 % (35.4-49); MCH 26.5 pg (25.7-33.7); MCHC 31.2 g/dl (32.0-35.9); MEAN CELL VOLUME 84.7 fl (80-96); MEAN PLT VOLUME 8.9 fl (7.5-11.1); PLATELET COUNT 708 K/MM3 (134-434); RBC 2.57 M/mm3 (4.00-5.60); RDW 25.2 % (11.9-15.9); WHITE BLOOD COUNT 24.6 K/mm3 (4.0-10.0)
[2020-05-17 06:30] LABS: HEMOGLOBIN 6.8 GM/dL (11.7-16.9)
[2020-05-17 06:44] LABS: BLOOD UREA NITROGEN 27.1 mg/dL (7-18); CALCIUM 8.4 mg/dL (8.5-10.1); CREATININE 0.6 mg/dL (0.55-1.3); POTASSIUM 4.9 mmol/L (3.5-5.1)
[2020-05-17] MEDS: TAMSULOSIN HCL 0.4 MG CAP PO SCH (08:15)
[2020-05-17] MEDS ORDERED: PT OWN MED DRAWER 7, Y5N ONE ×2 (09:38→20:53)
[2020-05-17] MEDS: SOTALOL HCL 80 MG TABLET (FP) PO SCH ×2 (09:40→21:21)
[2020-05-17] MEDS: ALLOPURINOL 300 MG TABLET (FP) PO SCH (09:40)
[2020-05-17] MEDS: ANAGRELIDE HCL 1 MG PO SCH ×2 (09:40→21:21)
[2020-05-17] MEDS: FUROSEMIDE 40 MG TABLET (FP) PO SCH (09:40)
--- NOTE | 2020-05-17 12:11 | PN ---
Progress Note (short form) - Note Progress Note: cc: edema s: no chest pain, palps, dizziness, dyspnea. edema improved Current Medications Generic Name Dose Route Start Last Admin Trade Name Sheila PRN Reason Stop Dose Admin Acetaminophen 650 mg 05/07/20 23:36 05/09/20 10:00 Tylenol - PO 650 mg Q6H PRN Administration PAIN LEVEL 1-3 Allopurinol 300 mg 05/08/20 15:00 05/17/20 09:40 Zyloprim - PO 300 mg DAILY ABBY Administration Anagrelide HCl 1 mg 05/14/20 22:00 05/17/20 09:40 Agrylin PO 1 mg BID ABBY Administration Furosemide 40 mg 05/17/20 10:00 05/17/20 09:40 Lasix - PO 40 mg DAILY ABBY Administration Sotalol HCl 80 mg 05/08/20 10:00 05/17/20 09:40 Betapace - PO 80 mg BID ABBY Administration Tamsulosin HCl 0.4 mg 05/15/20 08:39 05/17/20 08:15 Flomax - PO 0.4 mg DAILY@0830 ABBY Administration Vital Signs Period Temp Pulse Resp BP Sys/Paredes Pulse Ox Last 24 Hr 97.8 F-98.5 F 68-76 18-20 113-156/52-64 94-96 Constitutional: Yes: No Distress, Calm Eyes: Yes: Conjunctiva Clear, EOM Intact HENT: Yes: Atraumatic Neck: Yes: Supple Cardiovascular: Yes: Regular Rate and Rhythm Respiratory: Yes: CTA Bilaterally Gastrointestinal: Yes: Soft (nt, less distended) Edema: No Peripheral Pulses WNL: Yes Neurological: Yes: Alert, Oriented no jaundice, diaphoresis not agitated Laboratory Last Values WBC 24.6 K/mm3 (4.0-10.0) H 05/17/20 06:05 RBC 2.57 M/mm3 (4.00-5.60) L 05/17/20 06:05 Hgb 6.8 GM/dL (11.7-16.9) L* 05/17/20 06:05 Hct 21.8 % (35.4-49) L 05/17/20 06:05 MCV 84.7 fl (80-96) 05/17/20 06:05 MCH 26.5 pg (25.7-33.7) 05/17/20 06:05 MCHC 31.2 g/dl (32.0-35.9) L 05/17/20 06:05 RDW 25.2 % (11.9-15.9) H 05/17/20 06:05 Plt Count 708 K/MM3 (134-434) H 05/17/20 06:05 MPV 8.9 fl (7.5-11.1) 05/17/20 06:05 Absolute Neuts (auto) 22.3 K/mm3 (1.5-8.0) H 05/11/20 10:55 Neutrophils % 86.2 % (42.8-82.8) H 05/11/20 10:55 Neutrophils % (Manual) 78.0 % (42.8-82.8) 05/11/20 10:55 Band Neutrophils % 11.0 % 05/11/20 10:55 Lymphocytes % 4.8 % (8-40) L D 05/11/20 10:55 Lymphocytes % (Manual) 6.0 % (8-40) L 05/11/20 10:55 Monocytes % 1.4 % (3.8-10.2) L 05/11/20 10:55 Monocytes % (Manual) 0 % (3.8-10.2) L 05/11/20 10:55 Eosinophils % 2.2 % (0-4.5) 05/11/20 10:55 Eosinophils % (Manual) 1.0 % (0-4.5) 05/11/20 10:55 Basophils % 5.4 % (0-2.0) H* 05/11/20 10:55 Basophils % (Manual) 1.0 % (0-2.0) D 05/11/20 10:55 Myelocytes % (Man) 0 % (0-2) 05/11/20 10:55 Promyelocytes % (Man) 0 % (0-2) 05/11/20 10:55 Blast Cells % (Manual) 0 % (0-0) 05/11/20 10:55 Nucleated RBC % 1 % (0-0) H 05/11/20 10:55 Metamyelocytes 3 % (0-2) H D 05/11/20 10:55 Hypochromia 0 05/11/20 10:55 Toxic Granulation 2+ 05/11/20 10:55 Platelet Estimate Decreased 05/11/20 10:55 Platelet Comment Present 05/11/20 10:55 Polychromasia 1+ 05/11/20 10:55 Poikilocytosis 1+ 05/11/20 10:55 Basophilic Stippling 1+ 05/07/20 10:00 Anisocytosis 1+ 05/11/20 10:55 Microcytosis 1+ 05/11/20 10:55 Macrocytosis 0 05/11/20 10:55 Spherocytes 1+ 05/11/20 10:55 Target Cells 1+ 05/11/20 10:55 Tear Drop Cells 1+ 05/11/20 10:55 Ovalocytes 1+ 05/11/20 10:55 Stomatocytes 1+ 05/07/20 10:00 Acanthocytes (Spur) 1+ 05/11/20 10:55 Haptoglobin < 10 mg/dL (34-355) L 05/08/20 10:29 PT with INR 15.80 SEC (9.7-13.0) H 05/09/20 10:20 INR 1.34 (0.83-1.09) H 05/09/20 10:20 PTT (Actin FS) 34.0 SECONDS (25.2-36.5) 05/09/20 10:20 Fibrinogen 249.0 mg/dL (238-498) 05/09/20 10:20 von Willebrand Activity 97 % (50-200) 05/08/20 15:25 von Willebrand Antigen 142 % (50-200) 05/08/20 15:25 Sodium 138 mmol/L (136-145) 05/17/20 06:05 Potassium 4.9 mmol/L (3.5-5.1) 05/17/20 06:05 Chloride 101 mmol/L (98-107) 05/17/20 06:05 Carbon Dioxide 33 mmol/L (21-32) H 05/17/20 06:05 Anion Gap 4 MMOL/L (8-16) L 05/17/20 06:05 BUN 27.1 mg/dL (7-18) H 05/17/20 06:05 Creatinine 0.6 mg/dL (0.55-1.3) 05/17/20 06:05 Est GFR (CKD-EPI)AfAm 113.99 05/17/20 06:05 Est GFR (CKD-EPI)NonAf 98.35 05/17/20 06:05 Random Glucose 80 mg/dL (74-106) 05/17/20 06:05 Uric Acid 11.1 mg/dL (2.6-7.2) H 05/08/20 06:30 Calcium 8.4 mg/dL (8.5-10.1) L 05/17/20 06:05 Phosphorus 3.9 mg/dL (2.5-4.9) 05/16/20 05:55 Magnesium 2.2 mg/dL (1.8-2.4) 05/16/20 05:55 Total Bilirubin 1.4 mg/dL (0.2-1) H 05/12/20 07:00 AST 22 U/L (15-37) 05/12/20 07:00 ALT 12 U/L (13-61) L 05/12/20 07:00 Alkaline Phosphatase 80 U/L (45-117) 05/12/20 07:00 LD Total 612 U/L (87-246) H 05/08/20 06:30 Total Protein 5.2 g/dl (6.4-8.2) L 05/12/20 07:00 Albumin 3.1 g/dl (3.4-5.0) L 05/12/20 07:00 Stool Occult Blood Negative (NEGATIVE) 05/09/20 04:00 SARS-CoV-2 (PCR) Negative (Negative) 05/08/20 11:00 Blood Type B POSITIVE 05/07/20 10:00 Antibody Screen Negative 05/07/20 10:00 Direct Antiglob Test Negative (NEGATIVE) 05/11/20 12:05 Crossmatch See Detail 05/07/20 10:00 Assessment/Plan 74yr old man with a hx of HTN, MDS, hx of paroxysmal Afib, hemachromatosis, left ventricular diastolic dysfunction, recurring anemia, thrombocytopenia and critical carotid artery stenosis s/p CEA here for elective PRBC transfusion found to have worsened b/LE edema and R hip pain. 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 with component of cor pulmonale/right sided failure: -echo here with nl lvef, mod phtn -improved with IV lasix, lost 10 lbs during admission -cont lasix PO 40 mg daily (was on 20 mg three times a week at home) -daily BMP and weights to monitor renal fx/lytes carotid stenosis s/p cea: -ASA 81mg daily when hematoma, anemia resolves htn: -stable mds: - manage per heme onc spontaneous thigh hematoma: -resolving -vascular consulted anemia: - heme following - concern for hemolysis, less likely transfusion reaction, also with hematoma - monitoring H/H, avoiding transfusions for now
--- NOTE | 2020-05-17 17:09 | PN ---
Progress Note (short form) - Note Progress Note: S: Patient without complaints or acute events. Patient has no dizzines s/lightheadedness, SOB, CP, palpiations, abdominal pain. Vital Signs Temperature 97.9 F 05/16/20 15:00 Pulse Rate 74 05/16/20 15:00 Respiratory Rate 18 05/16/20 15:00 Blood Pressure 113/56 L 05/16/20 15:00 O2 Sat by Pulse Oximetry (%) 95 05/16/20 09:43 PE: Gen: NAd, awake, alert, oriented x3 HEENT: Nc/At, [place], sclera anicteric, MMM Neck: No JVD LUNG: CTA b/l without wheezes or rales CARD: RRR no murmurs appreciated ABD: Soft, NT/ND, + BS EXT: Trace edema R>L lower extremity to the ankle, hematoma R thigh stable in size and leg compartments soft CBC, BMP 05/17/20 06:05 05/17/20 06:05 Hepatic Panel Total Bilirubin 1.4 mg/dL (0.2-1) H 05/12/20 07:00 AST 22 U/L (15-37) 05/12/20 07:00 ALT 12 U/L (13-61) L 05/12/20 07:00 Alkaline Phosphatase 80 U/L (45-117) 05/12/20 07:00 Albumin 3.1 g/dl (3.4-5.0) L 05/12/20 07:00 Active Medications Acetaminophen (Tylenol -) 650 mg PO Q6H PRN PRN Reason: PAIN LEVEL 1-3 Last Admin: 05/09/20 10:00 Dose: 650 mg Documented by: Allopurinol (Zyloprim -) 300 mg PO DAILY [facility] Last Admin: 05/16/20 09:07 Dose: 300 mg Documented by: Anagrelide HCl (Agrylin) 1 mg PO BID [facility] Last Admin: 05/16/20 09:07 Dose: 1 mg Documented by: Furosemide (Lasix -) 40 mg PO DAILY [facility] Sotalol HCl (Betapace -) 80 mg PO BID [facility] Last Admin: 05/16/20 09:08 Dose: 80 mg Documented by: Tamsulosin HCl (Flomax -) 0.4 mg PO DAILY@0830 [facility] Last Admin: 05/16/20 08:30 Dose: 0.4 mg Documented by: Assessment and Plans: Acute blood loss anemia 2/2 R thigh hematoma (resolved) Transfusion-dependent MDS/MPN Hyperkalemia Acute on chronic mixed HF Leukamoid Reacton related to above Paroxysmal Atrial Fibrillation History of BPH --s/p 3U PRBC, 1 platelet, 1 cryoprecipitate --Patient currently asymptomatic with Hgb 6.8. --Discussed with hematology/oncology and will avoid transfusion for now due to high risk of overload --CBC tomorrow and expect continued increase; anticipate can go home with close followup tomorrow --Holding ASA for now --Continue Allopruinol and Anagrelide --Patient approaching euvolemia --Continue Lasix 40mg qdaily PO --Continue Sotalol home dose --Continue Flomax for now Dispo: anticipating D/c home tomorrow is patient's H/h remains stable Dov Thomas DO - IM
[2020-05-18] MEDS: TAMSULOSIN HCL 0.4 MG CAP PO SCH (08:10)
[2020-05-18] MEDS ORDERED: PT OWN MED DRAWER 7, Y5N ONE ×2 (09:56→21:49)
[2020-05-18] MEDS: FUROSEMIDE 40 MG TABLET (FP) PO SCH (09:58)
[2020-05-18] MEDS: ALLOPURINOL 300 MG TABLET (FP) PO SCH (09:58)
[2020-05-18] MEDS: ANAGRELIDE HCL 1 MG PO SCH ×2 (09:58→21:51)
[2020-05-18] MEDS: SOTALOL HCL 80 MG TABLET (FP) PO SCH ×2 (09:58→21:51)
[2020-05-18 11:38] LABS: HEMATOCRIT 22.8 % (35.4-49); HEMOGLOBIN 7.1 GM/dL (11.7-16.9); MCH 27.1 pg (25.7-33.7); MCHC 31.3 g/dl (32.0-35.9); MEAN CELL VOLUME 86.5 fl (80-96); MEAN PLT VOLUME 8.7 fl (7.5-11.1); PLATELET COUNT 601 K/MM3 (134-434); RBC 2.64 M/mm3 (4.00-5.60); RDW 25.4 % (11.9-15.9); WHITE BLOOD COUNT 26.1 K/mm3 (4.0-10.0)
--- NOTE | 2020-05-18 11:52 | PN ---
Progress Note (short form) - Note Progress Note: Consult Specialty:: Cardiology for - History of Present Illness Chief Complaint: Bilateral LE edema History of Present Illness: 74 M MDS, AF, Moderate MR/TR/PHTN admitted for PRBCS found to have pedal edema. Right LE markedly more swollen than left, with ecchymosis over right hip and some pain- a CT was ordered by Onc. LE venous duplex also pending. His weight has been increasing, even prior to this admission. Denies SOB/CP/palps. Takes Lasix 20mg TIW at home. Also on Amlodipine which may contribute to edema. s: no cp palps dizzy; sob and le edema resolved Current Medications Generic Name Dose Route Start Last Admin Trade Name Freq PRN Reason Stop Dose Admin Acetaminophen 650 mg 05/07/20 23:36 05/09/20 10:00 Tylenol - PO 650 mg Q6H PRN Administration PAIN LEVEL 1-3 Allopurinol 300 mg 05/08/20 15:00 05/18/20 09:58 Zyloprim - PO 300 mg DAILY ABBY Administration Anagrelide HCl 1 mg 05/14/20 22:00 05/18/20 09:58 Agrylin PO 1 mg BID ABBY Administration Furosemide 40 mg 05/17/20 10:00 05/18/20 09:58 Lasix - PO 40 mg DAILY ABBY Administration Sotalol HCl 80 mg 05/08/20 10:00 05/18/20 09:58 Betapace - PO 80 mg BID ABBY Administration Tamsulosin HCl 0.4 mg 05/15/20 08:39 05/18/20 08:10 Flomax - PO 0.4 mg DAILY@0830 ABBY Administration Vital Signs Period Temp Pulse Resp BP Sys/Paredes Pulse Ox Last 24 Hr 97.1 F-98.4 F 63-75 18-20 124-147/52-68 94-98 Constitutional: Yes: No Distress, Calm Eyes: Yes: Conjunctiva Clear HENT: Yes: Atraumatic Neck: Yes: Trachea Midline Respiratory: Yes: CTA Bilaterally (no wheezing or rales) Gastrointestinal: Yes: Soft (mildly distended) Cardiovascular: Yes: Pulse Irregular JVD: Yes PMI: Non-Displaced Heart Sounds: Yes: S1, S2 (irreg) Edema: no Peripheral Pulses WNL: Yes Neurological: Yes: Alert, Oriented CBC, BMP 10/12/20 11:10 tele: sr Assessment/Plan 74yr old man with a hx of HTN, MDS, hx of paroxysmal Afib, hemachromatosis, left ventricular diastolic dysfunction, recurring anemia, thrombocytopenia and critical carotid artery stenosis s/p CEA here for elective PRBC transfusion fou nd to have worsened b/LE edema and R hip pain. 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 with component of cor pulmonale/right sided failure: -echo here with nl lvef, mod phtn -improved with IV lasix, lost 10 lbs during admission -cont lasix PO 40 mg daily (was on 20 mg three times a week at home) -daily BMP and weights to monitor renal fx/lytes carotid stenosis s/p cea: -ASA 81mg daily when hematoma, anemia resolves htn: -stable mds: - manage per heme onc spontaneous thigh hematoma: -resolving -vascular consulted anemia: - heme following - concern for hemolysis, less likely transfusion reaction, also with hematoma - monitoring H/H, avoiding transfusions for now cardiac cuellar stable
[2020-05-18 12:02] LABS: BLOOD UREA NITROGEN 26.7 mg/dL (7-18); CALCIUM 8.3 mg/dL (8.5-10.1); CREATININE 0.5 mg/dL (0.55-1.3); MAGNESIUM 2.3 mg/dL (1.8-2.4); PHOSPHOROUS 4.4 mg/dL (2.5-4.9); POTASSIUM 5.1 mmol/L (3.5-5.1)
--- NOTE | 2020-05-18 12:44 | PN ---
Teaching Attending Note Name of Resident: Rosalio Mott ATTENDING PHYSICIAN STATEMENT I saw and evaluated the patient. I reviewed the resident's note and discussed the case with the resident. I agree with the resident's findings and plan as documented. SUBJECTIVE: Seen and examined at bedside. Denies shortness of breath, chest pain, dizzines s. Hemoglobin 7.1 today. Edema nearly completely resolved. Hematology has asked that 1 additional unit of PRBCs to be transfused prior to discharge. Patient will get 1 unit PRBC followed by 40 mg IV Lasix OBJECTIVE Last Vital Signs Temp Pulse Resp BP Pulse Ox 98.4 F 63 18 132/68 98 05/18/20 09:57 05/18/20 09:57 05/18/20 09:57 05/18/20 09:57 05/18/20 09:57 PE:Per resident note Labs/Imaging: reviewed ASSESSMENT/PLAN 74-year-old male history of transfusion dependent MDS, A. fib, pulmonary hypertension presented for PRBC transfusion and was found to have severe anemia due to right lower extremity hematoma #Symptomatic acute blood loss anemia secondary to hematoma with underlying transfusion dependent MDS -transfuse 1 unit prior to dc Status post cryoprecipitate, platelets and 3 units PRBC Hematology on board: Appreciate recommendations Hold aspirin Continue allopurinol increase anagrelide to 1.5mg in am and 1mg in PM per heme #Leukamoid rxn -heme on board: appreciate recs -no fever, sign of infection at this time. In setting of MDS and agressive diuresis -if fever or continued increase may need to reimage RLE #concern for hemolysis: Sybil test negative -low haptoglobin and high LDH. 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 fib Continue sotalol Holding aspirin secondary to bleed Dispo: medically cleared for discharge tonight following transfusion of 1U PRBC
[2020-05-18] MEDS ORDERED: FUROSEMIDE 40 MG/4 ML INJECTABLE VIAL IVPUSH ONE (14:00)
[2020-05-18] MEDS ORDERED: PCA PUMP NR ONE (16:47)
--- NOTE | 2020-05-18 17:27 | PN ---
Physical Exam: SUBJECTIVE: Patient seen and examined at bedside. No acute events. 1 U PRBC today followed by Ophelia. OBJECTIVE: Vital Signs Period Temp Pulse Resp BP Sys/Paredes Pulse Ox Last 24 Hr 97.1 F-98.4 F 63-75 16-20 100-147/52-68 94-98 GENERAL: NAD HEAD: Normal with no signs of trauma. EYES: EOMI Sclera Clear. LUNGS: Clear to auscultation bilaterally no wheezing rales or rhonchi. On RA. HEART: +CHANEL with radiation to carotids. ABDOMEN: Soft, NDNT EXTREMITIES: . No CCE. NEUROLOGICAL: Cranial nerves II through XII grossly intact. PSYCH: Normal mood, normal affect. Laboratory Results - last 24 hr 05/18/20 05/18/20 05/18/20 11:10 11:10 12:30 WBC 26.1 H RBC 2.64 L Hgb 7.1 L Hct 22.8 L MCV 86.5 MCH 27.1 MCHC 31.3 L RDW 25.4 H Plt Count 601 H MPV 8.7 Sodium 138 Potassium 5.1 Chloride 102 Carbon Dioxide 33 H Anion Gap 2 L BUN 26.7 H Creatinine 0.5 L Est GFR (CKD-EPI)AfAm 122.86 Est GFR (CKD-EPI)NonAf 106.01 Random Glucose 103 Calcium 8.3 L Phosphorus 4.4 Magnesium 2.3 Blood Type B POSITIVE Antibody Screen Negative Crossmatch See Detail Active Medications Generic Name Dose Route Start Last Admin Trade Name Freq PRN Reason Stop Dose Admin Acetaminophen 650 mg 05/07/20 23:36 05/09/20 10:00 Tylenol - PO 650 mg Q6H PRN Administration PAIN LEVEL 1-3 Allopurinol 300 mg 05/08/20 15:00 05/18/20 09:58 Zyloprim - PO 300 mg DAILY ABBY Administration Anagrelide HCl 1 mg 05/14/20 22:00 05/18/20 09:58 Agrylin PO 1 mg BID ABBY Administration Furosemide 40 mg 05/17/20 10:00 05/18/20 09:58 Lasix - PO 40 mg DAILY ABBY Administration Sotalol HCl 80 mg 05/08/20 10:00 05/18/20 09:58 Betapace - PO 80 mg BID ABBY Administration Tamsulosin HCl 0.4 mg 05/15/20 08:39 05/18/20 08:10 Flomax - PO 0.4 mg DAILY@0830 [facility] Administration ASSESSMENT/PLAN: 74-year-old male history of transfusion dependent MDS, A. fib, pulmonary hypertension presented for PRBC transfusion and was found to have severe anemia due to right lower extremity hematoma #transfusion dependent anemia with MDS/MPN - Patient has received multiple transfusions without much hgb response - Status post cryoprecipitate, platelets and 3 units PRBC. Per Heme, transfuse to goal over 7. Patient currently receiving 1 u PRBC with Lasix 05/18/2020 increase anagrelide to 1.5mg in am and 1mg in PM per heme - Case discussed with Dr Ac. Factor 8 level needed at this time to assess for bleeding risk for possible bone marrow intervention. - continue allopurinol - Conrad test negative # right lower extremity hematoma - CT shows extensive infiltration into muscle and fascia - Subsiding. Continue to monitor daily #paroxysmal afib - continue Sotalol #acute on chronic CHF - echo: EF: 55-60%, RV borderline dilated - lasix 40 PO Daily #carotid stenosis - on ASA but will hold Dispo: D/C in am. Visit type - Emergency Visit Emergency Visit: No - New Patient This patient is new to me today: No - Critical Care Critical Care patient: No - Discharge Referral Referred to [facility] Med P.C[facility] No - Medication Review Med list reviewed for High Risk Meds patients 65 and older: Yes ATTENDING PHYSICIAN STATEMENT I saw and evaluated the patient. I reviewed the resident's note and discussed the case with the resident. I agree with the resident's findings and plan as documented. SUBJECTIVE: OBJECTIVE: ASSESSMENT AND PLAN:
[2020-05-19 07:16] LABS: HEMATOCRIT 25.2 % (35.4-49); MCH 27.3 pg (25.7-33.7); MCHC 31.9 g/dl (32.0-35.9); MEAN CELL VOLUME 85.4 fl (80-96); MEAN PLT VOLUME 8.8 fl (7.5-11.1); PLATELET COUNT 512 K/MM3 (134-434); RBC 2.95 M/mm3 (4.00-5.60); RDW 22.9 % (11.9-15.9); WHITE BLOOD COUNT 21.1 K/mm3 (4.0-10.0)
[2020-05-19 07:50] LABS: ALBUMIN 3.5 g/dl (3.4-5.0); BILIRUBIN,TOTAL 1.9 mg/dL (0.2-1); BLOOD UREA NITROGEN 27.4 mg/dL (7-18); CALCIUM 8.1 mg/dL (8.5-10.1); CREATININE 0.5 mg/dL (0.55-1.3); MAGNESIUM 2.5 mg/dL (1.8-2.4); PHOSPHOROUS 5.1 mg/dL (2.5-4.9); POTASSIUM 5.6 mmol/L (3.5-5.1); TOT PROT 5.7 g/dl (6.4-8.2)
[2020-05-19] MEDS ORDERED: INSULIN REGULAR HUMAN 100 UNITS/ML *VIAL IVPUSH ONE (07:54)
[2020-05-19] MEDS ORDERED: DEXTROSE 50%-WATER - 25 GM/50 ML VIAL IVPUSH ONE (07:55)
[2020-05-19] MEDS: TAMSULOSIN HCL 0.4 MG CAP PO SCH (08:01)
[2020-05-19] MEDS ORDERED: DEXTROSE 50%-WATER 25 GM/50 ML DISP.SYRIN ONE (08:34)
[2020-05-19] MEDS: SOTALOL HCL 80 MG TABLET (FP) PO SCH (09:18)
[2020-05-19] MEDS: FUROSEMIDE 40 MG TABLET (FP) PO SCH (09:18)
[2020-05-19] MEDS: ALLOPURINOL 300 MG TABLET (FP) PO SCH (09:18)
[2020-05-19] MEDS ORDERED: ANAGRELIDE HCL 0.5 MG CAPSULE PO SCH (10:00)
--- NOTE | 2020-05-19 12:43 | PN ---
Progress Note (short form) - Note Progress Note: Consult Specialty:: Cardiology for Chief Complaint: Bilateral LE edema s: no cp palps dizzy sob edema. wants to go home Current Medications Generic Name Dose Route Start Last Admin Trade Name Fremartin PRN Reason Stop Dose Admin Acetaminophen 650 mg 05/07/20 23:36 05/09/20 10:00 Tylenol - PO 650 mg Q6H PRN Administration PAIN LEVEL 1-3 Allopurinol 300 mg 05/08/20 15:00 05/19/20 09:18 Zyloprim - PO 300 mg DAILY ABBY Administration Anagrelide HCl 1.5 mg 05/19/20 10:00 05/19/20 11:41 Agrylin - PO 1.5 mg DAILY ABBY Administration Furosemide 40 mg 05/17/20 10:00 05/19/20 09:18 Lasix - PO 40 mg DAILY ABBY Administration Sotalol HCl 80 mg 05/08/20 10:00 05/19/20 09:18 Betapace - PO 80 mg BID ABBY Administration Tamsulosin HCl 0.4 mg 05/15/20 08:39 05/19/20 08:01 Flomax - PO 0.4 mg DAILY@0830 ABBY Administration Vital Signs Period Temp Pulse Resp BP Sys/Paredes Pulse Ox Last 24 Hr 97.7 F-98.5 F 67-73 16-20 100-158/52-70 96-100 Constitutional: Yes: No Distress, Calm Eyes: Yes: Conjunctiva Clear HENT: Yes: Atraumatic Neck: Yes: Trachea Midline Respiratory: Yes: CTA Bilaterally (no wheezing or rales) Gastrointestinal: Yes: Soft (mildly distended) Cardiovascular: Yes: Pulse Irregular JVD: Yes PMI: Non-Displaced Heart Sounds: Yes: S1, S2 (irreg) Edema: no Peripheral Pulses WNL: Yes Neurological: Yes: Alert, Oriented Laboratory Last Values WBC 21.1 K/mm3 (4.0-10.0) H 05/19/20 05:55 RBC 2.95 M/mm3 (4.00-5.60) L 05/19/20 05:55 Hgb 8.0 GM/dL (11.7-16.9) L 05/19/20 05:55 Hct 25.2 % (35.4-49) L 05/19/20 05:55 MCV 85.4 fl (80-96) 05/19/20 05:55 MCH 27.3 pg (25.7-33.7) 05/19/20 05:55 MCHC 31.9 g/dl (32.0-35.9) L 05/19/20 05:55 RDW 22.9 % (11.9-15.9) H 05/19/20 05:55 Plt Count 512 K/MM3 (134-434) H 05/19/20 05:55 MPV 8.8 fl (7.5-11.1) 05/19/20 05:55 Absolute Neuts (auto) 22.3 K/mm3 (1.5-8.0) H 05/11/20 10:55 Neutrophils % 86.2 % (42.8-82.8) H 05/11/20 10:55 Neutrophils % (Manual) 78.0 % (42.8-82.8) 05/11/20 10:55 Band Neutrophils % 11.0 % 05/11/20 10:55 Lymphocytes % 4.8 % (8-40) L D 05/11/20 10:55 Lymphocytes % (Manual) 6.0 % (8-40) L 05/11/20 10:55 Monocytes % 1.4 % (3.8-10.2) L 05/11/20 10:55 Monocytes % (Manual) 0 % (3.8-10.2) L 05/11/20 10:55 Eosinophils % 2.2 % (0-4.5) 05/11/20 10:55 Eosinophils % (Manual) 1.0 % (0-4.5) 05/11/20 10:55 Basophils % 5.4 % (0-2.0) H* 05/11/20 10:55 Basophils % (Manual) 1.0 % (0-2.0) D 05/11/20 10:55 Myelocytes % (Man) 0 % (0-2) 05/11/20 10:55 Promyelocytes % (Man) 0 % (0-2) 05/11/20 10:55 Blast Cells % (Manual) 0 % (0-0) 05/11/20 10:55 Nucleated RBC % 1 % (0-0) H 05/11/20 10:55 Metamyelocytes 3 % (0-2) H D 05/11/20 10:55 Hypochromia 0 05/11/20 10:55 Toxic Granulation 2+ 05/11/20 10:55 Platelet Estimate Decreased 05/11/20 10:55 Platelet Comment Present 05/11/20 10:55 Polychromasia 1+ 05/11/20 10:55 Poikilocytosis 1+ 05/11/20 10:55 Basophilic Stippling 1+ 05/07/20 10:00 Anisocytosis 1+ 05/11/20 10:55 Microcytosis 1+ 05/11/20 10:55 Macrocytosis 0 05/11/20 10:55 Spherocytes 1+ 05/11/20 10:55 Target Cells 1+ 05/11/20 10:55 Tear Drop Cells 1+ 05/11/20 10:55 Ovalocytes 1+ 05/11/20 10:55 Stomatocytes 1+ 05/07/20 10:00 Acanthocytes (Spur) 1+ 05/11/20 10:55 Haptoglobin < 10 mg/dL (34-355) L 05/08/20 10:29 PT with INR 15.80 SEC (9.7-13.0) H 05/09/20 10:20 INR 1.34 (0.83-1.09) H 05/09/20 10:20 PTT (Actin FS) 34.0 SECONDS (25.2-36.5) 05/09/20 10:20 Fibrinogen 249.0 mg/dL (238-498) 05/09/20 10:20 von Willebrand Activity 97 % (50-200) 05/08/20 15:25 von Willebrand Antigen 142 % (50-200) 05/08/20 15:25 Sodium 138 mmol/L (136-145) 05/19/20 05:55 Potassium 5.6 mmol/L (3.5-5.1) H 05/19/20 05:55 Chloride 100 mmol/L (98-107) 05/19/20 05:55 Carbon Dioxide 32 mmol/L (21-32) 05/19/20 05:55 Anion Gap 6 MMOL/L (8-16) L 05/19/20 05:55 BUN 27.4 mg/dL (7-18) H 05/19/20 05:55 Creatinine 0.5 mg/dL (0.55-1.3) L 05/19/20 05:55 Est GFR (CKD-EPI)AfAm 122.86 05/19/20 05:55 Est GFR (CKD-EPI)NonAf 106.01 05/19/20 05:55 Random Glucose 57 mg/dL (74-106) L 05/19/20 05:55 Uric Acid 11.1 mg/dL (2.6-7.2) H 05/08/20 06:30 Calcium 8.1 mg/dL (8.5-10.1) L 05/19/20 05:55 Phosphorus 5.1 mg/dL (2.5-4.9) H 05/19/20 05:55 Magnesium 2.5 mg/dL (1.8-2.4) H 05/19/20 05:55 Total Bilirubin 1.9 mg/dL (0.2-1) H 05/19/20 05:55 AST 33 U/L (15-37) 05/19/20 05:55 ALT 16 U/L (13-61) 05/19/20 05:55 Alkaline Phosphatase 90 U/L (45-117) 05/19/20 05:55 LD Total 612 U/L (87-246) H 05/08/20 06:30 Total Protein 5.7 g/dl (6.4-8.2) L 05/19/20 05:55 Albumin 3.5 g/dl (3.4-5.0) 05/19/20 05:55 Stool Occult Blood Negative (NEGATIVE) 05/09/20 04:00 SARS-CoV-2 (PCR) Negative (Negative) 05/08/20 11:00 Blood Type B POSITIVE 05/18/20 12:30 Antibody Screen Negative 05/18/20 12:30 Direct Antiglob Test Negative (NEGATIVE) 05/11/20 12:05 Crossmatch See Detail 05/18/20 12:30 tele: sr Assessment/Plan 74yr old man with a hx of HTN, MDS, hx of paroxysmal Afib, hemachromatosis, left ventricular diastolic dysfunction, recurring anemia, thrombocytopenia and critical carotid artery stenosis s/p CEA here for elective PRBC transfusion found to have worsened b/LE edema and R hip pain. 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 with component of cor pulmonale/right sided failure: -echo here with nl lvef, mod phtn -improved with IV lasix, lost 10 lbs during admission -cont lasix PO 40 mg daily (was on 20 mg three times a week at home) -daily BMP and weights to monitor renal fx/lytes carotid stenosis s/p cea: -ASA 81mg daily when hematoma, anemia resolves htn: -stable mds: - manage per heme onc spontaneous thigh hematoma: -resolving -vascular consulted anemia: - heme following - concern for hemolysis, less likely transfusion reaction, also with hematoma - monitoring H/H, PRBC transfusion with IV lasix yesterday per heme cardiac cuellar stable
--- NOTE | 2020-05-19 14:00 | PN ---
Teaching Attending Note Name of Resident: Rosalio Mott ATTENDING PHYSICIAN STATEMENT I saw and evaluated the patient. I reviewed the resident's note and discussed the case with the resident. I agree with the resident's findings and plan as documented. SUBJECTIVE: Seen and examined at bedside. feeling well. K+ increased s/p transfusion. Pe nding repeat K+ level. If improved medically cleared for discharge. OBJECTIVE Last Vital Signs Temp Pulse Resp BP Pulse Ox 97.7 F 67 18 149/70 98 05/19/20 09:18 05/19/20 09:18 05/19/20 09:18 05/19/20 09:18 05/19/20 09:18 PE:Per resident note Labs/Imaging: reviewed ASSESSMENT/PLAN 74-year-old male history of transfusion dependent MDS, A. fib, pulmonary hypertension presented for PRBC transfusion and was found to have severe anemia due to right lower extremity hematoma #Symptomatic acute blood loss anemia secondary to hematoma with underlying transfusion dependent MDS Status post cryoprecipitate, platelets and 4 units PRBC Hematology on board: Appreciate recommendations Hold aspirin Continue allopurinol increase anagrelide to 1.5mg in am and 1mg in PM per heme #Leukamoid rxn: improved #concern for hemolysis: Sybil test negative -low haptoglobin and high LDH. Possible delayed transfusion rxn less likely given negative sybil test -heme on board -hgb currently stable #Acute on chronic diastolic valvular CHF with right-sided failure: improved Cardiology on board: Appreciate recommendations discharge on lasix 40 po daily #A. fib Continue sotalol Holding aspirin secondary to bleed. To be restarted as outpatient per heme Dispo: medically cleared for discharge tonight following transfusion of 1U PRBC
--- NOTE | 2020-05-19 14:31 | DS ---
Physical Exam: SUBJECTIVE: Patient seen and examined OBJECTIVE: Vital Signs Period Temp Pulse Resp BP Sys/Paredes Pulse Ox Last 24 Hr 97.7 F-98.5 F 67-73 14-20 115-158/52-70 96-100 PHYSICAL EXAM GENERAL: The patient is awake, alert, and fully oriented, in no acute distress. HEAD: Normal with no signs of trauma. EYES: PERRL, extraocular movements intact, sclera anicteric, conjunctiva clear. ENT: Ears normal, nares patent, oropharynx clear without exudates, moist mucous membranes. NECK: Trachea midline, full range of motion, supple. LUNGS: Breath sounds equal, clear to auscultation bilaterally, no wheezes, no crackles, no accessory muscle use. HEART: Regular rate and rhythm, S1, S2 without murmur, rub or gallop. ABDOMEN: Soft, nontender, nondistended, normoactive bowel sounds, no guarding, no rebound, no hepatosplenomegaly, no masses. EXTREMITIES: 2+ pulses, warm, well-perfused, no edema. NEUROLOGICAL: Cranial nerves II through XII grossly intact. Normal speech, gait not observed. PSYCH: Normal mood, normal affect. SKIN: Warm, dry, normal turgor, no rashes or lesions noted. LABS Laboratory Results - last 24 hr 05/18/20 05/19/20 05/19/20 12:30 05:55 05:55 WBC 21.1 H RBC 2.95 L Hgb 8.0 L Hct 25.2 L MCV 85.4 MCH 27.3 MCHC 31.9 L RDW 22.9 H Plt Count 512 H MPV 8.8 Sodium 138 Potassium 5.6 H Chloride 100 Carbon Dioxide 32 Anion Gap 6 L BUN 27.4 H Creatinine 0.5 L Est GFR (CKD-EPI)AfAm 122.86 Est GFR (CKD-EPI)NonAf 106.01 Random Glucose 57 L Calcium 8.1 L Phosphorus 5.1 H Magnesium 2.5 H Total Bilirubin 1.9 H AST 33 ALT 16 Alkaline Phosphatase 90 Total Protein 5.7 L Albumin 3.5 Blood Type B POSITIVE Antibody Screen Negative Crossmatch See Detail 05/19/20 09:30 WBC RBC Hgb Hct MCV MCH MCHC RDW Plt Count MPV Sodium Potassium 4.3 Chloride Carbon Dioxide Anion Gap BUN Creatinine Est GFR (CKD-EPI)AfAm Est GFR (CKD-EPI)NonAf Random Glucose Calcium Phosphorus Magnesium Total Bilirubin AST ALT Alkaline Phosphatase Total Protein Albumin Blood Type Antibody Screen Crossmatch HOSPITAL COURSE: Date of Admission:05/07/20 Date of Discharge: 05/19/20 Discharge Summary Reason For Visit: ANEMIA Current Active Problems Hematoma of right thigh (Acute) Condition: Improved - Instructions Diet, Activity, Other Instructions: You presented to the hospital and admitted for a anemia, likely from a hematoma (blood collection) in your right thigh. You received multiple blood transfusions. You were also noted to have increased swelling in your lower legs. You Furosemide (Lasix) medication was decreased to 40 mg Daily The dosage of your Anagrelide medication for your MDS was changed to 1.0 mg in am, 0.5 MG at lunch, and 1mg in PM Please stop taking aspirin until it is restarted by your induction machine operator. Please follow up with your Heme/Onc doctor in 1 week to redraw your blood (CBC, CMP, Mag, Phos) Please follow up with your primary care doctor in 1 week. You were found to have some abnormalities on imaging if your lumbar spine. Please follow up with your primary care doctor regarding this. Please return to the emergency department immediately if you begin to experience shortness of breath, lightheadedness, chest pain, increasing weakness, bleeding, or any other abnormal symptoms. Referrals: Yashira Mendoza MD [Staff Physician] - 1 Week Disposition: VNS/HOME HEALTH CARE - Home Medications Comprehensive Discharge Medication List: Ambulatory Orders Tamsulosin HCl 0.4 mg PO DAILY 08/31/12 Amlodipine Besylate [Norvasc -] 5 mg PO DAILY #30 tablet 09/27/18 Sotalol HCl [Betapace -] 80 mg PO BID@0800,2000 #60 tablet 09/27/18 Omeprazole 1 cap PO DAILY 05/11/20 Anagrelide HCl [Agrylin -] 1 mg PO ASDIR capsule 05/19/20 Furosemide [Lasix -] 40 mg PO DAILY #30 tablet 05/19/20 - Discharge Referral Referred to [facility] Med P.C.: No ATTENDING PHYSICIAN STATEMENT I saw and evaluated the patient. I reviewed the resident's note and discussed the case with the resident. I agree with the resident's findings and plan as documented. SUBJECTIVE: OBJECTIVE: ASSESSMENT AND PLAN:
--- NOTE | 2020-05-19 17:04 | CON.CARD ---
Consult - Past Medical History Cardio/Vascular: Yes: AFIB, HTN, Mitral Insufficiency, Pulmonary Hypertension Pulmonary: Yes: COPD Gastrointestinal: No: Ascites, Cancer, Constipation, Crohn's Disease, Diverticulitis, Diverticulosis, Esophageal Varices, Gastritis, GERD, GI Bleed, Hemorrhoids, Hiatal Hernia, Inflamatory Bowel Disease, Irritable Bowel Disease, Pancreatitis, Peptic Ulcer Disease, Ulcerative Colitis, Other Hepatobiliary: No: Cirrhosis, Cholelithiasis, Cholecystitis, Choledocholithiasis, Hepatitis A, Hepatitis B, Hepatitis C, Other Renal/: No: Renal Failure, Renal Inusuff, BPH, Cancer, Hematuria, Hemod ialysis, Neurogenic Bladder, Renal Calculi, UTI, Other Infectious Disease: No: AIDS, C-Diff, Herpes Zoster, HIV, MRSA, STD's, Tuberculosis, VREF, Other Psych: No: Addictions, Anxiety, Bipolar, Depression, Panic, Psychosis, Schizophrenia, Other Musculoskeletal: No: Bursitis, Chronic low back pain, Hemiparesis, Hemiplegia, Osteoarthritis, Paraplegia, Other ENT: No: Allergic Rhinitis, Sinusitis, Other Endocrine: No: Pickett's Disease, Rowland's Disease, Diabetes Insipidus, Diabetes Mellitus, Hyperparathyroidism, Hyperthyroidism, Hypothyroidism, Osteopenia, SIADH, Other Dermatology: No: Basal Cell, Cellulitis, Eczema, Melanoma, Psoriasis, Squamous Cell, Other - Past Surgical History Past Surgical History: Yes: Hernia Repair - Alcohol/Substance Use Hx Alcohol Use: Yes - Smoking History Smoking history: Never smoked Have you smoked in the past 12 months: No Aproximately how many cigarettes per day: 0 If you are a former smoker, when did you quit?: 1 YR - Social History Usual Living Arrangement: Alone History of Recent Travel: No Home Medications - Allergies Allergies/Adverse Reactions: Allergies Allergy/AdvReac Type Severity Reaction Status Date / Time No Known Allergies Allergy Verified 04/02/19 10:36 - Home Medications Home Medications: Ambulatory Orders Tamsulosin HCl 0.4 mg PO DAILY 08/31/12 Amlodipine Besylate [Norvasc -] 5 mg PO DAILY #30 tablet 09/27/18 Sotalol HCl [Betapace -] 80 mg PO BID@0800,2000 #60 tablet 09/27/18 Omeprazole 1 cap PO DAILY 05/11/20 Anagrelide HCl [Agrylin -] 1 mg PO ASDIR capsule 10/13/20 Furosemide [Lasix -] 40 mg PO DAILY #30 tablet 05/19/20 Family Medical History Family History: Unremarkable (not pertinent to this presentation) Vital Signs: Vital Signs Temperature 98.2 F 05/19/20 14:01 Pulse Rate 73 05/19/20 14:01 Respiratory Rate 14 05/19/20 14:01 Blood Pressure 115/52 L 05/19/20 14:01 O2 Sat by Pulse Oximetry (%) 98 05/19/20 09:18 Constitutional: Yes: Well Nourished, No Distress Eyes: No: Sclera Icterus HENT: No: Nasal Congestion Neck: No: Decreased ROM Respiratory: Yes: CTA Bilaterally. No: Accessory Muscle Use Gastrointestinal: Yes: Normal Bowel Sounds. No: Distention, Hepatomegaly, Palpable Mass, Tenderness Cardiovascular: Yes: Regular Rate and Rhythm JVD: No Carotid Bruit: No PMI: Non-Displaced Heart Sounds: Yes: S1, S2. No: Gallop Murmur: No: Systolic Murmur, Diastolic Murmur Musculoskeletal: Yes: Other (No kyphosis) Extremities: No: Cool, Cyanosis Edema: No Peripheral Pulses: 2+ Left Carotid, 2+ Right Carotid, 2+ Left Doralis Pedis, 2+ Right Dorsalis Pedis Integumentary: No: Jaundice Neurological: Yes: Alert, Oriented (x3) Psychiatric: No: Agitated - Other Data Labs, Other Data: CBC, BMP 05/19/20 05:55 05/19/20 09:30 INR, PTT INR 1.34 (0.83-1.09) H 05/09/20 10:20 Fibrinogen 249.0 mg/dL (238-498) 05/09/20 10:20
[2020-05-19 18:33] VITALS: BP 128/50; PULSE 66; TEMP 98
== END 2020-05-19 19:30 | disposition home health service (06) | DRG 555 ==
LOC: JONCBLOOD 08:35 → SUATTDRO 08:35 → JONCBLOOD 08:36 → J7W 08:36 → J4S 05-08 14:55
PROVIDERS: ADMIT Internal Medicine; ATTEND Internal Medicine
PROC: 30233N1 Transfusion of Nonautologous Red Blood Cells into Peripheral Vein, Percutaneous Approach (ICD-10-PCS; principal; 2020-05-08)
PROC: 30233M1 Transfusion of Nonautologous Plasma Cryoprecipitate into Peripheral Vein, Percutaneous Approach (ICD-10-PCS; 2020-05-08)
PROC: 30233R1 Transfusion of Nonautologous Platelets into Peripheral Vein, Percutaneous Approach (ICD-10-PCS; 2020-05-08)
DX: M79.81 Nontraumatic hematoma of soft tissue (principal); I50.33 Acute on chronic diastolic (congestive) heart failure; I26.09 Other pulmonary embolism with acute cor pulmonale; D62 Acute posthemorrhagic anemia; D47.1 Chronic myeloproliferative disease; E87.3 Alkalosis; D46.9 Myelodysplastic syndrome, unspecified; E78.5 Hyperlipidemia, unspecified; I11.0 Hypertensive heart disease with heart failure; I48.0 Paroxysmal atrial fibrillation; D72.823 Leukemoid reaction; E87.5 Hyperkalemia
CPT/HCPCS: 36415; 36430; 72131-TC; 72192-TC; 73700-TC-RT; 74150-TC; 80048; 80053; 82272; 82306; 83010; 83615; 83735; 84100; 84132; 84550; 85025; 85027; 85240; 85246; 85247; 85384; 85610; 85730; 86850; 86880; 86900; 86901; 86922; 88300-TC; 93005; 93010; 93306-TC; 93970-TC; 97116-GP; 97162-GP; J0897; P9012; P9017; P9034; P9058; U0003

== ENCOUNTER 2020-08-03 08:57 | Day surgery (SDC) | payer OTHER, BC ==
[2020-08-03 09:37] LABS: BASO % 3.9 % (0-2.0); EOS % 2.6 % (0-4.5); HEMATOCRIT 22.9 % (35.4-49); LYMPH % 3.9 % (8-40); MCH 23.2 pg (25.7-33.7); MCHC 28.5 g/dl (32.0-35.9); MEAN CELL VOLUME 81.6 fl (80-96); MONO % 1.4 % (3.8-10.2); NEUT % 88.2 % (42.8-82.8); PLATELET COUNT 399 K/MM3 (134-434); RDW 39.2 % (11.9-15.9)
[2020-08-03 09:44] LABS: WHITE BLOOD COUNT 35.2 K/mm3 (4.0-10.0)
[2020-08-03 09:45] LABS: HEMOGLOBIN 6.5 GM/dL (11.7-16.9)
[2020-08-03 09:55] LABS: ALBUMIN 3.6 g/dl (3.4-5.0); BLOOD UREA NITROGEN 10.6 mg/dL (7-18); CALCIUM 8.1 mg/dL (8.5-10.1)
[2020-08-03 09:58] LABS: CREATININE 0.5 mg/dL (0.55-1.3)
[2020-08-03 10:00] LABS: BILIRUBIN,TOTAL 0.9 mg/dL (0.2-1); TOT PROT 5.9 g/dl (6.4-8.2)
[2020-08-03 11:43] LABS: ANISOCYTOSIS 2+; MACROCYTOSIS 0; PLATELET ESTIMATE NORMAL; TARGET CELLS 1+
[2020-08-03 14:10] VITALS: BP 118/53; PULSE 74; TEMP 98.1
== END 2020-08-03 19:05 | disposition home or self-care (01) ==
LOC: JONCBLOOD 08:57
PROVIDERS: ATTEND Internal Medicine Hematology & Oncology
PROC: 30233N1 Transfusion of Nonautologous Red Blood Cells into Peripheral Vein, Percutaneous Approach (ICD-10-PCS; principal; 2020-08-03)
DX: C94.6 Myelodysplastic disease, not elsewhere classified (principal); D63.0 Anemia in neoplastic disease
CPT/HCPCS: 36415; 36430; 80053; 85025; 86850; 86900; 86901; 86922; P9058

== ENCOUNTER 2020-09-04 08:04 | Day surgery (SDC) | payer OTHER, BC ==
[2020-09-04 08:44] LABS: BASO % 4.8 % (0-2.0); EOS % 2.9 % (0-4.5); HEMATOCRIT 21.8 % (35.4-49); LYMPH % 4.3 % (8-40); MCH 23.8 pg (25.7-33.7); MCHC 29.1 g/dl (32.0-35.9); MEAN CELL VOLUME 81.7 fl (80-96); MEAN PLT VOLUME 9.1 fl (7.5-11.1); MONO % 1.7 % (3.8-10.2); NEUT % 86.3 % (42.8-82.8); PLATELET COUNT 133 K/MM3 (134-434); RBC 2.67 M/mm3 (4.00-5.60); RDW 36.3 % (11.9-15.9)
[2020-09-04 08:55] LABS: WHITE BLOOD COUNT 47.5 K/mm3 (4.0-10.0)
[2020-09-04 08:56] LABS: HEMOGLOBIN 6.3 GM/dL (11.7-16.9)
[2020-09-04 09:03] LABS: POTASSIUM 4.9 mmol/L (3.5-5.1)
[2020-09-04 09:05] LABS: ALBUMIN 3.8 g/dl (3.4-5.0); BLOOD UREA NITROGEN 16.2 mg/dL (7-18); CALCIUM 8.4 mg/dL (8.5-10.1)
[2020-09-04 09:09] LABS: CREATININE 0.6 mg/dL (0.55-1.3)
[2020-09-04 09:10] LABS: BILIRUBIN,TOTAL 0.8 mg/dL (0.2-1); TOT PROT 6.1 g/dl (6.4-8.2)
[2020-09-04 11:39] LABS: ANISOCYTOSIS 2+; MACROCYTOSIS 1+; OVALOCYTE 2+; PLATELET ESTIMATE DECREASED
[2020-09-04] MEDS ORDERED: PORTA CATH FLUSH 10 ML IVPUSH ONE (15:12)
[2020-09-04 15:13] VITALS: BP 135/57; PULSE 78; TEMP 97.8
[2020-09-04 19:45] LABS: BASO % 3.7 % (0-2.0); EOS % 2.6 % (0-4.5); HEMATOCRIT 26.7 % (35.4-49); HEMOGLOBIN 8.2 GM/dL (11.7-16.9); LYMPH % 5.1 % (8-40); MCH 25.5 pg (25.7-33.7); MCHC 30.8 g/dl (32.0-35.9); MEAN CELL VOLUME 82.8 fl (80-96); MEAN PLT VOLUME 9.2 fl (7.5-11.1); MONO % 1.6 % (3.8-10.2); PLATELET COUNT 108 K/MM3 (134-434); RBC 3.22 M/mm3 (4.00-5.60); RDW 31.2 % (11.9-15.9)
[2020-09-04 19:54] LABS: WHITE BLOOD COUNT 43.8 K/mm3 (4.0-10.0)
[2020-09-04 20:38] LABS: ANISOCYTOSIS 2+; MACROCYTOSIS 0; OVALOCYTE 1+; PLATELET ESTIMATE DECREASED; TARGET CELLS 2+; TEAR DROP CELLS 1+
== END 2020-09-04 19:17 | disposition home or self-care (01) ==
LOC: JONCBLOOD 08:04
PROVIDERS: ATTEND Internal Medicine Hematology & Oncology
PROC: 30233N1 Transfusion of Nonautologous Red Blood Cells into Peripheral Vein, Percutaneous Approach (ICD-10-PCS; principal; 2020-09-04)
DX: C94.6 Myelodysplastic disease, not elsewhere classified (principal); D63.0 Anemia in neoplastic disease
CPT/HCPCS: 36415; 36430; 80053; 85025; 86850; 86900; 86901; 86922; P9058

== ENCOUNTER 2020-09-28 07:54 | Day surgery (SDC) | payer OTHER, BC ==
[2020-09-28 09:15] LABS: BASO % 4.5 % (0-2.0); EOS % 2.4 % (0-4.5); HEMATOCRIT 20.4 % (35.4-49); LYMPH % 6.7 % (8-40); MCH 24.6 pg (25.7-33.7); MCHC 29.7 g/dl (32.0-35.9); MEAN CELL VOLUME 82.9 fl (80-96); MEAN PLT VOLUME 8.3 fl (7.5-11.1); MONO % 2.1 % (3.8-10.2); NEUT % 84.3 % (42.8-82.8); PLATELET COUNT 820 K/MM3 (134-434); RBC 2.46 M/mm3 (4.00-5.60)
[2020-09-28 09:21] LABS: HEMOGLOBIN 6.1 GM/dL (11.7-16.9); WHITE BLOOD COUNT 47.5 K/mm3 (4.0-10.0)
[2020-09-28 09:31] LABS: POTASSIUM 4.7 mmol/L (3.5-5.1)
[2020-09-28 09:34] LABS: ALBUMIN 3.7 g/dl (3.4-5.0); BLOOD UREA NITROGEN 17.7 mg/dL (7-18); CALCIUM 8.6 mg/dL (8.5-10.1)
[2020-09-28 09:37] LABS: CREATININE 0.6 mg/dL (0.55-1.3)
[2020-09-28 09:38] LABS: BILIRUBIN,TOTAL 0.8 mg/dL (0.2-1); TOT PROT 5.8 g/dl (6.4-8.2)
[2020-09-28 11:38] LABS: ANISOCYTOSIS 2+; MACROCYTOSIS 0; OVALOCYTE 2+; PLATELET ESTIMATE INCREASED; TARGET CELLS 1+; TEAR DROP CELLS 1+
[2020-09-28] MEDS ORDERED: PORTA CATH FLUSH 10 ML IVPUSH ONE (18:23)
[2020-09-28 18:30] VITALS: PULSE 78
[2020-09-28 18:32] VITALS: TEMP 98.6
[2020-09-28 18:51] VITALS: BP 158/69
== END 2020-09-28 18:58 | disposition home or self-care (01) ==
LOC: JONCBLOOD 07:54
PROVIDERS: ATTEND Internal Medicine Hematology & Oncology
PROC: 30233N1 Transfusion of Nonautologous Red Blood Cells into Peripheral Vein, Percutaneous Approach (ICD-10-PCS; principal; 2020-09-28)
DX: C94.6 Myelodysplastic disease, not elsewhere classified (principal); D63.0 Anemia in neoplastic disease
CPT/HCPCS: 36415; 36430; 36511; 80053; 85025; 86850; 86900; 86901; 86922; P9038; P9058

== ENCOUNTER 2020-10-23 06:25 | Day surgery (SDC) | payer OTHER, BC ==
[2020-10-23 08:53] LABS: BASO % 4.2 % (0-2.0); EOS % 1.7 % (0-4.5); HEMATOCRIT 18.1 % (35.4-49); LYMPH % 4.3 % (8-40); MCH 25.9 pg (25.7-33.7); MCHC 30.6 g/dl (32.0-35.9); MEAN CELL VOLUME 84.6 fl (80-96); MONO % 1.7 % (3.8-10.2); NEUT % 88.1 % (42.8-82.8); PLATELET COUNT 171 K/MM3 (134-434); RBC 2.13 M/mm3 (4.00-5.60); RDW 28.3 % (11.9-15.9)
[2020-10-23 08:56] LABS: HEMOGLOBIN 5.5 GM/dL (11.7-16.9); WHITE BLOOD COUNT 31.8 K/mm3 (4.0-10.0)
[2020-10-23 09:19] LABS: POTASSIUM 4.2 mmol/L (3.5-5.1)
[2020-10-23 09:21] LABS: CALCIUM 8.8 mg/dL (8.5-10.1)
[2020-10-23 09:22] LABS: ALBUMIN 3.6 g/dl (3.4-5.0); BLOOD UREA NITROGEN 16.2 mg/dL (7-18)
[2020-10-23 09:25] LABS: CREATININE 0.6 mg/dL (0.55-1.3)
[2020-10-23 09:27] LABS: BILIRUBIN,TOTAL 0.8 mg/dL (0.2-1); TOT PROT 5.7 g/dl (6.4-8.2)
[2020-10-23 09:58] LABS: ANISOCYTOSIS 2+; MACROCYTOSIS 1+; OVALOCYTE 1+; PLATELET ESTIMATE NORMAL
[2020-10-23 16:54] VITALS: BP 128/58; PULSE 80; TEMP 98.4
== END 2020-10-23 17:14 | disposition home or self-care (01) ==
LOC: JONCBLOOD 06:25
PROVIDERS: ATTEND Internal Medicine Hematology & Oncology
PROC: 30233N1 Transfusion of Nonautologous Red Blood Cells into Peripheral Vein, Percutaneous Approach (ICD-10-PCS; principal; 2020-10-23)
DX: C94.6 Myelodysplastic disease, not elsewhere classified (principal); D63.8 Anemia in other chronic diseases classified elsewhere
CPT/HCPCS: 36415; 36430; 80053; 85025; 86850; 86900; 86901; 86922; P9038; P9058

== ENCOUNTER 2020-11-13 08:07 | Day surgery (SDC) | payer OTHER, BC ==
[2020-11-13 17:01] VITALS: TEMP 97.8
[2020-11-13 17:02] VITALS: BP 120/69; PULSE 66
== END 2020-11-13 17:04 | disposition home or self-care (01) ==
LOC: JONCBLOOD 08:07
PROVIDERS: ATTEND Internal Medicine Hematology & Oncology
PROC: 30233N1 Transfusion of Nonautologous Red Blood Cells into Peripheral Vein, Percutaneous Approach (ICD-10-PCS; principal; 2020-11-13)
DX: C94.6 Myelodysplastic disease, not elsewhere classified (principal); D63.8 Anemia in other chronic diseases classified elsewhere
CPT/HCPCS: 36430; 36511; 86850; 86900; 86901; 86922; P9038; P9058

== ENCOUNTER 2020-12-11 06:49 | Day surgery (SDC) | payer OTHER, BC ==
[2020-12-11 18:31] VITALS: BP 117/46; PULSE 76; TEMP 98.4
== END 2020-12-11 18:15 | disposition home or self-care (01) ==
LOC: JONCBLOOD 06:49
PROVIDERS: ATTEND Internal Medicine Hematology & Oncology
PROC: 30233N1 Transfusion of Nonautologous Red Blood Cells into Peripheral Vein, Percutaneous Approach (ICD-10-PCS; principal; 2020-12-11)
DX: C94.6 Myelodysplastic disease, not elsewhere classified (principal); D63.8 Anemia in other chronic diseases classified elsewhere
CPT/HCPCS: 36430; 86850; 86900; 86901; 86922; P9058

== ENCOUNTER 2020-12-16 07:20 | Day surgery (SDC) | payer OTHER, BC ==
[2020-12-16 09:31] LABS: BASO % 4.9 % (0-2.0); EOS % 1.9 % (0-4.5); HEMATOCRIT 28.2 % (35.4-49); LYMPH % 4.4 % (8-40); MCH 27.1 pg (25.7-33.7); MCHC 31.9 g/dl (32.0-35.9); MEAN CELL VOLUME 85.1 fl (80-96); MEAN PLT VOLUME 9.1 fl (7.5-11.1); MONO % 1.5 % (3.8-10.2); NEUT % 87.3 % (42.8-82.8); RBC 3.31 M/mm3 (4.00-5.60); RDW 25.9 % (11.9-15.9); WHITE BLOOD COUNT 29.8 K/mm3 (4.0-10.0)
[2020-12-16 09:39] LABS: PLATELET COUNT 122 K/MM3 (134-434)
[2020-12-16] MEDS ORDERED: LUSPATERCEPT AAMT SQ ONE (10:00)
[2020-12-16 10:04] LABS: CALCIUM 8.3 mg/dL (8.5-10.1)
[2020-12-16 10:05] LABS: ALBUMIN 3.7 g/dl (3.4-5.0); BLOOD UREA NITROGEN 18.9 mg/dL (7-18)
[2020-12-16 10:08] LABS: CREATININE 0.7 mg/dL (0.55-1.3)
[2020-12-16 10:09] LABS: BILIRUBIN,TOTAL 1.4 mg/dL (0.2-1)
[2020-12-16 14:03] LABS: ANISOCYTOSIS 1+; MACROCYTOSIS 0; PLATELET ESTIMATE NORMAL
[2020-12-16 15:35] VITALS: BP 122/55; PULSE 68; TEMP 98
== END 2020-12-16 11:30 | disposition home or self-care (01) ==
LOC: JONCCHEMO 07:20
PROVIDERS: ATTEND Internal Medicine Hematology & Oncology
PROC: 3E013GC Introduction of Other Therapeutic Substance into Subcutaneous Tissue, Percutaneous Approach (ICD-10-PCS; principal; 2020-12-16)
DX: C94.6 Myelodysplastic disease, not elsewhere classified (principal); D63.8 Anemia in other chronic diseases classified elsewhere
CPT/HCPCS: 36415; 80053; 85025; 96372; J0896

== ENCOUNTER 2021-01-06 07:44 | Day surgery (SDC) | payer OTHER, BC ==
[2021-01-06] MEDS ORDERED: LUSPATERCEPT AAMT SQ ONE (10:00)
[2021-01-06 15:06] LABS: BASO % 3.6 % (0-2.0); EOS % 1.6 % (0-4.5); LYMPH % 10.3 % (8-40); MCH 25.7 pg (25.7-33.7); MCHC 31.3 g/dl (32.0-35.9); MEAN CELL VOLUME 82.2 fl (80-96); MONO % 2.1 % (3.8-10.2); NEUT % 82.4 % (42.8-82.8); PLATELET COUNT 438 K/MM3 (134-434); RBC 2.68 M/mm3 (4.00-5.60); RDW 28.9 % (11.9-15.9)
[2021-01-06 15:26] LABS: CALCIUM 8.9 mg/dL (8.5-10.1); HEMOGLOBIN 6.9 GM/dL (11.7-16.9); WHITE BLOOD COUNT 39.9 K/mm3 (4.0-10.0)
[2021-01-06 15:27] LABS: BLOOD UREA NITROGEN 28.9 mg/dL (7-18)
[2021-01-06 15:30] LABS: CREATININE 0.6 mg/dL (0.55-1.3)
[2021-01-06 15:31] LABS: BILIRUBIN,TOTAL 0.8 mg/dL (0.2-1)
[2021-01-06 15:32] LABS: TOT PROT 5.9 g/dl (6.4-8.2)
[2021-01-06 18:02] LABS: ANISOCYTOSIS 1+; MACROCYTOSIS 0; PLATELET ESTIMATE NORMAL; TEAR DROP CELLS 1+
[2021-01-06 18:29] VITALS: BP 105/53; PULSE 68; TEMP 97.9
== END 2021-01-06 16:35 | disposition home or self-care (01) ==
LOC: JONCCHEMO 07:44
PROVIDERS: ATTEND Internal Medicine Hematology & Oncology
PROC: 3E013GC Introduction of Other Therapeutic Substance into Subcutaneous Tissue, Percutaneous Approach (ICD-10-PCS; principal; 2021-01-06)
DX: C94.6 Myelodysplastic disease, not elsewhere classified (principal)
CPT/HCPCS: 36415; 36430; 80053; 85025; 86850; 86900; 86901; 86922; 96372; J0896; P9058

== ENCOUNTER 2021-01-07 08:01 | Day surgery (SDC) | payer OTHER, BC ==
[2021-01-07 18:21] VITALS: BP 157/67; PULSE 77; TEMP 98.3
[2021-01-07] MEDS ORDERED: PORTA CATH FLUSH 10 ML IVPUSH ONE (18:21)
== END 2021-01-07 18:34 | disposition home or self-care (01) ==
LOC: JONCBLOOD 08:01
PROVIDERS: ATTEND Internal Medicine Hematology & Oncology
PROC: 30233N1 Transfusion of Nonautologous Red Blood Cells into Peripheral Vein, Percutaneous Approach (ICD-10-PCS; principal; 2021-01-07)
DX: D47.1 Chronic myeloproliferative disease (principal)
CPT/HCPCS: 36430; 86922

== ENCOUNTER 2021-01-27 11:18 | Day surgery (SDC) | payer OTHER, BC ==
[2021-01-27 11:11] LABS: BASO % 4.8 % (0-2.0); EOS % 1.8 % (0-4.5); HEMATOCRIT 28.1 % (35.4-49); HEMOGLOBIN 8.6 GM/dL (11.7-16.9); LYMPH % 4.2 % (8-40); MCH 26.5 pg (25.7-33.7); MCHC 30.5 g/dl (32.0-35.9); MEAN CELL VOLUME 86.8 fl (80-96); MEAN PLT VOLUME 8.7 fl (7.5-11.1); MONO % 1.4 % (3.8-10.2); NEUT % 87.8 % (42.8-82.8); PLATELET COUNT 373 10^3/uL (134-434); RBC 3.24 M/mm3 (4.00-5.60); RDW 28.9 % (11.9-15.9)
[2021-01-27 11:18] LABS: WHITE BLOOD COUNT 42.7 K/mm3 (4.0-10.0)
[~2021-01-27 11:18] MED LIST changes: -HEPARIN NA (PORCINE) 5,000 UNITS/ML 1ML VIAL SQ ONE; -LIDOCAINE HCL 0.5%, 5 MG/ML (50mL SDVIAL) INF ONE; +LUSPATERCEPT AAMT SQ ONE
[2021-01-27 11:23] LABS: BLOOD UREA NITROGEN 16.2 mg/dL (7-18); CALCIUM 8.6 mg/dL (8.5-10.1)
[2021-01-27 11:26] LABS: CREATININE 0.5 mg/dL (0.55-1.3)
[2021-01-27 11:28] LABS: BILIRUBIN,TOTAL 0.7 mg/dL (0.2-1); TOT PROT 6.2 g/dl (6.4-8.2)
[2021-01-27 11:49] LABS: ANISOCYTOSIS 3+; MACROCYTOSIS 2+; OVALOCYTE 1+; PLATELET ESTIMATE NORMAL; TARGET CELLS 1+; TEAR DROP CELLS 1+
[2021-01-27 17:36] VITALS: BP 118/70; PULSE 69; TEMP 97.7
== END 2021-01-27 12:15 | disposition home or self-care (01) ==
LOC: JONCCHEMO 11:18
PROVIDERS: ATTEND Internal Medicine Hematology & Oncology
PROC: 3E013GC Introduction of Other Therapeutic Substance into Subcutaneous Tissue, Percutaneous Approach (ICD-10-PCS; principal; 2021-01-27)
DX: D46.4 Refractory anemia, unspecified (principal); D47.1 Chronic myeloproliferative disease; Z76.89 Persons encountering health services in other specified circumstances
CPT/HCPCS: 36415; 80053; 85025; 96372; J0896